=== PATIENT | female | born 1940 | race Caucasian/White ===

== ENCOUNTER 2019-04-10 13:31 | Inpatient (IN) | payer MEDICARE, OTHER ==
[~2019-04-10] VITALS: Ht 172.7 cm; Wt 128.4 kg
[~2019-04-10 13:31] MED LIST: ALEVE220 MG PO; ASPIRIN EC81 MG PO; ATENOLOL50 MG PO; COUMADIN5 MG PO; HYDROCODON-ACE1 EA11 PO; IRON18 MG PO; MAGNESIUM OXID250 MG PO; MIRALAX17 GM PO; OXYCODONE HCL5 MG PO; PACERONE200 MG PO; PRAVACHOL20 MG PO; VITAMIN C100 MG PO; VITAMIN D-32000 UNI1 PO; XARELTO10 MG PO
--- NOTE | 2019-04-12 09:07 | CONS ---
[facility] [address], [place] [address] Signed DATE OF CONSULTATION: 04/11/2019 CHIEF COMPLAINT: Left groin wound. HISTORY OF PRESENT ILLNESS: Kassie is a 78-year-old female, whom I have known from the past for her colonoscopy. 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 However, she does use a cane and a walker after her cervical and lumbar surgeries. She had been in atrial fibrillation and underwent a cardiac ablation through the left groin access. Unfortunately, she went back 2 days later with rather significant hematoma in her left thigh with ongoing bleeding and a pseudoaneurysm in that left profunda artery. She had that repaired by her vascular surgeon, Dr. Mullen. The subcutaneous tissues were closed, but the skin and dermis were left open. She now has a wound VAC in the left groin. She has a 10 to 12 cm long vertical incision over that left groin for her repair. She is also quite deconditioned going along with her obesity. She is now in our swing bed here at [facility]. I have been asked to evaluate her left groin and help manage the wound VAC. In the meantime, she is doing quite well. PAST MEDICAL HISTORY: Paroxysmal atrial fibrillation, hypertension, hyperlipidemia, mood disorder, degenerative disk disease, migraines, obesity, TIA, hiatal hernia, cardiomegaly, possible pulmonary hypertension, cervical spinal stenosis, and carpal tunnel syndrome. PAST SURGICAL HISTORY: Includes a left total knee replacement, cardiac ablation on 03/31/2019, L3 through L5 fusion, cataract surgery, cholecystectomy, colonoscopy, and neck surgery. SOCIAL HISTORY: She does not smoke, but has a drink once in a while. 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 She still lives independently in her house and drives. However, she does use a cane and a walker to ambulate following her spinal surgeries. She is a full code. Her primary care provider is Dr. Parvez Vail. Her brother is Leo Tay at [phone]. Her operations and maintenance supervisor is Lori Recinos DO. Her vascular surgeon is Dr. Breana Mullen and her stock holder is Dr. Elvin Jamil. Her orthopedic surgeon is Dr. Michael Will. FAMILY HISTORY: Mom had osteoarthritis. Paternal grandmother had diabetes. She is not aware of her father's history. Electronically Signed By: LAINE DOMINGUEZ MD 04/12/19 0907 PATIENT NAME: KASSIE CUMMINS CONSULTATION DATE OF : 44 REPORT #: [id number] PHYSICIAN: LAINE DOMINGUEZ MD PCP: PARVEZ VAIL MD REPORT IS CONFIDENTIAL AND NOT TO BE RELEASED WITHOUT AUTHORIZATION [address] [address] Signed REVIEW OF SYSTEMS: She had 10 systems reviewed and really nothing new since I have seen her several years ago other than the heart issues. ALLERGIES: Simvastatin and Lyrica. MEDICATIONS: 1. Amiodarone. 2. Pravastatin. 3. Coumadin. 4. Atenolol. 5. Vitamin D. 6. Naproxen. 7. Magnesium oxide. 8. Vitamin B12. 9. Senokot S. 10. Lovenox. 11. MiraLAX. PHYSICAL EXAMINATION: VITAL SIGNS: Her blood pressure is 112/21, heart rate 66, respiratory rate 16, temperature is 98.2. She is 96% on room air. She is 5 feet 8 inches at 128 kg. GENERAL: Kassie is a 78-year-old female who appears overall healthy and at her stated age. She does have morbid obesity. She is alert, awake, and interactive. LUNGS: Clear to auscultation. HEART: Regular rate and rhythm without murmur. ABDOMEN: Obese, but soft. Left groin shows her wound VAC over the vertical incision. EXTREMITIES: She has significant ecchymoses throughout her thigh and down toward her ankle. It is already starting to lighten up in color. LABORATORY DATA: Her white blood cell count is 8.8, hemoglobin 10.0, neutrophils 78, BUN 12, creatinine 0.6. INR 1.5. Liver function tests are negative. Albumin is 2.3. Her recent stress test was negative. Her recent echocardiogram showed her left ventricular ejection fraction 66%. ASSESSMENT/PLAN: Kassie is a 78-year-old female status post cardiac ablation through the left groin approach. She had bleeding and a pseudoaneurysm in that left profundus requiring repair by her vascular surgeon. The skin has been left open. She has a small wound VAC over that. She is deconditioned and is now on our swing bed. We will follow along from a distance and at some point she may be able to close that wound secondarily once there is some granulation tissue and things settle down. I have reviewed this with Kassie and her Electronically Signed By: LAINE DOMINGUEZ MD 04/12/19 0907 PATIENT NAME: KASSIE CUMMINS [facility] CONSULTATION DATE OF : 44 REPORT #: [id number] PHYSICIAN: LAINE DOMINGUEZ MD PCP: PARVEZ VAIL MD REPORT IS CONFIDENTIAL AND NOT TO BE RELEASED WITHOUT AUTHORIZATION [facility] [address] [place] [address] Signed nurse. They have expressed understanding. She has expressed understanding and agrees with above plan. Laine Dominguez MD ALB/MODL /[id number] cc: MD Parvez Faulkner MD Dr. Patrick Aquilina Lindsay Frye, DO Dr. Breana Mullen Copies: LAINE DOMINGUEZ MD, MALCOLM MD ~ Electronically Signed By: LAINE DOMINGUEZ MD 04/12/19 0907 PATIENT NAME: KASSIE CUMMINS CONSULTATION DATE OF : 44 REPORT #: [id number] PHYSICIAN: LAINE DOMINGUEZ MD PCP: PARVEZ VAIL MD REPORT IS CONFIDENTIAL AND NOT TO BE RELEASED WITHOUT AUTHORIZATION
[2019-04-29] MEDS ORDERED: POLYETHYLENE GL17 GM PO (08:49)
[2019-04-29] MEDS ORDERED: DOK PLUS TABLE1 EACH PO (08:50)
[2019-04-29] MEDS ORDERED: VITAMIN B-121000 MCG PO (08:51)
[2019-04-29] MEDS ORDERED: NYSTATIN1 EAC2 TOP (08:52)
== END 2019-04-29 10:45 | disposition home health service (06) | DRG 556 ==
LOC: MS 13:31
PROVIDERS: ADMIT Internal Medicine
DX: M79.605 Pain in left leg (principal); I97.638 Postprocedural hematoma of a circulatory system organ or structure following other circulatory system procedure; Z68.41 Body mass index [BMI] 40.0-44.9, adult; M79.89 Other specified soft tissue disorders; I48.0 Paroxysmal atrial fibrillation; I10 Essential (primary) hypertension; E78.5 Hyperlipidemia, unspecified; F39 Unspecified mood [affective] disorder; G43.809 Other migraine, not intractable, without status migrainosus; E66.01 Morbid (severe) obesity due to excess calories; M48.02 Spinal stenosis, cervical region; Z48.01 Encounter for change or removal of surgical wound dressing; Z88.8 Allergy status to other drugs, medicaments and biological substances; Z86.73 Personal history of transient ischemic attack (TIA), and cerebral infarction without residual deficits; Z79.01 Long term (current) use of anticoagulants; Z79.1 Long term (current) use of non-steroidal anti-inflammatories (NSAID); Z79.899 Other long term (current) drug therapy
CPT/HCPCS: 36415; 81001; 82607; 82728; 82746; 83540; 84466; 85025; 85045; 85610; 87077; 87088; 87186; 97110; 97112; 97116; 97162; 97165; 97530; 97535; A9270; J1650

== ENCOUNTER 2019-07-17 03:59 | Emergency (ER) | payer MEDICARE, OTHER ==
[~2019-07-17] VITALS: Ht 172.7 cm; Wt 128.4 kg
--- OUTSIDE RECORDS SUMMARY | ~2019-07-17 | XMS | Encounter Summary ---
Demographics + + + | Address | [address] | | | [place] [address] | + + + | Home Phone | | + + + | Preferred Language | Unknown | + + + | Marital Status | | + + + | Baptism Affiliation | Unknown | + + + | Race | Unknown | + + + | Ethnic Group | Unknown | + + + Author + + + | Author | Located Within [facility] | | | and [place] | + + + | Organization | Located Within [facility] | | | and [place] | + + + | Address | Unknown | + + + | Phone | Unavailable | + + + Support + + + + + | Name | Relationship | Address | Phone | + + + + + | Veronica Anderson | ECON | [place] | | | | | [phone] | | + + + + + | Beatrice Paulson | ECON | [address] | | | | | [place] | | | | | [address] | | + + + + + Care Team Providers + +------+ + | Care Street Light Cleaner Name | Role | Phone | + +------+ + | Venkata Pettit MD | PCP | | + +------+ + Reason for Visit +--------+ + | Reason | Comments | +--------+ + | Other | Having pain | +--------+ + Encounter Details +--------+ + + + + | Date | Type | Department | Care Team | Description | +--------+ + + + + | 01/16/ | Telephone | [facility] | Justen Ribera | Other (Having pain) | | 2011 | | NEUROSURGERY [address] | [facility] [address] | | | | | [address] | [place] | | | | | [place] | [address] | | | | | [address] | [phone] | | | | | [phone] | | | +--------+ + + + + Social History + +-------+ +--------+------+ | Tobacco Use | Types | Packs/Day | Years | Date | | | | | Used | | + +-------+ +--------+------+ | Never Assessed | | | | | + +-------+ +--------+------+ + + + | Sex Assigned at | Date Recorded | | | | + + + | Not on file | | + + + + + + + | Job Start Date | Occupation | Industry | + + + + | Not on file | Not on file | Not on file | + + + + + + + + | Travel History | Travel Start | Travel End | + + + + + + | No recent travel history available. | + + documented as of this encounter Plan of Treatment +--------+---------+ + + + | Date | Type | Specialty | Care Team | Description | +--------+---------+ + + + | 10/06/ | Office | Cardiology | Elvin Jamil | | | 2019 | Visit | | [address] | | | | | | [facility] | | | | | | [place] | | | | | | [address] | | | | | | | | +--------+---------+ + + + documented as of this encounter Visit Diagnoses Not on filedocumented in this encounter"
--- OUTSIDE RECORDS SUMMARY | ~2019-07-17 | XMS | Clinical Summary ---
Demographics + + + | Address | [address] | | | [place] [address] | + + + | Home Phone | | + + + | Preferred Language | Unknown | + + + | Marital Status | | + + + | Jewish Affiliation | Unknown | + + + | Race | Unknown | + + + | Ethnic Group | Unknown | + + + Author + + + | Author | [facility] | | | and [place] | + + + | Organization | [facility] | | | and [place] | + + + | Address | Unknown | + + + | Phone | Unavailable | + + + Support + + + + + | Name | Relationship | Address | Phone | + + + + + | Veronica Anderson | ECON | [place] | | | | | [address] | | + + + + + | Beatrice Paulson | ECON | [address] | | | | | [place] | | | | | [address] | | + + + + + Care Team Providers + +------+ + | Care Armored Vehicle Officer Name | Role | Phone | + +------+ + | Parvez Vail MD | PCP | | + +------+ + Allergies + + + + + + | Active Allergy | Reactions | Severity | Noted | Comments | | | | | Date | | + + + + + + | Pregabalin | Other (See Comments) | Medium | 12/02/19 | INTOLERANCE- | | | | | 13 | CONSTIPATION, AND | | | | | | DIDN'T LIKE HOW IT | | | | | | MADE HER FEEL. | + + + + + + Medications + + + +---------+------+------+-------+ | Medication | Sig | Dispensed | Refills | Star | End | Statu | | | | | | t | Date | s | | | | | | Date | | | + + + +---------+------+------+-------+ | Magnesium 250 MG | Take 250 mg by mouth | | 0 | 10/12 | | Activ | | TABS | Daily. | | | 05/31 | | e | | | | | | 12 | | | + + + +---------+------+------+-------+ | Cholecalciferol | Take 4,000 Units by | | 0 | | | Activ | | (VITAMIN D3 PO) | mouth Daily. | | | | | e | + + + +---------+------+------+-------+ | atenolol | Take 50 mg by mouth | | 0 | 02/12 | | Activ | | (TENORMIN) 50 mg | Daily. | | | 10/31 | | e | | tablet | | | | 14 | | | + + + +---------+------+------+-------+ | pravastatin | Take 20 mg by mouth | | 0 | | | Activ | | (PRAVACHOL) 20 mg | nightly. | | | | | e | | tablet | | | | | | | + + + +---------+------+------+-------+ | cyanocobalamin | Take 500 mcg by | | 0 | | | Activ | | (VITAMIN B-12) 500 | mouth Daily. | | | | | e | | mcg tablet | | | | | | | + + + +---------+------+------+-------+ | warfarin | Take 1 tablet by | | 0 | 03/14 | | Activ | | (COUMADIN) 5 mg | mouth Daily. - | | | 10/31 | | e | | tablet | adjust as directed | | | 20 | | | | | by coumadin clinic - | | | | | | | | continue usual | | | | | | | | dosing upon | | | | | | | | discharge | | | | | | + + + +---------+------+------+-------+ | amiodarone | Take 1 tablet by | 90 | 3 | 12/12 | 05 | Disco | | (PACERONE) 200 mg | mouth Daily. | tablet | | 04/02 | 0/20 | ntinu | | tablet | | | | 19 | 20 | ed | + + + +---------+------+------+-------+ | naloxone (NARCAN) | 1 spray by Nasal | 2 each | 1 | 03/2 | 05/2 | Disco | | 4 mg/nasal spray | route as needed for | | | 0/20 | 0/20 | ntinu | | | Decreased | | | 20 | 20 | ed | | | Responsiveness (May | | | | | (Ther | | | repeat with second | | | | | apy | | | device into other | | | | | compl | | | nostril after 2 | | | | | eted) | | | minutes). | | | | | | + + + +---------+------+------+-------+ Active Problems + + + | Problem | Noted Date | + + + | Hematoma of left thigh | 04/03/2019 | + + + | Acute pain | 04/03/2019 | + + + | Symptomatic anemia | 04/03/2019 | + + + | Atrial fibrillation, chronic | 04/03/2019 | + + + | Elevated troponin | 04/03/2019 | + + + | Bleeding | 04/03/2019 | + + + + + | Overview: Added automatically from request for surgery | | [id number] | + + + + + | Pseudoaneurysm | 04/03/2019 | + + + + + | Overview: Added automatically from request for surgery | | [id number] | + + + + + | Decreased hemoglobin | 04/03/2019 | + + + + + | Overview: Added automatically from request for surgery | | [id number] | + + + + + | Chronic atrial fibrillation | 04/03/2019 | + + + + + | Overview: Added automatically from request for surgery | | [id number] | + + + + + | Essential hypertension | 04/03/2019 | + + + + + | Overview: Added automatically from request for surgery | | [id number] | + + + + + | Pseudoaneurysm following procedure | 04/03/2019 | + + + | Acute blood loss anemia | 04/03/2019 | + + + | Other persistent atrial fibrillation | 12/19/2018 | + + + + + | Overview: Added automatically from request for surgery | | [id number] | + + + + + | Persistent atrial fibrillation | 11/09/2018 | + + + | Pes anserine bursitis-left | 06/25/2017 | + + + | Chronic neck pain | 06/25/2017 | + + + | Foraminal stenosis of cervical region | 01/18/2016 | + + + | Chronic bilateral low back pain without sciatica | 07/20/2015 | + + + | DDD (degenerative disc disease), lumbar | 07/20/2015 | + + + | Gait abnormality | 07/20/2015 | + + + | Facet arthritis of lumbar region | 05/02/2015 | + + + | S/P lumbar fusion | 02/29/2012 | + + + | Lumbar spinal stenosis | 02/29/2012 | + + + | Spondylolisthesis of lumbar region | 02/29/2012 | + + + | Foraminal stenosis of lumbosacral region | 02/29/2012 | + + + | Hip pain, bilateral | 02/29/2012 | + + + | Left shoulder pain | 02/29/2012 | + + + | Statin-induced myositis | 02/29/2012 | + + + | S/P cervical spinal fusion | 02/29/2012 | + + + | SACROILIITIS | | + + + | Spinal stenosis, cervical region | | + + + | TROCHANTERIC BURSITIS | | + + + | DDD (degenerative disc disease), cervical | | + + + | OBESITY | | + + + | Hypertension | | + + + | HYPERCHOLESTEROLEMIA | | + + + | Myofascial pain syndrome, cervical | | + + + | PARESTHESIA | | + + + | CARPAL TUNNEL SYNDROME | | + + + Encounters +--------+ + + + + | Date | Type | Specialty | Care Team | Description | +--------+ + + + + | 07/14/ | Telephone | Vascular Surgery | Pranav Villar DNP | Appointment (07/20/19) | | 2020 | | | | | +--------+ + + + + | 07/12/ | Orders Only | Cardiology | Elvin Jamil | | | 2020 | | | MD Reji | | +--------+ + + + + | 06/30/ | Office | Cardiology | Elvin Jamil | Paroxysmal atrial | | 2019 | Visit | | MD Reji | fibrillation (HCC) | | | | | | (Primary Dx); Sleep | | | | | | apnea, unspecified | | | | | | type | +--------+ + + + + | 06/29/ | Telephone | Cardiology | Elvin Jamil | Screening For | | 2019 | | | MD Reji | Communicable Disease | +--------+ + + + + | 06/15/ | Office | Vascular Surgery | Pranav Villar DNP | Pseudoaneurysm | | 2019 | Visit | | | following procedure | | | | | | (HCC) (Primary Dx); | | | | | | Groin hematoma, | | | | | | subsequent encounter | +--------+ + + + + | 05/25/ | Office | Vascular Surgery | Pranav Villar DNP | Pseudoaneurysm | | 2019 | Visit | | | following procedure | | | | | | (HCC) (Primary Dx); | | | | | | Groin hematoma, | | | | | | subsequent | | | | | | encounter; PAD | | | | | | (peripheral artery | | | | | | disease) ([facility]) | +--------+ + + + + | 05/21/ | Telephone | Vascular Surgery | Pranav Villar DNP | Other | | 2019 | | | | | +--------+ + + + + | 04/30/ | Telephone | Vascular Surgery | Priscilla Fuentes, | Follow-up | | 2019 | | | RN | | +--------+ + + + + | 04/30/ | Orders Only | Vascular Surgery | Pranav Villar DNP | | | 2019 | | | | | +--------+ + + + + | 04/28/ | Office | Cardiology | Elvin Jamil | Paroxysmal atrial | | 2019 | Visit | | MD Reji | fibrillation (HCC) | | | | | | (Primary Dx); Sleep | | | | | | apnea, unspecified | | | | | | type | +--------+ + + + + | 04/26/ | Office | Vascular Surgery | Pranav Villar DNP | Pseudoaneurysm | | 2019 | Visit | | | following procedure | | | | | | (HCC) (Primary Dx); | | | | | | Groin hematoma, | | | | | | subsequent encounter | +--------+ + + + + | 04/26/ | Hospital | Radiology | | PAD (peripheral | | 2019 | Encounter | | | artery disease) | | | | | | (HCC) | +--------+ + + + + | 04/19/ | Hospital | Radiology | | No Show | | 2019 | Encounter | | | | +--------+ + + + + from Last 3 Months Immunizations + + + + | Name | Administration Dates | Next Due | + + + + | INFLUENZA 67 Y OR >, | 10/10/2018, 11/01/2014 | | | TRIVALENT HIGH-DOSE | | | + + + + | INFLUENZA, [id number], | 02/25/2009 | | | UNSPECIFIED | | | + + + + | PNEUMOCOCCAL | 04/06/2014 | | | CONJUGATE 13-VALENT | | | | (PCV13) | | | + + + + | PNEUMOCOCCAL | 04/18/2015, 01/12/2008, 06/11/1995 | | | POLYSACCHARIDE | | | | 23-VALENT (PPSV23) | | | + + + + | TDAP, (ADOL/ADULT) | 12/15/2014 | | + + + + | ZOSTER, 1 DOSE | 01/31/2018, 10/29/2017, 06/21/2006 | | | (ZOSTAVAX) | | | + + + + Family History + + +------+ + | Medical History | Relation | Name | Comments | + + +------+ + | Diabetes | Maternal | | | | | Grandmoth | | | | | er | | | + + +------+ + | Arthritis | Mother | | | + + +------+ + | No known problems | Mother | | | + + +------+ + + +---------+ + + | Relation | Name | Status | Comments | + +---------+ + + | Father | UNKNOWN | | | + +---------+ + + | Maternal Grandmother | | | | + +---------+ + + | Mother | | | | + +---------+ + + | Mother | | | car accident | | | | (Age | | | | | 49) | | + +---------+ + + | Mother | | | | + +---------+ + + Social History + +-------+ +--------+------+ | Tobacco Use | Types | Packs/Day | Years | Date | | | | | Used | | + +-------+ +--------+------+ | Never Smoker | | | | | + +-------+ +--------+------+ + +---+---+---+ | Smokeless Tobacco: | | | | | Never Used | | | | + +---+---+---+ + + +---------+ + | Alcohol Use | Drinks/Week | oz/Week | Comments | + + +---------+ + | Yes | | | Alcoholic | | | | | Drinks/day: GLASS OF | | | | | WINE WITH FRIENDS | + + +---------+ + + + + | Sex Assigned at [...] recent travel history available. | + + Last Filed Vital Signs + + + + + | Vital Sign | Reading | Time Taken | Comments | + + + + + | Blood Pressure | 134/77 | 07/01/2019 12:55 PM | | | | | PDT | | + + + + + | Pulse | 71 | 07/01/2019 12:55 PM | | | | | PDT | | + + + + + | Temperature | 36.4 C (97.6 F) | 06/16/2019 2:17 PM | | | | | PDT | | + + + + + | Respiratory Rate | 18 | 04/10/2019 8:01 AM | | | | | PST | | + + + + + | Oxygen Saturation | 98% | 07/01/2019 12:55 PM | | | | | PDT | | + + + + + | Inhaled Oxygen | - | - | | | Concentration | | | | + + + + + | Weight | 123.5 kg (272 lb 4.8 | 07/01/2019 12:55 PM | | | | oz) | PDT | | + + + + + | Height | 172.7 cm (5' 8") | 07/01/2019 12:55 PM | | | | | PDT | | + + + + + | Body Mass Index | 41.4 | 07/01/2019 12:55 PM | | | | | PDT | | + + + + + Plan of Treatment +--------+---------+ + + + | Date | Type | Specialty | Care Team | Description | +--------+---------+ + + + | 10/06/ | Office | Cardiology | Elvin Jamil | | | 2019 | Visit | | MD [facility] [address] | | | | | | [facility] | | | | | | [place] | | | | | | [address] | | | | | | | | +--------+---------+ + + + + + + + + | Health Maintenance | Due Date | Last Done | Comments | + + + + + | Breast Cancer | | 04/10/2011 | | | Screening | 4 | | | + + + + + | Adult Annual | | | | | Wellness Visit | 5 | | | + + + + + | Vaccine: Zoster (2 | | 01/31/2018, 10/29/2017, | | | of 3) | 9 | 06/21/2006 | | + + + + + | Vaccine: | | 12/15/2014 | | | Dtap/Tdap/Td (2 - | 5 | | | | Td) | | | | + + + + + | Vaccine: | Completed | 04/18/2015, 04/06/2014, | | | Pneumococcal 65+ | | 01/12/2008, Additional history | | | | | exists | | + + + + + | Vaccine: Influenza | Completed | 10/10/2018, 11/01/2014, | | | | | 02/25/2009 | | + + + + + Procedures + +--------+ + + + | Procedure Name | Priori | Date/Time | Associated Diagnosis | Comments | | | ty | | | | + +--------+ + + + | ECG 12 LEAD | Routin | 07/01/2019 | Paroxysmal atrial | Results for this | | | e | 12:52 PM | fibrillation (HCC) | procedure are in the | | | | PDT | | results section. | + +--------+ + + + | ECG 12 LEAD | Routin | 04/29/2019 | Paroxysmal atrial | Results for this | | | e | 1:09 PM | fibrillation (HCC) | procedure are in the | | | | PDT | | results section. | + +--------+ + + + | VAS LOWER EXTREMITY | Routin | 04/27/2019 | PAD (peripheral | Results for this | | ARTERIAL LEFT W CHRIS | e | 10:18 AM | artery disease) | procedure are in the | | MULTI LEVEL | | PDT | (HCC) | results section. | + +--------+ + + + from Last 3 Months Results ECG 12 lead (07/01/2019 12:52 PM PDT)Only the most recent of 2 results within the time ileana od is included. + + + + + + | Component | Value | Ref Range | Performed | Pathologist | | | | | At | Signature | + + + + + + | VENTRICULAR | 71 | BPM | [facility] | | | RATE EKG | | | | | + + + + + + | ATRIAL RATE | 71 | BPM | [facility] | | + + + + + + | P-R | 242 | ms | [facility] | | | INTERVAL | | | | | + + + + + + | QRS | 90 | ms | [facility] | | | DURATION | | | | | + + + + + + | Q-T | 422 | ms | [facility] | | | INTERVAL | | | | | + + + + + + | Q-T | 458 | ms | [facility] | | | INTERVAL | | | | | | (CORRECTED) | | | | | + + + + + + | P WAVE AXIS | 67 | degrees | [facility] | | + + + + + + | QRS AXIS | -2 | degrees | [facility] | | + + + + + + | T AXIS | 27 | degrees | [facility] | | + + + + + + | INTERPRETAT | Please refer to | | [facility] | | | ION TEXT | Providers office visit | | | | | | note for Providers | | | | | | Interpretation.Confirmed | | | | | | by ELVIN JAMIL MD | | | | | | ([id number]) on 07/01/2019 | | | | | | 4:37:55 PM | | | | + + + + + + + + | Specimen | + + | | + + + + + | Narrative | Performed At | + + + | | | + + + + +---------+ + + | Performing | Address | City/State/Zipcode | Phone Number | | Organization | | | | + +---------+ + + | [facility] | | | | + +---------+ + + VAS Lwr Ext Art Lt w CHRIS Multi Lvl (04/27/2019 10:18 AM PDT) + + | Specimen | + + | | + + + + + | Impressions | Performed At | + + + | 1. No hemodynamically significant stenosis of the left lower | [facility] | | extremity arterial tree. 2. Triphasic waveforms throughout. 3. | | | Three-vessel runoff. 4. Avascular anechoic hematoma versus seroma in | | | the proximal thigh adjacent to the wound VAC measuring 8.6 x 2.5 cm. | | | 1. Triphasic waveforms at all ankle sites. 2. ABIs and TBIs within | | | normal limits. Criteria 0.97 to 1.25 No significant PAD 0.75 | | | to 0.96 Mild 0.50 to 0.74 Moderate <0.50 Severe <0.30 Critical | | | (Noninvasive Vascular Diagnosis, [place], [employer], 2002, | | | [place]) Signed by: Na Blanco Shawn Sign Date/Time: | | | 04/27/2019 10:41 AM | | + + + + + + | Narrative | Performed At | + + + | VASCULAR LOWER EXTREMITY ARTERIAL LEFT W CHRIS MULTI LEVEL | [facility] | | CLINICAL INFORMATION: Status post left angio on 04/04 COMPARISON: | | | CT ANGIOGRAM LOWER EXTREMITY LEFT W CONTRAST (04/03/2019); VAS LOWER | | | EXTREMITY ARTERIES LEFT (04/03/2019); LOWER EXTREMITY ANY JOINT | | | (03/04/2009); PROCEDURE: Dorsalis pedis and posterior tibial | | | arteries used for CHRIS calculation. Ankle-brachial indices, segmental | | | pressures, doppler waveforms and pulse volume waveforms were obtained | | | bilaterally. FINDINGS: Vessel, peak systolic velocity, waveform | | | analysis: Left lower extremity: SWIMMING POOL ATTENDANT prox: 196, triphasic DFA | | | prox: 141, triphasic SFA prox: 152, triphasic SFA Mid: 99, triphasic | | | SFA dist: 96, triphasic Pop mid: 114, triphasic CARLOS prox: 106, | | | triphasic CARLOS dist: 97, triphasic LICENSED CLINICAL PSYCHOLOGIST prox: 101, triphasic LICENSED CLINICAL PSYCHOLOGIST | | | dist: 53, triphasic Peroneal prox: 23, triphasic Peroneal dist: 27, | | | triphasic Right brachial systolic blood pressure: 137 mmHg Left | | | brachial systolic blood pressure: 132 mmHg Right posterior tibial: | | | 171, CHRIS 1.25 Right dorsalis pedis: 154, CHRIS 1.12 Right great toe: | | | 94, TBI 0.69 Triphasic right ankle waveforms, with preserved digital | | | waveform. Left posterior tibial: 168, CHRIS 1.23 Left dorsalis | | | pedis: 156, CHRIS 1.14 Left great toe: 90, TBI 0.66 Preserved | | | triphasic ankle waveforms, with blunted digital waveform. | | + + + + + | Procedure Note | + + | Bhavin, Rad Results In - 04/27/2019 10:45 AM PDT | | VASCULAR LOWER EXTREMITY ARTERIAL LEFT W CHRIS MULTI LEVEL | | | | CLINICAL INFORMATION: | | Status post left angio on 04/04 | | | | COMPARISON: | | CT ANGIOGRAM LOWER EXTREMITY LEFT W CONTRAST (04/03/2019); VAS LOWER | | EXTREMITY ARTERIES LEFT (04/03/2019); LOWER EXTREMITY ANY JOINT | | (03/04/2009); | | | | PROCEDURE: | | Dorsalis pedis and posterior tibial arteries used for CHRIS calculation. | | Ankle-brachial indices, segmental pressures, doppler waveforms and | | pulse volume waveforms were obtained bilaterally. | | | | FINDINGS: | | Vessel, peak systolic velocity, waveform analysis: | | | | Left lower extremity: | | SWIMMING POOL ATTENDANT prox: 196, triphasic | | DFA prox: 141, triphasic | | SFA prox: 152, triphasic | | SFA Mid: 99, triphasic | | SFA dist: 96, triphasic | | Pop mid: 114, triphasic | | CARLOS prox: 106, triphasic | | CARLOS dist: 97, triphasic | | LICENSED CLINICAL PSYCHOLOGIST prox: 101, triphasic | | LICENSED CLINICAL PSYCHOLOGIST dist: 53, triphasic | | Peroneal prox: 23, triphasic | | Peroneal dist: 27, triphasic | | | | Right brachial systolic blood pressure: 137 mmHg | | Left brachial systolic blood pressure: 132 mmHg | | | | Right posterior tibial: 171, CHRIS 1.25 | | Right dorsalis pedis: 154, CHRIS 1.12 | | Right great toe: 94, TBI 0.69 | | Triphasic right ankle waveforms, with preserved digital waveform. | | | | Left posterior tibial: 168, CHRIS 1.23 | | Left dorsalis pedis: 156, CHRIS 1.14 | | Left great toe: 90, TBI 0.66 | | Preserved triphasic ankle waveforms, with blunted digital waveform. | | | | IMPRESSION: | | 1. No hemodynamically significant stenosis of the left lower extremity | | arterial tree. | | 2. Triphasic waveforms throughout. | | 3. Three-vessel runoff. | | 4. Avascular anechoic hematoma versus seroma in the proximal thigh | | adjacent to the wound VAC measuring 8.6 x 2.5 cm. | | 1. Triphasic waveforms at all ankle sites. | | 2. ABIs and TBIs within normal limits. | | | | | | Criteria | | 0.97 to 1.25 No significant PAD | | 0.75 to 0.96 Mild | | 0.50 to 0.74 Moderate | | <0.50 Severe | | <0.30 Critical | | (Noninvasive Vascular Diagnosis, [place], [employer], 2002, [place] | | | | | | | | Signed by: Na Blanco, Samir | | Sign Date/Time: 04/27/2019 10:41 AM | + + + +---------+ + + | Performing | Address | City/State/[place] [facility] | Phone Number | | Organization | | | | + +---------+ + + | [facility] | | | | + +---------+ + + from Last 3 Months Insurance + +--------+ +--------+ + +--------+ | Payer | Benefi | Subscriber | Effect | Phone | Address | Type | | | t Plan | ID | elizabeth | | | | | | / | | Dates | | | | | | Group | | | | | | + +--------+ +--------+ + +--------+ | MEDICARE | MEDICA | [id number] | 10/13/19 | [phone] | | Medica | | | RE | | 08-Pre | 5 | | re | | | PART A | | sent | | | | | | AND B | | | | | | + +--------+ +--------+ + +--------+ | MEDICARE | MEDICA | [id number] | | [phone] | | Medica | | | RE | | 012-Pr | 5 | | re | | | PART A | | esent | | | | | | AND B | | | | | | + +--------+ +--------+ + +--------+ | MODA | MODA | [id number] | | [phone] | [address] | Indemn | | | HEALTH | | 00[address] | [phone] | [phone] | ity | | | MDCR | | esent | | [place], | | | | [place] | | | | [place] [address] | | + +--------+ +--------+ + +--------+ | MODA | MODA | [id number] | 02/11/19 | [phone] | [address] | Indemn | | | HEALTH | | 19-Pre | 9 | [phone] | ity | | | MDCR | | sent | | [place], | | | | [place] | | | | [place] [address] | | + +--------+ +--------+ + +--------+ + +--------+ +--------+ + + | Guarantor Name | Accoun | Relation to | Date | Phone | Billing Address | | | t Type | Patient | of | | | | | | | | | | + +--------+ +--------+ + + | Kassie Bear | Person | Self [birth year] | [address] | | | al/Fam | | 1941 | [phone] | [place], [place] | | | [place] | | | [address] (Home) | [phone] | + +--------+ +--------+ + + | Kassie Bear | Person | Self [birth year] | [address] | | | al/Fam | | 1941 | [phone] | [place], [place] | | | [place] | | | 8 (Home) | [address] | + +--------+ +--------+ + + Advance Directives + + + + + | Type | Date Recorded | Patient | Explanation | | | | School Speech Therapist | | + + + + + | Power of | | | | | Loan Documentation Specialist | | | | + + + + + | Advance | 12/22/2018 | | | | Directive | 11:39 AM | | | + + + + + + + + + + | Code Status | Date | Date | Comments | | | Activated | Inactivated | | + + + + + | Full Code | 04/03/2019 | 04/10/2019 | | | | 10:30 PM | 2:31 PM | | + + + + +
--- OUTSIDE RECORDS SUMMARY | ~2019-07-17 | XMS | Encounter Summary ---
Demographics + + + | Address | [address] | | | [place] [address] | + + + | Home Phone | | + + + | Preferred Language | Unknown | + + + | Marital Status | | + + + | Uatsdin Affiliation | Unknown | + + + | Race | Unknown | + + + | Ethnic Group | Unknown | + + + Author + + + | Author | [facility] | | | and [place] | + + + | Organization | [facility] | | | and [place] | + + + | Address | Unknown | + + + | Phone | Unavailable | + + + Support + + + + + | Name | Relationship | Address | Phone | + + + + + | Veronica Anderson | ECON | [place] | | | | | [address] | | + + + + + | Beatrice Paulson | ECON | [address] | | | | | [place] | | | | | [address] | | + + + + + Care Team Providers + +------+ + | Care Plastic Panel Installer Name | Role | Phone | + +------+ + | Parvez Vail MD | PCP | | + +------+ + Reason for Visit + + + | Reason | Comments | + + + | Medication Refill | | + + + Encounter Details +--------+--------+ + + + | Date | Type | Department | Care Team | Description | +--------+--------+ + + + | 12/23/ | Refill | [facility] | Destini Espinoza | Medication Refill | | 2019 | | CARDIOLOGY FAUSTO Rubin Manager Contract | | | | | [address] | | | | | | [place], [place] | | | | | | [address] | | | | | | [phone] | | | +--------+--------+ + + + Social History + +-------+ [...] Elvin Jamil | | | 2020 | Visit | | [address] | | | | | | [address] | | | | | | [place] | | | | | | [address] | | | | | | | | +--------+---------+ + + + documented as of this encounter Visit Diagnoses Not on filedocumented in this encounter"
--- OUTSIDE RECORDS SUMMARY | ~2019-07-17 | XMS | Encounter Summary ---
Demographics + + + | Address | [address] | | | [place] [address] | + + + | Home Phone | | + + + | Preferred Language | Unknown | + + + | Marital Status | | + + + | Oriental Orthodox Affiliation | Unknown | + + + | Race | Unknown | + + + | Ethnic Group | Unknown | + + + Author + + + | Author | [facility] | | | and [place] | + + + | Organization | [facility] | | | and [place] | + + + | Address | Unknown | + + + | Phone | Unavailable | + + + Support + + + + + | Name | Relationship | Address | Phone | + + + + + | Veronica Anderson | ECON | [place] | | | | | [address] | | + + + + + | Beatrice Paulson | ECON | [address] | | | | | [place] | | | | | [address] | | + + + + + Care Team Providers + +------+ + | Care Quality Coordinator Name | Role | Phone | + +------+ + | Parvez Vail MD | PCP | | + +------+ + Reason for Visit + + + | Reason | Comments | + + + | New Patient | | + + + Evaluate & Treat (Routine) + + + + + + + | Status | Reason | Specialty | Diagnoses / | Referred By | Referred To | | | | | Procedures | Contact | Contact | + + + + + + + | Authorized | Specialty | Cardiology | Diagnoses | Recinos, | [place], | | | Services | | Other | DO Lori | Elvin | | | Required | | persistent | [address] | MD Reji | | | | | atrial | [address] | [address] | | | | | fibrillation | [address] | [address], [address] | | | | | ([facility]) | [place], [place] | [place], | | | | | | [address] | [place] [address] | | | | | | Phone: | Phone: | | | | | | [phone] | [phone] | | | | | | Fax: | Fax: | | | | | | [phone] | [phone] | + + + + + + + Encounter Details +--------+---------+ + + + | Date | Type | Department | Care Team | Description | +--------+---------+ + + + | 02/18/ | Office | [facility] EP | Elvin Jamil | Persistent atrial | | 2020 | Visit | CARDIOLOGY [place] | MD [address] | fibrillation (HCC) | | | | [address] | [place], [facility] | (Primary Dx); Sleep | | | | [place] | [address] | apnea, unspecified | | | | [address] | [id number] | type | | | | [phone] | | | +--------+---------+ + + + Social History + +-------+ [...] + + documented as of this encounter Last Filed Vital Signs + + + + + | Vital Sign | Reading | Time Taken | Comments | + + + + + | Blood Pressure | 132/74 | 02/18/2019 3:37 PM | | | | | PST | | + + + + + | Pulse | 67 | 02/18/2019 3:37 PM | | | | | PST | | + + + + + | Temperature | - | - | | + + + + + | Respiratory Rate | - | - | | + + + + + | Oxygen Saturation | 98% | 02/18/2019 3:37 PM | | | | | PST | | + + + + + | Inhaled Oxygen | - | - | | | Concentration | | | | + + + + + | Weight | 128.5 kg (283 lb 4.8 | 02/18/2019 3:37 PM | | | | oz) | PST | | + + + + + | Height | 172.7 cm (5' 8") | 02/18/2019 3:37 PM | | | | | PST | | + + + + + | Body Mass Index | 43.08 | 02/18/2019 3:37 PM | | | | | PST | | + + + + + documented in this encounter Patient Instructions Patient Instructions Elvin Jamil MD - 02/18/2019 3:30 PM PSTEliquis 5 mg tw o times a day Xarelto 20 mg ocne a day with dinner Pradaxa 150 mg two times a dayElectronically signed by Elvin Jamil MD at 09/2019 4:24 PM PST documented in this encounter Progress Notes Elvin Jamil MD - 02/18/2019 3:30 PM PSTFormatting of this note might be dif ferent from the original. Subjective: Referring MD: Lori Recinos DO Chief Complaint Patient presents with New Patient HPI: This is a 78 y.o. female who presents today for an initial evaluation of atrial fibril lation. Ms. Bear reports she noted shortness of breath in the summer 2018. She was then sent to cardiology and was noted to be in atrial fibrillation in August 2018. She was starte d on anticoagulation and reports that amiodarone was started around October 2018. Cardiov ersion was then performed in December 2018 with catholic of sinus rhythm. She noted impr ovement in her symptoms but then began to note recurrent symptoms of shortness of breath abo ut 2 to 3 days later. She then followed up with cardiology and atrial fibrillation was agai n noted. She has never had a sleep evaluation. She denies any current chest pain, shortnes s of breath, dizziness, lightheadedness, or recent syncope. She reports her INRs have been above 2 for the past several months. Past Medical History: Diagnosis Date Arthralgia Atrial fibrillation (HCC) Dx 08/29 - AC - amio - CVN 12/30 BACK PAIN, LUMBAR Carpal tunnel syndrome Chronic bilateral low back pain without sciatica 07/20/2015 Degenerative disc disease Facet arthritis of lumbar region 05/02/2015 Hx of spinal fusion Hypercholesterolemia Hyperlipidemia Hypertension Myofascial pain syndrome Neuromyopathy (HCC) Obesity Other chronic pain Paresthesia Pes anserine bursitis-left 06/25/2017 Sacroiliitis (HCC) Spinal stenosis Trochanteric bursitis Past Surgical History: Procedure Laterality Date CARDIOVERSION N/A 12/22/2018 Procedure: CV EP CARDIOVERSION; Surgeon: Lori Recinos DO; [place] [facility] [place] [facility] Cataract Surgery 10/29/2011(left eye, Right eye 01/07/12 CHOLECYSTECTOMY COLONOSCOPY ENDOMETRIAL BIOPSY EYE SURGERY lasered GALLBLADDER SURGERY 12/18/2001 LASER EYE SURGERY Bilateral 04/06/13 Secondary Cataracts Lasered LUMBAR FUSION 01/13/13 L1-L5 Lumbar Fusion LUMBAR FUSION Lumbar Spinal Stenosis 05/24/2009 NECK SURGERY 10/10/[address] 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 Shah, [place] TOTAL KNEE ARTHROPLASTY Left 06/28/[address] Will at [facility] TOTAL KNEE ARTHROPLASTY TRANSTHORACIC ECHOCARDIOGRAM 08/2018 EF 55-60%, mod LA/RA dil, mild-mod MR, mild TR, RVSP 33 Family History Problem Relation Age of Onset Arthritis Mother Diabetes Maternal Grandmother No known problems Mother Social History Socioeconomic History Marital status: Spouse name: Not on file Number of children: Not on file Years of education: Not on file Highest education level: Not on file Tobacco Use Smoking status: Never Smoker Smokeless tobacco: Never Used Substance and Sexual Activity Alcohol use: Yes Comment: Alcoholic Drinks/day: GLASS OF WINE WITH FRIENDS Drug use: No Comment: Drug use: No Review of Systems: Ten system review negative unless noted in HPI. Current Outpatient Medications Medication Sig Dispense Refill amiodarone (PACERONE) 200 mg tablet Take 1 tablet by mouth Daily. 90 tablet 3 atenolol (TENORMIN) 50 mg tablet Take 50 mg by mouth Daily. Cholecalciferol (VITAMIN D3 PO) Take 4,000 Units by mouth Daily. cyanocobalamin (VITAMIN B-12) 500 mcg tablet Take 500 mcg by mouth Daily. Magnesium 250 MG TABS Take 250 mg by mouth Daily. pravastatin (PRAVACHOL) 20 mg tablet Take 20 mg by mouth nightly. warfarin (COUMADIN) 5 mg tablet Take 5 mg by mouth Daily. No current facility-administered medications for this visit. Allergies Allergen Reactions Lyrica [Pregabalin] Other (See Comments) INTOLERANCE- CONSTIPATION, AND DIDN'T LIKE HOW IT MADE HER FEEL. Objective: Vitals: 02/18/19 1537 BP: 132/74 Pulse: 67 PainSc: 0 - No pain PainLoc: Chest Weight: 128.5 kg (283 lb 4.8 oz) Height: 1.727 m (5' 8") Body mass index is 43.08 kg/m. Exam: General: Patient is alert, pleasant, cooperative, and in no acute distress. Eyes: Sclerae anicteric. Ears: External ears normal. Nose: External nose normal. Oral exam: No oral lesions noted. Neck: Trachea midline. No thyromegaly. No elevation of jugular venous pressure. No rice tid bruits. Lungs: Clear to auscultation bilaterally. No wheezes, rales, or rhonchi. Heart: Regular rate and rhythm. Normal S1/S2. No murmurs, gallops, rubs. Abdomen: Bowel sounds present. Soft, nondistended. No masses or hepatosplenomegaly noted . No significant tenderness noted. Extremities: No clubbing or cyanosis noted. No lower extremity edema noted. Pulses: Intact bilateral radial and pedal pulses. Musculoskeletal: No obvious arthritic change noted of the knees. Skin: Warm and dry. Psychiatric: Patient is alert and oriented to person, place, and day. Mood and affect nor mal. Neurological: Patient is intact to light touch in the upper and lower extremities bilateral ly. Review of studies: ECG: Atrial fibrillation with ventricular response rate of 69 bpm, no significant change fr om December 2018 Impression/Plan: Kassie was seen today for new patient. Diagnoses and all orders for this visit: Persistent atrial fibrillation - ECG 12 lead - Case Request - CV/EP LAB: CV EP CARDIOVERSION Sleep apnea, unspecified type Other orders - Vital signs; Standing - Pulse oximetry, continuous; Standing - Cardiac telemetry; Standing - Diet NPO; strict NPO; Effective Now; Standing - ECG 12 lead; Standing - Void class a regional drivers to OR; Standing - Skin prep; Standing - sodium chloride 0.9% (NS) infusion - Basic Metabolic Panel; Standing - CBC with Differential; Standing - Protime INR; Standing 1) Atrial fibrillation - Ms. Bear noted shortness of breath with activity in August 2018. She was ultimately seen by cardiology and atrial fibrillation was noted. She was started o n anticoagulation initially with Eliquis but found that the medication was too expensive and was switched to warfarin. Amiodarone was then started in October 2018 and cardioversion performed in December 2018 with catholic of sinus rhythm. She did note an improvement in her symptoms with catholic of sinus rhythm but unfortunately symptoms returned about 2 t o 3 days after the cardioversion. Persistent atrial fibrillation has been noted since. We discussed treatment options for her symptomatic, persistent atrial fibrillation. We discuss ed performing subsequent cardioversion now that she has been further loaded on amiodarone. We began to discuss pulmonary vein isolation as she would likely require a more intervention al approach to maintain sinus rhythm long-term. I reviewed the risks and benefits of cardio version and she agrees to proceed in the near future. She was also given a list of the nove l oral anticoagulants so that she may inquire with her insurance provider as to the lowest c ost option. She will not make any changes in her anticoagulation regimen for now. She cont inues on amiodarone 200 mg daily in addition to atenolol 50 mg daily. She continues on warf alessio to maintain an INR between 2 and 3. Her echocardiogram performed in August 2018 demonstr ated normal left ventricular function but moderate biatrial enlargement was noted. 2) Sleep apnea - She has multiple risk factors for obstructive sleep apnea. I recommended she obtain a sleep evaluation close to her home. She is aware of the association of obstruc tive sleep apnea with atrial dysrhythmias. I recommended she start CPAP if indicated. This encounter was dictated with voice recognition software and may contain inadvertent rec ognition errors. documented in this encounter Plan of Treatment +--------+---------+ + + + | Date | Type | Specialty | Care Team | Description | +--------+---------+ + + + | 10/06/ | Office | Cardiology | Elvin Jamil | | 2019 | Visit | | MD [address] | | | | | | [facility] | | | | | | [place] | | | | | | [address] | | | | | | | | +--------+---------+ + + + documented as of this encounter Procedures + +--------+ + + + | Procedure Name | Priori | Date/Time | Associated Diagnosis | Comments | | | ty | | | | + +--------+ + + + | ECG 12 LEAD | Routin | 02/18/2019 | Persistent atrial | Results for this | | | e | 3:48 PM | fibrillation (HCC) | procedure are in the | | | | PST | | results section. | + +--------+ + + + documented in this encounter Results ECG 12 lead (02/18/2019 3:48 PM PST) + + + + + + | Component | Value | Ref Range | Performed | Pathologist | | | | | At | Signature | + + + + + + | VENTRICULAR | 69 | BPM | [facility] | | | RATE EKG | | | | | + + + + + + | ATRIAL RATE | 56 | BPM | [facility] | | + + + + + + | QRS | 100 | ms | [facility] | | | DURATION | | | | | + + + + + + | Q-T | 424 | ms | [facility] | | | INTERVAL | | | | | + + + + + + | Q-T | 454 | ms | [facility] | | | INTERVAL | | | | | | (CORRECTED) | | | | | + + + + + + | QRS AXIS | 36 | degrees | [facility] | | + + + + + + | T AXIS | 36 | degrees | [facility] | | + + + + + + | INTERPRETAT | Please refer to | | [facility] | | | ION TEXT | Providers office visit | | | | | | note for Providers | | | | | | Interpretation.Confirmed | | | | | | by [facility] [place] Read Only, | | | | | | [facility] ([id number]), | | | | | | editor managing newspaper Noe Lozano | | | | | | ([id number]) on 02/18/2019 | | | | | | 4:40:39 PM | | | | + + [...] | | | + +---------+ + + documented in this encounter Visit Diagnoses + + | Diagnosis | + + | Persistent atrial fibrillation (HCC) - Primary Atrial fibrillation | + + | Sleep apnea, unspecified type | + + documented in this encounter
--- OUTSIDE RECORDS SUMMARY | ~2019-07-17 | XMS | Encounter Summary ---
Demographics + + + | Address | [address] | | | [place] [address] | + + + | Home Phone | | + + + | Preferred Language | Unknown | + + + | Marital Status | | + + + | Moravian Affiliation | Unknown | + + + | Race | Unknown | + + + | Ethnic Group | Unknown | + + + Author + + + | Author | [facility] | | | and [place] | + + + | Organization | [facility] | | | and [place] | + + + | Address | Unknown | + + + | Phone | Unavailable | + + + Support + + + + + | Name | Relationship | Address | Phone | + + + + + | Veronica Anderson | ECON | [place] | | | | | [address] | | + + + + + | Beatrice Paulson | ECON | [address] | | | | | [place] | | | | | [address] | | + + + + + Care Team Providers + +------+ + | Care Sludge Control Attendant Name | Role | Phone | + +------+ + | Parvez Vail MD | PCP | | + +------+ + Reason for Visit Diagnostic/Screening (Routine) +--------+--------+ + + + + | Status | Reason | Specialty | Diagnoses / | Referred By | Referred To | | | | | Procedures | Contact | Contact | +--------+--------+ + + + + | Closed | | Radiology | Diagnoses | [place], | Cesar | | | | | Chest | Elvin | Cardiology | | | | | discomfort | MD Reji | Joy Nuc | | | | | Procedures | [address] | [address] | | | | | NM Nuclear | [address] | [address] | | | | | Stress Test | [address]iel [address] | [place], [place] | | | | | (Vasodilator | [facility], | [address] | | | | | ) | [place] [address] | Phone: | | | | | | Phone: | [phone] | | | | | | [phone] | Fax: | | | | | | Fax: | [phone] | | | | | | [phone] | | +--------+--------+ + + + + Encounter Details +--------+ + + + + | Date | Type | Department | Care Team | Description | +--------+ + + + + | 03/18/ | Hospital | [facility] | Elvin Jamil | | | 2020 | Encounter | CARDIOLOGY [place] | MD [address] | | | | | NUC MED [address] | [address] | | | | | [address] | [place], [place] | | | | | [place], [place] | [address] | | | | | [address] | | | | | | [phone] | | | +--------+ + + + [...] + + documented as of this encounter Medications at Time of Discharge + + + +---------+ + + | Medication | Sig | Dispensed | Refills | Start | End Date | | | | | | Date | | + + + +---------+ + + | atenolol | Take 50 mg by mouth | | 0 | 03/11/19 | | | (TENORMIN) 50 mg | Daily. | | | 14 | | | tablet | | | | | | + + + +---------+ + + | Cholecalciferol | Take 4,000 Units by | | 0 | | | | (VITAMIN D3 PO) | mouth Daily. | | | | | + + + +---------+ + + | cyanocobalamin | Take 500 mcg by | | 0 | | | | (VITAMIN B-12) 500 | mouth Daily. | | | | | | mcg tablet | | | | | | + + + +---------+ + + | Magnesium 250 MG | Take 250 mg by mouth | | 0 | 10/26/19 | | | TABS | Daily. | | | 12 | | + + + +---------+ + + | pravastatin | Take 20 mg by mouth | | 0 | | | | (PRAVACHOL) 20 mg | nightly. | | | | | | tablet | | | | | | + + + +---------+ + + | warfarin | Take 1 tablet by | | 0 | 04/01/19 | | | (COUMADIN) 5 mg | mouth Daily. - | | | 20 | | | tablet | adjust as directed | | | | | | | by coumadin clinic - | | | | | | | continue usual | | | | | | | dosing upon | | | | | | | discharge | | | | | + + + +---------+ + + | amiodarone | Take 1 tablet by | 90 | 3 | 12/24/19 | | | (PACERONE) 200 mg | mouth Daily. | tablet | | 19 | 0 | | tablet | | | | | | + + + +---------+ + + | warfarin | Take 5 mg by mouth | | 0 | | | | (COUMADIN) 5 mg | Daily. | | | | 0 | | tablet | | | | | | + + + +---------+ + + documented as of this encounter Plan of Treatment +--------+---------+ + + + | Date | Type | Specialty | Care Team | Description | +--------+---------+ + + + | 10/06/ | Office | Cardiology | Elvin Jamil | | | 2019 | Visit | | [address] | | | | | | [facility] | | | | | | [place] | | | | | | [address] | | | | | | | | +--------+---------+ + + + documented as of this encounter Procedures + +--------+ + + + | Procedure Name | Priori | Date/Time | Associated Diagnosis | Comments | | | ty | | | | + +--------+ + + + | NM NUCLEAR STRESS | Routin | 03/19/2019 | Chest discomfort | Results for this | | TEST (PHARMACOLOGIC | e | 10:27 AM | | procedure are in the | | - VASODILATOR) | | PST | | results section. | + +--------+ + + + documented in this encounter Visit Diagnoses Not on filedocumented in this encounter Administered Medications + +--------+ + +------+------+ | Medication Order | MAR | Action | Dose | Rate | Site | | | Action | Date | | | | + +--------+ + +------+------+ | technetium TC-[id number] sestamibi | Given | 03/18/19 | 36 | | | | (CARDIOLITE) injection 36 | | 20 1:52 | millicur | | | | millicurie 36 millicurie, | | PM PST | ies | | | | Intravenous, ONCE PRN, Other, | | | | | | | Starting 03/18/19 at 1352, For | | | | | | | 1 dose, Nuclear Medicine | | | | | | + +--------+ + +------+------+ +---+---+ | | | +---+---+ documented in this encounter"
--- OUTSIDE RECORDS SUMMARY | ~2019-07-17 | XMS | Encounter Summary ---
Demographics + + + | Address | [address] | | | [place] [address] | + + + | Home Phone | | + + + | Preferred Language | Unknown | + + + | Marital Status | | + + + | Lutheran Affiliation | Unknown | + + + | Race | Unknown | + + + | Ethnic Group | Unknown | + + + Author + + + | Author | [facility] | | | and [place] | + + + | Organization | [facility] | | | and [place] | + + + | Address | Unknown | + + + | Phone | Unavailable | + + + Support + + + + + | Name | Relationship | Address | Phone | + + + + + | Veronica Anderson | ECON | [place] | | | | | [address] | | + + + + + | Beatrice Paulson | ECON | [address] | | | | | [place] | | | | | [address] | | + + + + + Care Team Providers + +------+ + | Care Content Checker Name | Role | Phone | + +------+ + | Venkata Pettit MD | PCP | | + +------+ + Reason for Referral Diagnostic/Screening (Routine) +--------+--------+ + + + + | Status | Reason | Specialty | Diagnoses / | Referred By | Referred To | | | | | Procedures | Contact | Contact | +--------+--------+ + + + + | Closed | | MRI | Diagnoses | Luis, | [address] | | | | | | Wilton Alarcon DO | RICK | | | | | Osteoarthrit | [address] [place] [address] | | | | | is of spine | [address] | [address] | | | | | with | [address] | AVE | | | | | radiculopath | [address] | [place] | | | | | y, lumbar | Phone: | [phone] | | | | | region S/P | [phone] | Phone: | | | | | lumbar | Fax: | [phone] | | | | | fusion | [phone] | Fax: | | | | | Procedures | | [phone] | | | | | MRI Lumbar | | | | | | | Spine wo | | | | | | | Contrast | | | +--------+--------+ + + + + Diagnostic/Screening (Routine) +--------+--------+ + + + + | Status | Reason | Specialty | Diagnoses / | Referred By | Referred To | | | | | Procedures | Contact | Contact | +--------+--------+ + + + + | Closed | | Diagnostic | Diagnoses | Luis, | [address] [facility] | | | | Radiology | | Wilton Alarcon DO | RICK | | | | | Osteoarthrit | [address] [place] [address] | | | | | is of spine | [address] | [address] | | | | | with | [place], [place] | AVE | | | | | radiculopath | [address] | [place], [place] | | | | | y, lumbar | Phone: | [phone] | | | | | region S/P | [phone] | Phone: | | | | | lumbar | Fax: | [phone] | | | | | fusion | [phone] | Fax: | | | | | Procedures | | [phone] | | | | | CT Lumbar | | | | | | | Spine wo | | | | | | | Contrast | | | +--------+--------+ + + + + Evaluate & Treat (Routine) +--------+ + + + + + | Status | Reason | Specialty | Diagnoses / | Referred By | Referred To | | | | | Procedures | Contact | Contact | +--------+ + + + + + | Closed | Specialty | Physical | Diagnoses | Luis, Yary RODRIGUEZ | | | Services | Therapy | | Wilton Alarcon DO | RICK | | | Required | | Osteoarthrit | [address] [place] [address] | | | | | is of spine | [address] | [address] | | | | | with | [address] | AVE | | | | | radiculopath | [address] | [place] | | | | | y, lumbar | Phone: | [phone] | | | | | region S/P | [phone] | Phone: | | | | | lumbar | Fax: | [phone] | | | | | fusion | [phone] | Fax: | | | | | | | [phone] | +--------+ + + + + + Reason for Visit + + + | Reason | Comments | + + + | Follow-up | Back pain | + + + Encounter Details +--------+---------+ + + + | Date | Type | Department | Care Team | Description | +--------+---------+ + + + | 01/20/ | Office | [facility] | Wilton Smith, | Osteoarthritis of | | 2015 | Visit | NEUROSURGERY [address] | DO [address] | spine with | | | | [address] | [address] [place], [place] | radiculopathy, | | | | [place], [place] | [address] | lumbar region | | | | [address] | | (Primary Dx); S/P | | | | [phone] | | lumbar fusion | +--------+---------+ + + + Social History [...] +---------+ + | Yes | | | wine a few times a | | | | | week | + + +---------+ + + + [...] + + + | Blood Pressure | 137/65 | 01/20/2015 3:48 PM | | | | | PST | | + + + + + | Pulse | 58 | 01/20/2015 3:48 PM | | | | | PST | | + + + + + | Temperature | - | - | | + + + + + | Respiratory Rate | 16 | 01/20/2015 3:48 PM | | | | | PST | | + + + + + | Oxygen Saturation | - | - | | + + + + + | Inhaled Oxygen | - | - | | | Concentration | | | | + + + + + | Weight | 120.7 kg (266 lb) | 01/20/2015 3:48 PM | | | | | PST | | + + + + + | Height | 172.7 cm (5' 8") | 01/20/2015 3:48 PM | | | | | PST | | + + + + + | Body Mass Index | 40.45 | 01/20/2015 3:48 PM | | | | | PST | | + + + + + documented in this encounter Patient Instructions Patient Instructions Wilton Smith DO - 01/20/2015 4:13 PM PSTPlease restart physical t herapy for your back. Please undergo MRI and CT scan of the lumbar spine. Please follow-up with me after the imaging.Electronically signed by Wilton Smith DO at 1 03/23/2014 4:13 PM PST documented in this encounter Progress Notes Wilton Smith DO - 01/20/2015 4:14 PM PSTFormatting of this note might be different fro m the original. Wilton Smith DO [address] [facility], [address] [place] [address] FAX: NEUROSURGERY FOLLOW-UP CHIEF COMPLAINT: Chief Complaint Patient presents with Follow-up Back pain HISTORY OF PRESENT ILLNESS: The patient is a 74 y.o. female that had an L1-5 fusion by me for back pain, leg pain, and claudication around 2 years ago . She returns and overall is d oing fairly well. The patient complains of continued back pain and difficulty walking. She thinks the walking may be related to her bursitis. She is concerned about both issues. The patient is not still taking narcotics for pain management. The patient has been walking as directed and has tried to remain active. Overall, the patient is pleased with her improveme nt, but would like these issues addressed. PAST MEDICAL HISTORY: Past Medical History Diagnosis Date Sacroiliitis (HCC) BACK PAIN, LUMBAR Spinal stenosis Trochanteric bursitis Degenerative disc disease Obesity Hypertension Hypercholesterolemia Hx of spinal fusion Myofascial pain syndrome Paresthesia Carpal tunnel syndrome PAST SURGICAL HISTORY: Past Surgical History Procedure Laterality Date Gallbladder surgery 12/18/2001 Lumbar spinal stenosis 05/24/2009 Neck surgery 10/10/2009 Cataract surgery 10/29/2011(left eye, Right eye 01/07/12 CURRENT MEDICATIONS: Current Outpatient Prescriptions Medication Sig Dispense Refill atenolol (TENORMIN) 50 mg tablet BABY ASPIRIN PO Take 81 mg by mouth Daily. Cholecalciferol (VITAMIN D3 PO) Take 4,000 Units by mouth Daily. Magnesium 250 MG TABS Take 250 mg by mouth Daily. NAPROXEN PO Take 220 mg by mouth Daily. No current facility-administered medications for this visit. ALLERGIES: Allergies Allergen Reactions Pregabalin SOCIAL HISTORY: The patient reports that she has never smoked. She has never used smokeless tobacco. She r eports that she drinks alcohol. She reports that she does not use illicit drugs. FAMILY HISTORY: Family History Problem Relation Age of Onset Diabetes Maternal Grandmother Arthritis Mother INTERIM PHYSICAL EXAMINATION: Blood pressure 137/65, pulse 58, resp. rate 16, height 1.727 m (5' 8"), weight 120.657 kg ( 266 lb). Body mass index is 40.45 kg/(m^2). GENERAL: Kassie Bear is in no acute distress with unlabored respirations. SPINE: The patient s incisions are healing well without drainage, significant erythema, o r discharge EXTREMITIES: No lower extremity edema. NEUROLOGICAL EXAMINATION: MENTAL STATUS: The patient is awake, alert, and oriented. She follows simple and complex commands MOTOR EXAM: Motor strength is 4+/5. This is improved from the preoperative exam. SENSORY EXAM: The sensory examination improved from the preoperative exam. REFLEXES: Reflexes are unchanged from her preoperative history and physical. RADIOGRAPHIC REVIEW: The patient s postoperative x-rays show stable instrumentation and alignment and were rev iewed with the patient today. There have been interval changes since the immediate postoper ative films - improved arthrodesis. ASSESSMENT: S/P L1-5 fusion: Encounter Diagnoses Name Primary? Osteoarthritis of spine with radiculopathy, lumbar region Yes S/P lumbar fusion Past Medical History Diagnosis Date Sacroiliitis (HCC) BACK PAIN, LUMBAR Spinal stenosis Trochanteric bursitis Degenerative disc disease Obesity Hypertension Hypercholesterolemia Hx of spinal fusion Myofascial pain syndrome Paresthesia Carpal tunnel syndrome PLAN: Overall, the patient is doing fairly well. I was pleased to see at least some further impr ovement and expect more improvement with time. This was discussed with the patient today. I have increased the patient s activities further, and I would like the patient to continu e to advance with activities as tolerated and as directed. She will restart physical therapy for her back - her recent therapy had been for left knee arthroplasty recovery. I will order MRI and CT scan of the lumbar spine to assess nerve and fusion. She will follow-up with me after the imaging to review the findings and discuss further opt ions. ELECTRONICALLY SIGNED BY: Wilton Smith DO, 01/20/2015 16:17 documented in this encounter Plan of Treatment +--------+---------+ + + + | Date | Type | Specialty | Care Team | Description | +--------+---------+ + + + | 10/06/ | Office | Cardiology | Elvin Jamil | | | 2020 | Visit | | MD [address] | | | | | | Lizzie Garcia, [facility] | | | | | | [place] | | | | | | [address] | | | | | | | | +--------+---------+ + + + + +---------+--------+ + + | Name | Type | Priori | Associated Diagnoses | Order Schedule | | | | ty | | | + +---------+--------+ + + | CT Lumbar Spine wo | Imaging | Routin | Osteoarthritis Of | Expected: 01/20/2015 | | Contrast | | e | Spine With | (Approximate), | | | | | Radiculopathy, | Expires: 01/21/2016 | | | | | Lumbar Region S/P | | | | | | lumbar fusion | | + +---------+--------+ + + | MRI Lumbar Spine wo | Imaging | Routin | Osteoarthritis Of | Expected: 01/20/2015 | | Contrast | | e | Spine With | (Approximate), | | | | | Radiculopathy, | Expires: 01/21/2016 | | | | | Lumbar Region S/P | | | | | | lumbar fusion | | + +---------+--------+ + + + + +--------+ + + | Name | Type | Priori | Associated Diagnoses | Order Schedule | | | | ty | | | + + +--------+ + + | Ambulatory referral | Outpatient | Routin | Osteoarthritis Of | 1 Occurrences | | to Physical Therapy | Referral | e | Spine With | starting 01/20/2015 | | | | | Radiculopathy, | until 01/20/2016 | | | | | Lumbar Region S/P | | | | | | lumbar fusion | | + + +--------+ + + documented as of this encounter Visit Diagnoses + + | Diagnosis | + + | Osteoarthritis of spine with radiculopathy, lumbar region - Primary | + + | S/P lumbar fusion Arthrodesis status | + + documented in this encounter
--- OUTSIDE RECORDS SUMMARY | ~2019-07-17 | XMS | Encounter Summary ---
Demographics + + + | Address | [address] | | | [place] [address] | + + + | Home Phone | | + + + | Preferred Language | Unknown | + + + | Marital Status | Single | + + + | Zoroastrian Affiliation | Unknown | + + + | Race | White | + + + | Ethnic Group | Not or | + + + Author + + + | Author | [facility] | + + + | Organization | [facility] | + + + | Address | Unknown | + + + | Phone | Unavailable | + + + Support + + +---------+ + | Name | Relationship | Address | Phone | + + +---------+ + | Beatrice Paulson | ECON | Unknown | | + + +---------+ + Care Team Providers + +------+ + | Care Wire Dropper Name | Role | Phone | + +------+ + | Venkata Pettit MD | PCP | | + +------+ + Reason for Visit Diagnostic Testing (Routine) +--------+--------+ + + + + | Status | Reason | Specialty | Diagnoses / | Referred By | Referred To | | | | | Procedures | Contact | Contact | +--------+--------+ + + + + | Closed | | Clinical | Diagnoses | [place], | [facility] | | | | Neurophysiolo | Myalgia | Hyacinth Alarcon, | [address] [address] | | | | gy | Procedures | ,[facility] [address] | | | | | AUTONOMIC | [address] | Mailcode: | | | | | REFLEX | [place], | [address] | | | | | TESTING,ADUL | [place] | [facility] | | | | | T - | [address] | and Healing, | | | | | NEUROLOGY | Phone: | [address], | | | | | | [phone] | 8th Floor | | | | | | Fax: | [place], [place] | | | | | | [phone] | [address] | | | | | | | Phone: | | | | | | | [phone] | | | | | | | Fax: | | | | | | | [phone] | +--------+--------+ + + + + Encounter Details +--------+ + + + + | Date | Type | Department | Care Team | Description | +--------+ + + + + | 11/07/ | Hospital | Neurophysiology | Marian Robert, | | | 2012 | Encounter | [facility] at [facility] [address] | ,PhD [place], | | | | | [address] | [place] [address] | | | | | [facility] | [address] | | | | | [place], 10th Floor | [place], [place] | | | | | [place], [place] | [address] [address] | | | | | [address] | Zoraida [place], | | | | | [phone] | [place] [address] | | | | | | [phone] | | +--------+ + + + + [...] Comments | + + +---------+ + | Not Asked | | | | + + +---------+ + + + [...] + + + +---------+ + + | aspirin EC 81 mg | Take 81 mg by mouth | | 0 | | | | Oral tablet,delayed | once daily. | | | | | | release (DR/EC) | | | | | | + + + +---------+ + + | CALCIUM | Take 2,000 Units by | | 0 | | | | CARBONATE/VITAMIN D3 | mouth once daily. | | | | | | (VITAMIN D-3 ORAL) | | | | | | + + + +---------+ + + | carvedilol 12.5 mg | Take 12.5 mg by | | 0 | | | | Oral tablet | mouth two times | | | | | | | daily. Administer | | | | | | | with food. | | | | | + + + +---------+ + + | gabapentin 300 mg | Take 1 capsule by | 90 | 6 | 10/09/19 | | | Oral | mouth three times | capsule | | 13 | | | capsuleIndications: | daily. Indications: | | | | | | neuropathic pain | Neuropathic Pain | | | | | + + + +---------+ + + | Magnesium 250 mg | Take by mouth. | | 0 | | | | Oral tablet | | | | | | + + + +---------+ + + | naproxen sodium | Take 220 mg by mouth | | 0 | | | | 220 mg Oral tablet | two times daily. | | | | | + + + +---------+ + + documented as of this encounter Plan of Treatment Not on filedocumented as of this encounter Procedures + +--------+ + + + | Procedure Name | Priori | Date/Time | Associated Diagnosis | Comments | | | ty | | | | + +--------+ + + + | ORDERS OTHER | | 11/07/2012 | | Results for this | | | | 12:00 AM | | procedure are in the | | | | PDT | | results section. | + +--------+ + + + | EMG/NERVE CONDUCTION | | 11/07/2012 | | Results for this | | STUDIES,ADULT - | | 12:00 AM | | procedure are in the | | NEUROLOGY | | PDT | | results section. | + +--------+ + + + documented in this encounter Results ORDERS OTHER (11/07/2012 12:00 AM PDT) + + + | Narrative | Performed At | + + + | | | | | | + + + + + | Procedure Note | + + | Other, Faculty - 01/05/2013 10:11 AM PST | + + EMG/NERVE CONDUCTION STUDIES,ADULT - NEUROLOGY (11/07/2012 12:00 AM PDT) + + + | Narrative | Performed At | + + + | | | | | | + + + + + | Procedure Note | + + | Graham Villarreal - 01/05/2013 10:09 AM PST | + + documented in this encounter Visit Diagnoses + + | Diagnosis | + + | Myalgia - Primary Mylagia and myositis, unspecified | + + documented in this encounter"
--- OUTSIDE RECORDS SUMMARY | ~2019-07-17 | XMS | Encounter Summary ---
Demographics + + + | Address | [address] | | | [place] [address] | + + + | Home Phone | | + + + | Preferred Language | Unknown | + + + | Marital Status | | + + + | Scientologist Affiliation | Unknown | + + + | Race | Unknown | + + + | Ethnic Group | Unknown | + + + Author + + + | Author | [facility] | | | and [place] | + + + | Organization | [facility] | | | and [place] | + + + | Address | Unknown | + + + | Phone | Unavailable | + + + Support + + + + + | Name | Relationship | Address | Phone | + + + + + | Veronica Anderson | ECON | [place] | | | | | [address] | | + + + + + | Beatrice Paulson | ECON | [address] | | | | | [place] | | | | | [address] | | + + + + + Care Team Providers + +------+ + | Care Data Warehousing Specialist Name | Role | Phone | + +------+ + | Parvez Vail MD | PCP | | + +------+ + Reason for Visit Auth/Cert +--------+--------+ + + + + | Status | Reason | Specialty | Diagnoses / | Referred By | Referred To | | | | | Procedures | Contact | Contact | +--------+--------+ + + + + | | | | Diagnoses | | | | | | | Acute blood | | | | | | | loss anemia | | | | | | | Bleeding | | | | | | | Pseudoaneury | | | | | | | sm ([facility]) | | | | | | | Essential | | | | | | | hypertension | | | | | | | Chronic | | | | | | | atrial | | | | | | | fibrillation | | | | | | | (HCC) | | | | | | | Decreased | | | | | | | hemoglobin | | | | | | | Pseudoaneury | | | | | | | sm following | | | | | | | procedure | | | | | | | (HCC) | | | | | | | Hematoma of | | | | | | | left thigh, | | | | | | | initial | | | | | | | encounter | | | | | | | | | | | | | | | | | +--------+--------+ + + + + Encounter Details +--------+ + + + + | Date | Type | Department | Care Team | Description | +--------+ + + + + | 04/07/ | Anesthesia | [facility] | Mj, | | | 2019 | Event | CENTER CV INTRA OP | DO Ebenezer [address] | | | | | [address] | [address] | | | | | [place], [place] | [place] [address] | | | | | [address] | [phone] | | | | | [phone] | | | +--------+ + + + + Anesthesia Record + + + + + | Procedure Name | Responsible | Anesthesia Start | Anesthesia Stop Time | | | Anesthesiologist | Time | | + + + + + | CV EP CARDIOVERSION | Ebenezer Barker, | 04/07/19 1044 | 04/07/19 1051 | | (N/A ) | DO | | | + + + + + +----+---+ + + | Da | T | Event | Comment | | te | i | | | | | m | | | | | e | | | +----+---+ + + | 02 | 1 | First | | | /2 | 0 | Inc/Proc St | | | 5/ | 4 | | | | 20 | 2 | | | | 20 | | | | +----+---+ + + | | 1 | | | | | 0 | | | | | 4 | | | | | 3 | | | +----+---+ + + | | 1 | Anesthesia | | | | 0 | Ready | | | | 4 | | | | | 3 | | | +----+---+ + + | | 1 | An Start | Reassessment prior to anesthesia induction/procedure. | | | 0 | | | | | 4 | | | | | 4 | | | +----+---+ + + | | 1 | Quick Note | Cardioversion x 1 @ 200 joules | | | 0 | | | | | 4 | | | | | 6 | | | +----+---+ + + | | 1 | An Stop | Patient handed off to recovery nurse. | | | 5 | | | | | 1 | | | +----+---+ + + +------+ | Meds | +------+ + +--------+ | Name | Total | + +--------+ | lidocaine 2% | 100 mg | + +--------+ | propofol | 80 mg | + +--------+ | ondansetron | 8 mg | + +--------+ | NS (Infusion) | 100 mL | + +--------+ + + | No agents on file. | + + + + | No blood administrations on file. | + + +--------+ + + + | Type | Details | Placement | Removal | +--------+ + + + | Wound | 04/04/18; 0800; N; Incision (ELSA | 04/04/18 08 by | | | | drain site); Left; upper, medial; | Dasia Martinez, | | | | thigh | RN | | +--------+ + + + | Wound | 04/04/19; 1039; Incision; groin | 04/04/19 1039 by | | | | | Yamilka Elizondo | | | | | FRANCESCO Carter | | +--------+ + + + | Drain/ | 04/04/19; 0959; #1; Left; groin; | 04/04/19 0959 by | 04/07/19 2030 by | | Device | gravity; 10mm ELSA with 100 ml | Yamilka Elizondo | Dasia Martinez, | | Site | suction evacuator; other (see | Schoengarth, RN | RN | | | comments) (per orders by DO | | | | | ELSA Mullen removed); 04/07/19; | | | | | 2030 | | | +--------+ + + + | Periph | 04/04/19; 1000; Right; Anterior | 04/04/19 1000 by | 04/08/19 1225 by | | eral | (palmar), Proximal; Forearm; | Josse Landeros | Barbara Dewey RN | | IV | [id number]-[id number] catheter system; | Tigre Hinton RN | | | | 20 gauge; 04/08/19; 1225 | | | +--------+ + + + | Drain/ | 04/04/19; 1038; #1; Left; groin; | 04/04/19 1038 by | 04/08/19 1500 by | | Device | other (see comments) (wound vac); | Yamilka Elizondo | Camila Del Real RN | | Site | (had been removed prior to my | FRANCESCO Carter | | | | arrival.); removed in past; | | | | | 04/08/19; 1500 | | | +--------+ + + + | Periph | 04/04/19; 2300; Right; Forearm; | 04/04/19 2300 by | 04/10/19 1100 by | | eral | [id number] catheter system; | Josse Landeros | Val Webb, | | IV | 22 gauge; no longer indicated; | Tigre Hinton RN | RN | | | short term use; 04/10/19; 1100 | | | +--------+ + + + | Urethr | 04/05/19; 1800; indicated for | 04/05/19 1800 by | 04/09/19 1107 by | | al | acute urinary | Josse Landeros | Franky Ruiz RN | | Cathet | retention/obstruction; Second | Tigre Hinton RN | | | er | person present, Perineum cleaned; | | | | | All elements; urethral catheter | | | | | removed, tubing intact; 04/09/19; | | | | | 1107 | | | +--------+ + + + documented in this encounter Social History + +-------+ +--------+------+ | Tobacco [...] | | | | | [facility] | | | | | [place] | | | | | | [address] | | | | | | | | +--------+---------+ + + + documented as of this encounter Visit Diagnoses Not on filedocumented in this encounter Administered Medications + +--------+ +--------+------+------+ | Medication Order | MAR | Action | Dose | Rate | Site | | | Action | Date | | | | + +--------+ +--------+------+------+ | lidocaine (PF) 2% injection | Given | 04/07/19 | 100 mg | | | | Intravenous, PRN, Starting Tue | | 20 10:44 | | | | | 04/07/19 at 1044, Anesthesia | | AM PST | | | | | Intra-op | | | | | | + +--------+ +--------+------+------+ +---+---+ | | | +---+---+ + +-------+ +------+---+---+ | ondansetron (ZOFRAN) injection | Given | 04/07/19 | 8 mg | | | | Intravenous, PRN, Starting Tue | | 20 10:46 | | | | | 04/07/19 at 1046, Anesthesia | | AM PST | | | | | Intra-op | | | | | | + +-------+ +------+---+---+ +---+---+ | | | +---+---+ + +-------+ +-------+---+---+ | propofol (DIPRIVAN) injection | Given | 04/07/19 | 80 mg | | | | Intravenous, PRN, Starting Tue | | 20 10:44 | | | | | 04/07/19 at 1044, Anesthesia | | AM PST | | | | | Intra-op | | | | | | + +-------+ +-------+---+---+ +---+---+ | | | +---+---+ + +---------+ +---+---+---+ | sodium chloride 0.9% (NS) | New Bag | 04/07/19 | | | | | infusion Intravenous, CONTINUOUS | | 20 10:33 | | | | | PRN, Starting 04/07/19 at | | AM PST | | | | | 1033, Anesthesia Intra-op | | | | | | + +---------+ +---+---+---+ +---+---+ | | | +---+---+ documented in this encounter"
--- OUTSIDE RECORDS SUMMARY | ~2019-07-17 | XMS | Encounter Summary ---
Demographics + + + | Address | [address] | | | [place] [address] | + + + | Home Phone | | + + + | Preferred Language | Unknown | + + + | Marital Status | | + + + | Mandaeism Affiliation | Unknown | + + + | Race | Unknown | + + + | Ethnic Group | Unknown | + + + Author + + + | Author | [facility] | | | and [place] | + + + | Organization | [facility] | | | and [place] | + + + | Address | Unknown | + + + | Phone | Unavailable | + + + Support + + + + + | Name | Relationship | Address | Phone | + + + + + | Veronica Anderson | ECON | [place] | | | | | [phone] | | + + + + + | Beatrice Paulson | ECON | [address] | | | | | [place] | | | | | [address] | | + + + + + Care Team Providers + +------+ + | Care Mining Helper Name | Role | Phone | + +------+ + | Parvez Vail MD | PCP | | + +------+ + Reason for Visit + + + | Reason | Comments | + + + | Neck Pain | Left sided neck/shoulder pain | + + + | Numbness | tingling left shoulder | + + + Encounter Details +--------+---------+ + + + | Date | Type | Department | Care Team | Description | +--------+---------+ + + + | 04/30/ | Office | [facility] | Olayinka Rothman | Cervical | | 2019 | Visit | PHYSIATRY [address] | MD [place]la [address] | radiculopathy | | | | [address] | [address] [place] | (Primary Dx); | | | | [place] | [id number] | Chronic neck pain; | | | | [address] | | S/P cervical spinal | | | | [phone] | | fusion; Myofascial | | | | | | pain syndrome, | | | | | | cervical; Chronic | | | | | | bilateral low back | | | | | | pain without | | | | | | sciatica; S/P lumbar | | | | | | fusion | +--------+---------+ + + + Social [...] + + + | Blood Pressure | 116/63 | 04/30/2018 10:39 AM | | | | | PDT | | + + + + + | Pulse | 80 | 04/30/2018 10:39 AM | | | | | PDT | [...] + + + + | Weight | 126.1 kg (278 lb) | 04/30/2018 10:39 AM | | | | | PDT | | + + + + + | Height | 172.7 cm (5' 8") | 04/30/2018 10:39 AM | | | | | PDT | | + + + + + | Body Mass Index | 42.27 | 04/30/2018 10:39 AM | | | | | PDT | | + + + + + documented in this encounter Progress Notes Olayinka Rothman MD - 04/30/2018 10:30 AM PDT CHIEF COMPLAINT: Chief Complaint Patient presents with Neck Pain Left sided neck/shoulder pain Numbness tingling left shoulder HISTORY OF PRESENT ILLNESS: The patient is a 77 y.o. female being seen today in follow up for complaints chronic left sided neck pain radiating into the left shoulder and upper arm. The patient was referred to physical therapy at the time of her last appointment and she is still participating in that once a week. She reports physical therapy has significantly imp roved her symptoms but she has reached a plateau and cannot seem to get additional improveme nt. It was suggested by her PT that she follow-up with me to discuss getting another CILESI as this has helped significantly in the past. The patient has prior history of cervical spine fusion for myelopathy. The patient also rep orts sensitivity to touch throughout her body. The patient has been doing her home exercise program since the last time she was here, reporting that she was taught some stretches that she has been doing everyday. Her symptoms worsen with leaning with her chin jutted forward and her neck extended. She al so states sitting up such as when driving causes pain in her neck. Her symptoms improve when she tucks her chin in towards her body and pulls her head back. S he also reports significant improvement in her symptoms with the prior cervical injections ( C7-T1 IL ADE left of midline). The patient does not describe numbness in the arm or hands but does have some numbness in t he shoulder region on the left. She does not report weakness. She has tried PT and NSAIDS. Prior cervical spinal fusion performed by Dr. Justen Banerjee do on 10/10/2009. The patient had the prior C7-T1 ILESI left of midline on two occasions as m entioned above. The patient continues to do home stretches and well as see her physical chemist apist periodically but not for quite some time. The patient reports a separate complaint of pain in the lower back. She has had issues wit h the back for years and has had a prior lumbar fusion but this seems to be a new pain that began suddenly approximately 10 days ago with a twisting or reaching. The pain is primarily just on one side and more lateral in the flank region. She has been applying ice to the are a which does seem to help. Patient's medications, allergies, past medical, surgical, social and family histories were reviewed and updated as appropriate. CURRENT MEDICATIONS: Current Outpatient Prescriptions Medication Sig Dispense Refill atenolol (TENORMIN) 50 mg tablet Cholecalciferol (VITAMIN D3 PO) Take 4,000 Units by mouth Daily. cyanocobalamin (VITAMIN B-12) 500 mcg tablet Take 500 mcg by mouth Daily. Magnesium 250 MG TABS Take 250 mg by mouth Daily. NAPROXEN PO Take 220 mg by mouth Daily. Patient taking 2 tablets daily. pravastatin (PRAVACHOL) 20 mg tablet Take 20 mg by mouth nightly. SHINGRIX 50 MCG/0.5ML vaccine injection Inject 1 Application as directed once. No current facility-administered medications for this visit. ALLERGIES: Allergies Allergen Reactions Pregabalin REVIEW OF SYSTEMS: The patient reported no recent illnesses, no falls, no balance or coordination difficulty. She also denies stomach pain, bowel and bladder dysfunction, headaches, dizziness or any ot her major changes in her health recently. PHYSICAL EXAMINATION: Blood pressure 116/63, pulse 80, height 1.727 m (5' 8"), weight 126.1 kg (278 lb). Body mas s index is 42.27 kg/m. GENERAL: The patient is well developed and well nourished. She does not appear uncomfortab le when seated. HEENT: HEAD/FACE: EYES: Normocephalic and atraumatic. There are no areas of recent trauma. Normal sclerae without icterus. SKIN Limited skin exam shows no significant rashes or lesions. There are scars in the cerv ical region. CHEST: The patient is in no acute respiratory distress with unlabored respirations. ABDOMEN: The patient is overweight. NEUROLOGIC: The patient is awake, alert, and oriented to time, place, person. She follows simple and complex commands. Her speech is fluent. She comprehends speech well. She has no apparent deficits with short or mcfp memory. She has appropriate fund of knowledge Cranial nerves 2-12 appear grossly intact. Sensory exam does not show diminished sensation to light touch in the upper and lower extre mities. REFLEX: RIGHT LEFT BICEPS 2+ 2+ BRACHIORADIALIS 2+ 2+ TRICEPS 2+ 2+ PATELLAR 2+ 2+ ACHILLES 2+ 2+ CUMMINS'S Negative Negative PLANTAR Downgoing Downgoing MUSCULOSKELETAL There is no major palpable deformity of the spine. Range of motion testing of the cervical spine was reduced with rotation to the left. She hogan d increased pain with lateral bending to the right. When she leans to the right she has pain on the left as well. Spurling sign was negative. Shoulder examination shows well preserved range of motion with external rotation, internal rotation and abduction. Impingement testing was negative. There was no tenderness over th e bicipital groove or over the AC joint. Speed's test was negative. Empty can test was nega tive. Strength testing, including strength testing of the infraspinatus, supraspinatus and subsca pularis, in bilateral upper extremities showed 5/5 strength with no focal weakness. Increase d muscle tone in the bilateral trapezius and leviator scapula. RADIOGRAPHIC REVIEW: The patient's imaging was reviewed in detail with the patient today during the visit. The MRI of the cervical spine from 12/14/2015 shows the prior cervical fusion at C5-C6. There is also DDD at other levels resulting in various degrees of central canal and foraminal stenos is range up to moderately severe, primarily on the left, including at the prior operative le aaron, C5-C6 and at the adjacent levels. ASSESSMENT: Encounter Diagnoses Name Primary? Cervical radiculopathy Yes Chronic neck pain S/P cervical spinal fusion Myofascial pain syndrome, cervical Chronic bilateral low back pain without sciatica S/P lumbar fusion PLAN: 1) Today we discussed the patient's differential diagnosis with the likely primary issue be ing cervical radiculitis on the left due to impingement of the exiting nerve roots. I advis ed her that because she has had good relief from prior injections I would recommend a repeat C7-T1 ILESI left of midline. The patient was in agreement with repeat the injection as the next step. This will be performed by me in the near future. 2) I encouraged the patient to continue working with J [facility] Gauthier PT especially if she fee ls like she continues to get good relief with his treatments. The patient reports that she m ay take a break from PT to get the injection and then once feeling better get back into PT. 3) In regards to the pain in the lower back I advised her that it does appear at this time that the pain is likely related to a muscle strain as it started acutely and is more latera l rather than right over the spine. I informed her that because its only been 10 days we can just wait to see if it resolves on its own or continues to be a big issue for her. I infor med her that if the disc above her fusion had been injured or if there was a hardware issue it would be more likely to cause pain at the midline, and that is not where she is localizin g the pain. 4) Medications were discussed with the patient today. She reports that she is currently belem ing Naproxen two tablets daily which I advised her can be taken short term if she feels like it is helping. I informed her that she should not take this along with ibuprofen, if she fe els like the ibuprofen is more helpful I am ok with her taking up to 800 mg of ibuprofen thr ee times a day. I advised her to watch for potential side effects including stomach upset or dark/bloody stools. I, Dr. Olayinka Rothman, personally performed the services described in this documentatio n, as scribed by SHAHBAZ Snider in my presence, and it is both accurate and complete. ELECTRONICALLY EDITED AND SIGNED BY: Olayinka Rothman MD documented in this encounter Plan of Treatment +--------+---------+ + + + | Date | Type | Specialty | Care Team | Description | +--------+---------+ + + + | 10/06/ | Office | Cardiology | Elvin Jamil | | | 2019 | Visit | | [address] | | | | | | [facility] | | | | | | [place] | | | | | | [id number] | | | | | | | | +--------+---------+ + + + documented as of this encounter Results FL ADE Cervical Thoracic Interlaminar (05/07/2018 5:20 PM PDT) + + | Specimen | + + | | + + + + + | Narrative | Performed At | + + + | | [facility] | | 05/07/2018CERVICAL INTERLAMINAR EPIDURAL STEROID INJECTION CLINICAL | | | HISTORY: ICD-10 CODE M54.12 CERVICAL RADICULOPATHY Kassie Cummins | | | presents to the fluoroscopy suite for a fluoroscopically-guided C7-T1 | | | interlaminar epidural steroid injection, left of midline, as part of | | | conservative management for chronic pain with cervical radiculopathy | | | and degenerative disc disease. After informed consent was obtained, | | | the patient lay in the prone position on the fluoroscopy table. The | | | area was identified under fluoroscopic guidance. The area was prepped | | | and draped in sterile fashion. A 25-gauge, 1.5-inch needle was | | | inserted into this region and approximately 3 mL of buffered 1% | | | lidocaine was infused. Then a 22-gauge epidural needle was advanced | | | into the epidural space at the C7-T1 level. Confirmation into the | | | epidural space was obtained with loss of resistance, as well as | | | infusion of approximately 1 mL of Omnipaque contrast which showed | | | epidural flow. Then, a combination of 3 mL of normal saline and 1 mL | | | of 10 mg/mL dexamethasone was infused. The patient tolerated the | | | procedure well without complications. Pre- and post-procedure blood | | | pressures were stable. The patient was given verbal as well as written | | | followup instructions. Prior to the start of the procedure, the | | | following were performed and verified, including correct patient | | | identity, correct site/side marked and visible, agreement on the | | | procedure to be done, correct patient positioning and an accurate | | | procedure consent form. Any safety precautions based on clinical | | | history and/or medication use have been addressed. I personally | | | performed the procedure above. Estimated blood loss: | | | MinimalComplications: NoneFindings: As expectedAnesthesia: Local | | | 1% Lidocaine | | |I personally performed the procedure above. | | | | | |Estimated blood loss: Minimal | | |Complications: None | | |Findings: As expected | | |Anesthesia: Local 1% Lidocaine | | | | | | | | + + + + +---------+ + + | Performing | Address | City/State/Zipcode | Phone Number | | Organization | | | | + +---------+ + + | [facility] | | | | + +---------+ + + documented in this encounter Visit Diagnoses + + | Diagnosis | + + | Cervical radiculopathy - Primary Brachial neuritis or radiculitis nos | + + | Chronic neck pain Cervicalgia | + + | S/P cervical spinal fusion Arthrodesis status | + + | Myofascial pain syndrome, cervical Mylagia and myositis, unspecified | + + | Chronic bilateral low back pain without sciatica | + + | S/P lumbar fusion Arthrodesis status | + + documented in this encounter
--- OUTSIDE RECORDS SUMMARY | ~2019-07-17 | XMS | Encounter Summary ---
Demographics + + + | Address | [address] | | | [place] [address] | + + + | Home Phone | | + + + | Preferred Language | Unknown | + + + | Marital Status | | + + + | Alevism Affiliation | Unknown | + + + [...] [place] | | | | | [phone] | | + + + + + | Beatrice Paulson | ECON | [address] | | | | | [place] | | | | | [address] | | + + + + + Care Team Providers + +------+ + | Care Clinical Pharmacy Specialist Name | Role | Phone | + +------+ + | Parvez Vail MD | PCP | | + +------+ + Reason for Visit + + + | Reason | Comments | + + + | Follow-up | | + + + Encounter Details +--------+---------+ + + + | Date | Type | Department | Care Team | Description | +--------+---------+ + + + | 04/28/ | Office | [facility] EP | Tyrel Orellana | Paroxysmal atrial | | 2020 | Visit | [facility]ARDIOLOGY [place] | [address] | fibrillation (HCC) | | | | [address] | [facility] | ([facility]x); Sleep | | | | [facility] [place] | [place] | apnea, unspecified | | | | [address] | [address] | type | | | | [phone] | | | +--------+---------+ + + + [...] + + + | Blood Pressure | 138/70 | 04/29/2019 1:04 PM | | | | | PDT | | + + + + + | Pulse | 69 | 04/29/2019 1:04 PM | | | | | PDT | | + + + + + | Temperature | - | - | | + + + + + | Respiratory Rate | - | - | | + + + + + | Oxygen Saturation | 99% | 04/29/2019 1:04 PM | | | | | PDT | | + + + + + | Inhaled Oxygen | - | - | | | Concentration | | | | + + + + + | Weight | 131.5 kg (290 lb) | 04/29/2019 1:04 PM | | | | | PDT | | + + + + + | Height | 172.7 cm (5' 8") | 04/29/2019 1:04 PM | | | | | PDT | | + + + + + | Body Mass Index | 44.09 | 04/29/2019 1:04 PM | | | | | PDT | | + + + + + documented in this encounter Progress Notes Tyrel Orellana MD - 04/29/2019 1:00 PM PDTFormatting of this note might be dif ferent from the original. Subjective: Referring MD: No ref. provider found Chief Complaint Patient presents with Follow-up HPI: This is a 78 y.o. female who presents today for follow-up of atrial fibrillation. Sin ce her last visit Ms. Bear underwent pulmonary vein isolation via cryoablation with right -sided flutter ablation. Several days following the procedure she noted swelling of her lef t leg and a hematoma was noted in the left upper leg. Given her large body habitus it was d ifficult to determine the amount of bleeding and she underwent exploration of the site by va scular surgery with drainage of the hematoma and placement of a wound VAC. She was then dis charged to a rehab facility. She reports she was discharged from rehab in [place] earlier to day and is planning to return home. The wound VAC was removed and she is continuing with wo und care with home nursing. She denies any current chest pain, shortness of breath, dizzine ss, lightheadedness, palpitations, or recent syncope. She continues on anticoagulation with warfarin. Past Medical History: Diagnosis Date Arthralgia Atrial fibrillation (HCC) Dx 08/29 - AC - amio - CVN 12/30 and 03/02 - s/p cryo PVI/CTI RFA 04/02 BACK PAIN, LUMBAR Carpal tunnel syndrome Chronic bilateral low back pain without sciatica 07/20/2015 Degenerative disc disease Facet arthritis of lumbar region 05/02/2015 Hx of spinal fusion Hypercholesterolemia Hypertension Myofascial pain syndrome Neuromyopathy (HCC) Obesity Other chronic pain Paresthesia Pes anserine bursitis-left 06/25/2017 Sacroiliitis (HCC) Spinal stenosis Trochanteric bursitis Past Surgical History: Procedure Laterality Date ABLATION OF DYSRHYTHMIC FOCUS N/A 03/31/2019 Procedure: CV EP ABLATION AF; Surgeon: Tyrel Orellana MD; Location: [facility] [place] EP LA B ARTERY SURGERY Left 04/04/2019 Procedure: ENDARTERECTOMY FEMORAL Will need arteriogram in IR initially under moderate se dation and if not amenable to stenting then will need left groin cut down.; Surgeon: Elizabeth Mullen DO; Location: [facility] [place] MAIN OR CARDIOVERSION N/A 12/22/2018 Procedure: CV EP CARDIOVERSION; Surgeon: Lori Recinos DO; Location: [facility] [place] CV LAB CARDIOVERSION N/A 02/20/2019 Procedure: CV EP CARDIOVERSION; Surgeon: Tyrel Orellana MD; Location: [facility] [place] CV LAB CARDIOVERSION N/A 04/07/2019 Procedure: CV EP CARDIOVERSION; Surgeon: Tyrel Orellana MD; Location: [facility] [place] CV LAB Cataract Surgery 10/29/2011(left eye, Right [...] jawline) removed Left 08/25/14 Performed by Rufina Bach, SUPERVISOR WHIPPED TOPPING for Dr. Shah, [place] TOTAL KNEE ARTHROPLASTY Left 06/28/[address] Will at [facility] TOTAL KNEE ARTHROPLASTY TRANSTHORACIC ECHOCARDIOGRAM 08/2018 EF [...] TABS Take 250 mg by mouth Daily. oxyCODONE (ROXICODONE) 5 mg tablet Take 1-2 tablets by mouth every 6 hours as needed fo r Pain. 30 tablet 0 pravastatin (PRAVACHOL) 20 mg tablet Take 20 mg by mouth nightly. warfarin (COUMADIN) 5 mg tablet Take 1 tablet by mouth Daily. - adjust as directed by [facility] - continue usual dosing upon discharge No current facility-administered medications for this visit. Allergies Allergen Reactions Lyrica [Pregabalin] Other (See Comments) INTOLERANCE- CONSTIPATION, AND DIDN'T LIKE HOW IT MADE HER FEEL. Objective: Vitals: 04/29/19 1304 BP: 138/70 Pulse: 69 Weight: 131.5 kg (290 lb) Height: 1.727 m (5' 8") Body mass index is 44.09 kg/m. Exam: General: Patient is alert, pleasant, [...] extremities bilateral ly. Review of studies: ECG: Normal sinus rhythm at 68 bpm, first-degree AV block, no significant change from 2019 Impression/Plan: Kassie was seen today for follow-up. Diagnoses and all orders for this visit: Paroxysmal atrial fibrillation (HCC) - ECG 12 lead Sleep apnea, unspecified type 1) Atrial fibrillation - Ms. Arzateoted shortness of breath with activity in August 2018. She was ultimately seen by cardiology and atrial fibrillation was noted. She was starte d on anticoagulation initially with Eliquis but found that the medication was too expensive and was switched to warfarin. Amiodarone was then started in October 2018 and cardiovers ion performed in December 2018 with buddhist of sinus rhythm. She did note an improveme nt in her symptoms with buddhist of sinus rhythm but unfortunately symptoms returned abou t 2 to 3 days after the cardioversion. Persistent atrial fibrillation has been noted since . She elected to undergo cardioversion after further amiodarone loading and sinus rhythm wa s restored recently. Unfortunately atrial fibrillation recurred and she continued with symp toms. She elected to proceed with pulmonary vein isolation which was performed via cryoabla tion in March 2019. Right-sided flutter ablation was done at the time of the procedure. She was then admitted subsequently for a left groin hematoma which required evacuation and drainage. She continues in sinus rhythm on examination today. She will continue on amiodar one 200 mg daily in addition to atenolol 50 mg daily. She continues on anticoagulation with warfarin to maintain an INR between 2 and 3. If she is able to maintain sinus rhythm with no recurrent dysrhythmias after another 2 months we will consider stopping amiodarone with c lose follow-up. Her echocardiogram performed in August 2018 demonstrated normal left ventricul ar function but moderate biatrial enlargement was noted. 2) Sleep apnea - Shehas multiple risk factors for obstructive sleep apnea. I again mirian mmterrenceshe obtain a sleep evaluation close to her home. She is aware of the association of obstructive sleep apnea with atrial dysrhythmias. I recommended she start CPAP if indic ated. This encounter was dictated with voice recognition software and may contain inadvertent rec ognition errors. documented in this encounter Plan of Treatment +--------+---------+ + + + | Date | Type | Specialty | Care Team | Description | +--------+---------+ + + + | 10/06/ Office | Cardiology | Tyrel Orellana | | | 2019 | Visit | | [address] | | | | | | [facility] | | | | | | [place] | | | | | | [address] | | | | | | | [...] in this encounter Results ECG 12 lead (04/29/2019 1:09 PM PDT) + + + + + + | Component | Value | Ref Range | Performed | Pathologist | | | | | At | Signature | + + + + + + | VENTRICULAR | 68 | BPM | [facility] | | | RATE EKG | | | | | + + + + + + | ATRIAL RATE | 68 | BPM | [facility] | | + + + + + + | P-R | 222 | ms | [facility] | | | INTERVAL | | | | | + + + + + + | QRS | 100 | ms | [facility] | | | DURATION | | | | | + + + + + + | Q-T | 446 | ms | [facility] | | | INTERVAL | | | | | + + + + + + | Q-T | 474 | ms | [facility] | | | INTERVAL | | | | | | (CORRECTED) | | | | | + + + + + + | P WAVE AXIS | 61 | degrees | [facility] | | + + + + + + | QRS AXIS | 22 | degrees | [facility] | | + + + + + + | T AXIS | 43 | degrees | [facility] | | + + + + + + | INTERPRETAT | Please refer to | | [facility] | | | ION TEXT | Providers office visit | | | | | | note for Providers | | | | | | Interpretation.Confirmed | | | | | | by TYREL ORELLANA MD | | | | | | ([id number]) on 04/29/2019 | | | | | | 4:44:54 PM | | | | + + [...] + | Diagnosis | + + | Paroxysmal atrial fibrillation (HCC) - Primary Atrial fibrillation | + + | Sleep apnea, unspecified type | + + documented in this encounter
--- OUTSIDE RECORDS SUMMARY | ~2019-07-17 | XMS | Encounter Summary ---
Demographics + + + | Address | [address] | | | [place] [address] | + + + | Home Phone | | + + + | Preferred Language | Unknown | + + + | Marital Status | | + + + | Anabaptist Affiliation | Unknown | + + + | Race | Unknown | + + + | Ethnic Group | Unknown | + + + Author + + + | Author | [facility] | | | and [place] | + + + | Organization | [facility] | | | and [place] | + + + | Address | Unknown | + + + | Phone | Unavailable | + + + Support + + + + + | Name | Relationship | Address | Phone | + + + + + | Veronica Anderson | ECON | [place] | | | | | [address] | | + + + + + | Beatrice Paulson | ECON | [address] | | | | | [place] | | | | | [address] | | + + + + + Care Team Providers + +------+ + | Care Water Softener Service Supervisor Name | Role | Phone | + [...] | Stress Test | Nathaniel Garcia | [place], [place] | | | | | (Vasodilator | [facility], | [address] | | | | | ) | [place] [address] | Phone: | | | | | | Phone: | [phone] | | | | | | [phone] | Fax: | | | | | | Fax: | [phone] | | | | | | [phone] | | +--------+--------+ + + + + Encounter Details +--------+ + + + + | Date | Type | Department | Care Team | Description | +--------+ + + + + | 03/18/ | Hospital | [facility] | Elvin Jamil | | | 2020 | Encounter | CARDIOLOGY RAMONA | MD [address] | | | | | NUC MED [address] | RejiethalNathaniel Steiner | | | | | [address] | F [place], [place] | | | | | [place], [place] | [address] | | | | | [address] | | | | | | [phone] | | | +--------+ + + + [...] [address] | | | | | | [facility] | | | | | | [place] | | | | | | [address] | | | | | | | [...]
--- OUTSIDE RECORDS SUMMARY | ~2019-07-17 | XMS | Encounter Summary ---
Demographics + + + | Address | [address] | | | [place] [address] | + + + | Home Phone | | + + + | Preferred Language | Unknown | + + + | Marital Status | | + + + | Zoroastrianism Affiliation | Unknown | + + + [...] [place] | | | | | [address] | | + + + + + | Beatrice Paulson | ECON | [address] | | | | | [place] | | | | | [address] | | + + + + + Care Team Providers + +------+ + | Care Admissions Rn Name | Role | Phone | + +------+ + | Venkata Pettit MD | PCP | | + +------+ + Encounter Details +--------+ + + + + | Date | Type | Department | Care Team | Description | +--------+ + + + + | 04/03/ | Hospital | [facility] | Jb J Carlos | | | 2012 - | Encounter | MED CTR XRAY [address] | MD [address] | | | | | Leonila Heller | [facility] [address] | | | 04/05/ | | [place] [address] | [place] [address] | | | 2012 | | [phone] | [phone] | | | | | | | | +--------+ + [...] +---------+ + + | atenolol | Take 25 mg by mouth | | 0 | 10/26/19 | | | (TENORMIN) 25 mg | Daily. | | | 12 | 3 | | tablet | | | | | | + + + +---------+ + + | diclofenac | Take 75 mg by mouth | | 0 | 10/26/19 | | | (VOLTAREN) 75 mg EC | Daily. | | | 12 | 3 | | tablet | | | | | | + + + +---------+ + + | escitalopram | Take 10 mg by mouth | | 0 | | | | (LEXAPRO) 10 mg | Daily. | | | | 3 | | tablet | | | | | | + + + +---------+ + + | Rosuvastatin | Take 5 mg by mouth | | 0 | 06/28/19 | | | Calcium (CRESTOR PO) | Daily. | | | 12 | 3 | + + + +---------+ + + documented as of this encounter Plan of Treatment +--------+---------+ + + + | Date | Type | Specialty | Care Team | Description | +--------+---------+ + + + | 10/06/ | Office | Cardiology | Elvin Jamil | | | 2019 | Visit | | MD [address] | | | | | | Lizzie Garcia [facility] | | | | | | [place] | | | | | | [address] | | | | | | | | +--------+---------+ + + + documented as of this encounter Procedures + +--------+ + + + | Procedure Name | Priori | Date/Time | Associated Diagnosis | Comments | | | ty | | | | + +--------+ + + + | CT ANGIOGRAM NECK W | Routin | 04/03/2012 | | Results for this | | CONTRAST | e | 4:54 PM | | procedure are in the | | | | PST | | results section. | + +--------+ + + + documented in this encounter Results CT Angiogram Neck w Contrast (04/03/2012 4:54 PM PST) + + | Specimen | + + | | + + + + + | Narrative | Performed At | + + + | [facility] | [place] | | Department [address] [facility] [place] | [facility] | | [ rep ct [address]] [ rep [facility] | | st zip] Signed | - IMAGING | | | | | Patient Name: KASSIE BEAR Physician: | | | CHAP.20 : 1940 Age: 71 Sex: F Unit #: [id number] | | | Exam Date: 04/03/12 Location: [facility] | | | Report #: [id number] Page: | | | %(RAD)RES..mtdd.print.filter("pg") of %(RAD) | | | RES..mtdd.print.filter("tpg") | | | | | | Accession Number: [id number] | | | CTA OF THE NECK 04/03/2012 CLINICAL HISTORY: TIA. | | | COMPARISON: Carotid Doppler dated 03/12/12. PROTOCOL: | | | CTA of the neck was obtained after 90 mL Isovue 370 with | | | reconstruction views. FINDINGS: The aortic arch is | | | patent with mild atherosclerosis. The right common carotid | | | artery is patent. The external carotid artery is patent. Mild | | | atherosclerosis is visualized at the origin of the right internal | | | carotid artery. Based on NASCET criteria, there is about 4% | | | stenosis. The remainder of the internal carotid artery is patent. | | | Visualized middle cerebral artery and anterior cerebral artery | | | branches are patent. There is moderate atherosclerosis at | | | the origin of the left common carotid artery. The left external | | | carotid artery is patent. There is moderate atherosclerosis at the | | | origin of the left internal carotid artery with about 45% stenosis | | | by NASCET criteria. The rest of the internal carotid artery is patent. | | | The branches of the middle cerebral arteries and anterior cerebral | | | arteries are patent. The right vertebral artery is patent. | | | The right posterior inferior cerebellar artery is seen. There is | | | moderate atherosclerosis of the proximal left vertebral artery. The | | | left posterior inferior cerebellar artery is not well seen likely | | | due to small size. Basilar artery is patent. Bilateral anterior | | | inferior cerebellar arteries are only faintly observed. Bilateral | | | superior cerebellar arteries and posterior cerebral arteries are | | | patent. Limited evaluation of the brain demonstrates no | | | acute findings. The patient has had bilateral cataract surgeries. | | | There is mild mucosal thickening of the bilateral maxillary sinuses. | | | The mastoids are clear. Calvarium and skull base structures are | | | normal. Nasopharynx and oropharynx are unremarkable. | | | Hardware is present in the oral cavity that limits evaluation. The | | | epiglottis, larynx, hypopharnx, trachea, and esophagus are | | | unremarkable. Parotid glands , submandibular glands, and thyroid are | | | normal. No enlarged lymph nodes are visualized involving | | | the submental region or in the bilateral neck. Bilateral | | | lung apices are unremarkable. There is hardware for | | | anterior fusion from C5 through C6. C2/3: No central canal | | | or neural foraminal canal stenosis. C3/4: A 2 mm posterior | | | disk osteophyte complex is visualized with no significant central | | | canal stenosis. Mild left neural foraminal canal stenosis is present | | | due to uncovertebral hypertrophy. C4/5: A 2 mm posterior | | | disk osteophyte complex is present with no significant central canal | | | stenosis. Mild bilateral neural foraminal canal stenoses are present | | | due to uncovertebral hypertrophy. C5/6: A 2 mm posterior | | | disk osteophyte complex is present with no significant central canal | | | stenosis. Mild left neural foraminal canal stenosis is present due | | | to uncovertebral hypertrophy. C6/7: A 2 mm posterior disk | | | osteophyte complex is present with no significant central canal | | | stenosis. Mild right and moderate left neural foraminal canal | | | stenoses are present due to uncovertebral hypertrophy. | | | C7/T1: No central canal or neural foraminal canal stenosis. | | | IMPRESSION: 1. THERE IS GROSS PATENCY INVOLVING THE | | | BILATERAL CAROTID AND VERTEBROBASILAR SYSTEMS. ABOUT 4% STENOSIS IS | | | SEEN IN THE PROXIMAL RIGHT INTERNAL CAROTID ARTERY. THERE IS ABOUT 45% | | | STENOSIS OF THE LEFT PROXIMAL INTERNAL CAROTID ARTERY. | | | Dictated Date/Time: 04/03/2012 16:54 Transcribed Date/Time: | | | 04/03/2012 17:46 Electronic Field Service Engineer: | | | <<Signature on File>> | | | Domingo | | | MD Josr04/03/12 5618 <Electronically signed by Domingo Ovalles MD> | | | Domingo Ovalles MD 04/03/12 6409 Electronic Field Service Engineer: Sujatha | | | [id number]/21/13 0666 J Carlos Muhammad MD | | | | | + + + + + + + + | Performing | Address | City/State/Zipcode | Phone Number | | Organization | | | | + + + + + | [facility] | [address] | [place] | [phone] | | [facility] | | [address] | | | - IMAGING | | | | + + + + + documented in this encounter Visit Diagnoses Not on filedocumented in this encounter
--- OUTSIDE RECORDS SUMMARY | ~2019-07-17 | XMS | Encounter Summary ---
Demographics + + + | Address | [address] | | | [place] [address] | + + + | Home Phone | | + + + | Preferred Language | Unknown | + + + | Marital Status | | + + + | Advent Affiliation | Unknown | + + + | Race | Unknown | + + + | Ethnic Group | Unknown | + + + Author + + + | Author | [facility] | | | and [place] | + + + | Organization | [facility] | | | and [place] | + + + | Address | Unknown | + + + | Phone | Unavailable | + + + Support + + + + + | Name | Relationship | Address | Phone | + + + + + | Veronica Anderson | ECON | [place] | | | | | [address] | | + + + + + | Beatrice Paulson | ECON | [address] | | | | | [place] | | | | | [address] | | + + + + + Care Team Providers + +------+ + | Care Orthopedic Radiologic Technologist Name | Role | Phone | + +------+ + | Parvez Vail MD | PCP | | + +------+ + Reason for Visit +--------+ + | Reason | Comments | +--------+ + | Pre-Op | | +--------+ + Encounter Details +--------+ + + + + | Date | Type | Department | Care Team | Description | +--------+ + + + + | 03/30/ | Telephone | [facility] | Elvin Jamil | Pre-Op | | 2019 | | CENTER CV INTRA OP | MD [address] | | | | | [address] | [facility] | | | | | [place], [place] | [place], [place] | | | | | [address] | [address] | | | | | [phone] | | | +--------+ + + + [...] [place] | | | | | | [address] | | | | | | | | +--------+---------+ + + + documented as of this encounter Visit Diagnoses Not on filedocumented in this encounter"
--- OUTSIDE RECORDS SUMMARY | ~2019-07-17 | XMS | Encounter Summary ---
Demographics + + + | Address | [address] | | | [place] [address] | + + + | Home Phone | | + + + | Preferred Language | Unknown | + + + | Marital Status | | + + + | Rastafarian Affiliation | Unknown | + + + | Race | Unknown | + + + | Ethnic Group | Unknown | + + + Author + + + | Author | [facility] | | | and [place] | + + + | Organization | [facility] | | | and [place] | + + + | Address | Unknown | + + + | Phone | Unavailable | + + + Support + + + + + | Name | Relationship | Address | Phone | + + + + + | Veronica Anderson | ECON | [place] | | | | | [address] | | + + + + + | Beatrice Paulson | ECON | [address] | | | | | [place] | | | | | [address] | | + + + + + Care Team Providers + +------+ + | Care Dance Historian Name | Role | Phone | + +------+ + | Parvez Vail MD | PCP | | + +------+ + Reason for Visit + + + | Reason | Comments | + + + | Screening For | | | Communicable Disease | | + + + Encounter Details +--------+ + + + + | Date | Type | Department | Care Team | Description | +--------+ + + + + | 06/29/ | Telephone | [facility] | Elvin Jamil | Screening For | | 2020 | | CARDIOLOGY RANCHO CUCAMONGA | MD [address] | Communicable Disease | | | | [address] | [facility] | | | | | [place], [place] | [place], [place] | | | | | [address] | [address] | | | | | [phone] | | | +--------+ + + + [...] Alfaro | | | | | | [place] | | | | | | [address] | | | | | | | | +--------+---------+ + + + documented as of this encounter Visit Diagnoses Not on filedocumented in this encounter"
--- OUTSIDE RECORDS SUMMARY | ~2019-07-17 | XMS | Encounter Summary ---
Demographics + + + | Address | [address] | | | [place] [address] | + + + | Home Phone | | + + + | Preferred Language | Unknown | + + + | Marital Status | | + + + | Yazdanism Affiliation | Unknown | + + + | Race | Unknown | + + + | Ethnic Group | Unknown | + + + Author + + + | Author | [facility] | | | and [place] | + + + | Organization | [facility] | | | and [place] | + + + | Address | Unknown | + + + | Phone | Unavailable | + + + Support + + + + + | Name | Relationship | Address | Phone | + + + + + | Veronica Anderson | ECON | [place] | | | | | [address] | | + + + + + | Beatrice Paulson | ECON | [address] | | | | | [place] | | | | | [address] | | + + + + + Care Team Providers + +------+ + | Care Director Of Curriculum Name | Role | Phone | + +------+ + | Parvez Vail MD | PCP | | + +------+ + Reason for Visit +--------+ + | Reason | Comments | +--------+ + | Other | | +--------+ + Encounter Details +--------+ + + + + | Date | Type | Department | Care Team | Description | +--------+ + + + + | 05/21/ | Telephone | [facility] | Parnav Villar DNP | Other | | 2020 | | VASCULAR SURGERY | [address] | | | | | [address] | [place], [place] | | | | | [place], [place] | [address] | | | | | [address] | | | | | | [phone] | | | +--------+ + + + [...] | | | | | Lizzie [address] [place] | | | | | | [place] | | | | | | [address] | | | | | | | | +--------+---------+ + + + documented as of this encounter Visit Diagnoses Not on filedocumented in this encounter"
--- OUTSIDE RECORDS SUMMARY | ~2019-07-17 | XMS | Encounter Summary ---
Demographics + + + | Address | [address] | | | [place] [address] | + + + | Home Phone | | + + + | Preferred Language | Unknown | + + + | Marital Status | | + + + | Quaker Affiliation | Unknown | + + + | Race | Unknown | + + + | Ethnic Group | Unknown | + + + Author + + + | Author | [facility] | | | and [place] | + + + | Organization | [facility] | | | and [place] | + + + | Address | Unknown | + + + | Phone | Unavailable | + + + Support + + + + + | Name | Relationship | Address | Phone | + + + + + | Veronica Anderson | ECON | [place] | | | | | [address] | | + + + + + | Beatrice Paulson | ECON | [address] | | | | | [place] | | | | | [address] | | + + + + + Care Team Providers + +------+ + | Care Inspector Barrel Name | Role | Phone | + +------+ + | Parvez Vail MD | PCP | | + +------+ + Encounter Details +--------+ + + + + | Date | Type | Department | Care Team | Description | +--------+ + + + + | 03/11/ | Telephone | [facility] | Lisa Nash, | | | 2019 | | [facility] | RN | | | | | [address] | | | | | | [place] | | | | | | [address] | | | | | | [phone] | | | +--------+ + + + [...] [address] | | | | | | [facility] | | | | | | [place] | | | | | | [address] | | | | | | | | +--------+---------+ + + + documented as of this encounter Visit Diagnoses Not on filedocumented in this encounter"
--- OUTSIDE RECORDS SUMMARY | ~2019-07-17 | XMS | Encounter Summary ---
Demographics + + + | Address | [address] | | | [place] [address] | + + + | Home Phone | | + + + | Preferred Language | Unknown | + + + | Marital Status | | + + + | Rastafarian Affiliation | Unknown | + + + | Race | Unknown | + + + | Ethnic Group | Unknown | + + + Author + + + | Author | [facility] | | | and [place] | + + + | Organization | [facility] | | | and [place] | + + + | Address | Unknown | + + + | Phone | Unavailable | + + + Support + + + + + | Name | Relationship | Address | Phone | + + + + + | Veronica Anderson | ECON | [place] | | | | | [address] | | + + + + + | Beatrice Paulson | ECON | [address] | | | | | [place] | | | | | [address] | | + + + + + Care Team Providers + +------+ + | Care Isotope Hydrologist Name | Role | Phone | + [...] Closed | | Radiology | Diagnoses | Ribera, | [facility] | | | | | Status post | Justen F, | Imaging [address] | | | | | lumbar | MD [address] | | | | | spinal | [address] | [address] [place] | | | | | fusion | [place], | [place], [place] | | | | | Bilateral | [place] [address] | [address] | | | | | leg weakness | Phone: | Phone: | | | | | Procedures | [phone] | [phone] | | | | | MRI Lumbar | [phone] Fax: | Fax: | | | | | Spine w wo | | [phone] | | | | | Contrast | [phone] | | +--------+--------+ + + + + Encounter Details +--------+ + + + + | Date | Type | Department | Care Team | Description | +--------+ + + + + | 01/21/ | Orders Only | [facility] [place] | Justen Ribera | Status post lumbar | | 2011 | | NEUROSURGERY [address] | F, MD [address] | spinal fusion; | | | | [address] | St [place], [place] | Bilateral leg | | | | [place], [place] | [address] | weakness | | | | [address] | [phone] | | | | | [phone] | | | +--------+ + + + [...] | | | | | | [facility] | | | | | | [place] | | | | | | [address] | | | | | | | | +--------+---------+ + + + documented as of this encounter Results MRI Lumbar Spine w wo Contrast (01/31/2012 2:33 PM PST) + + | Specimen | + + | | + + + + + | Narrative | Performed At | + + + | [facility] | [place] | | Department [address] [place] | [facility] | | [ rep ct [address]] [ rep ct [facility] | | st zip] Signed | - IMAGING | | | | | Patient Name: KASSIE BEAR Physician: | | | JOSI.01 : 1940 Age: 71 Sex: F Unit #: [id number] | | | Exam Date: 01/31/12 Location: [facility] | | | Report #: [id number] Page: | | | %(RAD)RES..mtdd.print.filter("pg") of %(RAD) | | | RES..mtdd.print.filter("tpg") | | | | | | Accession Number: [id number] | | | LUMBAR SPINE MRI WITH AND WITHOUT CONTRAST 01/31/2012 | | | CLINICAL HISTORY: BACK PAIN AND LEG WEAKNESS. COMPARISON: | | | Radiographs dated 07/27/2011. Lumbar spine MRI 11/17/2008. | | | TECHNIQUE: Multiplanar and multisequence MR imaging of the lumbar | | | spine are obtained following 10 mL of Gadovist contrast. | | | FINDINGS: Since the prior MRI, there has been interspinous process | | | plating/fusion of L3/4 posterior spinous processes. This has been | | | demonstrated on subsequent radiographs. Alignment of L3/4 is stable. | | | Since the prior MRI there has been progression of anterolisthesis of | | | L4 in relation to L5. This appears relatively stable compared to the | | | most recent comparison radiograph. There is a very small component | | | of retrolisthesis of L2 in relation to L3 by about 2-3 mm. There are | | | no compression deformities. No significant endplate degenerative | | | changes. Diffuse disc desiccation. Disc narrowing at all levels, | | | more moderate at L3/4 and L4/5. More preserved at L5/S1. 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 The | | | largest is on the left and measures about 15 mm, no change. Conus is | | | terminating at the level of L2/3. This is also unchanged. | | | The following was evaluated in the axial plane: L2/3: | | | Circumferential disc bulge. Facet arthrosis and ligament flavum | | | redundancy. Moderate central spinal canal narrowing. Mild | | | encroachment of subarticular recesses. Moderate bilateral neural | | | foraminal narrowing creates a small right-sided perineural cyst in the | | | neural foramen. These findings are mildly progressed compared to | | | the prior MRI. L3/4: Post-operative changes in the | | | posterior spinous process. Facet hypertrophy. Small foraminal | | | components of disc protrusion. Overall mild to moderate central spinal | | | canal narrowing which has been reduced possibly on the basis of | | | discectomy and other posterior decompressive changes. Stable | | | component of moderate right and mild to moderate left neural foraminal | | | narrowing. L4/5: Uncovering of the disc. Severe facet | | | arthrosis. Ligamentum flavum redundancy. Superimposed diffuse disc | | | bulging. This results in significant narrowing in the subarticular | | | recesses. Moderate overall narrowing in the central spinal canal. At | | | least moderate bilateral neural foraminal narrowing. All of the | | | abnormalities are progressed compared to the prior MRI. | | | L5/S1: Bilateral moderate facet arthrosis. No significant disc bulge | | | or protrusion. Central spinal canal is patent. Mild bilateral | | | neural foraminal narrowing. Following contrast | | | administration no significant abnormal osseous or soft tissue | | | enhancement. Specifically no enhancement in the surgical levels of | | | L3 and L4. There is faint enhancement with one possibly two caudal | | | nerve roots. It is difficult to definitively identify which nerve | | | roots on the axial sequence. IMPRESSION: 1. | | | POSTOPERATIVE CHANGES AT L3/4 WITH POSTERIOR SPINOUS PROCESS PLATING. | | | COMPARED TO THE PRIOR MRI THERE APPEARS TO HAVE BEEN INTERVAL | | | DISCECTOMY AND A COMPONENT OF DECOMPRESSION AT THIS L3/4 LEVEL WHICH | | | HAS RESULTED IN IMPROVED SPACING IN THE CENTRAL SPINAL CANAL. STABLE | | | NEURAL FORAMINAL NARROWING AT THAT LEVEL. 2. 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 3. PROGRESSIVE | | | NOW MODERATE CENTRAL SPINAL CANAL NARROWING AT L2/3, MULTIFACTORIAL. | | | 4. VERY NONSPECIFIC MINIMAL ENHANCEMENT OF 1 POSSIBLY 2 | | | CAUDAL NERVE ROOTS. Dictated Date/Time: 01/31/2012 14:33 | | | Transcribed Date/Time: 01/31/2012 15:16 Study Specialist: | | | <<Signature on File>> | | | Mando | | | Perla Yang MD01/31/12 7000 <Electronically signed by Mando Duncan | | | Celia [place]> Mando Yang MD 01/31/12 3474 | | | Study Specialist: [id number] [id number]/20/12 1516 | | | Justen Ribera MD | | + + + + + + + + | Performing | Address | City/State/Zipcode | Phone Number | | Organization | | | | + + + + + | [facility] | [address] | [place] | [phone] | | [facility] | | [address] | | | - IMAGING | | | | + + + + + documented in this encounter Visit Diagnoses + + | Diagnosis | + + | Status post lumbar spinal fusion Arthrodesis status | + + | Bilateral leg weakness Other musculoskeletal symptoms referable to limbs | + + documented in this encounter
--- OUTSIDE RECORDS SUMMARY | ~2019-07-17 | XMS | Encounter Summary ---
Demographics + + + | Address | [address] | | | [place] [address] | + + + | Home Phone | | + + + | Preferred Language | Unknown | + + + | Marital Status | | + + + | Confucianist Affiliation | Unknown | + + + | Race | Unknown | + + + | Ethnic Group | Unknown | + + + Author + + + | Author | [facility] | | | and [place] | + + + | Organization | [facility] | | | and [place] | + + + | Address | Unknown | + + + | Phone | Unavailable | + + + Support + + + + + | Name | Relationship | Address | Phone | + + + + + | Veronica Anderson | ECON | [place] | | | | | [address] | | + + + + + | Beatrice Paulson | ECON | [address] | | | | | [place] | | | | | [address] | | + + + + + Care Team Providers + +------+ + | Care Beaming Machine Operator Name | Role | Phone | + [...] | | | | | | sm ([facility]LY [facility]) | | | | | | | [...] | +--------+ + + + + | 03/31/ | Hospital | [facility] | Elvin Jamil | Persistent atrial | | 2019 - | Encounter | [facility] | [address] | fibrillation (HCC) | | | | [address] | [facility] | | | 04/01/ | | [place], [place] | [place], [place] | | | 2019 | | [address] | [address] | | | | | [phone] | | | +--------+ + + + [...] + + + | Blood Pressure | 114/52 | 04/01/2019 8:27 AM | | | | | PST | | + + + + + | Pulse | 81 | 04/01/2019 8:27 AM | | | | | PST | | + + + + + | Temperature | 36.7 C (98.1 F) | 04/01/2019 7:44 AM | | | | | PST | | + + + + + | Respiratory Rate | 18 | 04/01/2019 7:44 AM | | | | | PST | | + + + + + | Oxygen Saturation | 96% | 04/01/2019 7:44 AM | | | | | PST | | + + + + + | Inhaled Oxygen | - | - | | | Concentration | | | | + + + + + | Weight | 126.6 kg (279 lb) | 03/31/2019 4:19 PM | | | | | PST | | + + + + + | Height | 172.7 cm (5' 8") | 03/31/2019 6:58 AM | | | | | PST | | + + + + + | Body Mass Index | 42.42 | 03/31/2019 6:58 AM | | | | | PST | | + + + + + documented in this encounter Discharge Instructions Instructions Breana Charles ARNP - 03/26/2019 Groin bandages may come off in shower at home the day after you get home from your procedure - OK to shower with dressings in [facility] the day you get home. Avoid scrubbing groin sites x3 days post procedure to prevent possible bleeding from the puncture sites. Continue all regular medications without change - including your usual Coumadin dosing a s directed by Coumadin clinic - keep your regularly scheduled INR checks. Your INR was 2.9 t his visit (03/31/2019). No driving for 3 days after your procedure. No lifting more than 10 pounds x1 week post procedure. No strenuous activity x 1 week - OK to walk and if you have stairs at home, it is OK to climb them after you get home. Be mindful of any arrhythmia recurrence. It is normal to have occasional extra heart keily ts, but you should not have a very rapid heart rate or sustained irregular heart rhythm anym ore. If you do, please let us know - it is not unusual to have some atrial fibrillation foll owing your procedure - the tissue needs time (up to 3 months) to heal - recurrent atrial fib rillation post procedurally does not meat your procedure was not a success. Routine follow up in electrophysiology clinic 3-4 weeks post-procedure - sooner if recur rent atrial fibrillation is noted. Please try to complete your sleep study within the next three months - start CPAP if ind icated. Please call our office if any issues arise prior to scheduled follow up! 1. AF ablation is a big deal: The first thing to say about AF ablation is that it is a big procedure. I tell patients to expect AF ablation to be hard on them. How could it be easy to undergo hours of general anes thesia, insertion of big tubes in the leg veins, 50-75 alex in the atrium and hours of bed rest? Although a minority sail through the recovery without complaints, most patients tell m e they were surprised at how hard it was on them. I recommend taking a few weeks off after t he procedure. Specifically, I say read books, watch movies, write a blog, take short walks . but don t go back to full-gas exercise for a couple of weeks. NO LIFTING ANYTHING HEAVIER THAN 10 POUNDS FOR ONE WEEK. 2. Chest pain is common: A majority of patients have chest pain for a few days after the procedure. The severity of the pain varies a lot. Most often, it hurts to take a deep breath or cough. Some patients sa y their chest feels tight. These symptoms are likely due to irritation of the lining of the heart, called the pericardium. It s hard to predict who will get post-procedural chest jair n. Sometimes you do extensive ablation and there is no pain, while other times you have an e asy ablation and there is severe pain. It resolves over days. 3. Pain at the insertion site in the groin: It s common to have soreness at the insertion site in the groins. We access the heart by inserting multiple sheaths (essentially big IVs) in the leg veins at the groin. To prevent c lots from forming in the heart, we perform AF ablation without interrupting anticoagulation. This means firm pressure will be required when the sheaths are removed. And that causes genaro lobo degrees of soreness in the groin region over the following days. Bruising is common. An d bruising will follow gravity, so it s common for auuft-wvs-sodz quezada to move down the l eg. Sheath placement or removal may also irritate the nerve bundle that runs adjacent to the leg (femoral) vein. Although most patients have discomfort at the insertion site, persistent pain (for more efra n a few days) or swelling are causes for concern. One of the most common complications of AF ablation is injury to the vein or artery in this region. In these cases, a caregiver will l savitaely want to take a look at the site. Occasionally, we might order an ultrasound. 4. General anesthesia effects: Most electrophysiologists use general anesthesia for AF ablation. Some patients chew up (me tabolize) the gas and drugs easily; others do not. Many patients feel nausea and groggy for hours. Some patients experience these symptoms for days. It s also common to have a sore t hroat or cough from the (endotracheal) tube. There is a great deal of variation in how peopl e tolerate anesthesia. 5. Arrhythmia: Do not expect to have a flawless rhythm after AF ablation. Remember that this was a big pro cedure. The many alex it takes to isolate pulmonary veins can irritate the heart, which in turn may cause arrhythmia. Other possible disruptions to the rhythm include prolonged bed re st, effects of anesthesia, and pain. Premature beats in the hours to days after the procedure are common. Atrial fibrillation ca n occur. Although having AF after an ablation is a risk factor for a future recurrence, it d oesn t mean the procedure did not work. The alex irritate the heart, and as they heal (ex pand), over days to weeks, the irregular rhythm can resolve. This is why we have what s ca lled a waiting period (6-8 weeks) after the procedure before we declare success or not. AF that occurs in the post-procedure period is rarely dangerous because all patients are kept on anticoagulation and most patients remain on rate-slowing meds. Persistent high heart rate s (which sometimes indicates left atrial flutter) can be more difficult to control, sometime s requiring cardioversion. 6. Resting heart rate changes: The resting heart rate can increase in the weeks or months after ablation. The increase is usually 10-20 beats per minute more than pre-procedure levels. This phenomenon usually resol ves. We do not fully understand the way in which AF ablation works. It s not as simple as just building an electrical fence around pulmonary veins. One effect of ablation in the region o f pulmonary veins is changing neural input to the heart. Bundles of nerves, called ganglia, reside close to the origin of the veins. Ablation at these sites can alter neural control of the heart. Some experts believe this is a positive effect in that it may predict ablation s uccess. 8. Exercise Tolerance: The ability to sustain exercise can be decreased for weeks to months after the procedure. I t will likely come back. The reasons AF ablation transiently decreases exercise tolerance ar e numerous: it is a big procedure, the alex can cause stunning of the atria, there is decon ditioning that occurs before and after the procedure, and many patients remain on AF drugs f or a month or two after the procedure. The main message here is be patient. Give yourself we eks to months to recover. 9. Fluid overload/Edema: It is not uncommon to develop volume excess. This can manifest as swelling of the hands, fe et, or face. It may also cause transient shortness of breath, cough or high blood pressure. Reasons: ablation catheters deliver saline (salt water) with each burn; anesthesia often req uires saline infusions to maintain blood pressure, and the heart can be stunned after ablati on. Swelling and volume excess is not heart failure per se, but it usually responds to a few days or weeks of taking a diuretic medication. 10. Digestive problems: I have seen, in a handful of cases, patients have trouble moving food through their GI trac t after ablation. Symptoms include reflux, feeling bloated, and intolerance of big meals, wh ile signs may include distention of the abdomen. Ablation in the left atrium may transiently damage nerves that control motility of the GI tract. The good news is that these effects re solve with time. I usually treat this problem by recommending small meals, and an acid block er. 11. Fever: It is NEVER normal to have a fever > 101 degrees after this procedure. If you do develop a fever, please call our office ADAM. If it is after hours, please call our answering services and you will be connected directly with Dr. Jamil. documented in this encounter Medications at Time of Discharge [...] + + documented as of this encounter Progress Notes Rivka Brand RN - 04/01/2019 11:27 AM PSTPatient discharged in stable condition with all personal belongings. No IV access. All discharge instructions given to and understood by patient. Breana Bustilol ARNP - 04/01/2019 7:01 AM PST Cardiac Electrophysiology Progress Note 04/01/2019, 7:02 AM Subjective: Patient seen in follow-up s/p yesterday's Procedure:1) arterialmonitoring 2) intracardiac echocardiography 3) comprehensive electrophysiology study 4) induction/attempt at induction of arrhyt hmia 5) coronary sinus catheterlization 6) 3D catheter mapping 7) transseptal puncture via intact septum 8) pulmonary vein isolation via cryoablatio n 9) direct current synchronized cardioversio n 10) radiofrequency ablation of SVT (CTI for atrial flutter) Performed by:Doctor Jamil Indication:atrial fibrillation Patient awake and alert. No events noted overnight. No report of chest pain, shortness of breath, or palpitations. She maintains SR 60's-70's at rest post ablation. Post procedural recovery period uncomplicated. She struggled with some exacerbation in her chronic back pain with procedural positioning and post procedure bed rest activity limitations - states dayna viation with being able to sit upright and prefers use of Tylenol PRN. She's been OOB and am bulatory to baseline with use of arm crutches without incident. No medication changes. DC i nstructions and follow up plan reviewed, questions asked and answered with expressed underst anding/satisfaction. Patient is stable and ready for discharge home later this morning with EP clinic follow up 05/04/19. Medications (Current): Current Facility-Administered Medications Medication Dose Route Frequency Provider Last Rate Last Dose amiodarone (PACERONE) tablet 200 mg 200 mg Oral Daily Elvin Jamil MD atenolol (TENORMIN) tablet 50 mg 50 mg Oral Daily Elvin Jamil MD lidocaine 1% injection PRN Elvin Jamil MD 20 mL at 03/31/19 0801 ondansetron (ZOFRAN) injection 4 mg 4 mg Intravenous Q6H PRN SYLVIA Berry oxyCODONE-acetaminophen (PERCOCET) 5-325 mg per tablet 1-2 tablet 1-2 tablet Oral Q6H PRN SYLVIA Berry 1 tablet at 04/01/19 0140 pravastatin (PRAVACHOL) tablet 20 mg 20 mg Oral Nightly Elvin Jamil MD 20 mg at 03/31/19 2103 sodium chloride 0.9% (NS) infusion Intravenous Continuous Rigoberto Mojica 10 mL/hr at 03/31/19 0705 Objective: Vital signs: Temp (24hrs), Av.5 C (97.7 F), Min:36.2 C (97.2 F), Max:36.9 C (98.5 F) Vitals: 03/31/19 1630 03/31/19 1900 03/31/19 2338 04/01/19 0400 BP: 140/66 101/49 106/55 115/56 Pulse: 65 65 72 71 Resp: Temp: 36.3 C (97.4 F) 36.6 C (97.8 F) 36.9 C (98.5 F) TempSrc: Oral Oral Oral SpO2: 98% 95% 94% 95% Weight: Height: Weight(s): Wt Readings from Last 4 Encounters: 03/31/19 126.6 kg (279 lb) 03/06/19 127.6 kg (281 lb 4.8 oz) 02/20/19 128.5 kg (283 lb 4.7 oz) 02/18/19 128.5 kg (283 lb 4.8 oz) Current Height: Ht Readings from Last 1 Encounters: 03/31/19 1.727 m (5' 8") BMI: Body mass index is 42.42 kg/m. Intake/Output last 3 shifts: Intake/Output Summary (Last 24 hours) at 04/01/2019 0702 Last data filed at 04/01/2019 0600 Gross per 24 hour Intake 2436 ml Output 945 ml Net 1491 ml Labs: Lab Results Component Value Date NA 140 03/31/2019 K 4.0 03/31/2019 CL 105 03/31/2019 CO2 26 03/31/2019 BUN 14 03/31/2019 HGB 15.0 03/31/2019 WBC 8.30 03/31/2019 RBC 4.91 03/31/2019 PLT 288 03/31/2019 INR 2.9 03/31/2019 Physical Exam: General: well-developed, in no acute distress, seated up in bed having finished breakfast Neck: no JVD Lungs: diminished but clear, no wheezes, rales, rhonchi Heart: regular rate and rhythm, Sinus rates 60's-70's at rest Extremities: no clubbing, overt cyanosis, or pitting edema Neuro: awake and alert, pleasantly conversational, appropriate responsiveness and tone Groin access sites: Dressings CDI, sites mildly tender to palpation. No oozing, bruising, h ematoma. Telemetry: Sinus rhythm 70's Assessment/Plan: Forwarded from Dr Jamil's H&P & updated to reflect current status 1) Atrial fibrillation - Ms. Arzateoted shortness of breath with activity in August 2018. She was ultimately seen by cardiology and atrial fibrillation was noted. She was starte d on anticoagulation initially with Eliquis but found that the medication was too expensive and was switched to warfarin. Amiodarone was then started in October 2018 and cardiovers ion performed in December 2018 with mormon of sinus rhythm. She did note an improveme nt in her symptoms with mormon of sinus rhythm but unfortunately symptoms returned abou t 2 to 3 days after the cardioversion. Persistent atrial fibrillation has been noted since .She elected to undergo cardioversion after further amiodarone loading and sinus rhythm was restored recently. Unfortunately atrial fibrillation recurred and she continued with s ymptoms. Dr Jamil discussed rate versus rhythm control. She elected to continue with a rhythm control strategy and pulmonary vein isolation was reviewed to include the risks and benefits of the procedure - she opted to proceed. She completed a CT scan of the chest to assess her pulmonary vein anatomy prior to the procedure. She continues on amiodarone 200 mg daily in addition to atenolol 50 mg daily. She continues on warfarin to maintain an IN R between 2 and 3. Unfortunately, the novel oral anticoagulants are expensive under her [facility] plan. Her echocardiogram performed in August 2018 demonstrated normal left ve ntricular function but moderate biatrial enlargement was noted. 2) Chest discomfort - Shehas noted occasional twinges below her left breast on and off fo r the past several months. I have recommended a pharmacologic stress test to exclude any p erfusion abnormalities prior to general anesthesia with her ablation. 3) Sleep apnea - Shehas multiple risk factors for obstructive sleep apnea. Daisy toledo obtain a sleep evaluation close to her home. She is aware of the associatio n of obstructive sleep apnea with atrial dysrhythmias. I recommended she start CPAP if ind icated. She has begun the process of completing her sleep study by submitting her new patien t intake forms; she is awaiting scheduling of her overnight eval and states she believes the soonest opening will be late April. She is agreeable to continuing to pursue completion of sleep eval, preferably before her three month post ablation frank so that if indicated, she m ay begin CPAP adam. Electronically signed by: SYLVIA Cervantes 04/01/2019 8:48 AM Associated attestation - Elvin Jamil MD - 04/01/2019 4:04 PM PSTI have inte rviewed and examined this patient on 04/01/19 and agree with the findings and plan of the [facility] practice provider/house staff with further assessment and decision-making as noted he reafter. 78-year-old female with a history of atrial fibrillation on amiodarone/anticoagulation, hyp ertension, hypercholesterolemia who was admitted for pulmonary vein isolation. 1) atrial fibrillation -patient with a history of atrial fibrillation with symptoms despite antiarrhythmic medication -given persistent atrial fibrillation she elected to proceed with pulmonary vein isolation which was performed via cryoablation this admission with right-lis ed flutter ablation -sinus rhythm persists post procedure -wound care and restrictions were reviewed -continue amiodarone 200 mg daily along with atenolol 50 mg daily -she continues on anticoagulation with warfarin -EP follow-up in 3 to 4 weeks 2) hypertension 3) hypercholesterolemia 4) disposition -discharge to home -EP follow-up in 3 to 4 weeksTianna Alexis RN - 03/14 6:23 AM PSTBilateral groin sites soft, dry, no hematoma. Pt voided x3 this shift, no need for straight cath. PRN percocet given for pain x1 with pain relief. Otherwise hourly r ounding uneventful. End of shift chart check complete. Tianna Alexis RN ivka Brand RN - 03/31/2019 6:37 PM PSTPatient stable throughout shift, bilateral groin site soft, dry , no hematoma. Having difficulty voiding, one time order for straight cath given. End of shift chart check reviewedElectronically signed by Rivka Brand RN at 020 6:39 PM Jace Kumar RN - 03/31/2019 10:11 AM PSTL, arterial groin site CDI. No adverse events, hematoma, or oozing present. Distal pulses palpable, cap refill WDL, col or appropriate for ethnicity. Closure device: Manual Hemostasis: 1045 Jace Kumar RN - 03/31/2019 10:11 AM PSTL, venous groin site CDI. No adverse events, hematoma, or oo zing present. Distal pulses palpable, cap refill WDL, color appropriate for ethnicity. Closure device: Manual Hemostasis: 1045 ace Marc RN - 03/31/2019 10:10 AM PSTR venous groin site CDI. No adverse events, hematoma, or ooz ing present. Distal pulses palpable, cap refill WDL, color appropriate for ethnicity. Closure device: Manual Hemostasis: 1045 documented in thi s encounter Plan of Treatment +--------+---------+ + + + | Date | Type | Specialty | Care Team | Description | +--------+---------+ + + + | 10/06/ | Office | Cardiology | Elvin Jamil | | 2019 | Visit | | [address] | | | | | | [facility] | | | | | | [place] | | | | | | [id number] | | | | | | | | +--------+---------+ + + + documented as of this encounter Procedures + +--------+ + + + | Procedure Name | Priori | Date/Time | Associated Diagnosis | Comments | | | ty | | | | + +--------+ + + + | ECG 12 LEAD | ADAM | 03/31/2019 | | Results for this | | | | 12:43 PM | | procedure are in the | | | | PST | | results section. | + +--------+ + + + | ACTIVATED CLOTTING | Routin | 03/31/2019 | | Results for this | | TIME | e | 9:26 AM | | procedure are in the | | | | PST | | results section. | + +--------+ + + + | ACTIVATED CLOTTING | Routin | 03/31/2019 | | Results for this | | TIME | e | 9:02 AM | | procedure are in the | | | | PST | | results section. | + +--------+ + + + | ACTIVATED CLOTTING | Routin | 03/31/2019 | | Results for this | | TIME | e | 8:39 AM | | procedure are in the | | | | PST | | results section. | + +--------+ + + + | PROTIME INR | STAT | 03/31/2019 | | Results for this | | | | 7:11 AM | | procedure are in the | | | | PST | | results section. | + +--------+ + + + | CBC WITH | STAT | 03/31/2019 | | Results for this | | DIFFERENTIAL | | 7:11 AM | | procedure are in the | | | | PST | | results section. | + +--------+ + + + | BASIC METABOLIC | STAT | 03/31/2019 | | Results for this | | PANEL | | 7:11 AM | | procedure are in the | | | | PST | | results section. | + +--------+ + + + | CV EP PROCEDURE | Routin | 03/31/2019 | Persistent atrial | Results for this | | | e | 7:06 AM | fibrillation (HCC) | procedure are in the | | | | PST | | results section. | + +--------+ + + + | ECG 12 LEAD | STAT | 03/31/2019 | | Results for this | | | | 6:51 AM | | procedure are in the | | | | PST | | results section. | + +--------+ + + + documented in this encounter Results ECG 12 lead (03/31/2019 12:43 PM PST) + + + + + + | Component | Value | Ref Range | Performed | Pathologist | | | | | At | Signature | + + + + + + | VENTRICULAR | 67 | BPM | [facility] | | | RATE EKG | | | | | + + + + + + | ATRIAL RATE | 67 | BPM | [facility] | | + + + + + + | P-R | 218 | ms | [facility] | | | INTERVAL | | | | | + + + + + + | QRS | 106 | ms | [facility] | | | DURATION | | | | | + + + + + + | Q-T | 468 | ms | [facility] | | | INTERVAL | | | | | + + + + + + | Q-T | 494 | ms | [facility] | | | INTERVAL | | | | | | (CORRECTED) | | | | | + + + + + + | P WAVE AXIS | 60 | degrees | [facility] | | + + + + + + | QRS AXIS | 22 | degrees | [facility] | | + + + + + + | T AXIS | 42 | degrees | [facility] | | + + + + + + | INTERPRETAT | Sinus rhythm with 1st | | [facility] | | | ION TEXT | degree A-V blockPossible | | | | | | Left atrial | | | | | | enlargementProlonged | | | | | | QTAbnormal ECGConfirmed | | | | | | by lFaco Milian MD | | | | | | ([id number]) on 03/31/2019 | | | | | | 6:04:45 PM | | | | + + [...] | | | + +---------+ + + Activated clotting time (03/31/2019 9:26 AM PST) + + + + + + | Component | Value | Ref Range | Performed | Pathologist | | | | | At | Signature | + + + + + + | Activated | 340 (H)Comment: Testing | 74 - 137 | [facility] | | | Clotting | performed at [facility];888 | seconds | LABORATORY | | | Time, POC | [address];[place] | | | | | | [address] | | | | + + + + + + + + | Specimen | + + | | + + + + + + + | Performing | Address | City/State/Zipcode | Phone Number | | Organization | | | | + + + + + | [facility] | [address] | [place] [address] | [phone] | + + + + + Activated clotting time (03/31/2019 9:02 AM PST) + + + + + + | Component | Value | Ref Range | Performed | Pathologist | | | | | At | Signature | + + + + + + | Activated | 357 (H)Comment: Testing | 74 - 137 | [facility] | | | Clotting | performed at [facility];888 | seconds | LABORATORY | | | Time, POC | [address];[place] | | | | | | [address] | | | | + + + + + + + + | Specimen | + + | | + + + + + + + | Performing | Address | City/State/Zipcode | Phone Number | | Organization | | | | + + + + + | [facility] | [address] | [place] [address] | [phone] | + + + + + Activated clotting time (03/31/2019 8:39 AM PST) + + + + + + | Component | Value | Ref Range | Performed | Pathologist | | | | | At | Signature | + + + + + + | Activated | 351 (H)Comment: Testing | 74 - 137 | [facility] | | | Clotting | performed at [facility];888 | seconds | LABORATORY | | | Time, POC | [address];[place] | | | | | | [address] | | | | + + + + + + + + | Specimen | + + | | + + + + + + + | Performing | Address | City/State/Zipcode | Phone Number | | Organization | | | | + + + + + | [facility] | [address] | [place] [address] | [phone] | + + + + + Protime INR (03/31/2019 7:11 AM PST) + + + + + + | Component | Value | Ref Range | Performed | Pathologist | | | | | At | Signature | + + + + + + | INR | 2.9Comment: REFERENCE | | [facility] | | | | RANGE:0.9 - 1.2 | | LABORATORY | | | | NON-ANTICOAGULATED2.0 | | | | | | - 3.0 ALL OTHER | | | | | | THERAPEUTIC | | | | | | INDICATIONS2.5 - 3.5 | | | | | | MECHANICAL HEART VALVES, | | | | | | RECURRENT OR SYSTEMIC | | | | | | EMBOLISMTesting | | | | | | performed at [facility];[address] | | | | | | [address];[place] | | | | | | [address] | | | | + + + + + + + + | Specimen | + + | Blood | + + + + + + + | Performing | Address | City/State/Zipcode | Phone Number | | Organization | | | | + + + + + | [facility] | [address] | [place] [address] | [phone] | + + + + + CBC with Differential (03/31/2019 7:11 AM PST) + + + + + + | Component | Value | Ref Range | Performed | Pathologist | | | | | At | Signature | + + + + + + | WBC | 8.30 | 3.80 - 11.00 | [facility] | | | | | K/uL | LABORATORY | | + + + + + + | RBC | 4.91 | 3.70 - 5.10 | [facility] | | | | | M/uL | LABORATORY | | + + + + + + | Hemoglobin | 15.0 | 11.3 - 15.5 | [facility] | | | | | g/dL | LABORATORY | | + + + + + + | Hematocrit | 45.5 | 34.0 - 46.0 % | [facility] | | | | | | LABORATORY | | + + + + + + | MCV | 92.7 | 80.0 - 100.0 fl | [facility] | | | | | | LABORATORY | | + + + + + + | MCH | 30.5 | 27.0 - 34.0 pg | [facility] | | | | | | LABORATORY | | + + + + + + | MCHC | 33.0 | 32.0 - 35.5 | [facility] | | | | | g/dL | LABORATORY | | + + + + + + | RDW-SD | 45.9 | 37 - 53 fl | [facility] | | | | | | LABORATORY | | + + + + + + | Platelet | 288 | 150 - 400 K/uL | [facility] | | | Count | | | LABORATORY | | + + + + + + | MPV | 10.7Comment: NO NORMAL | fl | [facility] | | | | RANGE ESTABLISHED | | LABORATORY | | + + + + + + | Diff Type | AUTOMATED | | [facility] | | | | | | LABORATORY | | + + + + + + | % nRBC | 0.0 | 0 /100WBC | [facility] | | | | | | LABORATORY | | + + + + + + | % | 65.30 | % | [facility] | | | Neutrophils | | | LABORATORY | | + + + + + + | IMMATURE | 0.20 | % | [facility] | | | GRANULOCYTE | | | LABORATORY | | + + + + + + | % | 22.20 | % | [facility] | | | Lymphocytes | | | LABORATORY | | + + + + + + | Monocyte % | 9.50 | % | [facility] | | | | | | LABORATORY | | + + + + + + | Eosinophils | 2.30 | % | [facility] | | | % | | | LABORATORY | | + + + + + + | Basophils % | 0.50 | % | [facility] | | | | | | LABORATORY | | + + + + + + | Neutrophils | 5.42 | 1.90 - 7.40 | [facility] | | | , Absolute | | K/uL | LABORATORY | | + + + + + + | IMMATURE | 0.02Comment: NOTE NEW | 0.00 - 0.07 | [facility] | | | GRANS AB | REFERENCE RANGE | K/uL | LABORATORY | | + + + + + + | Absolute | 1.84 | 1.00 - 3.90 | [facility] | | | Lymphocytes | | K/uL | LABORATORY | | + + + + + + | Absolute | 0.79 | 0.00 - 0.80 | [facility] | | | Monocytes | | K/uL | LABORATORY | | + + + + + + | Eosinophils | 0.19 | 0.00 - 0.50 | [facility] | | | , Absolute | | K/uL | LABORATORY | | + + + + + + | Basophils, | 0.04Comment: Testing | 0.00 - 0.10 | [facility] | | | Absolute | performed at [facility];[address] | K/uL | LABORATORY | | | | [address];[place], [place] | | | | | | [address] | | | | + + + + + + + + | Specimen | + + | Blood | + + + + + + + | Performing | Address | City/State/Zipcode | Phone Number | | Organization | | | | + + + + + | [facility] | [address] | [place] [address] | [phone] | + + + + + Basic Metabolic Panel (03/31/2019 7:11 AM PST) + + + + + + | Component | Value | Ref Range | Performed | Pathologist | | | | | At | Signature | + + + + + + | Na | 140 | 135 - 145 | [facility] | | | | | mmol/L | LABORATORY | | + + + + + + | K | 4.0 | 3.5 - 4.9 | [facility] | | | | | mmol/L | LABORATORY | | + + + + + + | Cl | 105 | 99 - 109 mmol/L | [facility] | | | | | | LABORATORY | | + + + + + + | CO2 | 26 | 23 - 32 mmol/L | [facility] | | | | | | LABORATORY | | + + + + + + | Anion Gap | 13 | 5 - 20 mmol/L | [facility] | | | | | | LABORATORY | | + + + + + + | Glucose | 117 (H) | 65 - 99 mg/dL | [facility] | | | | | | LABORATORY | | + + + + + + | BUN | 14 | 8 - 25 mg/dL | [facility] | | | | | | LABORATORY | | + + + + + + | Creatinine | 0.72 | 0.50 - 1.00 | [facility] | | | | | mg/dL | LABORATORY | | + + + + + + | BUN/Creatin | 19 | | [facility] | | | ine Ratio | | | LABORATORY | | + + + + + + | Calcium | 9.3 | 8.5 - 10.5 | [facility] | | | | | mg/dL | LABORATORY | | + + + + + + | Estimated | >60Comment: GFR <60: | >60 | [facility] | | | GFR | CHRONIC KIDNEY DISEASE, | mL/min/1.73m2 | LABORATORY | | | | IF FOUND OVER A 3 MONTH | | | | | | PERIOD.GFR <15: KIDNEY | | | | | | FAILURE.FOR | | | | | | AMERICANS, MULTIPLY THE | | | | | | CALCULATED GFR BY | | | | | | 1.210.This eGFR is | | | | | | calculated using the | | | | | | [facility] traceable | | | | | | equation.Testing | | | | | | performed at [facility];[address] | | | | | | [facility];[place], [place] | | | | | | [address] | | | | + + + + + + + + | Specimen | + + | Blood | + + + + + + + | Performing | Address | City/State/Zipcode | Phone Number | | Organization | | | | + + + + + | [facility] | [address] | [place] [address] | [phone] | + + + + + CV EP PROCEDURE (03/31/2019 7:06 AM PST) + + | Specimen | + + | | + + + + + | Narrative | Performed At | + + + | See dictated | | | OP Report for details. | | + + + + + | Procedure Note | + + | Elvin Jamil MD - 03/31/2019 10:40 AM PST See dictated OP Report for | | details. | + + ECG 12 lead (03/31/2019 6:51 AM PST) + + + + + + | Component | Value | Ref Range | Performed | Pathologist | | | | | At | Signature | + + + + + + | VENTRICULAR | 73 | BPM | [facility] | | | RATE EKG | | | | | + + + + + + | ATRIAL RATE | 322 | BPM | [facility] | | + + + + + + | QRS | 100 | ms | [facility] | | | DURATION | | | | | + + + + + + | Q-T | 412 | ms | [facility] | | | INTERVAL | | | | | + + + + + + | Q-T | 453 | ms | [facility] | | | INTERVAL | | | | | | (CORRECTED) | | | | | + + + + + + | QRS AXIS | 18 | degrees | [facility] | | + + + + + + | T AXIS | 14 | degrees | [facility] | | + + + + + + | INTERPRETAT | Atrial flutter with | | [facility] | | | ION TEXT | variable A-V | | | | | | blockAbnormal ECG | | | | | | Confirmed by Maicol | | | | | | Flaco GILBERT ([id number]) on | | | | | | 03/31/2019 9:52:38 AM | | | | + + + [...] | + + | Persistent atrial fibrillation Atrial fibrillation | + + documented in this encounter Admitting Diagnoses + + | Diagnosis | + + | Persistent atrial fibrillation (HCC) Atrial fibrillation | + + documented in this encounter Administered Medications + +--------+ + +------+------+ | Medication Order | MAR | Action | Dose | Rate | Site | | | Action | Date | | | | + +--------+ + +------+------+ | acetaminophen (TYLENOL) tablet | Given | 04/01/19 | 1,000 mg | | | | 1,000 mg 1,000 mg, Oral, EVERY 8 | | 20 8:30 | | | | | HOURS PRN, Pain, Mild Pain, | | AM PST | | | | | Headaches, Discomfort, Starting | | | | | | | 04/01/19 at 0707 | | | | | | + +--------+ + +------+------+ +---+---+ | | | +---+---+ + +-------+ +--------+---+---+ | amiodarone (PACERONE) tablet | Given | 04/01/19 | 200 mg | | | | 200 mg 200 mg, Oral, DAILY, | | 20 8:30 | | | | | First dose on Sat03/31/19 at 1100 | | AM PST | | | | + +-------+ +--------+---+---+ +---+---+ | | | +---+---+ + +-------+ +-------+---+---+ | atenolol (TENORMIN) tablet 50 | Given | 04/01/19 | 50 mg | | | | mg 50 mg, Oral, DAILY, First | | 20 8:27 | | | | | dose on Sat04/01/19 at 0900 | | AM PST | | | | + +-------+ +-------+---+---+ +---+---+ | | | +---+---+ + +-------+ +--------+---+---+ | fentaNYL (PF) injection 25-50 | Given | 03/31/19 | 25 mcg | | | | mcg 25-50 mcg, Intravenous, | | 20 11:08 | | | | | EVERY 5 MIN PRN, Pain, Initial | | AM PST | | | | | postop medication for URGENT PAIN | | | | | | | OR ESCALATING PAIN, Starting Tue | | | | | | | 03/31/19 at 1025, For 4 doses, | | | | | | | First dose must be lowest dose. | | | | | | | Use Pasero Sedation Scale. | | | | | | | [Opioid tolerant = One week or | | | | | | | longer, cxybwf-ndz-vhtjy use of | | | | | | | at least the following DAILY | | | | | | | dose: 60mg oral morphine, 60mg | | | | | | | oral hydrocodone, 30mg oral | | | | | | | oxycodone, 8mg oral | | | | | | | hydromorphone, fentanyl patch | | | | | | | 25mcg/hr, or equivalent dose of | | | | | | | another opioid], Recovery/Phase I | | | | | | + +-------+ +--------+---+---+ +---+---+ | | | +---+---+ + +-------+ +--------+---+---+ | HYDROmorphone (DILAUDID) | Given | 03/31/19 | 0.2 mg | | | | injection 0.2-0.6 mg 0.2-0.6 mg, | | 20 11:17 | | | | | Intravenous, EVERY 5 MIN PRN, | | AM PST | | | | | Pain, Starting 03/31/19 at | | | | | | | 1025, First dose must be lowest | | | | | | | dose, can increase subsequent | | | | | | | doses by 0.2mg within dosing | | | | | | | range. If patient meets opioid | | | | | | | tolerant definition, can start | | | | | | | with 0.4mg dose. [Maximum total | | | | | | | PACU dose 2 mg] Use Pasero | | | | | | | Sedation Scale. [Opioid tolerant | | | | | | | = One week or longer, | | | | | | | rygkjh-urm-sterz use of at least | | | | | | | the following DAILY dose: 60mg | | | | | | | oral morphine, 60mg oral | | | | | | | hydrocodone, 30mg oral oxycodone, | | | | | | | 8mg oral hydromorphone, fentanyl | | | | | | | patch 25mcg/hr, or equivalent | | | | | | | dose of another opioid], | | | | | | | Recovery/Phase I | | | | | | + +-------+ +--------+---+---+ +---+---+ | | | +---+---+ + +-------+ +--------+---+---+ | lidocaine 1% injection PRN, | Given | 03/31/19 | 20 mLs | | | | Starting 03/31/19 at 0801 | | 20 8:01 | | | | | | | AM PST | | | | + +-------+ +--------+---+---+ +---+---+ | | | +---+---+ + +-------+ +------+---+---+ | ondansetron (ZOFRAN) injection | Given | 03/31/19 | 4 mg | | | | 4 mg 4 mg, Intravenous, EVERY 4 | | 20 11:00 | | | | | HOURS PRN, Nausea, Vomiting, | | AM PST | | | | | Starting 03/31/19 at 1025, | | | | | | | Recovery/Phase I | | | | | | + +-------+ +------+---+---+ + +---+ | | | + +---+ | ondansetron (ZOFRAN) injection | | | 4 mg 4 mg, Intravenous, EVERY 6 | | | HOURS PRN, Nausea, Vomiting, | | | Starting Sat03/31/19 at 1346 | | + +---+ | | | + +---+ + +-------+ + +---+---+ | oxyCODONE-acetaminophen | Given | 04/01/19 | 1 tablet | | | | (PERCOCET) 5-325 mg per tablet | | 20 1:40 | | | | | 1-2 tablet 1-2 tablet, Oral, | | AM PST | | | | | EVERY 6 HOURS PRN, Pain, Moderate | | | | | | | Pain, Starting Tu03/31/19 at | | | | | | | 1310 | | | | | | + +-------+ + +---+---+ +-------+ + +---+---+ | Given | 03/31/19 | 1 tablet | | | | | 20 2:50 | | | | | | PM PST | | | | +-------+ + +---+---+ | Given | 03/31/19 | 1 tablet | | | | | 20 1:30 | | | | | | PM PST | | | | +-------+ + +---+---+ +---+---+ | | | +---+---+ + +-------+ +-------+---+---+ | pravastatin (PRAVACHOL) tablet | Given | 03/31/19 | 20 mg | | | | 20 mg 20 mg, Oral, NIGHTLY, | | 20 9:03 | | | | | First dose on Sat03/31/19 at 2100 | | PM PST | | | | + +-------+ +-------+---+---+ +---+---+ | | | +---+---+ + +---------+ +---+---+---+ | sodium chloride 0.9% (NS) | New Bag | 03/31/19 | | | | | infusion at 10 mL/hr, | | 20 8:19 | | | | | Intravenous, CONTINUOUS, Starting | | AM PST | | | | | 03/31/19 at 0715, Pre-op | | | | | | + +---------+ +---+---+---+ +---------+ +---+ +---+ | New Bag | 03/31/19 | | 10 mL/hr | | | | 20 7:05 | | | | | | AM PST | | | | +---------+ +---+ +---+ +---+---+ | | | +---+---+ documented in this encounter
--- OUTSIDE RECORDS SUMMARY | ~2019-07-17 | XMS | Encounter Summary ---
Demographics + + + | Address | [address] | | | [place] [address] | + + + | Home Phone | | + + + | Preferred Language | Unknown | + + + | Marital Status | | + + + | Anabaptist Affiliation | Unknown | + + + | Race | Unknown | + + + | Ethnic Group | Unknown | + + + Author + + + | Author | [facility] | | | and [place] | + + + | Organization | [facility] | | | and [place] | + + + | Address | Unknown | + + + | Phone | Unavailable | + + + Support + + + + + | Name | Relationship | Address | Phone | + + + + + | Veronica Anderson | ECON | [place] | | | | | [address] | | + + + + + | Beatrice Paulson | ECON | [address] | | | | | [place] | | | | | [address] | | + + + + + Care Team Providers + +------+ + | Care Spare Hand Name | Role | Phone | + +------+ + | Venkata Pettit MD | PCP | | + +------+ + Reason for Visit + + + | Reason | Comments | + + + | Follow-up | 3 month PO | + + + Encounter Details +--------+---------+ + + + | Date | Type | Department | Care Team | Description | +--------+---------+ + + + | 04/15/ | Office | [facility] | Felipe Hernandez, | S/P lumbar fusion | | 2013 | Visit | NEUROSURGERY [address] | PA-C [address] | (Primary Dx) | | | | [address] | [place], [place] | | | | | [place], [place] | [address] | | | | | [address] | | | | | | [phone] | | | +--------+---------+ + + + [...] + + + | Blood Pressure | 133/59 | 04/15/2013 11:20 AM | | | | | PST | | + + + + + | Pulse | 64 | 04/15/2013 11:20 AM | | | | | PST | | + + + + + | Temperature | - | - | | + + + + + | Respiratory Rate | 16 | 04/15/2013 11:20 AM | | | | | PST | | + + + + + | Oxygen Saturation | - | - | | + + + + + | Inhaled Oxygen | - | - | | | Concentration | | | | + + + + + | Weight | 113.4 kg (250 lb) | 04/15/2013 11:20 AM | | | | | PST | | + + + + + | Height | 172.7 cm (5' 8") | 04/15/2013 11:20 AM | | | | | PST | | + + + + + | Body Mass Index | 38.01 | 04/15/2013 11:20 AM | | | | | PST | | + + + + + documented in this encounter Patient Instructions Patient Instructions Felipe Hernandez PA-C - 04/15/2013 12:12 PM PSTYou can stop wearing your brace. Continue with PT. See you in 3 months. X-rays are great! documented in this encounter Progress Notes Felipe Hernandez PA-C - 04/15/2013 11:36 AM PST Felipe Hernandez PA-C [address] [facility], [address] [place] [address] FAX: NEUROSURGERY SURGICAL FOLLOW-UP CHIEF COMPLAINT: Chief Complaint Patient presents with Follow-up 3 month PO HISTORY OF PRESENT ILLNESS: The patient is a 72 y.o. female that had an XLIF L2-3 and L4-5 , TLIF L4-5, and posterolateral fusion L1-[address] Smith for back pain and leg weakness ar ound 3 months ago. She returns and overall is doing well. Her back pain from before surger y and surgical pain is resolved. The patient complains of continued leg weakness which is i mproving and feels PT has been excellent. The patient has been walking as much as possible. She is not taking pain medications at this point. The patient has had no issues with her surgical site. CURRENT MEDICATIONS: Current Outpatient Prescriptions Medication Sig Dispense Refill atenolol (TENORMIN) 50 mg tablet Cholecalciferol (VITAMIN D3 PO) Take 4,000 Units by mouth Daily. Flaxseed, Linseed, (FLAXSEED OIL PO) Take by mouth Daily. GABAPENTIN PO Take by mouth. 900mg qam and 900mg qpm Magnesium 250 MG TABS Take 250 mg by mouth Daily. ALLERGIES: Allergies Allergen Reactions Pregabalin SOCIAL HISTORY: The patient reports that she has never smoked. She has never used smokeless tobacco. She r eports that she drinks alcohol. She reports that she does not use illicit drugs. INTERIM PHYSICAL EXAMINATION: Blood pressure 133/59, pulse 64, resp. rate 16, height 1.727 m (5' 8"), weight 113.399 kg ( 250 lb). Body mass index is 38.02 kg/(m^2). GENERAL: Kassie Bear is in no acute distress with unlabored respirations. SPINE: The patient s incisions are healing well without drainage, significant erythema, o r discharge EXTREMITIES: No lower extremity edema. NEUROLOGICAL EXAMINATION: MENTAL STATUS: The patient is awake, alert, and oriented. She follows simple and complex commands MOTOR EXAM: Motor strength is 4/5. This is unchanged from the preoperative exam. SENSORY EXAM: The sensory examination improved from the preoperative exam. Back pain is im proved. RADIOGRAPHIC REVIEW: The patient s postoperative x-rays show stable instrumentation and alignment and were rev iewed with the patient today. There have been no interval changes since the immediate posto perative films. Complete fusion has not yet occurred, but this is normal and would not be e xpected at this time. ASSESSMENT: S/P L1-5 fusion: Encounter Diagnosis Name Primary? S/P lumbar fusion Yes Past Medical History Diagnosis Date Sacroiliitis (HCC) BACK PAIN, LUMBAR Spinal stenosis Trochanteric bursitis Degenerative disc disease Obesity Hypertension Hypercholesterolemia Hx of spinal fusion Myofascial pain syndrome Paresthesia Carpal tunnel syndrome PLAN: Overall, the patient is doing fairly well. Her strength is improving with PT and she is co ntinuing on that regime. She no longer is required to wear a brace. Continue with the bone stimulator. I would like the patient to advance slowly with this process and discussed this at length d shelia today's visit. I would also like the patient to continue with postoperative rehabilit ation and to advance with therapy as tolerated. I am hoping to see improvement over the coming weeks to months and plan to continue to foll ow this patient. I spent 30 minutes in visit with Kassie Bear today with the majority of time spent coun selling the patient on her recovery and coordinating her future care. The patient will foll ow-up with me in around 12 weeks for re-evaluation with x-rays. ELECTRONICALLY SIGNED BY: Felipe Hernandez PA-C, 04/15/2013 11:36 documented in thi s encounter Plan of Treatment +--------+---------+ + + + | Date | Type | Specialty | Care Team | Description | +--------+---------+ + + + | 10/06/ | Office | Cardiology | Elvin Jamil | | | 2019 | Visit | | MD [address] | | | | | | [facility] | | | | | | [place] | | | | | | [address] | | | | | | | | +--------+---------+ + + + documented as of this encounter Results XR Lumbar Spine 2 or 3 Vw (07/17/2013 9:57 AM PDT) + + | Specimen | + + | | + + + + + | Narrative | Performed At | + + + | TWO VIEWS LUMBAR SPINE 07/17/2013 9:57 AM CLINICAL HISTORY: s/p | MISCELANIOUS | | lumbar fusion COMPARISON: LUMBAR RADIOGRAPHS APRIL 15, 2013 AND | LAB | | MULTIPLE PREVIOUS RADIOGRAPHS FINDINGS: Five non rib-bearing, | | | lumbar type vertebrae are visible. Posterior mari and pedicle screw | | | fusion hardware extending from L1 through L5 and interspinous fusion | | | hardware at L3-4 remain in similar, satisfactory position and | | | alignment. Absence of a left-sided pedicle screw at L3 is again | | | noted. Interbody fusion prostheses are present at the operated | | | levels as well, excepting the L1-2 level, and demonstrate similar | | | position. Mild subsidence of the inferior L3 vertebral endplate | | | persists. Lumbar vertebral height is otherwise maintained, without | | | suspicion for fracture. There is similar mild anterolisthesis at | | | L4-5. The sacroiliac joints, imaged sacrum, bony pelvis and lower | | | ribs are unremarkable. Surgical clips again project at the level of | | | the gallbladder fossa. IMPRESSION - 1. STABLE, SATISFACTORY | | | CHANGES OF OPERATIVE FUSION EXTENDING FROM L1 THROUGH L5. | | | Dictated and Signed by: Andreas Starr MD Electronically signed: | | | 07/17/2013 11:54 AM | | + + + + + | Procedure Note | + + | Bhavin, Rad Results In - 07/17/2013 11:57 AM PDT TWO VIEWS LUMBAR SPINE 07/17/2013 9:57 AM | | | | CLINICAL HISTORY: s/p lumbar fusion | | | | COMPARISON: LUMBAR RADIOGRAPHS APRIL 15, 2013 AND MULTIPLE PREVIOUS RADIOGRAPHS | | | | FINDINGS: Five non rib-bearing, lumbar type vertebrae are visible. Posterior mari | | and pedicle screw fusion hardware extending from L1 through L5 and interspinous | | fusion hardware at L3-4 remain in similar, satisfactory position and alignment. | | Absence of a left-sided pedicle screw at L3 is again noted. Interbody fusion | | prostheses are present at the operated levels as well, excepting the L1-2 level, | | and demonstrate similar position. Mild subsidence of the inferior L3 vertebral | | endplate persists. Lumbar vertebral height is otherwise maintained, without | | suspicion for fracture. There is similar mild anterolisthesis at L4-5. The | | sacroiliac joints, imaged sacrum, bony pelvis and lower ribs are unremarkable. | | Surgical clips again project at the level of the gallbladder fossa. | | | | IMPRESSION - | | | | 1. STABLE, SATISFACTORY CHANGES OF OPERATIVE FUSION EXTENDING FROM L1 THROUGH | | L5. | | | | Dictated and Signed by: Andreas Starr MD | | Electronically signed: 07/17/2013 11:54 AM | + + + +---------+ + + | Performing | Address | City/State/Zipcode | Phone Number | | Organization | | | | + +---------+ + + | [facility] | | | [phone] | + +---------+ + + | [facility] LAB | | | [phone] | + +---------+ + + documented in this encounter Visit Diagnoses + + | Diagnosis | + + | S/P lumbar fusion - Primary Arthrodesis status | + + documented in this encounter
--- OUTSIDE RECORDS SUMMARY | ~2019-07-17 | XMS | Encounter Summary ---
Demographics + + + | Address | [address] | | | [place] [address] | + + + | Home Phone | | + + + | Preferred Language | Unknown | + + + | Marital Status | | + + + | Anglican Affiliation | Unknown | + + + | Race | Unknown | + + + | Ethnic Group | Unknown | + + + Author + + + | Author | [facility] | | | and [place] | + + + | Organization | [facility] | | | and [place] | + + + | Address | Unknown | + + + | Phone | Unavailable | + + + Support + + + + + | Name | Relationship | Address | Phone | + + + + + | Veronica Anderson | ECON | [place] | | | | | [address] | | + + + + + | Beatrice Paulson | ECON | [address] | | | | | [place] | | | | | [address] | | + + + + + Care Team Providers + +------+ + | Care Crusher Foreman Name | Role | Phone | + +------+ + | Venkata Pettit MD | PCP | | + +------+ + Encounter Details +--------+ + + + + | Date | Type | Department | Care Team | Description | +--------+ + + + + | 04/03/ | Hospital | [facility] | Jb J Carlos | | | 2012 - | Encounter | MED CTR XRAY [address] | MD [address] | | | | | Leonila Heller | [facility] [address] | | | 04/[birth year]/ | | [place] [address] | [place] [address] | | | 2012 | | [phone] | [phone] | | | | | | | [...] | | | | | [facility] | | | | | | [place] | | | | | | [address] | | | | | | | [...] Performed At | + + + | [facility] | [place] | | Department [address] [facility] [place] | [facility] | | [ rep [address]] [ rep [facility] | | st zip] Signed | - IMAGING | | | | | Patient Name: KASSIE BEAR Physician: | | | CHAP.20 : 1940 Age: 71 Sex: F Unit #: [id number] | | | Exam Date: 04/03/12 Location: [facility] | | | Report #: [id number] Page: | | | %(RAD)RES..mtdd.print.filter("pg") of %(RAD) | | | RES..mtdd.print.filter("tpg") | | | | | | Accession Number: [id number] | | | CTA OF THE NECK [...] Transcribed Date/Time: | | | 04/03/2012 17:46 Harpooner: | | | <<Signature on File>> | | | Domingo | | | MD Josr04/03/12 0792 <Electronically signed by Domingo Ovalles MD> | | | Domingo Ovalles MD 04/03/12 5020 Harpooner: Sujatha | | | [id number]/21/[id number] 0976 J Carlos Muhammad MD | | | | | + + + + + + + + | Performing | Address | City/State/Zipcode | Phone Number | | Organization | | | | + + + + + | [facility] | [address] | [place] | [phone] | | [facility] | | [address] | | | - IMAGING | | | | + + + + + documented in this encounter Visit Diagnoses Not on filedocumented in this encounter
--- OUTSIDE RECORDS SUMMARY | ~2019-07-17 | XMS | Encounter Summary ---
Demographics + + + | Address | [address] | | | [place] [address] | + + + | Home Phone | | + + + | Preferred Language | Unknown | + + + | Marital Status | | + + + | Religion Affiliation | Unknown | + + + | Race | Unknown | + + + | Ethnic Group | Unknown | + + + Author + + + | Author | [facility] | | | and [place] | + + + | Organization | [facility] | | | and [place] | + + + | Address | Unknown | + + + | Phone | Unavailable | + + + Support + + + + + | Name | Relationship | Address | Phone | + + + + + | Veronica Anderson | ECON | [place] | | | | | [address] | | + + + + + | Beatrice Paulson | ECON | [address] | | | | | [place] | | | | | [address] | | + + + + + Care Team Providers + +------+ + | Care Qualitative Executive Researcher Name | Role | Phone | + +------+ + | Venkata Pettit MD | PCP | | + +------+ + Encounter Details +--------+ + + + + | Date | Type | Department | Care Team | Description | +--------+ + + + + | 04/15/ | Hospital | [facility] | Wilton Smith, | Status post lumbar | | 2013 | Encounter | MED CTR XRAY [address] | DO [address] | spinal fusion | | | | [place] | [address] [place], [place] | | | | | [place] [address] | [id number] | | | | | [phone] | | | +--------+ + + + [...] + + + +---------+ + + | Flaxseed, Linseed, | Take by mouth | | 0 | | | | (FLAXSEED OIL PO) | Daily. | | | | 5 | + + + +---------+ + + | GABAPENTIN PO | Take by mouth. | | 0 | | | | | 900mg qam and 900mg | | | | 5 | | | qpm | | | | | + + + +---------+ + + documented as of this encounter Plan of Treatment +--------+---------+ + + + | Date | Type | Specialty | Care Team | Description | +--------+---------+ + + + | 10/06/ | Office | Cardiology | Elvni Jamil | | | 2019 | Visit | | MD [address]ji [address] | | | | | | [address] [facility] | | | | | | [place] | | | | | | [id number] | | | | | | | | +--------+---------+ + + + documented as of this encounter Procedures + +--------+ + + + | Procedure Name | Priori | Date/Time | Associated Diagnosis | Comments | | | ty | | | | + +--------+ + + + | XR LUMBAR SPINE 2 OR | Routin | 04/15/2013 | Status post lumbar | Results for this | | 3 VW | e | 12:52 PM | spinal fusion | procedure are in the | | | | PST | | results section. | + +--------+ + + + documented in this encounter Results XR Lumbar Spine 2 or 3 Vw (04/15/2013 12:52 PM PST) + + | Specimen | + + | | + + + + + | Narrative | Performed At | + + + | [facility] | [place] | | Department [address] [facility], [place] | [facility] | | [ rep [address]] [ rep [facility] | | st zip] Signed | - IMAGING | | | | | Patient Name: KASSIE BEAR Physician: | | | SYL. : 1940 Age: 72 Sex: F Unit #: [id number] | | | Exam Date: 04/15/13 Location: [facility] | | | Report #: [id number] Page: | | | %(RAD)RES..mtdd.print.filter("pg") of %(RAD) | | | RES..mtdd.print.filter("tpg") | | | | | | Accession Number: [id number] | | | LUMBAR SPINE LIMITED CLINICAL HISTORY: STATUS POST | | | FUSION. COMPARISON: Exams dating to January 14, 2013. | | | FINDINGS: Frontal and lateral views of the lumbar spine. | | | Fusion hardware is present from L1 through L5. | | | Transpedicular screws and vertical rods are intact. Spinal alignment | | | is stable. Interbody graft markers are present at L2-3, L3-4, and | | | L4-5. Their positioning and orientation is unchanged. Posterior | | | spinous process plate is present at L3-4, unchanged. Soft tissues | | | are unremarkable. No interval compression deformities. | | | IMPRESSION: 1. FUSION OF L1 THROUGH L5 WITHOUT EVIDENCE FOR | | | INTERVAL COMPLICATION. Dictated Date/Time: 04/15/2013 | | | 12:52 Transcribed Date/Time: 04/15/2013 13:01 | | | Engineering Patternmaker: <<Signature on File>> | | | | | | Mando Yang MD04/15/13 6105 <Electronically signed by Mando Duncan | | | Celia GILBERT> Mando Yang MD 04/15/13 7714 | | | Engineering Patternmaker: [email or web address] [id number]/05/14 1673 | | | Wilton Smith DO | | + + + + + + + + | Performing | Address | City/State/Zipcode | Phone Number | | Organization | | | | + + + + + | [facility] | [address] | [place] | [phone] | | [facility] | | [address] | | | - IMAGING | | | | + + + + + documented in this encounter Visit Diagnoses + + | Diagnosis | + + | Status post lumbar spinal fusion Arthrodesis status | + + documented in this encounter
--- OUTSIDE RECORDS SUMMARY | ~2019-07-17 | XMS | Encounter Summary ---
Demographics + + + | Address | [address] | | | [place] [address] | + + + | Home Phone | | + + + | Preferred Language | Unknown | + + + | Marital Status | | + + + | Faith Affiliation | Unknown | + + + | Race | Unknown | + + + | Ethnic Group | Unknown | + + + Author + + + | Author | [facility] | | | and [place] | + + + | Organization | [facility] | | | and [place] | + + + | Address | Unknown | + + + | Phone | Unavailable | + + + Support + + + + + | Name | Relationship | Address | Phone | + + + + + | Veronica Anderson | ECON | [place] | | | | | [address] | | + + + + + | Beatrice Paulson | ECON | [address] | | | | | [place] | | | | | [address] | | + + + + + Care Team Providers + +------+ + | Care Well Logging Captain Name | Role | Phone | + +------+ + | Venkata Pettit MD | PCP | | + +------+ + Reason for Visit Service/Procedure (Routine) +--------+--------+ + + + + | Status | Reason | Specialty | Diagnoses / | Referred By | Referred To | | | | | Procedures | Contact | Contact | +--------+--------+ + + + + | Closed | | Radiology | Diagnoses | | [facility] | | | | | Cervical | Stephan, | [address] | | | | | radiculopath | Olayinka Duncan MD | [place], | | | | | y | [address] | [place] | | | | | Procedures | [address] | [address] | | | | | OR NJX | [place], [place] | Phone: | | | | | DX/THER SBST | [address] | [phone] | | | | | | Phone: | Fax: | | | | | EPIDURAL/SUB | [phone] | [phone] | | | | | CHRISTIANO | Fax: | | | | | | CERV/THORACI | [phone] | | | | | | C OR | | | | | | | TRIAMCINOLON | | | | | | | E ACET INJ | | | | | | | NOS, 10 MG | | | | | | | OR NJX | | | | | | | DX/THER SBST | | | | | | | INTRLMNR | | | | | | | CRV/THRC | | | | | | | W/IMG GDN | | | | | | | appt 02/26- | | | | | | | C7-T1 ILESI | | | | | | | left of | | | | | | | midline | | | +--------+--------+ + + + + Encounter Details +--------+ + + + + | Date | Type | Department | Care Team | Description | +--------+ + + + + | 03/08/ | Hospital | [facility] | Olayinka Rothman | Cervical | | 2017 | Encounter | MED CTR XRAY [address] | T, [address] | radiculopathy | | | | [place] | [place], [place] | | | | | [place] [address] | [id number] | | | | | [phone] | | | | | | | Customer Sales RepresentativePaulino | | | | | | margarito pimentel | | +--------+ + + + + [...] this encounter Last Filed Vital Signs + +---------+ + + | Vital Sign | Reading | Time Taken | Comments | + +---------+ + + | Blood Pressure | 184/81 | 03/08/2016 1:35 PM | | | | | PST | | + +---------+ + + | Pulse | 66 | 03/08/2016 1:35 PM | | | | | PST | | + +---------+ + + | Temperature | - | - | | + +---------+ + + | Respiratory Rate | - | - | | + +---------+ + + | Oxygen Saturation | - | - | | + +---------+ + + | Inhaled Oxygen | - | - | | | Concentration | | | | + +---------+ + + | Weight | - | - | | + +---------+ + + | Height | - | - | | + +---------+ + + | Body Mass Index | - | - | | + +---------+ + + documented in this encounter Medications at Time [...] + + + +---------+ + + | BABY ASPIRIN PO | Take 81 mg by mouth | | 0 | | | | | Daily. | | | | 9 | + + + +---------+ + + | NAPROXEN PO | Take 220 mg by mouth | | 0 | | | | | Daily. Patient | | | | 9 | | | taking 2 tablets | | | | | | | daily. | | | | | + + + +---------+ + + documented as of this encounter Plan of Treatment +--------+---------+ + + + | Date | Type | Specialty | Care Team | Description | +--------+---------+ + + + | 10/06/ Office | Cardiology | Elvin Jamil | | | 2019 | Visit | | MD [address] | | | | | | [facility] | | | | | | [place] | | | | | | [address] | | | | | | | | +--------+---------+ + + + documented as of this encounter Procedures + +--------+ + + + | Procedure Name | Priori | Date/Time | Associated Diagnosis | Comments | | | ty | | | | + +--------+ + + + | FL EPIDURAL STEROID | Routin | 03/08/2016 | Cervical | Results for this | | INJ CERVICAL | e | 1:05 PM | radiculopathy | procedure are in the | | THORACIC | | PST | | results section. | | INTERLAMINAR | | | | | + +--------+ + + + documented in this encounter Results FL ADE Cervical Thoracic Interlaminar (03/08/2016 1:05 PM PST) + + | Specimen | + + | | + + + + + | Narrative | Performed At | + + + | 03/08/2016 CERVICAL INTERLAMINAR EPIDURAL STEROID INJECTION | [facility] | | CLINICAL HISTORY: ICD-10 CODE M54.12 CERVICAL RADICULOPATHY Kassie | [facility] | | Eva Bear presents to the fluoroscopy suite for [facility] | | fluoroscopically-guided C7-T1 interlaminar epidural steroid injection, | - IMAGING | | left of midline, as part of conservative management for chronic | | | pain with cervical radiculopathy and degenerative disk disease. | | | After informed consent was obtained, the patient lay in the prone | | | position on the fluoroscopy table. The area was identified under | | | fluoroscopic guidance. The area was prepped and draped in sterile | | | fashion. A 25-gauge, 1.5-inch needle was inserted into this region | | | and approximately 3 mL of buffered 1% lidocaine was infused. Then a | | | 22-gauge epidural needle was advanced into the epidural space at the | | | C7-T1 level. Confirmation into the epidural space was obtained | | | with loss of resistance, as well as infusion of approximately 1 mL | | | of Isovue contrast which showed epidural flow. Then, a combination | | | of 2.5 mL of normal saline and 1.5 mL of 6 mg/mL Celestone was | | | infused. The patient tolerated the procedure well without | | | complications. Pre- and post-procedure blood pressures were stable. | | | The patient was given verbal as well as written followup | | | instructions. Prior to the start of the procedure, the following | | | were performed and verified, including correct patient identity, | | | correct site/side marked and visible, agreement on the procedure to | | | be done, correct patient positioning and an accurate procedure | | | consent form. Any safety precautions based on clinical history | | | and/or medication use have been addressed. I personally performed | | | the procedure above. Estimated blood loss: Minimal | | | Complications: None Findings: As expected Anesthesia: Local 1% | | | Lidocaine | | + + + + + + + + | Performing | Address | City/State[facility] | Phone Number | | Organization | | | | + + + + + | [facility] | [address] | [place] | [phone] | | [facility] | | [address] | | | - IMAGING | | | | + + + + + documented in this encounter Visit Diagnoses + + | Diagnosis | + + | Cervical radiculopathy Brachial neuritis or radiculitis nos | + + documented in this encounter Administered Medications + +--------+ +------+------+------+ | Medication Order | MAR | Action | Dose | Rate | Site | | | Action | Date | | | | + +--------+ +------+------+------+ | betamethasone (CELESTONE | Given | 03/08/19 | 9 mg | | | | SOLUSPAN) injection 9 mg 9 mg, | | 17 1:15 | | | | | Other, ONCE, Dilcia 03/08/16 at 1315, | | PM PST | | | | | For 1 dose, Shakarla well. Not for | | | | | | | IV use., | | | | | | + +--------+ +------+------+------+ +---+---+ | | | +---+---+ + +-------+ +-------+---+---+ | iohexol (OMNIPAQUE 300) 300 | Given | 03/08/19 | 4 mLs | | | | mg/mL injection 4 mL 4 mL, | | 17 1:13 | | | | | Other, ONCE, [facility] 03/08/16 at 1330, | | PM PST | | | | | For 1 dose | | | | | | + +-------+ +-------+---+---+ +---+---+ | | | +---+---+ + +-------+ +-------+---+---+ | lidocaine 1% injection 4 mL 4 | Given | 03/08/19 | 4 mLs | | | | mL, Other, ONCE, [facility] 03/08/16 at | | 17 1:11 | | | | | 1315, For 1 dose | | PM PST | | | | + +-------+ +-------+---+---+ +---+---+ | | | +---+---+ + +-------+ +-------+---+---+ | sodium bicarbonate (NEUT) 4% | Given | 03/08/19 | 2 mLs | | | | injection 2 mL 2 mL, | | 17 1:11 | | | | | Infiltration, ONCE, [facility] 03/08/16 | | PM PST | | | | | at 1315, For 1 dose | | | | | | + +-------+ +-------+---+---+ +---+---+ | | | +---+---+ documented in this encounter"
--- OUTSIDE RECORDS SUMMARY | ~2019-07-17 | XMS | Encounter Summary ---
Demographics + + + | Address | [address] | | | [place] [address] | + + + | Home Phone | | + + + | Preferred Language | Unknown | + + + | Marital Status | | + + + | Pentecostalism Affiliation | Unknown | + + + | Race | Unknown | + + + | Ethnic Group | Unknown | + + + Author + + + | Author | [facility] | | | and [place] | + + + | Organization | [facility] | | | and [place] | + + + | Address | Unknown | + + + | Phone | Unavailable | + + + Support + + + + + | Name | Relationship | Address | Phone | + + + + + | Veronica Anderson | ECON | [place] | | | | | [address] | | + + + + + | Beatrice Paulson | ECON | [address] | | | | | [place] | | | | | [address] | | + + + + + Care Team Providers + +------+ + | Care Sack Keeper Name | Role | Phone | + +------+ + | Venkata Pettit MD | PCP | | + +------+ + Encounter Details +--------+ + + + + | Date | Type | Department | Care Team | Description | +--------+ + + + + | 01/06/ | Orders Only | [facility] | Felipe Hernandez, | Status post lumbar | | 2012 | | NEUROSURGERY [address] | PA-C [address] | spinal fusion | | | | [address] | [facility] [place] | (Primary Dx) | | | | [place] | [address] | | | | | [address] | | | | | | [phone] | | | +--------+ + + + [...] | | | | | Lizzie Garcia [facility] | | | | | | [place] | | | | | | [address] | | | | | | | | +--------+---------+ + + + documented as of this encounter Visit Diagnoses + + | Diagnosis | + + | Status post lumbar spinal fusion - Primary Arthrodesis status | + + documented in this encounter"
--- OUTSIDE RECORDS SUMMARY | ~2019-07-17 | XMS | Encounter Summary ---
Demographics + + + | Address | [address] | | | [place] [address] | + + + | Home Phone | | + + + | Preferred Language | Unknown | + + + | Marital Status | | + + + | Faith Affiliation | Unknown | + + + | Race | Unknown | + + + | Ethnic Group | Unknown | + + + Author + + + | Author | [facility] | | | and [place] | + + + | Organization | [facility] | | | and [place] | + + + | Address | Unknown | + + + | Phone | Unavailable | + + + Support + + + + + | Name | Relationship | Address | Phone | + + + + + | Veronica Anderson | ECON | [place] | | | | | [address] | | + + + + + | Beatrice Paulson | ECON | [address] | | | | | [place] | | | | | [address] | | + + + + + Care Team Providers + +------+ + | Care Equine Manager Name | Role | Phone | + [...] | | | | Diagnoses | | Loulou, | | | | | 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 | | [place] [address] | | | | | | | Phone: | | | | | | | [phone] | | | | | | | Fax: | | | | | | | [phone] | +--------+--------+ + + + + Encounter Details +--------+ + + + + | Date | Type | Department | Care Team | Description | +--------+ + + + + | 02/20/ | Anesthesia | [facility] | Wilton Hastings | | | 2020 | Event | CENTER CV INTRA OP | [address] | | | | | [address] | [address] | | | | | [place], [place] | [place] [address] | | | | | [address] | [phone] | | | | | [phone] | | | +--------+ + + + + Anesthesia Record + + + + + | Procedure Name | Responsible | Anesthesia Start | Anesthesia Stop Time | | | Anesthesiologist | Time | | + + + + + | CV EP CARDIOVERSION | Wilton Grimes | 02/20/19832 | 02/20/19838 | | (N/A ) | [facility] | | | + + + + + +----+---+ + + | Da | T | Event | Comment | | te | i | | | | | m | | | | | e | | | +----+---+ + + | 01 | 0 | | | | /1 | 8 | | | | 0/ | 3 | | | | 20 | 3 | | | | 20 | | | | +----+---+ + + | | 0 | An Start | Reassessment prior to anesthesia induction/procedure. | | | 8 | | | | | 3 | | | | | 3 | | | +----+---+ + + | | 0 | First | | | | 8 | Inc/Proc St | | | | 3 | | | | | 4 | | | +----+---+ + + | | 0 | An | | | | 8 | Induction | | | | 3 | | | | | 5 | | | +----+---+ + + | | 0 | Anesthesia | | | | 8 | Ready | | | | 3 | | | | | 7 | | | +----+---+ + + | | 0 | an stop | | | | 8 | data | | | | 3 | | | | | 9 | | | +----+---+ + + | | 0 | An Stop | Patient handed off to recovery nurse. | | | 3 | | | | | 9 | | | +----+---+ + + +------+ | Meds | +------+ + +--------+ | Name | Total | + +--------+ | lidocaine 2% | 60 mg | + +--------+ | propofol | 50 mg | + +--------+ | sodium chloride 0.9% (NS) | 100 mL | | infusion | | + +--------+ + + | Name | + + | Secondary O2 Flow Rate | + + + + | No blood administrations on file. | + + +-------+ + +---------+ | Type | Details | Placement | Removal | +-------+ + +---------+ | Wound | 04/04/18; 0800; N; Incision (ELSA | 04/04/18 0800 by | | | | drain site); Left; upper, medial; | Dasia Martinez, | | | | thigh | RN | | +-------+ + +---------+ documented in this encounter Social History + [...] [address] | | | | | | [facility] | | | | | | [place] | | | | | | [address] | | | | | | | | +--------+---------+ + + + documented as of this encounter Visit Diagnoses Not on filedocumented in this encounter Administered Medications + +--------+ +-------+------+------+ | Medication Order | MAR | Action | Dose | Rate | Site | | | Action | Date | | | | + +--------+ +-------+------+------+ | lidocaine (PF) 2% injection | Given | 02/20/19 | 60 mg | | | | Intravenous, PRN, Starting Fri | | 20 8:35 | | | | | 02/20/19 at 0835, Anesthesia | | AM PST | | | | | Intra-op | | | | | | + +--------+ +-------+------+------+ +---+---+ | | | +---+---+ + +-------+ +-------+---+---+ | propofol (DIPRIVAN) injection | Given | 02/20/19 | 50 mg | | | | Intravenous, PRN, Starting Fri | | 20 8:35 | | | | | 02/20/19 at 0835, Anesthesia | | AM PST | | | | | Intra-op | | | | | | + +-------+ +-------+---+---+ +---+---+ | | | +---+---+ + +---------+ +---+---+---+ | sodium chloride 0.9% (NS) | New Bag | 02/20/19 | | | | | infusion at 10 mL/hr, | | 20 8:33 | | | | | Intravenous, CONTINUOUS, Starting | | AM PST | | | | | 02/20/19 at 0800, Pre-op | | | | | | + +---------+ +---+---+---+ +---+---+ | | | +---+---+ documented in this encounter"
--- OUTSIDE RECORDS SUMMARY | ~2019-07-17 | XMS | Encounter Summary ---
Demographics + + + | Address | [address] | | | [place] [address] | + + + | Home Phone | | + + + | Preferred Language | Unknown | + + + | Marital Status | | + + + | Jain Affiliation | Unknown | + + + | Race | Unknown | + + + | Ethnic Group | Unknown | + + + Author + + + | Author | [facility] | | | and [place] | + + + | Organization | [facility] | | | and [place] | + + + | Address | Unknown | + + + | Phone | Unavailable | + + + Support + + + + + | Name | Relationship | Address | Phone | + + + + + | Veronica Anderson | ECON | [place] | | | | | [address] | | + + + + + | Beatrice Paulson | ECON | [address] | | | | | [place] | | | | | [address] | | + + + + + Care Team Providers + +------+ + | Care Sand Analyst Name | Role | Phone | + +------+ + | Venkata Pettit MD | PCP | | + +------+ + Encounter Details +--------+ + + + + | Date | Type | Department | Care Team | Description | +--------+ + + + + | 12/20/ | Orders Only | [facility] | Wilton Smith, | Back pain, | | 2015 | | NEUROSURGERY [address] | DO [address] | unspecified back | | | | [address] | [address] [place], [place] | pain laterality, | | | | [place], [place] | [address] | unspecified location | | | | [address] | | (Primary Dx); | | | | [phone] | | Status post lumbar | | | | | | spinal fusion | +--------+ + + + + Social [...] | 10/06/ | Office | Cardiology | Loulou, Elvin | | | 2020 | Visit | | MD [address] | | | | | [facility] | | | | | | [place] | | | | | | [address] | | | | | | | | +--------+---------+ + + + documented as of this encounter Results XR Lumbar Spine 4 + Vw (01/20/2015 2:48 PM PST) + + | Specimen | + + | | + + + + + | Narrative | Performed At | + + + | EXAM: XR LUMBAR SPINE 4 + VW dated 01/20/2015 2:19 PM | [facility] | | HISTORY:back pain; history of lumbar fusion COMPARISON: Lumbar | [facility] | | spine radiographs dating to February 13, 2013. FINDINGS:4 views of | [facility] | | the lumbar spine. Posterior and interbody fusion changes from L1 | - IMAGING | | through L5. The hardware remains intact. No change in position of | | | the interbody graft markers from L2-L3 through L4-L5. No change in | | | spinal alignment. No abnormal translation with flexion or | | | extension. Spinous process plate is present at L3-L4. Stable | | | spondylosis at L5-S1. IMPRESSION - Stable fusion related | | | changes Dictated and Signed by: Mando Yang MD | | | Electronically signed: 01/20/2015 4:19 PM | | + + + + + | Procedure Note | + + | Bhavin, Rad Results In - 01/20/2015 4:22 PM PST EXAM: XR LUMBAR SPINE 4 + VW dated | | 01/20/2015 2:19 PMHISTORY:back pain; history of lumbar fusionCOMPARISON: Lumbar spine | | radiographs dating to February 13, 2013.FINDINGS:4 views of the lumbar spine. Posterior | | and interbody fusion changesfrom L1 through L5. The hardware remains intact. No change | | in position of theinterbody graft markers from L2-L3 through L4-L5. No change in | | spinalalignment. No abnormal translation with flexion or extension. Spinous | | processplate is present at L3-L4. Stable spondylosis at L5-S1.IMPRESSION -Stable fusion | | related changesDictated and Signed by: Mando Yang MD Electronically signed: | | 01/20/2015 4:19 PM | |alignment. No abnormal translation with flexion or extension. Spinous process | |plate is present at L3-L4. Stable spondylosis at L5-S1. | | | |IMPRESSION - | | | |Stable fusion related changes | | | |Dictated and Signed by: Mando Yang MD | | Electronically signed: 01/20/2015 4:19 PM | + + + + + + + | Performing | Address | City/State/Zipcode | Phone Number | | Organization | | | | + + + + + | [facility] | [address] | [place] | [phone] | | [facility] | | [address] | | | - IMAGING | | | | + + + + + documented in this encounter Visit Diagnoses + + | Diagnosis | + + | Back pain, unspecified back pain laterality, unspecified location - Primary | + + | Status post lumbar spinal fusion Arthrodesis status | + + documented in this encounter"
--- OUTSIDE RECORDS SUMMARY | ~2019-07-17 | XMS | Encounter Summary ---
Demographics + + + | Address | [address] | | | [place] [address] | + + + | Home Phone | | + + + | Preferred Language | Unknown | + + + | Marital Status | | + + + | Christian Affiliation | Unknown | + + + | Race | Unknown | + + + | Ethnic Group | Unknown | + + + Author + + + | Author | [facility] | | | and [place] | + + + | Organization | [facility] | | | and [place] | + + + | Address | Unknown | + + + | Phone | Unavailable | + + + Support + + + + + | Name | Relationship | Address | Phone | + + + + + | Veronica Anderson | ECON | [place] | | | | | [phone] | | + + + + + | Beatrice Paulson | ECON | [address] | | | | | [place] | | | | | [phone] | | + + + + + Care Team Providers + +------+ + | Care Housing Relocation Name | Role | Phone | + +------+ + | Parvez Vail MD | PCP | | + +------+ + Reason for Visit + + + | Reason | Comments | + + + | Leg Pain | L leg pain. | + + + Auth/Cert +--------+--------+ + + + + | [...] | | | | | | sm ([facility]) | | | | | | | Essential | | | | | | | hypertension | | | | | | | Chronic | | | | | | | atrial | | | | | | | fibrillation | | | | | | | ([facility]) | | | | | | | Decreased | | | | | | | hemoglobin | | | | | | | Pseudoaneury | | | | | | | sm following | | | | | | | procedure | | | | | | | ([facility]) | | | | | | | Hematoma of | | | | | | | left thigh, | | | | | | | initial | | | | | | | encounter | | | | | | | | | | | | | | | | | +--------+--------+ + + + + Encounter Details +--------+---------+ + + + | Date | Type | Department | Care Team | Description | +--------+---------+ + + + | 04/07/ | Surgery | [facility] | Elvin Jamil | CV EP CARDIOVERSION | | 2019 | | CENTER CV INTRA OP | MD [address] | | | | | [address] | [facility] | | | | | [place], [place] | [place], [place] | | | | | [address] | [address] | | | | | [phone] | | | +--------+---------+ + + + [...] + + + | Blood Pressure | 116/56 | 04/10/2019 8:01 AM | | | | | PST | | + + + + + | Pulse | 68 | 04/10/2019 8:01 AM | | | | | PST | | + + + + + | Temperature | 36.7 C (98.1 F) | 04/10/2019 8:01 AM | | | | | PST | | + + + + + | Respiratory Rate | 18 | 04/10/2019 8:01 AM | | | | | PST | | + + + + + | Oxygen Saturation | 95% | 04/10/2019 8:01 AM | | | | | PST | | + + + + + | Inhaled Oxygen | - | - | | | Concentration | | | | + + + + + | Weight | 127.9 kg (281 lb | 04/10/2019 4:26 AM | | | | 15.5 oz) | PST | | + + + + + | Height | 172.7 cm (5' 8") | 04/03/2019 10:25 PM | | | | | PST | | + + + + + | Body Mass Index | 42.87 | 04/03/2019 10:25 PM | | | | | PST | | + + + + + documented in this encounter Discharge Summaries Richard Buchanan MD - 04/10/2019 8:50 AM PST [facility] Service: Hospitalist Discharge Summary Date of Admission: 04/03/2019 Date of Discharge: 04/10/2019 Discharge Provider: Richard Buchanan MD Discharge Diagnoses: Principal Problem: Hematoma of left thigh Active Problems: Hypertension Acute pain Symptomatic anemia Atrial fibrillation, chronic Elevated troponin Bleeding Pseudoaneurysm Decreased hemoglobin Chronic atrial fibrillation Essential hypertension Pseudoaneurysm following procedure Acute blood loss anemia Resolved Problems: * No resolved hospital problems. * BRIEF HISTORY OF PRESENTATION: Most of information copied from Dr. montiel on his discharge summary as dictated the discha rge summary on April 09. Kassie Bear is a 78 y.o. female who who underwent ablation done by Dr. Busby on she. She was discharged home but returned to the ED on Apr 02 complaining of l eft thigh hematoma. She developed hemorrhagic anemia hemoglobin dropping down to 8, vascula r surgery was consulted. sSe was taken to the OR, and was found to have pseudoaneurysm invol ving the left profunda femoris artery which was repaired. She has a small open wound on the left thigh which has wound VAC in place. She received 2 plasma and 2 packed RBCs. She has an appointment with on May 03 Postop hemoglobin has been reasonably stable. Unfortunately she developed A. fib with RVR postoperatively which required synchronized cardioversion. She is currently in sinus rhythm . We have restarted her Coumadin and Lovenox. INR continues to remain subtherapeutic. Onc e the INR is 2 the Lovenox can be discontinued. She received 2 units of packed RBCs. Patie nt is deconditioned and will need to go to rehab facility. I confirmed the dose of amiodaro ne with EP and they would like to continue 200 mg daily. I already DW Dr. Harman DISCHARGE EXAM Vital Signs: BP 116/56 | Pulse 68 | Temp 36.7 C (98.1 F) (Oral) | Resp 18 | Ht 1.727 m (5' 8") | Wt 127.9 kg (281 lb 15.5 oz) | SpO2 95% | BMI 42.87 kg/m Physical Exam General appearance: appears stated age and cooperative she is talking to me appropriately. Eyes: conjunctivae/corneas clear. PERRL, EOM's intact. Fundi benign. Neck: no JVD Lungs: clear to auscultation bilaterally Abdomen: soft, non-tender; bowel sounds normal; no masses, no organomegaly Extremities: L thigh echhymosis. Wound vac in place. Neuro exam Awake and alert and talking to me appropriately. DATA Recent Labs Lab 04/10/19 0519 04/09/198 04/08/19 0421 WBC 7.97 7.40 9.76 HGB 9.5* 7.3* 7.3* HCT 30.9* 23.7* 22.9* PLT 301 316 275 MONOPCT 7.80 8.40 9.40 Recent Labs Lab 04/10/19 0504/09/198 04/08/19 042 NA 137 135 137 K 4.3 4.4 4.3 CL 102 102 103 CO2 32 32 30 BUN 12 14 16 CALCIUM 8.2* 8.6 8.7 ALKPHOS 89 91 84 ALT 41 20 17 AST 43 27 25 Phosphorus: Lab Results Component Value Date PHOS 3.6 04/10/2019 No results for input(s): LABALBU in the last 168 hours. Recent Labs Lab 04/07/19 0702 04/06/19 0413 04/05/19 0218 MG 2.3 1.9 1.7 Recent Labs Lab 04/10/19 0519 04/09/19 0418 04/08/19 0421 04/07/19 0534 INR 1.4 1.2 1.1 1.1 PTT -- 33* 49* 48* Radiology No results found. Disposition: fdc Condition: Fair Code Status: Full Code Discharge Procedure Orders Ambulatory Referral to [facility] Vascular Surgery Referral Priority: Routine Referral Type: Evaluate & Treat Referral Reason: Specialty Services Required Referred to Provider: BRIDGETTE LOPEZ Requested Specialty: Vascular Surgery Number of Visits Requested: 1 Follow up: Elvin Jamil MD [address] [place] [address] On 05/04/2019 Parvez Vail MD [address] [facility] [id number] In 1 week [facility] [address] [facility] [id number] Breana Mullen, DO [address] [place] [address] [place] [id number] In 2 weeks Discharge Medications New Medications Details enoxaparin 120 mg/0.8 mL injection Inject 0.8 mLs under the skin every 12 hours for 5 days. aka: LOVENOX oxyCODONE 5 mg tablet Take 1-2 tablets by mouth every 6 hours as needed for Pain. aka: ROXICODONE polyethylene glycol packet Take 1 diluted packet by mouth Daily for 7 days. aka: MIRALAX Unchanged Medications Details amiodarone 200 mg tablet Take 1 tablet by mouth Daily. aka: PACERONE atenolol 50 mg tablet Take 50 mg by mouth Daily. aka: TENORMIN cyanocobalamin 500 mcg tablet Take 500 mcg by mouth Daily. aka: VITAMIN B-12 magnesium (as oxide) 250 MG tablet Take 250 mg by mouth Daily. pravastatin 20 mg tablet Take 20 mg by mouth nightly. aka: PRAVACHOL VITAMIN D3 PO Take 4,000 Units by mouth Daily. warfarin 5 mg tablet Take 1 tablet by mouth Daily. - adjust as directed by coumadin clinic - continue usual dos ing upon discharge aka: COUMADIN Discharge took 35 minutes, to include final examination, discussion of admission, and prepa ration of prescriptions, instructions for on-going care, follow-up and documentation of disc harge summary. Richard Buchanan MD 04/10/2019 8:50 AM Dain Colbert MD - 04/09/2019 3:16 PM PST [facility] Service: Hospitalist Discharge Summary Date of Admission: 04/03/2019 Date of Discharge: 04/09/2019 Discharge Provider: Dain Loya MD Discharge Diagnoses: Principal Problem: Hematoma of left thigh Active Problems: Hypertension Acute pain Symptomatic anemia Atrial fibrillation, chronic Elevated troponin Bleeding Pseudoaneurysm Decreased hemoglobin Chronic atrial fibrillation Essential hypertension Pseudoaneurysm following procedure Acute blood loss anemia Resolved Problems: * No resolved hospital problems. * BRIEF HISTORY OF PRESENTATION: Kassie Bear is a 78 y.o. female who who underwent ablation done by Dr. Busby on she. She was discharged home but returned to the ED on Apr 02 complaining o f left thigh hematoma. She developed hemorrhagic anemia hemoglobin dropping down to 8, vasc ular surgery was consulted. sSe was taken to the OR, and was found to have pseudoaneurysm in volving the left profunda femoris artery which was repaired. She has a small open wound on the left thigh which has wound VAC in place. She received 2 plasma and 2 packed RBCs. She has an appointment with on May 03 Postop hemoglobin has been reasonably stable. Unfortunately she developed A. fib with RVR postoperatively which required synchronized cardioversion. She is currently in sinus rhythm . We have restarted her Coumadin and Lovenox. INR continues to remain subtherapeutic. Onc e the INR is 2 the Lovenox can be discontinued. Patient is deconditioned and will need to g o to rehab facility. DISCHARGE EXAM Vital Signs: BP 114/55 | Pulse 72 | Temp 36.9 C (98.5 F) (Oral) | Resp 16 | Ht 1.727 m (5' 8") | Wt 129.5 kg (285 lb 7.9 oz) | SpO2 100% | BMI 43.41 kg/m Physical Exam General appearance: appears stated age and cooperative Eyes: conjunctivae/corneas clear. PERRL, EOM's intact. Fundi benign. Neck: no JVD Lungs: clear to auscultation bilaterally Abdomen: soft, non-tender; bowel sounds normal; no masses, no organomegaly Extremities: L thigh echhymosis. Wound vac in place DATA Recent Labs Lab 04/09/1941704/08/1942004/07/19 0601 WBC 7.40 9.76 12.07* HGB 7.3* 7.3* 7.7* HCT 23.7* 22.9* 24.5* PLT 316 275 264 MONOPCT 8.40 9.40 8.90 Recent Labs Lab 04/09/198 04/08/19 0421 04/07/19 0702 NA 135 137 136 K 4.4 4.3 4.0 CL 102 103 104 CO2 32 30 29 BUN 14 16 12 CALCIUM 8.6 8.7 8.1* ALKPHOS 91 84 87 ALT 20 17 22 AST 27 25 29 Phosphorus: Lab Results Component Value Date PHOS 4.0 04/09/2019 No results for input(s): LABALBU in the last 168 hours. Recent Labs Lab 04/07/19 0702 04/06/19 0413 04/05/19 0218 MG 2.3 1.9 1.7 No results for input(s): AMYLASE in the last 168 hours. No results for input(s): PHART, PO2ART, NRP8RBE, G1HMBIVF, BEART in the last 168 hours. Recent Labs Lab 04/09/19 0418 04/08/19 0421 04/07/19 0534 INR 1.2 1.1 1.1 PTT 33* 49* 48* No results for input(s): TSH in the last 168 hours. Invalid input(s): T3FREE, FREET4 No results for input(s): TROPONINT in the last 168 hours. Invalid input(s): CKTOTAL, TROPONINI, CKMBINDEX Radiology No results found. Disposition: fdc Condition: Fair Code Status: Full Code No discharge procedures on file. Follow up: Elvin Jamil MD [address] [place] [address] On 05/04/2019 Parvez Vail MD [address] [facility] [id number] In 1 week [facility] [address] [facility] [id number] Discharge Medications New Medications Details enoxaparin 120 mg/0.8 mL injection Inject 0.8 mLs under the skin every 12 hours for 5 days. aka: LOVENOX oxyCODONE 5 mg tablet Take 1-2 tablets by mouth every 6 hours as needed for Pain. aka: ROXICODONE polyethylene glycol packet Take 1 diluted packet by mouth Daily for 7 days. aka: MIRALAX Start: April 10, 2019 Unchanged Medications Details amiodarone 200 mg tablet Take 1 tablet by mouth Daily. aka: PACERONE atenolol 50 mg tablet Take 50 mg by mouth Daily. aka: TENORMIN cyanocobalamin 500 mcg tablet Take 500 mcg by mouth Daily. aka: VITAMIN B-12 magnesium (as oxide) 250 MG tablet Take 250 mg by mouth Daily. pravastatin 20 mg tablet Take 20 mg by mouth nightly. aka: PRAVACHOL VITAMIN D3 PO Take 4,000 Units by mouth Daily. warfarin 5 mg tablet Take 1 tablet by mouth Daily. - adjust as directed by coumadin clinic - continue usual dos ing upon discharge aka: COUMADIN Discharge took 35 minutes, to include final examination, discussion of admission, and prepa ration of prescriptions, instructions for on-going care, follow-up and documentation of disc harge summary. Dain Loya MD 04/09/2019 3:16 PM documented in t his encounter Medications at Time of Discharge + [...] + + + +---------+ + + | enoxaparin | Inject 0.8 mLs under | 8 mL | 0 | 04/09/19 | | | (LOVENOX) 120 mg/0.8 | the skin every 12 | | | 20 | 0 | | mL injection | hours for 5 days. | | | | | + + + +---------+ + + | oxyCODONE | Take 1-2 tablets by | 30 | 0 | 04/09/19 | | | (ROXICODONE) 5 mg | mouth every 6 hours | tablet | | 20 | 0 | | tablet | as needed for Pain. | | | | | + + + +---------+ + + | polyethylene | Take 1 diluted | 7 | 1 | 04/10/19 | | | glycol (MIRALAX) | packet by mouth | packet | | 20 | 0 | | packet | Daily for 7 days. | | | | | + + + +---------+ + + documented as of this encounter Progress Notes Val Webb RN - 04/10/2019 12:32 PM PSTReport called to Karen MAYA, given in SBAR format. All questions addressed. All belongings accounted for. IVs D/C'd. Patient D/C via w heelchair van. Val Webb RN Thai Zambrano MD - 04/10/2019 7:23 AM PSTFormatting of this note might be different from the o riginal. Cardiac Electrophysiology Progress Note 04/10/2019, 7:24 AM Subjective: Patient seen in follow-up for atrial dysrhythmias Patient awake and alert. No events noted overnight. No report of chest pain, shortness of breath, or palpitations. S/p 2 units pRBCs last evening. Medications (Current): Current Facility-Administered Medications Medication Dose Route Frequency Provider Last Rate Last Dose albuterol 2.5 mg/3 mL nebulizer solution 2.5 mg 2.5 mg Nebulization Once PRN Breana Mullen, amiodarone (PACERONE) tablet 200 mg 200 mg Oral Daily Elvin Jamil MD atenolol (TENORMIN) tablet 50 mg 50 mg Oral Daily Breana Mullen DO 50 mg at 0831 bisacodyl (DULCOLAX) suppository 10 mg 10 mg Rectal Daily PRN Breana Mullen DO 10 mg at 04/06/19 0049 cholecalciferol (VITAMIN D-3) tablet 4,000 Units 4,000 Units Oral Daily Brenaa lakhani DO 4,000 Units at 04/09/19 0831 cyanocobalamin (VITAMIN B-12) tablet 500 mcg 500 mcg Oral Daily Breana Mullen DO 500 mcg at 04/09/19 0832 dextrose 50% injection 12.5-25 g 12.5-25 g Intravenous Q15 Min PRN Breana Mullen DO docusate-senna (SENOKOT-S) 50-8.6 mg per tablet 2 tablet 2 tablet Oral BID Breana Mullen DO Stopped at 04/07/19 2154 enoxaparin (LOVENOX) 120 mg/0.8 mL injection 120 mg 1 mg/kg Subcutaneous 2 times per d cara Loya MD 120 mg at 04/09/19 194 HYDROcodone-acetaminophen (NORCO) 5-325 mg per tablet 1 tablet 1 tablet Oral Q6H PRN Elisa Mullen DO 1 tablet at 04/09/19 1940 HYDROmorphone (DILAUDID) injection 0.5-1 mg 0.5-1 mg Intravenous Q2H PRN Breana schaeffer DO 1 mg at 04/08/19 1058 lidocaine (XYLOCAINE) 4% topical solution 10 mL 10 mL Topical Once per day on Sat Breana Mullen DO 10 mL at 04/06/19 1156 ondansetron (ZOFRAN) injection 4 mg 4 mg Intravenous Once PRN Breana Mullen, ondansetron (ZOFRAN) injection 4 mg 4 mg Intravenous Q6H PRN Breana Mullen DO 4 mg at 04/04/19 0759 oxyCODONE (ROXICODONE) tablet 5-10 mg 5-10 mg Oral Q4H PRN Dain Loya MD polyethylene glycol (MIRALAX) powder 17 g 17 g Oral Daily Breana Mullen DO 17 g at 04/06/19 0948 pravastatin (PRAVACHOL) tablet 20 mg 20 mg Oral Nightly Breana Mullen DO 20 mg at 04/09/19 1941 warfarin per pharmacy Other Pharmacy Consult Dain Loya MD Objective: Vital signs: Temp (24hrs), Av.6 C (97.9 F), Min:36.1 C (96.9 F), Max:36.9 C (98.5 F) Vitals: 04/09/19 2315 04/09/19 2335 04/10/19 0145 04/10/19 0426 BP: 113/53 114/53 111/56 116/58 Pulse: 65 64 66 66 Resp: 16 16 16 16 Temp: 36.7 C (98.1 F) 36.7 C (98.1 F) 36.7 C (98.1 F) 36.8 C (98.2 F) TempSrc: Oral Oral Oral Oral SpO2: 97% 97% 97% Weight: 127.9 kg (281 lb 15.5 oz) Height: Weight(s): Wt Readings from Last 4 Encounters: 04/10/19 127.9 kg (281 lb 15.5 oz) 03/31/19 126.6 kg (279 lb) 03/06/19 127.6 kg (281 lb 4.8 oz) 02/20/19 128.5 kg (283 lb 4.7 oz) Current Height: Ht Readings from Last 1 Encounters: 04/03/19 1.727 m (5' 8") BMI: Body mass index is 42.87 kg/m. Intake/Output last 3 shifts: Intake/Output Summary (Last 24 hours) at 04/10/2019 0724 Last data filed at 04/10/2019 0718 Gross per 24 hour Intake 718 ml Output 1725 ml Net -1007 ml Labs: Lab Results Component Value Date NA 135 04/09/2019 K 4.4 04/09/2019 CL 102 04/09/2019 CO2 32 04/09/2019 BUN 14 04/09/2019 HGB 9.5 (L) 04/10/2019 WBC 7.97 04/10/2019 RBC 3.20 (L) 04/10/2019 PLT 301 04/10/2019 INR 1.4 04/10/2019 PTT 33 (H) 04/09/2019 Physical Exam: General: well-developed, in no acute distress Neck: no JVD, bruits Lungs: clear to auscultation, no wheezes, rales, rhonchi Heart: regular rate and rhythm, normal S1/S2, no murmurs, gallops, rubs Abdomen: Bowel sounds present, soft, nontender/nondistended, no guarding/rebound Extremities: no clubbing, cyanosis, or edema Neuro: awake and alert Telemetry: Normal sinus rhythm 60-70s Assessment/Plan: 78 year-old female with a history of atrial fibrillation on amio/AC s/p cryo PVI/CTI RFA , HTN, hypercholesterolemia, obesity who was admitted with left LE discomfort. 1) left groin hematoma - bleeding post recent PVI on AC - s/p evacuation of hematoma as per vascular surgery - ELSA drain removed - VAC in place 2) anemia - s/p 2 units pRBCs 04/09/19 - Hgb 9.5 this AM 3) atrial fibrillation - recurrent in AM 04/06/19 - s/p cryo PVI/CTI RFA 04/02 - s/p cardiove rsion 04/07/19 - continued in sinus rhythm - will decrease amiodarone to 200 mg daily - gilbert nue atenolol 50 mg daily - on Lovenox until INR therapeutic on warfarin - telemetry 4) HTN 5) hypercholesterolemia 6) obesity 7) disposition - pending improvement in medical issues - EP follow-up in 2-3 weeks - possib le transfer to rehab today as per chart Will see again 04/13/19 if still inpatient. rr, Tatiana Conway RN - 04/10/2019 5:32 AM PSTVSS throughout shift. 2 units of PRBC transfused without any issues. Medicated for pain X1. Pt rested well throughout shift. Hourly rounding uneventf ul. Chart check complete. Tatiana El RN ain Loya MD - 3:26 PM PSTPatient's discharge was delayed because [facility] did not have an opening today patient will be discharged to [facility] if she is medically stable. Received a call from Dr. Peters who advised to pack RBC transfusion to get a hemoglobin c lose to 9. roctorShekhar [facility] - 04/09/2019 2:45 PM PSTFormatting of this note might be different from the or iginal. Pharmacy Warfarin Monitoring: Kassie Bear is a 78 y.o. female who is currently on warfarin for a diagnosis of Atria l Fibrillation. Resuming anticoagulation post evacuation of left thigh hematoma likely secondary to left fe moral/profunda artery. INDICATION: Atrial fibrillation INR GOAL: 2-3 HOME REGIMEN: Warfarin 5 mg daily except 2.5 mg Tue/Thr/Sat OTHER ANTICOAGULATION: enoxaparin 1 mg/kg SQ BID DRUG INTERACTIONS: VK 10 mg SQ on 04/03/2019, amiodarone started on 04/06/2019 may enhance th e anticoagulant effect of Vitamin K Antagonists, (severity: major, inset: delayed.) PATIENT DIET: General, 50-100% intake documented (improved) Recent Labs Lab 04/09/19 0418 04/08/19 0421 04/07/19 0601 04/07/19 0534 HGB 7.3* 7.3* 7.7* -- PLT 316 275 264 -- INR 1.2 1.1 -- 1.1 DATE 04/09 04/08 04/07 04/06 04/05 04/04 04/03 INR 1.2 1.1 1.1 1.0 N/A 1.7 2.9 Warfarin Dose 7.5 mg planned 7.5 mg 5 mg 5 mg 5 mg HOLD HOLD - vitamin K 10 mg Assessment: The INR is Below the target range of 2-3, patient remains on lovenox bridge while INR is be low goal. The patient successfully underwent DCCV on 04/07. The patient is on amiodarone which is known to increase the sensitivity to warfarin. Amiodarone drug interaction is significant but can be delayed, today is day 4 of concomitan t therapy. Today is day 6 since administration of IV vitamin K, it is possible that the sergey ent is having some residual warfarin resistance attributable to vitamin K given large dose ( but this effect should be finishing). Given INR still low at 1.2 following four doses of warfarin, I will give another one time i ncreased dose tonight with low threshold to reduce dose tomorrow if INR trends up. Plan: Warfarin 7.5 mg po today INR in am Pharmacy will continue to follow and modify therapy as indicated. Val Holliday PharmD, BCPS 04/09/19 2:43 PM Iam Bustillo, [facility] - 04/09/2019 7:48 AM PSTFormatting of this note might be different from the orig inal. Cardiac Electrophysiology Progress Note 04/09/2019, 9:47 AM Subjective: 78 year-old female with a history of atrial fibrillation on amio/AC s/p cryo PVI/CTI RFA , HTN, hypercholesterolemia, obesity who was admitted with left LE discomfort. Patient seen in follow-up for Lt thigh hematoma s/p evacuation, recurrent a fib post ablati on s/p DCCV with denominational of SR. Patient awake and alert seated up in bed this morning. No events noted or reported overni ght. No report of chest pain, shortness of breath, or palpitations. Maintains sinus rhythm s/p cardioversion 04/07/19. ELSA drain out > 24 hours, VAC remains in place. Patient reportin g decreasing tension to tissues of LLE, improved ROM and decreased pain with ambulation atte mpts. She was able to tolerate about 3 hours OOB to chair yesterday and is looking forward t o working with PT/OT again today. Eager to regain strength and mobility - reports being hope ful for placement in rehab facility fairly soon prior to returning home - feeling motivated to continue reconditioning efforts. Medications (Current): Current Facility-Administered Medications Medication Dose Route Frequency Provider Last Rate Last Dose albuterol 2.5 mg/3 mL nebulizer solution 2.5 mg 2.5 mg Nebulization Once PRN Breana Mullen DO amiodarone (PACERONE) tablet 400 mg 400 mg Oral BID SYLVIA Berry 400 mg at 04/09/19 0831 atenolol (TENORMIN) tablet 50 mg 50 mg Oral Daily Breana Mullen DO 50 mg at 0831 bisacodyl (DULCOLAX) suppository 10 mg 10 mg Rectal Daily PRN Breana Mullen DO 10 mg at 04/06/19 0049 cholecalciferol (VITAMIN D-3) tablet 4,000 Units 4,000 Units Oral Daily Breana lakhani DO 4,000 Units at 04/09/19 0831 cyanocobalamin (VITAMIN B-12) tablet 500 mcg 500 mcg Oral Daily Breana Mullen DO 500 mcg at 04/09/19 0832 dextrose 50% injection 12.5-25 g 12.5-25 g Intravenous Q15 Min PRN Breana Mullen DO docusate-senna (SENOKOT-S) 50-8.6 mg per tablet 2 tablet 2 tablet Oral BID Breana Mullen DO Stopped at 04/07/19 2154 enoxaparin (LOVENOX) 120 mg/0.8 mL injection 120 mg 1 mg/kg Subcutaneous 2 times per d cara Loya MD 120 mg at 04/09/19 0830 HYDROcodone-acetaminophen (NORCO) 5-325 mg per tablet 1 tablet 1 tablet Oral Q6H PRN Elisa Mullen DO 1 tablet at 04/08/19 2223 HYDROmorphone (DILAUDID) injection 0.5-1 mg 0.5-1 mg Intravenous Q2H PRN Breana schaeffer DO 1 mg at 04/08/19 1058 lidocaine (XYLOCAINE) 4% topical solution 10 mL 10 mL Topical Once per day on Sat Breana Mullen DO 10 mL at 04/06/19 1156 ondansetron (ZOFRAN) injection 4 mg 4 mg Intravenous Once PRN Breana Mullen, DO ondansetron (ZOFRAN) injection 4 mg 4 mg Intravenous Q6H PRN Breana Mullen, DO 4 mg at 04/04/19 0759 oxyCODONE (ROXICODONE) tablet 5-10 mg 5-10 mg Oral Q4H PRN Dain Loya MD polyethylene glycol (MIRALAX) powder 17 g 17 g Oral Daily Breana Mullen, DO 17 g at 04/06/19 0948 pravastatin (PRAVACHOL) tablet 20 mg 20 mg Oral Nightly Breana Mullen, DO 20 mg at 04/08/192022 warfarin per pharmacy Other Pharmacy Consult Dain Loya MD Objective: Vital signs: Temp (24hrs), Av.7 C (98 F), Min:36.4 C (97.6 F), Max:36.9 C (98.5 F) Vitals: 04/08/19 1944 04/08/19 2332 04/09/19 0356 04/09/19 0821 BP: 91/45 90/43 94/44 104/47 Pulse: 62 65 66 73 Resp: 16 16 16 22 Temp: 36.9 C (98.5 F) 36.6 C (97.8 F) 36.7 C (98.1 F) 36.8 C (98.3 F) TempSrc: Oral Oral Oral Oral SpO2: 97% 98% 98% 98% Weight: 129.5 kg (285 lb 7.9 oz) Height: Weight(s): Wt Readings from Last 4 Encounters: 04/09/19 129.5 kg (285 lb 7.9 oz) 03/31/19 126.6 kg (279 lb) 03/06/19 127.6 kg (281 lb 4.8 oz) 02/20/19 128.5 kg (283 lb 4.7 oz) Current Height: Ht Readings from Last 1 Encounters: 04/03/19 1.727 m (5' 8") BMI: Body mass index is 43.41 kg/m. Intake/Output last 3 shifts: Intake/Output Summary (Last 24 hours) at 04/09/2019 0947 Last data filed at 04/09/2019 0822 Gross per 24 hour Intake 917.5 ml Output 1250 ml Net -332.5 ml Labs: Lab Results Component Value Date NA 135 04/09/2019 K 4.4 04/09/2019 CL 102 04/09/2019 CO2 32 04/09/2019 BUN 14 04/09/2019 HGB 7.3 (L) 04/09/2019 WBC 7.40 04/09/2019 RBC 2.38 (L) 04/09/2019 PLT 316 04/09/2019 INR 1.2 04/09/2019 PTT 33 (H) 04/09/2019 Physical Exam: General: overweight, well-developed, in no acute distress Neck: no JVD Lungs: clear/diminished to auscultation, no wheezes, rales, rhonchi Heart: regular rate and rhythm - sinus 60's Abdomen: Bowel sounds present, soft, nontender/nondistended, no guarding/rebound Extremities: no clubbing, cyanosis. LLE + for 1+ distal edema - fading bruising groin to mi d stuart - supple tissues, no tension - distal pulses intact and comparable R to L : indwelling kramer cath draining clear yellow urine to gravity Neuro: awake and alert, appropriate tone Skin: Pallor, scattered bruising BUE, faded purple/green/yellow bruising LLE s/p hematoma e vacuation - CDI wound vac dressing Telemetry: Sinus rhythm 60's Assessment/Plan: Forwarded from Dr Jamil's attestation & updated to reflect current status 1) left groin hematoma - bleeding post recent PVI (04/02/19) on AC - s/p evacuation of philip gregorio as per vascular surgery - ELSA drain removed - VAC remains in place 2) anemia - trend Hgb post surgery with recent bleeding/hematoma 3) atrial fibrillation - recurrent in AM 04/06/19 - s/p cryo PVI/CTI RFA 04/02 - s/p cardiove rsion 04/07/19 - continues in sinus rhythm - continue amiodarone 400 mg BID for now - will de crease amiodarone to 200 mg daily on discharge - continue atenolol 50 mg daily - okay to kaity nge IV heparin to Lovenox until INR therapeutic on warfarin (1.2 today with goal 2.0-3.0) - telemetry 4) HTN 5) hypercholesterolemia 6) obesity 7) disposition - pending improvement in medical issues - EP FUV scheduled 05/04/19 Electronically signed by: SYLVIA Cervantes 04/09/2019 9:47 AM Associated attestation - Elvin Jamil MD - 04/09/2019 3:36 PM PSTI have inte rviewed and examined this patient on 04/09/19 and agree with the findings and plan of the [facility] practice provider/house staff with further assessment and decision-making as noted he reafter. 78 year-old female with a history of atrial fibrillation on amio/AC s/p cryo PVI/CTI RFA , HTN, hypercholesterolemia, obesity who was admitted with left LE discomfort. 1) left groin hematoma - bleeding post recent PVI on AC - s/p evacuation of hematoma as per vascular surgery - ELSA drain removed - VAC in place 2) anemia - Hgb 7.3 - would consider transfusion prior to discharge to rehab to get Hgb >9 3) atrial fibrillation - recurrent in AM 04/06/19 - s/p cryo PVI/CTI RFA 04/02 - s/p cardiove rsion 04/07/19 - continued in sinus rhythm - continue amiodarone 400 mg BID for now - will de crease amiodarone to 200 mg daily on discharge - continue atenolol 50 mg daily - on Lovenox until INR therapeutic on warfarin - telemetry 4) HTN 5) hypercholesterolemia 6) obesity 7) disposition - pending improvement in medical issuesOrr, Tatiana Conway RN - 04/09/2019 5:31 A M PSTVSS throughout shift. Pt rested well throughout shift. Wound vac remains on, pt medic ated for LLE pain X1. Hourly rounding uneventful. Chart check complete. Tatiana El RN Dain Colbert MD - 2:17 PM PST [facility] Service: Hospitalist Progress Note Hospital Day: LOS: 5 days SUBJECTIVE Patient Summary: Events Overnight: Patient reports left thigh pain. Remains in normal sinus rhythm. Denies any chest pain or shortness of breath Scheduled Medications amiodarone 400 mg Oral BID atenolol 50 mg Oral Daily cholecalciferol 4,000 Units Oral Daily cyanocobalamin 500 mcg Oral Daily docusate-senna 2 tablet Oral BID lidocaine 10 mL Topical Once per day on Sat polyethylene glycol 17 g Oral Daily pravastatin 20 mg Oral Nightly warfarin 7.5 mg Oral Once - Warfarin warfarin per pharmacy Other Pharmacy Consult Continuous Infusions heparin infusion 16 Units/kg/hr (04/07/192033) OBJECTIVE Vital Signs: BP 91/44 | Pulse 64 | Temp 36.4 C (97.6 F) (Oral) | Resp 16 | Ht 1.727 m (5' 8") | Wt 130.3 kg (287 lb 4.2 oz) | SpO2 91% | BMI 43.68 kg/m Physical Exam General appearance: Alert OX3 Neck: No JVD Lungs:CTAB Heart: S1 S2 audible NO MGR. Abdomen: SNT ND Extremities L thigh wound vac in place Large echymosis seen Neuro Grossly Intact DATA Recent Labs Lab 04/08/19 04204/07/19 0601 04/06/19 0413 WBC 9.76 12.07* 9.61 HGB 7.3* 7.7* 7.7* HCT 22.9* 24.5* 24.1* PLT 275 264 231 MONOPCT 9.40 8.90 9.50 Recent Labs Lab 04/08/19 0421 04/07/19 0702 04/06/19 0413 NA 137 136 139 K 4.3 4.0 4.0 CL 103 104 105 CO2 30 29 28 BUN 16 12 14 CALCIUM 8.7 8.1* 8.6 ALKPHOS 84 87 91 ALT 17 22 15 AST 25 29 37 Phosphorus: Lab Results Component Value Date PHOS 3.5 04/08/2019 No results for input(s): LABALBU in the last 168 hours. Recent Labs Lab 04/07/19 0702 04/06/19 0413 04/05/19 0218 MG 2.3 1.9 1.7 No results for input(s): AMYLASE in the last 168 hours. No results for input(s): PHART, PO2ART, HTR6WIN, P9TFYJWN, BEART in the last 168 hours. Recent Labs Lab 04/08/19 0421 04/07/19 0534 04/06/19 2103 04/06/19 0413 INR 1.1 1.1 -- -- 1.0 PTT 49* 48* 48* < > 49* < > = values in this interval not displayed. No results for input(s): TSH in the last 168 hours. Invalid input(s): T3FREE, FREET4 No results for input(s): TROPONINT in the last 168 hours. Invalid input(s): CKTOTAL, TROPONINI, CKMBINDEX Radiology Vas Lower Extremity Arteries Left Result Date: 04/03/2019 ULTRASOUND VENOUS DUPLEX, LEFT GROIN CLINICAL INFORMATION: Heart catheterization 3 days ago . COMPARISON: LOWER EXTREMITY ANY JOINT (03/04/2009); PROCEDURE: Four megahertz curvilinear s onographic grayscale, color flow, spectral Doppler evaluation of the left groin. FINDINGS: T here is a trilobed hemorrhage in the left groin measuring 5.2 x 3.1 by 4.4 cm at the cathete rization site, bulbous 10.1 by 4.6 x 6.2 cm hemorrhage just distal to this, and a 3rd curvil inear hemorrhage anterior and distal to the above hemorrhages measuring 11.0 x 6.2 x 2.9 cm. At the catheterization site, there is a tubular pseudoaneurysm extending through the 1st 2 lobes of the above hemorrhage, with a neck measuring 7 mm at the groin spanning 8.1 cm in le ngth by 1 cm diameter, with bulbous slow flow is seen at the distal tip measuring 2.3 x 2.7 cm. 1. Trilobed extensive hemorrhage in the left groin containing a tubular pseudoaneurysm with a mouth measuring 7 mm at the catheterization site, 1 cm in diameter by 8.1 cm in length, w ith a bulbous tip measuring 2.3 x 2.7 cm distally. 2. Above findings were discussed with Dr. Jamil over the phone. The patient will be sent to the emergency department. Signed by: Na Blanco, Samir Sign Date/Time: 04/03/2019 9:[address] Angiogram Lower Extremity Left W Con Result Date: 04/03/2019 CT ANGIOGRAM ABDOMEN PELVIS AND BILATERAL LOWER EXTREMITY RUNOFF CLINICAL INFORMATION: Dr. Mullen for vascular surgery requesting CT angiogram of the left groin specifically. COMPARIS ON: VAS LOWER EXTREMITY ARTERIES LEFT (04/03/2019); LOWER EXTREMITY ANY JOINT (03/04/2009); [place] OCEDURE: Thin section axial images through the abdomen, pelvis and lower extremities after t he administration of 100ml omnipaque 350 intravenous contrast. 3D and multiplanar reconstruc tions were performed. At least one of the following CT dose optimization techniques were use d: Automated exposure control; Adjustment of mA and/or kV according to patient size; Use of iterative reconstruction technique. FINDINGS: VASCULAR FINDINGS: (For each vessel, the prese nce or absence of atherosclerosis, and the presence or absence of single or multiple stenose s greater than 50%.) Abdominal Aorta: Atherosclerosis without stenosis greater than 50%. Rig ht Common Iliac Artery: Atherosclerosis without stenosis greater than 50%. Right External Il iac Artery: Atherosclerosis without stenosis greater than 50%. Right Common Femoral Artery: Atherosclerosis without stenosis greater than 50%. Right Superficial Femoral Artery: Atheros clerosis without stenosis greater than 50%. Right Popliteal Artery: Atherosclerosis without stenosis greater than 50%. Right Calf: There is enhancement of the anterior tibial, posterio r tibial and peroneal arteries. Left Common Iliac Artery: Atherosclerosis without stenosis g reater than 50%. Left External Iliac Artery: Atherosclerosis without stenosis greater than 5 0%. Left Common Femoral Artery: Atherosclerosis without stenosis greater than 50%. Left Supe rficial Femoral Artery: Atherosclerosis without stenosis greater than 50%. Left femoris prof undus artery: There is active extravasation arising from the proximal femoris profundus lor ry (series 6, image 90) Left Popliteal Artery: Atherosclerosis without stenosis greater than 50%. Left Calf: There is enhancement of the anterior tibial, posterior tibial and peroneal arteries. EXTREMITIES Right Lower Extremity Findings: There are no significant non-vascular findings. Left Lower Extremity Findings: There is a large intramuscular hematoma involving t he left anterior thigh centered in the rectus femoris muscle. There is extensive left thigh soft tissue swelling and fat stranding. ABDOMEN Kidneys: Visualized portion of the kidneys is normal. ABDOMEN AND PELVIS Bowel: Visualized portion of small bowel and colon is normal. Veins: No evidence of venous injury or deep venous thrombosis. Lymph Nodes: No lymphadenopat hy. Peritoneum and Retroperitoneum: No free intraperitoneal gas or fluid. PELVIS Genitourina ry: Visualized bladder is normal appearing. Multiple calcifications are noted in the pelvis . Bones: No lytic or blastic osseous lesions. No acute fracture. Postoperative changes of l eft total knee arthroplasty and L3 through L5 instrumented posterior fusion decompression ar e noted. Active extravasation in the proximal left thigh with appears to originate from the left fem el profunda artery. However, associated venous injury not be excluded. There is a large associated anterior left thigh hematoma with diffuse soft tissue swelling throughout the ent duglas left lower extremity. Signed by: Na Hargrove Hemant Sign Date/Time: 04/03/2019 2:26 P M PROBLEM LIST Principal Problem: Hematoma of left thigh Active Problems: Hypertension Acute pain Symptomatic anemia Atrial fibrillation, chronic Elevated troponin Bleeding Pseudoaneurysm Decreased hemoglobin Chronic atrial fibrillation Essential hypertension Pseudoaneurysm following procedure Acute blood loss anemia Resolved Problems: * No resolved hospital problems. * ASSESSMENT & PLAN Left thigh hematoma most likely secondary to leakage left femoral/profunda artery following recent ablation procedure. She patient underwent angiogram followed Suture ligation of dis tristan profunda femoral arteriotomy and evacuation of the hematoma. Posthemorrhagic anemia we will give 1 dose of IV iron in the morning coral adequate iron B12 folate levels. No need for transfusion monitor Paroxysmal A. fib continue heparin drip.Restart warfarin. EP consulted. They have started her on amiodarone. She underwent synchronized cardioversion today and is back in sinus rhy thm. Patient continues to remain in sinus rhythm. Will discuss with Dr. Juarez regarding t ransitioning to Lovenox and Coumadin. Hypertension resume home medicines Dyslipidemia continue Morbid obesity encouraged weight loss SNF in 1 to 2 days Code Status: Full Code Dain Loya MD 04/08/2019 2:17 PM Iris Leon, [facility] - 04/08/2019 1:07 PM PSTFormatting of this note might be different from the origin al. Pharmacy Warfarin Monitoring: Kassie Bear is a 78 y.o. female who is currently on warfarin for a diagnosis of Atria l Fibrillation. Resuming anticoagulation post evacuation of left thigh hematoma likely secondary to left fe moral/profunda artery. INDICATION: Atrial fibrillation INR GOAL: 2-3 HOME REGIMEN: Warfarin 5 mg daily except 2.5 mg Tue/Thr/Sat OTHER ANTICOAGULATION: Heparin infusion DRUG INTERACTIONS: VK 10 mg SQ on 04/03/2019, amiodarone started on 04/06/2019 may enhance th e anticoagulant effect of Vitamin K Antagonists, severity: major, inset: delayed. PATIENT DIET: General, 20-80% intake documented Recent Labs Lab 04/08/19 0421 04/07/19 0601 04/07/19 0534 04/06/19 0413 HGB 7.3* 7.7* -- 7.7* PLT 275 264 -- 231 INR 1.1 -- 1.1 1.0 DATE 04/08 04/07 04/06 04/05 04/04 04/03 INR 1.1 1.1 1.0 N/A 1.7 2.9 Warfarin Dose 7.5 mg ONCE 5 mg 5 mg 5 mg HOLD HOLD - vitamin K 10 mg Assessment: The INR is Below the target range of 2-3, patient remains on heparin infusion while INR is below goal. The patient successfully underwent DCCV on 04/07. The patient has had low PO intake and is on amiodarone, both factors that can increase the sensitivity to warfarin. Amiodarone drug interaction is significant but can be delayed, today is day 3 of concomitan t therapy. Today is day 5 since administration of IV vitamin K, it is possible that the sergey ent is having some residual warfarin resistance attributable to vitamin K. Given INR still 1.1 following three doses of warfarin, I will give a one time increased dos e tonight. Plan: Warfarin 7.5 mg po today INR in am Pharmacy will continue to follow and modify therapy as indicated. Kizzy Thayer, PharmD, BCCCP 04/08/19 1:02 PM Wen Barragan RN - 04/08/2019 11:55 AM PST [facility] Service: Wound Care NPWT Note Hospital Day: 5 SUBJECTIVE Patient Summary: Wound care presents for NPWT dressing change. OBJECTIVE 04/08/19 1146 Visit Information Visit Type Wound re-assessment Pain/Comfort Presence Of Pain complains of pain/discomfort Response to Pain Intervention pain reduction Wound 04/04/19 1039 Incision groin Placement Date/Time: 04/04/19 1039 Primary Wound Type: Incision Location: groin Wound WDL ex Base reddened;granulating;moist;pink Wound Base Comment painful for patient, full thickness Periwound Area pink;swelling;ecchymotic;intact Edges open Wound Length (cm) 21 cm Wound Width (cm) 3 cm Wound Depth (cm) 0.8 cm Wound Surface Area (cm^2) 63 cm^2 Wound Volume (cm^3) 50.4 cm^3 Drainage Characteristics/Odor serosanguineous Drainage Amount scant Wound Cleaning cleansed with;sterile normal saline Periwound Care barrier film applied Negative Pressure changed Therapy Setting (Negative Pressure Wound Therapy) continuous therapy Pressure Setting (Negative Pressure Wound Therapy) 125 mmHg Dressing (Negative Pressure Wound Therapy) foam, black Sponges Inserted (Negative Pressure Wound Therapy) 3 Sponges Removed (Negative Pressure Wound Therapy) 2 Wound Bed% Granulation 76-100% Wound Image Wound 04/04/18 0800 Incision Left upper;medial thigh Placement Date/Time: 04/04/18 08 Present on Hospital Admission: No Primary Wound Type: (c) Incision Side: Left Orientation: upper;medial Location: thigh Wound WDL ex Dressing Appearance moist drainage Base moist;pink;clean;tenderness Wound Base Comment ELSA removal site Drainage Characteristics/Odor serosanguineous Drainage Amount moderate Wound Cleaning cleansed with;sterile normal saline Dressing dressing initiated;silver impregnated dressing;hydrofiber;foam Visit Summary WOCN Frequency 3 times/wk WOCN Visit Summary NPWT dressing change Next Wound/Ostomy Visit Date 04/10/19 PROBLEM LIST Patient Active Problem List Diagnosis SACROILIITIS Spinal stenosis, cervical region TROCHANTERIC BURSITIS DDD (degenerative disc disease), cervical OBESITY Hypertension HYPERCHOLESTEROLEMIA Myofascial pain syndrome, cervical PARESTHESIA CARPAL TUNNEL SYNDROME S/P lumbar fusion Lumbar spinal stenosis Spondylolisthesis of lumbar region Foraminal stenosis of lumbosacral region Hip pain, bilateral Left shoulder pain Statin-induced myositis S/P cervical spinal fusion Facet arthritis of lumbar region Chronic bilateral low back pain without sciatica DDD (degenerative disc disease), lumbar Gait abnormality Foraminal stenosis of cervical region Pes anserine bursitis-left Chronic neck pain Persistent atrial fibrillation Other persistent atrial fibrillation Hematoma of left thigh Acute pain Symptomatic anemia Atrial fibrillation, chronic Elevated troponin Bleeding Pseudoaneurysm Decreased hemoglobin Chronic atrial fibrillation Essential hypertension Pseudoaneurysm following procedure Acute blood loss anemia ASSESSMENT & PLAN Negative Pressure Wound Therapy Initiated/Continued as Follows: NPWT Status: Continued NPWT Cycle: continuous therapy NPWT Foam/Contact Removed: 2 NPWT Foam/Contact Placed and Number of Each: 3 black NPWT Next Dressing Due: Monday 04/10 NPWT Dressing Size Needed: Small black NPWT Canister Changed: no Today s Therapy Notes: Seal obtained at 125 mmHg. Left Thigh Wound: ELSA drain removal site has serosanginous drainage. Ag aquacel placed and c overed with bordered foam. After Hours Troubleshooting: Vacuum Assisted Closure Policy 699.31.00 has full NPWT dressing procedure details if needed . If NPWT dressing fails and wound care is not available, evaluate the reason on the VAC scre en. For occluded line: Try replacing the canister or track pad. For leaking dressing: Use additional KCI adhesive film or Tegaderm to reinforce leaking are a as needed. If NPWT suction is interrupted for longer than 2 hours, the entire dressing, including the foam, must be removed and replaced with a wet to dry dressing that is to be changed three ti mes a day. Thank you for allowing me to participate in the care of this patient. I will continue to follow with you. Please call if there are any additional questions. Wen Cosby RN 04/08/2019 11:56 AM Breana Kumar DO - 04/08/2019 10:27 AM PST [facility] Progress Note Primary Care Physician: Parvez Vail TODAY S DATE: 04/08/2019 PATIENT NAME: Kassie Bear : 1940 Subjective No complaints, stood with PT yesterday, in NSR after ablation yesterday, has appetite this AM which is a first in a while Objective Vital Signs: Temp: 36.6 C (97.8 F) BP: 98/49 Pulse: 65 Resp: 20 SpO2: 95 % Intake/Output Summary (Last 24 hours) at 04/08/2019 1027 Last data filed at 04/08/2019 0603 Gross per 24 hour Intake 1259 ml Output 680 ml Net 579 ml Weight: 130.3 kg (287 lb 4.2 oz) Exam: Gen: NAD, resting in bed Ext: LLE with ecchymosis remaining, improving and lightening with color as well as moving p osterior, Wound vac with plan for change today Labs: Recent Labs 04/08/19 0421 04/07/19 0702 04/07/19 0601 04/07/19 0534 04/06/19 2103 04/06/19 0413 WBC 9.76 -- 12.07* -- -- -- 9.61 HGB 7.3* -- 7.7* -- -- -- 7.7* HCT 22.9* -- 24.5* -- -- -- 24.1* PLT 275 -- 264 -- -- -- 231 NA 137 136 -- -- -- -- 139 K 4.3 4.0 -- -- -- -- 4.0 CL 103 104 -- -- -- -- 105 CO2 30 29 -- -- -- -- 28 BUN 16 12 -- -- -- -- 14 GLU 112* 124* -- -- -- -- 138* CALCIUM 8.7 8.1* -- -- -- -- 8.6 INR 1.1 -- -- 1.1 -- -- 1.0 PTT 49* -- -- 48* 48* < > 49* < > = values in this interval not displayed. Assessment and plan: Principal Problem: Hematoma of left thigh Active Problems: Hypertension Acute pain Symptomatic anemia Atrial fibrillation, chronic Elevated troponin Bleeding Pseudoaneurysm Decreased hemoglobin Chronic atrial fibrillation Essential hypertension Pseudoaneurysm following procedure Acute blood loss anemia 78 yo female with left thigh hematoma and extravasation on chronic anticoagulation -Continue wound vac changes until closed, mobilze as able, plan to follow up in [facility] in 2 weeks or sooner if needed. Vascular will be available, please don't hesita te to call with any questions or concerns. Saad Mullen DO Electronically signed by: Breana Mullen DO, 04/08/2019 10:27 AM Breana Bustillo ARNP - 04/08/2019 7:07 AM PSTFormatting of this note might be different from the origin al. Cardiac Electrophysiology Progress Note 04/08/2019, 10:41 AM Subjective: 78 year-old female with a history of atrial fibrillation on amio/AC s/p cryo PVI/CTI RFA , HTN, hypercholesterolemia, obesity who was admitted with left LE discomfort. Patient seen in follow-up for atypical atrial flutter/atrial fibrillation s/p synchronized DCCV 04/07 - Patient awake and alert, bright and pleasantly conversational. No events noted overnight. No report of chest pain, shortness of breath, or palpitations. She's maintained sinus rhyth m post cardioversion. ELSA drain to LLE removed yesterday by vascular. Wound vac remains in pl carine w/ appropriate seal. Bruising to LLE continues to fade. No worsening edema, exacerbated pain, increased edema or acute sensory deficits. Patient eager to pursue PT/OT participation and eventual disposition to rehab facility to regain strength/ prevent further deconditioni ng before returning home - ambulated with crutches at baseline prior to ablation. Oral amiod arone dosing to be managed as below. Plan to keep currently scheduled EP clinic FUV 05/[address] ablation. Medications (Current): Current Facility-Administered Medications Medication Dose Route Frequency Provider Last Rate Last Dose albuterol 2.5 mg/3 mL nebulizer solution 2.5 mg 2.5 mg Nebulization Once PRN Breana Mullen DO amiodarone (PACERONE) tablet 400 mg 400 mg Oral BID SYLVIA Berry 400 mg at 04/08/19 0807 atenolol (TENORMIN) tablet 50 mg 50 mg Oral Daily Breana Mullen DO 50 mg at 0807 bisacodyl (DULCOLAX) suppository 10 mg 10 mg Rectal Daily PRN Breana Mullen DO 10 mg at 04/06/19 0049 cholecalciferol (VITAMIN D-3) tablet 4,000 Units 4,000 Units Oral Daily Breana lakhani DO 4,000 Units at 04/08/19 0807 cyanocobalamin (VITAMIN B-12) tablet 500 mcg 500 mcg Oral Daily Breana Mullen DO 500 mcg at 04/08/19 0807 dextrose 50% injection 12.5-25 g 12.5-25 g Intravenous Q15 Min PRN Breana Mullen, DO docusate-senna (SENOKOT-S) 50-8.6 mg per tablet 2 tablet 2 tablet Oral BID Breana Mullen, DO Stopped at 04/07/192153 heparin in dextrose 100 units/mL infusion 12 Units/kg/hr ([place] [place]) Intravenous Continuou s Breana Mullen, DO 10.2 mL/hr at 04/07/192033 16 Units/kg/hr at 04/07/192033 HYDROcodone-acetaminophen (NORCO) 5-325 mg per tablet 1 tablet 1 tablet Oral Q6H PRN Elisa Mullen DO 1 tablet at 04/08/19 0551 HYDROmorphone (DILAUDID) injection 0.5-1 mg 0.5-1 mg Intravenous Q2H PRN Breana schaeffer, DO 1 mg at 04/07/19 2222 lidocaine (XYLOCAINE) 4% topical solution 10 mL 10 mL Topical Once per day on Sat Breana Mullen, DO 10 mL at 04/06/19 1156 ondansetron (ZOFRAN) injection 4 mg 4 mg Intravenous Once PRN Breana Mullen, DO ondansetron (ZOFRAN) injection 4 mg 4 mg Intravenous Q6H PRN Breana Mullen DO 4 mg at 04/04/19 0759 oxyCODONE (ROXICODONE) tablet 5-10 mg 5-10 mg Oral Q4H PRN Dain Loya MD polyethylene glycol (MIRALAX) powder 17 g 17 g Oral Daily Breana Mullen, DO 17 g at 04/06/19 0948 pravastatin (PRAVACHOL) tablet 20 mg 20 mg Oral Nightly Breana Mullen, DO 20 mg at 04/07/19 203 warfarin (COUMADIN) tablet 5 mg 5 mg Oral Daily - Warfarin Hany Nugent [facility] 5 mg a t 04/07/19 1732 warfarin per pharmacy Other Pharmacy Consult Dain Loya MD Objective: Vital signs: Temp (24hrs), Av.6 C (97.9 F), Min:36.5 C (97.7 F), Max:36.8 C (98.2 F) Vitals: 04/07/19 1925 04/07/19 2330 04/08/19 0351 04/08/19 0807 BP: 100/49 99/46 97/47 98/49 Pulse: 69 68 64 65 Resp: Temp: 36.5 C (97.7 F) 36.7 C (98 F) 36.6 C (97.8 F) TempSrc: Oral Oral Oral SpO2: 98% 97% 95% Weight: 130.3 kg (287 lb 4.2 oz) Height: Weight(s): Wt Readings from Last 4 Encounters: 04/08/19 130.3 kg (287 lb 4.2 oz) 03/31/19 126.6 kg (279 lb) 03/06/19 127.6 kg (281 lb 4.8 oz) 02/20/19 128.5 kg (283 lb 4.7 oz) Current Height: Ht Readings from Last 1 Encounters: 04/03/19 1.727 m (5' 8") BMI: Body mass index is 43.68 kg/m. Intake/Output last 3 shifts: Intake/Output Summary (Last 24 hours) at 04/08/2019 1041 Last data filed at 04/08/2019 0900 Gross per 24 hour Intake 1436 ml Output 680 ml Net 756 ml Labs: Lab Results Component Value Date NA 137 04/08/2019 K 4.3 04/08/2019 CL 103 04/08/2019 CO2 30 04/08/2019 BUN 16 04/08/2019 HGB 7.3 (L) 04/08/2019 WBC 9.76 04/08/2019 RBC 2.34 (L) 04/08/2019 PLT 275 04/08/2019 INR 1.1 04/08/2019 PTT 49 (H) 04/08/2019 Physical Exam: General: well-developed, overweight, in no acute distress Neck: no JVD Lungs: diminished but clear to auscultation, no wheezes, rales, rhonchi Heart: regular rate and rhythm Abdomen: Bowel sounds present, soft, nontender/nondistended, no guarding/rebound Extremities: no clubbing, cyanosis. 2+ edema, LLE with diffuse fading discoloration r/t rec ent hematoma s/p evacuation Neuro: awake and alert, appropriate tone and coordination Telemetry: Sinus rhythm 60's Assessment/Plan: Forwarded from Dr Jamil's attestation & updated to reflect current status 1) left groin hematoma - bleeding post recent PVI on AC - s/p evacuation of hematoma as per vascular surgery - ELSA drain removed yesterday due to scant output - VAC remains in place 2) anemia - trend Hgb post surgery with recent bleeding/hematoma - mild drop in trends toda y: 7.7/22.9 from yesterday's 7.7/24.5 3) atrial fibrillation - recurrent in AM 04/06/19 - s/p cryo PVI/CTI RFA 04/02 - initially on IV amiodarone with bolus for possible chemical cardioversion - atypical atrial flutter/coar se atrial fibrillation persisted prompting synchronized cardioversion 04/07 with successful and thus far maintained denominational of sinus rhythm - converted to oral amiodarone currently at 400 mg PO BID - DECREASE Amiodarone to 200 mg once daily at time of eventual discharge t o rehab -continue atenolol 50 mg daily - telemetry - on AC with heparin pending therapeutic INR on warfarin 4) HTN 5) hypercholesterolemia 6) obesity 7) disposition - pending improvement in medical issues - rehab facility placement Electronically signed by: SYLVIA Cervantes 04/08/2019 10:41 AM Associated attestation - Elvin Jamil MD - 04/08/2019 5:49 PM PSTI have inte rviewed and examined this patient on 04/08/19 and agree with the findings and plan of the [facility] practice provider/house staff with further assessment and decision-making as noted he reafter. 78 year-old female with a history of atrial fibrillation on amio/AC s/p cryo PVI/CTI RFA , HTN, hypercholesterolemia, obesity who was admitted with left LE discomfort. 1) left groin hematoma - bleeding post recent PVI on AC - s/p evacuation of hematoma as per vascular surgery - ELSA drain removed 2) anemia - trend Hgb post surgery with recent bleeding/hematoma 3) atrial fibrillation - recurrent in AM 04/06/19 - s/p cryo PVI/CTI RFA 04/02 - s/p cardiove rsion 04/07/19 - continued in sinus rhythm - continue amiodarone 400 mg BID for now - will de crease amiodarone to 200 mg daily on discharge - continue atenolol 50 mg daily - okay to kiaty nge IV heparin to Lovenox until INR therapeutic on warfarin - telemetry 4) HTN 5) hypercholesterolemia 6) obesity 7) disposition - pending improvement in medical issuesBreana Mullen I, DO - 04/07/2019 8:00 PM PST [facility] Progress Note Primary Care Physician: Parvez Vail TODAY S DATE: 04/07/2019 PATIENT NAME: Kassie Bear : 1940 Subjective Pain is controlled, patient is doing well, has not gotten up with physical therapy in the l ast couple days. Objective Vital Signs: Temp: 36.5 C (97.7 F) BP: 100/49 Pulse: 69 Resp: 20 SpO2: 98 % Intake/Output Summary (Last 24 hours) at 04/07/20191999 Last data filed at 04/07/2019 1753 Gross per 24 hour Intake 1483 ml Output 1200 ml Net 283 ml Weight: 129 kg (284 lb 6.3 oz) Exam: * Gen: NAD, resting in bed Ext: LLE with ecchymosis remaining, L ELSA with scan output, mostly serous overnight, Wound v ac with adequate seal, edema remains 2+ Labs: Recent Labs 04/07/19 0702 04/07/19 0601 04/07/19 0534 04/06/19 2103 04/06/19 1515 04/06/19 0413 04/05/19 1155 04/05/19 0218 WBC -- 12.07* -- -- -- -- 9.61 -- 11.92* < > 12.93* HGB -- 7.7* -- -- -- -- 7.7* -- 8.2* < > 7.9* HCT -- 24.5* -- -- -- -- 24.1* -- 25.3* < > 24.3* PLT -- 264 -- -- -- -- 231 -- 222 < > 221 NA 136 -- -- -- -- -- 139 -- -- -- 137 K 4.0 -- -- -- -- -- 4.0 -- -- -- 4.0 CL 104 -- -- -- -- -- 105 -- -- -- 104 CO2 29 -- -- -- -- -- 28 -- -- -- 26 BUN 12 -- -- -- -- -- 14 -- -- -- 17 GLU 124* -- -- -- -- -- 138* -- -- -- 126* CALCIUM 8.1* -- -- -- -- -- 8.6 -- -- -- 8.6 INR -- -- 1.1 -- -- -- 1.0 -- -- -- -- PTT -- -- 48* 48* 48* < > 49* < > -- < > 45* < > = values in this interval not displayed. Assessment and plan: Principal Problem: Hematoma of left thigh Active Problems: Hypertension Acute pain Symptomatic anemia Atrial fibrillation, chronic Elevated troponin Bleeding Pseudoaneurysm Decreased hemoglobin Chronic atrial fibrillation Essential hypertension Pseudoaneurysm following procedure Acute blood loss anemia Electronically signed by: Breana Mullen DO, 04/07/2019 8:00 PM Aubree Hancock, Ph armD - 04/07/2019 3:35 PM PST Warfarin Dosing and Monitoring Per Pharmacy Kassie Bear is a 78 y.o. female who is currently on warfarin for a diagnosis of Atria l Fibrillation. Resuming anticoagulation post evacuation of left thigh hematoma likely secondary to left fe moral/profunda artery. INDICATION: Atrial fibrillation INR GOAL: 2-3 HOME REGIMEN: Warfarin 5 mg daily except 2.5 mg Tue/Thr/Sat OTHER ANTICOAGULATION: Heparin infusion DRUG INTERACTIONS: VK 10 mg SQ on 04/03/2019, amiodarone started on 04/06/2019 may enhance th e anticoagulant effect of Vitamin K Antagonists, severity: major, inset: delayed. PATIENT DIET: General, 50-100% intake documented Recent Labs Lab 04/07/19 0601 04/07/19 0534 04/06/19 0413 04/05/19 1155 04/04/19 0618 HGB 7.7* -- 7.7* 8.2* < > 8.7* HCT 24.5* -- 24.1* 25.3* < > 25.9* PLT 264 -- 231 222 < > 177 INR -- 1.1 1.0 -- -- 1.7 < > = values in this interval not displayed. DATE 04/07 04/06 04/05 04/04 04/03 INR 1.1 1.0 N/A 1.7 2.9 Warfarin Dose 5 mg Planned 5 mg 5 mg HOLD HOLD - vitamin K 10 mg SQ Assessment: The INR is below the target range of 2-3, to be expected after vitamin K administration and held doses Patient has been stable on home regimen SECTION CHIEF Heparin infusion: therapeutic aPTT in the past 24 hours Amiodarone may enhance the anticoagulant effect of Vitamin K Antagonists, also may increase the serum concentration of Vitamin K Antagonists. Severity: Major. Onset: Delayed An empiric warfarin dose reduction is not needed, given sub-therapeutic INR, held doses, VK administration, and the delayed onset of interaction Plan: Will plan for warfarin 5 mg today INR in am Pharmacy will continue to follow and modify therapy as indicated. Thank You, Aubree Rueda PharmD, [facility] 04/07/2019 3:22 PM Dain Elaine MD - 04/07/2019 12:35 PM PSTFormatting of this note might be different from th e original. [facility] Service: Hospitalist Progress Note Hospital Day: LOS: 4 days SUBJECTIVE Patient Summary: Events Overnight: Patient reports left thigh pain. Denies any chest pain shortness of breath nausea vomiting. Overnight went into A. fib. Feels constipated. Scheduled Medications amiodarone 400 mg Oral BID atenolol 50 mg Oral Daily cholecalciferol 4,000 Units Oral Daily cyanocobalamin 500 mcg Oral Daily docusate-senna 2 tablet Oral BID lidocaine 10 mL Topical Once per day on Sat polyethylene glycol 17 g Oral Daily pravastatin 20 mg Oral Nightly warfarin 5 mg Oral Daily - Warfarin warfarin per pharmacy Other Pharmacy Consult Continuous Infusions heparin infusion 16 Units/kg/hr (04/07/19 07) OBJECTIVE Vital Signs: BP 95/45 | Pulse 68 | Temp 36.8 C (98.2 F) (Oral) | Resp 20 | Ht 1.727 m (5' 8") | Wt 129 kg (284 lb 6.3 oz) | SpO2 96% | BMI 43.24 kg/m Physical Exam General appearance: Alert OX3 Neck: No JVD Lungs:CTAB Heart: S1 S2 audible NO MGR. Abdomen: SNT ND Extremities L thigh wound vac in place Neuro Grossly Intact DATA Recent Labs Lab 04/07/19 0601 04/06/19 0413 04/05/19 1155 04/05/198 WBC 12.07* 9.61 11.92* < > 12.93* HGB 7.7* 7.7* 8.2* < > 7.9* HCT 24.5* 24.1* 25.3* < > 24.3* PLT 264 231 222 < > 221 MONOPCT 8.90 9.50 -- -- 9.40 < > = values in this interval not displayed. Recent Labs Lab 04/07/19 0704/06/1941204/05/19217 NA 136 139 137 K 4.0 4.0 4.0 CL 104 105 104 CO2 29 28 26 BUN 12 14 17 CALCIUM 8.1* 8.6 8.6 ALKPHOS 87 91 82 ALT 22 15 12 AST 29 37 38 Phosphorus: Lab Results Component Value Date PHOS 2.7 04/07/2019 No results for input(s): LABALBU in the last 168 hours. Recent Labs Lab 04/07/19 0704/06/19 04104/05/19217 MG 2.3 1.9 1.7 No results for input(s): AMYLASE in the last 168 hours. No results for input(s): PHART, PO2ART, RHI3ZZQ, H7GXTOHM, BEART in the last 168 hours. Recent Labs Lab 04/07/19 0534 04/06/192102 03/24/20 1515 04/06/19 0413 04/04/19 0618 INR 1.1 -- -- -- 1.0 -- 1.7 PTT 48* 48* 48* < > 49* < > -- < > = values in this interval not displayed. No results for input(s): TSH in the last 168 hours. Invalid input(s): T3FREE, FREET4 No results for input(s): TROPONINT in the last 168 hours. Invalid input(s): CKTOTAL, TROPONINI, CKMBINDEX Radiology Vas Lower Extremity Arteries Left Result Date: 04/03/2019 ULTRASOUND VENOUS DUPLEX, LEFT GROIN CLINICAL INFORMATION: Heart catheterization 3 days ago . COMPARISON: LOWER EXTREMITY ANY JOINT (03/04/2009); PROCEDURE: Four megahertz curvilinear s onographic grayscale, color flow, spectral Doppler evaluation of the left groin. FINDINGS: T here is a trilobed hemorrhage in the left groin measuring 5.2 x 3.1 by 4.4 cm at the cathete rization site, bulbous 10.1 by 4.6 x 6.2 cm hemorrhage just distal to this, and a 3rd curvil inear hemorrhage anterior and distal to the above hemorrhages measuring 11.0 x 6.2 x 2.9 cm. At the catheterization site, there is a tubular pseudoaneurysm extending through the 1st 2 lobes of the above hemorrhage, with a neck measuring 7 mm at the groin spanning 8.1 cm in le ngth by 1 cm diameter, with bulbous slow flow is seen at the distal tip measuring 2.3 x 2.7 cm. 1. Trilobed extensive hemorrhage in the left groin containing a tubular pseudoaneurysm with a mouth measuring 7 mm at the catheterization site, 1 cm in diameter by 8.1 cm in length, w ith a bulbous tip measuring 2.3 x 2.7 cm distally. 2. Above findings were discussed with Dr. Jamil over the phone. The patient will be sent to the emergency department. Signed by: Na Blanco, Samir Sign Date/Time: 04/03/2019 9:[address] Angiogram Lower Extremity Left W Con Result Date: 04/03/2019 CT ANGIOGRAM ABDOMEN PELVIS AND BILATERAL LOWER EXTREMITY RUNOFF CLINICAL INFORMATION: Dr. Mullen for vascular surgery requesting CT angiogram of the left groin specifically. COMPARIS ON: VAS LOWER EXTREMITY ARTERIES LEFT (04/03/2019); LOWER EXTREMITY ANY JOINT (03/04/2009); [place] OCEDURE: Thin section axial images through the abdomen, pelvis and lower extremities after t he administration of 100ml omnipaque 350 intravenous contrast. 3D and multiplanar reconstruc tions were performed. At least one of the following CT dose optimization techniques were use d: Automated exposure control; Adjustment of mA and/or kV according to patient size; Use of iterative reconstruction technique. FINDINGS: VASCULAR FINDINGS: (For each vessel, the prese nce or absence of atherosclerosis, and the presence or absence of single or multiple stenose s greater than 50%.) Abdominal Aorta: Atherosclerosis without stenosis greater than 50%. Rig ht Common Iliac Artery: Atherosclerosis without stenosis greater than 50%. Right External Il iac Artery: Atherosclerosis without stenosis greater than 50%. Right Common Femoral Artery: Atherosclerosis without stenosis greater than 50%. Right Superficial Femoral Artery: Atheros clerosis without stenosis greater than 50%. Right Popliteal Artery: Atherosclerosis without stenosis greater than 50%. Right Calf: There is enhancement of the anterior tibial, posterio r tibial and peroneal arteries. Left Common Iliac Artery: Atherosclerosis without stenosis g reater than 50%. Left External Iliac Artery: Atherosclerosis without stenosis greater than 5 0%. Left Common Femoral Artery: Atherosclerosis without stenosis greater than 50%. Left Supe rficial Femoral Artery: Atherosclerosis without stenosis greater than 50%. Left femoris prof undus artery: There is active extravasation arising from the proximal femoris profundus lor ry (series 6, image 90) Left Popliteal Artery: Atherosclerosis without stenosis greater than 50%. Left Calf: There is enhancement of the anterior tibial, posterior tibial and peroneal arteries. EXTREMITIES Right Lower Extremity Findings: There are no significant non-vascular findings. Left Lower Extremity Findings: There is a large intramuscular hematoma involving t he left anterior thigh centered in the rectus femoris muscle. There is extensive left thigh soft tissue swelling and fat stranding. ABDOMEN Kidneys: Visualized portion of the kidneys is normal. ABDOMEN AND PELVIS Bowel: Visualized portion of small bowel and colon is normal. Veins: No evidence of venous injury or deep venous thrombosis. Lymph Nodes: No lymphadenopat hy. Peritoneum and Retroperitoneum: No free intraperitoneal gas or fluid. PELVIS Genitourina ry: Visualized bladder is normal appearing. Multiple calcifications are noted in the pelvis . Bones: No lytic or blastic osseous lesions. No acute fracture. Postoperative changes of l eft total knee arthroplasty and L3 through L5 instrumented posterior fusion decompression ar e noted. Active extravasation in the proximal left thigh with appears to originate from the left fem el profunda artery. However, associated venous injury not be excluded. There is a large associated anterior left thigh hematoma with diffuse soft tissue swelling throughout the ent duglas left lower extremity. Signed by: Na Hargrove Matthew Sign Date/Time: 04/03/2019 2:26 P M PROBLEM LIST Principal Problem: Hematoma of left thigh Active Problems: Hypertension Acute pain Symptomatic anemia Atrial fibrillation, chronic Elevated troponin Bleeding Pseudoaneurysm Decreased hemoglobin Chronic atrial fibrillation Essential hypertension Pseudoaneurysm following procedure Acute blood loss anemia Resolved Problems: * No resolved hospital problems. * ASSESSMENT & PLAN Left thigh hematoma most likely secondary to leakage left femoral/profunda artery following recent ablation procedure. She patient underwent angiogram followed Suture ligation of dis tristan profunda femoral arteriotomy and evacuation of the hematoma. Posthemorrhagic anemia we will give 1 dose of IV iron in the morning coral adequate iron B12 folate levels Paroxysmal A. fib continue heparin drip.Restart warfarin. EP consulted. They have started her on amiodarone. She underwent synchronized cardioversion today and is back in sinus rhy thm. Hypertension resume home medicines Dyslipidemia continue Morbid obesity encouraged weight loss SNF in 1 to 2 days Code Status: Full Code Dain Loya MD 04/07/2019 12:35 PM Yeison Hinton , Josse Landeros RN - 04/06/2019 6:16 PM PSTPatient remains in atrial flutter, rate contro lled, continue amiodarone gtt per protocol. NPO after midnight for possible cardioversion. 1 0ml output from ELSA drain. Minimal output from wound vac. Patient had 2 BM after medication i ntervention. Chart check complete. Josse Hinton RN Odilia Mckeon RN - 04/06/2019 2:10 PM PSTFormatting of this note might be different from the ban taylor [facility] Service: Wound Care NPWT Note Hospital Day: 3 SUBJECTIVE Patient Summary: Wound care in with Dr. Mullen for scheduled NPWT dressing. OBJECTIVE 04/06/19 1400 Visit Information Visit Type Initial wound assessment Wound 04/04/19 1039 Incision groin Placement Date/Time: 04/04/19 1039 Primary Wound Type: Incision Location: groin Base granulating Periwound Area intact Wound Length (cm) 20 cm Wound Width (cm) 2 cm Wound Depth (cm) 1 cm Wound Surface Area (cm^2) 40 cm^2 Wound Volume (cm^3) 40 cm^3 Drainage Characteristics/Odor serosanguineous Drainage Amount small Wound Cleaning cleansed with;sterile normal saline Dressing (NPWT) Periwound Care barrier film applied Negative Pressure changed Therapy Setting (Negative Pressure Wound Therapy) continuous therapy Pressure Setting (Negative Pressure Wound Therapy) 125 mmHg Dressing (Negative Pressure Wound Therapy) foam, black Sponges Inserted (Negative Pressure Wound Therapy) 2 Sponges Removed (Negative Pressure Wound Therapy) 1 Wound Bed% Granulation 76-100% Wound Image Visit Summary Discipline Providing Treatment WOCN Next Wound/Ostomy Visit Date 04/08/19 PROBLEM LIST Patient Active Problem List Diagnosis SACROILIITIS Spinal stenosis, cervical region TROCHANTERIC BURSITIS DDD (degenerative disc disease), cervical OBESITY Hypertension HYPERCHOLESTEROLEMIA Myofascial pain syndrome, cervical PARESTHESIA CARPAL TUNNEL SYNDROME S/P lumbar fusion Lumbar spinal stenosis Spondylolisthesis of lumbar region Foraminal stenosis of lumbosacral region Hip pain, bilateral Left shoulder pain Statin-induced myositis S/P cervical spinal fusion Facet arthritis of lumbar region Chronic bilateral low back pain without sciatica DDD (degenerative disc disease), lumbar Gait abnormality Foraminal stenosis of cervical region Pes anserine bursitis-left Chronic neck pain Persistent atrial fibrillation Other persistent atrial fibrillation Hematoma of left thigh Acute pain Symptomatic anemia Atrial fibrillation, chronic Elevated troponin Bleeding Pseudoaneurysm Decreased hemoglobin Chronic atrial fibrillation Essential hypertension Pseudoaneurysm following procedure Acute blood loss anemia ASSESSMENT & PLAN Negative Pressure Wound Therapy Initiated/Continued as Follows: NPWT Status: Continued NPWT Cycle: continuous therapy NPWT Foam/Contact Removed: 1 NPWT Foam/Contact Placed and Number of Each: 2 black NPWT Next Dressing Due: Saturday NPWT Dressing Size Needed: small or medium black NPWT Canister Changed: no Today s Therapy Notes: Seal obtained at 125 mmHg. Patient premedicated with Lidocaine instill,she tolerated dress ing change well. After Hours Troubleshooting: Vacuum Assisted Closure Policy [phone] has full NPWT dressing procedure details if needed . If NPWT dressing fails and wound care is not available, evaluate the reason on the VAC scre en. For occluded line: Try replacing the canister or track pad. For leaking dressing: Use additional KCI adhesive film or Tegaderm to reinforce leaking are a as needed. If NPWT suction is interrupted for longer than 2 hours, the entire dressing, including the foam, must be removed and replaced with a wet to dry dressing that is to be changed three ti mes a day. Thank you for allowing me to participate in the care of this patient. Odilia Rasmussen RN, CWON 04/06/2019 2:10 PM Charly Tay, PT, DPT - 04/06/2019 2:00 PM PSTFormatting of this note might be different from the juan loera. 04/06/19 1400 PT Visit Summary PT Visit Type Missed Visit (patient unavailable) Next Visit Information 04/06, Vascular surgery PT Visit Summary Wound care tx. in process. Will attempt to return later as able per censu s demands Danilo Colbert MD - 04/06/2019 1:40 PM PST . [facility] Service: Hospitalist Progress Note Hospital Day: LOS: 3 days SUBJECTIVE Patient Summary: Events Overnight: Patient reports left thigh pain. Denies any chest pain shortness of breath nausea vomiting. Overnight went into A. fib. Feels constipated. Scheduled Medications atenolol 50 mg Oral Daily cholecalciferol 4,000 Units Oral Daily cyanocobalamin 500 mcg Oral Daily docusate-senna 2 tablet Oral BID mineral gmo-ejtbawuy-ntxpd (HOG) enema Rectal Once lidocaine 10 mL Topical Once per day on Sat polyethylene glycol 17 g Oral Daily pravastatin 20 mg Oral Nightly warfarin 5 mg Oral Daily - Warfarin warfarin per pharmacy Other Pharmacy Consult Continuous Infusions amiodarone 1 mg/min (04/06/19 1023) amiodarone heparin infusion 16 Units/kg/hr (04/06/19 1131) OBJECTIVE Vital Signs: BP 96/50 | Pulse 82 | Temp 36.8 C (98.2 F) (Oral) | Resp 18 | Ht 1.727 m (5' 8") | Wt 129 kg (284 lb 6.3 oz) | SpO2 98% | BMI 43.24 kg/m Physical Exam General appearance: Alert OX3 Neck: No JVD Lungs:CTAB Heart: S1 S2 audible NO MGR. Abdomen: SNT ND Extremities L thigh wound vac in place Neuro Grossly Intact DATA Recent Labs Lab 04/06/1941204/05/19 1155 04/05/19 0828 04/05/1921704/03/19 1902 WBC 9.61 11.92* 11.60* 12.93* < > 12.16* HGB 7.7* 8.2* 7.6* 7.9* < > 8.3* HCT 24.1* 25.3* 23.8* 24.3* < > 25.4* PLT 231 222 211 221 < > 232 MONOPCT 9.50 -- -- 9.40 -- 10.40 < > = values in this interval not displayed. Recent Labs Lab 04/06/1941204/05/1921704/04/19 1152 NA 139 137 138 K 4.0 4.0 4.4 CL 105 104 105 CO2 28 26 26 BUN 14 17 19 CALCIUM 8.6 8.6 8.3* ALKPHOS 91 82 86 ALT 15 12 12 AST 37 38 25 Phosphorus: Lab Results Component Value Date PHOS 2.7 04/06/2019 No results for input(s): LABALBU in the last 168 hours. Recent Labs Lab 04/06/19 04104/05/1921704/04/19 1152 MG 1.9 1.7 1.9 No results for input(s): AMYLASE in the last 168 hours. No results for input(s): PHART, PO2ART, IHN5PQF, S0QUCRBS, BEART in the last 168 hours. Recent Labs Lab 04/06/19 1025 04/06/19 0413 04/05/19 2201 04/04/19 0618 04/03/19 1025 INR -- 1.0 -- -- 1.7 2.9 PTT 40* 49* 41* < > -- -- < > = values in this interval not displayed. No results for input(s): TSH in the last 168 hours. Invalid input(s): T3FREE, FREET4 No results for input(s): TROPONINT in the last 168 hours. Invalid input(s): CKTOTAL, TROPONINI, CKMBINDEX Radiology Vas Lower Extremity Arteries Left Result Date: 04/03/2019 ULTRASOUND VENOUS DUPLEX, LEFT GROIN CLINICAL INFORMATION: Heart catheterization 3 days ago . COMPARISON: LOWER EXTREMITY ANY JOINT (03/04/2009); PROCEDURE: Four megahertz curvilinear s onographic grayscale, color flow, spectral Doppler evaluation of the left groin. FINDINGS: T here is a trilobed hemorrhage in the left groin measuring 5.2 x 3.1 by 4.4 cm at the cathete rization site, bulbous 10.1 by 4.6 x 6.2 cm hemorrhage just distal to this, and a 3rd curvil inear hemorrhage anterior and distal to the above hemorrhages measuring 11.0 x 6.2 x 2.9 cm. At the catheterization site, there is a tubular pseudoaneurysm extending through the 1st 2 lobes of the above hemorrhage, with a neck measuring 7 mm at the groin spanning 8.1 cm in le ngth by 1 cm diameter, with bulbous slow flow is seen at the distal tip measuring 2.3 x 2.7 cm. 1. Trilobed extensive hemorrhage in the left groin containing a tubular pseudoaneurysm with a mouth measuring 7 mm at the catheterization site, 1 cm in diameter by 8.1 cm in length, w ith a bulbous tip measuring 2.3 x 2.7 cm distally. 2. Above findings were discussed with Dr. Jamil over the phone. The patient will be sent to the emergency department. Signed by: Na Blanco Shawn Sign Date/Time: 04/03/2019 9:[address] Angiogram Lower Extremity Left W Con Result Date: 04/03/2019 CT ANGIOGRAM ABDOMEN PELVIS AND BILATERAL LOWER EXTREMITY RUNOFF CLINICAL INFORMATION: Dr. Mullen for vascular surgery requesting CT angiogram of the left groin specifically. COMPARIS ON: VAS LOWER EXTREMITY ARTERIES LEFT (04/03/2019); LOWER EXTREMITY ANY JOINT (03/04/2009); [place] OCEDURE: Thin section axial images through the abdomen, pelvis and lower extremities after t he administration of 100ml omnipaque 350 intravenous contrast. 3D and multiplanar reconstruc tions were performed. At least one of the following CT dose optimization techniques were use d: Automated exposure control; Adjustment of mA and/or kV according to patient size; Use of iterative reconstruction technique. FINDINGS: VASCULAR FINDINGS: (For each vessel, the prese nce or absence of atherosclerosis, and the presence or absence of single or multiple stenose s greater than 50%.) Abdominal Aorta: Atherosclerosis without stenosis greater than 50%. Rig ht Common Iliac Artery: Atherosclerosis without stenosis greater than 50%. Right External Il iac Artery: Atherosclerosis without stenosis greater than 50%. Right Common Femoral Artery: Atherosclerosis without stenosis greater than 50%. Right Superficial Femoral Artery: Atheros clerosis without stenosis greater than 50%. Right Popliteal Artery: Atherosclerosis without stenosis greater than 50%. Right Calf: There is enhancement of the anterior tibial, posterio r tibial and peroneal arteries. Left Common Iliac Artery: Atherosclerosis without stenosis g reater than 50%. Left External Iliac Artery: Atherosclerosis without stenosis greater than 5 0%. Left Common Femoral Artery: Atherosclerosis without stenosis greater than 50%. Left Supe rficial Femoral Artery: Atherosclerosis without stenosis greater than 50%. Left femoris prof undus artery: There is active extravasation arising from the proximal femoris profundus lor ry (series 6, image 90) Left Popliteal Artery: Atherosclerosis without stenosis greater than 50%. Left Calf: There is enhancement of the anterior tibial, posterior tibial and peroneal arteries. EXTREMITIES Right Lower Extremity Findings: There are no significant non-vascular findings. Left Lower Extremity Findings: There is a large intramuscular hematoma involving t he left anterior thigh centered in the rectus femoris muscle. There is extensive left thigh soft tissue swelling and fat stranding. ABDOMEN Kidneys: Visualized portion of the kidneys is normal. ABDOMEN AND PELVIS Bowel: Visualized portion of small bowel and colon is normal. Veins: No evidence of venous injury or deep venous thrombosis. Lymph Nodes: No lymphadenopat hy. Peritoneum and Retroperitoneum: No free intraperitoneal gas or fluid. PELVIS Genitourina ry: Visualized bladder is normal appearing. Multiple calcifications are noted in the pelvis . Bones: No lytic or blastic osseous lesions. No acute fracture. Postoperative changes of l eft total knee arthroplasty and L3 through L5 instrumented posterior fusion decompression ar e noted. Active extravasation in the proximal left thigh with appears to originate from the left fem el profunda artery. However, associated venous injury not be excluded. There is a large associated anterior left thigh hematoma with diffuse soft tissue swelling throughout the ent duglas left lower extremity. Signed by: Na Hargrove Matthew Sign Date/Time: 04/03/2019 2:26 P M PROBLEM LIST Principal Problem: Hematoma of left thigh Active Problems: Hypertension Acute pain Symptomatic anemia Atrial fibrillation, chronic Elevated troponin Bleeding Pseudoaneurysm Decreased hemoglobin Chronic atrial fibrillation Essential hypertension Pseudoaneurysm following procedure Acute blood loss anemia Resolved Problems: * No resolved hospital problems. * ASSESSMENT & PLAN Left thigh hematoma most likely secondary to leakage left femoral/profunda artery following recent ablation procedure. She patient underwent angiogram followed Suture ligation of dis tristan profunda femoral arteriotomy and evacuation of the hematoma. Posthemorrhagic anemia we will give 1 dose of IV iron in the morning coral adequate iron B12 folate levels Paroxysmal A. fib continue heparin drip.Restart warfarin. EP consulted. They have started her on amiodarone Hypertension resume home medicines Dyslipidemia continue Morbid obesity encouraged weight loss SNF in 1 to 2 days Code Status: Full Code Dain Loya MD 04/06/2019 1:40 PM [facility] [[email or web address]Iris Thayer, [facility] - 04/06/2019 11:41 AM PSTFormatting of this note might be different from the origin al. Pharmacy Warfarin Monitoring: Kassie Eva Bear female 78 y.o. Pharmacy consulted to dose warfarin per: Dr. Loya. Resuming anticoagulation post evacua tion of left thigh hematoma likely secondary to left femoral/profunda artery. INDICATION: Atrial Fibrillation GOAL INR: 2-3 HOME REGIMEN: 2.5 mg on //Sat, 5 mg all other days OTHER ANTICOAGULATION: heparin infusion (bridge while awaiting therapeutic INR) DRUG INTERACTIONS: vitamin K 10 mg SQ given 04/03 (may cause warfarin resistance for 5-7 day s following dose); amiodarone started 04/06 (strong inhibitor of warfarin metabolism; anticip ate 50% reduction in weekly warfarin dose after 7-14 days concomitant therapy) PATIENT DIET: General diet, no meals recorded at this time Recent Labs Lab 04/06/19 0413 04/05/19 1155 04/05/19 0828 04/04/19 0618 04/03/19 1025 HGB 7.7* 8.2* 7.6* < > 8.7* < > 9.0* PLT 231 222 211 < > 177 < > 213 INR 1.0 -- -- -- 1.7 -- 2.9 < > = values in this interval not displayed. DATE 04/06 04/05 04/04 04/03 INR 1.0 N/A 1.7 2.9 Warfarin Dose 5 mg planned 5 mg HOLD HOLD - vitamin K 10 mg SQ Assessment: The INR is Below the target range of 2-3, to be expected after vitamin K and held doses Patient was previously stable on home regimen. Significant drug interaction with amiodarone , however, dose adjustments not anticipated until 7 days of concomitant therapy. Continue home regimen at this time. Plan: Warfarin 5 mg po today per home regimen. INR in am Pharmacy will continue to follow and modify therapy as indication. Kizzy Thayer, PharmD, [facility] 04/06/19 11:41 AM Breana Kumar I, - 04/06/2019 11:37 AM PST . [facility] Progress Note Primary Care Physician: Parvez Vail TODAY S DATE: 04/06/2019 PATIENT NAME: Kassie Bear : 1940 Subjective Feels crappy, is constipated and in a lot of pain, asking for something to help her go toda y. Objective Vital Signs: Temp: 36.7 C (98.1 F) BP: 99/53 Pulse: 92 Resp: 18 SpO2: 98 % Intake/Output Summary (Last 24 hours) at 04/06/2019 1137 Last data filed at 04/06/2019 0545 Gross per 24 hour Intake 251 ml Output 2755 ml Net -2504 ml Weight: 129 kg (284 lb 6.3 oz) Exam: Gen: NAD Ext: Left groin wound vac removed, appropriately healing tissue underneath, no signs of inf ection, wound vac replaced per wound care, left foot warm, capillary refill 2 seconds, edema of 2+ but decreasing Labs: Recent Labs 04/06/19 1025 04/06/19 0413 04/05/19 2201 04/05/19 1155 04/05/19 0828 04/05/19 0218 04/04/19 1152 04/04/19 0618 04/03/19 1945 WBC -- 9.61 -- -- 11.92* 11.60* 12.93* < > 16.08* 11.23* < > 11.91* HGB -- 7.7* -- -- 8.2* 7.6* 7.9* < > 8.9* 8.7* < > 8.2* HCT -- 24.1* -- -- 25.3* 23.8* 24.3* < > 26.9* 25.9* < > 25.2* PLT -- 231 -- -- 222 211 221 < > 204 177 < > 239 NA -- 139 -- -- -- -- 137 -- 138 -- -- -- K -- 4.0 -- -- -- -- 4.0 -- 4.4 -- -- -- CL -- 105 -- -- -- -- 104 -- 105 -- -- -- CO2 -- 28 -- -- -- -- 26 -- 26 -- -- -- BUN -- 14 -- -- -- -- 17 -- 19 -- -- -- GLU -- 138* -- -- -- -- 126* -- 142* -- -- -- CALCIUM -- 8.6 -- -- -- -- 8.6 -- 8.3* -- -- -- INR -- 1.0 -- -- -- -- -- -- -- 1.7 -- -- PTT 40* 49* 41* < > -- 66* 45* < > -- -- -- -- TROPONIN -- -- -- -- -- -- -- -- -- -- -- 1.186* < > = values in this interval not displayed. Assessment and plan: Principal Problem: Hematoma of left thigh Active Problems: Hypertension Acute pain Symptomatic anemia Atrial fibrillation, chronic Elevated troponin Bleeding Pseudoaneurysm Decreased hemoglobin Chronic atrial fibrillation Essential hypertension Pseudoaneurysm following procedure Acute blood loss anemia Left groin hematoma on chronic anticoagulation s/p ablation for Atrial fibrillation -PT to mobilize today, may need SNF at discharge -L Elsa with too much out to discontinue today, anticipate tomorrow, leaking serous fluid ab und the periphery as left leg swelling is decreasing overall -Titrate heparin for Tx level and continue Warfarin administration given switch back to atr ial fibrillation and possible cardioversion tomorrow -Wound vac changed at bedside, continue with q2-3 days until closed -Constipated-bowel regimen Electronically signed by: Breana Mullen DO, 04/06/2019 11:37 AM Sukhi Philip RN - 04/05/2019 6:50 PM PSTFowinnie catheter inserted for recurrent urinary ret ention, 1000ml of mike urine collected. Bm x1. ELSA drain site reinforced for serosanguineous drainage leaking from insertion site. 70ml output from ELSA drain. 10ml output from wound vac . Medicated to pain x1. Coumadin restarted. Chart check complete. Josse Hinton RN Breana Kumar DO - 04/05/2019 4:18 PM PSTFormatting of this note might be different from t dustin original. [facility] Progress Note Primary Care Physician: Parvez Vail TODAY S DATE: 04/05/2019 PATIENT NAME: Kassie Bear : 1940 Subjective Sitting in chair, Objective Vital Signs: Temp: 36.7 C (98 F) BP: 103/54 Pulse: 81 Resp: 18 SpO2: 95 % Intake/Output Summary (Last 24 hours) at 04/05/2019 1618 Last data filed at 04/05/2019 1616 Gross per 24 hour Intake 1468.57 ml Output 1525 ml Net -56.43 ml Weight: 129 kg (284 lb 6.3 oz) Exam: Gen: NAD Ext: L ELSA with more serous SS output than yesterday, wound vac with good seal, no erythema, distal left foot with 2+ edema, DP signal is triphasic, right DP is 2+ palpable, ecchymosis continues to evolve, less pain in anterior thigh, right groin soft, no hematoma Labs: Recent Labs 04/05/19 1552 04/05/19 1155 04/05/19 0828 04/05/19 0218 04/04/19 1152 04/04/19 0618 04/03/19 1945 04/03/19 1025 WBC -- 11.92* 11.60* 12.93* < > 16.08* 11.23* < > 11.91* < > 12.36* HGB -- 8.2* 7.6* 7.9* < > 8.9* 8.7* < > 8.2* < > 9.0* HCT -- 25.3* 23.8* 24.3* < > 26.9* 25.9* < > 25.2* < > 27.1* PLT -- 222 211 221 < > 204 177 < > 239 < > 213 NA -- -- -- 137 -- 138 -- -- -- -- 136 K -- -- -- 4.0 -- 4.4 -- -- -- -- 4.0 CL -- -- -- 104 -- 105 -- -- -- -- 103 CO2 -- -- -- 26 -- 26 -- -- -- -- 27 BUN -- -- -- 17 -- 19 -- -- -- -- 20 GLU -- -- -- 126* -- 142* -- -- -- -- 140* CALCIUM -- -- -- 8.6 -- 8.3* -- -- -- -- 8.9 INR -- -- -- -- -- -- 1.7 -- -- -- 2.9 PTT 55* -- 66* 45* < > -- -- -- -- -- -- TROPONIN -- -- -- -- -- -- -- -- 1.186* -- -- < > = values in this interval not displayed. Assessment and plan: Principal Problem: Hematoma of left thigh Active Problems: Hypertension Acute pain Symptomatic anemia Atrial fibrillation, chronic Elevated troponin Bleeding Pseudoaneurysm Decreased hemoglobin Chronic atrial fibrillation Essential hypertension Pseudoaneurysm following procedure Acute blood loss anemia Left groin hematoma and chronic anticoagulation s/p ablation for Atrial fibrillation -L groin output in ELSA slowed, on Tx Heparin, start Warfarin today given she received Vitami n K, will take some time to get back to Tx level -PT today, mobilize -Wound vac change Saturday with wound care Electronically signed by: Breana Mullen DO, 04/05/2019 4:18 PM oHany ballard R PH - 04/05/2019 2:27 PM PST Pharmacy Warfarin Monitoring: Kassie Velasquez Bear female 78 y.o. Pharmacy consulted to dose warfarin per: Dr. Loya. Resuming anticoagulation post evacua tion of left thigh hematoma likely secondary to left femoral/profunda artery. INDICATION: Atrial Fibrillation OTHER ANTICOAGULATION: heparin DRUG INTERACTIONS: pravastatin PATIENT DIET: General diet, no meals recorded at this time Recent Labs Lab 04/05/19 1155 04/05/19 0828 04/05/19 0218 04/04/19 0618 04/03/19 1025 03/31/19 0711 HGB 8.2* 7.6* 7.9* < > 8.7* < > 9.0* 15.0 PLT 222 211 221 < > 177 < > 213 288 INR -- -- -- -- 1.7 -- 2.9 2.9 < > = values in this interval not displayed. DATE 04/05 04/04 04/03 INR none 1.7 2.9 Warfarin Dose Vitamin K 10 mg SQ @ 2000 Assessment: The INR is Below the target range of 2-3 Patient was therapeutic prior to admission on home dose of 5 mg on Sat/Sat/Sat/Sat and 2.5 mg on //Sat. Home dose confirmed via RN interview with patient Plan: Warfarin 5 mg po today INR in am Pharmacy will continue to follow and modify therapy as indication. HANY NUGENT RPH 2:17 PM 04/05/2019 Dain Colbert MD - 04/05/2019 12:54 PM PST [facility] Service: Hospitalist Progress Note Hospital Day: LOS: 2 days SUBJECTIVE Patient Summary: Events Overnight: Patient reports left thigh pain. Tolerated the angiogram. Denies a ny chest pain shortness of breath nausea vomiting Scheduled Medications amiodarone 200 mg Oral Daily atenolol 50 mg Oral Daily cholecalciferol 4,000 Units Oral Daily cyanocobalamin 500 mcg Oral Daily docusate-senna 2 tablet Oral BID polyethylene glycol 17 g Oral Daily pravastatin 20 mg Oral Nightly warfarin per pharmacy Other Pharmacy Consult Continuous Infusions heparin infusion 12 Units/kg/hr (04/05/19 1022) OBJECTIVE Vital Signs: BP 103/54 | Pulse 81 | Temp 36.7 C (98 F) (Oral) | Resp 18 | Ht 1.727 m (5' 8") | Wt 129 kg (284 lb 6.3 oz) | SpO2 95% | BMI 43.24 kg/m Physical Exam General appearance: Alert OX3 Neck: No JVD Lungs:CTAB Heart: S1 S2 audible NO MGR. Abdomen: SNT ND Extremities L thigh wound vac in place Neuro Grossly Intact DATA Recent Labs Lab 04/05/19 0828 04/05/19 0218 04/04/19 2353 04/03/19 1902 04/03/19 1025 WBC 11.60* 12.93* 13.56* < > 12.16* 12.36* HGB 7.6* 7.9* 8.2* < > 8.3* 9.0* HCT 23.8* 24.3* 24.6* < > 25.4* 27.1* PLT 211 221 200 < > 232 213 MONOPCT -- 9.40 -- -- 10.40 9.90 < > = values in this interval not displayed. Recent Labs Lab 04/05/19 0218 04/04/19 1152 04/03/19 1025 NA 137 138 136 K 4.0 4.4 4.0 CL 104 105 103 CO2 26 26 27 BUN 17 19 20 CALCIUM 8.6 8.3* 8.9 ALKPHOS 82 86 -- ALT 12 12 -- AST 38 25 -- Phosphorus: Lab Results Component Value Date PHOS 3.1 04/05/2019 No results for input(s): LABALBU in the last 168 hours. Recent Labs Lab 04/05/19 0218 04/04/19 1152 MG 1.7 1.9 No results for input(s): AMYLASE in the last 168 hours. No results for input(s): PHART, PO2ART, KLR8QTG, N4ROUEOX, BEART in the last 168 hours. Recent Labs Lab 04/05/19 0828 04/05/19 0218 04/04/19 1842 04/04/19 0618 04/03/19 1025 03/31/19 0711 INR -- -- -- -- 1.7 2.9 2.9 PTT 66* 45* 33* < > -- -- -- < > = values in this interval not displayed. No results for input(s): TSH in the last 168 hours. Invalid input(s): T3FREE, FREET4 No results for input(s): TROPONINT in the last 168 hours. Invalid input(s): CKTOTAL, TROPONINI, CKMBINDEX Radiology Vas Lower Extremity Arteries Left Result Date: 04/03/2019 ULTRASOUND VENOUS DUPLEX, LEFT GROIN CLINICAL INFORMATION: Heart catheterization 3 days ago . COMPARISON: LOWER EXTREMITY ANY JOINT (03/04/2009); PROCEDURE: Four megahertz curvilinear s onographic grayscale, color flow, spectral Doppler evaluation of the left groin. FINDINGS: T here is a trilobed hemorrhage in the left groin measuring 5.2 x 3.1 by 4.4 cm at the cathete rization site, bulbous 10.1 by 4.6 x 6.2 cm hemorrhage just distal to this, and a 3rd curvil inear hemorrhage anterior and distal to the above hemorrhages measuring 11.0 x 6.2 x 2.9 cm. At the catheterization site, there is a tubular pseudoaneurysm extending through the 1st 2 lobes of the above hemorrhage, with a neck measuring 7 mm at the groin spanning 8.1 cm in le ngth by 1 cm diameter, with bulbous slow flow is seen at the distal tip measuring 2.3 x 2.7 cm. 1. Trilobed extensive hemorrhage in the left groin containing a tubular pseudoaneurysm with a mouth measuring 7 mm at the catheterization site, 1 cm in diameter by 8.1 cm in length, w ith a bulbous tip measuring 2.3 x 2.7 cm distally. 2. Above findings were discussed with Dr. Jamil over the phone. The patient will be sent to the emergency department. Signed by: Na Blanco Shawn Sign Date/Time: 04/03/2019 9:[address] Angiogram Lower Extremity Left W Con Result Date: 04/03/2019 CT ANGIOGRAM ABDOMEN PELVIS AND BILATERAL LOWER EXTREMITY RUNOFF CLINICAL INFORMATION: Dr. Mullen for vascular surgery requesting CT angiogram of the left groin specifically. COMPARIS ON: VAS LOWER EXTREMITY ARTERIES LEFT (04/03/2019); LOWER EXTREMITY ANY JOINT (03/04/2009); [place] OCEDURE: Thin section axial images through the abdomen, pelvis and lower extremities after t he administration of 100ml omnipaque 350 intravenous contrast. 3D and multiplanar reconstruc tions were performed. At least one of the following CT dose optimization techniques were use d: Automated exposure control; Adjustment of mA and/or kV according to patient size; Use of iterative reconstruction technique. FINDINGS: VASCULAR FINDINGS: (For each vessel, the prese nce or absence of atherosclerosis, and the presence or absence of single or multiple stenose s greater than 50%.) Abdominal Aorta: Atherosclerosis without stenosis greater than 50%. Rig ht Common Iliac Artery: Atherosclerosis without stenosis greater than 50%. Right External Il iac Artery: Atherosclerosis without stenosis greater than 50%. Right Common Femoral Artery: Atherosclerosis without stenosis greater than 50%. Right Superficial Femoral Artery: Atheros clerosis without stenosis greater than 50%. Right Popliteal Artery: Atherosclerosis without stenosis greater than 50%. Right Calf: There is enhancement of the anterior tibial, posterio r tibial and peroneal arteries. Left Common Iliac Artery: Atherosclerosis without stenosis g reater than 50%. Left External Iliac Artery: Atherosclerosis without stenosis greater than 5 0%. Left Common Femoral Artery: Atherosclerosis without stenosis greater than 50%. Left Supe rficial Femoral Artery: Atherosclerosis without stenosis greater than 50%. Left femoris prof undus artery: There is active extravasation arising from the proximal femoris profundus lor ry (series 6, image 90) Left Popliteal Artery: Atherosclerosis without stenosis greater than 50%. Left Calf: There is enhancement of the anterior tibial, posterior tibial and peroneal arteries. EXTREMITIES Right Lower Extremity Findings: There are no significant non-vascular findings. Left Lower Extremity Findings: There is a large intramuscular hematoma involving t he left anterior thigh centered in the rectus femoris muscle. There is extensive left thigh soft tissue swelling and fat stranding. ABDOMEN Kidneys: Visualized portion of the kidneys is normal. ABDOMEN AND PELVIS Bowel: Visualized portion of small bowel and colon is normal. Veins: No evidence of venous injury or deep venous thrombosis. Lymph Nodes: No lymphadenopat hy. Peritoneum and Retroperitoneum: No free intraperitoneal gas or fluid. PELVIS Genitourina ry: Visualized bladder is normal appearing. Multiple calcifications are noted in the pelvis . Bones: No lytic or blastic osseous lesions. No acute fracture. Postoperative changes of l eft total knee arthroplasty and L3 through L5 instrumented posterior fusion decompression ar e noted. Active extravasation in the proximal left thigh with appears to originate from the left fem el profunda artery. However, associated venous injury not be excluded. There is a large associated anterior left thigh hematoma with diffuse soft tissue swelling throughout the ent duglas left lower extremity. Signed by: Na Hargrove Matthew Sign Date/Time: 04/03/2019 2:26 P M PROBLEM LIST Principal Problem: Hematoma of left thigh Active Problems: Hypertension Acute pain Symptomatic anemia Atrial fibrillation, chronic Elevated troponin Bleeding Pseudoaneurysm Decreased hemoglobin Chronic atrial fibrillation Essential hypertension Pseudoaneurysm following procedure Acute blood loss anemia Resolved Problems: * No resolved hospital problems. * ASSESSMENT & PLAN Left thigh hematoma most likely secondary to leakage left femoral/profunda artery following recent ablation procedure. She patient underwent angiogram followed Suture ligation of dis tristan profunda femoral arteriotomy and evacuation of the hematoma. Posthemorrhagic anemia we will give 1 dose of IV iron in the morning check coral adequate iron B12 folate levels A. fib continue heparin drip.Restart warfarin Hypertension resume home medicines Dyslipidemia continue Morbid obesity encouraged weight loss Code Status: Full Code Dain Loya MD 04/05/2019 12:54 PM Sammie Petit RN - 04/05/2019 1:52 AM PSTPatient was found sitting on the edge of the bed by this RN . Was confused, disoriented to time and situation stating " when are they going to pick me u p for my surgery?". Reorientation provided. Patient also accidentally pulled one of the IVs where the heparin was running through. Was provided with education to call if needing anythi ng or to get out of bed for assistance. Bed alarm was set for safety. Patient had difficulty voiding, bladder scan done, x1 straight cath was done with 925mls of mike urine out. Right groin site remains soft, CDI. No oozing or hematoma noted. Heparin running at 14u/kg/hr, per Dr. Mullen, it is okay at this rate and not to up titrate it. Rosemary Carrero RN Simin Philip RN - 04/04/2019 7:15 PM PSTMedicated for pain x1. 400ml output in ELSA drain dur ing shift, notified vascular surgery for output >100ml/hour in ELSA drain. Minimal output i n wound vac. Heparin therapeutic x1. Pt due to void. BLE pulses palpable. Josse Hinton RN Dain Viera i, MD - 04/04/2019 3:28 PM PSTFormatting of this note might be different from the or iginal. [facility] Service: Hospitalist Progress Note Hospital Day: LOS: 1 day SUBJECTIVE Patient Summary: Events Overnight: Patient reports left thigh pain. Tolerated the angiogram. Denies a ny chest pain shortness of breath nausea vomiting Scheduled Medications amiodarone 200 mg Oral Daily atenolol 50 mg Oral Daily cholecalciferol 4,000 Units Oral Daily cyanocobalamin 500 mcg Oral Daily docusate-senna 2 tablet Oral BID metoclopramide 10 mg Intravenous Once polyethylene glycol 17 g Oral Daily pravastatin 20 mg Oral Nightly Continuous Infusions heparin infusion 12 Units/kg/hr (04/04/19 1344) OBJECTIVE Vital Signs: BP 144/73 | Pulse 92 | Temp 36.5 C (97.7 F) (Oral) | Resp 16 | Ht 1.727 m (5' 8") | Wt 128.7 kg (283 lb 11.7 oz) | SpO2 99% | BMI 43.14 kg/m Physical Exam General appearance: Alert OX3 Neck: No JVD Lungs:CTAB Heart: S1 S2 audible NO MGR. Abdomen: SNT ND Extremities L thigh wound vac in place Neuro Grossly Intact DATA Recent Labs Lab 04/04/19 1152 04/04/19 0618 04/03/19 2245 04/03/19 1902 04/03/19 1025 03/31/19 0711 WBC 16.08* 11.23* 18.58* < > 12.16* 12.36* 8.30 HGB 8.9* 8.7* 8.3* < > 8.3* 9.0* 15.0 HCT 26.9* 25.9* 24.6* < > 25.4* 27.1* 45.5 PLT 204 177 206 < > 232 213 288 MONOPCT -- -- -- -- 10.40 9.90 9.50 < > = values in this interval not displayed. Recent Labs Lab 04/04/19 1152 04/03/19 1025 03/31/19 0711 NA 138 136 140 K 4.4 4.0 4.0 CL 105 103 105 CO2 26 27 26 BUN 19 20 14 CALCIUM 8.3* 8.9 9.3 ALKPHOS 86 -- -- ALT 12 -- -- AST 25 -- -- Phosphorus: No results found for: PHOS No results for input(s): LABALBU in the last 168 hours. Recent Labs Lab 04/04/19 1152 MG 1.9 No results for input(s): AMYLASE in the last 168 hours. No results for input(s): PHART, PO2ART, [id number], [id number], BEART in the last 168 hours. Recent Labs Lab 04/04/19 1236 04/04/19 0618 04/03/19 1025 03/31/19 0711 INR -- 1.7 2.9 2.9 PTT 54* -- -- -- No results for input(s): TSH in the last 168 hours. Invalid input(s): T3FREE, FREET4 No results for input(s): TROPONINT in the last 168 hours. Invalid input(s): CKTOTAL, TROPONINI, CKMBINDEX Radiology Vas Lower Extremity Arteries Left Result Date: 04/03/2019 ULTRASOUND VENOUS DUPLEX, LEFT GROIN CLINICAL INFORMATION: Heart catheterization 3 days ago . COMPARISON: LOWER EXTREMITY ANY JOINT (03/04/2009); PROCEDURE: Four megahertz curvilinear s onographic grayscale, color flow, spectral Doppler evaluation of the left groin. FINDINGS: T here is a trilobed hemorrhage in the left groin measuring 5.2 x 3.1 by 4.4 cm at the cathete rization site, bulbous 10.1 by 4.6 x 6.2 cm hemorrhage just distal to this, and a 3rd curvil inear hemorrhage anterior and distal to the above hemorrhages measuring 11.0 x 6.2 x 2.9 cm. At the catheterization site, there is a tubular pseudoaneurysm extending through the 1st 2 lobes of the above hemorrhage, with a neck measuring 7 mm at the groin spanning 8.1 cm in le ngth by 1 cm diameter, with bulbous slow flow is seen at the distal tip measuring 2.3 x 2.7 cm. 1. Trilobed extensive hemorrhage in the left groin containing a tubular pseudoaneurysm with a mouth measuring 7 mm at the catheterization site, 1 cm in diameter by 8.1 cm in length, w ith a bulbous tip measuring 2.3 x 2.7 cm distally. 2. Above findings were discussed with Dr. Jamil over the phone. The patient will be sent to the emergency department. Signed by: Na Blanco Shawn Sign Date/Time: 04/03/2019 9:[address] Angiogram Lower Extremity Left W Con Result Date: 04/03/2019 CT ANGIOGRAM ABDOMEN PELVIS AND BILATERAL LOWER EXTREMITY RUNOFF CLINICAL INFORMATION: Dr. Mullen for vascular surgery requesting CT angiogram of the left groin specifically. COMPARIS ON: VAS LOWER EXTREMITY ARTERIES LEFT (04/03/2019); LOWER EXTREMITY ANY JOINT (03/04/2009); [place] OCEDURE: Thin section axial images through the abdomen, pelvis and lower extremities after t he administration of 100ml omnipaque 350 intravenous contrast. 3D and multiplanar reconstruc tions were performed. At least one of the following CT dose optimization techniques were use d: Automated exposure control; Adjustment of mA and/or kV according to patient size; Use of iterative reconstruction technique. FINDINGS: VASCULAR FINDINGS: (For each vessel, the prese nce or absence of atherosclerosis, and the presence or absence of single or multiple stenose s greater than 50%.) Abdominal Aorta: Atherosclerosis without stenosis greater than 50%. Rig ht Common Iliac Artery: Atherosclerosis without stenosis greater than 50%. Right External Il iac Artery: Atherosclerosis without stenosis greater than 50%. Right Common Femoral Artery: Atherosclerosis without stenosis greater than 50%. Right Superficial Femoral Artery: Atheros clerosis without stenosis greater than 50%. Right Popliteal Artery: Atherosclerosis without stenosis greater than 50%. Right Calf: There is enhancement of the anterior tibial, posterio r tibial and peroneal arteries. Left Common Iliac Artery: Atherosclerosis without stenosis g reater than 50%. Left External Iliac Artery: Atherosclerosis without stenosis greater than 5 0%. Left Common Femoral Artery: Atherosclerosis without stenosis greater than 50%. Left Supe rficial Femoral Artery: Atherosclerosis without stenosis greater than 50%. Left femoris prof undus artery: There is active extravasation arising from the proximal femoris profundus lor ry (series 6, image 90) Left Popliteal Artery: Atherosclerosis without stenosis greater than 50%. Left Calf: There is enhancement of the anterior tibial, posterior tibial and peroneal arteries. EXTREMITIES Right Lower Extremity Findings: There are no significant non-vascular findings. Left Lower Extremity Findings: There is a large intramuscular hematoma involving t he left anterior thigh centered in the rectus femoris muscle. There is extensive left thigh soft tissue swelling and fat stranding. ABDOMEN Kidneys: Visualized portion of the kidneys is normal. ABDOMEN AND PELVIS Bowel: Visualized portion of small bowel and colon is normal. Veins: No evidence of venous injury or deep venous thrombosis. Lymph Nodes: No lymphadenopat hy. Peritoneum and Retroperitoneum: No free intraperitoneal gas or fluid. PELVIS Genitourina ry: Visualized bladder is normal appearing. Multiple calcifications are noted in the pelvis . Bones: No lytic or blastic osseous lesions. No acute fracture. Postoperative changes of l eft total knee arthroplasty and L3 through L5 instrumented posterior fusion decompression ar e noted. Active extravasation in the proximal left thigh with appears to originate from the left fem el profunda artery. However, associated venous injury not be excluded. There is a large associated anterior left thigh hematoma with diffuse soft tissue swelling throughout the ent duglas left lower extremity. Signed by: Na Hargrove Matthew Sign Date/Time: 04/03/2019 2:26 P M PROBLEM LIST Principal Problem: Hematoma of left thigh Active Problems: Hypertension Acute pain Symptomatic anemia Atrial fibrillation, chronic Elevated troponin Bleeding Pseudoaneurysm Decreased hemoglobin Chronic atrial fibrillation Essential hypertension Pseudoaneurysm following procedure Acute blood loss anemia Resolved Problems: * No resolved hospital problems. * ASSESSMENT & PLAN Left thigh hematoma most likely secondary to leakage left femoral/profunda artery following recent ablation procedure. She patient underwent angiogram followed Suture ligation of dis tristan profunda femoral arteriotomy and evacuation of the hematoma. Posthemorrhagic anemia we will give 1 dose of IV iron in the morning check iron B12 folate levels A. fib continue heparin drip Hypertension resume home medicines Dyslipidemia continue Code Status: Full Code Dain Loya MD 04/04/2019 3:29 PM Mary Grace Jessica RN - 04/04/2019 1:10 PM PSTPharmacy spoke with ordering MD, Dr. Mullen, in reference t o Heparin order. Clarified written dose of 7.7 ml/hr instead of using the hospital standard heparin dosing. MD aware that pt's wt is 128.7 kg but is using 63.9kg wt for dose MD wants . PTT drawn before heparin started, PT/INR already drawn this morning. Heparin started at 7 .7 ml/hr per MD order. Breana Kumar DO - 04/04/2019 12:10 PM PST80 ml of omnipaque 2419 mGy radiation 12.9 min fluoro time Rosemary Petit RN - 04/04/2019 2:12 AM PSTPatient admitted to floor at 2225 transported via gurney. 1 un it of FFP was started in ED at the time of transport, no complications noted. Large bruising on left thigh noted, denies numbness or tinging on affected extremity, c/o pain with moveme nt or activity. Another unit of FFP was given, VS remained stable. Patient stated her LBM wa s Thursday 03/30, stool softener given. 2 units of PRBC ordered, 1 unit currently running. No n ew complaints at this time. Will continue to monitor. Rosemary Carrero RN roctor, Val Duncan [facility] - 04/03/2019 8:25 PM PSTClinical Pharmacy Note: Vitamin K ordered by ED provider as 10 mg SQ once for patient on warfarin with INR 2.[address] showing: Active extravasation in the proximal left thigh with appears to originate from t he left femoris profunda artery. However, associated venous injury not be excluded. There is a large associated anterior left thigh hematoma with diffuse soft tissue swelling through out the entire left lower extremity. SubQ route has fallen out of favor due to erratic and unpredictable absorption. I recommend ed changing route to IVPB which is recommended for patient with major bleeding. This was acc epted by admitting MD Dr. Bhakta. IVPB order entered however received call from RN that SQ vitamin K already given but was no t able to be scanned at time of administration. IVPB order was then discontinued. Thank you, Val Holliday, PharmD, BCPS documented in t his encounter Plan of Treatment +--------+---------+ + + + | Date | Type | Specialty | Care Team | Description | +--------+---------+ + + + | 10/06/ | Office | Cardiology | Loulou, Elvin | | | 2019 | Visit | | MD [address] | | | | | | [email or web address] | | | | | | [place] | | | | | | [address] | | | | | | | | +--------+---------+ + + + + + +--------+ + + | Name | Type | Priori | Associated Diagnoses | Date/Time | | | | ty | | | + + +--------+ + + | IR Angiogram Lower | Imaging | JANIE | | 04/04/2019 10:42 AM | | Extremity Left | | | | PST | + + +--------+ + + | Red Blood Cells | Blood - | Routin | | 04/09/2019 11:24 PM | | (PRBC) - Transfuse | Nursing | e | | PST | | | Transfusion | | | | + + +--------+ + + + +---------+--------+ + + | Name | Type | Priori | Associated Diagnoses | Order Schedule | | | | ty | | | + +---------+--------+ + + | IR Angiogram Lower | Imaging | JANIE | | One time imaging One | | Extremity Left | | | | time imaging for 1 | | | | | | Occurrences starting | | | | | | 04/04/2019 until | | | | | | 04/04/2019 | + +---------+--------+ + + + + +--------+ + + | Name | Type | Priori | Associated Diagnoses | Order Schedule | | | | ty | | | + + +--------+ + + | Ambulatory Referral | Outpatient | Routin | Hematoma of left | Ordered: 04/09/2019 | | to [facility] | Referral | e | thigh, subsequent | | | Surgery | | | encounter | | + + +--------+ + + documented as of this encounter Procedures + +--------+ + + + | Procedure Name | Priori | Date/Time | Associated Diagnosis | Comments | | | ty | | | | + +--------+ + + + | ARRHYTHMIA MONITOR - | | 04/11/2019 | | Results for this | | EXTERNAL SCAN | | 12:00 AM | | procedure are in the | | | | PST | | results section. | + +--------+ + + + | PROTIME INR | Routin | 04/10/2019 | | Results for this | | | e | 5:19 AM | | procedure are in the | | | | PST | | results section. | + +--------+ + + + | CBC WITH | Routin | 04/10/2019 | | Results for this | | DIFFERENTIAL | e | 5:19 AM | | procedure are in the | | | | PST | | results section. | + +--------+ + + + | PHOSPHORUS | Routin | 04/10/2019 | | Results for this | | | e | 5:19 AM | | procedure are in the | | | | PST | | results section. | + +--------+ + + + | COMPREHENSIVE | Routin | 04/10/2019 | | Results for this | | METABOLIC PANEL | e | 5:19 AM | | procedure are in the | | | | PST | | results section. | + +--------+ + + + | TRANSFUSE 2 UNITS | Routin | 04/09/2019 | | | | RED BLOOD CELLS | e | 10:56 PM | | | | | | PST | | | + +--------+ + + + | PRODUCT: RBC | JANIE | 04/09/2019 | | Results for this | | | | 5:02 PM | | procedure are in the | | | | PST | | results section. | + +--------+ + + + | TYPE AND SCREEN | JANIE | 04/09/2019 | | Results for this | | | | 3:55 PM | | procedure are in the | | | | PST | | results section. | + +--------+ + + + | PTT | STAT | 04/09/2019 | | Results for this | | | | 4:18 AM | | procedure are in the | | | | PST | | results section. | + +--------+ + + + | PROTIME INR | Routin | 04/09/2019 | | Results for this | | | e | 4:18 AM | | procedure are in the | | | | PST | | results section. | + +--------+ + + + | CBC WITH | Routin | 04/09/2019 | | Results for this | | DIFFERENTIAL | e | 4:18 AM | | procedure are in the | | | | PST | | results section. | + +--------+ + + + | PHOSPHORUS | Routin | 04/09/2019 | | Results for this | | | e | 4:18 AM | | procedure are in the | | | | PST | | results section. | + +--------+ + + + | COMPREHENSIVE | Routin | 04/09/2019 | | Results for this | | METABOLIC PANEL | e | 4:18 AM | | procedure are in the | | | | PST | | results section. | + +--------+ + + + | PTT | STAT | 04/08/2019 | | Results for this | | | | 4:21 AM | | procedure are in the | | | | PST | | results section. | + +--------+ + + + | PROTIME INR | Routin | 04/08/2019 | | Results for this | | | e | 4:21 AM | | procedure are in the | | | | PST | | results section. | + +--------+ + + + | CBC WITH | Routin | 04/08/2019 | | Results for this | | DIFFERENTIAL | e | 4:21 AM | | procedure are in the | | | | PST | | results section. | + +--------+ + + + | PHOSPHORUS | Routin | 04/08/2019 | | Results for this | | | e | 4:21 AM | | procedure are in the | | | | PST | | results section. | + +--------+ + + + | COMPREHENSIVE | Routin | 04/08/2019 | | Results for this | | METABOLIC PANEL | e | 4:21 AM | | procedure are in the | | | | PST | | results section. | + +--------+ + + + | ECG 12 LEAD | JANIE | 04/07/2019 | | Results for this | | | | 11:17 AM | | procedure are in the | | | | PST | | results section. | + +--------+ + + + | CV EP PROCEDURE | Routin | 04/07/2019 | Chronic atrial | Results for this | | | e | 10:59 AM | fibrillation (HCC) | procedure are in the | | | | PST | | results section. | + +--------+ + + + | PHOSPHORUS | Routin | 04/07/2019 | | Results for this | | | e | 7:02 AM | | procedure are in the | | | | PST | | results section. | + +--------+ + + + | MAGNESIUM | Routin | 04/07/2019 | | Results for this | | | e | 7:02 AM | | procedure are in the | | | | PST | | results section. | + +--------+ + + + | COMPREHENSIVE | Routin | 04/07/2019 | | Results for this | | METABOLIC PANEL | e | 7:02 AM | | procedure are in the | | | | PST | | results section. | + +--------+ + + + | CBC WITH | Routin | 04/07/2019 | | Results for this | | DIFFERENTIAL | e | 6:01 AM | | procedure are in the | | | | PST | | results section. | + +--------+ + + + | PTT | Routin | 04/07/2019 | | Results for this | | | e | 5:34 AM | | procedure are in the | | | | PST | | results section. | + +--------+ + + + | PROTIME INR | Routin | 04/07/2019 | | Results for this | | | e | 5:34 AM | | procedure are in the | | | | PST | | results section. | + +--------+ + + + | PTT | Routin | 04/06/2019 | | Results for this | | | e | 9:03 PM | | procedure are in the | | | | PST | | results section. | + +--------+ + + + | PTT | STAT | 04/06/2019 | | Results for this | | | | 3:15 PM | | procedure are in the | | | | PST | | results section. | + +--------+ + + + | PTT | STAT | 04/06/2019 | | Results for this | | | | 10:25 AM | | procedure are in the | | | | PST | | results section. | + +--------+ + + + | ECG 12 LEAD | Routin | 04/06/2019 | | Results for this | | | e | 9:44 AM | | procedure are in the | | | | PST | | results section. | + +--------+ + + + | PTT | Routin | 04/06/2019 | | Results for this | | | e | 4:13 AM | | procedure are in the | | | | PST | | results section. | + +--------+ + + + | PROTIME INR | Routin | 04/06/2019 | | Results for this | | | e | 4:13 AM | | procedure are in the | | | | PST | | results section. | + +--------+ + + + | CBC WITH | Routin | 04/06/2019 | | Results for this | | DIFFERENTIAL | e | 4:13 AM | | procedure are in the | | | | PST | | results section. | + +--------+ + + + | PHOSPHORUS | Routin | 04/06/2019 | | Results for this | | | e | 4:13 AM | | procedure are in the | | | | PST | | results section. | + +--------+ + + + | MAGNESIUM | Routin | 04/06/2019 | | Results for this | | | e | 4:13 AM | | procedure are in the | | | | PST | | results section. | + +--------+ + + + | COMPREHENSIVE | Routin | 04/06/2019 | | Results for this | | METABOLIC PANEL | e | 4:13 AM | | procedure are in the | | | | PST | | results section. | + +--------+ + + + | PTT | Routin | 04/05/2019 | | Results for this | | | e | 10:01 PM | | procedure are in the | | | | PST | | results section. | + +--------+ + + + | PTT | Routin | 04/05/2019 | | Results for this | | | e | 3:52 PM | | procedure are in the | | | | PST | | results section. | + +--------+ + + + | CBC NO DIFFERENTIAL | Routin | 04/05/2019 | | Results for this | | | e | 11:55 AM | | procedure are in the | | | | PST | | results section. | + +--------+ + + + | PTT | Timed | 04/05/2019 | | Results for this | | | | 8:28 AM | | procedure are in the | | | | PST | | results section. | + +--------+ + + + | CBC NO DIFFERENTIAL | Routin | 04/05/2019 | | Results for this | | | e | 8:28 AM | | procedure are in the | | | | PST | | results section. | + +--------+ + + + | IRON AND IRON | Routin | 04/05/2019 | | Results for this | | BINDING CAPACITY | e | 2:18 AM | | procedure are in the | | | | PST | | results section. | + +--------+ + + + | VITAMIN B-12 | Routin | 04/05/2019 | | Results for this | | | e | 2:18 AM | | procedure are in the | | | | PST | | results section. | + +--------+ + + + | PTT | Timed | 04/05/2019 | | Results for this | | | | 2:18 AM | | procedure are in the | | | | PST | | results section. | + +--------+ + + + | RETIC COUNT | Routin | 04/05/2019 | | Results for this | | | e | 2:18 AM | | procedure are in the | | | | PST | | results section. | + +--------+ + + + | CBC WITH | Routin | 04/05/2019 | | Results for this | | DIFFERENTIAL | e | 2:18 AM | | procedure are in the | | | | PST | | results section. | + +--------+ + + + | PHOSPHORUS | Routin | 04/05/2019 | | Results for this | | | e | 2:18 AM | | procedure are in the | | | | PST | | results section. | + +--------+ + + + | MAGNESIUM | Routin | 04/05/2019 | | Results for this | | | e | 2:18 AM | | procedure are in the | | | | PST | | results section. | + +--------+ + + + | FOLATE | Routin | 04/05/2019 | | Results for this | | | e | 2:18 AM | | procedure are in the | | | | PST | | results section. | + +--------+ + + + | FERRITIN | Routin | 04/05/2019 | | Results for this | | | e | 2:18 AM | | procedure are in the | | | | PST | | results section. | + +--------+ + + + | COMPREHENSIVE | Routin | 04/05/2019 | | Results for this | | METABOLIC PANEL | e | 2:18 AM | | procedure are in the | | | | PST | | results section. | + +--------+ + + + | CBC NO DIFFERENTIAL | Routin | 04/04/2019 | | Results for this | | | e | 11:53 PM | | procedure are in the | | | | PST | | results section. | + +--------+ + + + | PTT | Routin | 04/04/2019 | | Results for this | | | e | 6:42 PM | | procedure are in the | | | | PST | | results section. | + +--------+ + + + | CBC NO DIFFERENTIAL | Routin | 04/04/2019 | | Results for this | | | e | 6:39 PM | | procedure are in the | | | | PST | | results section. | + +--------+ + + + | CBC NO DIFFERENTIAL | Routin | 04/04/2019 | | Results for this | | | e | 4:36 PM | | procedure are in the | | | | PST | | results section. | + +--------+ + + + | PTT | STAT | 04/04/2019 | | Results for this | | | | 12:36 PM | | procedure are in the | | | | PST | | results section. | + +--------+ + + + | CBC NO DIFFERENTIAL | Routin | 04/04/2019 | | Results for this | | | e | 11:52 AM | | procedure are in the | | | | PST | | results section. | + +--------+ + + + | MAGNESIUM | Routin | 04/04/2019 | | Results for this | | | e | 11:52 AM | | procedure are in the | | | | PST | | results section. | + +--------+ + + + | COMPREHENSIVE | Routin | 04/04/2019 | | Results for this | | METABOLIC PANEL | e | 11:52 AM | | procedure are in the | | | | PST | | results section. | + +--------+ + + + | PRODUCT: RBC | STAT | 04/04/2019 | | Results for this | | | | 9:05 AM | | procedure are in the | | | | PST | | results section. | + +--------+ + + + | TRANSFUSE 2 UNITS | Routin | 04/04/2019 | | | | RED BLOOD CELLS | e | 6:25 AM | | | | | | PST | | | + +--------+ + + + | PROTIME INR | Routin | 04/04/2019 | | Results for this | | | e | 6:18 AM | | procedure are in the | | | | PST | | results section. | + +--------+ + + + | CBC NO DIFFERENTIAL | Routin | 04/04/2019 | | Results for this | | | e | 6:18 AM | | procedure are in the | | | | PST | | results section. | + +--------+ + + + | TRANSFUSE 2 UNITS | Routin | 04/04/2019 | | | | RED BLOOD CELLS | e | 4:02 AM | | | | | | PST | | | + +--------+ + + + | TRANSFUSE FROZEN | Routin | 04/04/2019 | | | | PLASMA | e | 1:34 AM | | | | | | PST | | | + +--------+ + + + | TRANSFUSE FROZEN | Routin | 04/04/2019 | | | | PLASMA | e | 1:29 AM | | | | | | PST | | | + +--------+ + + + | CBC NO DIFFERENTIAL | Routin | 04/03/2019 | | Results for this | | | e | 10:45 PM | | procedure are in the | | | | PST | | results section. | + +--------+ + + + | IRON, TOTAL | Add-On | 04/03/2019 | | Results for this | | | | 10:45 PM | | procedure are in the | | | | PST | | results section. | + +--------+ + + + | TROPONIN I | Routin | 04/03/2019 | | Results for this | | | e | 7:45 PM | | procedure are in the | | | | PST | | results section. | + +--------+ + + + | CBC NO DIFFERENTIAL | Routin | 04/03/2019 | | Results for this | | | e | 7:45 PM | | procedure are in the | | | | PST | | results section. | + +--------+ + + + | ECG 12 LEAD | STAT | 04/03/2019 | | Results for this | | | | 7:38 PM | | procedure are in the | | | | PST | | results section. | + +--------+ + + + | PRODUCT: RBC | JANIE | 04/03/2019 | | Results for this | | | | 7:34 PM | | procedure are in the | | | | PST | | results section. | + +--------+ + + + | PRODUCT: PLASMA, | STAT | 04/03/2019 | | Results for this | | FROZEN <24 | | 7:13 PM | | procedure are in the | | | | PST | | results section. | + +--------+ + + + | CBC WITH | STAT | 04/03/2019 | | Results for this | | DIFFERENTIAL | | 7:02 PM | | procedure are in the | | | | PST | | results section. | + +--------+ + + + | TYPE AND SCREEN | STAT | 04/03/2019 | | Results for this | | | | 7:01 PM | | procedure are in the | | | | PST | | results section. | + +--------+ + + + | POC GLUCOSE (NON | Routin | 04/03/2019 | | Results for this | | ORD) | e | 6:57 PM | | procedure are in the | | | | PST | | results section. | + +--------+ + + + | CT ANGIOGRAM LOWER | JANIE | 04/03/2019 | | Results for this | | EXTREMITY LEFT W | | 1:14 PM | | procedure are in the | | CONTRAST | | PST | | results section. | + +--------+ + + + | HC VITAMIN B-12 | Add-On | 04/03/2019 | | Results for this | | | | 10:25 AM | | procedure are in the | | | | PST | | results section. | + +--------+ + + + | PROTIME INR | Routin | 04/03/2019 | | Results for this | | | e | 10:25 AM | | procedure are in the | | | | PST | | results section. | + +--------+ + + + | CBC WITH | STAT | 04/03/2019 | | Results for this | | DIFFERENTIAL | | 10:25 AM | | procedure are in the | | | | PST | | results section. | + +--------+ + + + | FERRITIN | Add-On | 04/03/2019 | | Results for this | | | | 10:25 AM | | procedure are in the | | | | PST | | results section. | + +--------+ + + + | BASIC METABOLIC | STAT | 04/03/2019 | | Results for this | | PANEL | | 10:25 AM | | procedure are in the | | | | PST | | results section. | + +--------+ + + + documented in this encounter Results ARRHYTHMIA MONITOR - EXTERNAL SCAN (04/11/2019 12:00 AM PST) + + + | Narrative | Performed At | + + + | Ordered by an | | | unspecified provider. | | + + + Protime INR (04/10/2019 5:19 AM PST) + + + + + + | Component | Value | Ref Range | Performed | Pathologist | | | | | At | Signature | + + + + + + | INR | 1.4Comment: REFERENCE | | [facility] | | | | RANGE:0.9 - 1.2 [...] | | | | | performed at [facility] [place] | | | | | | [address];[place], [place] | | | | | | [address] | | | | + + + + + + + + | Specimen | + + | Blood | + + + + + + + | Performing | Address | City/State/Zipcode | Phone Number | | Organization | | | | + + + + + | [facility] | [address] | [place] [address] | [phone] | + + + + + Phosphorus (04/10/2019 5:19 AM PST) + + + + + + | Component | Value | Ref Range | Performed | Pathologist | | | | | At | Signature | + + + + + + | Phosphorus | 3.6Comment: Testing | 2.3 - 4.8 mg/dL | [facility] | | | | performed at [facility], [address] | | LABORATORY | | | | [place], | | | | | | [place] [address] | | | | + + + + + + + + | Specimen | + + | Blood | + + + + + + + | Performing | Address | City/State/Zipcode | Phone Number | | Organization | | | | + + + + + | [facility] | [address] | [place] [address] | [phone] | + + + + + Comprehensive Metabolic Panel (04/10/2019 5:19 AM PST) + + + + + + | Component | Value | Ref Range | Performed | Pathologist | | | | | At | Signature | + + + + + + | Na | 137 | 135 - 145 | [facility] | | | | | mmol/L | LABORATORY | | + + + + + + | K | 4.3 | 3.5 - 4.9 | [facility] | | | | | mmol/L | LABORATORY | | + + + + + + | Cl | 102 | 99 - 109 mmol/L | [facility] | | | | | | LABORATORY | | + + + + + + | CO2 | 32 | 23 - 32 mmol/L | [facility] | | | | | | LABORATORY | | + + + + + + | Anion Gap | 7 | 5 - 20 mmol/L | [facility] | | | | | | LABORATORY | | + + + + + + | Glucose | 101 (H) | 65 - 99 mg/dL | [facility] | | | | | | LABORATORY | | + + + + + + | BUN | 12 | 8 - 25 mg/dL | [facility] | | | | | | LABORATORY | | + + + + + + | Creatinine | 0.6 | 0.50 - 1.00 | [facility] | | | | | mg/dL | LABORATORY | | + + + + + + | BUN/Creatin | 20 | | [facility] | | | ine Ratio | | | LABORATORY | | + + + + + + | Calcium | 8.2 (L) | 8.5 - 10.5 | [facility] | | | | | mg/dL | LABORATORY | | + + + + + + | Protein, | 5.7 (L) | 6.3 - 8.2 g/dL | [facility] | | | Total | | | LABORATORY | | + + + + + + | Albumin | 2.3 (L) | 3.3 - 4.8 g/dL | [facility] | | | | | | LABORATORY | | + + + + + + | Globulin | 3.4 | 1.3 - 4.9 g/dL | [facility] | | | | | | LABORATORY | | + + + + + + | A/G Ratio | 0.7 (L) | 1.0 - 2.4 | [facility] | | | | | | LABORATORY | | + + + + + + | BILIRUBIN, | 1.1 | 0.1 - 1.5 mg/dL | [facility] | | | TOTAL | | | LABORATORY | | + + + + + + | ALK PHOS | 89 | 35 - 115 U/L | [facility] | | | | | | LABORATORY | | + + + + + + | AST | 43 | 10 - 45 U/L | [facility] | | | | | | LABORATORY | | + + + + + + | ALT | 41 | 10 - 65 U/L | [facility] | | | | | | [facility] | | + + + + + + | Estimated | >60Comment: GFR <60: | >60 | [facility] | | | GFR | CHRONIC KIDNEY [...] | | | | | | MDRD IDGA traceable | | | | | | equation.Testing | | | | | | performed at [facility], [address] | | | | | | [facility], | | | | | | [place] [address] | | | | + + + + + + + + | Specimen | + + | Blood | + + + + + + + | Performing | Address | City/State/Zipcode | Phone Number | | Organization | | | | + + + + + | [facility] | [address] | [place] [address] | [phone] | + + + + + CBC with Differential (04/10/2019 5:19 AM PST) + + + + + + | Component | Value | Ref Range | Performed | Pathologist | | | | | At | Signature | + + + + + + | WBC | 7.97 | 3.80 - 11.00 | [facility] | | | | | K/uL | LABORATORY | | + + + + + + | RBC | 3.20 (L) | 3.70 - 5.10 | [facility] | | | | | M/uL | LABORATORY | | + + + + + + | Hemoglobin | 9.5 (L) | 11.3 - 15.5 | [facility] | | | | | g/dL | LABORATORY | | + + + + + + | Hematocrit | 30.9 (L) | 34.0 - 46.0 % | [facility] | | | | | | LABORATORY | | + + + + + + | MCV | 96.6 | 80.0 - 100.0 fl | [facility] | | | | | | LABORATORY | | + + + + + + | MCH | 29.7 | 27.0 - 34.0 pg | [facility] | | | | | | LABORATORY | | + + + + + + | MCHC | 30.7 (L) | 32.0 - 35.5 | [facility] | | | | | g/dL | LABORATORY | | + + + + + + | RDW-SD | 57.5 (H) | 37 - 53 fl | [facility] | | | | | | LABORATORY | | + + + + + + | Platelet | 301 | 150 - 400 K/uL | [facility] | | | Count | | | LABORATORY | | + + + + + + | MPV | 10.5Comment: NO NORMAL | fl | [facility] | | | | RANGE ESTABLISHED | | LABORATORY | | + + + + + + | Diff Type | AUTOMATED | | [facility] | | | | | | LABORATORY | | + + + + + + | % nRBC | 0.6 (H) | 0 /100WBC | [facility] | | | | | | LABORATORY | | + + + + + + | % | 76.20 | % | [facility] | | | Neutrophils | | | LABORATORY | | + + + + + + | IMMATURE | 3.30 | % | [facility] | | | GRANULOCYTE | | | LABORATORY | | + + + + + + | % | 10.00 | % | [facility] | | | Lymphocytes | | | LABORATORY | | + + + + + + | Monocyte % | 7.80 | % | [facility] | | | | | | LABORATORY | | + + + + + + | Eosinophils | 2.40 | % | [facility] | | | % | | | LABORATORY | | + + + + + + | Basophils % | 0.30 | % | [facility] | | | | | | LABORATORY | | + + + + + + | Neutrophils | 6.08 | 1.90 - 7.40 | [facility] | | | , Absolute | | K/uL | LABORATORY | | + + + + + + | IMMATURE | 0.26 (H)Comment: NOTE | 0.00 - 0.07 | [facility] | | | GRANS AB | NEW REFERENCE RANGE | K/uL | LABORATORY | | + + + + + + | Absolute | 0.80 (L) | 1.00 - 3.90 | [facility] | | | Lymphocytes | | K/uL | LABORATORY | | + + + + + + | Absolute | 0.62 | 0.00 - 0.80 | [facility] | | | Monocytes | | K/uL | LABORATORY | | + + + + + + | Eosinophils | 0.19 | 0.00 - 0.50 | [facility] | | | , Absolute | | K/uL | LABORATORY | | + + + + + + | Basophils, | 0.02Comment: Testing | 0.00 - 0.10 | [facility] | | | Absolute | performed at [facility], [address] | [address] | LABORATORY | | | | [address], | | | | | | [place] [address] | | | | + + + + + + + + | Specimen | + + | Blood | + + + + + + + | Performing | Address | City/State/Zipcode | Phone Number | | Organization | | | | + + + + + | [facility] | [address] | [place] [address] | [phone] | + + + + + Red Blood Cells (PRBC) - Crossmatch (04/09/2019 5:02 PM PST) + + + + + + | Component | Value | Ref Range | Performed | Pathologist | | | | | At | Signature | + + + + + + | Product | RED CELL GROUP | | [facility] | | | Code | | | LABORATORY | | + + + + + + | Units | 2 | | [facility] | | | ordered | | | LABORATORY | | + + + + + + | BLOOD BANK | ORDER RECEIVED IN BLOOD | | [facility] | | | COMMENT | BANK. | | LABORATORY | | + + + + + + | BLOOD BANK | Testing performed at | | [facility] | | | COMMENT | [facility];[address] | | LABORATORY | | | | [address];[place] [address] | | | | + + + + + + + + | Specimen | + + | | + + + + + + + | Performing | Address | City/State/Zipcode | Phone Number | | Organization | | | | + + + + + | [facility] | [address] | [place] [address] | [phone] | + + + + + Type and Screen (04/09/2019 3:55 PM PST) + + + + + + | Component | Value | Ref Range | Performed | Pathologist | | | | | At | Signature | + + + + + + | ABO Rh | O POSITIVE | | [facility] | | | | | | LABORATORY | | + + + + + + | Antibody | NEGATIVE | | [facility] | | | Screen | | | LABORATORY | | + + + + + + | BB BAND | [id number] | | [facility] | | | | | | LABORATORY | | + + + + + + | BB BAND | Testing performed at | | [facility] | | | | [facility];[address] | | LABORATORY | | | | [address];[place] [address] | | | | + + + + + + | UNIT # | [id number] | | [facility] | | | | | | LABORATORY | | + + + + + + | Product | LEUKODEPLETED PC | | [facility] | | | Code | | | LABORATORY | | + + + + + + | Unit | 00 | | [facility] | | | Division | | | LABORATORY | | + + + + + + | Unit Status | ISSUED,FINAL | | [facility] | | | | | | LABORATORY | | + + + + + + | Transfusion | OK TO TRANSFUSE | | [facility] | | | Status | | | LABORATORY | | + + + + + + | CROSSMATCH | COMPATIBLE | | [facility] | | | RESULT | | | LABORATORY | | + + + + + + | UNIT # | [id number] | | [facility] | | | | | | LABORATORY | | + + + + + + | Product | LEUKODEPLETED PC,B | | [facility] | | | Code | | | LABORATORY | | + + + + + + | Unit | 00 | | [facility] | | | Division | | | LABORATORY | | + + + + + + | Unit Status | ISSUED,FINAL | | [facility] | | | | | | LABORATORY | | + + + + + + | Transfusion | OK TO TRANSFUSE | | [facility] | | | Status | | | LABORATORY | | + + + + + + | CROSSMATCH | COMPATIBLE | | [facility] | | | RESULT | | | LABORATORY | | + + + + + + + + | Specimen | + + | Blood | + + + + + + + | Performing | Address | City/State/Zipcode | Phone Number | | Organization | | | | + + + + + | [facility] | [address] | [place] [address] | [phone] | + + + + + Protime INR (04/09/2019 4:18 AM PST) + + + + + + | Component | Value | Ref Range | Performed | Pathologist | | | | | At | Signature | + + + + + + | INR | 1.2Comment: REFERENCE | | [facility] | | | | RANGE:0.9 - 1.2 [...] | | | | | performed at [facility];[address] | | | | | | [address];[place] | | | | | | [address] | | | | + + + + + + + + | Specimen | + + | Blood | + + + + + + + | Performing | Address | City/State/Zipcode | Phone Number | | Organization | | | | + + + + + | [facility] | [address] | [place] [address] | [phone] | + + + + + Phosphorus (04/09/2019 4:18 AM PST) + + + + + + | Component | Value | Ref Range | Performed | Pathologist | | | | | At | Signature | + + + + + + | Phosphorus | 4.0Comment: Testing | 2.3 - 4.8 mg/dL | [facility] | | | | performed at [facility];[address] | | LABORATORY | | | | [address];[place], [place] | | | | | | [address] | | | | + + + + + + + + | Specimen | + + | Blood | + + + + + + + | Performing | Address | City/State/Zipcode | Phone Number | | Organization | | | | + + + + + | [facility] | [address] | [place] [address] | [phone] | + + + + + Comprehensive Metabolic Panel (04/09/2019 4:18 AM PST) + + + + + + | Component | Value | Ref Range | Performed | Pathologist | | | | | At | Signature | + + + + + + | Na | 135 | 135 - 145 | [facility] | | | | | mmol/L | LABORATORY | | + + + + + + | K | 4.4 | 3.5 - 4.9 | [facility] | | | | | mmol/L | LABORATORY | | + + + + + + | Cl | 102 | 99 - 109 mmol/L | [facility] | | | | | | LABORATORY | | + + + + + + | CO2 | 32 | 23 - 32 mmol/L | [facility] | | | | | | LABORATORY | | + + + + + + | Anion Gap | 5 | 5 - 20 mmol/L | [facility] | | | | | | LABORATORY | | + + + + + + | Glucose | 111 (H) | 65 - 99 mg/dL | [facility] | | | | | | LABORATORY | | + + + + + + | BUN | 14 | 8 - 25 mg/dL | [facility] | | | | | | LABORATORY | | + + + + + + | Creatinine | 0.55 | 0.50 - 1.00 | [facility] | | | | | mg/dL | LABORATORY | | + + + + + + | BUN/Creatin | 25 | | [facility] | | | ine Ratio | | | LABORATORY | | + + + + + + | Calcium | 8.6 | 8.5 - 10.5 | [facility] | | | | | mg/dL | LABORATORY | | + + + + + + | Protein, | 5.1 (L) | 6.3 - 8.2 g/dL | [facility] | | | Total | | | LABORATORY | | + + + + + + | Albumin | 3.2 (L) | 3.3 - 4.8 g/dL | [facility] | | | | | | LABORATORY | | + + + + + + | Globulin | 1.9 | 1.3 - 4.9 g/dL | [facility] | | | | | | LABORATORY | | + + + + + + | A/G Ratio | 1.7 | 1.0 - 2.4 | [facility] | | | | | | LABORATORY | | + + + + + + | BILIRUBIN, | 1.1 | 0.1 - 1.5 mg/dL | [facility] | | | TOTAL | | | LABORATORY | | + + + + + + | ALK PHOS | 91 | 35 - 115 U/L | [facility] | | | | | | LABORATORY | | + + + + + + | AST | 27 | 10 - 45 U/L | [facility] | | | | | | LABORATORY | | + + + + + + | ALT | 20 | 10 - 65 U/L | [facility] | | | | | | LABORATORY | | + + + + + + | Estimated | >60Comment: GFR <60: | >60 | [facility] | | | GFR | CHRONIC KIDNEY [...] | | | | | | MDRD IDMS traceable | | | | | | equation.Testing | | | | | | performed at [facility];[address] | | [address] [facility];[place], [place] | | | | | | [address] | | | | + + + + + + + + | Specimen | + + | Blood | + + + + + + + | Performing | Address | City/State/Zipcode | Phone Number | | Organization | | | | + + + + + | [facility] | [address] [facility] | [place] [address] | [phone] | + + + + + CBC with Differential (04/09/2019 4:18 AM PST) + + + + + + | Component | Value | Ref Range | Performed | Pathologist | | | | | At | Signature | + + + + + + | WBC | 7.40 | 3.80 - 11.00 | [facility] | | | | | K/uL | LABORATORY | | + + + + + + | RBC | 2.38 (L) | 3.70 - 5.10 | [facility] | | | | | M/uL | LABORATORY | | + + + + + + | Hemoglobin | 7.3 (L) | 11.3 - 15.5 | [facility] | | | | | g/dL | LABORATORY | | + + + + + + | Hematocrit | 23.7 (L) | 34.0 - 46.0 % | [facility] | | | | | | LABORATORY | | + + + + + + | MCV | 99.6 | 80.0 - 100.0 fl | [facility] | | | | | | LABORATORY | | + + + + + + | MCH | 30.7 | 27.0 - 34.0 pg | [facility] | | | | | | LABORATORY | | + + + + + + | MCHC | 30.8 (L) | 32.0 - 35.5 | [facility] | | | | | g/dL | LABORATORY | | + + + + + + | RDW-SD | 55.1 (H) | 37 - 53 fl | [facility] | | | | | | LABORATORY | | + + + + + + | Platelet | 316 | 150 - 400 K/uL | [facility] | | | Count | | | LABORATORY | | + + + + + + | MPV | 10.0Comment: NO NORMAL | fl | [facility] | | | | RANGE ESTABLISHED | | LABORATORY | | + + + + + + | Diff Type | AUTOMATED | | [facility] | | | | | | LABORATORY | | + + + + + + | % nRBC | 0.4 (H) | 0 /100WBC | [facility] | | | | | | LABORATORY | | + + + + + + | % | 69.50 | % | [facility] | | | Neutrophils | | | LABORATORY | | + + + + + + | IMMATURE | 4.20 | % | [facility] | | | GRANULOCYTE | | | LABORATORY | | + + + + + + | % | 13.80 | % | [facility] | | | Lymphocytes | | | LABORATORY | | + + + + + + | Monocyte % | 8.40 | % | [facility] | | | | | | LABORATORY | | + + + + + + | Eosinophils | 3.80 | % | [facility] | | | % | | | LABORATORY | | + + + + + + | Basophils % | 0.30 | % | [facility] | | | | | | LABORATORY | | + + + + + + | Neutrophils | 5.15 | 1.90 - 7.40 | [facility] | | | , Absolute | | K/uL | LABORATORY | | + + + + + + | IMMATURE | 0.31 (H)Comment: NOTE | 0.00 - 0.07 | [facility] | | | GRANS AB | NEW REFERENCE RANGE | K/uL | LABORATORY | | + + + + + + | Absolute | 1.02 | 1.00 - 3.90 | [facility] | | | Lymphocytes | | K/uL | LABORATORY | | + + + + + + | Absolute | 0.62 | 0.00 - 0.80 | [facility] | | | Monocytes | | K/uL | LABORATORY | | + + + + + + | Eosinophils | 0.28 | 0.00 - 0.50 | [facility] | | | , Absolute | | K/uL | LABORATORY | | + + + + + + | Basophils, | 0.02Comment: Testing | 0.00 - 0.10 | [facility] | | | Absolute | performed at [facility];[address] | [address] | LABORATORY | | | | [address];[place] | | | | | | [address] | | | | + + + + + + + + | Specimen | + + | Blood | + + + + + + + | Performing | Address | City/State/Zipcode | Phone Number | | Organization | | | | + + + + + | [facility] | [address] | [place] [address] | [phone] | + + + + + PTT (04/09/2019 4:18 AM PST) + + + + + + | Component | Value | Ref Range | Performed | Pathologist | | | | | At | Signature | + + + + + + | PTT | 33 (H)Comment: Testing | 23 - 32 seconds | [facility] | | | | performed at [facility];[address] | | LABORATORY | | | | [address];[place] | | | | | | [address] | | | | + + + + + + + + | Specimen | + + | Blood | + + + + + + + | Performing | Address | City/State/Zipcode | Phone Number | | Organization | | | | + + + + + | [facility] | [address] | [place] [address] | [phone] | + + + + + Protime INR (04/08/2019 4:21 AM PST) + + + + + + | Component | Value | Ref Range | Performed | Pathologist | | | | | At | Signature | + + + + + + | INR | 1.1Comment: REFERENCE | | [facility] | | | | RANGE:0.9 - 1.2 [...] | | | | | performed at [facility];[employer] | | | | | | [address] [facility];[place], [place] | | | | | | [address] | | | | + + + + + + + + | Specimen | + + | Blood | + + + + + + + | Performing | Address | City/State/Zipcode | Phone Number | | Organization | | | | + + + + + | [facility] | [address] | [place] [address] | [phone] | + + + + + Phosphorus (04/08/2019 4:21 AM PST) + + + + + + | Component | Value | Ref Range | Performed | Pathologist | | | | | At | Signature | + + + + + + | Phosphorus | 3.5Comment: Testing | 2.3 - 4.8 mg/dL | [facility] | | | | performed at [facility];[address] | | LABORATORY | | | | [address];[place], [place] | | | | | | [address] | | | | + + + + + + + + | Specimen | + + | Blood | + + + + + + + | Performing | Address | City/State/Zipcode | Phone Number | | Organization | | | | + + + + + | [facility] | [address] [facility] | [place] [address] | [phone] | + + + + + Comprehensive Metabolic Panel (04/08/2019 4:21 AM PST) + + + + + + | Component | Value | Ref Range | Performed | Pathologist | | | | | At | Signature | + + + + + + | Na | 137 | 135 - 145 | [facility] | | | | | mmol/L | LABORATORY | | + + + + + + | K | 4.3 | 3.5 - 4.9 | [facility] | | | | | mmol/L | LABORATORY | | + + + + + + | Cl | 103 | 99 - 109 mmol/L | [facility] | | | | | | LABORATORY | | + + + + + + | CO2 | 30 | 23 - 32 mmol/L | [facility] | | | | | | LABORATORY | | + + + + + + | Anion Gap | 8 | 5 - 20 mmol/L | [facility] | | | | | | LABORATORY | | + + + + + + | Glucose | 112 (H) | 65 - 99 mg/dL | [facility] | | | | | | LABORATORY | | + + + + + + | BUN | 16 | 8 - 25 mg/dL | [facility] | | | | | | LABORATORY | | + + + + + + | Creatinine | 0.60 | 0.50 - 1.00 | [facility] | | | | | mg/dL | LABORATORY | | + + + + + + | BUN/Creatin | 27 | | [facility] | | | ine Ratio | | | LABORATORY | | + + + + + + | Calcium | 8.7 | 8.5 - 10.5 | [facility] | | | | | mg/dL | LABORATORY | | + + + + + + | Protein, | 5.0 (L) | 6.3 - 8.2 g/dL | [facility] | | | Total | | | LABORATORY | | + + + + + + | Albumin | 3.3 | 3.3 - 4.8 g/dL | [facility] | | | | | | LABORATORY | | + + + + + + | Globulin | 1.7 | 1.3 - 4.9 g/dL | [facility] | | | | | | LABORATORY | | + + + + + + | A/G Ratio | 1.9 | 1.0 - 2.4 | [facility] | | | | | | LABORATORY | | + + + + + + | BILIRUBIN, | 1.3 | 0.1 - 1.5 mg/dL | [facility] | | | TOTAL | | | LABORATORY | | + + + + + + | ALK PHOS | 84 | 35 - 115 U/L | [facility] | | | | | | LABORATORY | | + + + + + + | AST | 25 | 10 - 45 U/L | [facility] | | | | | | LABORATORY | | + + + + + + | ALT | 17 | 10 - 65 U/L | [facility] | | | | | LAB[facility]AT[facility] | | + + + + + + | Estimated | >60Comment: GFR <60: | >60 | [facility] | | | GFR | CHRONIC KIDNEY [...] | | | | | | MDRD IDGA traceable | | | | | | equation.Testing | | | | | | performed at [facility];[employer] | | | | | | [facility];[place], [place] | | | | | | [address] | | | | + + + + + + + + | Specimen | + + | Blood | + + + + + + + | Performing | Address | City/State/Zipcode | Phone Number | | Organization | | | | + + + + + | [facility] | [address] | [place] [address] | [phone] | + + + + + CBC with Differential (04/08/2019 4:21 AM PST) + + + + + + | Component | Value | Ref Range | Performed | Pathologist | | | | | At | Signature | + + + + + + | WBC | 9.76 | 3.80 - 11.00 | [facility] | | | | | K/uL | LABORATORY | | + + + + + + | RBC | 2.34 (L) | 3.70 - 5.10 | [facility] | | | | | M/uL | LABORATORY | | + + + + + + | Hemoglobin | 7.3 (L) | 11.3 - 15.5 | [facility] | | | | | g/dL | LABORATORY | | + + + + + + | Hematocrit | 22.9 (L) | 34.0 - 46.0 % | [facility] | | | | | | LABORATORY | | + + + + + + | MCV | 97.9 | 80.0 - 100.0 fl | [facility] | | | | | | LABORATORY | | + + + + + + | MCH | 31.2 | 27.0 - 34.0 pg | [facility] | | | | | | LABORATORY | | + + + + + + | MCHC | 31.9 (L) | 32.0 - 35.5 | [facility] | | | | | g/dL | LABORATORY | | + + + + + + | RDW-SD | 53.1 (H) | 37 - 53 fl | [facility] | | | | | | LABORATORY | | + + + + + + | Platelet | 275 | 150 - 400 K/uL | [facility] | | | Count | | | LABORATORY | | + + + + + + | MPV | 10.4Comment: NO NORMAL | fl | [facility] | | | | RANGE ESTABLISHED | | LABORATORY | | + + + + + + | Diff Type | AUTOMATED | | [facility] | | | | | | LABORATORY | | + + + + + + | % nRBC | 0.5 (H) | 0 /100WBC | [facility] | | | | | | LABORATORY | | + + + + + + | % | 69.90 | % | [facility] | | | Neutrophils | | | LABORATORY | | + + + + + + | IMMATURE | 2.60 | % | [facility] | | | GRANULOCYTE | | | LABORATORY | | + + + + + + | % | 13.60 | % | [facility] | | | Lymphocytes | | | LABORATORY | | + + + + + + | Monocyte % | 9.40 | % | [facility] | | | | | | LABORATORY | | + + + + + + | Eosinophils | 4.30 | % | [facility] | | | % | | | LABORATORY | | + + + + + + | Basophils % | 0.20 | % | [facility] | | | | | | LABORATORY | | + + + + + + | Neutrophils | 6.82 | 1.90 - 7.40 | [facility] | | | , Absolute | | K/uL | LABORATORY | | + + + + + + | IMMATURE | 0.25 (H)Comment: NOTE | 0.00 - 0.07 | [facility] | | | GRANS AB | NEW REFERENCE RANGE | K/uL | LABORATORY | | + + + + + + | Absolute | 1.33 | 1.00 - 3.90 | [facility] | | | Lymphocytes | | K/uL | LABORATORY | | + + + + + + | Absolute | 0.92 (H) | 0.00 - 0.80 | [facility] | | | Monocytes | | K/uL | LABORATORY | | + + + + + + | Eosinophils | 0.42 | 0.00 - 0.50 | [facility] | | | , Absolute | | K/uL | LABORATORY | | + + + + + + | Basophils, | 0.02Comment: Testing | 0.00 - 0.10 | [facility] | | | Absolute | performed at [facility];[address] | [address] | LABORATORY | | | | [address];[place] | | | | | | [address] | | | | + + + + + + + + | Specimen | + + | Blood | + + + + + + + | Performing | Address | City/State/Zipcode | Phone Number | | Organization | | | | + + + + + | [facility] | [address] | [place] [address] | [phone] | + + + + + PTT (04/08/2019 4:21 AM PST) + + + + + + | Component | Value | Ref Range | Performed | Pathologist | | | | | At | Signature | + + + + + + | PTT | 49 (H)Comment: Testing | 23 - 32 seconds | [facility] | | | | performed at [facility];[address] | | LABORATORY | | | | [address];[place] | | | | | | [address] | | | | + + + + + + + + | Specimen | + + | Blood | + + + + + + + | Performing | Address | City/State/Zipcode | Phone Number | | Organization | | | | + + + + + | [facility] | [address] | [place] [address] | [phone] | + + + + + ECG 12 lead (04/07/2019 11:17 AM PST) + + + + + + | Component | Value | Ref Range | Performed | Pathologist | | | | | At | Signature | + + + + + + | VENTRICULAR | 65 | BPM | [facility] | | | RATE EKG | | | | | + + + + + + | ATRIAL RATE | 65 | BPM | [facility] | | + + + + + + | P-R | 204 | ms | [facility] | | | INTERVAL | | | | | + + + + + + | QRS | 100 | ms | [facility] | | | DURATION | | | | | + + + + + + | Q-T | 450 | ms | [facility] | | | INTERVAL | | | | | + + + + + + | Q-T | 468 | ms | [facility] | | | INTERVAL | | | | | | (CORRECTED) | | | | | + + + + + + | P WAVE AXIS | 8 | degrees | [facility] | | + + + + + + | QRS AXIS | 21 | degrees | [facility] | | + + + + + + | T AXIS | 30 | degrees | [facility] | | + + + + + + | INTERPRETAT | Normal sinus | | [facility] | | | ION TEXT | rhythmNormal ECGWhen | | | | | | compared with ECG of | | | | | | 06-APR-2019 09:44,Sinus | | | | | | rhythm has replaced | | | | | | Atrial flutterVent. rate | | | | | | has decreased BY 39 | | | | | | BPMNonspecific T wave | | | | | | abnormality, improved in | | | | | | Inferior | | | | | | leadsNonspecific T wave | | | | | | abnormality no longer | | | | | | evident in Lateral | | | | | | leadsThis ECG contains | | | | | | Unconfirmed | | | | | | Interpretation | | | | | | Statements. See ED | | | | | | Record for Physician | | | | | | Interpretation. | | | | | | Confirmed by MUSE READ | | | | | | ONLY, -COMPUTER ([id number]), | | | | | | sound editor Dion Bueno | | | | | | Karlos ([id number]) on 04/08/2019 | | | | | | 1:24:26 AM | | | | + + [...] | | | + +---------+ + + CV EP PROCEDURE (04/07/2019 10:59 AM PST) + + | Specimen | + + | | + + + + + | Narrative | Performed At | + + + | See dictated | | | OP Report for details. | | + + + Phosphorus (04/07/2019 7:02 AM PST) + + + + + + | Component | Value | Ref Range | Performed | Pathologist | | | | | At | Signature | + + + + + + | Phosphorus | 2.7Comment: Testing | 2.3 - 4.8 mg/dL | [facility] | | | | performed at [facility], [address] | LABORATORY | | | | [address], | | | | | | [place] [address] | | | | + + + + + + + + | Specimen | + + | Blood | + + + + + + + | Performing | Address | City/State/Zipcode | Phone Number | | Organization | | | | + + + + + | [facility] | [address] | [place] [address] | [phone] | + + + + + Comprehensive Metabolic Panel (04/07/2019 7:02 AM PST) + + + + + + | Component | Value | Ref Range | Performed | Pathologist | | | | | At | Signature | + + + + + + | Na | 136 | 135 - 145 | [facility] | | | | | mmol/L | LABORATORY | | + + + + + + | K | 4.0 | 3.5 - 4.9 | [facility] | | | | | mmol/L | LABORATORY | | + + + + + + | Cl | 104 | 99 - 109 mmol/L | [facility] | | | | | | LABORATORY | | + + + + + + | CO2 | 29 | 23 - 32 mmol/L | [facility] | | | | | | LABORATORY | | + + + + + + | Anion Gap | 7 | 5 - 20 mmol/L | [facility] | | | | | | LABORATORY | | + + + + + + | Glucose | 124 (H) | 65 - 99 mg/dL | [facility] | | | | | | LABORATORY | | + + + + + + | BUN | 12 | 8 - 25 mg/dL | [facility] | | | | | | LABORATORY | | + + + + + + | Creatinine | 0.6 | 0.50 - 1.00 | [facility] | | | | | mg/dL | LABORATORY | | + + + + + + | BUN/Creatin | 20 | | [facility] | | | ine Ratio | | | LABORATORY | | + + + + + + | Calcium | 8.1 (L) | 8.5 - 10.5 | [facility] | | | | | mg/dL | LABORATORY | | + + + + + + | Protein, | 5.9 (L) | 6.3 - 8.2 g/dL | [facility] | | | Total | | | LABORATORY | | + + + + + + | Albumin | 2.3 (L) | 3.3 - 4.8 g/dL | [facility] | | | | | | LABORATORY | | + + + + + + | Globulin | 3.6 | 1.3 - 4.9 g/dL | [facility] | | | | | | LABORATORY | | + + + + + + | A/G Ratio | 0.6 (L) | 1.0 - 2.4 | [facility] | | | | | | LABORATORY | | + + + + + + | BILIRUBIN, | 1.2 | 0.1 - 1.5 mg/dL | [facility] | | | TOTAL | | | LABORATORY | | + + + + + + | ALK PHOS | 87 | 35 - 115 U/L | [facility] | | | | | | LABORATORY | | + + + + + + | AST | 29 | 10 - 45 U/L | [facility] | | | | | | LABORATORY | | + + + + + + | ALT | 22 | 10 - 65 U/L | [facility] | | | | | | LABORATORY | | + + + + + + | Estimated | >60Comment: GFR <60: | >60 | [facility] | | | GFR | CHRONIC KIDNEY [...] | | | | | | MDRD [facility] traceable | | | | | | equation.Testing | | | | | | performed at [facility], [address] | | | | | [facility], | | | | | | [place] [address] | | | | + + + + + + + + | Specimen | + + | Blood | + + + + + + + | Performing | Address | City/State/Zipcode | Phone Number | | Organization | | | | + + + + + | [facility] | [address] | [place] [address] | [phone] | + + + + + Magnesium (04/07/2019 7:02 AM PST) + + + + + + | Component | Value | Ref Range | Performed | Pathologist | | | | | At | Signature | + + + + + + | Magnesium | 2.3Comment: Testing | 1.7 - 2.4 mg/dL | [facility] | | | | performed at [facility], [address] | | LABORATORY | | | | [address], | | | | | | [place] [address] | | | | + + + + + + + + | Specimen | + + | Blood | + + + + + + + | Performing | Address | City/State/Zipcode | Phone Number | | Organization | | | | + + + + + | [facility] | [address] | [place] [address] | [phone] | + + + + + CBC with Differential (04/07/2019 6:01 AM PST) + + + + + + | Component | Value | Ref Range | Performed | Pathologist | | | | | At | Signature | + + + + + + | WBC | 12.07 (H) | 3.80 - 11.00 | [facility] | | | | | K/uL | LABORATORY | | + + + + + + | RBC | 2.50 (L) | 3.70 - 5.10 | [facility] | | | | | M/uL | LABORATORY | | + + + + + + | Hemoglobin | 7.7 (L) | 11.3 - 15.5 | [facility] | | | | | g/dL | LABORATORY | | + + + + + + | Hematocrit | 24.5 (L) | 34.0 - 46.0 % | [facility] | | | | | | LABORATORY | | + + + + + + | MCV | 98.0 | 80.0 - 100.0 fl | [facility] | | | | | | LABORATORY | | + + + + + + | MCH | 30.8 | 27.0 - 34.0 pg | [facility] | | | | | | LABORATORY | | + + + + + + | MCHC | 31.4 (L) | 32.0 - 35.5 | [facility] | | | | | g/dL | LABORATORY | | + + + + + + | RDW-SD | 51.5 | 37 - 53 fl | [facility] | | | | | | LABORATORY | | + + + + + + | Platelet | 264 | 150 - 400 K/uL | [facility] | | | Count | | | LABORATORY | | + + + + + + | MPV | 10.8Comment: NO NORMAL | fl | [facility] | | | | RANGE ESTABLISHED | | LABORATORY | | + + + + + + | Diff Type | AUTOMATED | | [facility] | | | | | | LABORATORY | | + + + + + + | % nRBC | 0.3 (H) | 0 /100WBC | [facility] | | | | | | LABORATORY | | + + + + + + | % | 78.80 | % | [facility] | | | Neutrophils | | | LABORATORY | | + + + + + + | IMMATURE | 1.40 | % | [facility] | | | GRANULOCYTE | | | LABORATORY | | + + + + + + | % | 8.70 | % | [facility] | | | Lymphocytes | | | LABORATORY | | + + + + + + | Monocyte % | 8.90 | % | [facility] | | | | | | LABORATORY | | + + + + + + | Eosinophils | 2.00 | % | [facility] | | | % | | | LABORATORY | | + + + + + + | Basophils % | 0.20 | % | [facility] | | | | | | LABORATORY | | + + + + + + | Neutrophils | 9.51 (H) | 1.90 - 7.40 | [facility] | | | , Absolute | | K/uL | LABORATORY | | + + + + + + | IMMATURE | 0.17 (H)Comment: NOTE | 0.00 - 0.07 | [facility] | | | GRANS AB | NEW REFERENCE RANGE | K/uL | LABORATORY | | + + + + + + | Absolute | 1.05 | 1.00 - 3.90 | [facility] | | | Lymphocytes | | K/uL | LABORATORY | | + + + + + + | Absolute | 1.08 (H) | 0.00 - 0.80 | [facility] | | | Monocytes | | K/uL | LABORATORY | | + + + + + + | Eosinophils | 0.24 | 0.00 - 0.50 | [facility] | | | , Absolute | | K/uL | LABORATORY | | + + + + + + | Basophils, | 0.02Comment: Testing | 0.00 - 0.10 | [facility] | | | Absolute | performed at [facility], [address] | K/uL | LABORATORY | | | | [address], | | | | | | [place] [address] | | | | + + + + + + + + | Specimen | + + | Blood | + + + + + + + | Performing | Address | City/State/Zipcode | Phone Number | | Organization | | | | + + + + + | [facility] | [address] | [place] [address] | [phone] | + + + + + PTT (04/07/2019 5:34 AM PST) + + + + + + | Component | Value | Ref Range | Performed | Pathologist | | | | | At | Signature | + + + + + + | PTT | 48 (H)Comment: Testing | 23 - 32 seconds | [facility] | | | | performed at [facility];[address] | | LABORATORY | | | | [address];[place] | | | | | | [address] | | | | + + + + + + + + | Specimen | + + | Blood | + + + + + + + | Performing | Address | City/State/Zipcode | Phone Number | | Organization | | | | + + + + + | [facility] | [address] | [place] [address] | [phone] | + + + + + Protime INR (04/07/2019 5:34 AM PST) + + + + + + | Component | Value | Ref Range | Performed | Pathologist | | | | | At | Signature | + + + + + + | INR | 1.1Comment: REFERENCE | | [facility] | | | | RANGE:0.9 - 1.2 [...] | | | | | performed at [facility];[employer] | | | | | | [address];[place], [place] | | | | | | [address] | | | | + + + + + + + + | Specimen | + + | Blood | + + + + + + + | Performing | Address | City/State/Zipcode | Phone Number | | Organization | | | | + + + + + | [facility] | [address] | [place] [address] | [phone] | + + + + + PTT (04/06/2019 9:03 PM PST) + + + + + + | Component | Value | Ref Range | Performed | Pathologist | | | | | At | Signature | + + + + + + | PTT | 48 (H)Comment: Testing | 23 - 32 seconds | [facility] | | | | performed at [facility];[address] | | LABORATORY | | | | [address];[place] | | | | | | [address] | | | | + + + + + + + + | Specimen | + + | Blood | + + + + + + + | Performing | Address | City/State/Zipcode | Phone Number | | Organization | | | | + + + + + | [facility] | [address] | [place] [address] | [phone] | + + + + + PTT (04/06/2019 3:15 PM PST) + + + + + + | Component | Value | Ref Range | Performed | Pathologist | | | | | At | Signature | + + + + + + | PTT | 48 (H)Comment: Testing | 23 - 32 seconds | [facility] | | | | performed at [facility];[address] | | LABORATORY | | | | [address];[place] | | | | | | [address] | | | | + + + + + + + + | Specimen | + + | Blood | + + + + + + + | Performing | Address | City/State/Zipcode | Phone Number | | Organization | | | | + + + + + | [facility] | [address] | [place] [address] | [phone] | + + + + + PTT (04/06/2019 10:25 AM PST) + + + + + + | Component | Value | Ref Range | Performed | Pathologist | | | | | At | Signature | + + + + + + | PTT | 40 (H)Comment: Testing | 23 - 32 seconds | [facility] | | | | performed at [facility];[address] | | LABORATORY | | | | [address];[place] | | | | | | [address] | | | | + + + + + + + + | Specimen | + + | Blood | + + + + + + + | Performing | Address | City/State/Zipcode | Phone Number | | Organization | | | | + + + + + | [facility] | [address] | [place] [address] | [phone] | + + + + + ECG 12 lead (04/06/2019 9:44 AM PST) + + + + + + | Component | Value | Ref Range | Performed | Pathologist | | | | | At | Signature | + + + + + + | VENTRICULAR | 104 | BPM | [facility] | | | RATE EKG | | | | | + + + + + + | ATRIAL RATE | 329 | BPM | [facility] | | + + + + + + | QRS | 100 | ms | [facility] | | | DURATION | | | | | + + + + + + | Q-T | 362 | ms | [facility] | | | INTERVAL | | | | | + + + + + + | Q-T | 476 | ms | [facility] | | | INTERVAL | | | | | | (CORRECTED) | | | | | + + + + + + | QRS AXIS | 28 | degrees | [facility] | | + + + + + + | T AXIS | 73 | degrees | [facility] | | + + + + + + | INTERPRETAT | Atrial flutter with | | [facility] | | | ION TEXT | variable A-V block with | | | | | | premature ventricular or | | | | | | aberrantly conducted | | | | | | complexesNonspecific T | | | | | | wave abnormalityAbnormal | | | | | | ECGWhen compared with | | | | | | ECG of 03-APR-2019 | | | | | | 19:38,Atrial flutter has | | | | | | replaced Sinus | | | | | | rhythmNonspecific T wave | | | | | | abnormality, worse in | | | | | | Inferior leadsThis ECG | | | | | | contains Unconfirmed | | | | | | Interpretation | | | | | | Statements. See ED | | | | | | Record for Physician | | | | | | Interpretation. | | | | | | Confirmed by MUSE READ | | | | | | ONLY, -COMPUTER ([id number]), | | | | | | sound editor Destini Moy | | | | | | (18) on 04/06/2019 | | | | | | 12:56:17 PM | | | | + + [...] | | | + +---------+ + + PTT (04/06/2019 4:13 AM PST) + + + + + + | Component | Value | Ref Range | Performed | Pathologist | | | | | At | Signature | + + + + + + | PTT | 49 (H)Comment: Testing | 23 - 32 seconds | [facility] | | | | performed at [facility];[address] | | LABORATORY | | | | [address];[place] | | | | | | [address] | | | | + + + + + + + + | Specimen | + + | | + + + + + + + | Performing | Address | City/State/Zipcode | Phone Number | | Organization | | | | + + + + + | [facility] | [address] | [place] [address] | [phone] | + + + + + Protime INR (04/06/2019 4:13 AM PST) + + + + + + | Component | Value | Ref Range | Performed | Pathologist | | | | | At | Signature | + + + + + + | INR | 1.0Comment: REFERENCE | | [facility] | | | | RANGE:0.9 - 1.2 [...] | | | | | performed at [facility];[address] | | | [address];[place] | | | | | | [address] | | | | + + + + + + + + | Specimen | + + | Blood | + + + + + + + | Performing | Address | City/State/Zipcode | Phone Number | | Organization | | | | + + + + + | [facility] | [address] | [place] [address] | [phone] | + + + + + Phosphorus (04/06/2019 4:13 AM PST) + + + + + + | Component | Value | Ref Range | Performed | Pathologist | | | | | At | Signature | + + + + + + | Phosphorus | 2.7Comment: Testing | 2.3 - 4.8 mg/dL | [facility] | | | | performed at [facility];[address] | | LABORATORY | | | | [address];[place] | | | | | | [address] | | | | + + + + + + + + | Specimen | + + | Blood | + + + + + + + | Performing | Address | City/State/Zipcode | Phone Number | | Organization | | | | + + + + + | [facility] | [address] | [place] [address] | [phone] | + + + + + Comprehensive Metabolic Panel (04/06/2019 4:13 AM PST) + + + + + + | Component | Value | Ref Range | Performed | Pathologist | | | | | At | Signature | + + + + + + | Na | 139 | 135 - 145 | [facility] | [...] + + + + | CO2 | 28 | 23 - 32 mmol/L | [facility] | | | | | | LABORATORY | | + + + + + + | Anion Gap | 10 | 5 - 20 mmol/L | [facility] | | | | | | LABORATORY | | + + + + + + | Glucose | 138 (H) | 65 - 99 mg/dL | [facility] | | | | | | LABORATORY | | + + + + + + | BUN | 14 | 8 - 25 mg/dL | [facility] | | | | | | LABORATORY | | + + + + + + | Creatinine | 0.58 | 0.50 - 1.00 | [facility] | | | | | mg/dL | LABORATORY | | + + + + + + | BUN/Creatin | 24 | | [facility] | | | ine Ratio | | | LABORATORY | | + + + + + + | Calcium | 8.6 | 8.5 - 10.5 | [facility] | | | | | mg/dL | LABORATORY | | + + + + + + | Protein, | 5.4 (L) | 6.3 - 8.2 g/dL | [facility] | | | Total | | | LABORATORY | | + + + + + + | Albumin | 3.3 | 3.3 - 4.8 g/dL | [facility] | | | | | | LABORATORY | | + + + + + + | Globulin | 2.1 | 1.3 - 4.9 g/dL | [facility] | | | | | | LABORATORY | | + + + + + + | A/G Ratio | 1.6 | 1.0 - 2.4 | [facility] | | | | | | LABORATORY | | + + + + + + | BILIRUBIN, | 1.5 | 0.1 - 1.5 mg/dL | [facility] | | | TOTAL | | | LABORATORY | | + + + + + + | ALK PHOS | 91 | 35 - 115 U/L | [facility] | | | | | | LABORATORY | | + + + + + + | AST | 37 | 10 - 45 U/L | [facility] | | | | | | LABORATORY | | + + + + + + | ALT | 15 | 10 - 65 U/L | [facility] | | | | | | LABORATORY | | + + + + + + | Estimated | >60Comment: GFR <60: | >60 | [facility] | | | GFR | CHRONIC KIDNEY [...] | | | | | | MDRD IDMS traceable | | | | | | equation.Testing | | | | | | performed at [facility];[address] | | | | | | [facility];[place], [place] | | | | | | [address] | | | | + + + + + + + + | Specimen | + + | Blood | + + + + + + + | Performing | Address | City/State/Zipcode | Phone Number | | Organization | | | | + + + + + | [facility] | [address] | [place] [address] | [phone] | + + + + + CBC with Differential (04/06/2019 4:13 AM PST) + + + + + + | Component | Value | Ref Range | Performed | Pathologist | | | | | At | Signature | + + + + + + | WBC | 9.61 | 3.80 - 11.00 | [facility] | | | | | K/uL | LABORATORY | | + + + + + + | RBC | 2.55 (L) | 3.70 - 5.10 | [facility] | | | | | M/uL | LABORATORY | | + + + + + + | Hemoglobin | 7.7 (L) | 11.3 - 15.5 | [facility] | | | | | g/dL | LABORATORY | | + + + + + + | Hematocrit | 24.1 (L) | 34.0 - 46.0 % | [facility] | | | | | | LABORATORY | | + + + + + + | MCV | 94.5 | 80.0 - 100.0 fl | [facility] | | | | | | LABORATORY | | + + + + + + | MCH | 30.2 | 27.0 - 34.0 pg | [facility] | | | | | | LABORATORY | | + + + + + + | MCHC | 32.0 | 32.0 - 35.5 | [facility] | | | | | g/dL | LABORATORY | | + + + + + + | RDW-SD | 49.9 | 37 - 53 fl | [facility] | | | | | | LABORATORY | | + + + + + + | Platelet | 231 | 150 - 400 K/uL | [facility] | | | Count | | | LABORATORY | | + + + + + + | MPV | 10.6Comment: NO NORMAL | fl | [facility] | | | | RANGE ESTABLISHED | | LABORATORY | | + + + + + + | Diff Type | AUTOMATED | | [facility] | | | | | | LABORATORY | | + + + + + + | % nRBC | 0.5 (H) | 0 /100WBC | [facility] | | | | | | LABORATORY | | + + + + + + | % | 79.50 | % | [facility] | | | Neutrophils | | | LABORATORY | | + + + + + + | IMMATURE | 2.40 | % | [facility] | | | GRANULOCYTE | | | LABORATORY | | + + + + + + | % | 6.70 | % | [facility] | | | Lymphocytes | | | LABORATORY | | + + + + + + | Monocyte % | 9.50 | % | [facility] | | | | | | LABORATORY | | + + + + + + | Eosinophils | 1.80 | % | [facility] | | | % | | | LABORATORY | | + + + + + + | Basophils % | 0.10 | % | [facility] | | | | | | LABORATORY | | + + + + + + | Neutrophils | 7.65 (H) | 1.90 - 7.40 | [facility] | | | , Absolute | | K/uL | LABORATORY | | + + + + + + | IMMATURE | 0.23 (H)Comment: NOTE | 0.00 - 0.07 | [facility] | | | GRANS AB | NEW REFERENCE RANGE | K/uL | LABORATORY | | + + + + + + | Absolute | 0.64 (L) | 1.00 - 3.90 | [facility] | | | Lymphocytes | | K/uL | LABORATORY | | + + + + + + | Absolute | 0.91 (H) | 0.00 - 0.80 | [facility] | | | Monocytes | | K/uL | LABORATORY | | + + + + + + | Eosinophils | 0.17 | 0.00 - 0.50 | [facility] | | | , Absolute | | K/uL | LABORATORY | | + + + + + + | Basophils, | 0.01Comment: Testing | 0.00 - 0.10 | [facility] | | | Absolute | performed at [facility];[address] | K/u[address] | LABORATORY | | | | [facility];[place], [place] | | | | | | [address] | | | | + + + + + + + + | Specimen | + + | Blood | + + + + + + + | Performing | Address | City/State/Zipcode | Phone Number | | Organization | | | | + + + + + | [facility] | [address] | [place] [address] | [phone] | + + + + + Magnesium (04/06/2019 4:13 AM PST) + + + + + + | Component | Value | Ref Range | Performed | Pathologist | | | | | At | Signature | + + + + + + | Magnesium | 1.9Comment: Testing | 1.7 - 2.4 mg/dL | [facility] | | | | performed at [facility];[address] | | LABORATORY | | | | [address];[place] | | | | | | [address] | | | | + + + + + + + + | Specimen | + + | Blood | + + + + + + + | Performing | Address | City/State/Zipcode | Phone Number | | Organization | | | | + + + + + | [facility] | [address] | [place] [address] | [phone] | + + + + + PTT (04/05/2019 10:01 PM PST) + + + + + + | Component | Value | Ref Range | Performed | Pathologist | | | | | At | Signature | + + + + + + | PTT | 41 (H)Comment: Testing | 23 - 32 seconds | [facility] | | | | performed at [facility];[address] | | LABORATORY | | | | [address];[place] | | | | | | [address] | | | | + + + + + + + + | Specimen | + + | Blood | + + + + + + + | Performing | Address | City/State/Zipcode | Phone Number | | Organization | | | | + + + + + | [facility] | [address] | [place] [address] | [phone] | + + + + + PTT (04/05/2019 3:52 PM PST) + + + + + + | Component | Value | Ref Range | Performed | Pathologist | | | | | At | Signature | + + + + + + | PTT | 55 (H)Comment: Testing | 23 - 32 seconds | [facility] | | | | performed at [facility];[address] | | LABORATORY | | | | [address];[place] | | | | | | [address] | | | | + + + + + + + + | Specimen | + + | Blood | + + + + + + + | Performing | Address | City/State/Zipcode | Phone Number | | Organization | | | | + + + + + | [facility] | [address] | [place] [address] | [phone] | + + + + + CBC no Differential (04/05/2019 11:55 AM PST) + + + + + + | Component | Value | Ref Range | Performed | Pathologist | | | | | At | Signature | + + + + + + | WBC | 11.92 (H) | 3.80 - 11.00 | [facility] | | | | | K/uL | LABORATORY | | + + + + + + | RBC | 2.67 (L) | 3.70 - 5.10 | [facility] | | | | | M/uL | LABORATORY | | + + + + + + | Hemoglobin | 8.2 (L) | 11.3 - 15.5 | [facility] | | | | | g/dL | LABORATORY | | + + + + + + | Hematocrit | 25.3 (L) | 34.0 - 46.0 % | [facility] | | | | | | LABORATORY | | + + + + + + | MCV | 94.8 | 80.0 - 100.0 fl | [facility] | | | | | | LABORATORY | | + + + + + + | MCH | 30.7 | 27.0 - 34.0 pg | [facility] | | | | | | LABORATORY | | + + + + + + | MCHC | 32.4 | 32.0 - 35.5 | [facility] | | | | | g/dL | LABORATORY | | + + + + + + | RDW-SD | 50.3 | 37 - 53 fl | [facility] | | | | | | LABORATORY | | + + + + + + | Platelet | 222 | 150 - 400 K/uL | [facility] | | | Count | | | LABORATORY | | + + + + + + | MPV | 11.6Comment: NO NORMAL | fl | [facility] | | | | RANGE ESTABLISHEDTesting | | LABORATORY | | | | performed at [facility], [address] | | | [address] | [address], | | | | | | [place] [address] | | | | + + + + + + + + | Specimen | + + | Blood | + + + + + + + | Performing | Address | City/State/Zipcode | Phone Number | | Organization | | | | + + + + + | [facility] | [address] | [place] [address] | [phone] | + + + + + PTT (04/05/2019 8:28 AM PST) + + + + + + | Component | Value | Ref Range | Performed | Pathologist | | | | | At | Signature | + + + + + + | PTT | 66 (H)Comment: Testing | 23 - 32 seconds | [facility] | | | | performed at [facility];[address] | | LABORATORY | | | | [address];[place] | | | | | | [address] | | | | + + + + + + + + | Specimen | + + | Blood | + + + + + + + | Performing | Address | City/State/Zipcode | Phone Number | | Organization | | | | + + + + + | [facility] | [address] | [place] [address] | [phone] | + + + + + CBC no Differential (04/05/2019 8:28 AM PST) + + + + + + | Component | Value | Ref Range | Performed | Pathologist | | | | | At | Signature | + + + + + + | WBC | 11.60 (H) | 3.80 - 11.00 | [facility] | | | | | K/uL | LABORATORY | | + + + + + + | RBC | 2.48 (L) | 3.70 - 5.10 | [facility] | | | | | M/uL | LABORATORY | | + + + + + + | Hemoglobin | 7.6 (L) | 11.3 - 15.5 | [facility] | | | | | g/dL | LABORATORY | | + + + + + + | Hematocrit | 23.8 (L) | 34.0 - 46.0 % | [facility] | | | | | | LABORATORY | | + + + + + + | MCV | 96.0 | 80.0 - 100.0 fl | [facility] | | | | | | LABORATORY | | + + + + + + | MCH | 30.6 | 27.0 - 34.0 pg | [facility] | | | | | | LABORATORY | | + + + + + + | MCHC | 31.9 (L) | 32.0 - 35.5 | [facility] | | | | | g/dL | LABORATORY | | + + + + + + | RDW-SD | 51.9 | 37 - 53 fl | [facility] | | | | | | LABORATORY | | + + + + + + | Platelet | 211 | 150 - 400 K/uL | [facility] | | | Count | | | LABORATORY | | + + + + + + | MPV | 11.4Comment: NO NORMAL | fl | [facility] | | | | RANGE ESTABLISHED | | LABORATORY | | + + + + + + | Diff Type | AUTOMATEDComment: | | [facility] | | | | Testing performed at | | LABORATORY | | | | [facility], [address] | | | | | | [place] | | | | | | [address] | | | | + + + + + + + + | Specimen | + + | Blood | + + + + + + + | Performing | Address | City/State/Zipcode | Phone Number | | Organization | | | | + + + + + | [facility] | [address] | [place] [address] | [phone] | + + + + + Phosphorus (04/05/2019 2:18 AM PST) + + + + + + | Component | Value | Ref Range | Performed | Pathologist | | | | | At | Signature | + + + + + + | Phosphorus | 3.1Comment: Testing | 2.3 - 4.8 mg/dL | [facility] | | | | performed at [facility];[address] | | LABORATORY | | | | [address];[place], [place] | | | | | | [address] | | | | + + + + + + + + | Specimen | + + | Blood | + + + + + + + | Performing | Address | City/State/Zipcode | Phone Number | | Organization | | | | + + + + + | [facility] | [address] | [place] [address] | [phone] | + + + + + Comprehensive Metabolic Panel (04/05/2019 2:18 AM PST) + + + + + + | Component | Value | Ref Range | Performed | Pathologist | | | | | At | Signature | + + + + + + | Na | 137 | 135 - 145 | [facility] | | | | | mmol/L | LABORATORY | | + + + + + + | K | 4.0 | 3.5 - 4.9 | [facility] | | | | | mmol/L | LABORATORY | | + + + + + + | Cl | 104 | 99 - 109 mmol/L | [facility] | | | | | | LABORATORY | | + + + + + + | CO2 | 26 | 23 - 32 mmol/L | [facility] | | | | | | LABORATORY | | + + + + + + | Anion Gap | 11 | 5 - 20 mmol/L | [facility] | | | | | | LABORATORY | | + + + + + + | Glucose | 126 (H) | 65 - 99 mg/dL | [facility] | | | | | | LABORATORY | | + + + + + + | BUN | 17 | 8 - 25 mg/dL | [facility] | | | | | | LABORATORY | | + + + + + + | Creatinine | 0.58 | 0.50 - 1.00 | [facility] | | | | | mg/dL | LABORATORY | | + + + + + + | BUN/Creatin | 29 | | [facility] | | | ine Ratio | | | LABORATORY | | + + + + + + | Calcium | 8.6 | 8.5 - 10.5 | [facility] | | | | | mg/dL | LABORATORY | | + + + + + + | Protein, | 5.3 (L) | 6.3 - 8.2 g/dL | [facility] | | | Total | | | LABORATORY | | + + + + + + | Albumin | 3.4 | 3.3 - 4.8 g/dL | [facility] | | | | | | LABORATORY | | + + + + + + | Globulin | 1.9 | 1.3 - 4.9 g/dL | [facility] | | | | | | LABORATORY | | + + + + + + | A/G Ratio | 1.8 | 1.0 - 2.4 | [facility] | | | | | | LABORATORY | | + + + + + + | BILIRUBIN, | 1.4 | 0.1 - 1.5 mg/dL | [facility] | | | TOTAL | | | LABORATORY | | + + + + + + | ALK PHOS | 82 | 35 - 115 U/L | [facility] | | | | | | LABORATORY | | + + + + + + | AST | 38 | 10 - 45 U/L | [facility] | | | | | | LABORATORY | | + + + + + + | ALT | 12 | 10 - 65 U/L | [facility] | | | | | | LABORATORY | | + + + + + + | Estimated | >60Comment: GFR <60: | >60 | [facility] | | | GFR | CHRONIC KIDNEY [...] | | | | | | MDRD [facility] traceable | | | | | | equation.Testing | | | | | | performed at [facility];[address] | | | | | | [facility];[place], [place] | | | | | | [address] | | | | + + + + + + + + | Specimen | + + | Blood | + + + + + + + | Performing | Address | City/State/Zipcode | Phone Number | | Organization | | | | + + + + + | [facility] | [address] [facility] [facility] | [place] [address] | [phone] | + + + + + CBC with Differential (04/05/2019 2:18 AM PST) + + + + + + | Component | Value | Ref Range | Performed | Pathologist | | | | | At | Signature | + + + + + + | WBC | 12.93 (H) | 3.80 - 11.00 | [facility] | | | | | K/uL | LABORATORY | | + + + + + + | RBC | 2.58 (L) | 3.70 - 5.10 | [facility] | | | | | M/uL | LABORATORY | | + + + + + + | Hemoglobin | 7.9 (L) | 11.3 - 15.5 | [facility] | | | | | g/dL | LABORATORY | | + + + + + + | Hematocrit | 24.3 (L) | 34.0 - 46.0 % | [facility] | | | | | | LABORATORY | | + + + + + + | MCV | 94.2 | 80.0 - 100.0 fl | [facility] | | | | | | LABORATORY | | + + + + + + | MCH | 30.6 | 27.0 - 34.0 pg | [facility] | | | | | | LABORATORY | | + + + + + + | MCHC | 32.5 | 32.0 - 35.5 | [facility] | | | | | g/dL | LABORATORY | | + + + + + + | RDW-SD | 52.2 | 37 - 53 fl | [facility] | | | | | | LABORATORY | | + + + + + + | Platelet | 221 | 150 - 400 K/uL | [facility] | | | Count | | | LABORATORY | | + + + + + + | MPV | 10.8Comment: NO NORMAL | fl | [facility] | | | | RANGE ESTABLISHED | | LABORATORY | | + + + + + + | Diff Type | AUTOMATED | | [facility] | | | | | | LABORATORY | | + + + + + + | % nRBC | 0.4 (H) | 0 /100WBC | [facility] | | | | | | LABORATORY | | + + + + + + | % | 81.10 | % | [facility] | | | Neutrophils | | | LABORATORY | | + + + + + + | IMMATURE | 0.90 | % | [facility] | | | GRANULOCYTE | | | LABORATORY | | + + + + + + | % | 7.80 | % | [facility] | | | Lymphocytes | | | LABORATORY | | + + + + + + | Monocyte % | 9.40 | % | [facility] | | | | | | LABORATORY | | + + + + + + | Eosinophils | 0.60 | % | [facility] | | | % | | | LABORATORY | | + + + + + + | Basophils % | 0.20 | % | [facility] | | | | | | LABORATORY | | + + + + + + | Neutrophils | 10.48 (H) | 1.90 - 7.40 | [facility] | | | , Absolute | | K/uL | LABORATORY | | + + + + + + | IMMATURE | 0.12 (H)Comment: NOTE | 0.00 - 0.07 | [facility] | | | GRANS AB | NEW REFERENCE RANGE | K/uL | LABORATORY | | + + + + + + | Absolute | 1.01 | 1.00 - 3.90 | [facility] | | | Lymphocytes | | K/uL | LABORATORY | | + + + + + + | Absolute | 1.21 (H) | 0.00 - 0.80 | [facility] | | | Monocytes | | K/uL | LABORATORY | | + + + + + + | Eosinophils | 0.08 | 0.00 - 0.50 | [facility] | | | , Absolute | | K/uL | LABORATORY | | + + + + + + | Basophils, | 0.03Comment: Testing | 0.00 - 0.10 | [facility] | | | Absolute | performed at [facility] [place] | K/uL | LABORATORY | | | | [address] [facility];[place], [place] | | | | | | [address] | | | | + + + + + + + + | Specimen | + + | Blood | + + + + + + + | Performing | Address | City/State/Zipcode | Phone Number | | Organization | | | | + + + + + | [facility] | [address] | [place] [address] | [phone] | + + + + + PTT (04/05/2019 2:18 AM PST) + + + + + + | Component | Value | Ref Range | Performed | Pathologist | | | | | At | Signature | + + + + + + | PTT | 45 (H)Comment: Testing | 23 - 32 seconds | [facility] | | | | performed at [facility] [place];[address] | | LABORATORY | | | | [address];[place] | | | | | | [address] | | | | + + + + + + + + | Specimen | + + | Blood | + + + + + + + | Performing | Address | City/State/Zipcode | Phone Number | | Organization | | | | + + + + + | [facility] | [address] | [place] [address] | [phone] | + + + + + Vitamin B-12 (04/05/2019 2:18 AM PST) + + + + + + | Component | Value | Ref Range | Performed | Pathologist | | | | | At | Signature | + + + + + + | VITAMIN | 747Comment: Testing | 254 - 1,320 | [facility] | | | B-12 | performed at [facility], [address] | pg/mL | LABORATORY | | | | [address], | | | | | | [place] [address] | | | | + + + + + + + + | Specimen | + + | Blood | + + + + + + + | Performing | Address | City/State/Zipcode | Phone Number | | Organization | | | | + + + + + | [facility] LABORATORY | [address] | [place] [address] | [phone] | + + + + + Retic Count (04/05/2019 2:18 AM PST) + + + + + + | Component | Value | Ref Range | Performed | Pathologist | | | | | At | Signature | + + + + + + | % | 3.3 (H)Comment: Testing | 0.4 - 2.7 % | [facility] | | | Reticulocyt | performed at [facility];[address] | | LABORATORY | | | e Count | [address];[place] | | | | | | [address] | | | | + + + + + + + + | Specimen | + + | Blood | + + + + + + + | Performing | Address | City/State/Zipcode | Phone Number | | Organization | | | | + + + + + | [facility] | [address] | [place] [address] | [phone] | + + + + + Iron and Iron Binding Capacity (04/05/2019 2:18 AM PST) + + + + + + | Component | Value | Ref Range | Performed | Pathologist | | | | | At | Signature | + + + + + + | Iron | 30 | 30 - 180 ug/dL | [facility] | | | | | | LABORATORY | | + + + + + + | Iron | 259 (L) | 260 - 490 ug/dL | [facility] | | | Binding | | | LABORATORY | | | Capacity | | | | | + + + + + + | Iron | 12 (L)Comment: Testing | 15 - 50 % | [facility] | | | Saturation | performed at [facility], [address] | | LABORATORY | | | | [address], | | | | | | [place] [address] | | | | + + + + + + + + | Specimen | + + | Blood | + + + + + + + | Performing | Address | City/State/Zipcode | Phone Number | | Organization | | | | + + + + + | [facility] | [address] | [place] [address] | [phone] | + + + + + Folate (04/05/2019 2:18 AM PST) + + + + + + | Component | Value | Ref Range | Performed | Pathologist | | | | | At | Signature | + + + + + + | FOLATE | 16.6Comment: Testing | >5.4 ng/mL | [facility] | | | | performed at [facility], [address] | | LABORATORY | | | | [address], | | | | | | [place] [address] | | | | + + + + + + + + | Specimen | + + | Blood | + + + + + + + | Performing | Address | City/State/Zipcode | Phone Number | | Organization | | | | + + + + + | [facility] | [address] | [place] [address] | [phone] | + + + + + Ferritin (04/05/2019 2:18 AM PST) + + + + + + | Component | Value | Ref Range | Performed | Pathologist | | | | | At | Signature | + + + + + + | Ferritin | 193 (H)Comment: Testing | 6 - 170 ng/mL | [facility] | | | | performed at [facility], [address] | | LABORATORY | | | | [address], | | | | | | [place] [address] | | | | + + + + + + + + | Specimen | + + | Blood | + + + + + + + | Performing | Address | City/State/Zipcode | Phone Number | | Organization | | | | + + + + + | [facility] | [address] | [place] [address] | [phone] | + + + + + Magnesium (04/05/2019 2:18 AM PST) + + + + + + | Component | Value | Ref Range | Performed | Pathologist | | | | | At | Signature | + + + + + + | Magnesium | 1.7Comment: Testing | 1.7 - 2.4 mg/dL | [facility] | | | | performed at [facility];[address] | | LABORATORY | | | | [address];[place] | | | | | | [address] | | | | + + + + + + + + | Specimen | + + | Blood | + + + + + + + | Performing | Address | City/State/Zipcode | Phone Number | | Organization | | | | + + + + + | [facility] | [address] | [place] [address] | [phone] | + + + + + CBC no Differential (04/04/2019 11:53 PM PST) + + + + + + | Component | Value | Ref Range | Performed | Pathologist | | | | | At | Signature | + + + + + + | WBC | 13.56 (H) | 3.80 - 11.00 | [facility] | | | | | K/uL | LABORATORY | | + + + + + + | RBC | 2.63 (L) | 3.70 - 5.10 | [facility] | | | | | M/uL | LABORATORY | | + + + + + + | Hemoglobin | 8.2 (L) | 11.3 - 15.5 | [facility] | | | | | g/dL | LABORATORY | | + + + + + + | Hematocrit | 24.6 (L) | 34.0 - 46.0 % | [facility] | | | | | | LABORATORY | | + + + + + + | MCV | 93.5 | 80.0 - 100.0 fl | [facility] | | | | | | LABORATORY | | + + + + + + | MCH | 31.2 | 27.0 - 34.0 pg | [facility] | | | | | | LABORATORY | | + + + + + + | MCHC | 33.3 | 32.0 - 35.5 | [facility] | | | | | g/dL | LABORATORY | | + + + + + + | RDW-SD | 51.2 | 37 - 53 fl | [facility] | | | | | | LABORATORY | | + + + + + + | Platelet | 200 | 150 - 400 K/uL | [facility] | | | Count | | | LABORATORY | | + + + + + + | MPV | 10.8Comment: NO NORMAL | fl | [facility] | | | | RANGE ESTABLISHEDTesting | | LABORATORY | | | | performed at [facility];[address] | | | | | [address];[place] | | | | | | [address] | | | | + + + + + + + + | Specimen | + + | Blood | + + + + + + + | Performing | Address | City/State/Zipcode | Phone Number | | Organization | | | | + + + + + | [facility] | [address] | [place] [address] | [phone] | + + + + + PTT (04/04/2019 6:42 PM PST) + + + + + + | Component | Value | Ref Range | Performed | Pathologist | | | | | At | Signature | + + + + + + | PTT | 33 (H)Comment: Testing | 23 - 32 seconds | [facility] | | | | performed at [facility];[address] | | LABORATORY | | | | [address];[place] | | | | | | [address] | | | | + + + + + + + + | Specimen | + + | Blood | + + + + + + + | Performing | Address | City/State/Zipcode | Phone Number | | Organization | | | | + + + + + | [facility] | [address] | [place] [address] | [phone] | + + + + + CBC no Differential (04/04/2019 6:39 PM PST) + + + + + + | Component | Value | Ref Range | Performed | Pathologist | | | | | At | Signature | + + + + + + | WBC | 16.11 (H) | 3.80 - 11.00 | [facility] | | | | | K/uL | LABORATORY | | + + + + + + | RBC | 2.54 (L) | 3.70 - 5.10 | [facility] | | | | | M/uL | LABORATORY | | + + + + + + | Hemoglobin | 7.8 (L) | 11.3 - 15.5 | [facility] | | | | | g/dL | LABORATORY | | + + + + + + | Hematocrit | 23.9 (L) | 34.0 - 46.0 % | [facility] | | | | | | LABORATORY | | + + + + + + | MCV | 94.1 | 80.0 - 100.0 fl | [facility] | | | | | | LABORATORY | | + + + + + + | MCH | 30.7 | 27.0 - 34.0 pg | [facility] | | | | | | LABORATORY | | + + + + + + | MCHC | 32.6 | 32.0 - 35.5 | [facility] | | | | | g/dL | LABORATORY | | + + + + + + | RDW-SD | 51.8 | 37 - 53 fl | [facility] | | | | | | LABORATORY | | + + + + + + | Platelet | 214 | 150 - 400 K/uL | [facility] | | | Count | | | LABORATORY | | + + + + + + | MPV | 10.7Comment: NO NORMAL | fl | [facility] | | | | RANGE ESTABLISHEDTesting | | LABORATORY | | | | performed at [facility];[address] | | | | | | [address];[place] | | | | | | [address] | | | | + + + + + + + + | Specimen | + + | Blood | + + + + + + + | Performing | Address | City/State/Zipcode | Phone Number | | Organization | | | | + + + + + | [facility] | [address] | [place] [address] | [phone] | + + + + + CBC no Differential (04/04/2019 4:36 PM PST) + + + + + + | Component | Value | Ref Range | Performed | Pathologist | | | | | At | Signature | + + + + + + | WBC | 14.82 (H) | 3.80 - 11.00 | [facility] | | | | | K/uL | LABORATORY | | + + + + + + | RBC | 2.73 (L) | 3.70 - 5.10 | [facility] | | | | | M/uL | LABORATORY | | + + + + + + | Hemoglobin | 8.4 (L) | 11.3 - 15.5 | [facility] | | | | | g/dL | LABORATORY | | + + + + + + | Hematocrit | 25.4 (L) | 34.0 - 46.0 % | [facility] | | | | | | LABORATORY | | + + + + + + | MCV | 93.0 | 80.0 - 100.0 fl | [facility] | | | | | | LABORATORY | | + + + + + + | MCH | 30.8 | 27.0 - 34.0 pg | [facility] | | | | | | LABORATORY | | + + + + + + | MCHC | 33.1 | 32.0 - 35.5 | [facility] | | | | | g/dL | LABORATORY | | + + + + + + | RDW-SD | 51.0 | 37 - 53 fl | [facility] | | | | | | LABORATORY | | + + + + + + | Platelet | 203 | 150 - 400 K/uL | [facility] | | | Count | | | LABORATORY | | + + + + + + | MPV | 10.9Comment: NO NORMAL | fl | [facility] | | | | RANGE ESTABLISHEDTesting | | LABORATORY | | | | performed at [facility];[address] | | | | | | [address];[place], [place] | | | | | | [address] | | | | + + + + + + + + | Specimen | + + | Blood | + + + + + + + | Performing | Address | City/State/Zipcode | Phone Number | | Organization | | | | + + + + + | [facility] | [address] | [place] [address] | [phone] | + + + + + PTT (04/04/2019 12:36 PM PST) + + + + + + | Component | Value | Ref Range | Performed | Pathologist | | | | | At | Signature | + + + + + + | PTT | 54 (H)Comment: Testing | 23 - 32 seconds | [facility] | | | | performed at [facility];[address] | | LABORATORY | | | | [address];[place] | | | | | | [address] | | | | + + + + + + + + | Specimen | + + | Blood | + + + + + + + | Performing | Address | City/State/Zipcode | Phone Number | | Organization | | | | + + + + + | [facility] | [address] | [place] [address] | [phone] | + + + + + Magnesium (04/04/2019 11:52 AM PST) + + + + + + | Component | Value | Ref Range | Performed | Pathologist | | | | | At | Signature | + + + + + + | Magnesium | 1.9Comment: Testing | 1.7 - 2.4 mg/dL | [facility] | | | | performed at [facility];[employer] | | LABORATORY | | | | [facility], [place] | | | | | | [address] | | | | + + + + + + + + | Specimen | + + | | + + + + + + + | Performing | Address | City/State/Zipcode | Phone Number | | Organization | | | | + + + + + | [facility] | [address] | [place] [address] | [phone] | + + + + + Comprehensive Metabolic Panel (04/04/2019 11:52 AM PST) + + + + + + | Component | Value | Ref Range | Performed | Pathologist | | | | | At | Signature | + + + + + + | Na | 138 | 135 - 145 | [facility] | | | | | mmol/L | LABORATORY | | + + + + + + | K | 4.4 | 3.5 - 4.9 | [facility] | [...] + + + | Anion Gap | 11 | 5 - 20 mmol/L | [facility] | | | | | | LABORATORY | | + + + + + + | Glucose | 142 (H) | 65 - 99 mg/dL | [facility] | | | | | | LABORATORY | | + + + + + + | BUN | 19 | 8 - 25 mg/dL | [facility] | | | | | | LABORATORY | | + + + + + + | Creatinine | 0.63 | 0.50 - 1.00 | [facility] | | | | | mg/dL | LABORATORY | | + + + + + + | BUN/Creatin | 30 | | [facility] | | | ine Ratio | | | LABORATORY | | + + + + + + | Calcium | 8.3 (L) | 8.5 - 10.5 | [facility] | | | | | mg/dL | LABORATORY | | + + + + + + | Protein, | 5.6 (L) | 6.3 - 8.2 g/dL | [facility] | | | Total | | | LABORATORY | | + + + + + + | Albumin | 3.6 | 3.3 - 4.8 g/dL | [facility] | | | | | | LABORATORY | | + + + + + + | Globulin | 2.0 | 1.3 - 4.9 g/dL | [facility] | | | | | | LABORATORY | | + + + + + + | A/G Ratio | 1.8 | 1.0 - 2.4 | [facility] | | | | | | LABORATORY | | + + + + + + | BILIRUBIN, | 1.0 | 0.1 - 1.5 mg/dL | [facility] | | | TOTAL | | | LABORATORY | | + + + + + + | ALK PHOS | 86 | 35 - 115 U/L | [facility] | | | | | | LABORATORY | | + + + + + + | AST | 25 | 10 - 45 U/L | [facility] | | | | | | LABORATORY | | + + + + + + | ALT | 12 | 10 - 65 U/L | [facility] | | | | | | LABORATORY | | + + + + + + | Estimated | >60Comment: GFR <60: | >60 | [facility] | | | GFR | CHRONIC KIDNEY [...] | | | | | | MDRD [facility] traceable | | | | | | equation.Testing | | | | | | performed at [facility];[address] | | | | | | [facility];[place], [place] | | | | | | [address] | | | | + + + + + + + + | Specimen | + + | | + + + + + + + | Performing | Address | City/State/Zipcode | Phone Number | | Organization | | | | + + + + + | [facility] | [address] [facility] | [place] [address] | [phone] | + + + + + CBC no Differential (04/04/2019 11:52 AM PST) + + + + + + | Component | Value | Ref Range | Performed | Pathologist | | | | | At | Signature | + + + + + + | WBC | 16.08 (H) | 3.80 - 11.00 | [facility] | | | | | K/uL | LABORATORY | | + + + + + + | RBC | 2.89 (L) | 3.70 - 5.10 | [facility] | | | | | M/uL | LABORATORY | | + + + + + + | Hemoglobin | 8.9 (L) | 11.3 - 15.5 | [facility] | | | | | g/dL | LABORATORY | | + + + + + + | Hematocrit | 26.9 (L) | 34.0 - 46.0 % | [facility] | | | | | | LABORATORY | | + + + + + + | MCV | 93.1 | 80.0 - 100.0 fl | [facility] | | | | | | LABORATORY | | + + + + + + | MCH | 30.8 | 27.0 - 34.0 pg | [facility] | | | | | | LABORATORY | | + + + + + + | MCHC | 33.1 | 32.0 - 35.5 | [facility] | | | | | g/dL | LABORATORY | | + + + + + + | RDW-SD | 51.7 | 37 - 53 fl | [facility] | | | | | | LABORATORY | | + + + + + + | Platelet | 204 | 150 - 400 K/uL | [facility] | | | Count | | | LABORATORY | | + + + + + + | MPV | 11.1Comment: NO NORMAL | fl | [facility] | | | | RANGE ESTABLISHEDTesting | | LABORATORY | | | | performed at [facility];[address] | | | | | | [address];[place] | | | | | | [address] | | | | + + + + + + + + | Specimen | + + | Blood | + + + + + + + | Performing | Address | City/State/Zipcode | Phone Number | | Organization | | | | + + + + + | [facility] | [address] | [place] [address] | [phone] | + + + + + Red Blood Cells (PRBC) - Crossmatch (04/04/2019 9:05 AM PST) + + + + + + | Component | Value | Ref Range | Performed | Pathologist | | | | | At | Signature | + + + + + + | Product | RED CELL GROUP | | [facility] | | | Code | | | LABORATORY | | + + + + + + | Units | 2 | | [facility] | | | ordered | | | LABORATORY | | + + + + + + | BLOOD BANK | ORDER RECEIVED IN BLOOD | | [facility] | | | COMMENT | BANK. | | LABORATORY | | + + + + + + | BLOOD BANK | Testing performed at | | [facility] | | | COMMENT | [facility];[address] [facility] | | LABORATORY | | | | [address]vd;[place] [address] | | | | + + + + + + + + | Specimen | + + | | + + + + + + + | Performing | Address | City/State/Zipcode | Phone Number | | Organization | | | | + + + + + | [facility] | [address] | [place] [address] | [phone] | + + + + + CBC no Differential (04/04/2019 6:18 AM PST) + + + + + + | Component | Value | Ref Range | Performed | Pathologist | | | | | At | Signature | + + + + + + | WBC | 11.23 (H) | 3.80 - 11.00 | [facility] | | | | | K/uL | LABORATORY | | + + + + + + | RBC | 2.82 (L) | 3.70 - 5.10 | [facility] | | | | | M/uL | LABORATORY | | + + + + + + | Hemoglobin | 8.7 (L) | 11.3 - 15.5 | [facility] | | | | | g/dL | LABORATORY | | + + + + + + | Hematocrit | 25.9 (L) | 34.0 - 46.0 % | [facility] | | | | | | LABORATORY | | + + + + + + | MCV | 91.8 | 80.0 - 100.0 fl | [facility] | | | | | | LABORATORY | | + + + + + + | MCH | 30.9 | 27.0 - 34.0 pg | [facility] | | | | | | LABORATORY | | + + + + + + | MCHC | 33.6 | 32.0 - 35.5 | [facility] | | | | | g/dL | LABORATORY | | + + + + + + | RDW-SD | 48.7 | 37 - 53 fl | [facility] | | | | | | LABORATORY | | + + + + + + | Platelet | 177 | 150 - 400 K/uL | [facility] | | | Count | | | LABORATORY | | + + + + + + | MPV | 11.0Comment: NO NORMAL | fl | [facility] | | | | RANGE ESTABLISHEDTesting | | LABORATORY | | | | performed at [facility];[address] | | | | | | [address];[place] | | | | | | [address] | | | | + + + + + + + + | Specimen | + + | Blood | + + + + + + + | Performing | Address | City/State/Zipcode | Phone Number | | Organization | | | | + + + + + | [facility] | [address] | [place] [address] | [phone] | + + + + + Protime INR (04/04/2019 6:18 AM PST) + + + + + + | Component | Value | Ref Range | Performed | Pathologist | | | | | At | Signature | + + + + + + | INR | 1.7Comment: REFERENCE | | [facility] | | | | RANGE:0.9 - 1.2 [...] | | | | | performed at [facility];[employer] | | | | | | [address];[place], [place] | | | | | | [address] | | | | + + + + + + + + | Specimen | + + | Blood | + + + + + + + | Performing | Address | City/State/Zipcode | Phone Number | | Organization | | | | + + + + + | [facility] | [address] | [place] [address] | [phone] | + + + + + Iron, Total (04/03/2019 10:45 PM PST) + + + + + + | Component | Value | Ref Range | Performed | Pathologist | | | | | At | Signature | + + + + + + | Iron | 47Comment: Testing | 30 - 180 ug/dL | [facility] | | | | performed at [facility], [address] | | LABORATORY | | | | [address], | | | | | | [place] [address] | | | | + + + + + + + + | Specimen | + + | Blood | + + + + + + + | Performing | Address | City/State/Zipcode | Phone Number | | Organization | | | | + + + + + | [facility] | [address] | [place] [address] | [phone] | + + + + + CBC no Differential (04/03/2019 10:45 PM PST) + + + + + + | Component | Value | Ref Range | Performed | Pathologist | | | | | At | Signature | + + + + + + | WBC | 18.58 (H) | 3.80 - 11.00 | [facility] | | | | | K/uL | LABORATORY | | + + + + + + | RBC | 2.64 (L) | 3.70 - 5.10 | [facility] | | | | | M/uL | LABORATORY | | + + + + + + | Hemoglobin | 8.3 (L) | 11.3 - 15.5 | [facility] | | | | | g/dL | LABORATORY | | + + + + + + | Hematocrit | 24.6 (L) | 34.0 - 46.0 % | [facility] | | | | | | LABORATORY | | + + + + + + | MCV | 93.2 | 80.0 - 100.0 fl | [facility] | | | | | | LABORATORY | | + + + + + + | MCH | 31.4 | 27.0 - 34.0 pg | [facility] | | | | | | LABORATORY | | + + + + + + | MCHC | 33.7 | 32.0 - 35.5 | [facility] | | | | | g/dL | LABORATORY | | + + + + + + | RDW-SD | 46.5 | 37 - 53 fl | [facility] | | | | | | LABORATORY | | + + + + + + | Platelet | 206 | 150 - 400 K/uL | [facility] | | | Count | | | LABORATORY | | + + + + + + | MPV | 11.2Comment: NO NORMAL | fl | [facility] | | | | RANGE ESTABLISHEDTesting | | LABORATORY | | | | performed at [facility];[address] | [address];[place] | | | | | | [address] | | | | + + + + + + + + | Specimen | + + | Blood | + + + + + + + | Performing | Address | City/State/Zipcode | Phone Number | | Organization | | | | + + + + + | [facility] | [address] | [place] [address] | [phone] | + + + + + Troponin I (04/03/2019 7:45 PM PST) + + + + + + | Component | Value | Ref Range | Performed | Pathologist | | | | | At | Signature | + + + + + + | Troponin I | 1.186 ()Comment: | 0.00 - 0.04 | [facility] | | | | 0.04 ng/mL or less | ng/mL | LABORATORY | | | | Negative, repeat | | | | | | testing in four to six | | | | | | hour ifclinically | | | | | | indicted0.05 to 0.77 | | | | | | ng/mL | | | | | | Suspicious for | | | | | | myocardial injury. | | | | | | Serial measurementsmay | | | | | | be necessary to confirm | | | | | | or exclude the diagnosis | | | | | | of acute | | | | | | coronarysyndrome. Repeat | | | | | | testing in four to six | | | | | | hours if indicated.0.78 | | | | | | or greater ng/mL | | | | | | Consistent with | | | | | | myocardial injury. | | | | | | Clinical andlaboratory | | | | | | correlation recommended. | | | | | | CALLED NURSING UNITREAD | | | | | | BACK RESULTS | | | | | | VERIFIEDCALLED TO RN IN | | | | | | ED AT 2026 BY LGJTesting | | | | | | performed at [facility];[address] | | | | | | [address];[place] | | | | | | [address] | | | | + + + + + + + + | Specimen | + + | | + + + + + + + | Performing | Address | City/State/Zipcode | Phone Number | | Organization | | | | + + + + + | [facility] | [address] | [place] [address] | [phone] | + + + + + CBC no Differential (04/03/2019 7:45 PM PST) + + + + + + | Component | Value | Ref Range | Performed | Pathologist | | | | | At | Signature | + + + + + + | WBC | 11.91 (H) | 3.80 - 11.00 | [facility] | | | | | K/uL | LABORATORY | | + + + + + + | RBC | 2.68 (L) | 3.70 - 5.10 | [facility] | | | | | M/uL | LABORATORY | | + + + + + + | Hemoglobin | 8.2 (L) | 11.3 - 15.5 | [facility] | | | | | g/dL | LABORATORY | | + + + + + + | Hematocrit | 25.2 (L) | 34.0 - 46.0 % | [facility] | | | | | | LABORATORY | | + + + + + + | MCV | 94.0 | 80.0 - 100.0 fl | [facility] | | | | | | LABORATORY | | + + + + + + | MCH | 30.6 | 27.0 - 34.0 pg | [facility] | | | | | | LABORATORY | | + + + + + + | MCHC | 32.5 | 32.0 - 35.5 | [facility] | | | | | g/dL | LABORATORY | | + + + + + + | RDW-SD | 46.7 | 37 - 53 fl | [facility] | | | | | | LABORATORY | | + + + + + + | Platelet | 239 | 150 - 400 K/uL | [facility] | | | Count | | | LABORATORY | | + + + + + + | MPV | 11.2Comment: NO NORMAL | fl | [facility] | | | | RANGE ESTABLISHEDTesting | | LABORATORY | | | | performed at [facility];[address] | | | | | | [address];[place] | | | | | | [address] | | | | + + + + + + + + | Specimen | + + | Blood | + + + + + + + | Performing | Address | City/State/Zipcode | Phone Number | | Organization | | | | + + + + + | [facility] | [address] | [place] [address] | [phone] | + + + + + ECG 12 lead (04/03/2019 7:38 PM PST) + + + + + + | Component | Value | Ref Range | Performed | Pathologist | | | | | At | Signature | + + + + + + | VENTRICULAR | 75 | BPM | [facility] | | | RATE EKG | | | | | + + + + + + | ATRIAL RATE | 75 | BPM | [facility] | | + + + + + + | P-R | 214 | ms | [facility] | | | INTERVAL | | | | | + + + + + + | QRS | 102 | ms | [facility] | | | DURATION | | | | | + + + + + + | Q-T | 424 | ms | [facility] | | | INTERVAL | | | | | + + + + + + | Q-T | 473 | ms | [facility] | | | INTERVAL | | | | | | (CORRECTED) | | | | | + + + + + + | P WAVE AXIS | 1 | degrees | [facility] | | + + + + + + | QRS AXIS | 8 | degrees | [facility] | | + + + + + + | T AXIS | 27 | degrees | [facility] | | + + + + + + | INTERPRETAT | Sinus rhythm with 1st | | [facility] | | | ION TEXT | degree A-V | | | | | | blockOtherwise normal | | | | | | ECGWhen compared with | | | | | | ECG of 31-MAR-2019 | | | | | | 12:43,No significant | | | | | | change was foundThis ECG | | | | | | contains Unconfirmed | | | | | | Interpretation | | | | | | Statements. See ED | | | | | | Record for Physician | | | | | | Interpretation. | | | | | | Confirmed by [facility] READ | | | | | | ONLY, -COMPUTER ([id number]), | | | | | | sound editor Jocelynn Fry | | | | | | ([id number]) on 04/06/2019 | | | | | | 4:58:11 AM | | | | + + [...] | | | + +---------+ + + Red Blood Cells (PRBC) - Crossmatch (04/03/2019 7:34 PM PST) + + + + + + | Component | Value | Ref Range | Performed | Pathologist | | | | | At | Signature | + + + + + + | Product | RED CELL GROUP | | [facility] | | | Code | | | LABORATORY | | + + + + + + | Units | 2 | | [facility] | | | ordered | | | LABORATORY | | + + + + + + | BLOOD BANK | ORDER RECEIVED IN BLOOD | | | | | COMMENT | BANK. | | | | + + + + + + | BLOOD BANK | Testing performed at | | | | | COMMENT | [facility] [place] [address] | | | | | | Blvd;[place] [address] | | | | + + + + + + + + | Specimen | + + | | + + + + + + + | Performing | Address | City/State/Zipcode | Phone Number | | Organization | | | | + + + + + | [facility] | [address] | [place] [address] | [phone] | + + + + + PRODUCT: Plasma (04/03/2019 7:13 PM PST) + + + + + + | Component | Value | Ref Range | Performed | Pathologist | | | | | At | Signature | + + + + + + | BLOOD BANK | ORDER RECEIVED IN BLOOD | | [facility] | | | COMMENT | BANK. | | LABORATORY | | + + + + + + | UNIT # | [id number] | | [facility] | | | | | | LABORATORY | | + + + + + + | Product | PLASMA,THAWED 5 DAY | | [facility] | | | Code | | | LABORATORY | | + + + + + + | Unit | 00 | | [facility] | | | Division | | | LABORATORY | | + + + + + + | Unit Status | ISSUED,FINAL | | [facility] | | | | | | LABORATORY | | + + + + + + | Transfusion | OK TO TRANSFUSE | | [facility] | | | Status | | | LABORATORY | | + + + + + + | UNIT # | [id number] | | [facility] | | | | | | LABORATORY | | + + + + + + | Product | PLASMA,THAWED 5 DAY | | [facility] | | | Code | | | LABORATORY | | + + + + + + | Unit | 00 | | [facility] | | | Division | | | LABORATORY | | + + + + + + | Unit Status | ISSUED,FINAL | | [facility] | | | | | | LABORATORY | | + + + + + + | Transfusion | OK TO TRANSFUSETesting | | [facility] | | | Status | performed at [facility];[address] | LABORATORY | | | | [address];[place], [place] | | | | | | [id number] | | | | + + + + + + + + | Specimen | + + | | + + + + + + + | Performing | Address | City/State/Zipcode | Phone Number | | Organization | | | | + + + + + | [facility] | [address] | [place] [address] | [phone] | + + + + + CBC with Differential (04/03/2019 7:02 PM PST) + + + + + + | Component | Value | Ref Range | Performed | Pathologist | | | | | At | Signature | + + + + + + | WBC | 12.16 (H) | 3.80 - 11.00 | [facility] | | | | | K/uL | LABORATORY | | + + + + + + | RBC | 2.69 (L) | 3.70 - 5.10 | [facility] | | | | | M/uL | LABORATORY | | + + + + + + | Hemoglobin | 8.3 (L) | 11.3 - 15.5 | [facility] | | | | | g/dL | LABORATORY | | + + + + + + | Hematocrit | 25.4 (L) | 34.0 - 46.0 % | [facility] | | | | | | LABORATORY | | + + + + + + | MCV | 94.4 | 80.0 - 100.0 fl | [facility] | | | | | | LABORATORY | | + + + + + + | MCH | 30.9 | 27.0 - 34.0 pg | [facility] | | | | | | LABORATORY | | + + + + + + | MCHC | 32.7 | 32.0 - 35.5 | [facility] | | | | | g/dL | LABORATORY | | + + + + + + | RDW-SD | 46.8 | 37 - 53 fl | [facility] | | | | | | LABORATORY | | + + + + + + | Platelet | 232 | 150 - 400 K/uL | [facility] | | | Count | | | LABORATORY | | + + + + + + | MPV | 11.0Comment: NO NORMAL | fl | [facility] | [...] + + + + | % | 80.50 | % | [facility] | | | Neutrophils | | | LABORATORY | | + + + + + + | IMMATURE | 0.60 | % | [facility] | | | GRANULOCYTE | | | LABORATORY | | + + + + + + | % | 8.20 | % | [facility] | | | Lymphocytes | | | LABORATORY | | + + + + + + | Monocyte % | 10.40 | % | [facility] | | | | | | LABORATORY | | + + + + + + | Eosinophils | 0.10 | % | [facility] | | | % | | | LABORATORY | | + + + + + + | Basophils % | 0.20 | % | [facility] | | | | | | LABORATORY | | + + + + + + | Neutrophils | 9.78 (H) | 1.90 - 7.40 | [facility] | | | , Absolute | | K/uL | LABORATORY | | + + + + + + | IMMATURE | 0.07Comment: NOTE NEW | 0.00 - 0.07 | [facility] | | | GRANS AB | REFERENCE RANGE | K/uL | LABORATORY | | + + + + + + | Absolute | 1.00 | 1.00 - 3.90 | [facility] | | | Lymphocytes | | K/uL | LABORATORY | | + + + + + + | Absolute | 1.27 (H) | 0.00 - 0.80 | [facility] | | | Monocytes | | K/uL | LABORATORY | | + + + + + + | Eosinophils | 0.01 | 0.00 - 0.50 | [facility] | | | , Absolute | | K/uL | LABORATORY | | + + + + + + | Basophils, | 0.03Comment: Testing | 0.00 - 0.10 | [facility] | | | Absolute | performed at [facility] | K[address] | LABORATORY | | | | [address];[place], [place] | | | | | | [address] | | | | + + + + + + + + | Specimen | + + | Blood | + + + + + + + | Performing | Address | City/State/Zipcode | Phone Number | | Organization | | | | + + + + + | [facility] | [address] | [place] [address] | [phone] | + + + + + Type and Screen (04/03/2019 7:01 PM PST) + + + + + + | Component | Value | Ref Range | Performed | Pathologist | | | | | At | Signature | + + + + + + | ABO Rh | O POSITIVE | | [facility] | | | | | | LABORATORY | | + + + + + + | Antibody | NEGATIVE | | [facility] | | | Screen | | | LABORATORY | | + + + + + + | BB BAND | [id number] | | [facility] | | | | | | LABORATORY | | + + + + + + | UNIT # | [id number] | | [facility] | | | | | | LABORATORY | | + + + + + + | Product | LEUKODEPLETED PC | | [facility] | | | Code | | | LABORATORY | | + + + + + + | Unit | 00 | | [facility] | | | Division | | | LABORATORY | | + + + + + + | Unit Status | ISSUED,FINAL | | [facility] | | | | | | LABORATORY | | + + + + + + | Transfusion | OK TO TRANSFUSE | | [facility] | | | Status | | | LABORATORY | | + + + + + + | CROSSMATCH | COMPATIBLE | | [facility] | | | RESULT | | | LABORATORY | | + + + + + + | UNIT # | [id number] | | [facility] | | | | | | LABORATORY | | + + + + + + | Product | LEUKODEPLETED PC | | [facility] | | | Code | | | LABORATORY | | + + + + + + | Unit | 00 | | [facility] | | | Division | | | LABORATORY | | + + + + + + | Unit Status | ISSUED,FINAL | | [facility] | | | | | | LABORATORY | | + + + + + + | Transfusion | OK TO TRANSFUSE | | [facility] | | | Status | | | LABORATORY | | + + + + + + | CROSSMATCH | COMPATIBLE | | [facility] | | | RESULT | | | LABORATORY | | + + + + + + | UNIT # | [id number] | | [facility] | | | | | | LABORATORY | | + + + + + + | Product | LEUKODEPLETED PC | | [facility] | | | Code | | | LABORATORY | | + + + + + + | Unit | 00 | | [facility] | | | Division | | | LABORATORY | | + + + + + + | Unit Status | REL FROM ALLOC | | [facility] | | | | | | LABORATORY | | + + + + + + | Transfusion | OK TO TRANSFUSE | | [facility] | | | Status | | | LABORATORY | | + + + + + + | CROSSMATCH | COMPATIBLETesting | | [facility] | | | RESULT | performed at [facility];[address] | | LABORATORY | | | | [address];[place] | | | | | | [address] | | | | + + + + + + | UNIT # | [id number] | | [facility] | | | | | | LABORATORY | | + + + + + + | Product | LEUKODEPLETED PC | | [facility] | | | Code | | | LABORATORY | | + + + + + + | Unit | 00 | | [facility] | | | Division | | | LABORATORY | | + + + + + + | Unit Status | REL FROM ALLOC | | [facility] | | | | | | LABORATORY | | + + + + + + | Transfusion | OK TO TRANSFUSE | | [facility] | | | Status | | | LABORATORY | | + + + + + + | CROSSMATCH | COMPATIBLE | | [facility] | | | RESULT | | | LABORATORY | | + + + + + + + + | Specimen | + + | Blood | + + + + + + + | Performing | Address | City/State/Zipcode | Phone Number | | Organization | | | | + + + + + | [facility] | [address] | [place] [address] | [phone] | + + + + + POC Glucose (04/03/2019 6:57 PM PST) + + + + + + | Component | Value | Ref Range | Performed | Pathologist | | | | | At | Signature | + + + + + + | Glucose, | 147 (H)Comment: Testing | 65 - 99 mg/dL | [facility] | | | POC | performed at [facility];[address] | | LABORATORY | | | | [address];[place], [place] | | | | | | [address] | | | | + + + + + + + + | Specimen | + + | | + + + + + + + | Performing | Address | City/State/Zipcode | Phone Number | | Organization | | | | + + + + + | [facility] | [address] | [place] [address] | [phone] | + + + + + CT Angiogram Lower Extremity Left w Con (04/03/2019 1:14 PM PST) + + | Specimen | + + | | + + + + + | Impressions | Performed At | + + + | Active extravasation in the proximal left thigh with appears to | [facility] | | originate from the left femoris profunda artery. However, associated | | | venous injury not be excluded. There is a large associated | | | anterior left thigh hematoma with diffuse soft tissue swelling | | | throughout the entire left lower extremity. Signed by: | | | Na Hargrove, Hemant Sign Date/Time: 04/03/2019 2:26 PM | | + + + + + + | Narrative | Performed At | + + + | CT ANGIOGRAM ABDOMEN PELVIS AND BILATERAL LOWER EXTREMITY RUNOFF | [facility] | | CLINICAL INFORMATION: Dr. Mullen for vascular surgery requesting | | | CT angiogram of the left groin specifically. COMPARISON: VAS | | | LOWER EXTREMITY ARTERIES LEFT (04/03/2019); LOWER EXTREMITY ANY JOINT | | | (03/04/2009); PROCEDURE: Thin section axial images through the | | | abdomen, pelvis and lower extremities after the administration of | | | 100ml omnipaque 350 intravenous contrast. 3D and multiplanar | | | reconstructions were performed. At least one of the following CT | | | dose optimization techniques were used: Automated exposure control; | | | Adjustment of mA and/or kV according to patient size; Use of | | | iterative reconstruction technique. FINDINGS: VASCULAR FINDINGS: | | | (For each vessel, the presence or absence of atherosclerosis, and the | | | presence or absence of single or multiple stenoses greater than | | | 50%.) Abdominal Aorta: Atherosclerosis without stenosis greater | | | than 50%. Right Common Iliac Artery: Atherosclerosis without | | | stenosis greater than 50%. Right External Iliac Artery: | | | Atherosclerosis without stenosis greater than 50%. Right Common | | | Femoral Artery: Atherosclerosis without stenosis greater than 50%. | | | Right Superficial Femoral Artery: Atherosclerosis without stenosis | | | greater than 50%. Right Popliteal Artery: Atherosclerosis without | | | stenosis greater than 50%. Right Calf: There is enhancement of | | | the anterior tibial, posterior tibial and peroneal arteries. Left | | | Common Iliac Artery: Atherosclerosis without stenosis greater than | | | 50%. Left External Iliac Artery: Atherosclerosis without stenosis | | | greater than 50%. Left Common Femoral Artery: Atherosclerosis | | | without stenosis greater than 50%. Left Superficial Femoral | | | Artery: Atherosclerosis without stenosis greater than 50%. Left | | | femoris profundus artery: There is active extravasation arising from | | | the proximal femoris profundus artery (series 6, image 90) Left | | | Popliteal Artery: Atherosclerosis without stenosis greater than 50%. | | | Left Calf: There is enhancement of the anterior tibial, posterior | | | tibial and peroneal arteries. EXTREMITIES Right Lower Extremity | | | Findings: There are no significant non-vascular findings. Left | | | Lower Extremity Findings: There is a large intramuscular hematoma | | | involving the left anterior thigh centered in the rectus femoris | | | muscle. There is extensive left thigh soft tissue swelling and fat | | | stranding. ABDOMEN Kidneys: Visualized portion of the kidneys | | | is normal. ABDOMEN AND PELVIS Bowel: Visualized portion of small | | | bowel and colon is normal. Veins: No evidence of venous injury or | | | deep venous thrombosis. Lymph Nodes: No lymphadenopathy. Peritoneum | | | and Retroperitoneum: No free intraperitoneal gas or fluid. PELVIS | | | Genitourinary: Visualized bladder is normal appearing. Multiple | | | calcifications are noted in the pelvis. Bones: No lytic or | | | blastic osseous lesions. No acute fracture. Postoperative changes | | | of left total knee arthroplasty and L3 through L5 instrumented | | | posterior fusion decompression are noted. | | + + + + + | Procedure Note | + + | Bhavin, Rad Results In 04/03/2019 2:29 PM PST | | CT ANGIOGRAM ABDOMEN PELVIS AND BILATERAL LOWER EXTREMITY RUNOFF | | | | CLINICAL INFORMATION: | | Dr. Mullen for vascular surgery requesting CT angiogram of the left | | groin specifically. | | | | COMPARISON: | | VAS LOWER EXTREMITY ARTERIES LEFT (04/03/2019); LOWER EXTREMITY ANY | | JOINT (03/04/2009); | | | | PROCEDURE: | | Thin section axial images through the abdomen, pelvis and lower | | extremities after the administration of 100ml omnipaque 350 intravenous | | contrast. 3D and multiplanar reconstructions were performed. | | | | At least one of the following CT dose optimization techniques were | | used: Automated exposure control; Adjustment of mA and/or kV according | | to patient size; Use of iterative reconstruction technique. | | | | FINDINGS: | | VASCULAR FINDINGS: (For each vessel, the presence or absence of | | atherosclerosis, and the presence or absence of single or multiple | | stenoses greater than 50%.) | | | | Abdominal Aorta: Atherosclerosis without stenosis greater than 50%. | | | | Right Common Iliac Artery: Atherosclerosis without stenosis greater | | than 50%. | | | | Right External Iliac Artery: Atherosclerosis without stenosis greater | | than 50%. | | | | Right Common Femoral Artery: Atherosclerosis without stenosis greater | | than 50%. | | | | Right Superficial Femoral Artery: Atherosclerosis without stenosis | | greater than 50%. | | | | Right Popliteal Artery: Atherosclerosis without stenosis greater than | | 50%. | | | | Right Calf: There is enhancement of the anterior tibial, posterior | | tibial and peroneal arteries. | | | | Left Common Iliac Artery: Atherosclerosis without stenosis greater than | | 50%. | | | | Left External Iliac Artery: Atherosclerosis without stenosis greater | | than 50%. | | | | Left Common Femoral Artery: Atherosclerosis without stenosis greater | | than 50%. | | | | Left Superficial Femoral Artery: Atherosclerosis without stenosis | | greater than 50%. | | | | Left femoris profundus artery: There is active extravasation arising | | from the proximal femoris profundus artery (series 6, image 90) | | | | Left Popliteal Artery: Atherosclerosis without stenosis greater than | | 50%. | | | | Left Calf: There is enhancement of the anterior tibial, posterior | | tibial and peroneal arteries. | | | | EXTREMITIES | | Right Lower Extremity Findings: There are no significant non-vascular | | findings. | | | | Left Lower Extremity Findings: There is a large intramuscular hematoma | | involving the left anterior thigh centered in the rectus femoris | | muscle. There is extensive left thigh soft tissue swelling and fat | | stranding. | | | | ABDOMEN | | | | Kidneys: Visualized portion of the kidneys is normal. | | | | ABDOMEN AND PELVIS | | Bowel: Visualized portion of small bowel and colon is normal. | | Veins: No evidence of venous injury or deep venous thrombosis. | | Lymph Nodes: No lymphadenopathy. | | Peritoneum and Retroperitoneum: No free intraperitoneal gas or fluid. | | | | PELVIS | | Genitourinary: Visualized bladder is normal appearing. Multiple | | calcifications are noted in the pelvis. | | | | | | Bones: No lytic or blastic osseous lesions. No acute fracture. | | Postoperative changes of left total knee arthroplasty and L3 through L5 | | instrumented posterior fusion decompression are noted. | | | | IMPRESSION: | | Active extravasation in the proximal left thigh with appears to | | originate from the left femoris profunda artery. However, associated | | venous injury not be excluded. There is a large associated anterior | | left thigh hematoma with diffuse soft tissue swelling throughout the | | entire left lower extremity. | | | | | | | | Signed by: Na Hargrove Matthew | | Sign Date/Time: 04/03/2019 2:26 PM | + + + +---------+ + + | Performing | Address | City/State/Zipcode | Phone Number | | Organization | | | | + +---------+ + + | [facility] | | | | + +---------+ + + Vitamin B-12 and Folate (04/03/2019 10:25 AM PST) + + + + + + | Component | Value | Ref Range | Performed | Pathologist | | | | | At | Signature | + + + + + + | VITAMIN | 1,144 | 254 - 1,320 | [facility] | | | B-12 | | pg/mL | LABORATORY | | + + + + + + | FOLATE | 18.3Comment: Testing | >5.4 ng/mL | [facility] | | | | performed at [facility], [address] | | LABORATORY | | | | [address], | | | | | | [place] [address] | | | | + + + + + + + + | Specimen | + + | Blood | + + + + + + + | Performing | Address | City/State/Zipcode | Phone Number | | Organization | | | | + + + + + | [facility] | [address] | [place] [address] | [phone] | + + + + + Ferritin (04/03/2019 10:25 AM PST) + + + + + + | Component | Value | Ref Range | Performed | Pathologist | | | | | At | Signature | + + + + + + | Ferritin | 144Comment: Testing | 6 - 170 ng/mL | [facility] | | | | performed at [facility], [address] | | LABORATORY | | | | [address], | | | | | | [place] [address] | | | | + + + + + + + + | Specimen | + + | Blood | + + + + + + + | Performing | Address | City/State/Zipcode | Phone Number | | Organization | | | | + + + + + | [facility] | [address] | [place] [address] | [phone] | + + + + + Protime INR (04/03/2019 10:25 AM PST) + + + + + + | Component | Value | Ref Range | Performed | Pathologist | | | | | At | Signature | + + + + + + | INR | 2.9Comment: REFERENCE | | [facility] | | | | RANGE:0.9 - 1.2 [...] | | | | | performed at [facility];[address] | | | | | | [address] [facility];[place] | | | | | | [address] | | | | + + + + + + + + | Specimen | + + | | + + + + + + + | Performing | Address | City/State/Zipcode | Phone Number | | Organization | | | | + + + + + | [facility] | [address] [facility] [facility] | [place] [address] | [phone] | + + + + + Basic Metabolic Panel (04/03/2019 10:25 AM PST) + + + + + + | Component | Value | Ref Range | Performed | Pathologist | | | | | At | Signature | + + + + + + | Na | 136 | 135 - 145 | [facility] | | | | | mmol/L | LABORATORY | | + + + + + + | K | 4.0 | 3.5 - 4.9 | [facility] | | | | | mmol/L | LABORATORY | | + + + + + + | Cl | 103 | 99 - 109 mmol/L | [facility] | | | | | | LABORATORY | | + + + + + + | CO2 | 27 | 23 - 32 mmol/L | [facility] | | | | | | LABORATORY | | + + + + + + | Anion Gap | 10 | 5 - 20 mmol/L | [facility] | | | | | | LABORATORY | | + + + + + + | Glucose | 140 (H) | 65 - 99 mg/dL | [facility] | | | | | | LABORATORY | | + + + + + + | BUN | 20 | 8 - 25 mg/dL | [facility] | | | | | | LABORATORY | | + + + + + + | Creatinine | 0.80 | 0.50 - 1.00 | [facility] | | | | | mg/dL | LABORATORY | | + + + + + + | BUN/Creatin | 25 | | [facility] | | | ine Ratio | | | LABORATORY | | + + + + + + | Calcium | 8.9 | 8.5 - 10.5 | [facility] | | | | | mg/dL | LABORATORY | | + + + + + + | Estimated | >60Comment: GFR <60: | >60 | [facility] | | | GFR | CHRONIC KIDNEY [...] | | | | | | MDRD IDMS traceable | | | | | | equation.Testing | | | | | | performed at [facility];[address] | | | | | | [address];[place], [place] | | | | | | [address] | | | | + + + + + + + + | Specimen | + + | Blood | + + + + + + + | Performing | Address | City/State/Zipcode | Phone Number | | Organization | | | | + + + + + | [facility] | [address] | [place] [address] | [phone] | + + + + + CBC with Differential (04/03/2019 10:25 AM PST) + + + + + + | Component | Value | Ref Range | Performed | Pathologist | | | | | At | Signature | + + + + + + | WBC | 12.36 (H) | 3.80 - 11.00 | [facility] | | | | | K/uL | LABORATORY | | + + + + + + | RBC | 2.91 (L) | 3.70 - 5.10 | [facility] | | | | | M/uL | LABORATORY | | + + + + + + | Hemoglobin | 9.0 (L) | 11.3 - 15.5 | [facility] | | | | | g/dL | LABORATORY | | + + + + + + | Hematocrit | 27.1 (L) | 34.0 - 46.0 % | [facility] | | | | | | LABORATORY | | + + + + + + | MCV | 93.1 | 80.0 - 100.0 fl | [facility] | | | | | | LABORATORY | | + + + + + + | MCH | 30.9 | 27.0 - 34.0 pg | [facility] | | | | | | LABORATORY | | + + + + + + | MCHC | 33.2 | 32.0 - 35.5 | [facility] | | | | | g/dL | LABORATORY | | + + + + + + | RDW-SD | 46.2 | 37 - 53 fl | [facility] | | | | | | LABORATORY | | + + + + + + | Platelet | 213 | 150 - 400 K/uL | [facility] | | | Count | | | LABORATORY | | + + + + + + | MPV | 10.9Comment: NO NORMAL | fl | [facility] | [...] + + + + | % | 81.90 | % | [facility] | | | Neutrophils | | | LABORATORY | | + + + + + + | IMMATURE | 0.80 | % | [facility] | | | GRANULOCYTE | | | LABORATORY | | + + + + + + | % | 7.10 | % | [facility] | | | Lymphocytes | | | LABORATORY | | + + + + + + | Monocyte % | 9.90 | % | [facility] | | | | | | LABORATORY | | + + + + + + | Eosinophils | 0.10 | % | [facility] | | | % | | | LABORATORY | | + + + + + + | Basophils % | 0.20 | % | [facility] | | | | | | LABORATORY | | + + + + + + | Neutrophils | 10.12 (H) | 1.90 - 7.40 | [facility] | | | , Absolute | | K/uL | LABORATORY | | + + + + + + | IMMATURE | 0.10 (H)Comment: NOTE | 0.00 - 0.07 | [facility] | | | GRANS AB | NEW REFERENCE RANGE | K/uL | LABORATORY | | + + + + + + | Absolute | 0.88 (L) | 1.00 - 3.90 | [facility] | | | Lymphocytes | | K/uL | LABORATORY | | + + + + + + | Absolute | 1.22 (H) | 0.00 - 0.80 | [facility] | | | Monocytes | | K/uL | LABORATORY | | + + + + + + | Eosinophils | 0.01 | 0.00 - 0.50 | [facility] | | | , Absolute | | K/uL | LABORATORY | | + + + + + + | Basophils, | 0.03Comment: Testing | 0.00 - 0.10 | [facility] | | | Absolute | performed at [facility];[address] | [address] | LABORATORY | | | | [address];[place] | | | | | | [address] | | | | + + + + + + + + | Specimen | + + | Blood | + + + + + + + | Performing | Address | City/State/Zipcode | Phone Number | | Organization | | | | + + + + + | [facility] | [address] | [place] [address] | [phone] | + + + + + documented in this encounter Visit Diagnoses + + | Diagnosis | + + | Persistent atrial fibrillation (HCC) Atrial fibrillation | + + documented in this encounter Admitting Diagnoses + + | Diagnosis | + + | Bleeding Hemorrhage, unspecified | + + | Pseudoaneurysm (HCC) Aneurysm of unspecified site | + + | Decreased hemoglobin Anemia, unspecified | + + | Chronic atrial fibrillation (HCC) Atrial fibrillation | + + | Essential hypertension Unspecified essential hypertension | + + documented in this encounter Administered Medications + +--------+---------+------+------+------+ | Medication Order | MAR | Action | Dose | Rate | Site | | | Action | Date | | | | + +--------+---------+------+------+------+ + +---+ | albuterol 2.5 mg/3 mL nebulizer | | | solution 2.5 mg 2.5 mg, | | | Nebulization, ONCE PRN, Wheezing, | | | Starting 04/04/19 at 1031, | | | For 1 dose, Notify anesthesia if | | | patient is wheezing and does not | | | have a history of asthma or COPD | | | or current smoking., | | + +---+ | | | + +---+ + +-------+ +--------+---+---+ | amiodarone (PACERONE) tablet | Given | 04/10/19 | 200 mg | | | | 200 mg 200 mg, Oral, DAILY, | | 20 8:01 | | | | | First dose (after last | | AM PST | | | | | modification) on Sat04/10/19 at | | | | | | | 0900 | | | | | | + +-------+ +--------+---+---+ +---+---+ | | | +---+---+ + +-------+ +-------+---+---+ | atenolol (TENORMIN) tablet 50 | Given | 04/10/19 | 50 mg | | | | mg 50 mg, Oral, DAILY, First | | 20 8:01 | | | | | dose on Sat04/04/19 at 0900 | | AM PST | | | | + +-------+ +-------+---+---+ +-------+ +-------+---+---+ | Given | 04/09/19 | 50 mg | | | | | 20 8:31 | | | | | | AM PST | | | | +-------+ +-------+---+---+ | Given | 04/08/19 | 50 mg | | | | | 20 8:07 | | | | | | AM PST | | | | +-------+ +-------+---+---+ +---+---+ | | | +---+---+ + +-------+ +-------+---+---+ | bisacodyl (DULCOLAX) | Given | 04/06/19 | 10 mg | | | | suppository 10 mg 10 mg, Rectal, | | 20 12:49 | | | | | DAILY PRN, Constipation, | | AM PST | | | | | Starting 04/03/19 at 1101 | | | | | | + +-------+ +-------+---+---+ +---+---+ | | | +---+---+ + +-------+ +--------+---+---+ | cholecalciferol (VITAMIN D-3) | Given | 04/10/19 | 4,000 | | | | tablet 4,000 Units 4,000 Units, | | 20 8:01 | Units | | | | Oral, DAILY, First dose on Sat | | AM PST | | | | | 04/04/19 at 0900 | | | | | | + +-------+ +--------+---+---+ +-------+ +--------+---+---+ | Given | 04/09/19 | 4,000 | | | | | 20 8:31 | Units | | | | | AM PST | | | | +-------+ +--------+---+---+ | Given | 04/08/19 | 4,000 | | | | | 20 8:07 | Units | | | | | AM PST | | | | +-------+ +--------+---+---+ +---+---+ | | | +---+---+ + +-------+ +---------+---+---+ | cyanocobalamin (VITAMIN B-12) | Given | 04/10/19 | 500 mcg | | | | tablet 500 mcg 500 mcg, Oral, | | 20 8:01 | | | | | DAILY, First dose on 04/04/19 | | AM PST | | | | | at 0900 | | | | | | + +-------+ +---------+---+---+ +-------+ +---------+---+---+ | Given | 04/09/19 | 500 mcg | | | | | 20 8:32 | | | | | | AM PST | | | | +-------+ +---------+---+---+ | Given | 04/08/19 | 500 mcg | | | | | 20 8:07 | | | | | | AM PST | | | | +-------+ +---------+---+---+ + +---+ | | | + +---+ | dextrose 50% injection 12.5-25 | | | g 12.5-25 g, Intravenous, EVERY | | | 15 MIN PRN, Low Blood Sugar, For | | | hypoglycemia. Give 12.5g (25ml) | | | IV if blood glucose 50-69 | | | mg/dL. Give 25g (50ml) IV if | | | blood glucose < 50, Starting Sat | | | 04/04/19 at 1031, Give over 2 min. | | | Repeat in 15 min if blood | | | glucose remains < 70 mg/dL. | | | Repeat blood glucose in 30 min | | | once blood glucose > 70., | | + +---+ | | | + +---+ + +-------+ +---------+---+---+ | docusate-senna (SENOKOT-S) | Given | 04/06/19 | 2 | | | | 50-8.6 mg per tablet 2 tablet 2 | | 20 9:24 | tablets | | | | tablet, Oral, 2 TIMES DAILY, | | PM PST | | | | | First dose on Sat04/03/19 at 1115 | | | | | | + +-------+ +---------+---+---+ +-------+ +---------+---+---+ | Given | 04/06/19 | 2 | | | | | 20 9:48 | tablets | | | | | AM PST | | | | +-------+ +---------+---+---+ | Given | 04/05/19 | 2 | | | | | 20 8:46 | tablets | | | | | PM PST | | | | +-------+ +---------+---+---+ +---+---+ | | | +---+---+ + +-------+ +--------+---+ + | enoxaparin (LOVENOX) 120 mg/0.8 | Given | 04/10/19 | 120 mg | | Abdomen- | | mL injection 120 mg 120 mg | | 20 8:04 | | | LLQ | | (rounded from 130.3 mg = 1 mg/kg | | AM PST | | | | | | | | | | | | 130.3 kg), Subcutaneous, EVERY | | | | | | | 12 HOURS (2 times per day), First | | | | | | | dose on Sat04/08/19 at 1600 | | | | | | + +-------+ +--------+---+ + +-------+ +--------+---+ + | Given | 04/09/19 | 120 mg | | Abdomen- | | | 20 7:41 | | | RUQ | | | PM PST | | | | +-------+ +--------+---+ + | Given | 04/09/19 | 120 mg | | Abdomen- | | | 20 8:30 | | | LLQ | | | AM PST | | | | +-------+ +--------+---+ + +---+---+ | | | +---+---+ + +-------+ + +---+---+ | HYDROcodone-acetaminophen | Given | 04/09/19 | 1 tablet | | | | (NORCO) 5-325 mg per tablet 1 | | 20 7:40 | | | | | tablet 1 tablet, Oral, EVERY 6 | | PM PST | | | | | HOURS PRN, Pain, Starting Mon | | | | | | | 04/06/19 at 1132 | | | | | | + +-------+ + +---+---+ +-------+ + +---+---+ | Given | 04/08/19 | 1 tablet | | | | | 20 10:23 | | | | | | PM PST | | | | +-------+ + +---+---+ | Given | 04/08/19 | 1 tablet | | | | | 20 3:21 | | | | | | PM PST | | | | +-------+ + +---+---+ +---+---+ | | | +---+---+ + +-------+ +------+---+---+ | HYDROmorphone (DILAUDID) | Given | 04/08/19 | 1 mg | | | | injection 0.5-1 mg 0.5-1 mg, | | 20 10:58 | | | | | Intravenous, EVERY 2 HOURS PRN, | | AM PST | | | | | Other, breakthrough pain, | | | | | | | Starting 04/03/19 at 2230 | | | | | | + +-------+ +------+---+---+ +-------+ +------+---+---+ | Given | 04/07/19 | 1 mg | | | | | 20 10:22 | | | | | | PM PST | | | | +-------+ +------+---+---+ | Given | 04/06/19 | 1 mg | | | | | 20 5:30 | | | | | | AM PST | | | | +-------+ +------+---+---+ +---+---+ | | | +---+---+ + +-------+ +--------+---+ + | lidocaine (XYLOCAINE) 4% | Given | 04/06/19 | 10 mLs | | Other | | topical solution 10 mL 10 mL, | | 20 11:56 | | | (Comment | | Topical, THREE TIMES WEEKLY (Once | | AM PST | | | ) | | per day on Sat), First | | | | | | | dose on Sat04/06/19 at 1600, With | | | | | | | NPWT dressing change, | | | | | | + +-------+ +--------+---+ + +---+---+ | | | +---+---+ + +-------+ +------+---+---+ | ondansetron (ZOFRAN) injection | Given | 04/04/19 | 4 mg | | | | 4 mg 4 mg, Intravenous, EVERY 6 | | 20 7:59 | | | | | HOURS PRN, Nausea, Vomiting, | | AM PST | | | | | Starting 04/03/19 at 2230, | | | | | | | First line agent, | | | | | | + +-------+ +------+---+---+ + +---+ | | | + +---+ | ondansetron (ZOFRAN) injection | | | 4 mg 4 mg, Intravenous, ONCE | | | PRN, Nausea, Vomiting, Starting | | | 04/04/19 at 1102, For 1 dose | | + +---+ | | | + +---+ | oxyCODONE (ROXICODONE) tablet | | | 5-10 mg 5-10 mg, Oral, EVERY 4 | | | HOURS PRN, Pain, Starting Mon | | | 04/06/19 at 1137 | | + +---+ | | | + +---+ + +-------+ +------+---+---+ | polyethylene glycol (MIRALAX) | Given | 04/06/19 | 17 g | | | | powder 17 g 17 g, Oral, DAILY, | | 20 9:48 | | | | | First dose on 04/04/19 at | | AM PST | | | | | 0900, Mix with 8 oz. water., | | | | | | + +-------+ +------+---+---+ +-------+ +------+---+---+ | Given | 04/05/19 | 17 g | | | | | 20 9:11 | | | | | | AM PST | | | | +-------+ +------+---+---+ +---+---+ | | | +---+---+ + +-------+ +-------+---+---+ | pravastatin (PRAVACHOL) tablet | Given | 04/09/19 | 20 mg | | | | 20 mg 20 mg, Oral, NIGHTLY, | | 20 7:41 | | | | | First dose on Sat04/03/19 at 2300 | | PM PST | | | | + +-------+ +-------+---+---+ +-------+ +-------+---+---+ | Given | 04/08/19 | 20 mg | | | | | 20 8:23 | | | | | | PM PST | | | | +-------+ +-------+---+---+ | Given | 04/07/19 | 20 mg | | | | | 20 8:35 | | | | | | PM PST | | | | +-------+ +-------+---+---+ + +---+ | | | + +---+ | warfarin per pharmacy PHARMACY | | | CONSULT, Starting 04/05/19 at | | | 1050, What is the goal INR range | | | for this patient? 2-3 | | + +---+ | | | + +---+ documented in this encounter
--- OUTSIDE RECORDS SUMMARY | ~2019-07-17 | XMS | Encounter Summary ---
Demographics + + + | Address | [address] | | | [place] [address] | + + + | Home Phone | | + + + | Preferred Language | Unknown | + + + | Marital Status | Single | + + + | Presybeterian Affiliation | Unknown | + + + | Race | White | + + + | Ethnic Group | Not or | + + + Author + + + | Author | [facility] | + + + | Organization | [facility] | + + + | Address | Unknown | + + + | Phone | Unavailable | + + + Support + + +---------+ + | Name | Relationship | Address | Phone | + + +---------+ + | Beatrice Paulson | ECON | Unknown | | + + +---------+ + Care Team Providers + +------+ + | Care Reading Specialist Name | Role | Phone | [...] Closed | | Clinical | Diagnoses | [place], | C[facility] Em[facility] | | | | Neurophysiolo | Myalgia | Hyacinth Alarcon, | [facility] [address] | | | | gy | Procedures | ,[facility] [address] | | | | | EMG/NERVE | [address] | Mailcode: | | | | | CONDUCTION | [place], | [address] | | | | | STUDIES,[place] | [place] | for Health | | | | | T - | [phone] | and Healing, | | | | | NEUROLOGY | Phone: | Building [address], | | | | | | [phone] | [address]th Floor | | | | | | Fax: | [place], [place] | | | | | | [phone] | [address] | | | | | | | Phone: | | | | | | | [phone] | | | | | | | Fax: | | | | | | | [phone] | +--------+--------+ + + + + Encounter Details +--------+ + + + + | Date | Type | Department | Care Team | Description | +--------+ + + + + | 10/08/ | Hospital | Neurophysiology | Teressa Triplett MD | | | 2012 | Encounter | EMG at [facility] [address] | [address] | | | | | [place] Mailcode: | [place] [address] | | | | | [facility] | [phone] | | | | | Health and Healing, | | | | | | | Kiera Bolivar | | | | | Floor [place], [place] | [address] | | | | | [address] | [place] [address] [place], | | | | | [phone] | [place] [address] | | | | | | [address]ora[address] Vanessa | | | | | | [place], [place] | | | | | | [address] | | | | | | [phone] | | +--------+ + + + + [...] + + | EMG/NERVE CONDUCTION | | 10/08/2012 | | Results for this | | STUDIES,ADULT - | | 12:00 AM | | procedure are in the | | NEUROLOGY | | PDT | | results section. | + +--------+ + + + documented in this encounter Results EMG/NERVE CONDUCTION STUDIES,ADULT - NEUROLOGY (10/08/2012 12:00 AM PDT) + + + | Narrative | Performed At | + + + | | | | | | + + + + + | Procedure Note | + + | Graham Villarreal - 10/10/2012 12:51 PM PDT | + + documented in this encounter Visit Diagnoses + + | Diagnosis | + + | Myalgia - Primary Mylagia and myositis, unspecified | + + documented in this encounter"
--- OUTSIDE RECORDS SUMMARY | ~2019-07-17 | XMS | Encounter Summary ---
Demographics + + + | Address | [address] | | | [place] [address] | + + + | Home Phone | | + + + | Preferred Language | Unknown | + + + | Marital Status | Single | + + + | Latter Day Affiliation | Unknown | + + + | Race | White | + + + | Ethnic Group | Not or | + + + Author + + + | Author | [facility] | + + + | Organization | [facility] | + + + | Address | Unknown | + + + | Phone | Unavailable | + + + Support + + +---------+ + | Name | Relationship | Address | Phone | + + +---------+ + | Beatrice Paulson | ECON | Unknown | | + + +---------+ + Care Team Providers + +------+ + | Care Information Security Consultant Name | Role | Phone | + +------+ + | Venkata Pettit MD | PCP | | + +------+ + Reason for Visit +--------+ + | Reason | Comments | +--------+ + | Other | upload outside consult. | +--------+ + Encounter Details +--------+ + + + + | Date | Type | Department | Care Team | Description | +--------+ + + + + | 11/10/ | Abstract | Neurology | Hyacinth Noel | Other (upload | | 2012 | | [facility] | MD Dorian,[facility] [address] | outside consult. ) | | | | at [place] for | [address] [place], | | | | | Health & Healing | [place] [address] | | | | | [address] | [phone] | | | | | Mailcode: CH8C | | | | | | [facility] | | | | | | and Healing, | | | | | | [facility] | | | | | | [facility], [place] | | | | | | [address] | | | | | | [phone] | | | +--------+ + + + [...] Not on filedocumented as of this encounter Visit Diagnoses Not on filedocumented in this encounter"
--- OUTSIDE RECORDS SUMMARY | ~2019-07-17 | XMS | Encounter Summary ---
Demographics + + + | Address | [address] | | | [place] [address] | + + + | Home Phone | | + + + | Preferred Language | Unknown | + + + | Marital Status | | + + + | Caodaism Affiliation | Unknown | + + + | Race | Unknown | + + + | Ethnic Group | Unknown | + + + Author + + + | Author | [facility] | | | and [place] | + + + | Organization | [facility] | | | and [place] | + + + | Address | Unknown | + + + | Phone | Unavailable | + + + Support + + + + + | Name | Relationship | Address | Phone | + + + + + | Veronica Anderson | ECON | [place] | | | | | [address] | | + + + + + | Beatrice Paulson | ECON | [address] | | | | | [place] | | | | | [address] | | + + + + + Care Team Providers + +------+ + | Care Mri Ct Tech Name | Role | Phone | + [...] | [address] | [facility] [place] | (Primary Dx) | | | | [place] | [address] | | | | | [address] | | | | | | [phone] | | | +--------+ + + + [...] | | | | | [facility] | | | | | | [place] | | | | | | [address] | | | | | | | | +--------+---------+ + + + documented as of this encounter Visit Diagnoses + + | Diagnosis | + + | Status post lumbar spinal fusion - Primary Arthrodesis status | + + documented in this encounter"
--- OUTSIDE RECORDS SUMMARY | ~2019-07-17 | XMS | Clinical Summary ---
Demographics + + + | Address | [address] | | | [place] [address] | + + + | Home Phone | | + + + | Preferred Language | Unknown | + + + | Marital Status | | + + + | Jehovah'S Witness Affiliation | Unknown | + + + | Race | Unknown | + + + | Ethnic Group | Unknown | + + + Author + + + | Author | [facility] | | | and [place] | + + + | Organization | [facility] | | | and [place] | + + + | Address | Unknown | + + + | Phone | Unavailable | + + + Support + + + + + | Name | Relationship | Address | Phone | + + + + + | Veronica Anderson | ECON | [place] | | | | | [address] | | + + + + + | Beatrice Paulson | ECON | [address] | | | | | [place] | | | | | [address] | | + + + + + Care Team Providers + +------+ + | Care Sld Inclusion Teacher Name | Role | Phone | + [...] automatically from request for surgery | | [id number] | + + + + + | Pseudoaneurysm | 04/03/2019 | + + + + + | Overview: Added automatically from request for surgery | | [id number] | + + + + + | Decreased hemoglobin | 04/03/2019 | + + + + + | Overview: Added automatically from request for surgery | | [id number] | + + + + + | Chronic atrial fibrillation | 04/03/2019 | + + + + + | Overview: Added automatically from request for surgery | | [id number] | + + + + + | Essential hypertension | 04/03/2019 | + + + + + | Overview: Added automatically from request for surgery | | [id number] | + + + + + | Pseudoaneurysm following procedure | 04/03/2019 | + + + | Acute blood loss anemia | 04/03/2019 | + + + | Other persistent atrial fibrillation | 12/19/2018 | + + + + + | Overview: Added automatically from request for surgery | | [id number] | + + + + + | [...] | | | | | | disease) ([facility] | +--------+ + + + + | [...] | + + + + | INFLUENZA, [id number], | 02/25/2009 | | | UNSPECIFIED | [...] | | | | | [facility] | | | | | | [place] | | | | | | [address] | | | | | | | [...] MD | | | | | | ([id number]) on 07/01/2019 | | | | | [...] | | | analysis: Left lower extremity: CARPENTER REFRIGERATOR prox: 196, triphasic DFA | | | prox: 141, triphasic SFA prox: 152, triphasic SFA Mid: 99, triphasic | | | SFA dist: 96, triphasic Pop mid: 114, triphasic CARLOS prox: 106, | | | triphasic CARLOS dist: 97, triphasic TUNE UP MECHANIC prox: 101, triphasic TUNE UP MECHANIC | | | dist: 53, triphasic Peroneal [...] | | Left lower extremity: | | CARPENTER REFRIGERATOR prox: 196, triphasic | | DFA prox: 141, triphasic | | SFA prox: 152, triphasic | | SFA Mid: 99, triphasic | | SFA dist: 96, triphasic | | Pop mid: 114, triphasic | | CARLOS prox: 106, triphasic | | CARLOS dist: 97, triphasic | | TUNE UP MECHANIC prox: 101, triphasic | | TUNE UP MECHANIC dist: 53, triphasic | | Peroneal prox: [...] + + | Performing | Address | City[facility] Phone Number | | Organization | [...] + +--------+ | MEDICARE | MEDICA | [id number] | 10/13/19 | [phone] | | Medica | | | RE | | 08-Pre | 5 | | re | | | PART A | | sent | | | | | | AND B | | | | | | + +--------+ +--------+ + +--------+ | MEDICARE | MEDICA | [id number] | | [phone] | | Medica | | | RE | | 012-Pr | 5 | | re | | | PART A | | esent | | | | | | AND B | | | | | | + +--------+ +--------+ + +--------+ | MODA | MODA | [id number] | | [phone] | [address] | Indemn | | | HEALTH | | 008-Pr | 9 | [phone] | ity | | | MDCR | | esent | | [place], | | | | [place] | | | | [place] [address] | | + +--------+ +--------+ + +--------+ | MODA | MODA | [id number] | 02/11/19 | [phone] | [address] | Indemn | | | HEALTH | | 19-Pre | 9 | [phone] | ity | | | MDCR | | sent | | [place], | | | | [place] | | | | [place] [address] | | + +--------+ +--------+ + +--------+ [...] | | al/Fam | | 1941 | [phone] | [place], [place] | | | theresa | | | [address] (Home) | [address] | + +--------+ +--------+ + + | Kassie Bear | Person | Self [birth year] | [address] | | | al/Fam | | 1941 | [phone] | [place], [place] | | | [place] | | | 8 (Home) | [address] | + +--------+ +--------+ + + Advance Directives + + + + + | Type | Date Recorded | Patient | Explanation | | | | Air Cargo Agent | | + + + + + | Power of | | | | | Engine Pilot | | | | + + + [...]
--- OUTSIDE RECORDS SUMMARY | ~2019-07-17 | XMS | Encounter Summary ---
Demographics + + + | Address | [address] | | | [place] [address] | + + + | Home Phone | | + + + | Preferred Language | Unknown | + + + | Marital Status | | + + + | Restorationism Affiliation | Unknown | + + + | Race | Unknown | + + + | Ethnic Group | Unknown | + + + Author + + + | Author | [facility] | | | and [place] | + + + | Organization | [facility] | | | and [place] | + + + | Address | Unknown | + + + | Phone | Unavailable | + + + Support + + + + + | Name | Relationship | Address | Phone | + + + + + | Veronica Anedrson | ECON | [place] | | | | | [address] | | + + + + + | Beatrice Paulson | ECON | [address] | | | | | [place] | | | | | [address] | | + + + + + Care Team Providers + +------+ + | Care Threat Monitoring Analyst Name | Role | Phone | [...] | | | | Diagnoses | | Recinos, | | | | | Other | | DO Lori | | | | | persistent | | [address] | | | | | atrial | | [address] | | | | | fibrillation | | [place], [place] | | | | | (HCC) | | [address] Phone: | | | | | Procedures | | [phone] | | | | | CT CATH PLMT | | Fax: | | | | | L HRT & | | [phone] | | | | | ARTS W/NJX & | | | | | | | ANGIO IMG | | | | | | | S&I | | | +--------+--------+ + + + + Encounter Details +--------+---------+ + + + | Date | Type | Department | Care Team | Description | +--------+---------+ + + + | 12/22/ | Surgery | [facility] | Lori Recinos DO | CV EP CARDIOVERSION | | 2019 | | CENTER CV INTRA OP | [address] | | | | | [address] | [place], [place] | | | | | [place], [place] | [address] | | | | | [address] | | | | | | [phone] | | | +--------+---------+ + + + [...] + + + | Blood Pressure | 130/80 | 12/22/2018 2:45 PM | | | | | PST | | + + + + + | Pulse | 61 | 12/22/2018 2:45 PM | | | | | PST | | + + + + + | Temperature | 36.2 C (97.2 F) | 12/22/2018 1:52 PM | | | | | PST | | + + + + + | Respiratory Rate | 18 | 12/22/2018 2:45 PM | | | | | PST | | + + + + + | Oxygen Saturation | 98% | 12/22/2018 2:45 PM | | | | | PST | | + + + + + | Inhaled Oxygen | - | - | | | Concentration | | | | + + + + + | Weight | 127 kg (279 lb 15.8 | 12/22/2018 11:54 AM | | | | oz) | PST | | + + + + + | Height | 172.7 cm (5' 8") | 12/22/2018 11:54 AM | | | | | PST | | + + + + + | Body Mass Index | 42.57 | 12/22/2018 11:54 AM | | | | | PST | | + + + + + documented in this encounter Discharge Instructions Instructions Gaby Junior RN - 12/22/2018 Discharge Instructions for Cardioversion Your healthcare provider performed a procedure called cardioversion. Your healthcare provid er used a controlled electric shock or a medicine to briefly stop all electrical activity in your heart. This helped restore your heart s normal rhythm. Here are some instructions to follow while you recover. Home care Because cardioversion typically requires sedation, you won't be able to drive home. You will need a ride. Wait at least 24 hours before driving a car or operating heavy machinery a fter receiving sedating medicines. Don t be alarmed if the skin on your chest is irritated or feels like it is sunburned. Your healthcare provider may prescribe a soothing lotion to relieve this discomfort.These minor symptoms will go away in a few days. Ask your healthcare provider about medicines to keep your heart rhythm steady. If you were prescribed medicine, take it as instructed by your healthcare provider. Don t skip doses or take double doses. Cardioversion requires blood thinners for at least 4 we eks to prevent a delayed risk of stroke when treating atrial fibrillation or atrial flutter. Be sure you discuss which medicine you are taking to prevent stroke. Ask when you need to h ave your medicine levels checked, and whether you may be able to stop taking it in the futur e or whether it is recommended that you take it for life. Some of these blood-thinning medic masha will have the dose adjusted, and interact with other medicines or foods. Your healthcar e team will give you full instructions on what to watch out for. Report bleeding or symptoms of stroke immediately to your healthcare team and seek emergency medical attention. Learn to take your own pulse. Keep a record of your results. Ask your healthcare provide r when you should seek emergency medical attention. He or she will tell you which pulse rate reading is dangerous. Keep in mind this procedure may need to be repeated if the abnormal heart rhythm returns . After the procedure, your healthcare provider will tell you if the treatment worked or if you will need further treatments or medication. Follow-up care Make a follow-up appointment, or as directed. Call 911 Call 911right away if you have: Chest pain Shortness of breath Loss of vision, speech, or strength or coordination in any body part When to call your healthcare provider Call your healthcare provider right away if you: Feel faint,dizzy, or lightheaded Have chest pain with increased activity Have irregular heartbeat or fast pulse Have bleeding issues from blood-thinning medicines Date Last Reviewed: 04/11/201619994983-7951 [employer]. [address] [place] [address], [place] [address]. All righ ts reserved. This information is not intended as a substitute for professional medical care. Always follow your healthcare professional's instructions. After Your Procedure You ve just received medication called anesthesia to keep you comfortable and pain-free. You may experience some pain or nausea. This is common. Going Home Have an adult family member or friend drive you home. For the first 24 hours after your roma nicole: ? Do not drive or use heavy equipment. ? Do not make important decisions or sign legal documents. ? Avoid alcohol. ? Have someone stay with you, if needed. He or she can watch for problems and help keep you safe. Be sure to keep all follow-up appointments with your doctor. And rest after your procedure for as long as your doctor tells you to. Coping with Pain If you have pain after surgery, pain medication will help you feel better. Take your medica tion as directed, before pain becomes severe. Consider other ways to control pain, such as with heat, ice, and relaxation. To get the best relief possible, remember these points: ? Pain medications can upset your stomach. Taking them with a little food may help. ? Most pain relievers taken by mouth need at least 20 to 30 minutes to take effect. ? Taking medication on a schedule can help you remember to take it. Try to time your medica tion so that you can take it before beginning an activity, such as dressing, walking, or sit ting down for dinner. ? Don t drink alcohol while taking pain medication. ? Don t drive or operate machinery while taking pain medications as they can slow your re flexes. If your health care provider tells you to take acetaminophen or ibuprofen to help relieve y our pain, ask him or her how much you are supposed to take each day. Constipation ? Constipation is a common side effect of pain medications and anesthetics. Contact your do ctor before taking any medications like laxatives or stool softeners to help relieve constip ation, unless they have been prescribed for you. ? Drinking lots of non-alcoholic fluids and eating foods like fruits and vegetables that ar e high in fiber can also help. Managing Nausea Some people have an upset stomach after surgery. This is often due to anesthesia, pain, jair n medications, or the stress of surgery. If you were on a special diet before surgery, ask your doctor if you should follow it during recovery. These tips may help: ? Don t push yourself to eat. Your body will tell you when to eat and how much. ? Start off with clear liquids and soup. They are easier to digest. Slowly move to solid f oods. Don t eat fatty, rich, or spicy foods at first. ? Don t force yourself to have three large meals a day. Instead, eat smaller amounts more often. Blood Clot Prevention Deep vein thrombosis (DVT) is a clot that forms in your deep veins usually in the leg o r thigh. A pulmonary embolism (PE) occurs when a clot in the bloodstream travels through th e heart and into the lungs. If the clot becomes stuck in a blood vessel in the lungs, blood flow can be blocked which causes life-threatening heart and lung problems. The following are prevention tips: ? Elevate your legs whenever they feel swollen or heavy ? Maintain a healthy weight ? Quit smoking ? Avoid sitting, standing, or lying down for long periods without moving your legs and feet . o When traveling by car, make frequent stops to get out and move around. o On long airplane, train, or bus rides, get up and move around when possible. o If you can t get up, wiggle your toes and tighten your calves to keep your blood moving . If you have any of these symptoms of DVT or PE, call your doctor: ? Swelling, pain, or both, often in one limb ? Redness or warmth, often in one limb ? Sudden, continuous pain deep in your muscle ? Worsening ache when you are active or when you stand still for a long time ? Rapid, pounding, or unusual heartbeat ? Sweating more than usual. ? Chest pain, trouble breathing, coughing up blood, skin turning blue, or fainting Call 911. documented in this encounter Medications at Time [...] amiodarone | Take 1 tablet by | 30 | 5 | 11/07/19 | | | (PACERONE) 200 mg | mouth 2 times daily. | tablet | | 19 | 9 | | tablet | | | | | | + + + +---------+ + + | warfarin | Take 5 mg by mouth | | 0 | | | | (COUMADIN) 5 mg | Daily. | | | | 0 | | tablet | | | | | | + + + +---------+ + + documented as of this encounter Progress Notes Gaby Junior RN - 12/22/2018 3:23 PM PSTPatient awake, alert, drinks po fluids without d ifficulty. Ambulated in alvarado with RN standby. Apical and radial pulse regular afterwards. Anaya garcia instructions given to patient and friends at bedside. Stated understanding after graciela rodríguez answered. Out to car via wheelchair in no apparent distress. documented in this encounter Plan of Treatment +--------+---------+ + + + | Date | Type | Specialty | Care Team | Description | +--------+---------+ + + + | 10/06/ | Office | Cardiology | Elvin Jamil | | | 2019 | Visit | | MD [address] | | | | | | [facility] | | | | | | [place], [place] | | | | | | [address] | | | | | | | | +--------+---------+ + + + documented as of this encounter Procedures + +--------+ + + + | Procedure Name | Priori | Date/Time | Associated Diagnosis | Comments | | | ty | | | | + +--------+ + + + | ECG 12 LEAD | STAT | 12/22/2018 | | Results for this | | | | 1:46 PM | | procedure are in the | | | | PST | | results section. | + +--------+ + + + | CV EP CARDIOVERSION | Routin | 12/22/2018 | Other persistent | Results for this | | | e | 1:33 PM | atrial fibrillation | procedure are in the | | | | PST | ([facility]) | results section. | + +--------+ + + + | PROTIME INR | STAT | 12/22/2018 | | Results for this | | | | 12:31 PM | | procedure are in the | | | | PST | | results section. | + +--------+ + + + | CBC WITH | STAT | 12/22/2018 | | Results for this | | DIFFERENTIAL | | 12:31 PM | | procedure are in the | | | | PST | | results section. | + +--------+ + + + | COMPREHENSIVE | STAT | 12/22/2018 | | Results for this | | METABOLIC PANEL | | 12:31 PM | | procedure are in the | | | | PST | | results section. | + +--------+ + + + | ECG 12 LEAD | STAT | 12/22/2018 | | Results for this | | | | 12:26 PM | | procedure are in the | | | | PST | | results section. | + +--------+ + + + documented in this encounter Results ECG 12 lead (12/22/2018 1:46 PM PST) + + + + + + | Component | Value | Ref Range | Performed | Pathologist | | | | | At | Signature | + + + + + + | VENTRICULAR | 61 | BPM | [facility] | | | RATE EKG | | | | | + + + + + + | ATRIAL RATE | 61 | BPM | [facility] | | + + + + + + | P-R | 238 | ms | [facility] | | | INTERVAL | | | | | + + + + + + | QRS | 92 | ms | [facility] | | | DURATION | | | | | + + + + + + | Q-T | 464 | ms | [facility] | | | INTERVAL | | | | | + + + + + + | Q-T | 467 | ms | [facility] | | | INTERVAL | | | | | | (CORRECTED) | | | | | + + + + + + | P WAVE AXIS | 18 | degrees | [facility] | | + + + + + + | QRS AXIS | 10 | degrees | [facility] | | + + + + + + | T AXIS | 37 | degrees | [facility] | | + + + + + + | INTERPRETAT | Sinus rhythm with 1st | | [facility] | | | ION TEXT | degree A-V | | | | | | blockOtherwise normal | | | | | | ECGWhen compared with | | | | | | ECG of 22-DEC-2018 | | | | | | 12:26,Sinus rhythm has | | | | | | replaced Atrial | | | | | | fibrillationConfirmed by | | | | | | ROMA LOUISE MD ([id number]) | | | | | | on 12/22/2018 10:04:28 | | | | | | PM | | | | + + [...] + +---------+ + + CV EP PROCEDURE (12/22/2018 1:33 PM PST) + + | Specimen | + + | | + + + + -+ | Narrative | Performed At | + + -+ | Electrical | | | Cardioversion Procedure Note Procedure Date- 12/22/18Procedures | | | Performed- Electrical cardioversion with anesthesiaIndication- | | | Symptomatic persistent atrial fibrillationPreop Diagnosis- persistent | | | atrial fibrillationPostop Diagnosis- conversion to normal sinus | | | rhythm Procedure Description:The patient was brought to the procedure | | | room in a fasting state. After informed consent was obtained, a time | | | out was performed. Pads were placed in the AP position. After adequate | | | sedation was given by anesthesia in the room, a synchronized | | | defibrillation at 200J was given. There was a brief pause after which | | | he was in normal sinus rhythm. He tolerated the procedure well without | | | any immediate complications. Sedation- propofol per | | | anesthesia Recommendations: Post cardioversion EKG has been ordered. | | | Continue anticoagulation with Coumadin. Continue amiodarone 200 mg | | | by mouth daily. Continue atenolol. Follow-up with cardiology as | | | scheduled | | |Sedation- propofol per anesthesia | | | | | |Recommendations: Post cardioversion EKG has been ordered. Continue | | |anticoagulation with Coumadin. Continue amiodarone 200 mg by mouth daily. | | | Continue atenolol. Follow-up with cardiology as scheduled | | + + -+ Protime INR (12/22/2018 12:31 PM PST) + + + + + + | Component | Value | Ref Range | Performed | Pathologist | | | | | At | Signature | + + + + + + | INR | 2.2Comment: REFERENCE | | [facility] | | | | RANGE:0.9 - 1.2 [...] | | | | | performed at [facility];[address] | | | | | | [address];[place] | | | | | | [address] | | | | + + + + + + + + | Specimen | + + | Blood | + + + + + + + | Performing | Address | City/State/Zipcode | Phone Number | | Organization | | | | + + + + + | [facility] | [address] | [place] [address] | [phone] | + + + + + Comprehensive Metabolic Panel (12/22/2018 12:31 PM PST) + + + + + + | Component | Value | Ref Range | Performed | Pathologist | | | | | At | Signature | + + + + + + | Na | 143 | 135 - 145 | [facility] | | | | | mmol/L | LABORATORY | | + + + + + + | K | 4.0 | 3.5 - 4.9 | [facility] | | | | | mmol/L | LABORATORY | | + + + + + + | Cl | 110 (H) | 99 - 109 mmol/L | [facility] [...] + + + + | Glucose | 118 (H) | 65 - 99 mg/dL | [facility] | | | | | | LABORATORY | | + + + + + + | BUN | 14 | 8 - 25 mg/dL | [facility] | | | | | | LABORATORY | | + + + + + + | Creatinine | 0.65 | 0.50 - 1.00 | [facility] | | | | | mg/dL | LABORATORY | | + + + + + + | BUN/Creatin | 22 | | [facility] | | | ine Ratio | | | LABORATORY | | + + + + + + | Calcium | 9.1 | 8.5 - 10.5 | [facility] | | | | | mg/dL | LABORATORY | | + + + + + + | Protein, | 6.4 | 6.3 - 8.2 g/dL | [facility] | | | Total | | | LABORATORY | | + + + + + + | Albumin | 4.2 | 3.3 - 4.8 g/dL | [facility] | | | | | | LABORATORY | | + + + + + + | Globulin | 2.2 | 1.3 - 4.9 g/dL | [facility] | | | | | | LABORATORY | | + + + + + + | A/G Ratio | 1.9 | 1.0 - 2.4 | [facility] | | | | | | LABORATORY | | + + + + + + | BILIRUBIN, | 0.6 | 0.1 - 1.5 mg/dL | [facility] | | | TOTAL | | | LABORATORY | | + + + + + + | ALK PHOS | 104 | 35 - 115 U/L | [facility] | | | | | | LABORATORY | | + + + + + + | AST | 18 | 10 - 45 U/L | [facility] | | | | | | LABORATORY | | + + + + + + | ALT | 14 | 10 - 65 U/L | [facility] [...] | | | | | performed at [facility];[address] | | | | | | [address];[place] | | | | | | [address] | | | | + + + + + + + + | Specimen | + + | Blood | + + + + + + + | Performing | Address | City/State/Zipcode | Phone Number | | Organization | | | | + + + + + | [facility] | [address] | [place] [address] | [phone] | + + + + + CBC with Differential (12/22/2018 12:31 PM PST) + + + + + + | Component | Value | Ref Range | Performed | Pathologist | | | | | At | Signature | + + + + + + | WBC | 5.91 | 3.80 - 11.00 | [facility] | | | | | K/uL | LABORATORY | | + + + + + + | RBC | 4.75 | 3.70 - 5.10 | [facility] | | | | | M/uL | LABORATORY | | + + + + + + | Hemoglobin | 14.4 | 11.3 - 15.5 | [facility] | | | | | g/dL | LABORATORY | | + + + + + + | Hematocrit | 43.2 | 34.0 - 46.0 % | [facility] | | | | | | LABORATORY | | + + + + + + | MCV | 91.0 | 80.0 - 100.0 fl | [facility] | | | | | | LABORATORY | | + + + + + + | MCH | 30.4 | 27.0 - 34.0 pg | [facility] | | | | | | LABORATORY | | + + + + + + | MCHC | 33.4 | 32.0 - 35.5 | [facility] | | | | | g/dL | LABORATORY | | + + + + + + | RDW-SD | 44.2 | 37 - 53 fl | [facility] | | | | | | LABORATORY | | + + + + + + | Platelet | 222 | 150 - 400 K/uL | [facility] | | | Count | | | LABORATORY | | + + + + + + | MPV | 8.6 | fl | [facility] | | | | | | LABORATORY | | + + + + + + | Diff Type | AUTOMATED | | [facility] | | | | | | LABORATORY | | + + + + + + | % | 71.66 | % | [facility] | | | Neutrophils | | | LABORATORY | | + + + + + + | % | 15.65 | % | [facility] | | | Lymphocytes | | | LABORATORY | | + + + + + + | Monocyte % | 9.23 | % | [facility] | | | | | | LABORATORY | | + + + + + + | Eosinophils | 2.73 | % | [facility] | | | % | | | LABORATORY | | + + + + + + | Basophils % | 0.73 | % | [facility] | | | | | | LABORATORY | | + + + + + + | Neutrophils | 4.23 | 1.90 - 7.40 | [facility] | | | , Absolute | | K/uL | LABORATORY | | + + + + + + | Absolute | 0.92 (L) | 1.00 - 3.90 | [facility] | | | Lymphocytes | | K/uL | LABORATORY | | + + + + + + | Absolute | 0.55 | 0.00 - 0.80 | [facility] | | | Monocytes | | K/uL | LABORATORY | | + + + + + + | Eosinophils | 0.16 | 0.00 - 0.50 | [facility] | | | , Absolute | | K/uL | LABORATORY | | + + + + + + | Basophils, | 0.04Comment: Testing | 0.00 - 0.10 | [facility] | | | Absolute | performed at [facility];[address] | K/uL | LABORATORY | | | | [address];[place], [place] | | | | | | [address] | | | | + + + + + + + + | Specimen | + + | Blood | + + + + + + + | Performing | Address | City/State/Zipcode | Phone Number | | Organization | | | | + + + + + | [facility] | [address] | [place] [address] | [phone] | + + + + + ECG 12 lead (12/22/2018 12:26 PM PST) + + + + + + | Component | Value | Ref Range | Performed | Pathologist | | | | | At | Signature | + + + + + + | VENTRICULAR | 68 | BPM | [facility] | | | RATE EKG | | | | | + + + + + + | ATRIAL RATE | 78 | BPM | [facility] | | + + + + + + | QRS | 98 | ms | [facility] | | | DURATION | | | | | + + + + + + | Q-T | 430 | ms | [facility] | | | INTERVAL | | | | | + + + + + + | Q-T | 457 | ms | [facility] | | [...] + + + | INTERPRETAT | Atrial | | [facility] | | | ION TEXT | fibrillationAbnormal | | | | | | ECGWhen compared with | | | | | | ECG of 28-AUG-2018 | | | | | | 10:01,Previous ECG has | | | | | | undetermined rhythm, | | | | | | needs reviewConfirmed by | | | | | | ROMA LOUISE MD ([id number]) | | | | | | on 12/22/2018 10:03:07 | | | | | | PM | | | | + + [...] + | Diagnosis | + + | Other persistent atrial fibrillation (HCC) | + + documented in this encounter Admitting Diagnoses + + | Diagnosis | + + | Other persistent atrial fibrillation (HCC) | + + documented in this encounter
--- OUTSIDE RECORDS SUMMARY | ~2019-07-17 | XMS | Encounter Summary ---
Demographics + + + | Address | [address] | | | [place] [address] | + + + | Home Phone | | + + + | Preferred Language | Unknown | + + + | Marital Status | | + + + | Hindu Affiliation | Unknown | + + + | Race | Unknown | + + + | Ethnic Group | Unknown | + + + Author + + + | Author | [facility] | | | and [place] | + + + | Organization | [facility] | | | and [place] | + + + | Address | Unknown | + + + | Phone | Unavailable | + + + Support + + + + + | Name | Relationship | Address | Phone | + + + + + | Veronica Anderson | ECON | [place] | | | | | [address] | | + + + + + | Beatrice Paulson | ECON | [address] | | | | | [place] | | | | | [address] | | + + + + + Care Team Providers + +------+ + | Care General Utility Worker Name | Role | Phone | + [...] Closed | | Radiology | Diagnoses | Will, | [facility] | | | | | Other | Michael S, | [address] | | | | | spondylosis | MD [address] | [place], | | | | | with | [address] | [place] | | | | | radiculopath | [place], | [address] | | | | | y, | [place] | Phone: | | | | | cervicothora | [address] | [phone] | | | | | cic region | Phone: | Fax: | | | | | Procedures | [phone] | [phone] | | | | | MRI Cervical | Fax: | | | | | | Spine wo | [phone] | | | | | | Contrast | | | +--------+--------+ + + + + Reason for Visit Diagnostic/Screening (Routine) +--------+--------+ + + + + | Status | Reason | Specialty | Diagnoses / | Referred By | Referred To | | | | | Procedures | Contact | Contact | +--------+--------+ + + + + | Closed | | Radiology | Diagnoses | Will, | [facility] | | | | | Other | Michael S, | [address] | | | | | spondylosis | MD [address] | [place] [address], | | | | | with | [address] | [place] | | | | | radiculopath | [place], | [address] | | | | | y, | [place] | Phone: | | | | | cervicothora | [address] | [phone] | | | | | cic region | Phone: | Fax: | | | | | Procedures | [phone] | [phone] | | | | | MRI Cervical | Fax: | | | | | | Spine wo | [phone] | | | | | | Contrast | | | +--------+--------+ + + + + Encounter Details +--------+ + + + + | Date | Type | Department | Care Team | Description | +--------+ + + + + | 12/13/ | Hospital | [facility] | Michael Will, | Other spondylosis | | 2016 | Encounter | [facility] [address] | with radiculopathy, | | | | [address], | [address] [place], [place] | cervicothoracic | | | | [place] [address] | [address] | region | | | | [phone] | [phone] | | | | | | | [...] [address] | | | | | | [facility] | | | | | | [place] | | | | | | [address] | | | | | | | | +--------+---------+ + + + documented as of this encounter Procedures + +--------+ + + + | Procedure Name | Priori | Date/Time | Associated Diagnosis | Comments | | | ty | | | | + +--------+ + + + | MRI CERVICAL SPINE | Routin | 12/14/2015 | Other spondylosis | Results for this | | WO CONTRAST | e | 1:49 PM | with radiculopathy, | procedure are in the | | | | PDT | cervicothoracic | results section. | | | | | region | | + +--------+ + + + documented in this encounter Results MRI Cervical Spine wo Contrast (12/14/2015 1:49 PM PDT) + + | Specimen | + + | | + + + + + | Narrative | Performed At | + + + | UNENHANCED MRI CERVICAL SPINE 12/14/2015 1:29 PM CLINICAL | [facility] | | HISTORY: Other spondylosis with radiculopathy, cervicothoracic region | | | , patient reports left arm tingling COMPARISON: Cervical MRI | | | November 2012, cervical radiographs July 2011 TECHNIQUE: The | | | following 3T MR sequences of the cervical spine were obtained: 1. | | | Sagittal and coronal T1. 2. Axial and sagittal T2. 3. Axial | | | GRE. 4. Sagittal STIR. FINDINGS: There is straightening and | | | mild reversal of the cervical lordosis. Solid appearing changes of | | | ACDF are again present at C5-6. Marrow signal is normal. Cervical | | | vertebral height is maintained, without evidence of fracture. | | | Imaged contents of the posterior fossa and foramen magnum are | | | unremarkable. The cervical and imaged upper thoracic spinal cord | | | demonstrates normal intrinsic signal intensity and caliber. There | | | is mucous membrane thickening posteriorly in the imaged left | | | maxillary sinus. The imaged paraspinal and upper thoracic | | | structures are unremarkable. The craniocervical junction and C1-2 | | | level are unremarkable on provided sagittal and coronal images | | | through the region. Annular tear and posterior disc protrusion | | | persist at C2-3, combining with dorsal ligamentous and facet | | | hypertrophy to at least mildly narrow the central canal and neural | | | foramina to a similar degree on provided sagittal images through the | | | region. Posterior disc bulge and left foraminal disc osteophyte | | | complex persist at C3-4, combining with dorsal ligamentous and facet | | | hypertrophy to mild to moderately narrow the central canal and | | | moderate to severely narrow the left neural foramen to a similar | | | degree. Moderate disc space narrowing, annular tear and a | | | generalized disc osteophyte complex persist at C4-5, combining with | | | dorsal ligamentous and facet hypertrophy to at least moderately | | | narrow the central canal to a greater degree, flattening the contours | | | of the spinal cord. Moderate to severe right and moderate left | | | foraminal stenosis is more pronounced as well. Vertebral | | | osteophytes again mild to moderately narrow the left neural foramen at | | | the operated C5-6 level, and combine with dorsal ligamentous | | | hypertrophy to fairly mildly narrow the central canal as well. | | | Moderate disc space narrowing, mild Modic endplate hyperintensity and | | | a generalized disc osteophyte complex persist at C6-7, combining with | | | dorsal ligamentous and facet hypertrophy to moderately narrow the | | | central canal and left neural foramen and more mildly narrow the | | | right neural foramen to a similar degree. 2 mm anterolisthesis | | | and left greater than right foraminal disc osteophyte complexes | | | persist at C7-T1, moderately narrowing the left neural foramen and | | | mildly narrowing the right neural foramen to a similar degree. | | | Dorsal ligamentous hypertrophy combines with a minimal posterior | | | disc bulge to again mildly narrow the central canal. | | | Uncovertebral hypertrophy again mild to moderately narrows the neural | | | foramina at T1-2, as visualized on provided sagittal images. No | | | significant disc pathology or stenosis is visible elsewhere in the | | | imaged upper thoracic spine on provided sagittal images through the | | | region. IMPRESSION - 1. SIMILAR DEGENERATIVE DISC DISEASE, MILD | | | TO MODERATE CENTRAL CANAL STENOSIS AND MODERATE TO SEVERE LEFT | | | FORAMINAL STENOSIS AT C3-4 COMPARED WITH MRI OF NOVEMBER 2012. 2. 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 3. SIMILAR MILD CENTRAL CANAL STENOSIS AND MILD TO | | | MODERATE LEFT FORAMINAL STENOSIS AT THE OPERATIVELY FUSED C5-6 LEVEL. | | | 4. SIMILAR DEGENERATIVE DISC DISEASE AND MODERATE CENTRAL CANAL | | | AND LEFT FORAMINAL STENOSIS AT C6-7. 5. SIMILAR MILD | | | ANTEROLISTHESIS AND MODERATE LEFT FORAMINAL STENOSIS AT C7-T1. 6. | | | MILD REVERSAL OF THE CERVICAL LORDOSIS. Dictated and Signed by: | | | Andreas Starr MD Electronically signed: 12/14/2015 4:02 PM | | + + + + + | Procedure Note | + + | Bhavin, Rad Results In - 12/14/2015 4:05 PM PDT UNENHANCED MRI CERVICAL SPINE 12/14/2015 | | 1:29 PMCLINICAL HISTORY: Other spondylosis with radiculopathy, cervicothoracic region | | ,patient reports left arm tinglingCOMPARISON: Cervical MRI November 2012, cervical | | radiographs July 2011TECHNIQUE: The following 3T MR sequences of the cervical spine | | were obtained:1. Sagittal and coronal T1.2. Axial and sagittal T2.3. Axial GRE.4. | | Sagittal STIR.FINDINGS: There is straightening and mild reversal of the cervical | | lordosis. Solid appearing changes of ACDF are again present at C5-6. Marrow signal | | isnormal. Cervical vertebral height is maintained, without evidence of fracture. Imaged | | contents of the posterior fossa and foramen magnum are unremarkable. Thecervical and | | imaged upper thoracic spinal cord demonstrates normal intrinsicsignal intensity and | | caliber. There is mucous membrane thickening posteriorlyin the imaged left maxillary | | sinus. The imaged paraspinal and upper thoracicstructures are unremarkable.The | | craniocervical junction and C1-2 level are unremarkable on provided sagittaland coronal | | images through the region.Annular tear and posterior disc protrusion persist at C2-3, | | combining withdorsal ligamentous and facet hypertrophy to at least mildly narrow the | | centralcanal and neural foramina to a similar degree on provided sagittal imagesthrough | | the region.Posterior disc bulge and left foraminal disc osteophyte complex persist at | | C3-4,combining with dorsal ligamentous and facet hypertrophy to mild to moderatelynarrow | | the central canal and moderate to severely narrow the left neural foramento a similar | | degree.Moderate disc space narrowing, annular tear and a generalized disc | | osteophytecomplex persist at C4-5, combining with dorsal ligamentous and facet | | hypertrophyto at least moderately narrow the central canal to a greater degree, | | flatteningthe contours of the spinal cord. Moderate to severe right and moderate | | leftforaminal stenosis is more pronounced as well.Vertebral osteophytes again mild to | | moderately narrow the left neural foramen atthe operated C5-6 level, and combine with | | dorsal ligamentous hypertrophy tofairly mildly narrow the central canal as well.Moderate | | disc space narrowing, mild Modic endplate hyperintensity and ageneralized disc | | osteophyte complex persist at C6-7, combining with dorsalligamentous and facet | | hypertrophy to moderately narrow the central canal andleft neural foramen and more | | mildly narrow the right neural foramen to a similardegree.2 mm anterolisthesis and left | | greater than right foraminal disc osteophytecomplexes persist at C7-T1, moderately | | narrowing the left neural foramen andmildly narrowing the right neural foramen to a | | similar degree. Dorsalligamentous hypertrophy combines with a minimal posterior disc | | bulge to againmildly narrow the central canal.Uncovertebral hypertrophy again mild to | | moderately narrows the neural foraminaat T1-2, as visualized on provided sagittal | | images. No significant discpathology or stenosis is visible elsewhere in the imaged | | upper thoracic spine onprovided sagittal images through the region.IMPRESSION -1. | | SIMILAR DEGENERATIVE DISC DISEASE, MILD TO MODERATE CENTRAL CANAL STENOSISAND MODERATE | | TO SEVERE LEFT FORAMINAL STENOSIS AT C3-4 COMPARED WITH MRI OFNOVEMBER 2012.2. | | DEGENERATIVE DISC DISEASE AT C4-5 WITH PROGRESSIVE, AT LEAST MODERATECENTRAL CANAL | | STENOSIS AND MODERATE TO SEVERE FORAMINAL STENOSIS.3. SIMILAR MILD CENTRAL CANAL | | STENOSIS AND MILD TO MODERATE LEFT FORAMINALSTENOSIS AT THE OPERATIVELY FUSED C5-6 | | LEVEL.4. SIMILAR DEGENERATIVE DISC DISEASE AND MODERATE CENTRAL CANAL AND LEFTFORAMINAL | | STENOSIS AT C6-7.5. SIMILAR MILD ANTEROLISTHESIS AND MODERATE LEFT FORAMINAL STENOSIS | | AT C7-T1.6. MILD REVERSAL OF THE CERVICAL LORDOSIS.Dictated and Signed by: Andreas Starr | | Electronically signed: 12/14/2015 4:02 PM | |generalized disc osteophyte complex persist at C6-7, combining with dorsal | |ligamentous and facet hypertrophy to moderately narrow the central canal and | |left neural foramen and more mildly narrow the right neural foramen to a similar | |degree. | | | |2 mm anterolisthesis and left greater than right foraminal disc osteophyte | |complexes persist at C7-T1, moderately narrowing the left neural foramen and | |mildly narrowing the right neural foramen to a similar degree. Dorsal | |ligamentous hypertrophy combines with a minimal posterior disc bulge to again | |mildly narrow the central canal. | | | |Uncovertebral hypertrophy again mild to moderately narrows the neural foramina | |at T1-2, as visualized on provided sagittal images. No significant disc | |pathology or stenosis is visible elsewhere in the imaged upper thoracic spine on | |provided sagittal images through the region. | | | |IMPRESSION - | |1. SIMILAR DEGENERATIVE DISC DISEASE, MILD TO MODERATE CENTRAL CANAL STENOSIS | |AND MODERATE TO SEVERE LEFT FORAMINAL STENOSIS AT C3-4 COMPARED WITH MRI OF | |NOVEMBER 2012. | | | |2. 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 | | | |3. SIMILAR MILD CENTRAL CANAL STENOSIS AND MILD TO MODERATE LEFT FORAMINAL | |STENOSIS AT THE OPERATIVELY FUSED C5-6 LEVEL. | | | |4. SIMILAR DEGENERATIVE DISC DISEASE AND MODERATE CENTRAL CANAL AND LEFT | |FORAMINAL STENOSIS AT C6-7. | | | |5. 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 | | | |6. MILD REVERSAL OF THE CERVICAL LORDOSIS. | | | |Dictated and Signed by: Andreas Starr MD | | Electronically signed: 12/14/2015 4:02 PM | + + + +---------+ + + | Performing | Address | City/State/Zipcode | Phone Number | | Organization | | | | + +---------+ + + | [facility] | | | | + +---------+ + + documented in this encounter Visit Diagnoses + + | Diagnosis | + + | Other spondylosis with radiculopathy, cervicothoracic region | + + documented in this encounter"
--- OUTSIDE RECORDS SUMMARY | ~2019-07-17 | XMS | Encounter Summary ---
Demographics + + + | Address | [address] | | | [place] [address] | + + + | Home Phone | | + + + | Preferred Language | Unknown | + + + | Marital Status | | + + + | Worship Affiliation | Unknown | + + + | Race | Unknown | + + + | Ethnic Group | Unknown | + + + Author + + + | Author | [facility] | | | and [place] | + + + | Organization | [facility] | | | and [place] | + + + | Address | Unknown | + + + | Phone | Unavailable | + + + Support + + + + + | Name | Relationship | Address | Phone | + + + + + | Veronica Anderson | ECON | [place] | | | | | [address] | | + + + + + | Beatrice Paulson | ECON | [address] | | | | | [place] | | | | | [address] | | + + + + + Care Team Providers + +------+ + | Care Mineral Mixer Name | Role | Phone | + +------+ + | Venkata Pettit MD | PCP | | + +------+ + Reason for Referral Evaluate & Treat (Routine) +--------+ + + + + + | Status | Reason | Specialty | Diagnoses / | Referred By | Referred To | | | | | Procedures | Contact | Contact | +--------+ + + + + + | Closed | Specialty | Physical | Diagnoses | Ribera, | | | | Services | Therapy | S/P lumbar | Justen F, | | | | Required | | fusion | MD [address] | | | | | | Lumbar | [address] | | | | | | spinal | [place], | | | | | | stenosis | [place] [address] | | | | | | Spondylolist | Phone: | | | | | | hesis of | [phone] | | | | | | lumbar | [phone] Fax: | | | | | | region | | | | | | | [place] | [phone] | | | | | | stenosis of | | | | | | | lumbosacral | | | | | | | region Hip | | | | | | | pain, | | | | | | | bilateral | | | | | | | Left | | | | | | | shoulder | | | | | | | pain | | | | | | | Statin-induc | | | | | | | ed myositis | | | | | | | S/P | | | | | | | cervical | | | | | | | spinal | | | | | | | fusion | | | | | | | Sacroiliitis | | | | | | | (HCC) | | | +--------+ + + + + + Evaluate & Treat (Routine) +--------+ + + + + + | Status | Reason | Specialty | Diagnoses / | Referred By | Referred To | | | | | Procedures | Contact | Contact | +--------+ + + + + + | Closed | Specialty | Physical | Diagnoses | Mounika, | Stephan, | | | Services | Medicine and | S/P lumbar | Justen F, | Olayinka Duncan MD | | | Required | Rehabilitatio | fusion | MD [address] | [address] | | | | n | Lumbar | [address] | [address] [place] | | | | | spinal | [place], | [place] | | | | | stenosis | [place] [address] | [address] Phone: | | | | | Spondylolist | Phone: | [phone] | | | | | hesis of | [phone] | Fax: | | | | | lumbar | [phone] Fax: | [phone] | | | | | region | | | | | | | [place] | [phone] | | | | | | stenosis of | | | | | | | lumbosacral | | | | | | | region Hip | | | | | | | pain, | | | | | | | bilateral | | | | | | | Left | | | | | | | shoulder | | | | | | | pain | | | | | | | Statin-induc | | | | | | | ed myositis | | | | | | | S/P | | | | | | | cervical | | | | | | | spinal | | | | | | | fusion | | | | | | | Sacroiliitis | | | | | | | ([facility]) | | | +--------+ + + + + + Reason for Visit + + + | Reason | Comments | + + + | Other | Discuss MRI results of the Lumbar spine | + + + | Back Pain | | + + + Encounter Details +--------+---------+ + + + | Date | Type | Department | Care Team | Description | +--------+---------+ + + + | 02/28/ | Office | [facility] | Justen Ribera | S/P lumbar fusion | | 2012 | Visit | NEUROSURGERY [address] | FMD [address] | (Primary Dx); Lumbar | | | | [address] | [place] | spinal stenosis; | | | | [place] | [address] | Spondylolisthesis of | | | | [address] | [phone] | lumbar region; | | | | [phone] | | [place] stenosis | | | | | | of lumbosacral | | | | | | region; Hip pain, | | | | | | bilateral; Left | | | | | | shoulder pain; | | | | | | Statin-induced | | | | | | myositis; S/P | | | | | | cervical spinal | | | | | | fusion; Sacroiliitis | | | | | | (HCC) | +--------+---------+ + + + Social History [...] + + + | Blood Pressure | 127/65 | 02/29/2012 12:00 PM | | | | | PST | | + + + + + | Pulse | 72 | 02/29/2012 12:00 PM | | | | | PST | | + + + + + | Temperature | - | - | | + + + + + | Respiratory Rate | 20 | 02/29/2012 12:00 PM | | | | | PST | | + + + + + | Oxygen Saturation | - | - | | + + + + + | Inhaled Oxygen | - | - | | | Concentration | | | | + + + + + | Weight | 123.1 kg (271 lb 6.4 | 02/29/2012 12:00 PM | | | | oz) | PST | | + + + + + | Height | 174.5 cm (5' 8.7") | 02/29/2012 12:00 PM | | | | | PST | | + + + + + | Body Mass Index | 40.43 | 02/29/2012 12:00 PM | | | | | PST | | + + + + + documented in this encounter Patient Instructions Patient Instructions Justen Ribera MD - 02/29/2012 12:49 PM PSTPlease stay off the statins for a couple of months.Electronically signed by Justen Ribera MD at 3 12:49 PM PST documented in this encounter Progress Notes Justen Ribera MD - 02/29/2012 12:50 PM PSTFormatting of this note might be differen t from the original. Justen Ribera MD [address] [facility], [address] [place], [place] [address] FAX: NEUROSURGERY FOLLOW-UP CHIEF COMPLAINT: Chief Complaint Patient presents with Other Discuss MRI results of the Lumbar spine Back Pain HISTORY OF PRESENT ILLNESS: The patient is a 71 y.o. female that had a L3-4 interlaminar d ecompression with posterior interspinous plating and fusion by me for stenosis around 2-1/2 years ago. She returns and overall is doing fairly well. The patient complains of increas ing weakness in both legs. She describes difficulty with going up steps and a sensation of heaviness in the legs. This is not associated with increased numbness or pain. She does hogan ve some intermittent low back pains particularly noticeable when working out at the gym doin g leg lifts. But overall she is not describe significant back pain. She has an episode of getting down and not being able to get up in early January. This is what prompted her to c ontact our office. She is still working out at the gym 5 times a week using a personal raiza ner and also doing water aerobics. She finds her symptoms are worse in the right leg but al so present on the left. She also describes some left shoulder pains. Her primary care doct or has stopped her Crestor, she does have a history of statin intolerance and myositis. PAST MEDICAL HISTORY: Past Medical History Diagnosis Date Sacroiliitis BACK PAIN, LUMBAR Spinal stenosis Trochanteric bursitis Degenerative disc disease Obesity Hypertension Hypercholesterolemia Hx of spinal fusion Myofascial pain syndrome Paresthesia Carpal tunnel syndrome PAST SURGICAL HISTORY: No past surgical history on file. CURRENT MEDICATIONS: Current Outpatient Prescriptions Medication Sig Dispense Refill escitalopram (LEXAPRO) 10 mg tablet Take 10 mg by mouth Daily. atenolol (TENORMIN) 25 mg tablet Take 25 mg by mouth Daily. Magnesium 250 MG TABS Take 250 mg by mouth Daily. diclofenac (VOLTAREN) 75 mg EC tablet Take 75 mg by mouth Daily. Rosuvastatin Calcium (CRESTOR PO) Take 5 mg by mouth Daily. ALLERGIES: No Known Allergies SOCIAL HISTORY: The patient reports that she has never smoked. She has never used smokeless tobacco. She r eports that she drinks alcohol. She reports that she does not use illicit drugs. FAMILY HISTORY: No family history on file. INTERIM PHYSICAL EXAMINATION: Blood pressure 127/65, pulse 72, resp. rate 20, height 1.745 m (5' 8.7"), weight 123.106 kg (271 lb 6.4 oz). Body mass index is 40.43 kg/(m^2). GENERAL: Kassie Bear is in no acute distress with unlabored respirations. HEENT: HEAD/FACE: Normocephalic and atraumatic. There are no areas of recent trauma. CHEST: Clear to ausculation without crackles or wheeze. HEART: Regular rate and rhythm without murmurs. SPINE: The patient s incisions are healed well. EXTREMITIES: No lower extremity edema. NEUROLOGICAL EXAMINATION: MENTAL STATUS: The patient is awake, alert, and oriented. She follows simple and complex commands MOTOR EXAM: Motor strength is good with the exception of her hip flexors and this is slight ly worse on the right. This is 4+ out of 5 strength. This is diminished from the previous exam. SENSORY EXAM: The sensory examination unchanged from the preoperative exam. She continues to have paresthetic sensations in her feet and some numbness. REFLEXES: Reflexes are unchanged from her preoperative history and physical. RADIOGRAPHIC REVIEW: The patient s postoperative x-rays show stable instrumentation and alignment and were rev iewed with the patient today during the visit. There has been increased arthrodesis since t he patient s last x-ray which was also reviewed for comparison. There is no evidence of a ny instability at any of the joints of the lumbar spine. MRI of the lumbar spine performed with without contrast demonstrates progression of the lum bar spondylolisthesis at the L4-5 level. There is also mild progression of spinal stenosis at the L2-3 level. At the L3-4 level there does not appear to be any significant nerve fora vic compromise. ASSESSMENT: S/P L3-4 interlaminar decompression and posterior spinous plating and fusion: Encounter Diagnoses Name Primary? S/P lumbar fusion Yes Lumbar spinal stenosis Spondylolisthesis of lumbar region [place] stenosis of lumbosacral region Hip pain, bilateral Left shoulder pain Statin-induced myositis S/P cervical spinal fusion Sacroiliitis Past Medical History Diagnosis Date Sacroiliitis BACK PAIN, LUMBAR Spinal stenosis Trochanteric bursitis Degenerative disc disease Obesity Hypertension Hypercholesterolemia Hx of spinal fusion Myofascial pain syndrome Paresthesia Carpal tunnel syndrome PLAN: Overall, the patient is doing fairly well. Unfortunately it's likely she's had a reaction to the statin and this is causing her proximal leg weakness. It is certainly conceivable it s progression of her back disease is also causing some radicular irritation although this do es not appear to classically radicular. I recommend that she give it 2 months without the s tatin and if things are failing to improve then at that time we can reevaluate whether furth er surgical intervention will be necessary. I do recommend that she return to physical therapy. I'm not sure that I would recommend co ntinuing to use a personal injury litigation paralegal. I spent 30 minutes in visit with Kassie Bear today with the majority of time spent coun selling the patient on her recovery and coordinating her future care. I asked Mrs. Bear to contact us if she has no improvement in 2 months. Additionally we will go ahead and refer her to Dr. Rothman for her bilateral hip issues as well as her le ft shoulder pains. ELECTRONICALLY SIGNED BY: Justen Ribera MD, 02/29/2012 12:51 documented in this encounter Plan of Treatment +--------+---------+ + + + | Date | Type | Specialty | Care Team | Description | +--------+---------+ + + + | 10/06/ | Office | Cardiology | Elvin Jamil | | | 2020 | Visit | | MD [address] | | | | | [facility] | | | | | [place] | | | | | | [address] | | | | | | | | +--------+---------+ + + + + + +--------+ + + | Name | Type | Priori | Associated Diagnoses | Order Schedule | | | | ty | | | + + +--------+ + + | Ambulatory referral | Outpatient | Routin | S/P lumbar fusion | 1 Occurrences | | to Physical Medicine | Referral | e | Lumbar spinal | starting 02/29/2012 | | Rehab | | | stenosis | until 02/28/2013 | | | | | Spondylolisthesis of | | | | | | lumbar region | | | | | | Foram[place] stenosis | | | | | | of lumbosacral | | | | | | region Hip pain, | | | | | | bilateral Left | | | | | | shoulder pain | | | | | | Statin-induced | | | | | | myositis S/P | | | | | | cervical spinal | | | | | | fusion Sacroiliitis | | | | | | (HCC) | | + + +--------+ + + | Ambulatory referral | Outpatient | Routin | S/P lumbar fusion | 1 Occurrences | | to Physical Therapy | Referral | e | Lumbar spinal | starting 02/29/2012 | | | | | stenosis | until 02/28/2013 | | | | | Spondylolisthesis of | | | | | | lumbar region | | | | | | Foram[place] stenosis | | | | | | of lumbosacral | | | | | | region Hip pain, | | | | | | bilateral Left | | | | | | shoulder pain | | | | | | Statin-induced | | | | | | myositis S/P | | | | | | cervical spinal | | | | | | fusion Sacroiliitis | | | | | | ([facility]) | | + + +--------+ + + documented as of this encounter Visit Diagnoses + + | Diagnosis | + + | S/P lumbar fusion - Primary Arthrodesis status | + + | Lumbar spinal stenosis Spinal stenosis, lumbar region, without neurogenic | | claudication | + + | Spondylolisthesis of lumbar region Acquired spondylolisthesis | + + | Foram[place] stenosis of lumbosacral region Spinal stenosis, lumbar region, without | | neurogenic claudication | + + | Hip pain, bilateral Pain in joint, pelvic region and thigh | + + | Left shoulder pain Pain in joint, shoulder region | + + | Statin-induced myositis Mylagia and myositis, unspecified | + + | S/P cervical spinal fusion Arthrodesis status | + + | Sacroiliitis (HCC) Sacroiliitis, not elsewhere classified | + + documented in this encounter
--- OUTSIDE RECORDS SUMMARY | ~2019-07-17 | XMS | Encounter Summary ---
Demographics + + + | Address | [address] | | | [place] [address] | + + + | Home Phone | | + + + | Preferred Language | Unknown | + + + | Marital Status | | + + + | Mosque Affiliation | Unknown | + + + | Race | Unknown | + + + | Ethnic Group | Unknown | + + + Author + + + | Author | [facility] | | | and [place] | + + + | Organization | [facility] | | | and [place] | + + + | Address | Unknown | + + + | Phone | Unavailable | + + + Support + + + + + | Name | Relationship | Address | Phone | + + + + + | Veronica Anderson | ECON | [place] | | | | | [address] | | + + + + + | Beatrice Paulson | ECON | [address] | | | | | [place] | | | | | [address] | | + + + + + Care Team Providers + +------+ + | Care Multi Care Technician Name | Role | Phone | + +------+ + PCP | Unavailable | + +------+ + Encounter Details +--------+ + + + + | Date | Type | Department | Care Team | Description | +--------+ + + + + | 05/24/ | Hospital | [facility] | Justen Ribera | | | 2009 - | Encounter | MED CTR GENERIC IP | F, [address] | | | | | CONV DEPT [address] [place], [place] | | | 05/25/ | | [address] [place], | [address] | | | 2009 | | [place] [address] | [phone] | | | | | [phone] | | | +--------+ + + + [...] [place] | | | | | | [address] | | | | | | | | +--------+---------+ + + + documented as of this encounter Visit Diagnoses Not on filedocumented in this encounter"
--- OUTSIDE RECORDS SUMMARY | ~2019-07-17 | XMS | Encounter Summary ---
Demographics + + + | Address | [address] | | | [place] [address] | + + + | Home Phone | | + + + | Preferred Language | Unknown | + + + | Marital Status | | + + + | Mormon Affiliation | Unknown | + + + | Race | Unknown | + + + | Ethnic Group | Unknown | + + + Author + + + | Author | [facility] | | | and [place] | + + + | Organization | [facility] | | | and [place] | + + + | Address | Unknown | + + + | Phone | Unavailable | + + + Support + + + + + | Name | Relationship | Address | Phone | + + + + + | Veronica Anderson | ECON | [place] | | | | | [address] | | + + + + + | Beatrice Paulson | ECON | [address] | | | | | [place] | | | | | [address] | | + + + + + Care Team Providers + +------+ + | Care Physician Aide Name | Role | Phone | + [...] Other | Michael S, | [address] | | | | | spondylosis | MD [address] | [place], | | | | | with | [address] | [place] | | | | | radiculopath | [place], | [address] | | | | | y, | [place] | Phone: | | | | | cervicothora | [address] | [phone] | | | | | cic region | Phone: | Fax: | | | | | Procedures | [phone] | [phone] | | | | | MRI Cervical | Fax: | | | | | | Spine wo | [phone] | | | | | | Contrast [...] Other | Michael S, | [address] | | | | | spondylosis | MD [address] | [place], | | | | | with | [address] | [place] | | | | | radiculopath | [place], | [address] | | | | | y, | [place] | Phone: | | | | | cervicothora | [address] | [phone] | | | | | cic region | Phone: | Fax: | | | | | Procedures | [phone] | [phone] | | | | | MRI Cervical | Fax: | | | | | | Spine wo | [phone] | | | | | | Contrast | | | +--------+--------+ + + + + Encounter Details +--------+ + + + + | Date | Type | Department | Care Team | Description | +--------+ + + + + | 12/13/ | Hospital | [facility] | Michael Will, | Other spondylosis | | 2016 | Encounter | MED CTR MRI [address] | [address] | with radiculopathy, | | | | [address], | [address] [place], [place] | cervicothoracic | | | | [place] [address] | [address] | region | | | | [phone] | [phone] | | | | | | | [...] [address] | | | | | | [facility] | | | | | | [place] | | | | | | [address] | | | | | | | [...]
--- OUTSIDE RECORDS SUMMARY | ~2019-07-17 | XMS | Encounter Summary ---
Demographics + + + | Address | [address] | | | [place] [address] | + + + | Home Phone | | + + + | Preferred Language | Unknown | + + + | Marital Status | Single | + + + | Mormon Affiliation | Unknown | + + + | Race | White | + + + | Ethnic Group | Not or | + + + Author + + + | Author | [facility] | + + + | Organization | [facility] | + + + | Address | Unknown | + + + | Phone | Unavailable | + + + Support + + +---------+ + | Name | Relationship | Address | Phone | + + +---------+ + | Beatrice Paulson | ECON | Unknown | | + + +---------+ + Care Team Providers + +------+ + | Care Pasteurizer Helper Name | Role | Phone | [...] consult. ) | | | | at [facility] | [address] [place], | | | | | Health & Healing | [place] [address] | | | | | [address] | [phone] | | | | | Mailcode: [id number] | | | | | | [facility] | | | | | | and Healing, | | | | | | [facility] | | | | | | [facility], [place] | | | | | | [address] | | | | | | [phone] | | | +--------+ + + + [...]
--- OUTSIDE RECORDS SUMMARY | ~2019-07-17 | XMS | Encounter Summary ---
Demographics + + + | Address | [address] | | | [place] [address] | + + + | Home Phone | | + + + | Preferred Language | Unknown | + + + | Marital Status | | + + + | Denominational Affiliation | Unknown | + + + | Race | Unknown | + + + | Ethnic Group | Unknown | + + + Author + + + | Author | [facility] | | | and [place] | + + + | Organization | [facility] | | | and [place] | + + + | Address | Unknown | + + + | Phone | Unavailable | + + + Support + + + + + | Name | Relationship | Address | Phone | + + + + + | Veronica Anderson | ECON | [place] | | | | | [address] | | + + + + + | Beatrice Paulson | ECON | [address] | | | | | [place] | | | | | [address] | | + + + + + Care Team Providers + +------+ + | Care Draw Press Operator Name | Role | Phone | + +------+ + | Parvez Vail MD | PCP | | + +------+ + Encounter Details +--------+ + + + + | Date | Type | Department | Care Team | Description | +--------+ + + + + | 04/02/ | Telephone | [facility] EP | Nery Rivero | | | 2019 | | CARDIOLOGY FAUSTO Franklin RN | | | | | [address] | | | | | | [place] | | | | | | [address] | | | | | | [phone] | | | +--------+ + + + [...] [address] | | | | | | [facility] | | | | | | [place] | | | | | | [address] | | | | | | | | +--------+---------+ + + + documented as of this encounter Visit Diagnoses Not on filedocumented in this encounter"
--- OUTSIDE RECORDS SUMMARY | ~2019-07-17 | XMS | Encounter Summary ---
Demographics + + + | Address | [address] | | | [place] [address] | + + + | Home Phone | | + + + | Preferred Language | Unknown | + + + | Marital Status | Single | + + + | Pentecostal Affiliation | Unknown | + + + | Race | White | + + + | Ethnic Group | Not or | + + + Author + + + | Author | [facility] | + + + | Organization | [facility] | + + + | Address | Unknown | + + + | Phone | Unavailable | + + + Support + + +---------+ + | Name | Relationship | Address | Phone | + + +---------+ + | Beatrice Paulson | ECON | Unknown | | + + +---------+ + Care Team Providers + +------+ + | Care Director Of Development Name | Role | Phone | + +------+ + | Venkata Pettit MD | PCP | | + +------+ + Encounter Details +--------+ + + + + | Date | Type | Department | Care Team | Description | +--------+ + + + + | 11/10/ | Telephone | Neurology | Hyacinth Noel | | | 2012 | | [facility] | MD [place] [address] | | | | | [facility] | [address], | | | | | and Healing [address] | [place] [address] | | | | | [address] Mailcode: | [phone] | | | | | [address] | | | | | | Health and Healing, | | | | | | [facility] , [address] | | | | | | [place], [place] | | | | | | [address] | | | | | | [phone] | | | +--------+ + + + [...]
--- OUTSIDE RECORDS SUMMARY | ~2019-07-17 | XMS | Encounter Summary ---
Demographics + + + | Address | [address] | | | [place] [address] | + + + | Home Phone | | + + + | Preferred Language | Unknown | + + + | Marital Status | | + + + | Catholic Affiliation | Unknown | + + + | Race | Unknown | + + + | Ethnic Group | Unknown | + + + Author + + + | Author | [facility] | | | and [place] | + + + | Organization | [facility] | | | and [place] | + + + | Address | Unknown | + + + | Phone | Unavailable | + + + Support + + + + + | Name | Relationship | Address | Phone | + + + + + | Veronica Anderson | ECON | [place] | | | | | [address] | | + + + + + | Beatrice Paulson | ECON | [address] | | | | | [place] | | | | | [address] | | + + + + + Care Team Providers + +------+ + | Care Clerical Adjudicator Name | Role | Phone | + +------+ + | Parvez Vail MD | PCP | | + +------+ + Encounter Details +--------+ + + + + | Date | Type | Department | Care Team | Description | +--------+ + + + + | 05/07/ | Hospital | [facility] | Olayinka Rothman | Cervical | | 2019 | Encounter | MED CTR XRAY [address] | [address] | radiculopathy | | | | [place] | [address] [place] | | | | | [place] [address] | [address] | | | | | [phone] | | | | | | | [employer] Worker, [facility] | | | | | | [place] | | +--------+ + + + + [...] +---------+ + + | Blood Pressure | 135/94 | 05/07/2018 5:20 PM | | | | | PDT | | + +---------+ + + | Pulse | 101 | 05/07/2018 5:20 PM | | | | | PDT | | + +---------+ + + | [...] + + + +---------+ + + | SHINGRIX 50 | Inject 1 Application | | 0 | 02/01/20 | | | MCG/0.5ML vaccine | as directed once. | | | 18 | 9 | | injection | | | | | | + [...] [address] | | | | | | [address] | | | | | | [place] | | | | | | [address] | | | | | | | | +--------+---------+ + + + documented as of this encounter Procedures + +--------+ + + + | Procedure Name | Priori | Date/Time | Associated Diagnosis | Comments | | | ty | | | | + +--------+ + + + | FL EPIDURAL STEROID | Routin | 05/07/2018 | Cervical | Results for this | | INJ CERVICAL | e | 5:20 PM | radiculopathy | procedure are in the | | THORACIC | | PDT | | results section. | | INTERLAMINAR [...] HISTORY: ICD-10 CODE M54.12 CERVICAL RADICULOPATHY Kassie Bear | | | presents to the fluoroscopy [...] | | | + +--------+ +-------+------+------+ | dexamethasone (PF) 10 mg/mL | Given | 05/08/19 | 10 mg | | | | injection 10 mg 10 mg, Other, | | 19 5:30 | | | | | ONCE, [facility] 05/07/18 at 1715, For 1 | | PM PDT | | | | | dose, When ordered IV push: | | | | | | | Dilute to 10-20 mL with NS and | | | | | | | give slowly over 1-2 minutes., | | | | | | + +--------+ +-------+------+------+ +---+---+ | | | +---+---+ + +-------+ +-------+---+---+ | iohexol (OMNIPAQUE 300) 300 | Given | 05/08/19 | 4 mLs | | | | mg/mL injection 4 mL 4 mL, | | 19 5:25 | | | | | Other, ONCE, [facility] 05/07/18 at 1715, | | PM PDT | | | | | For 1 dose | | | | | | + +-------+ +-------+---+---+ +---+---+ | | | +---+---+ + +-------+ +-------+---+ + | lidocaine buffered 0.9% | Given | 05/08/19 | 3 mLs | | Other | | injection 3 mL 3 mL, | | 19 5:20 | | | (Comment | | Intradermal, ONCE, 05/07/18 at | | PM PDT | | | ) | | 1715, For 1 dose | | | | | | + +-------+ +-------+---+ + +---+---+ | | | +---+---+ documented in this encounter"
--- OUTSIDE RECORDS SUMMARY | ~2019-07-17 | XMS | Encounter Summary ---
Demographics + + + | Address | [address] | | | [place] [address] | + + + | Home Phone | | + + + | Preferred Language | Unknown | + + + | Marital Status | | + + + | Caodaism Affiliation | Unknown | + + + | Race | Unknown | + + + | Ethnic Group | Unknown | + + + Author + + + | Author | [facility] | | | and [place] | + + + | Organization | [facility] | | | and [place] | + + + | Address | Unknown | + + + | Phone | Unavailable | + + + Support + + + + + | Name | Relationship | Address | Phone | + + + + + | Veronica Anderson | ECON | [place] | | | | | [address] | | + + + + + | Beatrice Paulson | ECON | [address] | | | | | [place] | | | | | [address] | | + + + + + Care Team Providers + +------+ + | Care Research Assoc Name | Role | Phone | + [...] + + | 04/30/ | Office | [facility] | Olayinka Rothman | Cervical | | 2019 | Visit | PH[address]SIATRY [address] | MD Perla [address] | radiculopathy | | | | [address] | [place] | (Primary Dx); | | | | [place] | [address] | Chronic neck pain; | | | | [address] | | S/P cervical spinal | | | | [phone] | | fusion; Myofascial | | | [...] stretches and well as see her physical security manager apist periodically but not for quite some [...] has no apparent deficits with short or penitentiary memory. She has appropriate fund of knowledge [...] [address] | | | | | | [facility] | | | | | | [place] | | | | | | [address] | | | | | | | [...]
--- OUTSIDE RECORDS SUMMARY | ~2019-07-17 | XMS | Encounter Summary ---
Demographics + + + | Address | [address] | | | [place] [address] | + + + | Home Phone | | + + + | Preferred Language | Unknown | + + + | Marital Status | | + + + | Advent Affiliation | Unknown | + + + | Race | Unknown | + + + | Ethnic Group | Unknown | + + + Author + + + | Author | [facility] | | | and [place] | + + + | Organization | [facility] | | | and [place] | + + + | Address | Unknown | + + + | Phone | Unavailable | + + + Support + + + + + | Name | Relationship | Address | Phone | + + + + + | Veronica Anderson | ECON | [place] | | | | | [address] | | + + + + + | Beatrice Paulson | ECON | [address] | | | | | [place] | | | | | [address] | | + + + + + Care Team Providers + +------+ + | Care Production Grip Name | Role | Phone | + [...] | | | | . | | [place] [address] | | | | | | | Phone: | | | | | | | [phone] | | | | | | | Fax: | | | | | | | [phone] | +--------+--------+ + + + + Encounter Details +--------+---------+ + + + | Date | Type | Department | Care Team | Description | +--------+---------+ + + + | 02/20/ | Surgery | [facility] | Elvin Jamil | CV EP CARDIOVERSION | | 2019 | | CENTER CV INTRA OP | MD [address] | | | | | [address] | [facility] | | | | | [place], [place] | [place], [place] | | | | | [address] | [address] | | | | | [phone] | | | +--------+---------+ + + + [...] + + + | Blood Pressure | 116/57 | 02/20/2019 9:08 AM | | | | | PST | | + + + + + | Pulse | 55 | 02/20/2019 9:29 AM | | | | | PST | | + + + + + | Temperature | 36.6 C (97.9 F) | 02/20/2019 9:29 AM | | | | | PST | | + + + + + | Respiratory Rate | 16 | 02/20/2019 7:50 AM | | | | | PST | | + + + + + | Oxygen Saturation | 99% | 02/20/2019 9:08 AM | | | | | PST | | + + + + + | Inhaled Oxygen | - | - | | | Concentration | | | | + + + + + | Weight | 128.5 kg (283 lb 4.7 | 02/20/2019 7:50 AM | | | | oz) | PST | | + + + + + | Height | 172.7 cm (5' 8") | 02/20/2019 7:50 AM | | | | | PST | | + + + + + | Body Mass Index | 43.07 | 02/20/2019 7:50 AM | | | | | PST | | + + + + + documented in this encounter Discharge Instructions Instructions Jacy Neves RN - 02/20/2019After Your Surgery You ve just had surgery. During surgery, you received medication called anesthesia to jarred p you comfortable and pain-free. After surgery, you may experience some pain or nausea. This [...] skin turning blue, or fainting Call 911. POST PROCEDURE INSTRUCTIONS FOR CARDIOVERSION Activity/Safety: Because of the effects of sedation or anesthesia, we advise you to refrain from the followi ng activities for at least 12 to 16 hours: -Do NOT drive a car or operate machinery. Your reflexes and coordination are altered. Have standby assistance on stairways. -Do not return to work. -Do not consume alcohol. -Do not operate appliances at home (stove, iron, lawnmower). -Postpone signing any important papers or making any important decisions. -A responsible person must stay with the patient for 12 hours post procedure. Comfort: -If you had a cardioversion, your chest or back may get red and/or develop a burning sens ation similar to a sunburn. Apply aloe vera lotion or topical spray (like solarcaine) to co ol and protect the area. Take Tylenol (acetaminophen) as directed for pain. Call your doctor, or go to nearest Emergency Department for any of the following symptoms: -Unrelieved pain, unusual abdominal or chest pain, or difficulty swallowing -Vomiting blood -Irregular heart beat. If you have any questions, you may call you doctor, or speak with the Diagnostic Imaging nu rse at . documented in this encounter Medications at Time [...] documented as of this encounter Progress Notes Edelmira Mckeon RN - 02/20/2019 9:31 AM PSTDischarge instructions went over with prudence mcpherson and friend all questions answered no prescriptions given at this time. Electronically sign ed by Edelmira Mckeon RN at 02/20/2019 9:32 AM PSTdocumented in this encounter Plan of Treatment +--------+---------+ + + + | Date | Type | Specialty | Care Team | Description | +--------+---------+ + + + | 10/06/ | Office | Cardiology | Elvin Jamil | | 2019 | Visit | | MD [address] | | | | | | [facility] | | | | | | [place] | | | | | | [id number] | | | | | | | | +--------+---------+ + + + documented as of this encounter Procedures + +--------+ + + + | Procedure Name | Priori | Date/Time | Associated Diagnosis | Comments | | | ty | | | | + +--------+ + + + | CV EP PROCEDURE | Routin | 02/20/2019 | Persistent atrial | Results for this | | | e | 8:59 AM | fibrillation (HCC) | procedure are in the | | | | PST | | results section. | + +--------+ + + + | ECG 12 LEAD | JANIE | 02/20/2019 | | Results for this | | | | 8:41 AM | | procedure are in the | | | | PST | | results section. | + +--------+ + + + | PROTIME INR | STAT | 02/20/2019 | | Results for this | | | | 7:47 AM | | procedure are in the | | | | PST | | results section. | + +--------+ + + + | CBC WITH | STAT | 02/20/2019 | | Results for this | | DIFFERENTIAL | | 7:47 AM | | procedure are in the | | | | PST | | results section. | + +--------+ + + + | BASIC METABOLIC | STAT | 02/20/2019 | | Results for this | | PANEL | | 7:47 AM | | procedure are in the | | | | PST | | results section. | + +--------+ + + + | ECG 12 LEAD | JANIE | 02/20/2019 | | Results for this | | | | 7:45 AM | | procedure are in the | | | | PST | | results section. | + +--------+ + + + documented in this encounter Results CV EP PROCEDURE (02/20/2019 8:59 AM PST) + + | Specimen | + + | | + + + + + | Narrative | Performed At | + + + | See dictated | | | OP Report for details. | | + + + ECG 12 lead (02/20/2019 8:41 AM PST) + + + + + [...] + + + + | P-R | 250 | ms | [facility] | | [...] + + + + | Q-T | 483 | ms | [facility] | | | INTERVAL | | | | | | (CORRECTED) | | | | | + + + + + + | P WAVE AXIS | 43 | degrees | [facility] | | + + + + + + | QRS AXIS | 28 | degrees | [facility] | | + + + + + + | T AXIS | 16 | degrees | [facility] | | + + + + + + | INTERPRETAT | Sinus rhythm with 1st | | [facility] | | | ION TEXT | degree A-V blockPossible | | | | | | Left atrial | | | | | | enlargementBorderline | | | | | | ECGWhen compared with | | | | | | ECG of 20-FEB-2019 | | | | | | 07:45,Sinus rhythm has | | | | | | replaced Atrial | | | | | | flutterNonspecific T | | | | | | wave abnormality now | | | | | | evident in Inferior | | | | | | leadsConfirmed by Hashmariana | | | | | | Shad GILBERT ([id number]) on | | | | | | 02/23/2019 6:58:07 PM | | | | + + [...] | | | + +---------+ + + Protime INR (02/20/2019 7:47 AM PST) + + + + + + | Component | Value | Ref Range | Performed | Pathologist | | | | | At | Signature | + + + + + + | INR | 2.4Comment: REFERENCE | | [facility] | | | [...] | | | | | performed at [facility];[address] | | | | | | [address];[place] | | | | | | [address] | | | | + + + + + + + + | Specimen | + + | Blood | + + + + + + + | Performing | Address | City/State/Zipcode | Phone Number | | Organization | | | | + + + + + | [facility] | [address] | [place] [address] | [phone] | + + + + + CBC with Differential (02/20/2019 7:47 AM PST) + + + + + + | Component | Value | Ref Range | Performed | Pathologist | | | | | At | Signature | + + + + + + | WBC | 6.72 | 3.80 - 11.00 | [facility] | | | | | K/uL | LABORATORY | | + + + + + + | RBC | 5.17 (H) | 3.70 - 5.10 | [facility] | | | | | M/uL | LABORATORY | | + + + + + + | Hemoglobin | 16.0 (H) | 11.3 - 15.5 | [facility] | | | | | g/dL | LABORATORY | | + + + + + + | Hematocrit | 47.6 (H) | 34.0 - 46.0 % | [facility] | | | | | | LABORATORY | | + + + + + + | MCV | 92.0 | 80.0 - 100.0 fl | [facility] [...] + + + + | RDW-SD | 47.7 | 37 - 53 fl | [facility] | | | | | | LABORATORY | | + + + + + + | Platelet | 246 | 150 - 400 K/uL | [facility] | | | Count | | | LABORATORY | | + + + + + + | MPV | 9.2 | fl | [facility] | | | | | | LABORATORY | | + + + + + + | Diff Type | AUTOMATED | | [facility] | | | | | | LABORATORY | | + + + + + + | % | 64.87 | % | [facility] | | | Neutrophils | | | LABORATORY | | + + + + + + | % | 22.45 | % | [facility] | | | Lymphocytes | | | LABORATORY | | + + + + + + | Monocyte % | 8.55 | % | [facility] | | | | | | LABORATORY | | + + + + + + | Eosinophils | 3.30 | % | [facility] | | | % | | | LABORATORY | | + + + + + + | Basophils % | 0.83 | % | [facility] | | | | | | LABORATORY | | + + + + + + | Neutrophils | 4.36 | 1.90 - 7.40 | [facility] | | | , Absolute | | K/uL | LABORATORY | | + + + + + + | Absolute | 1.51 | 1.00 - 3.90 | [facility] | | | Lymphocytes | | K/uL | LABORATORY | | + + + + + + | Absolute | 0.57 | 0.00 - 0.80 | [facility] | | | Monocytes | | K/uL | LABORATORY | | + + + + + + | Eosinophils | 0.22 | 0.00 - 0.50 | [facility] | | | , Absolute | | K/uL | LABORATORY | | + + + + + + | Basophils, | 0.06Comment: Testing | 0.00 - 0.10 | [facility] | | | Absolute | performed at [facility];[address] | K/uL | LABORATORY | | | | [address];[place], [place] | | | | | | [address] | | | | + + + + + + + + | Specimen | + + | Blood | + + + + + + + | Performing | Address | City/State/Zipcode | Phone Number | | Organization | | | | + + + + + | [facility] | [address] | [place] [address] | [phone] | + + + + + Basic Metabolic Panel (02/20/2019 7:47 AM PST) + + + + + + | Component | Value | Ref Range | Performed | Pathologist | | | | | At | Signature | + + + + + + | Na | 141 | 135 - 145 | [facility] | [...] + + + + | Glucose | 107 (H) | 65 - 99 mg/dL | [facility] | | | | | | LABORATORY | | + + + + + + | BUN | 15 | 8 - 25 mg/dL | [facility] [...] + + + + | Calcium | 9.5 | 8.5 - 10.5 | [facility] | [...] | | | | | performed at [facility];[address] | | | | | | [address];[place], [place] | | | | | | [address] | | | | + + + + + + + + | Specimen | + + | Blood | + + + + + + + | Performing | Address | City/State/Zipcode | Phone Number | | Organization | | | | + + + + + | [facility] | [address] | [place] [address] | [phone] | + + + + + ECG 12 lead (02/20/2019 7:45 AM PST) + + + + + + | Component | Value | Ref Range | Performed | Pathologist | | | | | At | Signature | + + + + + + | VENTRICULAR | 77 | BPM | [facility] | | | RATE EKG | | | | | + + + + + + | ATRIAL RATE | 326 | BPM | [facility] | | + + + + + + | QRS | 102 | ms | [facility] | | | DURATION | | | | | + + + + + + | Q-T | 428 | ms | [facility] | | | INTERVAL | | | | | + + + + + + | Q-T | 484 | ms | [facility] | | | INTERVAL | | | | | | (CORRECTED) | | | | | + + + + + + | QRS AXIS | 16 | degrees | [facility] | | + + + + + + | T AXIS | 55 | degrees | [facility] | | + + + + + + | INTERPRETAT | Atrial flutter with | | [facility] | | | ION TEXT | variable A-V | | | | | | blockNonspecific ST | | | | | | abnormalityAbnormal | | | | | | ECGWhen compared with | | | | | | ECG of 18-FEB-2019 | | | | | | 15:48,Previous ECG has | | | | | | undetermined rhythm, | | | | | | needs reviewConfirmed by | | | | | | Shad Ramos MD | | | | | | ([id number]) on 02/23/2019 | | | | | | 6:57:57 PM | | | | + + [...] documented in this encounter Administered Medications + +---------+ +------+------+------+ | Medication Order | MAR | Action | Dose | Rate | Site | | | Action | Date | | | | + +---------+ +------+------+------+ | sodium chloride 0.9% (NS) | New Bag | 02/20/19 | | | | | infusion at 10 mL/hr, | | 20 8:33 | | | | | Intravenous, CONTINUOUS, Starting | | AM PST | | | | | 02/20/19 at 0800, Pre-op | | | | | | + +---------+ +------+------+------+ +---+---+ | | | +---+---+ documented in this encounter
--- OUTSIDE RECORDS SUMMARY | ~2019-07-17 | XMS | Encounter Summary ---
Demographics + + + | Address | [address] | | | [place] [address] | + + + | Home Phone | | + + + | Preferred Language | Unknown | + + + | Marital Status | | + + + | Yarsani Affiliation | Unknown | + + + [...] [place] | | | | | [address] | | + + + + + | Beatrice Paulson | ECON | [address] | | | | | [place] | | | | | [address] | | + + + + + Care Team Providers + +------+ + | Care Secondary School Special Ed Teacher Name | Role | Phone | + +------+ + | Venkata Pettit MD | PCP | | + +------+ + Reason for Visit + + + | Reason | Comments | + + + | Appointment | | + + + Encounter Details +--------+ + + + + | Date | Type | Department | Care Team | Description | +--------+ + + + + | 03/05/ | Telephone | [facility] | Olayinka Rothman | Appointment | | 2012 | | PHYSIATRY [address] | [address] | | | | | [address] | [address] [place], [place] | | | | | [place], [place] | [address] | | | | | [address] | | | | | | [phone] | | | +--------+ + + + [...] [place] | | | | | | [address] | | | | | | | | +--------+---------+ + + + documented as of this encounter Visit Diagnoses Not on filedocumented in this encounter"
--- OUTSIDE RECORDS SUMMARY | ~2019-07-17 | XMS | Encounter Summary ---
Demographics + + + | Address | [address] | | | [place] [address] | + + + | Home Phone | | + + + | Preferred Language | Unknown | + + + | Marital Status | | + + + | Yazdanism Affiliation | Unknown | + + + | Race | Unknown | + + + | Ethnic Group | Unknown | + + + Author + + + | Author | [facility] | | | and [place] | + + + | Organization | [facility] | | | and [place] | + + + | Address | Unknown | + + + | Phone | Unavailable | + + + Support + + + + + | Name | Relationship | Address | Phone | + + + + + | Veronica Anderson | ECON | [place] | | | | | [address] | | + + + + + | Beatrice Paulson | ECON | [address] | | | | | [place] | | | | | [address] | | + + + + + Care Team Providers + +------+ + | Care Sports Betting Manager Name | Role | Phone | + +------+ + | Venkata Pettit MD | PCP | | + +------+ + Encounter Details +--------+ + + + + | Date | Type | Department | Care Team | Description | +--------+ + + + + | 12/01/ | Abstract | [facility] | Wilton Smith, | | | 2012 | | NEUROSURGERY [address] | DO [address] | | | | | [address] | [address] [place], [place] | | | | | [place], [place] | [address] | | | | | [address] | | | | | | [phone] | | | +--------+ + + + [...] [address] | | | | | | [facility] | | | | | | [place] | | | | | | [address] | | | | | | | | +--------+---------+ + + + documented as of this encounter Visit Diagnoses Not on filedocumented in this encounter"
--- OUTSIDE RECORDS SUMMARY | ~2019-07-17 | XMS | Encounter Summary ---
Demographics + + + | Address | [address] | | | [place] [address] | + + + | Home Phone | | + + + | Preferred Language | Unknown | + + + | Marital Status | | + + + | Nondenominational Affiliation | Unknown | + + + | Race | Unknown | + + + | Ethnic Group | Unknown | + + + Author + + + | Author | [facility] | | | and [place] | + + + | Organization | [facility] | | | and [place] | + + + | Address | Unknown | + + + | Phone | Unavailable | + + + Support + + + + + | Name | Relationship | Address | Phone | + + + + + | Veronica Anderson | ECON | [place] | | | | | [address] | | + + + + + | Beatrice Paulson | ECON | [address] | | | | | [place] | | | | | [address] | | + + + + + Care Team Providers + +------+ + | Care Division Chief Name | Role | Phone | + [...] Closed | | Radiology | Diagnoses | Luis, | [facility] | | | | | Muscle | Wilton Alarcon DO | [address] | | | | | spasticity | [address] | [place], | | | | | Lumbago | [address] | [place] | | | | | Lumbar | [place] | [address] | | | | | spondylosis | [address] | Phone: | | | | | Lumbar | Phone: | [phone] | | | | | canal | [phone] | Fax: | | | | | stenosis | Fax: | [phone] | | | | | Weakness of | [phone] | | | | | | both legs | | | | | | | Spondylolist | | | | | | | hesis of | | | | | | | lumbar | | | | | | | region | | | | | | | Procedures | | | | | | | MRI Thoracic | | | | | | | Spine wo | | | | | | | Contrast | | | +--------+--------+ + + + + Reason for Visit + + + | Reason | Comments | + + + | New Patient | Back Pain | + + + | Extremity Weakness | Bilateral | + + + Evaluate & Treat (Routine) +--------+--------+ + + + + | Status | Reason | Specialty | Diagnoses / | Referred By | Referred To | | | | | Procedures | Contact | Contact | +--------+--------+ + + + + | Closed | | Neurosurgery | Diagnoses | Wilver, | Luis, | | | | | Cervical | Venkata | Wilton Alarcon DO | | | | | stenosis of | MD Mike | [address] | | | | | spine | [address] | | | | | Lumbar | [place] | [place] | | | | | stenosis | [address] | [address] Phone: | | | | | Procedures | Javed, | [phone] | | | | | [place] OFFICE | [place] | Fax: | | | | | CONSULTATION | [address] | [phone] | | | | | NEW/ESTAB | Phone: | | | | | | PATIENT 62 | [phone] | | | | | | MIN | Fax: | | | | | | | [phone] | | +--------+--------+ + + + + Encounter Details +--------+---------+ + + + | Date | Type | Department | Care Team | Description | +--------+---------+ + + + | 12/01/ | Office | [facility] | Wilton Smith, | Muscle spasticity | | 2012 | Visit | NEUROSURGERY [address] | DO [address] | (Primary Dx); | | | | [address] | [address] [place], [place] | Lumbago; Lumbar | | | | [place], [place] | [phone] | spondylosis; Lumbar | | | | [address] | | canal stenosis; | | | | [phone] | | Weakness of both | | | | | | legs; | | | | | | Spondylolisthesis of | | | | | | lumbar region | +--------+---------+ + + + Social History [...] + + + | Blood Pressure | 122/64 | 12/01/2012 2:03 PM | | | | | PDT | | + + + + + | Pulse | 72 | 12/01/2012 2:03 PM | | | | | PDT | | + + + + + | Temperature | - | - | | + + + + + | Respiratory Rate | 18 | 12/01/2012 2:03 PM | | | | | PDT | | + + + + + | Oxygen Saturation | - | - | | + + + + + | Inhaled Oxygen | - | - | | | Concentration | | | | + + + + + | Weight | 120.7 kg (266 lb) | 12/01/2012 2:03 PM | | | | | PDT | | + + + + + | Height | 172.7 cm (5' 8") | 12/01/2012 2:03 PM | | | | | PDT | | + + + + + | Body Mass Index | 40.45 | 12/01/2012 2:03 PM | | | | | PDT | | + + + + + documented in this encounter Patient Instructions Patient Instructions Wilton Smith DO - 12/01/2012 3:07 PM PDTPlease undergo the thorac ic MRI. Please follow-up with your primary care physician for preoperative clearance. Please present for surgery when scheduled. documented in this encounter Progress Notes Wilton Smith DO - 12/01/2012 3:08 PM PDTFormatting of this note might be different fro m the original. Wilton Smith DO [address] [facility], [address] [place], [place] [id number] FAX: NEUROSURGERY HISTORY AND PHYSICAL EXAMINATION CHIEF COMPLAINT: Chief Complaint Patient presents with New Patient Back Pain Extremity Weakness Bilateral HISTORY OF PRESENT ILLNESS: The patient is a 72 y.o. female with the complaint of back efra t began 4 years ago. The symptoms began insidiously. Since that time the patient feel her pain has been worsening. She rates the pain as 8 on scale of 1-10. She describes the pain as a aching feeling. The patient also describes leg symptoms that occur on both sides. The leg symptoms account for greater than or equal to 50% of her symptoms. The leg symptoms are weakness and the sy mptoms are diffuse in both legs. The patient also describes difficulty to coordinate her wa lking. This has been over the last ten months. The patient does not report any change in anurag wel or bladder function recently. She had been doing physical therapy, but the therapist eirn robbins like she is not making any more progress. She noticed that this started after bending ov er to pick something up. She is noticing that it is progressively harder to walk up stairs. She did have an L3-[address] Ribera last year. It helped the symptoms for a while, but they returned a few months after. Her symptoms improve with rest. Her symptoms worsen with activity, physical therapy.. Her has tried pain medications, physical therapy, lumbar laminectomy. PAST MEDICAL HISTORY: Past Medical History Diagnosis Date Sacroiliitis BACK PAIN, LUMBAR Spinal stenosis Trochanteric bursitis Degenerative disc disease Obesity Hypertension Hypercholesterolemia Hx of spinal fusion Myofascial pain syndrome Paresthesia Carpal tunnel syndrome PAST SURGICAL HISTORY: Past Surgical History Procedure Date Gallbladder surgery 12/18/2001 Lumbar spinal stenosis 05/24/2009 Neck surgery 10/10/2009 Cataract surgery 10/29/2011(left eye, Right eye 01/07/12 CURRENT MEDICATIONS: Current Outpatient Prescriptions on File Prior to Visit Medication Status Sig Dispense Refill Magnesium 250 MG TABS Active Take 250 mg by mouth Daily. ALLERGIES: Allergies Allergen Reactions Pregabalin SOCIAL HISTORY: The patient reports that she has never smoked. She has never used smokeless tobacco. She r eports that she drinks alcohol. She reports that she does not use illicit drugs. FAMILY HISTORY: Family History Problem Relation Age of Onset Diabetes Maternal Grandmother REVIEW OF SYSTEMS GENERALLY: No fever, no night sweats, no anemia, no fatigue, no recent profound weight rivas ges. EYES: Positive for eye problems, no use of corrective lenses, no eye injury, no double visi on, no blindness. EARS, NOSE, AND THROAT: No changes in taste or smell, no hearing difficulty, no ringing in the ears, no ear drainage, no dizziness, no voice changes, no difficulty swallowing, no sign ificant snoring, no sleep apnea, no sinus problems, no major dental work. NEUROLOGICALLY: Please see the review of systems discussed above in the history of present illness. In addition, the patient has numbness/pain of legs, weakness, change in walk, pain in back. PSYCHIATRIC: No depression, no sleep disorders, no anxiety, no bipolar disorder, no psychot ic episodes. CARDIOVASCULAR: No heart attacks, no heart murmur, no heart fluttering, no chest pain, no a nkle swelling. LUNG DISEASE: No shortness of breath, no cough, no tuberculosis, no bloody cough, no asthma , no emphysema/COPD. GASTROINTESTINAL: No bowel disease, no nausea or vomiting, no rectal bleeding, no constipat ion, no stool incontinence, no liver disease, positive for gallbladder disease, no abdominal pain, no ulcers. KIDNEY DISEASE: No urinary frequency, no painful or difficult urination, no incontinence. ENDOCRINE: No diabetes, no thyroid disease, no osteopenia or osteoporosis, no breast draina ge. SKIN: No breast lumps, no skin changes, no rashes, no itches. HEMATOLOGIC/LYMPHATIC: No enlarged lymph nodes, no easy or unusual bleeding, no personal hi story of cancer. RHEUMATOLOGIC: No joint arthritis, no rheumatoid arthritis. PHYSICAL EXAMINATION: Blood pressure 122/64, pulse 72, resp. rate 18, height 1.727 m (5' 8"), weight 120.657 kg ( 266 lb). Body mass index is 40.45 kg/(m^2). GENERAL: Kassie Cummins is in no acute distress with unlabored respirations. The patient does not appear uncomfortable throughout the exam today. HEENT: HEAD/FACE: EYES: EARS: NASOPHARNYX: OROPHARNYX: Normocephalic and atraumatic. There are no areas of recent trauma. Normal sclerae without icterus. No drainage or tenderness. Clear without drainage. Clear without erythema. NECK (ANTERIOR): Supple and without palpable masses. CHEST: Clear to ausculation without crackles or wheeze. HEART: Regular rate and rhythm without murmurs. ABDOMEN: Soft, non-tender, non-distended, and without palpable masses. The patient is obe se. SPINE: There is no tenderness in the midline of the cervical or thoracic spine. There is n o major palpable deformity of the spine. The lumbar spine shows there is tenderness in the midline of the L5 levels. To palpation, there is signficant bilateral myofascial tenderness. EXTREMITIES: No cyanosis, clubbing, or edema. Distal pulses are palpable. NEUROLOGICAL EXAM: MENTAL STATUS: The patient is awake, alert, and oriented. She follows simple and complex commands. She speech is fluent, her comprehends speech well, and her repeats well. She has no apparent deficits with short or watcher automat long goods memory. CRANIAL NERVES: II: Acuity is intact. Caballero are full to confrontation. III, IV, : The pupils are reactive. Extraocular movements are intact. No ptosis is note d. V: Facial sensation is intact and symmetric. VII: Facial movements are symmetric. VIII: Hearing is intact bilaterally. IX, X: The uvula and palate move appropriately. XI: Shrug is equal bilaterally. XII: Tongue protrusion is midline. MOTOR EXAM: (5 IS NORMAL) * Indicates pain limited MUSCLE/ MOVEMENT: RIGHT LEFT Deltoids 5 5 Biceps 5 5 Triceps 5 5 Wrist Flexion 5 5 Wrist Extension 5 5 Median Intrinsics 5 5 Ulnar Intrinsics 5 5 Customer Management Specialist Strength 5 5 Hip Flexion 4 4 Hip Extension 4 4 Knee Flexion 4* 4* Knee Extension 4* 4* Dorsiflexion 4 4 Extensor Hallicus Longus 4 4 Plantarflexion 4 4 SENSORY EXAM: Sensory exam shows diminished sensation bilateral feel circumferentially and pain to touch bilateral calves circumferentially. REFLEXES: (2 OR 2+ IS NORMAL) REFLEX: RIGHT LEFT BICEPS 2+ 2+ BRACHIORADIALIS 2+ 2+ TRICEPS 2+ 2+ PATELLAR 3+ 3+ ACHILLES 3+ 3+ CUMMINS'S ABSENT ABSENT PLANTAR DOWNGOING DOWNGOING GAIT: Gait is unsteady and wide-based. She can ambulate flat and on toes, but with great difficul ty. She can not ambulate on her heels. PERIPHERAL NERVE/MISC: Tinel is negative at the wrists and elbows bilaterally. Phalen is negative. Straight leg raise is positive bilaterally. Elvin's test of the hips is positive bilaterally. RADIOGRAPHIC REVIEW: The patient's imaging was reviewed in detail with the patient today during the visit. The MRI from 11/17/12 of the lumbar spine shows diffuse spondylosis with spondylolisthesis of L4- 5. There is facet hypertrophy and effusion from L1-L5. There is canal stenosis, most signifi cant at L2-3 and L4-5. There is spondylolisthesis L4-5 and postoperative changes L3-4. There is dynamic instability at L4-5 with flexion/extension. ASSESSMENT: NEUROSURGICAL DIAGNOSES: Encounter Diagnoses Name Primary? Muscle spasticity Yes Lumbago Lumbar spondylosis Lumbar canal stenosis Weakness of both legs Spondylolisthesis of lumbar region GENERAL DIAGNOSES: Past Medical History Diagnosis Date Sacroiliitis BACK PAIN, LUMBAR Spinal stenosis Trochanteric bursitis Degenerative disc disease Obesity Hypertension Hypercholesterolemia Hx of spinal fusion Myofascial pain syndrome Paresthesia Carpal tunnel syndrome PLAN: It was a pleasure meeting and evaluating this patient today, and I greatly appreciate the r solo. The patient has low back pain with significant lumbar spondylosis and spondylolist hesis this is likely contributing to her lumbago. I am more concerned about her lower extrem ity weakness and spasticity that has been present for about 10 months. I had a lengthy discussion with the patient about her options for care including surgical a nd non-surgical options. At this time I would like to further workup the patients weakness and spasticity. It seems like an upper motor neuron phenomenon; we recently imaged the cervi césar spine, so I would like to image the thoracic spine today. If that is normal, then I woul d feel comfortable proceeding with a lumbar fusion from L1-L5. The patient would like to pro ceed with this plan She will undergo the thoracic MRI today and then plan for TLIF L1-L5. She will follow-up [facility] Dr. Pettit for preoperative clearance and optimization prior to presenting for surgery. I spent 1.5 hours in visit with Kassie Cummins today with the majority of time spent couns elling the patient on her diagnosis, options for her care, and coordinating her care. ELECTRONICALLY SIGNED BY: Wilton Smith DO, 12/01/2012 15:26 tevensJoana S - 12/01/2012 2:00 PM PDTREV IEW OF SYSTEMS GENERALLY: No fever, no night sweats, no anemia, no fatigue, no recent profound weight ch anges. EYES: Positive for eye problems, no use of corrective lenses, no eye injury, no double vis ion, no blindness. EARS, NOSE, AND THROAT: No changes in taste or smell, no hearing difficulty, no ringing in the ears, no ear drainage, no dizziness, no voice changes, no difficulty swallowing, no sig nificant snoring, no sleep apnea, no sinus problems, no major dental work. NEUROLOGICALLY: Please see the review of systems discussed above in the history of present illness. In addition, the patient has numbness/pain of legs, weakness, change in walk, jair n in back. PSYCHIATRIC: No depression, no sleep disorders, no anxiety, no bipolar disorder, no psycho tic episodes. CARDIOVASCULAR: No heart attacks, no heart murmur, no heart fluttering, no chest pain, no ankle swelling. LUNG DISEASE: No shortness of breath, no cough, no tuberculosis, no bloody cough, no asth ma, no emphysema/COPD. GASTROINTESTINAL: No bowel disease, no nausea or vomiting, no rectal bleeding, no constipa tion, no stool incontinence, no liver disease, positive for gallbladder disease, no abdomina l pain, no ulcers. KIDNEY DISEASE: No urinary frequency, no painful or difficult urination, no incontinence. ENDOCRINE: No diabetes, no thyroid disease, no osteopenia or osteoporosis, no breast drain age. SKIN: No breast lumps, no skin changes, no rashes, no itches. HEMATOLOGIC/LYMPHATIC: No enlarged lymph nodes, no easy or unusual bleeding, no personal h istory of cancer. RHEUMATOLOGIC: No joint arthritis, no rheumatoid arthritis. documented in this enc ounter Plan of Treatment +--------+---------+ + + + | Date | Type | Specialty | Care Team | Description | +--------+---------+ + + + | 10/06/ | Office | Cardiology | Elvin Jamil | | | 2019 | Visit | | MD [address] | | | | | | [facility] | | | | | | [place], [place] | | | | | | [address] | | | | | | | | +--------+---------+ + + + documented as of this encounter Results MRI Thoracic Spine wo Contrast (12/01/2012 4:52 PM PDT) + + | Specimen | + + | | + + + + + | Narrative | Performed At | + + + | [facility] | [place] | | Department [address] [place] [address] | [facility] | | [ rep [address]] [ rep [facility] | | st zip] Signed | - IMAGING | | | | | Patient Name: HEMANT CUMMINSYCSaeed Alarcon Physician: | | | : 1940 Age: 72 Sex: F Unit #: [id number] | | | Exam Date: 12/01/12 Location: [facility] | | | Report #: [id number] Page: | | | %(RAD)RES..mtdd.print.filter("pg") of %(RAD) | | | RES..mtdd.print.filter("tpg") | | | | | | Accession Number: [id number] | | | MRI THORACIC SPINE CLINICAL HISTORY: LOWER EXTREMITY | | | WEAKNESS AND SPASTICITY. TECHNIQUE: Multiplanar, | | | multisequence imaging of the thoracic region is performed. Patient | | | did receive contrast earlier this date for cervical spine study. | | | FINDINGS: The thoracic cord shows normal signal and | | | appearance throughout. Alignment of the thoracic spine is normally | | | maintained. There is a large, typical hemangioma in T11, with a | | | smaller hemangioma in T6. No destructive marrow signal changes are | | | present. Vertebral body heights are normally maintained. | | | There is a mild [3 mm] broad-based disk bulge at T6-7, without | | | associated central canal or foraminal encroachment. At T9-10, a | | | large [5 mm] broad-based disk bulge is present centrally. Some high | | | signal is present in the annulus indicating an accompanying annular | | | tear. The central canal is capacious, and this disk does not | | | produce a significant central canal stenosis or contouring of the | | | cord. Foramina are patent. No other areas of disk herniation are | | | evident. There are no areas of foraminal narrowing. | | | In the extraspinous soft tissues, incidental note is made of | | | hypertrophy of the acromioclavicular joints bilaterally. No other | | | adjacent abnormalities. IMPRESSION: 1. | | | DEGENERATIVE DISK CHANGES AT T6-7 AND T8-9 DESCRIBED ABOVE. NO | | | AREAS OF CORD COMPRESSION OR NEURAL ENCROACHMENT ARE SUGGESTED. | | | Dictated Date/Time: 12/01/2012 16:52 Transcribed | | | Date/Time: 12/01/2012 19:29 Retention Manager: | | | <<Signature on File>> | | | | | | Michael Lopez MD12/02/12 0727 <Electronically signed by | | | Michael Lopez MD> Michael Lopez MD 12/01/12 | | | 2112 Retention Manager: [employer] [id number] | | | Wilton Smith DO | | + + + + + + + + | Performing | Address | City/State/Zipcode | Phone Number | | Organization | | | | + + + + + | [facility] | [address] | [place] | [phone] | | [facility] | | [address] | | | - IMAGING | | | | + + + + + documented in this encounter Visit Diagnoses + + | Diagnosis | + + | Muscle spasticity - Primary Spasm of muscle | + + | Lumbago | + + | Lumbar spondylosis Lumbosacral spondylosis without myelopathy | + + | Lumbar canal stenosis Spinal stenosis, lumbar region, without neurogenic claudication | + + | Weakness of both legs Other musculoskeletal symptoms referable to limbs | + + | Spondylolisthesis of lumbar region Acquired spondylolisthesis | + + documented in this encounter
--- OUTSIDE RECORDS SUMMARY | ~2019-07-17 | XMS | Encounter Summary ---
Demographics + + + | Address | [address] | | | [place] [address] | + + + | Home Phone [...] [place] | | | | | [address] | | + + + + + | Beatrice Paulson | ECON | [address] | | | | | [place] | | | | | [address] | | + + + + + Care Team Providers + +------+ + | Care Emergency Communications Dispatcher Name | Role | Phone | + +------+ + PCP | Unavailable | + +------+ + Encounter Details +--------+ + + + + | Date | Type | Department | Care Team | Description | +--------+ + + + + | 11/23/ | Hospital | [facility] | Justen Ribera | | | 2009 | Encounter | MED CTR XRAY [address], [address] | | | | | [address] [place] | [address] [place], [place] | | | | | [place] [address] | [address] | | | | | [phone] | [phone] | | | | | | | [...] [place] | | | | | | [address] | | | | | | | | +--------+---------+ + + + documented as of this encounter Visit Diagnoses Not on filedocumented in this encounter"
--- OUTSIDE RECORDS SUMMARY | ~2019-07-17 | XMS | Encounter Summary ---
Demographics + + + | Address | [address] | | | [place] [address] | + + + | Home Phone | | + + + | Preferred Language | Unknown | + + + | Marital Status | | + + + | Rastafari Affiliation | Unknown | + + + | Race | Unknown | + + + | Ethnic Group | Unknown | + + + Author + + + | Author | [facility] | | | and [place] | + + + | Organization | [facility] | | | and [place] | + + + | Address | Unknown | + + + | Phone | Unavailable | + + + Support + + + + + | Name | Relationship | Address | Phone | + + + + + | Veronica Anderson | ECON | [place] | | | | | [address] | | + + + + + | Beatrice Paulson | ECON | [address] | | | | | [place] | | | | | [address] | | + + + + + Care Team Providers + +------+ + | Care Joiner Apprentice Name | Role | Phone | + +------+ + | Venkata Pettit MD | PCP | | + +------+ + Reason for Visit + + + | Reason | Comments | + + + | Hip Pain | Bilateral hip pain | + + + | Shoulder Pain | Left shoulder pain | + + + Evaluate & Treat [...] | Required | Rehabilitatio | fusion | [address] | | | | n | Lumbar | [address] | [place] | | | | | spinal | [place], | [place] | | | | | stenosis | [place] [address] | [address] Phone: | | | | | Spondylolist | Phone: | [phone] | | | | | hesis of | [phone] | Fax: | | | | | lumbar | [phone] Fax: | [phone] | | | | | region | | | | | | | [place] | [phone] | | | | | | stenosis [...] | +--------+ + + + + + Encounter Details +--------+---------+ + + + | Date | Type | Department | Care Team | Description | +--------+---------+ + + + | 04/22/ | Office | [facility] | Olayinka Rothman | Trochanteric | | 2012 | Visit | PHYSIATRY [address] | bursitis (Primary | | | | [address] | [place], [place] | Dx); Sacroiliitis | | | | [place] | [address] | (HCC); S/P lumbar | | | | [address] | | fusion; S/P cervical | | | | [phone] | | spinal fusion; | | | | | | Myofascial pain | | | | | | syndrome; | | | | | | Statin-induced | | | | | | myositis; Left | | | | | | shoulder pain | +--------+---------+ + + + Social History [...] + + + | Blood Pressure | 147/70 | 04/22/2012 10:45 AM | | | | | PDT | | + + + + + | Pulse | 73 | 04/22/2012 10:45 AM | | | | | PDT [...] + + + + | Weight | 122.9 kg (271 lb) | 04/22/2012 10:45 AM | | | | | PDT | | + + + + + | Height | 172.7 cm (5' 8") | 04/22/2012 10:45 AM | | | | | PDT | | + + + + + | Body Mass Index | 41.21 | 04/22/2012 10:45 AM | | | | | PDT | | + + + + + documented in this encounter Patient Instructions Patient Instructions Fanny Sahni - 04/22/2012 11:27 [facility] before your scheduled procedure to allow for time to check in. You may eat and drink as usual on the day of the procedure. Do not take any blood thinning medications for at least 5-7 days prior to your procedure. All other medications should be taken as usual. Common blood thinning medications include: Aspirin (a baby aspirin is o.k.) Ibuprofen (Advil or Motrin) Naproxen (Aleve) Nabumetone (Relafen) Clopidogrel (Plavix) Dipyridamole/ASA (Aggrenox) Warfarin (Coumadin) Dabigatran (Pradaxa) There are many others. If you have questions about your medications please contact our off ice. Please also provide a power truck driver to take you home on the day of the procedure. documented in this encounter Progress Notes Olayinka Rothman MD - 04/22/2012 10:55 AM PDT Subjective: Patient ID: Kassie Bear is a 71 y.o. female. Chief Complaint Patient presents with Hip Pain Bilateral hip pain Shoulder Pain Left shoulder pain HPI The patient is being seen today in follow-up for complaints of low back pain and bilate ral hip pain. The patient has been seen for these complaints as well as other complaints in the past. She has had both a cervical and lumbar fusion. She has been previously diagnosed with sacroiliitis and trochanteric bursitis and has responded well to interventional proced ures in those areas. She feels that the pain is coming from the SI joints and trochanteric bursa region bilaterally. She has also had some recent shoulder pain. She describes this a s a raw feeling on her skin like a carpet burn. She describes her hip and back symptoms as aching. Her symptoms worsen with walking and wi th lying on her sides at night. Her symptoms improve with physical therapy and with the janel or injections. She was taking Diclofenac but this was recently discontinued by her cardiolo gist. She denies numbness. She does report generalized weakness. This improved after she st opped her Crestor. Treatments for these complaints have included physical therapy, two prior lumbar surgeries and prior injections. Prior injections have included Bilateral SI Joint injection which was performed by me on . She has also received trochanteric bursa injections in the past by me. Patient's medications, allergies, past medical, surgical, social and family histories were reviewed and updated as appropriate. Review of Systems No complaints other than those listed above in HPI. Objective: Physical Exam Nursing note and vitals reviewed. Constitutional: She is oriented to person, place, and time. She appears well-developed and well-nourished. HENT: Head: Normocephalic and atraumatic. Neck: No tracheal deviation present. Cardiovascular: Normal rate and regular rhythm. Pulmonary/Chest: Effort normal and breath sounds normal. No respiratory distress. Lymphadenopathy: She has no cervical adenopathy. Neurological: She is alert and oriented to person, place, and time. She has normal strength . No cranial nerve deficit or sensory deficit. She displays no Babinski's sign on the right side. She displays no Babinski's sign on the left side. Reflex Scores: Patellar reflexes are 2+ on the right side and 2+ on the left side. Achilles reflexes are 0 on the right side and 0 on the left side. Skin: Skin is warm, dry and intact. No abrasion, no bruising, no ecchymosis, no laceration and no rash noted. Psychiatric: She has a normal mood and affect. Her speech is normal and behavior is normal. Thought content normal. Cognition and memory are normal. Musculoskeletal: Straight leg raise and slump-sit are negative. Elvin's maneuver and im pingement testing were negative for any groin pain. There was significant tenderness to pa lpation over the greater trochanters and sacral sulci. The patient localized the majority o f the pain to those regions. Lumbar facet loading was negative. Strength testing showed 5/ 5 strength throughout the lower extremities. The patient was not able to heel walk due to b alance issues. She was able to toe walk. There was no redness, effusion or warmth in the k nees or ankles. She does have diffuse tenderness to palpation throughout the lower extremit ies. She walks with a Trendelenburg gait. Assessment: 1. Trochanteric bursitis - bilateral 2. Sacroiliitis -bilateral 3. S/P lumbar fusion 4. S/P cervical spinal fusion 5. Myofascial pain syndrome 6. Statin-induced myositis - now improved 7. Left shoulder pain Plan: 1. We discussed her medications in detail trying to find a new anti inflammatory she can ta ke to replace the diclofenac. I discussed with her that all of the NSAIDs will have some ri sks for the heart, kidneys and stomach. She was told by her device sales consultant that Naproxen is a good choice with regard to the heart issues. I recommended that Meloxicam or Celebrex may also be good options as they are easier on the stomach, but I am not sure what their relativ e risk to the heart is. She will discuss those meds with her PCP and device sales consultant. 2. The patient was very interested in trochanteric bursa injections and possibly sacroilia c joint injections again. I do not think it is in her best interest to have them all done a t once. I did agree to try the trochanteric bursa injections today and I will have her come back in a few weeks for the SI joint injections. Description of procedure: After reviewing the relative risks and benefits the patient consented to the procedure. The patient laid in a right lateral decubitus position. The most tender area was palpated then marked over the lateral hip. The area was then sterilized with Betadine swabs and alcohol and cooled with an ethyl chloride spray before inserting a 1-1/2 inch 27-gauge needle. Appr oximately 2 mL of 1% lidocaine was then infused. A 22 gauge spinal needle was then advanced down to the greater trochanter. Once bone was encountered the needle was slightly retracted before injecting a total volume of 5 mL including 1 mL of triamcinolone ( 40 milligrams per mL) and 2 mL each of 1% lidocaine and 0.5% bupivicaine. The needle was then removed and the area was cleaned and bandaged. The patient tolerated the procedure well. There were no comp lications. The patient was instructed to ice the area for 15-20 minutes several times over the next few days and to watch for any signs of infection. 3. The patient is also very interested in getting back in to physical therapy. I did give her a detailed PT prescription. documented in this encounter Plan of Treatment +--------+---------+ + + + | Date | Type | Specialty | Care Team | Description | +--------+---------+ + + + | 10/06/ | Office | Cardiology | Elvin Jamil | | | 2019 | Visit | | [address] | | | | | | [facility] | | | | | | [place], [place] | | | | | | [id number] | | | | | | | | +--------+---------+ + + + documented as of this encounter Visit Diagnoses + + | Diagnosis | + + | Trochanteric bursitis - Primary Enthesopathy of hip region | + + | Sacroiliitis (HCC) Sacroiliitis, not elsewhere classified | + + | S/P lumbar fusion Arthrodesis status | + + | S/P cervical spinal fusion Arthrodesis status | + + | Myofascial pain syndrome Mylagia and myositis, unspecified | + + | Statin-induced myositis Mylagia and myositis, unspecified | + + | Left shoulder pain Pain in joint, shoulder region | + + documented in this encounter
--- OUTSIDE RECORDS SUMMARY | ~2019-07-17 | XMS | Encounter Summary ---
Demographics + + + | Address | [address] | | | [place] [address] | + + + | Home Phone | | + + + | Preferred Language | Unknown | + + + | Marital Status | | + + + | Taoism Affiliation | Unknown | + + + [...] [place] | | | | | [address] | | + + + + + | Beatrice Paulson | ECON | [address] | | | | | [place] | | | | | [address] | | + + + + + Care Team Providers + +------+ + | Care Administrative Sales Assistant Name | Role | Phone | + [...] | | | | | | sm ([facility]) | | | | | | | [...] | +--------+ + + + + | 04/04/ | Anesthesia | [facility] | Idalia Leiva, | | | 2019 | Event | [facility] | MD [address] | | | | | [address]PER[address] | [place] [address] | | | | | [address] | [phone] | | | | | [place], [place] | | | | | | [address] | | | | | | [phone] | | | +--------+ + + + + Anesthesia Record + + + + + | Procedure Name | Responsible | Anesthesia Start | Anesthesia Stop Time | | | Anesthesiologist | Time | | + + + + + | ENDARTERECTOMY | Idalia Leiva MD | 04/04/19 0734 | 04/04/19 1146 | | FEMORAL Will need | | | | | arteriogram in IR | | | | | initially under | | | | | moderate sedation | | | | | and if not amenable | | | | | to stenting then | | | | | will need left groin | | | | | cut down. (Left ) | | | | + + + + + +----+---+ + + | Da | T | Event | Comment | | te | i | | | | | m | | | | | e | | | +----+---+ + + | 02 | 0 | An Checkout | Pre-use anesthesia machine/equipment checkout. | | /2 | 7 | | | | 2/ | 3 | | | | 20 | 0 | | | | 20 | | | | +----+---+ + + | | 0 | An Start | Reassessment prior to anesthesia induction/procedure. | | | 7 | | | | | 3 | | | | | 4 | | | +----+---+ + + | | 0 | Quick Note | 32F nasopharyngeal airway placed in left nares | | | 8 | | | | | 0 | | | | | 0 | | | +----+---+ + + | | 0 | An | | | | 8 | Induction | | | | 4 | | | | | 7 | | | +----+---+ + + | | 0 | An | | | | 8 | Intubation | | | | 4 | | | | | 9 | | | +----+---+ + + | | 0 | First | | | | 9 | Inc/Proc St | | | | 1 | | | | | 0 | | | +----+---+ + + | | 1 | Extubation/ | | | | 1 | Airway LDA | | | | 2 | Removal | | | | 5 | | | +----+---+ + + | | 1 | an stop | | | | 1 | data | | | | 3 | | | | | 6 | | | +----+---+ + + | | 1 | An Stop | Patient handed off to recovery nurse. | | | 4 | | | | | 6 | | | +----+---+ + + +------+ | Meds | +------+ + + + | Name | Total | + + + | midazolam 2 mg/mL | 2 mg | + + + | fentaNYL | 200 mcg | + + + | propofol | 90 mg | + + + | propofol infusion | 2,007.72 mg | + + + | ondansetron (ZOFRAN) injection 4 | 4 mg | | mg | | + + + | succinylcholine | 100 mg | + + + | scopolamine TD | 1 patch | + + + | heparin | 5,000 Units | + + + | NS bolus | 700 mL | + + + +---------+ | Name | +---------+ | Insp O2 | +---------+ | Exp N2O | +---------+ | Exp SEV | +---------+ + + | No blood administrations on [...] +--------+ + + + | Periph | 04/03/19; 2300; Left; Anterior | 04/03/19 2300 by | 04/05/19 0100 by | | eral | (palmar), Distal; Forearm; | Rosemary Carrero RN | Rosemary Carrero RN | | IV | [id number] catheter system; | | | | | 22 gauge; removed inadvertently; | | | | | 04/05/19; 0100 | | | +--------+ + + + | Airway | Placement Date: 04/04/19; | 04/04/19 08 by | 04/04/19 0858 by | | | Placement Time: 802; Removal | Idalia Leiva MD | Idalia Leiva MD | | | Date: 04/04/19; Removal Time: | | | | | 857 (removed via procedure | | | | | documentation) | | | +--------+ + + + | Arteri | 04/04/19; 0809; Dr. Mullen; 6 | 04/04/19 0809 by | 04/04/19 1125 by | | al | Fr.; Right; Femoral; Injectable; | Valerie Tripathi, | Valerie Tripathi, | | Sheath | Yes; 04/04/19; 1125; Per order; | RN | RN | | | No complications, Catheter | | | | | intact, Dressing applied | | | +--------+ + + + | Drain/ | 04/04/19; 59; #1; Left; groin; | 04/04/19 09 by | 04/07/19 2030 by | | Device | gravity; 10mm ELSA with 100 ml | Yamilka Elizondo | Dasia Martinez, | | Site | suction evacuator; other (see | FRANCESCO Carter | RN | | | comments) (per [...] Barbara Dewey RN | | IV | cdow-slk-qhajot catheter system; | Tigre Hinton RN | [...] + + + | Wound | 04/04/19; 1058; N; Incision; | 04/04/19 1058 by | 04/04/19 1148 by | | | Left; anterior; thigh; other (see | Valerie Tripathi, | Rivka Ibarra, | | | comments) (hematoma evacuation); | RN | RN | | | see new LDA to this area post | | | | | op; 04/04/19; 1148 | | | +--------+ + + + [...] [address] | | | | | | [facility] | | | | | | [place] | | | | | | [address] | | | | | | | | +--------+---------+ + + + documented as of this encounter Procedures + +--------+ + + + | Procedure Name | Priori | Date/Time | Associated Diagnosis | Comments | | | ty | | | | + +--------+ + + + | ANE AIRWAY NOTE | Routin | 04/04/2019 | | Results for this | | | e | 8:57 AM | | procedure are in the | | | | PST | | results section. | + +--------+ + + + documented in this encounter Results Airway (04/04/2019 8:57 AM PST) + + + | Narrative | Performed At | + + + | Idalia Leiva MD 04/04/2019 8:58 AM Anesthesia Airway | | | Placement 04/04/2019 8:49 AM Preprocedure check: patient | | | identified, oxygen, airway assessed, patient reassessment prior to | | | induction, airway equipment checked and suction Mask ventilation: | | | easy Successful technique: Mac Laryngoscope blade size: 3 | | | Airway grade: 2a (Partial view of glottis) Other equipment: stylette | | | Attempts: 1 Airway type: endotracheal Cuffed: cuffed Route, | | | reference point: center of mouth Tube depth: 22 cm Tube secured | | | with: adhesive tape Trauma: none Tube placement verification: | | | bilateral chest rise and carbon dioxide detection Performing | | | provider: Idalia Leiva MD Authorizing provider: Idalia | | | MD Cali Please see intraoperative grid for any | | | additional medication documentation. | | + + + documented in this encounter Visit Diagnoses Not on filedocumented in this encounter Administered Medications + +--------+ +--------+------+------+ | Medication Order | MAR | Action | Dose | Rate | Site | | | Action | Date | | | | + +--------+ +--------+------+------+ | fentaNYL (PF) injection | Given | 04/04/19 | 50 mcg | | | | Intravenous, PRN, Starting Sat | | 20 11:35 | | | | | 04/04/19 at 0907, Anesthesia | | AM PST | | | | | Intra-op | | | | | | + +--------+ +--------+------+------+ +-------+ +--------+---+---+ | Given | 04/04/19 | 50 mcg | | | | | 20 11:29 | | | | | | AM PST | | | | +-------+ +--------+---+---+ | Given | 04/04/19 | 50 mcg | | | | | 20 9:53 | | | | | | AM PST | | | | +-------+ +--------+---+---+ +---+---+ | | | +---+---+ + +-------+ +--------+---+---+ | heparin 1,000 units/mL | Given | 04/04/19 | 5,000 | | | | injection Intravenous, PRN, | | 20 10:03 | Units | | | | Starting 04/04/19 at 1003, | | AM PST | | | | | Anesthesia Intra-op | | | | | | + +-------+ +--------+---+---+ +---+---+ | | | +---+---+ + +-------+ +------+---+---+ | midazolam (VERSED) 1 mg/mL | Given | 04/04/19 | 1 mg | | | | injection Intravenous, PRN, | | 20 7:40 | | | | | Starting 04/04/19 at 0735, | | AM PST | | | | | Anesthesia Intra-op | | | | | | + +-------+ +------+---+---+ +-------+ +------+---+---+ | Given | 04/04/19 | 1 mg | | | | | 20 7:35 | | | | | | AM [...] | propofol (DIPRIVAN) injection | Given | 04/04/19 | 50 mg | | | | Intravenous, PRN, Starting Sat | | 20 8:47 | | | | | 04/04/19 at 0745, Anesthesia | | AM PST | | | | | Intra-op | | | | | | + +-------+ +-------+---+---+ +-------+ +-------+---+---+ | Given | 04/04/19 | 40 mg | | | | | 20 7:45 | | | | | | AM PST | | | | +-------+ +-------+---+---+ +---+---+ | | | +---+---+ + + + + +-------+---+ | propofol infusion (DIPRIVAN) 10 | Rate/Dos | 04/04/19 | 60 | 46.3 | | | mg/mL infusion Intravenous, | e Change | 20 9:06 | mcg/kg/m | mL/hr | | | CONTINUOUS PRN, Starting Sat | | AM PST | in | | | | 04/04/19 at 0750, Anesthesia | | | | | | | Intra-op | | | | | | + + + + +-------+---+ + + + +-------+---+ | Rate/Dose Change | 04/04/19 | 100 | 77.2 | | | | 20 7:55 | mcg/kg/m | mL/hr | | | | AM PST | in | | | + + + +-------+---+ | New Bag | 04/04/19 | 80 | 61.8 | | | | 20 7:50 | mcg/kg/m | mL/hr | | | | AM PST | in | | | + + + +-------+---+ +---+---+ | | | +---+---+ + +-------+ +---------+---+---+ | scopolamine (TRANSDERM-SCOP) 1 | Given | 04/04/19 | 1 patch | | | | mg/3 days Transdermal, PRN, | | 20 9:00 | | | | | Starting 04/04/19 at 0900, | | AM PST | | | | | Anesthesia Intra-op | | | | | | + +-------+ +---------+---+---+ +---+---+ | | | +---+---+ + +---------+ +---+---+---+ | sodium chloride 0.9% (NS) bolus | New Bag | 04/04/19 | | | | | Intravenous, Administer over 2 | | 20 7:40 | | | | | Hours, CONTINUOUS PRN, Starting | | AM PST | | | | | 04/04/19 at 0740, Anesthesia | | | | | | | Intra-op | | | | | | + +---------+ +---+---+---+ +---+---+ | | | +---+---+ + +-------+ +--------+---+---+ | succinylcholine (ANECTINE) | Given | 04/04/19 | 100 mg | | | | injection Intravenous, PRN, | | 20 8:47 | | | | | Starting 04/04/19 at 0847, | | AM PST | | | | | Anesthesia Intra-op | | | | | | + +-------+ +--------+---+---+ +---+---+ | | | +---+---+ documented in this encounter"
--- OUTSIDE RECORDS SUMMARY | ~2019-07-17 | XMS | Encounter Summary ---
Demographics + + + | Address | [address] | | | [place] [address] | + + + | Home Phone | | + + + | Preferred Language | Unknown | + + + | Marital Status | | + + + | Muslim Affiliation | Unknown | + + + [...] [place] | | | | | [address] | | + + + + + | Beatrice Paulson | ECON | [address] | | | | | [place] | | | | | [address] | | + + + + + Care Team Providers + +------+ + | Care Scholarship Counselor Name | Role | Phone | + [...] | | | . | | [place] [address] | | | | | | | Phone: | | | | | | | [phone] | | | | | | | Fax: | | | | | | | [phone] | +--------+--------+ + + + + Encounter Details +--------+ + + + + | Date | Type | Department | Care Team | Description | +--------+ + + + + | 02/20/ | Hospital | [facility] | Loulou Elvin | Persistent atrial | | 2020 | Encounter | CENTER CV INTRA OP | [address] | fibrillation (HCC) | | | | [address] | [facility], [facility] | | | | | [facility] [place] | [place] | | | | | [address] | [address] | | | | | [phone] | | | +--------+ + + + [...] [address] | | | | | | [facility] | | | | | | [place] | | | | | | [id number] | | | | | | | [...] | | | | | leadsConfirmed by Rachel | | | | | | Shad [...] | | | | | performed at [facility];[address] | | | | | | [address];[place] | | | | | | [address] | | | | + + + + + + + + | Specimen | + + | Blood | + + + + + + + | Performing | Address | City/State/Zipcode | Phone Number | | Organization | | | | + + + + + | [facility] | [address] | [place] [address] | [phone] | + + + + + CBC [...] | | | Absolute | performed at [facility];[address] | [address] | LABORATORY | | | | [address];[place], [place] | | | | | | [address] | | | | + + + + + + + + | Specimen | + + | Blood | + + + + + + + | Performing | Address | City/State/Zipcode | Phone Number | | Organization | | | | + + + + + | [facility] | [address] | [place] [address] | [phone] | + + + + + Basic [...] | | | | | performed at [facility];[address] | | | | | | [facility], [place] | | | | | | [address] | | | | + + + + + + + + | Specimen | + + | Blood | + + + + + + + | Performing | Address | City/State/Zipcode | Phone Number | | Organization | | | | + + + + + | [facility] | [address] | [place] [address] | [phone] | + + + + + ECG [...]
--- OUTSIDE RECORDS SUMMARY | ~2019-07-17 | XMS | Encounter Summary ---
Demographics + + + | Address | [address] | | | [place] [address] | + + + | Home Phone | | + + + | Preferred Language | Unknown | + + + | Marital Status | | + + + | Baptism Affiliation | Unknown | + + + | Race | Unknown | + + + | Ethnic Group | Unknown | + + + Author + + + | Author | [facility] | | | and [place] | + + + | Organization | [facility] | | | and [place] | + + + | Address | Unknown | + + + | Phone | Unavailable | + + + Support + + + + + | Name | Relationship | Address | Phone | + + + + + | Veronica Anderson | ECON | [place] | | | | | [address] | | + + + + + | Beatrice Pauslon | ECON | [address] | | | | | [place] | | | | | [address] | | + + + + + Care Team Providers + +------+ + | Care Lime Sludge Kiln Operator Name | Role | Phone | [...] | | | | | sm ([facility]LY [facility]) | | | | | | [...] +--------+ + + + + | 03/31/ Anesthesia | [facility] | Carlos Salinas, | | | 2019 | Event | [facility] | [facility] [address] | | | | | LAB [address] | [place] [address] | | | | | [place], [place] | [phone] | | | | | [address] | | | | | | [phone] | | | +--------+ + + + + Anesthesia Record + + + + + | Procedure Name | Responsible | Anesthesia Start | Anesthesia Stop Time | | | Anesthesiologist | Time | | + + + + + | CV EP ABLATION AF | Carlos Salinas CRNA | 03/31/19 0744 | 03/31/19 1034 | | (N/A Heart) | | | | + + + + + +----+---+ + + | Da | T | Event | Comment | | te | i | | | | | m | | | | | e | | | +----+---+ + + | 02 | 0 | | | | /1 | 7 | | | | 8/ | 1 | | | | 20 | 5 | | | | 20 | | | | +----+---+ + + | | 0 | An Start | Reassessment prior to anesthesia induction/procedure. | | | 7 | | | | | 4 | | | | | 4 | | | +----+---+ + + | | 0 | An | | | | 7 | Induction | | | | 5 | | | | | 3 | | | +----+---+ + + | | 0 | An | | | | 7 | Intubation | | | | 5 | | | | | 5 | | | +----+---+ + + | | 0 | [place] | | | | 7 | 43-degrees | | | | 5 | | | | | 7 | | | +----+---+ + + | | 0 | Anesthesia | | | | 7 | Ready | | | | 5 | | | | | 9 | | | +----+---+ + + | | 0 | First | | | | 8 | Inc/Proc St | | | | 0 | | | | | 0 | | | +----+---+ + + | | 0 | an frank now | Fady, no christos, procedure started | | | 8 | | | | | 0 | | | | | 1 | | | +----+---+ + + | | 0 | Quick Note | ACT 357 | | | 9 | | | | | 0 | | | | | 7 | | | +----+---+ + + | | 0 | an frank now | Electrically converted | | | 9 | | | | | 2 | | | | | 1 | | | +----+---+ + + | | 1 | Extubation/ | | | | 0 | Airway LDA | | | | 1 | Removal | | | | 7 | | | +----+---+ + + | | 1 | Quick Note | Holding pressure on the groin sites, will head to PACU after | | | 0 | | hemostasis achieved | | | 1 | | | | | 9 | | | +----+---+ + + | | 1 | an frank now | | | | 0 | | | | | 2 | | | | | 8 | | | +----+---+ + + | | 1 | An Stop | Patient handed off to recovery nurse. | | | 3 | | | | | 4 | | | +----+---+ + + +------+ | Meds | +------+ + + + | Name | Total | + + + | fentaNYL | 50 mcg | + + + | lidocaine 2% | 100 mg | + + + | propofol | 140 mg | + + + | rocuronium | 5 mg | + + + | succinylcholine | 110 mg | + + + | dexamethasone | 8 mg | + + + | ondansetron | 4 mg | + + + | ePHEDrine | 25 mg | + + + | phenylephrine | 700 mcg | + + + | remifentanil | 608.97 mcg | + + + | propofol infusion | 534.67 mg | + + + | ranitidine | 50 mg | + + + | scopolamine TD | 1 patch | + + + | heparin | 16,000 Units | + + + | heparin | 3,520 Units | + + + | protamine | 50 mg | + + + | sodium chloride 0.9% (NS) | 800 mL | | infusion | | + + + + + | Name | + + | N2O Flow Rate (L/Min) | + + | O2 Flow Rate (L/Min) | + + | Insp O2 | + + | Exp N2O | + + | Exp SEV | + + | Air Flow Rate (L/Min) | + + + + | No [...] +--------+ + + + | Periph | 03/31/19; 0700; Left; Forearm; | 03/31/19 0700 by | 04/01/19 1127 by | | eral | [id number] catheter system; | Gaby Junior RN | Rivka Brand, | | IV | 18 gauge; Chemistry, Hematology, | | RN | | | Coagulation; distraction; | | | | | expected removal post discharge; | | | | | 04/01/19; 1127 | | | +--------+ + + + | Airway | Placement Date: 03/31/19; | 03/31/19 0755 by | 03/31/19 1017 by | | | Placement Time: 0755 (created via | Carlos Salinas CRNA | Carlos Salnias CRNA | | | procedure documentation); Mask | | | | | Ventilation: EZ; Airway Grade: | | | | | 2a; External Maneuvers: head | | | | | lift; Successful Technique: | | | | | Melvin; Laryngoscope Blade Size: | | | | | 2; Attempts: 1; Airway Type: | | | | | endotracheal; Size: 7; Airway | | | | | Tube Secured At: 21; Trauma: | | | | | none; Other Equipment: stylette; | | | | | Placement Check: exhaled CO2 | | | | | detection device, bilateral chest | | | | | rise, breath sounds equal | | | | | bilaterally; Removal Date: | | | | | 03/31/19; Removal Time: 1017 | | | +--------+ + + + | Arteri | 03/31/19; 0810; Dr. Jamil; 4 | 03/31/19 0810 by | 03/31/19 1007 by | | al | Fr.; Left; Femoral; No; | Jace Marc, | Jace Marc, | | Sheath | Injectable; Yes, x1 lumen; | RN | RN | | | 03/31/19; 1007; Per order; No | | | | | complications | | | +--------+ + + + | Venous | 03/31/19; 0810; Dr. Jamil; 6 | 03/31/19 0810 by | 03/31/19 1007 by | | | Fr.; Left; Femoral; No; | Jace Marc, | Jace Marc, | | Sheath | Injectable; Yes, x1 lumen; | RN | RN | | | 03/31/19; 1007; Per order; No | | | | | complications | | | +--------+ + + + | Venous | 03/31/19; 0810; Dr. Jamil; 9 | 03/31/19 0810 by | 03/31/19 1007 by | | | Fr.; Left; Femoral; No; | Jace Marc, | Jace Marc, | | Sheath | Injectable; Yes, x1 lumen; | RN | RN | | | 03/31/19; 1007; Per order; No | | | | | complications | | | +--------+ + + + | Venous | 03/31/19; 0811; Dr. Jamil; 7 | 03/31/19 0811 by | 03/31/19 1008 by | | | Fr.; Right; Femoral; No; | Jace Marc, | Jace Marc, | | Sheath | Injectable; Yes, x1 lumen; | RN | RN | | | 03/31/19; 1008; Per order; No | | | | | complications | | | +--------+ + + + | Venous | 03/31/19; 0812; Dr. Jamil; 8 | 03/31/19 0812 by | 03/31/19 1007 by | | | Fr.; Right; Femoral; No; | Jace Marc, | Jace Marc, | | Sheath | Injectable; Yes, x1 lumen; | RN | RN | | | 03/31/19; 1007; Per order; No | | | | | complications | | | +--------+ + + + [...] | | | | | [facility] | | | | | | [place] | | | | | | [address] | | | | | | | | +--------+---------+ + + + documented as of this encounter Procedures + +--------+ + + + | Procedure Name | Priori | Date/Time | Associated Diagnosis | Comments | | | ty | | | | + +--------+ + + + | ANE AIRWAY NOTE | Routin | 03/31/2019 | | Results for this | | | e | 8:07 AM | | procedure are in the | | | | PST | | results section. | + +--------+ + + + documented in this encounter Results Airway (03/31/2019 8:07 AM PST) + + + | Narrative | Performed At | + + + | Carlos Salinas CRNA 03/31/2019 8:07 AM Anesthesia Airway | | | Placement 03/31/2019 7:55 AM Preprocedure check: patient | | | identified, suction, airway equipment checked, patient reassessment | | | prior to induction, oxygen and airway assessed Mask ventilation: | | | easy External maneuver: head lift Successful technique: Melvin | | | Laryngoscope blade size: 2 Airway grade: 2a (Partial view of | | | glottis) Other equipment: stylette Attempts: 1 Airway type: | | | endotracheal Size: 7 Cuffed: cuffed Route, reference point: | | | teeth/lips Tube depth: 21 cm Tube secured with: adhesive tape | | | Trauma: none Tube placement verification: bilateral chest rise, equal | | | bilateral breath sounds and carbon dioxide detection Performing | | | provider: Carlos Salinas CRNA Authorizing provider: Carlos Salinas | | | [facility] Please see intraoperative grid for any additional | | | medication documentation. | | + + + documented in this encounter Visit Diagnoses Not on filedocumented in this encounter Administered Medications + +--------+ +------+------+------+ | Medication Order | MAR | Action | Dose | Rate | Site | | | Action | Date | | | | + +--------+ +------+------+------+ | dexamethasone (DECADRON) 4 | Given | 03/31/19 | 8 mg | | | | mg/mL injection Intravenous, | | 20 7:58 | | | | | PRN, Starting 03/31/19 at | | AM PST | | | | | 0758, Anesthesia Intra-op | | | | | | + +--------+ +------+------+------+ +---+---+ | | | +---+---+ + +-------+ +------+---+---+ | ePHEDrine in saline 5 mg/mL IV | Given | 03/31/19 | 5 mg | | | | syringe Intravenous, PRN, | | 20 8:29 | | | | | Starting 03/31/19 at 0817, | | AM PST | | | | | Anesthesia Intra-op | | | | | | + +-------+ +------+---+---+ +-------+ +-------+---+---+ | Given | 03/31/19 | 10 mg | | | | | 20 8:23 | | | | | | AM PST | | | | +-------+ +-------+---+---+ | Given | 03/31/19 | 5 mg | | | | | 20 8:19 | | | | | | AM PST | | | | +-------+ +-------+---+---+ +---+---+ | | | +---+---+ + +-------+ +--------+---+---+ | fentaNYL (PF) injection | Given | 03/31/19 | 50 mcg | | | | Intravenous, PRN, Starting Tue | | 20 7:53 | | | | | 03/31/19 at 0753, Anesthesia | | AM PST | | | | | Intra-op | | | | | | + +-------+ +--------+---+---+ +---+---+ | | | +---+---+ + +-------+ +---------+---+---+ | heparin 1,000 units/mL | Given | 03/31/19 | 16,000 | | | | injection Intravenous, PRN, | | 20 8:22 | Units | | | | Starting 03/31/19 at 0822, | | AM PST | | | | | Anesthesia Intra-op | | | | | | + +-------+ +---------+---+---+ +---+---+ | | | +---+---+ + +---------+ + +-------+---+ | heparin 1,000 units/mL | New Bag | 03/31/19 | 3,200 | 3.2 | | | injection Intravenous, | | 20 8:22 | Units/hr | mL/hr | | | CONTINUOUS PRN, Starting Tue | | AM PST | | | | | 03/31/19 at 0822, Anesthesia | | | | | | | Intra-op | | | | | | + +---------+ + +-------+---+ +---+---+ | | | +---+---+ + +-------+ +--------+---+---+ | lidocaine (PF) 2% injection | Given | 03/31/19 | 100 mg | | | | Intravenous, PRN, Starting Tue | | 20 7:53 | | | | | 03/31/19 at 0753, Anesthesia | | AM PST | | | | | Intra-op | | | | | | + +-------+ +--------+---+---+ +---+---+ | | | +---+---+ + +-------+ +------+---+---+ | ondansetron (ZOFRAN) injection | Given | 03/31/19 | 4 mg | | | | Intravenous, PRN, Starting Tue | | 20 9:43 | | | | | 03/31/19 at 0943, Anesthesia | | AM PST | | | | | Intra-op | | | | | | + +-------+ +------+---+---+ +---+---+ | | | +---+---+ + +-------+ +--------+---+---+ | phenylephrine (JAYDA-SYNEPHRINE, | Given | 03/31/19 | 50 mcg | | | | VAZCULEP) 10 mg per mL injection | | 20 9:10 | | | | | Intravenous, PRN, Starting Tue | | AM PST | | | | | 03/31/19 at 0802, Anesthesia | | | | | | | Intra-op | | | | | | + +-------+ +--------+---+---+ +-------+ +--------+---+---+ | Given | 03/31/19 | 50 mcg | | | | | 20 9:06 | | | | | | AM PST | | | | +-------+ +--------+---+---+ | Given | 03/31/19 | 50 mcg | | | | | 20 8:53 | | | | | | AM PST | | | | +-------+ +--------+---+---+ +---+---+ | | | +---+---+ + +-------+ +--------+---+---+ | propofol (DIPRIVAN) injection | Given | 03/31/19 | 140 mg | | | | Intravenous, PRN, Starting Tue | | 20 7:53 | | | | | 03/31/19 at 0753, Anesthesia | | AM PST | | | | | Intra-op | | | | | | + +-------+ +--------+---+---+ +---+---+ | | | +---+---+ + + + + +-------+---+ | propofol infusion (DIPRIVAN) 10 | Rate/Dos | 03/31/19 | 30 | 22.9 | | | mg/mL infusion Intravenous, | e Change | 20 8:19 | mcg/kg/m | mL/hr | | | CONTINUOUS PRN, Starting Tue | | AM PST | in | | | | 03/31/19 at 0758, Anesthesia | | | | | | | Intra-op | | | | | | + + + + +-------+---+ + + + +-------+---+ | Rate/Dose Change | 03/31/19 | 45 | 34.3 | | | | 20 8:03 | mcg/kg/m | mL/hr | | | | AM PST | in | | | + + + +-------+---+ | New Bag | 03/31/19 | 50 | 38.1 | | | | 20 7:58 | mcg/kg/m | mL/hr | | | | AM PST | in | | | + + + +-------+---+ +---+---+ | | | +---+---+ + +-------+ +-------+---+---+ | protamine injection | Given | 03/31/19 | 50 mg | | | | Intravenous, PRN, Starting Tue | | 20 10:07 | | | | | 03/31/19 at 1007, Anesthesia | | AM PST | | | | | Intra-op | | | | | | + +-------+ +-------+---+---+ +---+---+ | | | +---+---+ + +-------+ +-------+---+---+ | raNITIdine (ZANTAC) injection | Given | 03/31/19 | 50 mg | | | | Intravenous, PRN, Starting Tue | | 20 7:58 | | | | | 03/31/19 at 0758, Anesthesia | | AM PST | | | | | Intra-op | | | | | | + +-------+ +-------+---+---+ +---+---+ | | | +---+---+ + + + + +-------+---+ | remifentanil (ULTIVA) injection | Rate/Dos | 03/31/19 | 0.03 | 0.2 | | | Intravenous, CONTINUOUS PRN, | e Change | 20 9:46 | mcg/kg/m | mL/hr | | | Starting 03/31/19 at 0758, | | AM PST | in | | | | Anesthesia Intra-op | | | | | | + + + + +-------+---+ + + + +-------+---+ | Rate/Dose Change | 03/31/19 | 0.04 | 0.3 | | | | 20 9:06 | mcg/kg/m | mL/hr | | | | AM PST | in | | | + + + +-------+---+ | Rate/Dose Change | 03/31/19 | 0.045 | 0.3 | | | | 20 8:44 | mcg/kg/m | mL/hr | | | | AM PST | in | | | + + + +-------+---+ +---+---+ | | | +---+---+ + +-------+ +------+---+---+ | rocuronium (ZEMURON) injection | Given | 03/31/19 | 5 mg | | | | Intravenous, PRN, Starting Tue | | 20 7:53 | | | | | 03/31/19 at 0753, Anesthesia | | AM PST | | | | | Intra-op | | | | | | + +-------+ +------+---+---+ +---+---+ | | | +---+---+ + +-------+ +---------+---+---+ | scopolamine (TRANSDERM-SCOP) 1 | Given | 03/31/19 | 1 patch | | | | mg/3 days Transdermal, PRN, | | 20 7:47 | | | | | Starting 03/31/19 at 0747, | | AM PST | | | [...] +---+ +---+ +---+---+ | | | +---+---+ + +-------+ +--------+---+---+ | succinylcholine (ANECTINE) | Given | 03/31/19 | 110 mg | | | | injection Intravenous, PRN, | | 20 7:53 | | | | | Starting 03/31/19 at 0753, | | AM PST | | | | | Anesthesia Intra-op | | | | | | + +-------+ +--------+---+---+ +---+---+ | | | +---+---+ documented in this encounter"
--- OUTSIDE RECORDS SUMMARY | ~2019-07-17 | XMS | Encounter Summary ---
Demographics + + + | Address | [address] | | | [place] [address] | + + + | Home Phone [...] [place] | | | | | [address] | | + + + + + | Beatrice Paulson | ECON | [address] | | | | | [place] | | | | | [address] | | + + + + + Care Team Providers + +------+ + | Care Director Of Supply Chain Name | Role | Phone | + +------+ + | Venkata Pettit MD | PCP | | + +------+ + Encounter Details +--------+ + + + + | Date | Type | Department | Care Team | Description | +--------+ + + + + | 05/08/ | Hospital | [facility] | Stephan Olayinka | | | 2012 - | Encounter | MED CTR XRAY [address] | [address] | | | | | [place] | [place] | | | 05/10/ | | [place] [address] | [address] | | | 2012 | | [phone] | | | +--------+ + + + [...] [address] | | | | | | [address] | | | | | | [place] | | | | | | [address] | | | | | | | | +--------+---------+ + + + documented as of this encounter Procedures + +--------+ + + + | Procedure Name | Priori | Date/Time | Associated Diagnosis | Comments | | | ty | | | | + +--------+ + + + | FL SI JOINT | Routin | 05/08/2012 | | Results for this | | INJECTION | e | 5:49 PM | | procedure are in the | | | | PDT | | results section. | + +--------+ + + + documented in this encounter Results FL SI Joint Injection (05/08/2012 5:49 PM PDT) + + | Specimen | + + | | + + + + + | Narrative | Performed At | + + + | [facility] | [place] | | Department [address] [place] [address] | [facility] | | [ rep [address]] [ rep [facility] | | [facility]] Signed | - IMAGING | | | | | Patient Name: KASSIE BEAR Physician: | | | DOC : 1940 Age: 71 Sex: F Unit #: [id number] | | | Exam Date: 05/08/12 Location: [facility] | | | Report #: [id number] Page: | | | %(RAD)RES..mtdd.print.filter("pg") of %(RAD) | | | RES..mtdd.print.filter("tpg") | | | | | | Accession Number: [id number] | | | SACROILIAC JOINT INJECTION CLINICAL HISTORY: ICD-9 | | | CODE IS 720.2, SACROILIITIS. Ms. Kassie Bear presents to | | | the fluoroscopy suite for fluoroscopically-guided bilateral sacroiliac | | | joint steroid injections as part of conservative management of | | | chronic pain with sacroiliitis. After informed consent was | | | obtained, the patient laid in the prone position on the fluoroscopy | | | table. The sacroiliac joints were identified under fluoroscopic | | | guidance. The area was prepped and draped in sterile fashion. A | | | 25-gauge 1.5 inch needle was inserted into each region and a | | | approximately 3 mL of buffered 1% lidocaine was infused. Then, a | | | 22-gauge spinal needle was inserted into the inferior joint spaces | | | under fluoroscopic guidance. Confirmation into the sacroiliac joints | | | was obtained with infusion of approximately 1 mL of Isovue contrast | | | which showed flow into the joint spaces. Then, a combination of 2 | | | mL of 1% lidocaine and 2 mL of 40 mg/mL Kenalog was infused, divided | | | between the two sides. The patient tolerated the procedure well | | | without complications. Pre- and post-procedure blood pressure was | | | stable. The patient was given verbal as well as written followup | | | instructions. The patient reported some improvement in pain | | | symptoms post procedure. Prior to the start of the | | | procedure the following were performed or verified, including correct | | | patient identity, correct site/side marked and visible, agreement on | | | the procedure to be done, correct patient positioning and an | | | accurate procedure consent form. All safety precautions based on | | | clinical history and/or medication use have been identified. | | | I personally performed the procedure above. Dictated | | | Date/Time: 05/08/2012 17:49 Transcribed Date/Time: 05/08/2012 | | | 22:11 Shot Packer: <<Signature | | | on File>> | | | Olayinka Duncan | | | MD Stephan05/09/12 0025 <Electronically signed by Olayinka Duncan | | | Stephan [place]> Olayinka Rothman MD 05/08/12 1749 | | | Shot Packer: Sujatha [id number]/28/13 2211 | | | | | + + + + + + + + | Performing | Address | City/State/Zipcode | Phone Number | | Organization | | | | + + + + + | [facility] | [address] | [place] | [phone] | | [facility] | | [address] | | | - IMAGING | | | | + + + + + documented in this encounter Visit Diagnoses Not on filedocumented in this encounter
--- OUTSIDE RECORDS SUMMARY | ~2019-07-17 | XMS | Encounter Summary ---
Demographics + + + | Address | [address] | | | [place] [address] | + + + | Home Phone | | + + + | Preferred Language | Unknown | + + + | Marital Status | | + + + | Jewish Affiliation | Unknown | + + + | Race | Unknown | + + + | Ethnic Group | Unknown | + + + Author + + + | Author | [facility] | | | and [place] | + + + | Organization | [facility] | | | and [place] | + + + | Address | Unknown | + + + | Phone | Unavailable | + + + Support + + + + + | Name | Relationship | Address | Phone | + + + + + | Veronica Anderson | ECON | [place] | | | | | [address] | | + + + + + | Beatrice Paulson | ECON | [address] | | | | | [place] | | | | | [address] | | + + + + + Care Team Providers + +------+ + | Care Ink Printer Name | Role | Phone | + +------+ + | Parvez Vail MD | PCP | | + +------+ + Encounter Details +--------+ + + + + | Date | Type | Department | Care Team | Description | +--------+ + + + + | 04/30/ | Orders Only | [facility] | Pranav Villar DNP | | | 2019 | | VASCULAR SURGERY | [address] | | | | | [address] [place] | [place], [place] | | | | | [place], [place] | [address] | | | | | [address] | | | | | | [phone] | | | +--------+ + + + [...] [address] | | | | | | [facility] | | | | | | [place] | | | | | | [address] | | | | | | | | +--------+---------+ + + + documented as of this encounter Visit Diagnoses Not on filedocumented in this encounter"
--- OUTSIDE RECORDS SUMMARY | ~2019-07-17 | XMS | Encounter Summary ---
Demographics + + + | Address | [address] | | | [place] [address] | + + + | Home Phone | | + + + | Preferred Language | Unknown | + + + | Marital Status | | + + + | Church Affiliation | Unknown | + + + [...] [place] | | | | | [address] | | + + + + + | Beatrice Paulson | ECON | [address] | | | | | [place] | | | | | [address] | | + + + + + Care Team Providers + +------+ + | Care Document Advisor Name | Role | Phone | + +------+ + | Venkata Pettit MD | PCP | | + +------+ + Encounter Details +--------+ + + + + | Date | Type | Department | Care Team | Description | +--------+ + + + + | 12/20/ | Orders Only | [facility] | Wilton Smith, | Back pain, | | 2015 | | NEUROSURGERY [address] | DO [address] | unspecified back | | | | [address] | [address] [place], [place] | pain laterality, | | | | [place], [place] | [address] | unspecified location | | | | [address] | | (Primary Dx); | | | | [phone] | | Status post lumbar | | [...] [address] | | | | | | [facility] | | | | | | [place] | | | | | | [address] | | | | | | | [...] February 13, 2013. FINDINGS:4 views of | [facility] | | the lumbar spine. Posterior [...] ST. | [address] | [place] | [phone] | | [facility] | | [address] | | | - IMAGING | | | | + + + + + documented in this encounter Visit Diagnoses + + | Diagnosis | + + | Back pain, unspecified back pain laterality, unspecified location - Primary | + + | Status post lumbar spinal fusion Arthrodesis status | + + documented in this encounter"
--- OUTSIDE RECORDS SUMMARY | ~2019-07-17 | XMS | Encounter Summary ---
Demographics + + + | Address | [address] | | | [place] [address] | + + + | Home Phone | | + + + | Preferred Language | Unknown | + + + | Marital Status | | + + + | Uatsdin Affiliation | Unknown | + + + | Race | Unknown | + + + | Ethnic Group | Unknown | + + + Author + + + | Author | [facility] | | | and [place] | + + + | Organization | [facility] | | | and [place] | + + + | Address | Unknown | + + + | Phone | Unavailable | + + + Support + + + + + | Name | Relationship | Address | Phone | + + + + + | Veronica Anderson | ECON | [place] | | | | | [address] | | + + + + + | Beatrice Paulson | ECON | [address] | | | | | [place] | | | | | [address] | | + + + + + Care Team Providers + +------+ + | Care Self Pay Representative Name | Role | Phone | + +------+ + PCP | Unavailable | + +------+ + Encounter Details +--------+ + + + + | Date | Type | Department | Care Team | Description | +--------+ + + + + | 12/22/ | Hospital | [facility] | Justen Ribera | | | 2009 | Encounter | MED CTR XRAY [address] | [address] | | | | | [place] | [address] [place], [place] | | | | | [place] [address] | [address] | | | | | [phone] | | | | | | | [...] [place] | | | | | | [address] | | | | | | | | +--------+---------+ + + + documented as of this encounter Visit Diagnoses Not on filedocumented in this encounter"
--- OUTSIDE RECORDS SUMMARY | ~2019-07-17 | XMS | Encounter Summary ---
Demographics + + + | Address | [address] | | | [place] [address] | + + + | Home Phone | | + + + | Preferred Language | Unknown | + + + | Marital Status | | + + + | Anglican Affiliation | Unknown | + + + | Race | Unknown | + + + | Ethnic Group | Unknown | + + + Author + + + | Author | [facility] | | | and [place] | + + + | Organization | [facility] | | | and [place] | + + + | Address | Unknown | + + + | Phone | Unavailable | + + + Support + + + + + | Name | Relationship | Address | Phone | + + + + + | Veronica Anderson | ECON | [place] | | | | | [address] | | + + + + + | Beatrice Paulson | ECON | [address] | | | | | [place] | | | | | [address] | | + + + + + Care Team Providers + +------+ + | Care Customs Verifier Name | Role | Phone | + +------+ + PCP | Unavailable | + +------+ + Encounter Details +--------+ + + + + | Date | Type | Department | Care Team | Description | +--------+ + + + + | 12/15/ | Hospital | [facility] | Justen Ribera | | | 2008 | Encounter | MED CTR XRAY [address] | | | | | [address] [place] [address] [place], [place] | | | | | [place] [address] | [id number] | | | | | [phone] | [phone] | | | | | | | [...] [place] | | | | | | [address] | | | | | | | | +--------+---------+ + + + documented as of this encounter Visit Diagnoses Not on filedocumented in this encounter"
--- OUTSIDE RECORDS SUMMARY | ~2019-07-17 | XMS | Encounter Summary ---
Demographics + + + | Address | [address] | | | [place] [address] | + + + | Home Phone | | + + + | Preferred Language | Unknown | + + + | Marital Status | | + + + | Confucianism Affiliation | Unknown | + + + | Race | Unknown | + + + | Ethnic Group | Unknown | + + + Author + + + | Author | [facility] | | | and [place] | + + + | Organization | [facility] | | | and [place] | + + + | Address | Unknown | + + + | Phone | Unavailable | + + + Support + + + + + | Name | Relationship | Address | Phone | + + + + + | Veronica Anderson | ECON | [place] | | | | | [address] | | + + + + + | Beatrice Paulson | ECON | [address] | | | | | [place] | | | | | [address] | | + + + + + Care Team Providers + +------+ + | Care Bean Picker Name | Role | Phone | + +------+ + | Parvez Vail MD | PCP | | + +------+ + Encounter Details +--------+ + + + + | Date | Type | Department | Care Team | Description | +--------+ + + + + | 09/10/ | Orders Only | [facility] | Lori Recinos DO | | | 2018 | | CONVERSION [address] | [address] | | | | | [place] | [place], [place] | | | | | [place], [place] | [address] | | | | | [address] | | | | | | [phone] | | | +--------+ + + + [...] [address] | | | | | | [facility] | | | | | | [place] | | | | | | [address] | | | | | | | | +--------+---------+ + + + documented as of this encounter Procedures + +--------+ + + + | Procedure Name | Priori | Date/Time | Associated Diagnosis | Comments | | | ty | | | | + +--------+ + + + | ECHO INTERPRETATION | Routin | 09/10/2018 | | Results for this | | OF OUTSIDE FILMS | e | 5:14 PM | | procedure are in the | | | | PDT | | results section. | + +--------+ + + + documented in this encounter Results ECHO Interpretation of Outside Films (09/10/2018 5:14 PM PDT) + + | Specimen | + + | | + + + + + | Impressions | Performed At | + + + | 1. Overall left ventricular systolic function is normal with an EF | | | between 55 - 60%. 2. The right ventricle is normal in size and | | | function. 3. There is moderate bi-atrial enlargement. 4. | | | Puwq-rc-qjmapipv mitral regurgitation is present. | | + + + + + + | Narrative | Performed At | + + + | Patient Name: Kassie Bear Date of : 1940 | | | Performing Physician: Lester Akins | | | | | | INDICATIONS AFIB CONCLUSIONS 1. | | | Overall left ventricular systolic function is normal with an EF | | | between 55 - 60%. 2. The right ventricle is normal in size and | | | function. 3. There is moderate bi-atrial enlargement. 4. | | | Yhla-hv-dlybanvq mitral regurgitation is present. FINDINGS | | | -------- ECG rhythm: Atrial fibrillation. Study: A 2-dimensional | | | transthoracic echocardiogram with m-mode, spectral and color flow | | | Doppler was perfomed at [facility]. Study: This was a technically adequate | | | study. Left Ventricle: Overall left ventricular systolic function is | | | normal with an EF between 55 - 60%. Left Ventricle: The left | | | ventricle cavity size is normal. Left Ventricle: Left ventricular | | | wall thickness is normal. Left Ventricle: No regional wall motion | | | abnormalities. Left Ventricle: Atrial fibrillation prevents accurate | | | assessment of diastolic function. Right Ventricle: The right | | | ventricle is normal in size and function. Left Atrium: The left | | | atrium is moderately enlarged. Right Atrium: The right atrium is | | | moderately enlarged. Aortic Valve: There is no evidence of aortic | | | regurgitation. Aortic Valve: There is no evidence of aortic stenosis. | | | Aortic Valve: The aortic valve is trileaflet. Aortic Valve: Aortic | | | valve is mildly thickened and calcified. Mitral Valve: | | | Fyhp-ne-mluwrqqh mitral regurgitation is present. Mitral Valve: No | | | evidence of MVP. Mitral Valve: Moderate mitral annular calcification | | | present. Tricuspid Valve: The tricuspid valve appears structurally | | | normal. Tricuspid Valve: Mild tricuspid regurgitation is present. | | | Tricuspid Valve: There is no evidence of pulmonary hypertension. | | | Tricuspid Valve: The right ventricular systolic pressure (pulmonary | | | artery systolic pressure), as measured by Doppler, is 33.28mmHg. | | | Pulmonic Valve: The pulmonic valve was not well visualized. | | | Pericardium: There is no pericardial effusion. IVC/Hepatic Veins: The | | | inferior vena cava is normal in size and collapses > 50 % with sniff, | | | indicating normal central venous pressures. Aorta: The aortic root, | | | ascending aorta and aortic arch are normal. Mass: No mass visualized | | | Thrombus: No clot visualized Thrombus: No vegetation visualized. | | | Septum: No ASD observed. Septum: No VSD observed. MEASUREMENTS | | | Ao asc: 3.09 cm Ao sinus: 2.[address] junct: | | | 2.62 cm IVC: 1.71 cm EDV(Teich): 135.60 ml IVSd: 0.86 | | | cm LVIDd: 5.30 cm LVPWd: 0.94 cm LVOT Area: 3.29 cm2 LVOT | | | Diam: 2.05 cm %FS: 23.03 % EF(Teich): 45.82 % ESV(Teich): | | | 73.46 ml LVIDs: 4.08 cm SV(Teich): 62.13 ml RV Major: | | | 6.73 cm RV Minor: 3.04 cm LVEF MOD A2C: 58.82 % SV MOD A2C: | | | 65.18 ml LVEF MOD A4C: 57.82 % SV MOD A4C: 70.55 ml EF | | | Biplane: 57.34 % LVEDV MOD BP: 122.21 ml LVESV MOD BP: | | | 52.13 ml LVEDV MOD A2C: 110.81 ml LVLd A2C: 7.05 cm LVEDV MOD | | | A4C: 122.01 ml LVLd A4C: 7.84 cm LVESV MOD A2C: 45.63 ml | | | LVLs A2C: 5.50 cm LVESV MOD A4C: 51.46 ml LVLs A4C: 6.48 cm | | | LAESV(A-L): 111.47 ml LAESV Index (A-L): 48.04 ml/m2 LAAs | | | A2C: 31.64 cm2 LAESV A-L A2C: 140.25 ml LALs A2C: 6.06 cm | | | LAAs A4C: 24.01 cm2 LAESV A-L A4C: 84.57 ml LALs A4C: 5.78 | | | cm RAAs: 21.90 cm2 RAESV A-L: 62.77 ml RAESV MOD: 60.06 ml | | | RALs: 6.48 cm TAPSE: 2.51 cm LVOT maxP.06 mmHg LVOT | | | meanP.68 mmHg LVSI Dopp: 23.82 ml/m2 LVSV Dopp: 55.28 | | | ml LVOT Vmax: 0.87 m/s LVOT Vmean: 0.60 m/s LVOT VTI: | | | 16.75 cm MV E Doroteo: 1.37 m/s MV DecT: 209.33 ms RAP: 5 mmHg | | | RVSP: 33.27 mmHg TR maxP.27 mmHg TR Vmax: 2.65 m/s | | | RV s': 0.10 m/s Health Occupations Instructor: Authenticated by: Lester Harrington | | | [place] Report Date/Time: 09-10-2018 19:15:39 | | + + + + + | Procedure Note | + + | Bhavin, Rad Conversion - 10/02/2018 2:08 PM PDT Patient Name: Gautam Bear of | | : 1940 Performing Physician: Lester Harrington | | [place] INDICATIONS | | -AFIB CONCLUSIONS 1. Overall left ventricular systolic function is normal with | | an EF between 55 - 60%.2. The right ventricle is normal in size and function.3. There | | is moderate bi-atrial enlargement.4. Dzzs-ft-xfpbvblf mitral regurgitation is present. | | FINDINGS--------ECG rhythm: Atrial fibrillation.Study: A 2-dimensional transthoracic | | echocardiogram with m-mode, spectral and color flow Doppler was perfomed at [facility].Study: | | This was a technically adequate study.Left Ventricle: Overall left ventricular systolic | | function is normal with an EF between 55 - 60%.Left Ventricle: The left ventricle cavity | | size is normal.Left Ventricle: Left ventricular wall thickness is normal.Left | | Ventricle: No regional wall motion abnormalities.Left Ventricle: Atrial fibrillation | | prevents accurate assessment of diastolic function.Right Ventricle: The right ventricle | | is normal in size and function.Left Atrium: The left atrium is moderately enlarged.Right | | Atrium: The right atrium is moderately enlarged.Aortic Valve: There is no evidence of | | aortic regurgitation.Aortic Valve: There is no evidence of aortic stenosis.Aortic Valve: | | The aortic valve is trileaflet.Aortic Valve: Aortic valve is mildly thickened and | | calcified.Mitral Valve: Kiom-dl-lhvcaynb mitral regurgitation is present.Mitral Valve: | | No evidence of MVP.Mitral Valve: Moderate mitral annular calcification present.Tricuspid | | Valve: The tricuspid valve appears structurally normal.Tricuspid Valve: Mild tricuspid | | regurgitation is present.Tricuspid Valve: There is no evidence of pulmonary | | hypertension.Tricuspid Valve: The right ventricular systolic pressure (pulmonary artery | | systolic pressure), as measured by Doppler, is 33.28mmHg.Pulmonic Valve: The pulmonic | | valve was not well visualized.Pericardium: There is no pericardial effusion.IVC/Hepatic | | Veins: The inferior vena cava is normal in size and collapses > 50 % with sniff, | | indicating normal central venous pressures.Aorta: The aortic root, ascending aorta and | | aortic arch are normal.Mass: No mass visualizedThrombus: No clot visualizedThrombus: No | | vegetation visualized.Septum: No ASD observed.Septum: No VSD observed. | | MEASUREMENTS Ao asc: 3.09 cmAo sinus: 2.[address] junct: 2.62 cmIVC: | | 1.71 cmEDV(Teich): 135.60 mlIVSd: 0.86 cmLVIDd: 5.30 cmLVPWd: 0.94 cmLVOT | | Area: 3.29 [id number] Diam: 2.05 cm%FS: 23.03 %EF(Teich): 45.82 %ESV(Teich): | | 73.46 mlLVIDs: 4.08 cmSV(Teich): 62.13 mlRV Major: 6.73 cmRV Minor: 3.04 cmLVEF | | MOD A2C: 58.82 %SV MOD A2C: 65.18 mlLVEF MOD A4C: 57.82 %SV MOD A4C: 70.55 mlEF | | Biplane: 57.34 %LVEDV MOD BP: 122.21 mlLVESV MOD BP: 52.13 mlLVEDV MOD A2C: | | 110.81 mlLVLd A2C: 7.05 cmLVEDV MOD A4C: 122.01 mlLVLd A4C: 7.84 cmLVESV MOD A2C: | | 45.63 mlLVLs A2C: 5.50 cmLVESV MOD A4C: 51.46 mlLVLs A4C: 6.48 cmLAESV(A-L): | | 111.47 mlLAESV Index (A-L): 48.04 ml/m2LAAs A2C: 31.64 [id number] A-L A2C: 140.25 | | mlLALs A2C: 6.06 cmLAAs A4C: 24.01 [id number] A-L A4C: 84.57 mlLALs A4C: 5.78 | | cmRAAs: 21.90 [id number] A-L: 62.77 mlRAESV MOD: 60.06 mlRALs: 6.48 cmTAPSE: | | 2.51 cmLVOT maxP.06 mmHgLVOT meanP.68 mmHgLVSI Dopp: 23.82 ml/m2LVSV Dopp: | | 55.28 mlLVOT Vmax: 0.87 m/sLVOT Vmean: 0.60 m/sLVOT VTI: 16.75 cmMV E Doroteo: | | 1.37 m/sMV DecT: 209.33 msRAP: 5 mmHgRVSP: 33.27 mmHgTR maxP.27 mmHgTR | | Vmax: 2.65 m/sRV s': 0.10 m/s Health Occupations Instructor: ADMAuthenticated by: Lester Harrington | | [place]Report Date/Time: 09-10-2018 19:15:39 IMPRESSION: 1. Overall left ventricular | | systolic function is normal with an EF between 55 - 60%.2. The right ventricle is normal | | in size and function.3. There is moderate bi-atrial enlargement.4. Ndkr-of-ehbgyxvd | | mitral regurgitation is present. | |Mass: No mass visualized | |Thrombus: No clot visualized | |Thrombus: No vegetation visualized. | |Septum: No ASD observed. | |Septum: No VSD observed. | | | |MEASUREMENTS | | | |Ao asc: 3.09 cm | |Ao sinus: 2.99 cm | |Ao st junct: 2.62 cm | |IVC: 1.71 cm | |EDV(Teich): 135.60 ml | |IVSd: 0.86 cm | |LVIDd: 5.30 cm | |LVPWd: 0.94 cm | |LVOT Area: 3.29 cm2 | |LVOT Diam: 2.05 cm | |%FS: 23.03 % | |EF(Teich): 45.82 % | |ESV(Teich): 73.46 ml | |LVIDs: 4.08 cm | |SV(Teich): 62.13 ml | |RV Major: 6.73 cm | |RV Minor: 3.04 cm | |LVEF MOD A2C: 58.82 % | |SV MOD A2C: 65.18 ml | |LVEF MOD A4C: 57.82 % | |SV MOD A4C: 70.55 ml | |EF Biplane: 57.34 % | |LVEDV MOD BP: 122.21 ml | |LVESV MOD BP: 52.13 ml | |LVEDV MOD A2C: 110.81 ml | |LVLd A2C: 7.05 cm | |LVEDV MOD A4C: 122.01 ml | |LVLd A4C: 7.84 cm | |LVESV MOD A2C: 45.63 ml | |LVLs A2C: 5.50 cm | |LVESV MOD A4C: 51.46 ml | |LVLs A4C: 6.48 cm | |LAESV(A-L): 111.47 ml | |LAESV Index (A-L): 48.04 ml/m2 | |LAAs A2C: 31.64 cm2 | |LAESV A-L A2C: 140.25 ml | |LALs A2C: 6.06 cm | |LAAs A4C: 24.01 cm2 | |LAESV A-L A4C: 84.57 ml | |LALs A4C: 5.78 cm | |RAAs: 21.90 cm2 | |RAESV A-L: 62.77 ml | |RAESV MOD: 60.06 ml | |RALs: 6.48 cm | |TAPSE: 2.51 cm | |LVOT maxP.06 mmHg | |LVOT meanP.68 mmHg | |LVSI Dopp: 23.82 ml/m2 | |LVSV Dopp: 55.28 ml | |LVOT Vmax: 0.87 m/s | |LVOT Vmean: 0.60 m/s | |LVOT VTI: 16.75 cm | |MV E Doroteo: 1.37 m/s | |MV DecT: 209.33 ms | |RAP: 5 mmHg | |RVSP: 33.27 mmHg | |TR maxP.27 mmHg | |TR Vmax: 2.65 m/s | |RV s': 0.10 m/s | | | |Health Occupations Instructor: ADM | |Authenticated by: Lester Akins | |Report Date/Time: 09-10-2018 19:15:39 | | | |IMPRESSION: | |1. Overall left ventricular systolic function is normal with an EF between 55 - 60%. | |2. The right ventricle is normal in size and function. | |3. There is moderate bi-atrial enlargement. | |4. Qgqo-el-btnwqjuh mitral regurgitation is present. | + + documented in this encounter Visit Diagnoses Not on filedocumented in this encounter"
--- OUTSIDE RECORDS SUMMARY | ~2019-07-17 | XMS | Encounter Summary ---
Demographics + + + | Address | [address] | | | [place] [address] | + + + | Home Phone | | + + + | Preferred Language | Unknown | + + + | Marital Status | | + + + | Hinduism Affiliation | Unknown | + + + | Race | Unknown | + + + | Ethnic Group | Unknown | + + + Author + + + | Author | [facility] | | | and [place] | + + + | Organization | [facility] | | | and [place] | + + + | Address | Unknown | + + + | Phone | Unavailable | + + + Support + + + + + | Name | Relationship | Address | Phone | + + + + + | Veronica Anderson | ECON | [place] | | | | | [address] | | + + + + + | Beatrice Paulson | ECON | [address] | | | | | [place] | | | | | [address] | | + + + + + Care Team Providers + +------+ + | Care Case Hardener Name | Role | Phone | + +------+ + | Venkata Pettit MD | PCP | | + +------+ + Reason for Visit + + + | Reason | Comments | + + + | Follow-up | 6 Month PO | + + + Encounter Details +--------+---------+ + + + | Date | Type | Department | Care Team | Description | +--------+---------+ + + + | 07/17/ | Office | [facility] | Felipe Hernandez, | Spondylolisthesis of | | 2013 | Visit | NEUROSURGERY [address] | PA-C [address] | lumbar region | | | | [address] | [place], [place] | (Primary Dx); S/P | | | | [place], [place] | [address] | lumbar fusion | | | | [address] | | | | | | [phone] | | | +--------+---------+ + + + [...] + + + | Blood Pressure | 138/68 | 07/17/2013 10:50 AM | | | | | PDT | | + + + + + | Pulse | 62 | 07/17/2013 10:50 AM | | | | | PDT | | + + + + + | Temperature | - | - | | + + + + + | Respiratory Rate | 18 | 07/17/2013 10:50 AM | | | | | PDT | | + + + + + | Oxygen Saturation | - | - | | + + + + + | Inhaled Oxygen | - | - | | | Concentration | | | | + + + + + | Weight | 112.9 kg (249 lb) | 07/17/2013 10:50 AM | | | | | PDT | | + + + + + | Height | 172.7 cm (5' 8") | 07/17/2013 10:50 AM | | | | | PDT | | + + + + + | Body Mass Index | 37.86 | 07/17/2013 10:50 AM | | | | | PDT | | + + + + + documented in this encounter Patient Instructions Patient Instructions Felipe Hernandez PA-C - 07/17/2013 10:55 AM PDTLumbar x-rays show st able hardware fixation. documented in this encounter Progress Notes Felipe Hernandez PA-C - 07/17/2013 10:51 AM PDT Felipe Hernandez PA-C [address] [facility] [address] [place] [address] FAX: NEUROSURGERY SURGICAL FOLLOW-UP CHIEF COMPLAINT: Chief Complaint Patient presents with Follow-up 6 Month PO HISTORY OF PRESENT ILLNESS: The patient is a 72 y.o. female that had an XLIF L2-3 and L3-4 , with a TLIF at L4-5, and posterolateral fusion L1-[address] Smith for back pain and leg w eakness around 6 months ago. She returns and overall is doing well. Her back pain from bef ore surgery and surgical pain is resolved. Her leg strength is improving significantly, efra nks to PT. The patient has been walking as much as possible. She is not taking pain medica tions at this point. The patient has had [...] not use illicit drugs. INTERIM PHYSICAL EXAMINATION: Height 1.727 m (5' 8"). There is no weight on file to calculate BMI. GENERAL: Kassie Bear is in no acute distress with unlabored respirations. SPINE: The patient s incisions are healing well without drainage, significant erythema, o r discharge EXTREMITIES: No lower extremity edema. NEUROLOGICAL EXAMINATION: MENTAL STATUS: The patient is awake, alert, and oriented. She follows simple and complex commands MOTOR EXAM: Motor strength is 5/5. This is improved from the preoperative exam. [...] at this time. ASSESSMENT: S/P L1-5 fusion: No diagnosis found. Past Medical History Diagnosis Date Sacroiliitis (HCC) BACK PAIN, LUMBAR Spinal stenosis Trochanteric bursitis Degenerative disc disease Obesity Hypertension Hypercholesterolemia Hx of spinal fusion Myofascial pain syndrome Paresthesia Carpal tunnel syndrome PLAN: Overall, the patient is doing well. Her strength is improving with PT. I advised her to dann tian with PT, it has improved her strength significantly and will continue to facilitate her convalescing. Continue with the bone stimulator. I am hoping to see improvement over the coming weeks to months and plan to continue to foll ow this patient. I spent 25 minutes in visit with Kassie Bear today with the majority of time spent co unselling the patient on her recovery and coordinating her future care. The patient will fo llow-up prn. ELECTRONICALLY SIGNED BY: Felipe Hernandez PA-C, 07/17/2013 10:51 documented in thi s encounter Plan of [...] [place] | | | | | | [address] | | | | | | | | +--------+---------+ + + + documented as of this encounter Visit Diagnoses + + | Diagnosis | + + | Spondylolisthesis of lumbar region - Primary Acquired spondylolisthesis | + + | S/P lumbar fusion Arthrodesis status | + + documented in this encounter
--- OUTSIDE RECORDS SUMMARY | ~2019-07-17 | XMS | Encounter Summary ---
Demographics + + + | Address | [address] | | | [place] [address] | + + + | Home Phone | | + + + | Preferred Language | Unknown | + + + | Marital Status | | + + + | Gnosticist Affiliation | Unknown | + + + | Race | Unknown | + + + | Ethnic Group | Unknown | + + + Author + + + | Author | [facility] | | | and [place] | + + + | Organization | [facility] | | | and [place] | + + + | Address | Unknown | + + + | Phone | Unavailable | + + + Support + + + + + | Name | Relationship | Address | Phone | + + + + + | Veronica Anderson | ECON | [place] | | | | | [address] | | + + + + + | Beatrice Paulson | ECON | [address] | | | | | [place] | | | | | [address] | | + + + + + Care Team Providers + +------+ + | Care Laboratory Monitor Name | Role | Phone | + +------+ + | Indiana Vail MD | PCP | | + +------+ + Reason for Referral Evaluate & Treat (Routine) +--------+ + + + + + | Status | Reason | Specialty | Diagnoses / | Referred By | Referred To | | | | | Procedures | Contact | Contact | +--------+ + + + + + | Closed | Specialty | Anticoagulati | Diagnoses | Grisel | [facility] | | | Services | on | Persistent | DO Lori | HOSPITAL | | | Required | | atrial | [address] | [address] | | | | | fibrillation | [address] | [facility] [address] | | | | | ([facility]) | [address] | [facility] | | | | | | [address] | [address] | | | | | | [address] | [place] | | | | | | Phone: | [phone] | | | | | | [phone] | Phone: | | | | | | Fax: | [phone] | | | | | | [phone] | Fax: | | | | | | | [phone] | +--------+ + + + + + Reason for Visit + + + | Reason | Comments | + + + | Follow-up | 2 month / holter / echo | + + + Encounter Details +--------+---------+ + + + | Date | Type | Department | Care Team | Description | +--------+---------+ + + + | 11/06/ | Office | [facility] | Lori Recinos DO | Persistent atrial | | 2019 | Visit | CARDIOLOGY CHRISTOPHER | [address] | fibrillation (HCC) | | | | [address] | [place], [place] | (Primary Dx); | | | | [address] [place] [address] | [id number] | Persistent atrial | | | | [place] | | fibrillation; | | | | [address] | | Hypercholesterolemia | | | | [phone] | | ; Hypertension, | | | | | | unspecified type | +--------+---------+ + + + Social History [...] + + + | Blood Pressure | 120/70 | 11/06/2018 12:55 PM | | | | | PDT | | + + + + + | Pulse | 81 | 11/06/2018 12:55 PM | | | | | PDT | | + + + + + | Temperature | - | - | | + + + + + | Respiratory Rate | - | - | | + + + + + | Oxygen Saturation | 95% | 11/06/2018 12:55 PM | | | | | PDT | | + + + + + | Inhaled Oxygen | - | - | | | Concentration | | | | + + + + + | Weight | 126.1 kg (278 lb) | 11/06/2018 12:55 PM | | | | | PDT | | + + + + + | Height | 172.7 cm (5' 8") | 11/06/2018 12:55 PM | | | | | PDT | | + + + + + | Body Mass Index | 42.27 | 11/06/2018 12:55 PM | | | | | PDT | | + + + + + documented in this encounter Patient Instructions Patient Instructions Lori Recinos DO - 11/06/2018 12:40 PM PDT- I have sent a referral fo r you to establish with the INR clinic. - Please obtain blood work today to check your INR. - After you establish with the INR clinic, start taking amiodarone. Please let them know yo u are starting this medication. - Start amiodarone 200mg by mouth three times daily for one week, then down to twice daily for one week, then down to once daily. - Once your INR is therapeutic (2-3) for 3 consecutive weeks, we will plan for a cardiovers ion. documented in this encounter Progress Notes Lori Recinos DO - 11/06/2018 12:40 PM PDT [facility] Cardiology Cardiology Follow Up Note Reason for Consultation: dyspnea Requesting Physician: Indiana Vail History Obtained From: patient HISTORY OF PRESENT ILLNESS: Cardiac problem list Paroxysmal atrial fibrillation Hypertension Hyperlipidemia PVD Noncardiac problem list Osteoarthritis OA DDD The patient is a 77-year-old female who presents to the cardiology office for initial consu ltation regarding dyspnea on exertion. The patient reports that she first started noticing episodes of dyspnea since . She noticed that every time she lays down, she sujata me dyspneic. These symptoms would resolve if she sat up or got out of bed. Through the win ter, she would notice episodes periodically but they did gradually improve. Over the past ont, she has not noticed any episodes of orthopnea at all. 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 She tries to do something physical everyday. She walks for 40 to 45 minutes , Saturday and Saturday. She also goes to the [employer] for 30 to 45 minutes on off days. She d enies any change in her exercise tolerance recently. She denies any exertional chest pain o r shortness of breath. She denies any lower extremity swelling. On EKG today, she was note d to be in atrial fibrillation with her heart rate of 82 beats per minute. This is a new di agnosis of atrial fibrillation for this patient. She denies any episodes of palpitation. S he denies any lightheadedness, dizziness or syncope. Interim history I last saw the patient on 08/28/2018. At that time, she was found to be in new onset atria l fibrillation. She was started on Eliquis 5 mg by mouth twice daily. I obtained a complet e echocardiogram and a 24-hour Holter monitor. Her Holter monitor demonstrated atrial fibri llation with a 100 percent burden. Her average heart rate was 100 beats per minute, ranging from 71-153 beats per minute. There were no significant pauses noted. Her echocardiogram was done on 09/10/2018 and demonstrated a normal left ventricular ejection fraction. She h ad normal right ventricular size and function, moderate biatrial enlargement, and mild to mo derate mitral regurgitation. Since we last saw each other, she reports that she has had per sistent symptoms of dyspnea on exertion and generalized fatigue. We discussed restore beatrice l sinus rhythm to see if she gets alleviation of these symptoms. She denies any lower extr emity swelling, orthopnea, PND. She denies any recent chest pains. 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 She called t he office and I switched her over to Coumadin and referred her to the INR Clinic. She has b een on Coumadin 5 mg by mouth daily since that time. The Coumadin clinic never called to ar range her followup and she never called and enquired about it. We discussed the importance of establishing with the Coumadin clinic. Review of Systems Constitutional: Negative for fatigue. HENT: Negative for nosebleeds. Eyes: Negative for visual disturbance. Respiratory: Negative for cough and shortness of breath. Cardiovascular: see HPI Gastrointestinal: Negative for nausea, vomiting, abdominal pain and blood in stool. Genitourinary: Negative for hematuria or dysuria. Musculoskeletal: Negative for myalgias, positive for back pain and arthralgias. Skin: Negative for color change. Neurological: Negative for dizziness, syncope and numbness. Hematological: Does not bruise/bleed easily. Psychiatric/Behavioral: The patient is not nervous/anxious. PAST MEDICAL & SURGICAL HISTORY Past Medical History Diagnosis Date Arthralgia Hyperlipidemia Hypertension Neuromyopathy (HCC) Other chronic pain Past Surgical History Procedure Laterality Date CATARACT EXTRACTION Bilateral CHOLECYSTECTOMY COLONOSCOPY ENDOMETRIAL BIOPSY EYE SURGERY lasered LUMBAR FUSION NECK SURGERY REPLACEMENT TOTAL KNEE SPINE SURGERY squamous cell carcinoma removed MEDICATIONS Current Outpatient Medications on File Prior to Visit Medication Sig Dispense Refill atenolol (TENORMIN) 50 mg tablet Take 50 [...] by mouth Daily. No current facility-administered medications on file prior to visit. Allergies Not on File FAMILY HISTORY Family History Problem Relation Age of Onset No Known Problems Mother SOCIAL HISTORY Social History Social History Marital status: Spouse name: N/A Number of children: N/A Years of education: N/A Occupational History Not on file. Social History Main Topics Smoking status: Never Smoker Smokeless tobacco: Never Used Alcohol use Yes Comment: GLASS OF WINE WITH FRIENDS Drug use: No Sexual activity: Not on file Other Topics Concern Not on file Social History Narrative No narrative on file PHYSICAL EXAM Vitals: 11/06/18 1255 BP: 120/70 Pulse: 81 SpO2: 95% Weight: 126.1 kg (278 lb) Height: 1.727 m (5' 8") Physical Exam GENERAL: Well developed, well nourished, in no distress. Appears approximately stated age . HEENT: Normocephalic, atraumatic. EYES: PERRL, sclerae anicteric, no xanthelsasmas MOUTH: Oral mucosae moist, dentition adequate, no lesions noted NECK: No JVD, lymphadenopathy, thyromegaly, bruits. Carotid pulses are 2+ bilaterally LUNGS: Clear bilaterally, with no rales, rhonchi or wheezing noted, respirations unlabored HEART: Nondisplaced PMI, irreg irreg, S1, S2 normal. No murmurs, rubs or gallops noted. ABDOMEN: Soft, nontender, no organomegaly, masses or bruits. Bowel sounds are normal in a ll 4 quadrants. EXTREMITIES: No edema. Radial pulses 2+ bilaterally. DP and PT pulses are 2+ bilaterally. SKIN: Warm and dry, capillary refill is normal, no lesions. NEUROLOGIC: Awake, alert and oriented x 3. No focal motor deficits. PSYCHIATRIC: Appropriate, affect appears normal DATA Most recent blood work reviewed including sodium 138, potassium 4.7, chloride 104, carbon d ioxide 24, glucose 108, BUN 17, creatinine 0.61, AST 20, ALT 17, alkaline phosphatase 103, t otal bilirubin 0.5, total protein 7.1, white blood cell count 7.9, hemoglobin 15, hematocrit 45, platelet count 257, TSH 1.98, hemoglobin A1c 5.8, EK08/28/18 ordered and reviewed by myself atrial fibrillation 82BPM Last Echo: 09/10/18 CONCLUSIONS 1. Overall left ventricular systolic function is normal with an EF between 55 - 60%. 2. The right ventricle is normal in size and function. 3. There is moderate bi-atrial enlargement. 4. Umud-yd-[id number] mitral regurgitation is present. Last stress test: Last cath: Carotid US: CTA neck 03/2012 IMPRESSION: 1. THERE IS GROSS PATENCY INVOLVING THE BILATERAL CAROTID AND VERTEBROBASILAR SYSTEMS. ABOU T 4% STENOSIS IS SEEN IN THE PROXIMAL RIGHT INTERNAL CAROTID ARTERY. THERE IS ABOUT 45% STENOSIS OF THE LEFT PROXIMAL INTERNAL CAROTID ARTERY. AAA screening: Lower extremity US: OTHERS: 09/04/18 24 hour monitor Procedure: Continuous ambulatory ECG for the duration of 24 hours. During this recording, the underlying rhythm is Atrial fibrillation, the lowest heart rate was 71 BPM, the highest heart rate 153 BPM, averaging 100 BPM. During this recording interval, 0 PACs were recorded . Also, 0 PVCs were recorded. No AV conduction abnormalities observed. No ischemia detect ed. The heart rate trends did demonstrate a normal circadian pattern. In the patient's scarlett ry, no symptoms were reported. ASSESSMENT & PLAN 1. Paroxysmal atrial fibrillation 2. Hypertension 3. Hyperlipidemia 4. PVD 5. Osteoarthritis 6. OA 7. DDD - The patient is a 77yo female who presents to the cardiology office for followup. At last visit, she is found to be in atrial fibrillation. Her [id number] is 4. We discussed the need for anticoagulation including the risks and benefits. She had a recent echo which demonstra melanie moderate bi atrial enlargement and normal LV EF. Recent monitor demonstrated a 100% tay en of afib with an average HR of 100BPM. She reports persistent symptoms of MILLS since we las t saw eachother. We discussed trying to get her back into sinus rhythm to see if she gets sy mptom relief. Given how long she has been in afib and atrial enlargement, she will likely re quire antiarrhythmic to restore and maintain NSR. - Continue coumadin 5mg po daily, she is to establish with [facility] coumadin clinic next week. Once she is therapeutic on her INR for 3 weeks, will arrange cardioversion. - after she establishes with the coumadin clinic, start amiodarone 200mg po tid for one wee k then bid for one week then daily thereafter - Continue atenolol 50mg po daily - continue pravastatin 20mg po daily - follow up in 1 month post cardioversion Thank you for allowing me to participate in the care of this patient. Primary Care Physician: INDIANA Rceinos DO documented in this enco unter Plan of Treatment +--------+---------+ + + + | Date | Type | Specialty | Care Team | Description | +--------+---------+ + + + | 10/06/ | Office | Cardiology | Elvin Jamil | | | 2019 | Visit | | MD [address] | | | | | | [facility] | | | | | | [place] | | | | | | [id number] | | | | | | | | +--------+---------+ + + + + +------+--------+ + + | Name | Type | Priori | Associated Diagnoses | Order Schedule | | | | ty | | | + +------+--------+ + + | Protime INR | Lab | Routin | Persistent atrial | 1 Occurrences | | | | e | fibrillation (HCC) | starting 11/06/2018 | | | | | | until 11/07/2019 | + +------+--------+ + + | Protime INR | Lab | Routin | Persistent atrial | Expected: | | | | e | fibrillation (HCC) | 11/06/2018, Expires: | | | | | | 11/07/2019 | + +------+--------+ + + + + +--------+ + + | Name | Type | Priori | Associated Diagnoses | Order Schedule | | | | ty | | | + + +--------+ + + | Ambulatory Referral | Outpatient | Routin | Persistent atrial | Ordered: 11/06/2018 | | to [facility] | Referral | e | fibrillation (HCC) | | | Anticoagulation | | | | | | Monitoring | | | | | + + +--------+ + + documented as of this encounter Visit Diagnoses + + | Diagnosis | + + | Persistent atrial fibrillation - Primary Atrial fibrillation | + + | Hypercholesterolemia Pure hypercholesterolemia | + + | Hypertension, unspecified type | + + documented in this encounter
--- OUTSIDE RECORDS SUMMARY | ~2019-07-17 | XMS | Encounter Summary ---
Demographics + + + | Address | [address] | | | [place] [address] | + + + | Home Phone [...] Organization | [facility] [...] [place] | | | | | [address] | | + + + + + | Beatrice Paulson | ECON | [address] | | | | | [place] | | | | | [address] | | + + + + + Care Team Providers + +------+ + | Care Server Developer Name | Role | Phone | + +------+ + | Indiana Vail MD | PCP | | + +------+ + Reason for Referral Evaluate & Treat (Routine) + + + + + + + | Status | Reason | Specialty | Diagnoses / | Referred By | Referred To | | | | | Procedures | Contact | Contact | + + + + + + + | Authorized | Specialty | Cardiology | Diagnoses | Grisel, | Reyna, | | | Services | | Other | DO Lori | Elvin | | | Required | | persistent | [address] | MD Reji | | | | | atrial | [address] | [address] | | | | | fibrillation | [address] | [address] | | | | | ([facility]) | [place], [place] | [facility] | | | | | | [address] | [place] [address] | | | | | | Phone: | Phone: | | | | | | [phone] | [phone] | | | | | | Fax: | Fax: | | | | | | [phone] | [phone] | + + + + + + + Reason for Visit + + + | Reason | Comments | + + + | Follow-up | cardioversion | + + + Evaluate & Treat (Routine) +--------+--------+ + + + + | Status | Reason | Specialty | Diagnoses / | Referred By | Referred To | | | | | Procedures | Contact | Contact | +--------+--------+ + + + + | Closed | | | Diagnoses | Genna, | Grisel, | | | | | Dyspnea, | Indiana Garg, | DO Lori | | | | | unspecified | MD [address] | [address] | | | | | Procedures | [address] | [address] | | | | | CONSULT | [place], | [place], [place] | | | | | | [place] [address] | [address] Phone: | | | | | | Phone: | [phone] | | | | | | [phone] | Fax: | | | | | | Fax: | [phone] | | | | | | [phone] | | +--------+--------+ + + + + Encounter Details +--------+---------+ + + + | Date | Type | Department | Care Team | Description | +--------+---------+ + + + | 12/31/ | Office | [facility] | Lori Recinos DO | Other persistent | | 2019 | Visit | CARDIOLOGY TERA | [address] | atrial fibrillation | | | | [address] | [place], [place] | (HCC) (Primary Dx); | | | | [address] [place] | [address] | Persistent atrial | | | | [address] | | fibrillation ([facility]); | | | | [phone] | | Hypertension, | | | | | | [...] + + + | Blood Pressure | 130/64 | 12/31/2018 3:25 PM | | | | | PST | | + + + + + | Pulse | 68 | 12/31/2018 3:25 PM | | | | | PST | | + + + + + | Temperature | - | - | | + + + + + | Respiratory Rate | - | - | | + + + + + | Oxygen Saturation | 99% | 12/31/2018 3:25 PM | | | | | PST | | + + + + + | Inhaled Oxygen | - | - | | | Concentration | | | | + + + + + | Weight | 127.9 kg (282 lb) | 12/31/2018 3:25 PM | | | | | PST | | + + + + + | Height | 172.7 cm (5' 8") | 12/31/2018 3:25 PM | | | | | PST | | + + + + + | Body Mass Index | 42.88 | 12/31/2018 3:25 PM | | | | | PST | | + + + + + documented in this encounter Progress Notes Lori Recinos DO - 12/31/2018 3:20 PM PST [facility] Cardiology Cardiology Follow Up Note Reason for [...] they did gradually improve. Over the past m ont, she has not noticed any episodes [...] he denies any lightheadedness, dizziness or syncope. I saw the patient on 08/28/2018. At that time, she was found to be in new onset atrial fib rillation. She was started on Eliquis 5 mg by mouth twice daily. I obtained a complete ech ocardiogram and a 24-hour Holter monitor. Her Holter monitor demonstrated atrial fibrillati on with a 100 percent burden. Her average heart rate was 100 beats per minute, ranging from 71-153 beats per minute. There were no significant pauses noted. Her echocardiogram was done on 09/10/2018 and demonstrated a normal left ventricular ejection fraction. She had no rmal right ventricular size and function, moderate biatrial enlargement, and mild to moderat e mitral regurgitation. Since we last saw each other, she reports that she has had persiste nt symptoms of dyspnea on exertion and generalized fatigue. We discussed restore normal sin us rhythm to see if she gets alleviation of these symptoms. She denies any lower extremity swelling, orthopnea, PND. She denies any recent chest pains. 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 Interim History: I last saw the patient in the office on 11/06/2018. At that time, we started the amiodaron e taper and continued the patient on Coumadin for anticoagulation. After she was therapeuti c for 3 weeks, she underwent an electrical cardioversion on 12/22/2018. Her cardioversion w as initially successful at restoring normal sinus rhythm. The patient reports that she felt significant symptom improvement for 2-3 days after the procedure; however, after this she noticed again a progressive decline in her exercise capacity. She also noticed some shortne ss of breath that was worse at nighttime as well as diuresis. I believe that she went back into AFib about 3 days after her cardioversion. She continues anticoagulation without any b leeding issues. Review of Systems Constitutional: Negative for fatigue. [...] Prior to Visit Medication Sig Dispense Refill amiodarone (PACERONE) 200 [...] No narrative on file PHYSICAL EXAM Vitals: 12/31/18 1525 BP: 130/64 Pulse: 68 SpO2: 99% Weight: 127.9 kg (282 lb) Height: 1.727 m (5' 8") Physical [...] and reviewed by myself atrial fibrillation 82BPM 12/31/18 ordered and reviewed by myself atrial fibrillation 84 bpm Last Echo: 09/10/18 CONCLUSIONS 1. Overall left ventricular systolic function is normal with an EF between 55 - 60%. 2. The right ventricle is normal in size and function. 3. There is moderate bi-atrial enlargement. 4. Abwj-hr-itrvavoj mitral regurgitation is present. Last stress test: [...] to the cardiology office for followup. At initi al visit, she is found to be in atrial fibrillation. Her [id number] is 4. She had a recent e cho which demonstrated moderate bi atrial enlargement and normal LV EF. Recent monitor demon strated a 100% burden of afib with an average HR of 100BPM. She reports persistent symptoms of MILLS. She was started on anticoagulation with Eliquis which she was unable to afford and was subsequently switched to Coumadin. After 3 weeks of anticoagulation, she underwent elec trical cardioversion on 12/22/2018 which was successful at restoring normal sinus rhythm and the patient did report symptom improvement. Unfortunately, a few days after her cardiovers ion she flipped back into atrial fibrillation and is in A. fib today. We will plan to refer the patient to EP for consideration of redo cardioversion once more amiodarone therapy is o n board versus possible ablation. - Continue coumadin with follow up at the INR clinic. - Continue amiodarone 200 mg by mouth daily - Continue atenolol 50mg po daily - continue pravastatin 20mg po daily - will place ambulatory referral to EP - follow up in 3 months Thank you for allowing me to participate in the care of this patient. Primary Care Physician: INDIANA Recinos DO documented in this enco unter Plan of Treatment +--------+---------+ + + + | Date | Type | Specialty | Care Team | Description | +--------+---------+ + + + | 10/06/ | Office | Cardiology | Elvin Jamil | | | 2019 | Visit | | MD [address] | | | | | | [facility] | | | | | | [place] | | | | | | [address] | | | | | | | | +--------+---------+ + + + + + +--------+ + + | Name | Type | Priori | Associated Diagnoses | Order Schedule | | | | ty | | | + + +--------+ + + | Ambulatory referral | Outpatient | Routin | Other persistent | Ordered: 12/31/2018 | | to [facility] | Referral | e | atrial fibrillation | | | Electrophysiology | | | (HCC) | | | REYNA | | | | | + + +--------+ + + documented as of this encounter Procedures + +--------+ + + + | Procedure Name | Priori | Date/Time | Associated Diagnosis | Comments | | | ty | | | | + +--------+ + + + | ECG 12 LEAD | Routin | 12/31/2018 | Persistent atrial | Results for this | | | e | 3:29 PM | fibrillation (HCC) | procedure are in the | | | | PST | | results section. | + +--------+ + + + documented in this encounter Results ECG 12 lead (12/31/2018 3:29 PM PST) + + + + + + | Component | Value | Ref Range | Performed | Pathologist | | | | | At | Signature | + + + + + + | VENTRICULAR | 84 | BPM | [facility] | | | RATE EKG | | | | | + + + + + + | ATRIAL RATE | 73 | BPM | [facility] | | + + + + + + | QRS | 96 | ms | [facility] | | | DURATION | | | | | + + + + + + | Q-T | 406 | ms | [facility] | | | INTERVAL | | | | | + + + + + + | Q-T | 479 | ms | [facility] | | | INTERVAL | | | | | | (CORRECTED) | | | | | + + + + + + | QRS AXIS | 44 | degrees | [facility] | | + + + + + + | T AXIS | 18 | degrees | [facility] | | + + + + + + | INTERPRETAT | Please refer to | | CARLOS ELLIOTT | | | ION TEXT | Providers office visit | | | | | | note for Providers | | | | | | Interpretation.Confirmed | | | | | | by [facility] Read Only, | | | | | | [facility] Fernando ([id number]), | | | | | | editorial writer Noe Lozano | | | | | | ([id number]) on 12/31/2018 | | | | | | 4:25:07 PM | | | | + + [...] + | Other persistent atrial fibrillation (HCC) - Primary | + + | Persistent atrial fibrillation (HCC) Atrial fibrillation | + + | Hypertension, unspecified type | + + documented in this encounter
--- OUTSIDE RECORDS SUMMARY | ~2019-07-17 | XMS | Encounter Summary ---
Demographics + + + | Address | [address] | | | [place] [address] | + + + | Home Phone | | + + + | Preferred Language | Unknown | + + + | Marital Status | | + + + | Taoist Affiliation | Unknown | + + + [...] [place] | | | | | [address] | | + + + + + | Beatrice Paulson | ECON | [address] | | | | | [place] | | | | | [address] | | + + + + + Care Team Providers + +------+ + | Care Haul Driver Name | Role | Phone | + +------+ + | Parvez Vail MD | PCP | | + +------+ + Encounter Details +--------+ + + + + | Date | Type | Department | Care Team | Description | +--------+ + + + + | 03/11/ | Telephone | [facility] | Lisa Nash, | | | 2019 | | [facility] | RN | | | | | [address] | | | | | | [place] | | | | | | [address] | | | | | | [phone] | | | +--------+ + + + [...] [address] | | | | | | [facility] | | | | | | [place] | | | | | | [address] | | | | | | | | +--------+---------+ + + + documented as of this encounter Visit Diagnoses Not on filedocumented in this encounter"
--- OUTSIDE RECORDS SUMMARY | ~2019-07-17 | XMS | Encounter Summary ---
Demographics + + + | Address | [address] | | | [place] [address] | + + + | Home Phone | | + + + | Preferred Language | Unknown | + + + | Marital Status | | + + + | Methodist Affiliation | Unknown | + + + | Race | Unknown | + + + | Ethnic Group | Unknown | + + + Author + + + | Author | [facility] | | | and [place] | + + + | Organization | [facility] | | | and [place] | + + + | Address | Unknown | + + + | Phone | Unavailable | + + + Support + + + + + | Name | Relationship | Address | Phone | + + + + + | Veronica Anderson | ECON | [place] | | | | | [address] | | + + + + + | Beatrice Paulson | ECON | [address] | | | | | [place] | | | | | [address] | | + + + + + Care Team Providers + +------+ + | Care Overhead Distribution Engineer Name | Role | Phone | + [...] lumbar | MD [address] | | | | | spinal | [address] | [address] [place] | | | | | fusion | [place], | [place], [place] | | | | | Bilateral | [place] [address] | [address] | | | | | leg weakness | Phone: | Phone: | | | | | Procedures | [phone] | [phone] | | | | | MRI Lumbar | [phone] Fax: | Fax: | | | | | Spine w wo | | [phone] | | | | | Contrast | [phone] | | +--------+--------+ + + + + Encounter Details +--------+ + + + + | Date | Type | Department | Care Team | Description | +--------+ + + + + | 01/30/ | Hospital | [facility] | Justen Ribera | Status post lumbar | | 2011 - | Encounter | MED CTR XRAY [address] | F, [address] | spinal fusion; | | | | [address] [place] | [address] [place] | Bilateral leg | | 02/01/ | | [place] [address] | [id number] | weakness | | 2011 | | [phone] | | | | | | [...] + + + +---------+ + + | Alpha-Lipoic Acid | | | 0 | 10/26/19 | | | 300 MG TABS | | | | 12 | 3 | + + + +---------+ + + | atenolol | Take 25 mg by mouth | | 0 | 10/26/19 | | | (TENORMIN) 25 mg | Daily. | | | 12 | 3 | | tablet | | | | | | + + + +---------+ + + | atenolol | | | 0 | 10/26/19 | | | (TENORMIN) 25 mg | | | | 12 | 3 | | tablet | | | | | | + + + +---------+ + + | Calcium-Vitamin | twice daily | | 0 | 10/26/19 | | | D-Vitamin K (CALCIUM | | | | 12 | 3 | | + D + K) 750-500-40 | | | | | | | MG-UNT-MCG TABS | | | | | | + + + +---------+ + + | Cyanocobalamin | TABS-500 mcg. | | 0 | 10/26/19 | | | (B-12 PO) | | | | 12 | 3 | + + + +---------+ + + | diclofenac | Take 75 mg by mouth | | 0 | 10/26/19 | | | (VOLTAREN) 75 mg EC | Daily. | | | 12 | 3 | | tablet | | | | | | + + + +---------+ + + | | 75 TABS | | 0 | 10/26/19 | | | Diclofenac-Misoprost | | | | 12 | 3 | | ol (ARTHROTEC PO) | | | | | | + + + +---------+ + + | Magnesium 250 MG | | | 0 | 10/26/19 | | | TABS | | | | 12 | 3 | + + + +---------+ + + | [place]-3 Fatty | 1200 mg daily | | 0 | 10/26/19 | | | Acids (FISH OIL) 300 | | | | 12 | 3 | | MG CAPS | | | | | | + + + +---------+ + + | Rosuvastatin | Take 5 mg by mouth | | 0 | 06/28/19 | | | Calcium (CRESTOR PO) | Daily. | | | 12 | 3 | + + + +---------+ + + | Rosuvastatin | TABS | | 0 | 06/28/19 | | | Calcium (CRESTOR PO) | | | | 12 | 3 | + + + +---------+ + + documented as of this encounter Plan of Treatment +--------+---------+ + + + | Date | Type | Specialty | Care Team | Description | +--------+---------+ + + + | 08/26/ | Office | Cardiology | Elvin Jamil | | | 2019 | Visit | | MD [address] | | | | | | [facility] | | | | | | [place] | | | | | | [address] | | | | | | | | +--------+---------+ + + + documented as of this encounter Procedures + +--------+ + + + | Procedure Name | Priori | Date/Time | Associated Diagnosis | Comments | | | ty | | | | + +--------+ + + + | MRI LUMBAR SPINE W | Routin | 01/31/2012 | Status post lumbar | Results for this | | WO CONTRAST | e | 2:33 PM | spinal fusion | procedure are in the | | | | PST | Bilateral leg | results section. | | | | | weakness | | + +--------+ + + + documented in this encounter Results MRI Lumbar Spine w wo Contrast (01/31/2012 2:33 PM PST) + + | Specimen | + + | | + + + + + | Narrative | Performed At | + + + | [facility] | [place] | | Department [address] | [facility] | | [ rep [address]] [ rep [facility] | | [facility]] Signed | - IMAGING | | | | | Patient Name: KASSIE BEAR Physician: | | | JOSI. : 1940 Age: 71 Sex: F Unit #: [id number] | | | Exam Date: 01/31/12 Location: [facility] [place] | | | Report #: [id number] Page: | | | %(RAD)RES..mtdd.print.filter("pg") of %(RAD) | | | RES..mtdd.print.filter("tpg") | | | | | | Accession Number: [id number] | | | LUMBAR SPINE MRI WITH [...] | | | Transcribed Date/Time: 01/31/2012 15:16 Tobacco Baler: | | | <<Signature on File>> | | | Mando | | | Perla Yang MD01/31/12 1735 <Electronically signed by Mando Duncan | | Yary Yang MD> Mando Yang MD 01/31/12 [id number] | | | Tobacco Baler: Minuum [id number]/20/12 1516 | | | Justen Ribera MD | | + + + + + + + + | Performing | Address | City/State/Zipcode | Phone Number | | Organization | | | | + + + + + | [facility] | [address] | [place] | [phone] | | [facility] | | [address] | | | - IMAGING | | | | + + + + + documented in this encounter Visit Diagnoses + + | Diagnosis | + + | Status post lumbar spinal fusion Arthrodesis status | + + | Bilateral leg weakness Other musculoskeletal symptoms referable to limbs | + + documented in this encounter
--- OUTSIDE RECORDS SUMMARY | ~2019-07-17 | XMS | Encounter Summary ---
Demographics + + + | Address | [address] | | | [place] [address] | + + + | Home Phone | | + + + | Preferred Language | Unknown | + + + | Marital Status | Single | + + + | Methodist Affiliation | Unknown | + + + | Race | White | + + + | Ethnic Group | Not or | + + + Author + + + | Author | [facility] | + + + | Organization | [facility] | + + + | Address | Unknown | + + + | Phone | Unavailable | + + + Support + + +---------+ + | Name | Relationship | Address | Phone | + + +---------+ + | Beatrice Paulson | ECON | Unknown | | + + +---------+ + Care Team Providers + +------+ + | Care Sales Outfitter Name | Role | Phone | + +------+ + | Venkata Pettit MD | PCP | | + +------+ + Reason for Referral Diagnostic Testing (Routine) +--------+--------+ + + + + | Status | Reason | Specialty | Diagnoses / | Referred By | Referred To | | | | | Procedures | Contact | Contact | +--------+--------+ + + + + | Closed | | Clinical | Diagnoses | [place], | Cnl Emg | | | | Neurophysiolo | Myalgia | Hyacinth Alarcon, | [address] | | | | gy | Procedures | ,[facility] [address] | | | | | AUTONOMIC | [address] | Mailcode: | | | | | REFLEX | [place], | [address] | | | | | TESTING,[place] | [place] | for Health | | | | | T - | [phone] | and Healing, | | | | | NEUROLOGY | Phone: | Building [address], | | | | | | [phone] | 8th Floor | | | | | | Fax: | [place], [place] | | | | | | [phone] | [address] | | | | | | | Phone: | | | | | | | [phone] | | | | | | | Fax: | | | | | | | [phone] | +--------+--------+ + + + + Diagnostic Testing (Routine) +--------+--------+ + + + + | Status | Reason | Specialty | Diagnoses / | Referred By | Referred To | | | | | Procedures | Contact | Contact | +--------+--------+ + + + + | Closed | | Clinical | Diagnoses | [place], | Cnl Emg | | | | Neurophysiolo | Myalgia | Hyacinth A, | [address] | | | | gy | Procedures | MD,[facility] [address] | | | | | EMG/NERVE | [address] | Mailcode: | | | | | CONDUCTION | [place], | [address] | | | | | STUDIES,[place] | [place] | for Health | | | | | T - | [phone] | and Healing, | | | | | NEUROLOGY | Phone: | Building [address], | | | | | | [phone] | 8th Floor | | | | | | Fax: | [place], [place] | | | | | | [phone] | [address] | | | | | | | Phone: | | | | | | | [phone] | | | | | | | Fax: | | | | | | | [phone] | +--------+--------+ + + + + Reason for Visit + + + | Reason | Comments | + + + | New patient | | | consultation | | + + + Consultation (Routine) +--------+--------+ + + + + | Status | Reason | Specialty | Diagnoses / | Referred By | Referred To | | | | | Procedures | Contact | Contact | +--------+--------+ + + + + | Closed | | Neurology | Diagnoses | Sitz, | Tim | | | | | Myalgia and | Venkata | Neuromusc | | | | | myositis, | MD Mike | [facility] [address] | | | | | unspecified | [address] | [address] | | | | | | INTERNAL | Mailcode: | | | | | | MEDICINE | [facility] | | | | | | [facility] | for Health | | | | | | [place] | and Healing, | | | | | | [address] | [address], | | | | | | [place], | 8th Floor | | | | | | [place] [address] | [place], [place] | | | | | | Phone: | [phone] | | | | | | [phone] | Phone: | | | | | | Fax: | [phone] | | | | | | [phone] | Fax: | | | | | | | [phone] | +--------+--------+ + + + + Encounter Details +--------+---------+ + + + | Date | Type | Department | Care Team | Description | +--------+---------+ + + + | 10/07/ | Office | Neurology | Hyacinth Corona | Myalgia (Primary Dx) | | 2012 | Visit | Neuromuscular Clinic | MD Dorian,[facility] [address] | | | | | at [facility] for | [address] [place], | | | | | Health & Healing | [place] [address] | | | | | [address] | [phone] | | | | | Mailcode: CH8C | | | | | | [facility] | | | | | | and Healing, | | | | | | Building 1, | | | | | | Floor [place], [place] | | | | | | [address] | | | | | | [phone] | | | +--------+---------+ + + + [...] + + + | Blood Pressure | 140/44 | 10/07/2012 2:24 PM | | | | | PDT | | + + + + + | Pulse | 79 | 10/07/2012 2:24 PM | | | | | PDT [...] + + + + | Weight | 122.5 kg (270 lb) | 10/07/2012 2:24 PM | | | | | PDT | | + + + + + | Height | - | - | | + + + + + | Body Mass Index | - | - | | + + + + + documented in this encounter Patient Instructions Patient Instructions Hyacinth Corona MD,MPH - 10/07/2012 4:43 PM PDTYou were seen in n euromuscular clinic for your muscle tenderness and progressive weakness. We think an EMG ne rve conduction study is indicated for further workup. Depending on the results of that test , we will discuss need for further workup. documented in this encounter Progress Notes Jammie Pinedo MA - 01/20/2013 4:09 PM PSTMailed result to pt and [facility] signed by Jammie Pinedo MA at 01/20/2013 4:09 PM PSTTeressa Triplett MD - 10/15/2012 4: 09 PM PDTI reviewed the patient's history, examination findings and diagnostic test results with Dr. Corona. I personally repeated pertinent parts of the history and examination. I di scussed the diagnosis and management with Dr. Corona and agree with her documentation. Teressa Triplett MD Sr. Manager Marketing Department of Neurology yacinth Corona MD, MPH - 10/07/2012 2:54 PM PDT NEUROLOGY NEW CLINIC NOTE Author: HYACINTH CORONA MD,MPH Date/Time: 10/07/2012 2:54 PM Primary Care Provider: Referred by: Zenaida Pettit MD Reason for Consultation: Progressive myalgias and weakness x 1 year HPI: Kassie Bear is a 71 y.o. Right-handed female with past medical history significa nt for cervical and lumbar stenosis s/p C5-C6 ACDF and L3-L4 PSDF, OA, HTN, HLD, presenting to clinic today for chief compliant of progressive myalgias and weakness x 1 year. She is r eferred to [facility] Neuromuscular clinic by her PCP Dr. Pettit because of progressive myalgias and weakness. Since 2011, patient started noticing progressive bilateral leg weakness, right worse than left. In going up stairs, she feels her left leg is stronger; but when she is walking , she holds her cane in the left hand because she thinks the left is weaker. In January, p atient could not rise from the floor (after she had gotten down to plug in an appliance), an d her left leg collapsed. She called her spine surgeon (had surgery 2 years prior in cervic al and lumbar spine) and underwent an MRI lumbar spine at [facility] in [place] at 01/2012. Her surgeon told her that he did not feel the study merited emergent operative intervention, but he moved out of the area around that time so she has not followed with a spine surgeon recently. Patient has had a couple falls in the past 6 months - some mild balance issues, but she thi nks it is mostly weakness related. She uses her cane most of the time because of weakness. Her PCP referred her for PT, but she had progressive difficulty with walking despite physic al therapy. She also tries to exercise daily with water exercise and at the gym. The patient's current discomfort is mostly cramping/aching pains in her muscles and exquisi te muscle/bone tenderness, to any kind of pressure. Following her spinal surgeries in 2009, the patient experienced some shooting "stinging pains like jelly fish" in her legs or torso , but this type of discomfort has lessened recently. She also has bilateral trochanteric bu rsitis. Pain in lower back and hips worse with walking - so she wobbles when she walks. +t ingling/numbness on all toes bilaterally and distal mid-foot. Of note, patient has had 2 EMGs in [place]: 12/2009 (Dr. Rogers) and 07/2011 (Dr. Mihaela ley) - none in the past year after her new sx started. 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 In February 2012, Patient saw Neurologist Dr. Muhammad in [place], [place], after an episode of slurred speech and "speaking gibberish" lasting 15-20 minutes following an ocular migraine. Patient has been having ocular migraines for ~10 years, but the sudden new difficulty with speech was new - so she had an extensive workup: CT head and CTA, carotid duplex, ECHO. Re garding her ocular migraines, she experiences sudden blurry vision x 10-20 min in both eyes ~ 2 x per year. Never had headaches. +choking episode in 07/2011 on almonds, then a week later she choked on pizza. She was eval uated by a speech therapist who only noticed that she "swallows twice whereas most people sw allow once", but did not note any big abnormalities. She has been more careful about her ch davis slowly since that time, but does not feel she has ongoing dysphagia. No vision/hearin g/taste changes. No headaches, vertigo, lightheadedness, syncope. +2 episodes of fecal urg ency/incontinence in July of this year when she was quitting the Lexipro. Exposures/medications: Patient denies toxic exposures. Patient has a history of hyperchole sterolemia with LDL up to 200s, so she was started on statins in 02/2009. She tried multiple agents because they either didn't work or had troublesome side effects like joint pain. He r PCP stopped these in 02/2012 because he was concerned it could be contributing to the weakn ess; however she has not gotten better. Patient was started on Carvedilol by a paraoptometric around that time. She was also tried on Naproxen for hip bursitis pain (after coming off D iclofenac given her enlarged heart). Review of Systems: A complete review of systems was performed and is negative except for HPI. No fevers/chill s, sweats, recent illness. Had hot flashes and heat sensitivity, but these have resolved re cently. No N/V/C. No recent travel - last traveled to [place]. No insect or animal bites. No rashes or lesions, but some bruising after a fall. PMH: Osteoarthritis Cervical stenosis of spine Comment: s/p ACDF C5-C6 09/2009 Lumbar stenosis Trochanteric bursitis of both hips Home Meds: Current Medication List Name Sig ASPIRIN 81 MG TABLET,DELAYED RELEASE Take 81 mg by mouth once daily. VITAMIN D-3 ORAL Take 2,000 Units by mouth once daily. CARVEDILOL 12.5 MG TABLET Take 12.5 mg by mouth two times daily. Administer with food. MAGNESIUM 250 MG TABLET Take by mouth. NAPROXEN SODIUM 220 MG TABLET Take 220 mg by mouth two times daily. Allergies: Allergies No Known Allergies Social History: History Social History Marital Status: Single Spouse Name: N/A Number of Children: N/A Years of Education: N/A Occupational History Not on file. Social History Main Topics Smoking status: Never Smoker Smokeless tobacco: Never Used Alcohol Use: Not on file Drug Use: Not on file Sexually Active: Not on file Other Topics Concern Not on file Social History Narrative . ~ 5 years ago. Retired. 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 S ocial drinking, minimal. No illicits. Family History: No history of neurological disease that she knows of - does not know patern al family history - except dementia and DM in her maternal grandmother. Mother in MVA at 49 - her twin had some psychiatric problems and colon CA but lived into her 80s. Physical Exam: BP 140/44 | Pulse 79 | Wt 122.471 kg (270 lb) Admission Weight: Weight: 122.471 kg (270 lb) (10/07/12 1424) Constitutional: NAD, dressed and groomed appropriately, overweight Psychiatric: Mood/Affect: Mood is pleasant, affect is congruent to mood HEENT: Eyes: no conjunctival injection, anicteric sclera Mouth: mucous membranes moist, no oral lesions Cardiovascular: regular rate and rhythm Respiratory: breathing comfortably GI: Abdomen soft and non-tender Musculoskeletal: +joint and muscle tenderness to moderate touch, no lower extremity edema Skin: +erythema of feet bilaterally, +bruise on L arm from fall; no rashes Neurological: Mental Status: General: Awake, alert and oriented to person, place and time Concentration and attention span: Normal Fund of knowledge: Adequate recent and remote recall Language: Fluent and articulate without evidence of aphasia or dysarthria Cranial Nerves: II: PERRL, visual hunt full to confrontation and finger counting bilaterally III, IV, : Gaze conjugate, EOMI, no nystagmus V: Sensation intact and symmetric to light touch V1-V3 VII: Symmetric facial motor function bilaterally VIII: Intact to finger rub bilaterally IX, X: Palate elevates symmetrically, normal cough XI: Normal shrug bilaterally XII: Tongue protrudes midline Motor: Delt Bi Tri WE FF IO HF KE ADF EHL APF Left 5 5 5 5 5 5 4+ 5 4 4- 4++ Right 5 5 5 5 5 5 4+ 5 4+ 4 4++ Normal tone. No spasticity. Sensation: Light touch: Decreased in the feet bilaterally. Temp: Slightly decreased in the BLE distal to the mid-calves bilaterally. Vibration: Decreased in ankles/toes bilaterally. Pin prick: Decreased in distal feet bilaterally but hypersensitive in proximal feet Proprioception: Intact and symmetric in the bilateral upper and lower extremities. DTRs: Biceps Triceps Brachioradialis Knee Ankle Left 2+ 2+ 2+ 2+ 1+ Right 2+ 2+ 2+ 2+ 1+ Plantar response is equivocal on right and ?upgoing on left. Coordination: Rapid alternating movements are normal, no dysdiadochokinesia Finger to nose is normal, no dysmetria or dyssynergia Heel to stuart is normal, no dyssynergia Gait: Waddling, unsteady, wide-based, circumferential, gait and armswing. Unable to walk on heels, toes and tandem. Difficulty standing from chair Romberg: negative Labs: HbA1c 5.5 B12 462 Folate 16.5 Vit D 21 TSH 1.8 CK 74 WBC 6.2 with 24% eosinophils on 08/12/12 -> 9.4 on 08/20/12 -> 5.5 (normal) on 09/11/12 LDL 149 ESR 12 Lytes, LFTs normal Imaging: Reviewed Lspine imaging and CT head personally: MRI Lumbar spine 01/22 = postop changes at L3-L4 with interval decompression & fusion & dis cectomy with improved canal stenosis but persistent neuroforaminal stenosis at that level L3 -L4; progression of anterolisthesis of L4 on L5, which has resulted in more significant narr owing of the spinal canal and neuroforamen at that level; progressive new moderate central c anal stenosis at L2-L3 CT head 02/2012 = "some patchiness" in occipital lobe CTA Carotids 03/26 = L carotid with ~45% stenosis, unremarkable on R ECHO = enlarged L atrium, some aortic calcification; o/w ok Other studies: 10/08/12 EMG/NCS by Dr. Triplett: Conclusion This is an abnormal study. 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 Activ e denervation seen in distal lower limb muscles is likely secondary to peripheral neuropathy but we cannot exclude an active left S1 radiculopathy on this study. Also seen is a mild, l eft ulnar neuropathy at the elbow Summary NCS: There are reduced amplitudes in the R peroneal, R tibial, and L peroneal motor nerves. The sural responses were borderline low amplitude. There was focal slowing of the left ulna r motor response across the elbow.The right median sensory response had a borderline slowed conduction velocity which was secondary to a cool limb (29 C). EMG: There were MUAPs of increased duration and amplitude in the left TA, gastroc, peroneus , TFL and gluteus jake. There were polyphasic MUAPs in the gluteus jake. Fibs and incr eased insertional activity were noted in the left gastroc and peroneus. Diagnosis: Myalgias, weakness Assessment: Kassie Bear is a 71 y.o. Right-handed female with past medical history s ignificant for cervical and lumbar stenosis s/p C5-C6 ACDF and L3-L4 PSDF, OA, HTN, HLD, pre senting to clinic today for chief compliant of progressive myalgias and weakness x 1 year. Neurological exam is significant for diffuse lower extremity weakness (worst in bilateral EH L), distal bilateral lower extremity sensory loss to all modalities, reduced ankle reflexes, left upgoing toe and waddling gait. MRI from 01/22 demonstrates ongoing lumbar stenosis, w orst at L4-L5; but also significant persistent neuroforaminal stenosis at L3-L4 and moderate stenosis at L2-L3; interval worsening from prior imaging per radiology read. EMG/NCS demon strates evidence of both a length-dependent axonal polyneuropathy and evidence of multiple c hronic lumbar radiculopathies (L4-S1), and evidence active denervation at S1; no evidence of myopathy. The etiology of patient's progressive lower extremity weakness is likely multifactorial: th e polyneuropathy and lumbar stenosis are both likely contributors. The evidence of active d enervation at S1 that we see on EMG we think is most likely secondary to the patient's polyn europathy (given the distribution, lack of gluteal muscle involvement), not from active comp ressive spinal disease - however, we cannot be certain. There is evidence of chronic lumbar radiculopathies at L4-S1, undetermined age, so it is difficult to determine when it occurre d or how much it contributes to the patient's weakness. Given ongoing lumbar stenosis with interval worsening on imaging, patient should be followed by a spine surgeon to ensure she d oes not develop worsening symptomatic stenosis that may be amenable to surgery. Given the active neuropathy and spinal stenosis, patient may benefit from medications that target neuropathic pain for symptom control, such as Gabapentin, Lyrica, Amitriptyline, dulo xetine, etc. Plan: - Gabapentin 300mg TID for neuropathic pain, may up-titrate up to 1200mg TID if effective - patient should follow closely with a spine surgeon given her ongoing lumbar stenosis, int erval worsening, and risk for worsening compressive degenerative disease that may be amenabl e to surgical intervention Return to clinic as needed. This patient has been staffed with Dr. Triplett, attending physician, who agrees with the [facility] assessment and plan. HYACINTH CORONA MD,MPH Neurology Resident documented in this encounter Plan of Treatment Not on filedocumented as of this encounter Procedures + +--------+ + + + | Procedure Name | Priori | Date/Time | Associated Diagnosis | Comments | | | ty | | | | + +--------+ + + + | AUTONOMIC REFLEX | Routin | 11/07/2012 | Myalgia | Results for this | | TESTING,ADULT - | e | | | procedure are in the | | NEUROLOGY | | | | results section. | + +--------+ + + + | EMG/NERVE CONDUCTION | Routin | 10/08/2012 | Myalgia | Results for this | | STUDIES,ADULT - | e | 12:00 AM | | procedure are in the | | NEUROLOGY | | PDT | | results section. | + +--------+ + + + documented in this encounter Results AUTONOMIC REFLEX TESTING,ADULT - NEUROLOGY (11/07/2012) + + + | Narrative | Performed At | + + + | Clinic Date: 11/07/2012 AUTONOMIC FUNCTION TESTING | | | Medications: 1. Carvedilol. 2. Aspirin. | | | 3. Gabapentin. 4. Magnesium. 5. | | | Naproxen. 6. Calcium with vitamin D. | | | Results: 1. Valsalva maneuver: With Valsalva | | | maneuver, the greatest heart rate ratio is 1.18, which is reduced. | | | 2. Deep breathing: With deep breathing, the | | | average heart rate difference during expiration and inspiration is | | | 8.1, which is normal. 3. Tilt table: With | | | passive, head-up tilt, there is reduction in the systolic blood | | | pressure from 160 to 120 mmHg, and a drop in the diastolic blood | | | pressure from 75 to 50 mmHg, with no significant change in heart | | | rate. 4. QSART: With the local application of | | | acetylcholine, the sweat response in the forearm is 1.172 mcL, which | | | is normal, normal in the proximal leg at 1.060 mcL, normal in the | | | distal leg at 1.138 mcL, and normal in the foot at 0.138 mcL. | | | Impression: This is an abnormal study. The findings are | | | suggestive of autonomic neuropathy but also could be due to a | | | medication effect, predominantly from use of Carvedilol. Clinical | | | correlation is recommended. Teressa Triplett MD | | | Please see the procedure tab for the full scanned report. | | + + + IMMUNOFIXATION, SERUM (NEUROLOGY ONLY) (10/08/2012 11:10 AM PDT) + + + + + + | Component | Value | Ref Range | Performed | Pathologist | | | | | At | Signature | + + + + + + | IMMUNOFIXAT | No monoclonal protein | | [facility] | | | ION, SERUM | detected by | | [facility] | | | | immunofixation | | [place] | | | | electrophoresis. | | | | + + + + + + + + | Specimen | + + | Blood - Blood | + + + + + + + | Performing | Address | City/State/Zipcode | Phone Number | | Organization | | | | + + + + + | [facility] - | [address] | [place] [address] | | | [place] | | | | + + + + + ANTI NUCLEAR AB SCREEN, SERUM (10/08/2012 11:10 AM PDT) + + + + + + | Component | Value | Ref Range | Performed | Pathologist | | | | | At | Signature | + + + + + + | KAYLEN SCREEN | Negative | Negative | [facility] | | | ON HEP | | | [facility] - | | | 2,SERUM | | | [place] | | + + + + + + + + | Specimen | + + | Blood - Blood | + + + + + + + | Performing | Address | City/State/Zipcode | Phone Number | | Organization | | | | + + + + + | [facility] | [address] | [place] [address] | | | [place] | | | | + + + + + ANTI NEUTROPHIL CYTOPLASMIC AB SCN, SERUM (10/08/2012 11:10 AM PDT) + + + + + + | Component | Value | Ref Range | Performed | Pathologist | | | | | At | Signature | + + + + + + | ANCA | <1:20Comment: The ANCA | <1:20 | [facility] | | | -NEUTROPHIL | IFA is <1:20; therefore, | | [facility] | | | | no further testing | | [facility] | | | CYTOPLASMIC | willbe performed. ANCA | | | | | IGG, SERUM | IFA is < 1:20. No | | | | | | further reflex testing | | | | | | will | | | | | | beperformed.INTERPRETIVE | | | | | | INFORMATION: | | | | | | Anti-Neutrophil Cyto Ab, | | | | | | IgG Neutrophil | | | | | | Cytoplasmic Antibodies | | | | | | (C-ANCA = | | | | | | granularcytoplasmic | | | | | | staining, P-ANCA = | | | | | | perinuclear staining) | | | | | | arefound in the serum of | | | | | | over 90 percent of | | | | | | patients withcertain | | | | | | necrotizing systemic | | | | | | vasculitides, and | | | | | | usually inless than 5 | | | | | | percent of patients with | | | | | | collagen | | | | | | vasculardisease or | | | | | | arthritis.Performed by | | | | | | [facility],[address] | | | | | [address], [facility] [place] | | | | | | [address] | | | | | | [phone].[facility]. | | | | | | [place] green, | | | | | | , Lab. Director | | | | + + + + + + + + | Specimen | + + | Blood - Blood | + + + + + + + | Performing | Address | City/State/Zipcode | Phone Number | | Organization | | | | + + + + + | [facility] | [address] | [place], [place] | | | UN[facility] | | [phone] | | + + + + + C-REACT PRTN (FOR INFLAMMATION) (10/08/2012 11:10 AM PDT) + +---------+ + + + | Component | Value | Ref Range | Performed | Pathologist | | | | | At | Signature | + +---------+ + + + | C-REACTIVE | 0.9 (H) | <=0.4 mg/dL | [facility] | | | PROTEIN | | | [facility] | | | | | | [place] | | + +---------+ + + + + + | Specimen | + + | Blood - Blood | + + + + + + + | Performing | Address | City/State/Zipcode | Phone Number | | Organization | | | | + + + + + | [facility] | [address] | [place] [address] | | | [place] | | | | + + + + + EMG/NERVE CONDUCTION STUDIES,ADULT - NEUROLOGY (10/08/2012 12:00 AM PDT) + + + | Narrative | Performed At | + + + | | | | | | + + + + + | Procedure Note | + + | Graham Villarreal - 10/09/2012 9:44 AM PDT | + + documented in this encounter Visit Diagnoses + + | Diagnosis | + + | Myalgia - Primary Mylagia and myositis, unspecified | + + documented in this encounter
--- OUTSIDE RECORDS SUMMARY | ~2019-07-17 | XMS | Encounter Summary ---
Demographics + + + | Address | [address] | | | [place] [address] | + + + | Home Phone | | + + + | Preferred Language | Unknown | + + + | Marital Status | | + + + | Islam Affiliation | Unknown | + + + | Race | Unknown | + + + | Ethnic Group | Unknown | + + + Author + + + | Author | [facility] | | | and [place] | + + + | Organization | [facility] | | | and [place] | + + + | Address | Unknown | + + + | Phone | Unavailable | + + + Support + + + + + | Name | Relationship | Address | Phone | + + + + + | Veronica Anderson | ECON | [place] | | | | | [address] | | + + + + + | Beatrice Paulson | ECON | [address] | | | | | [place] | | | | | [address] | | + + + + + Care Team Providers + +------+ + | Care Director Of Development And Marketing Name | Role | Phone | + +------+ + | Parvez Vail MD | PCP | | + +------+ + Reason for Visit + + + | Reason | Comments | + + + | Follow-up | Plan of care | + + + Encounter Details +--------+ + + + + | Date | Type | Department | Care Team | Description | +--------+ + + + + | 04/02/ | Telephone | [facility] | Nery Rivero | Follow-up (Plan of | | 2019 | | CARDIOLOGY [place] Franklin RN | care) | | | | [address] | | | | | | [place] | | | | | | [address] | | | | | | [phone] | | | +--------+ + + + [...] [place] | | | | | | [address] | | | | | | | | +--------+---------+ + + + documented as of this encounter Visit Diagnoses Not on filedocumented in this encounter"
--- OUTSIDE RECORDS SUMMARY | ~2019-07-17 | XMS | Encounter Summary ---
Demographics + + + | Address | [address] | | | [place] [address] | + + + | Home Phone | | + + + | Preferred Language | Unknown | + + + | Marital Status | | + + + | Shinto Affiliation | Unknown | + + + | Race | Unknown | + + + | Ethnic Group | Unknown | + + + Author + + + | Author | [facility] | | | and [place] | + + + | Organization | [facility] | | | and [place] | + + + | Address | Unknown | + + + | Phone | Unavailable | + + + Support + + + + + | Name | Relationship | Address | Phone | + + + + + | Veronica Anderson | ECON | [place] | | | | | [address] | | + + + + + | Beatrice Paulson | ECON | [address] | | | | | [place] | | | | | [address] | | + + + + + Care Team Providers + +------+ + | Care Brain Wave Technician Name | Role | Phone | [...] | | | | | | sm ([facility]) | | | | | [...] + + | 04/04/ | Anesthesia | [facility] | Idalia Leiva, | | | 2019 | Event | [facility] | MD [address] | | | | | OPERATING RO[address] | [place] [address] | | | | | [address] | [phone] | | | | | [place], [place] | | | | | | [address] | | | | | | [phone] | | | +--------+ + + + [...] Rosemary Carrero RN | | IV | vamr-zyj-telrbu catheter system; | | | | | 22 gauge; removed inadvertently; | | | | | 04/05/19; 0100 | | | +--------+ + + + | Airway | Placement Date: 04/04/19; | 04/04/19 08 by | 04/04/19 0858 by | | | Placement Time: 802; Removal | Idalia Leiva MD | Idaila Leiva MD | | | Date: 04/04/19; [...] Barbara Dewey RN | | IV | xlqu-hpq-ijjbxc catheter system; | Tigre Hinton RN | [...] [address] | | | | | | [facility] | | | | | | [place] | | | | | | [address] | | | | | | | [...]
--- OUTSIDE RECORDS SUMMARY | ~2019-07-17 | XMS | Encounter Summary ---
Demographics + + + | Address | [address] | | | [place] [address] | + + + | Home Phone [...] [place] | | | | | [address] | | + + + + + | Beatrice Paulson | ECON | [address] | | | | | [place] | | | | | [address] | | + + + + + Care Team Providers + +------+ + | Care Director Of Safety And Security Name | Role | Phone | + +------+ + | Parvez Vail MD | PCP | | + +------+ + Encounter Details +--------+ + + + + | Date | Type | Department | Care Team | Description | +--------+ + + + + | 11/06/ | Abstract | [facility] | AlexisAnniaDestini | | | 2018 | | CARDIOLOGY CHRISTOPHER Rubin Director Of Golf | | | | | [address] | | | | | | [address] | | | | | | [place] | | | | | | [address] | | | | | | [phone] | | | +--------+ + + + [...] 1100 | | | | | | [facility] | | | | | | [place] | | | | | | [address] | | | | | | | | +--------+---------+ + + + documented as of this encounter Visit Diagnoses Not on filedocumented in this encounter"
--- OUTSIDE RECORDS SUMMARY | ~2019-07-17 | XMS | Encounter Summary ---
Demographics + + + | Address | [address] | | | [place] [address] | + + + | Home Phone | | + + + | Preferred Language | Unknown | + + + | Marital Status | | + + + | Latter Day Affiliation | Unknown | + + + | Race | Unknown | + + + | Ethnic Group | Unknown | + + + Author + + + | Author | [facility] | | | and [place] | + + + | Organization | [facility] | | | and [place] | + + + | Address | Unknown | + + + | Phone | Unavailable | + + + Support + + + + + | Name | Relationship | Address | Phone | + + + + + | Veronica Anderson | ECON | [place] | | | | | [address] | | + + + + + | Beatrice Paulson | ECON | [address] | | | | | [place] | | | | | [address] | | + + + + + Care Team Providers + +------+ + | Care Loss Prevention Agent Name | Role | Phone | + [...] | | | | . | | [place] [address] | | | | | | | Phone: | | | | | | | [phone] | | | | | | | Fax: | | | | | | | [phone] | +--------+--------+ + + + + Encounter Details +--------+---------+ + + + | Date | Type | Department | Care Team | Description | +--------+---------+ + + + | 02/20/ | Surgery | [facility] | Elvin Jamil | CV EP CARDIOVERSION | | 2019 | | CENTER CV INTRA OP | MD [address] | | | | | [address] | [facility] | | | | | [place], [place] | [place], [place] | | | | | [address] | [address] | | | | | [phone] | | | +--------+---------+ + + + [...] 1100 | | | | | | [facility] | | | | | | [place] | | | | | | [id number] | | | | | | | [...] | | | | | performed at [facility];888 | | | | | | [address];[place] | | | | | | [address] | | | | + + + + + + + + | Specimen | + + | Blood | + + + + + + + | Performing | Address | City/State/Zipcode | Phone Number | | Organization | | | | + + + + + | [facility] | [address] | [place] [address] | [phone] | + + + + + CBC [...] | | | Absolute | performed at [facility];[address] | K/uL | LABORATORY | | | | [address];[place], [place] | | | | | | [address] | | | | + + + + + + + + | Specimen | + + | Blood | + + + + + + + | Performing | Address | City/State/Zipcode | Phone Number | | Organization | | | | + + + + + | [facility] | [address] | [place] [address] | [phone] | + + + + + Basic [...] | | | | | performed at [facility];[address] | | | | | | [address];[place], [place] | | | | | | [address] | | | | + + + + + + + + | Specimen | + + | Blood | + + + + + + + | Performing | Address | City/State/Zipcode | Phone Number | | Organization | | | | + + + + + | [facility] | [address] | [place] [address] | [phone] | + + + + + ECG [...]
--- OUTSIDE RECORDS SUMMARY | ~2019-07-17 | XMS | Encounter Summary ---
Demographics + + + | Address | [address] | | | [place] [address] | + + + | Home Phone | | + + + | Preferred Language | Unknown | + + + | Marital Status | | + + + | Baptist Affiliation | Unknown | + + + | Race | Unknown | + + + | Ethnic Group | Unknown | + + + Author + + + | Author | [facility] | | | and [place] | + + + | Organization | [facility] | | | and [place] | + + + | Address | Unknown | + + + | Phone | Unavailable | + + + Support + + + + + | Name | Relationship | Address | Phone | + + + + + | Veronica Anderson | ECON | [place] | | | | | [address] | | + + + + + | Beatrice Paulson | ECON | [address] | | | | | [place] | | | | | [address] | | + + + + + Care Team Providers + +------+ + | Care Yard Coupler Name | Role | Phone | + +------+ + | Parvez Vail MD | PCP | | + +------+ + Reason for Visit +--------+ + | Reason | Comments | +--------+ + | Pre-Op | Called pt regarding pre op instructions | +--------+ + Encounter Details +--------+ + + + + | Date | Type | Department | Care Team | Description | +--------+ + + + + | 12/19/ | Telephone | [facility] | Lori Recinos DO | Pre-Op (Called pt | | 2019 | | CENTER INTRA OP | [address] | regarding pre op | | | | [address] | [place] | instructions) | | | | [facility] | [id number] | | | | | [address] | | | | | | [phone] | | | +--------+ + + + [...] [place] | | | | | | [address] | | | | | | | | +--------+---------+ + + + documented as of this encounter Visit Diagnoses Not on filedocumented in this encounter"
--- OUTSIDE RECORDS SUMMARY | ~2019-07-17 | XMS | Encounter Summary ---
Demographics + + + | Address | [address] | | | [place] [address] | + + + | Home Phone | | + + + | Preferred Language | Unknown | + + + | Marital Status | | + + + | Yazidi Affiliation | Unknown | + + + [...] [place] | | | | | [address] | | + + + + + | Beatrice Paulson | ECON | [address] | | | | | [place] | | | | | [address] | | + + + + + Care Team Providers + +------+ + | Care Mobile Home Lot Utility Worker Name | Role | Phone [...] | | | | | | sm ([facility]) | | | | | | [...] Description | +--------+---------+ + + + | 03/31/ | Surgery | [facility] | Elvin Jamil | BLAYNE EP ABLATION AF | | 2019 | | [facility] | MD Re[address] | | | | | LAB [address] | [facility] | | | | | [place], [place] | [place], [place] | | | | | [address] | [address] | | | | | [phone] | | | +--------+---------+ + + + [...] - OK to shower with dressings in [facility] ce the day you get home. Avoid [...] follow gravity, so it s common for cxbhm-ela-lpck quezada to move down the l eg. [...] In these cases, a caregiver will l ikely want to take a look at the [...] given to and understood by patient. Breana Bustillo ARNP - 04/01/2019 7:01 AM PST Cardiac [...] cardiovers ion performed in December 2018 with samaritan of sinus rhythm. She did note an improveme nt in her symptoms with samaritan of sinus rhythm but unfortunately symptoms returned [...] novel oral anticoagulants are expensive under her formerly [facility] plan. Her echocardiogram performed in August [...] with the findings and plan of the [facility] practice provider/house staff with further assessment and [...] [address] | | | | | | [facility] | | | | | | [place] | | | | | | [id number] | | | | | | | [...] | | | | | | by Flaco Milian MD | | | | | | (5101) on 03/31/2019 | | | | | [...] | | | Clotting | performed at [facility];888 | seconds | LABORATORY | | | Time, POC | [address];[place] | | | | | | [address] | | | | + + + + + + + + | Specimen | + + | | + + + + + + + | Performing | Address | City/State/Zipcode | Phone Number | | Organization | | | | + + + + + | [facility] | [address] | [place] [address] | [phone] | + + + + + Activated clotting time (03/31/2019 9:02 AM PST) + + + + + + | Component | Value | Ref Range | Performed | Pathologist | | | | | At | Signature | + + + + + + | Activated | 357 (H)Comment: Testing | 74 - 137 | ANTHONY | | | Clotting | performed at [facility];888 | seconds | LABORATORY | | | Time, POC | [address];[place] | | | | | | [address] | | | | + + + + + + + + | Specimen | + + | | + + + + + + + | Performing | Address | City/State/Zipcode | Phone Number | | Organization | | | | + + + + + | [facility] | [address] | [place] [address] | [phone] | + + + + + Activated [...] | | | Clotting | performed at [facility];888 | seconds | LABORATORY | | | Time, POC | [address];[place], [place] | | | | | | [address] | | | | + + + + + + + + | Specimen | + + | | + + + + + + + | Performing | Address | City/State/Zipcode | Phone Number | | Organization | | | | + + + + + | [facility] | [address] | [place] [address] | [phone] | + + + + + Protime INR (03/31/2019 7:11 AM PST) + + + + + + | Component | Value | Ref Range | Performed | Pathologist | | | | | At | Signature | + + + + + + | INR | 2.9Comment: REFERENCE | | [facility] | | | | RANGE:0.9 - [...] | | | | | performed at [facility];888 | | | | | | [address];[place] | | | | | | [address] | | | | + + + + + + + + | Specimen | + + | Blood | + + + + + + + | Performing | Address | City/State/Zipcode | Phone Number | | Organization | | | | + + + + + | [facility] | [address] | [place] [address] | [phone] | + + + + + CBC [...] | | | Absolute | performed at [facility];[address] | K/uL | LABORATORY | | | | [facility];[place], [place] | | | | | | [address] | | | | + + + + + + + + | Specimen | + + | Blood | + + + + + + + | Performing | Address | City/State/Zipcode | Phone Number | | Organization | | | | + + + + + | [facility] | [address] | [place] [address] | [phone] | + + + + + Basic [...] | >60Comment: GFR <60: | >60 | [facility] | | | GFR | CHRONIC [...] | | | | | | MDRD IDNH traceable | | | | | | equation.Testing | | | | | | performed at [facility] | | | | | | [facility];[place], [place] | | | | | | [address] | | | | + + + + + + + + | Specimen | + + | Blood | + + + + + + + | Performing | Address | City/State/Zipcode | Phone Number | | Organization | | | | + + + + + | [facility] | [address] | [place] [address] | [phone] | + + + + + CV [...] | | | | | | longer, lakwbt-dke-jbdjq use of | | | | | [...] | | | | | | | eifswk-lcc-tghve use of at least | | | [...] | | +---+---+ + +-------+ +--------+---+---+ | iohexol (OMNIPAQUE 300) 300 | Given | 03/31/19 | 20 mLs | | | | mg/mL injection ONCE PRN, | | 20 9:20 | | | | | Starting 03/31/19 at 0920, | | AM PST | | | [...] PRN, Nausea, Vomiting, | | | Starting 03/31/19 at 1346 | | + +---+ | [...] AM PST | | | | | Sat03/31/19 at 0715, Pre-op | | | | | | + +---------+ +---+---+---+ +---------+ +---+ +---+ | New Bag | 03/31/19 | | 10 mL/hr | | | | 20 7:05 | | | | | | AM PST | | | | +---------+ +---+ +---+ +---+---+ | | | +---+---+ documented in this encounter
--- OUTSIDE RECORDS SUMMARY | ~2019-07-17 | XMS | Encounter Summary ---
Demographics + + + | Address | [address] | | | [place] [address] | + + + | Home Phone | | + + + | Preferred Language | Unknown | + + + | Marital Status | | + + + | Sikh Affiliation | Unknown | + + + [...] [place] | | | | | [address] | | + + + + + | Beatrice Paulson | ECON | [address] | | | | | [place] | | | | | [address] | | + + + + + Care Team Providers + +------+ + | Care Apartment Rental Agent Name | Role | Phone | [...] | | | | fibrillation | | [place], [place] | | | | | (HCC) | | [address] Phone: | | | | | Procedures | | [phone] | | | | | OR CATH PLMT | | Fax: | | | | | L HRT & | | [phone] | | | | | ARTS W/NJX & | | | | | | | ANGIO IMG | | | | | | | S&I | | | +--------+--------+ + + + + Encounter Details +--------+---------+ + + + | Date | Type | Department | Care Team | Description | +--------+---------+ + + + | 12/22/ | Surgery | [facility] | Lori Recinos DO | CV EP CARDIOVERSION | | 2019 | | CENTER CV INTRA OP | [address] | | | | | [address] | [place], [place] | | | | | [place], [place] | [address] | | | | | [address] | | | | | | [phone] | | | +--------+---------+ + + + [...] issues from blood-thinning medicines Date Last Reviewed: 04/11/201619999396-4112 The [employer]. [address] [place] [address], [place] [address]. All righ ts reserved. This information is [...] [address] | | | | | | [facility] | | | | | | [place], [place] | | | | | | [address] | | | | | | | [...] the | | | | PST | ([facility]) | results section. | + +--------+ + [...] | INR | 2.2Comment: REFERENCE | | [facility] | | | | RANGE:0.9 - [...] | | | | | performed at [facility];888 | | | | | | [address];[place] | | | | | | [address] | | | | + + + + + + + + | Specimen | + + | Blood | + + + + + + + | Performing | Address | City/State/Zipcode | Phone Number | | Organization | | | | + + + + + | [facility] | [address] | [place] [address] | [phone] | + + + + + Comprehensive [...] | | | | | performed at [facility];888 | | | | | | [address];[place] | | | | | | [address] | | | | + + + + + + + + | Specimen | + + | Blood | + + + + + + + | Performing | Address | City/State/Zipcode | Phone Number | | Organization | | | | + + + + + | [facility] | [address] | [place] [address] | [phone] | + + + + + CBC [...] | | | Absolute | performed at [facility];[address] | K/uL | LABORATORY | | | | [address];[place], [place] | | | | | | [address] | | | | + + + + + + + + | Specimen | + + | Blood | + + + + + + + | Performing | Address | City/State/Zipcode | Phone Number | | Organization | | | | + + + + + | [facility] | [address] | [place] [address] | [phone] | + + + + + ECG [...]
--- OUTSIDE RECORDS SUMMARY | ~2019-07-17 | XMS | Encounter Summary ---
Demographics + + + | Address | [address] | | | [place] [address] | + + + | Home Phone | | + + + | Preferred Language | Unknown | + + + | Marital Status | | + + + | Uatsdin Affiliation | Unknown | + + + | Race | Unknown | + + + | Ethnic Group | Unknown | + + + Author + + + | Author | [facility] | | | and [place] | + + + | Organization | [facility] | | | and [place] | + + + | Address | Unknown | + + + | Phone | Unavailable | + + + Support + + + + + | Name | Relationship | Address | Phone | + + + + + | Veronica Anderson | ECON | [place] | | | | | [address] | | + + + + + | Beatrice Paulson | ECON | [address] | | | | | [place] | | | | | [address] | | + + + + + Care Team Providers + +------+ + | Care Varying Exceptionalities Teacher Name | Role | Phone | + +------+ + | Venkata Pettit MD | PCP | | + +------+ + Reason for Visit + + + | Reason | Comments | + + + | Follow-up(Procedure) | pain log follow up | + + + Encounter Details +--------+ + + + + | Date | Type | Department | Care Team | Description | +--------+ + + + + | 03/28/ | Telephone | [facility] | Michelle, | Follow-up(Procedure) | | 2017 | | PHYSIATRY [address] | [address] | (pain log follow | | | | [address] | [address] | up) | | | | [place], [place] | [place] [address] | | | | | [address] | [phone] | | | | | [phone] | | | +--------+ + + + [...] [place] | | | | | | [address] | | | | | | | | +--------+---------+ + + + documented as of this encounter Visit Diagnoses Not on filedocumented in this encounter"
--- OUTSIDE RECORDS SUMMARY | ~2019-07-17 | XMS | Encounter Summary ---
Demographics + + + | Address | [address] | | | [place] [address] | + + + | Home Phone | | + + + | Preferred Language | Unknown | + + + | Marital Status | | + + + | Baptist Affiliation | Unknown | + + + | Race | Unknown | + + + | Ethnic Group | Unknown | + + + Author + + + | Author | [facility] | | | and [place] | + + + | Organization | [facility] | | | and [place] | + + + | Address | Unknown | + + + | Phone | Unavailable | + + + Support + + + + + | Name | Relationship | Address | Phone | + + + + + | Veronica Anderson | ECON | [place] | | | | | [address] | | + + + + + | Beatrice Paulson | ECON | [address] | | | | | [place] | | | | | [address] | | + + + + + Care Team Providers + +------+ + | Care Paper Twister Tender Name | Role | Phone | + [...] | | | | . | | [place] [address] | | | | | | | Phone: | | | | | | | [phone] | | | | | | | Fax: | | | | | | | [phone] | +--------+--------+ + + + + Encounter Details +--------+ + + + + | Date | Type | Department | Care Team | Description | +--------+ + + + + | 02/20/ | Anesthesia | [facility] | Wilton Hastings | | | 2020 | Event | CENTER CV INTRA OP | [address] | | | | | [address] | [address] | | | | | [place], [place] | [place] [address] | | | | | [address] | [phone] | | | | | [phone] | | | +--------+ + + + [...] [address] | | | | | | [facility] | | | | | | [place] | | | | | | [address] | | | | | | | [...]
--- OUTSIDE RECORDS SUMMARY | ~2019-07-17 | XMS | Encounter Summary ---
Demographics + + + | Address | [address] | | | [place] [address] | + + + | Home Phone | | + + + | Preferred Language | Unknown | + + + | Marital Status | | + + + | Christianity Affiliation | Unknown | + + + [...] [place] | | | | | [address] | | + + + + + | Beatrice Paulson | ECON | [address] | | | | | [place] | | | | | [address] | | + + + + + Care Team Providers + +------+ + | Care Senior Grants Officer Name | Role | Phone | [...] | Specialty | Physical | Diagnoses | [place], | | | | Services | Therapy | Lumbar | Wilton Alarcon DO | | | | Required | | spondylosis | [address] | | | | | | Lumbar | [address] | | | | | | stenosis | [place] | | | | | | Lumbar | [address] | | | | | | radicular | Phone: | | | | | | pain | [phone] | | | | | | Lumbago | Fax: | | | | | | | [phone] | | +--------+ + + + + + Encounter Details +--------+ + + + + | Date | Type | Department | Care Team | Description | +--------+ + + + + | 02/16/ | Orders Only | [facility] | Wilton Smith, | Lumbar spondylosis | | 2013 | | NEUROSURGERY [address] | DO [address] | (Primary Dx); Lumbar | | | | [address] | [address] [place], [place] | stenosis; Lumbar | | | | [place], [place] | [address] | radicular pain; | | | | [address] | | Lumbago | | | | [phone] | | | +--------+ + + + [...] | | | | | [facility] | | | | | | [place] | | | | | | [address] | | | | | | | | +--------+---------+ + + + + + +--------+ + + | Name | Type | Priori | Associated Diagnoses | Order Schedule | | | | ty | | | + + +--------+ + + | Ambulatory referral | Outpatient | Routin | Lumbar spondylosis | 1 Occurrences | | to Physical Therapy | Referral | e | Lumbar stenosis | starting 02/16/2013 | | | | | Lumbar radicular | until 02/16/2014 | | | | | pain Lumbago | | + + +--------+ + + documented as of this encounter Visit Diagnoses + + | Diagnosis | + + | 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
--- OUTSIDE RECORDS SUMMARY | ~2019-07-17 | XMS | Encounter Summary ---
Demographics + + + | Address | [address] | | | [place] [address] | + + + | Home Phone | | + + + | Preferred Language | Unknown | + + + | Marital Status | | + + + | Christianity Affiliation | Unknown | + + + | Race | Unknown | + + + | Ethnic Group | Unknown | + + + Author + + + | Author | [facility] | | | and [place] | + + + | Organization | [facility] | | | and [place] | + + + | Address | Unknown | + + + | Phone | Unavailable | + + + Support + + + + + | Name | Relationship | Address | Phone | + + + + + | Veronica Anderson | ECON | [place] | | | | | [address] | | + + + + + | Beatrice Paulson | ECON | [address] | | | | | [place] | | | | | [address] | | + + + + + Care Team Providers + +------+ + | Care Ride Mechanic Name | Role | Phone | + [...] Closed | | Radiology | Diagnoses | Pranav Villar, | | | | | | PAD | DNP [address] | | | | | | (peripheral | [address] | | | | | | artery | [place] [address] | | | | | | disease) | [place], [place] | | | | | | (HCC) | [address] | | | | | | Procedures | Phone: | | | | | | VAS Lwr Ext | [phone] | | | | | | Art Lt w CHRIS | Fax: | | | | | | Multi Lvl | [phone] | | +--------+--------+ + + + + Reason for Visit + + + | Reason | Comments | + + + | Follow-up | | + + + Encounter Details +--------+ + + + + | Date | Type | Department | Care Team | Description | +--------+ + + + + | 04/12/ | Telephone | [facility] | Courtney Hines, | Follow-up | | 2019 | | VASCULAR SURGERY | Child Care Attendant | | | | | [address] | | | | | | [place] | | | | | | [address] | | | | | | [phone] | | | +--------+ + + + [...] [address] | | | | | | [facility] | | | | | | [place] | | | | | | [address] | | | | | | | | +--------+---------+ + + + documented as of this encounter Results VAS Lwr Ext Art Lt w CHRIS [...] Diagnosis, Madonna, [employer], 2002, | | | [place] Signed by: Na Blanco, Samir Sign Date/Time: | | | 04/27/2019 10:41 [...] | | | analysis: Left lower extremity: HEAD GAUGE UNIT OPERATOR prox: 196, triphasic DFA | | | prox: 141, triphasic SFA prox: 152, triphasic SFA Mid: 99, triphasic | | | SFA dist: 96, triphasic Pop mid: 114, triphasic CARLOS prox: 106, | | | triphasic CARLOS dist: 97, triphasic ECONOMICS CONSULTANT prox: 101, triphasic ECONOMICS CONSULTANT | | | dist: 53, triphasic Peroneal [...] | | Left lower extremity: | | HEAD GAUGE UNIT OPERATOR prox: 196, triphasic | | DFA prox: 141, triphasic | | SFA prox: 152, triphasic | | SFA Mid: 99, triphasic | | SFA dist: 96, triphasic | | Pop mid: 114, triphasic | | CARLOS prox: 106, triphasic | | CARLOS dist: 97, triphasic | | ECONOMICS CONSULTANT prox: 101, triphasic | | ECONOMICS CONSULTANT dist: 53, triphasic | | Peroneal prox: [...] | | | | Signed by: Na Blanco Shawn | | Sign Date/Time: 04/27/2019 10:41 AM | + + + +---------+ + + | Performing | Address | City/State/Zipcode | Phone Number | | Organization | | | | + +---------+ + + | [facility] | | | | + +---------+ + + documented in this encounter Visit Diagnoses + + | Diagnosis | + + | PAD (peripheral artery disease) (HCC) - Primary Unspecified disorders of arteries and | | arterioles | + + documented in this encounter"
--- OUTSIDE RECORDS SUMMARY | ~2019-07-17 | XMS | Encounter Summary ---
Demographics + + + | Address | [address] | | | [place] [address] | + + + | Home Phone | | + + + | Preferred Language | Unknown | + + + | Marital Status | | + + + | Nondenominational Affiliation | Unknown | + + + | Race | Unknown | + + + | Ethnic Group | Unknown | + + + Author + + + | Author | [facility] | | | and [place] | + + + | Organization | [facility] | | | and [place] | + + + | Address | Unknown | + + + | Phone | Unavailable | + + + Support + + + + + | Name | Relationship | Address | Phone | + + + + + | Veronica Anderson | ECON | [place] | | | | | [address] | | + + + + + | Beatrice Paulson | ECON | [address] | | | | | [place] | | | | | [address] | | + + + + + Care Team Providers + +------+ + | Care Manager Card Name | Role | Phone | + +------+ + | Venkata Pettit MD | PCP | | + +------+ + Reason for Visit + + + | Reason | Comments | + + + | Follow-up | Physical Therapy | + + + Encounter Details +--------+---------+ + + + | Date | Type | Department | Care Team | Description | +--------+---------+ + + + | 09/09/ | Office | [facility] | Alex Cutler, | Chronic neck pain | | 2018 | Visit | PH[address]SIATRY [address] | PA-C [address] | (Primary Dx); S/P | | | | [address] | [address] [place] | cervical spinal | | | | [place], [place] | [place] [address] | fusion | | | | [address] | [phone] | | | | | [phone] | | | +--------+---------+ + + + [...] + + + | Blood Pressure | 111/66 | 09/09/2017 10:00 AM | | | | | PDT | | + + + + + | Pulse | 85 | 09/09/2017 10:00 AM | | | | | PDT [...] + + + + | Weight | 126.5 kg (278 lb 14 | 09/09/2017 10:00 AM | | | | oz) | PDT | | + + + + + | Height | 172.7 cm (5' 8") | 09/09/2017 10:00 AM | | | | | PDT | | + + + + + | Body Mass Index | 42.4 | 09/09/2017 10:00 AM | | | | | PDT | | + + + + + documented in this encounter Patient Instructions Patient Instructions Alex Cutler PA-C - 09/09/2017 10:00 AM PDTContinue progress with PT Back Basics: A Healthy Spine A healthy spine supports the body while letting it move freely. It does this with the help of three natural curves. Strong, flexible muscles help, too. They support the spine by keepi ng its curves properly aligned. The disks that cushion the bones of your spine also play a r ole in back fitness. Three natural curves The spine is made of bones (vertebrae) and pads of soft tissue (disks). These parts are arr anged in three curves: cervical, thoracic, and lumbar. When properly aligned, these curves k eep your body balanced. They also support your body when you move. By distributing your weig ht throughout your spine, the curves make back injuries less likely. Strong, flexible muscles Strong, flexible back muscles help support the three curves of the spine. They do so by hol ding the vertebrae and disks in proper alignment. Strong, flexible abdominal, hip, and leg m uscles also reduce strain on the back. The lumbar curve The lumbar curve is the hardest-working part of the spine. It carries more weight and moves the most. Aligning this curve helps prevent damage to vertebrae, disks, and other parts of the spine. Cushioning disks Disks are the soft pads of tissue between the vertebrae. The disks absorb shock caused by m ovement. Each disk has a spongy center (nucleus) and a tougher outer ring (annulus). Movemen t within the nucleus allows the vertebrae to rock back and forth on the disks. This provides the flexibility needed to bend and move. Date Last Reviewed: 11/28/201419996055-1167 [employer] [address] [place] [id number]. All righ ts reserved. This information is not intended as a substitute for professional medical care. Always follow your healthcare professional's instructions. documented in this encounter Progress Notes Alex Cutler PA-C - 09/09/2017 10:00 AM PDTFormatting of this note might be different fro m the original. CHIEF COMPLAINT: Chief Complaint Patient presents with Follow-up Physical Therapy HISTORY OF PRESENT ILLNESS: The patient is a 76 y.o. female being seen today in follow up for complaints chronic neck pain. Patient was referred to physical therapy for last appoint ment. She reports physical therapy has significantly improved her symptoms and she currentl y rates her pain as a 1-2 out of 10. The patient has prior history of cervical [...] significant improvement in her symptoms with the cervical injection (C7-T1 I L ADE left of midline). The patient does not describe numbness. She does not report weakness. She has tried PT and NSAIDS. Prior cervical spinal fusion performed by Dr. Justen nichole on 10/10/2009. The patient had one prior C7-T1 ILESI left of midline as mentioned above. The patient continues to do home stretches and well as see her physical therapist periodical ly but not for quite some time. Patient's medications, allergies, past medical, surgical, social [...] tablet Take 20 mg by mouth nightly. No current facility-administered medications for this visit. ALLERGIES: Allergies Allergen Reactions Pregabalin REVIEW OF SYSTEMS: The patient reported no recent illnesses, no falls, no balance or coordination difficulty. She also denies stomach pain, bowel and bladder dysfunction, headaches, dizziness or any ot her major changes in her health recently. PHYSICAL EXAMINATION: Blood pressure 111/66, pulse 85, height 1.727 m (5' 8"), weight 126.5 kg (278 lb 14 oz). Markus dy mass index is 42.4 kg/m. GENERAL: The patient is well developed [...] has no apparent deficits with short or terminal operations supervisor memory. She has appropriate fund of knowledge Cranial nerves 2-12 appear grossly intact. Sensory exam does not show diminished sensation to light touch in the upper and lower extre mities. REFLEX: RIGHT LEFT BICEPS 2+ 2+ BRACHIORADIALIS 2+ 2+ MUSCULOSKELETAL There is no major palpable deformity of the spine. Range of motion testing of the cervical spine was reduced with rotation as well as lateral flexion. Spurling sign was negative. Shoulder examination shows [...] with the patient today during the visit. TheM RI of the cervical spine from 12/14/2015 shows the prior cervical fusion at C5-C6. There is also DDD at other levels resulting in various degrees of central canal and foraminal stenosi s range up to moderately severe, primarily on the left, including at the prior operative lev el, C5-C6. ASSESSMENT: Encounter Diagnoses Name Primary? Chronic neck pain Yes S/P cervical spinal fusion PLAN: 1) Today we discussed the patient's differential diagnosis with the likely primary issue be ing chronic neck pain. Patient's description of symptoms, physical exam, and imaging sugges t this diagnosis at this time. 2) I counseled patient on treatment options which included conservative self management usi ng OTC NSAIDs/Ice and heat packs, physical therapy, prescription medications, epidural stero id injection, as well as possible surgical intervention. 3) Imaging: As above 4) The patient has had significant conservative care including medications (NSAIDS and narc otics), PT (multiple sessions over the years) and respiratory care technician. Unfortunately Kassie Bear continues to have significant discomfort. It appears to me that the pain is primar theresa coming from chronic neck pain. I encouraged patient to continue physical therapy as she has noted significant improvement in symptoms. 5) Patient will follow up with me in an as-needed basis to discuss any imaging and/or progr ess with today's treatment plan. 6) If current treatment plan is insufficient for symptom relief we could try C7-T1 IL ADE l eft of midline as the next therapy option. I spent 20 minutes in visit with Kassie Bear today with the majority of time spent co unselling the patient on her diagnosis, options for her care, and coordinating her care. ELECTRONICALLY EDITED AND SIGNED BY: Alex Cutler PA-C, 09/09/2017 documented in this en counter Plan of Treatment +--------+---------+ + + + [...] [place] | | | | | | [address] | | | | | | | | +--------+---------+ + + + documented as of this encounter Visit Diagnoses + + | Diagnosis | + + | Chronic neck pain - Primary Cervicalgia | + + | S/P cervical spinal fusion Arthrodesis status | + + documented in this encounter
--- OUTSIDE RECORDS SUMMARY | ~2019-07-17 | XMS | Encounter Summary ---
Demographics + + + | Address | [address] | | | [place] [address] | + + + | Home Phone | | + + + | Preferred Language | Unknown | + + + | Marital Status | | + + + | Religion Affiliation | Unknown | + + + | Race | Unknown | + + + | Ethnic Group | Unknown | + + + Author + + + | Author | [facility] | | | and [place] | + + + | Organization | [facility] | | | and [place] | + + + | Address | Unknown | + + + | Phone | Unavailable | + + + Support + + + + + | Name | Relationship | Address | Phone | + + + + + | Veronica Anderson | ECON | [place] | | | | | [address] | | + + + + + | Beatrice Paulson | ECON | [address] | | | | | [place] | | | | | [address] | | + + + + + Care Team Providers + +------+ + | Care Document Control Coordinator Name | Role | Phone | + +------+ + | Parvez Vail MD | PCP | | + +------+ + Encounter Details +--------+ + + + + | Date | Type | Department | Care Team | Description | +--------+ + + + + | 04/02/ | Orders Only | [facility] | Breana Charles | Persistent atrial | | 2020 | | CARDIOLOGY [place] | [address] | fibrillation (HCC) | | | | [address] | [address] | (Primary Dx) | | | | [place], [place] | [address] [place], [place] | | | | | [address] | [address] | | | | | [phone] | | | +--------+ + + + [...] | | | | | | [address] | | | | | | [place] | | | | | | [address] | | | | | | | | +--------+---------+ + + + documented as of this encounter Visit Diagnoses + + | Diagnosis | + + | Persistent atrial fibrillation (HCC) - Primary Atrial fibrillation | + + documented in this encounter"
--- OUTSIDE RECORDS SUMMARY | ~2019-07-17 | XMS | Encounter Summary ---
Demographics + + + | Address | [address] | | | [place] [address] | + + + | Home Phone [...] [place] | | | | | [address] | | + + + + + | Beatrice Paulson | ECON | [address] | | | | | [place] | | | | | [address] | | + + + + + Care Team Providers + +------+ + | Care Pet Nutrition Specialist Name | Role | Phone | + +------+ + PCP | Unavailable | + +------+ + Encounter Details +--------+ + + + + | Date | Type | Department | Care Team | Description | +--------+ + + + + | 08/18/ | Hospital | [facility] | | | | 2009 | Encounter | MED CTR XRAY [address] | | | | | | [place] | | | | | | [place] [address] | | | | | | [phone] | | | +--------+ + + + [...] [place] | | | | | | [id number] | | | | | | | | +--------+---------+ + + + documented as of this encounter Visit Diagnoses Not on filedocumented in this encounter"
--- OUTSIDE RECORDS SUMMARY | ~2019-07-17 | XMS | Encounter Summary ---
Demographics + + + | Address | [address] | | | [place] [address] | + + + | Home Phone | | + + + | Preferred Language | Unknown | + + + | Marital Status | | + + + | Pentecostal Affiliation [...] [place] | | | | | [address] | | + + + + + | Beatrice Paulson | ECON | [address] | | | | | [place] | | | | | [address] | | + + + + + Care Team Providers + +------+ + | Care Dock Supervisor Name | Role | Phone | + +------+ + | Parvez Vail MD | PCP | | + +------+ + Reason for Visit + + + | Reason | Comments | + + + | Appointment | 07/20/19 | + + + Encounter Details +--------+ + + + + | Date | Type | Department | Care Team | Description | +--------+ + + + + | 07/14/ | Telephone | [facility] | Pranav Villar, [place] | Appointment (07/20/19) | | 2020 | | VASCULAR SURGERY | [address] | | | | | [address] | [place], [place] | | | | | [place], [place] | [address] | | | | | [address] | | | | | | [phone] | | | +--------+ + + + [...] [place] | | | | | | [address] | | | | | | | | +--------+---------+ + + + documented as of this encounter Visit Diagnoses Not on filedocumented in this encounter"
--- OUTSIDE RECORDS SUMMARY | ~2019-07-17 | XMS | Encounter Summary ---
Demographics + + + | Address | [address] | | | [place] [address] | + + + | Home Phone | | + + + | Preferred Language | Unknown | + + + | Marital Status | | + + + | Yazidi Affiliation | Unknown | + + + | Race | Unknown | + + + | Ethnic Group | Unknown | + + + Author + + + | Author | [facility] | | | and [place] | + + + | Organization | [facility] | | | and [place] | + + + | Address | Unknown | + + + | Phone | Unavailable | + + + Support + + + + + | Name | Relationship | Address | Phone | + + + + + | Veronica Anderson | ECON | [place] | | | | | [address] | | + + + + + | Beatrice Paulson | ECON | [address] | | | | | [place] | | | | | [address] | | + + + + + Care Team Providers + +------+ + | Care Rn Camp Name | Role | Phone | + [...] Description | +--------+---------+ + + + | 05/25/ | Office | [facility] | Pranav Villar, [place] | Pseudoaneurysm | | 2020 | Visit | VASCULAR SURGERY | [address] | following procedure | | | | [address] | [place] | (HCC) (Primary Dx); | | | | [place] | [address] | Groin hematoma, | | | | [address] | | subsequent | | | | [phone] | | encounter; PAD | | | | | | (peripheral artery | | | | | | disease) (HCC) | +--------+---------+ + + + Social [...] + + + | Blood Pressure | 134/71 | 05/26/2019 11:29 AM | | | | | PDT | | + + + + + | Pulse | 70 | 05/26/2019 11:29 AM | | | | | PDT | | + + + + + | Temperature | 36 C (96.8 F) | 05/26/2019 11:29 AM | | | | | PDT | | + + + + + | Respiratory Rate | - | - | | + + + + + | Oxygen Saturation | 91% | 05/26/2019 11:29 AM | | | | | PDT | | + + + + + | Inhaled Oxygen | - | - | | | Concentration | | | | + + + + + | Weight | - | - | | + + + + + | Height | - | - | | + + + + + | Body Mass Index | - | - | | + + + + + documented in this encounter Progress Notes Pranav Villar DNP - 05/26/2019 11:30 AM [facility] [address] [place] [address] DATE OF VISIT: 05/26/2019 PATIENT NAME: Kassie Velasquez Marianela : 1940; AGE: 78 y.o.; Sex:F PHONE NUMBER: ; ; PROVIDER: Pranav Villar DNP PRIMARY CARE / REFERRING PHYSICIAN: No ref. provider found / Parvez Vail MD / [address] / [place] [address] REASON FOR EVALUATION / CHIEF COMPLAINT: Vascular Surgery Postoperative Visit for left groin pseudoaneurysm The patient presents today for a Vascular Surgery Postoperative Visit. The patient develope d left groin pain and pseudoaneurysm s/p atrial fib ablation by Dr. Jamil, she presented to the ED on 04/03/2019. CTA showed pseudoaneurysm from left profunda femoris artery with a l arge hematoma. She underwent the following procedure by Dr. Mullen on 04/04/2019: Left lower extremity arteriogram with catheter in proximal profunda femoral artery Left groin distal external iliac, common femoral, superficial femoral and profunda femoral artery down to 3rd order branches exposure Suture ligation of distal profunda femoral arteriotomy Evacuation of large anterior thigh hematoma with pulse lavage irrigation Right common femoral artery ultrasound guided access Wound vac left groin subcutaneous tissues 22cm x 2cmx 1cm deep Right common femoral artery Mynx closure device The patient's leg symptoms have gradually improved. The patient denies fever, wound draina ge, increasing redness, pus, increasing pain, increasing swelling. She has home health dress ing change three times a week. Her wound is getting smaller and more superficial. She is belem ing coumadin and statin daily. She reports intermittent sharp shooting pain in left thigh ar ea. VITAL SIGNS: BP 134/71 | Pulse 70 | Temp 36 C (96.8 F) (Temporal) | SpO2 91% PHYSICAL EXAM: Constitutional: Well nourished, no signs of distress Cardiovascular: Normal rate, regular rhythm. Pulmonary/Chest: No respiratory distress. No adventitious sounds. Abdominal: Soft. No abdominal distension or tenderness. Musculoskeletal: Normal range of motion. Extremities: No cyanosis or clubbing. Mild swelling in left thigh noted. Neurological: She is alert and oriented. VASCULAR: Palpable femoralpulses were present bilaterally. Left groin and upper thigh wou nds are healing well, no signs of infection noted. Consent for Photo The patient was advised that digital photos will be taken today of Kassie Bear.The pa skyler verbally consented to having these photos taken for purposes of documenting his/her co ndition. The patient understands that the images will be stored in their medical record. 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 W ound care instruction discussed: cleanse with NS, apply Aquacel Ag dressing, cover with dry dressing. Monitor for signs of infection. I've explained to the patient that in the event sh e experiences acute limb ischemia as evidenced by severe pain or coldness or worsening of cu rrent wounds, the patient should contact me immediately to return to my clinic or go to near by emergency room right away. Return to vascular clinic in 3 weeks for wound check. Pranav Villar DNP documented in t his encounter Plan of Treatment +--------+---------+ + + + | Date | Type | Specialty | Care Team | Description | +--------+---------+ + + + | 10/06/ | Office | Cardiology | Elvin Jamil | | 2019 | Visit | | MD Reji [address] | | | | | | [facility] | | | | | | [place] | | | | | | [id number] | | | | | | | | +--------+---------+ + + + documented as of this encounter Visit Diagnoses + + | Diagnosis | + + | Pseudoaneurysm following procedure (HCC) - Primary Vascular complications of other | | vessels | + + | Groin hematoma, subsequent encounter | + + | PAD (peripheral artery disease) ([facility]) Unspecified disorders of arteries and | | arterioles | + + documented in this encounter"
--- OUTSIDE RECORDS SUMMARY | ~2019-07-17 | XMS | Encounter Summary ---
Demographics + + + | Address | [address] | | | [place] [address] | + + + | Home Phone [...] | Beatrice Paulson | ECON | [address] | | | | | [place] | | | | | [address] | | + + + + + Care Team Providers + +------+ + | Care Aws Solution Architect Name | Role | Phone | + +------+ + | Venkata Pettit MD | PCP | | + +------+ + Reason for Visit + + + | Reason | Comments | + + + | Neck Pain | | + + + | Injections | | + + + Encounter Details +--------+ + + + + | Date | Type | Department | Care Team | Description | +--------+ + + + + | 10/31/ | Telephone | [facility] | Olayinka Rothman | Neck Pain; | | 2017 | | PHYSIATRY [address] | [address] | Injections | | | | [address] | [place], [place] | | | | | [place], [place] | [address] | | | | | [address] | | | | | | [phone] | | | +--------+ + + + [...] | | | | | | [facility] | | | | | | [place] | | | | | | [address] | | | | | | | | +--------+---------+ + + + documented as of this encounter Results [place] ADE Cervical Thoracic Interlaminar (12/02/2017 2:36 PM PDT) + + | Specimen | + + | | + + + + + | Narrative | Performed At | + + + | | [facility] | | 12/02/2017CERVICAL INTERLAMINAR EPIDURAL STEROID INJECTION CLINICAL | | [...] of 3 mL of normal saline and 1.5 mL | | | of 6 mg/mL betamethasone was infused. The patient tolerated the | [...] | Diagnosis | + + | Cervical stenosis of spinal canal - Primary Spinal stenosis in cervical region | + + | Neural foraminal stenosis of cervical spine Spinal stenosis in cervical region | + + documented in this encounter"
--- OUTSIDE RECORDS SUMMARY | ~2019-07-17 | XMS | Encounter Summary ---
Demographics + + + | Address | [address] | | | [place] [address] | + + + | Home Phone [...] [place] | | | | | [address] | | + + + + + | Beatrice Paulson | ECON | [address] | | | | | [place] | | | | | [address] | | + + + + + Care Team Providers + +------+ + | Care Electrical Engineering Technician Name | Role | Phone | + +------+ + | Venkata Pettit MD | PCP | | + +------+ + Reason for Visit +--------+ + | Reason | Comments | +--------+ + | Other | Imaging CT and MRI result review | +--------+ + Encounter Details +--------+---------+ + + + | Date | Type | Department | Care Team | Description | +--------+---------+ + + + | 04/07/ | Office | [facility] | Wilton Smith, | Midline low back | | 2015 | Visit | NEUROSURGERY [address] | DO [address] | pain without | | | | [address] | [address] [place], [place] | sciatica (Primary | | | | [place] | [address] | Dx); S/P lumbar | | | | [address] | | fusion | | | | [phone] | | | +--------+---------+ + + + [...] + + + | Blood Pressure | 137/73 | 04/07/2015 10:33 AM | | | | | PST | | + + + + + | Pulse | 63 | 04/07/2015 10:33 AM | | | | | PST | | + + + + + | Temperature | - | - | | + + + + + | Respiratory Rate | 16 | 04/07/2015 10:33 AM | | | | | PST | | + + + + + | Oxygen Saturation | - | - | | + + + + + | Inhaled Oxygen | - | - | | | Concentration | | | | + + + + + | Weight | 122.5 kg (270 lb) | 04/07/2015 10:33 AM | | | | | PST | | + + + + + | Height | 172.7 cm (5' 8") | 04/07/2015 10:33 AM | | | | | PST | | + + + + + | Body Mass Index | 41.05 | 04/07/2015 10:33 AM | | | | | PST | | + + + + + documented in this encounter Patient Instructions Patient Instructions Wilton Smith DO - 04/07/2015 10:57 AM PSTPlease follow-up with Dr. Rothman for bilateral L5-S1 facet blocks. Please follow-up with me as needed.Electronically signed by Wilton Smith DO at 6 10:58 AM PST documented in this encounter Progress Notes Wilton Smith DO - 04/07/2015 10:58 AM PSTFormatting of this note might be different fro m the original. Wilton Smith DO [address] [facility] [place] [place], [address] [place] [address] FAX: NEUROSURGERY FOLLOW-UP CHIEF COMPLAINT: Chief Complaint Patient presents with Other Imaging CT and MRI result review HISTORY OF PRESENT ILLNESS: The patient is [...] nt, but would like these issues addressed. Since her last visit her muscle spasm is significantly improved. She says physical therapy is helping very much. She does complain about inability to stand for more than 15 minutes wi thout supporting herself before she needs to sit down and rest due to low back ache. She wou ld like this addressed. She also mentions new neck and arm symptoms, but is more concerned a bout the low back pain currently. PAST MEDICAL HISTORY: Past Medical History Diagnosis Date Sacroiliitis (HCC) BACK PAIN, LUMBAR Spinal stenosis Trochanteric bursitis Degenerative disc disease Obesity Hypertension Hypercholesterolemia Hx of spinal fusion Myofascial pain syndrome Paresthesia Carpal tunnel syndrome PAST SURGICAL HISTORY: Past Surgical History Procedure Laterality Date Gallbladder surgery 12/18/2001 Lumbar spinal stenosis 05/24/2009 Neck surgery 10/10/[address] Ribera Cataract surgery 10/29/2011(left eye, Right eye 01/07/12 Lumbar fusion 01/13/13 L1-L5 Lumbar Fusion Laser eye surgery Bilateral 04/06/13 Secondary Cataracts Lasered Total knee arthroplasty Left 06/28/[address] 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 Cholecalciferol (VITAMIN D3 PO) Take 4,000 Units by mouth Daily. Magnesium 250 MG TABS Take 250 mg by mouth Daily. NAPROXEN PO Take 220 mg by mouth Daily. pravastatin (PRAVACHOL) 20 [...] Arthritis Mother INTERIM PHYSICAL EXAMINATION: Blood pressure 137/73, pulse 63, resp. rate 16, height 1.727 m (5' 8"), weight 122.471 kg ( 270 lb). Body mass index is 41.06 kg/(m^2). GENERAL: Kassie Bear is in no [...] immediate postoper ative films - improved arthrodesis. MRI of the lumbar spine from 02/09/15 demonstrates postoperative changes L1-5. There is int erval improvement of stenosis in the region. No acute process. CT scan of the lumbar spine from 02/09/15 demonstrates postoperative changes L1-5. There is evidence of arthrodesis L2-5. ASSESSMENT: S/P L1-5 fusion: Encounter Diagnoses Name Primary? Midline low back pain without sciatica Yes S/P lumbar fusion Past Medical History [...] activities as tolerated and as directed. She is doing much better with physical therapy in terms of muscle spasm. I will refer her to Dr. Rothman for bilateral L5-S1 facet injections. She will follow-up with me as needed. We talked about a new MRI and x-rays of the cervical spine in the future if those symptoms worsen. ELECTRONICALLY SIGNED BY: Wilton Smith DO, 04/07/2015 11:06 documented in this encounter Plan of Treatment +--------+---------+ + + + | Date | Type | Specialty | Care Team | Description | +--------+---------+ + + + | 10/06/ | Office | Cardiology | Elvin Jamil | | | 2019 | Visit | | [address] | | | | | | [facility] | | | | | | [place] | | | | | | [address] | | | | | | | | +--------+---------+ + + + documented as of this encounter Visit Diagnoses + + | Diagnosis | + + | Midline low back pain without sciatica - Primary | + + | S/P lumbar fusion Arthrodesis status | + + documented in this encounter
--- OUTSIDE RECORDS SUMMARY | ~2019-07-17 | XMS | Encounter Summary ---
Demographics + + + | Address | [address] | | | [place] [address] | + + + | Home Phone | | + + + | Preferred Language | Unknown | + + + | Marital Status | | + + + | Sabianism Affiliation | Unknown | + + + [...] [place] | | | | | [address] | | + + + + + | Beatrice Paulson | ECON | [address] | | | | | [place] | | | | | [address] | | + + + + + Care Team Providers + +------+ + | Care Alcoholic Counselor Name | Role | Phone | [...] | Specialty | Physical | Diagnoses | | OP ST | | | Services | Therapy | Spinal | Stephan, | RICK | | | Required | | stenosis, | Olayinka Duncan MD | HOSPITAL | | | | | cervical | [address] | [address] | | | | | region S/P | [address] [place] [address] | | | | | cervical | [place], [place] | [place], [place] | | | | | spinal | [address] | [address] | | | | | fusion | Phone: | Phone: | | | | | [place] | [phone] | [phone] | | | | | stenosis of | Fax: | Fax: | | | | | cervical | [phone] | [phone] | | | | | region Pes | | | | | | | ekta | | | | | | | bursitis | | | | | | | Procedures | | | | | | | HIM 06/26 | | | +--------+ + + + + + Reason for Visit + + + | Reason | Comments | + + + | Neck Pain | Worsening neck pain | + + + Encounter Details +--------+---------+ + + + | Date | Type | Department | Care Team | Description | +--------+---------+ + + + | 06/25/ | Office | [facility] | Olayinka Rothman | Chronic neck pain | | 2018 | Visit | PHYSIATRY [address] | TMD [address] | (Primary Dx); Spinal | | | | [address] | [address] [place] [address] | stenosis, cervical | | | | [place] | [address] | region; [place] | | | | [address] | | stenosis of cervical | | | | [phone] | | region; S/P | | | | | | cervical spinal | | | | | | fusion; Myofascial | | | | | | pain syndrome, | | | | | | cervical; Pes | | | | | | anserine | | | | | | bursitis-left | +--------+---------+ + + + Social History [...] + + + | Blood Pressure | 125/62 | 06/25/2017 7:59 AM | | | | | PDT | | + + + + + | Pulse | 56 | 06/25/2017 7:59 AM | | | | | PDT [...] | 126.5 kg (278 lb 14 | 06/25/2017 7:59 AM | | | | oz) | PDT | | + + + + + | Height | 172.7 cm (5' 8") | 06/25/2017 7:59 AM | | | | | PDT | | + + + + + | Body Mass Index | 42.4 | 06/25/2017 7:59 AM | | | | | PDT | | + + + + + documented in this encounter Progress Notes Olayinka Rothman MD - 06/25/2017 8:00 AM PDT CHIEF COMPLAINT: Chief Complaint Patient presents with Neck Pain Worsening neck pain HISTORY OF PRESENT ILLNESS: The patient is a 76 y.o. female being seen today in follow up for complaints chronic neck pain. When she was seen in the office on 01/15/2015 she was mostl y complaining of tingling and an annoying and uncomfortable burning or pins and needles sens ation in the left shoulder/upper arm above the elbow. At that time I offered the patient a t rial of a C7-T1 interlaminar epidural steroid injection left of midline which was performed by me on 03/08/2016. She reports 100% relief of her symptoms for the past 14 months. The sergey ent is here today reporting that her symptoms just started up again, however at this time matthieu christensen is mostly having pain in the neck and into the shoulders, not below the shoulder. The patient has prior history of cervical spine fusion for myelopathy. The patient also rep orts sensitivity to touch throughout her body. The patient has been doing her home exercise program since the last time she was here, reporting that she was taught some stretches that she has been doing everyday. That had been helping until recently. Her symptoms worsen with leaning with her chin jutted forward and her neck extended. She al so states sitting up such as when driving causes pain in her neck. Her symptoms improve when she tucks her chin in towards her body and pulls her head back. S he also reports significant improvement in her symptoms with the cervical injection mentione d above. Since the symptoms began she reports the symptoms have been persistent. She describes the p ain as an aching and tired feeling. She reports no significant ache or severe pain at this t keyonna but reports that the sensation is uncomfortable and annoying. At one point after sittin g with her head bent forward for prolonged period of time she didn't have severe pain that m jim her nauseous. The patient also describes shoulder symptoms that occur on both sides. She denies symptoms below the shoulders. The patient does not describe numbness. She does not report weakness. The patient has a separate complaint of left knee pain just below and medial to the patella which she reports is very tender even to the touch. The patient has had this knee replaced. She has tried PT and NSAIDS. Prior cervical spinal fusion performed by Dr. Justen nichole on 10/10/2009. The patient had one prior C7-T1 ILESI left of midline as mentioned above. The patient continues to do home stretches and well as see her physical therapist periodical ly but not for quite some time. She rates her pain level today as a 4-5 on a pain scale of 0-10. Patient's medications, allergies, past medical, surgical, social [...] PO Take 220 mg by mouth Daily. omeprazole (PRILOSEC) 20 mg capsule Take 20 mg by mouth Daily. pravastatin (PRAVACHOL) 20 [...] her health recently. PHYSICAL EXAMINATION: Blood pressure 125/62, pulse 56, height 1.727 m (5' 8"), weight 126.5 [...] has no apparent deficits with short or alf memory. She has appropriate fund of knowledge Cranial nerves 2-12 appear grossly intact. Sensory exam does not show diminished sensation to light touch in the upper and lower extre mities. REFLEX: RIGHT LEFT BICEPS 2+ 2+ BRACHIORADIALIS 2+ 2+ TRICEPS 2+ 2+ PATELLAR 2+ 2+ ACHILLES 1+ 1+ CUMMINS'S negative negative MUSCULOSKELETAL There is no major palpable deformity of the spine. Range of motion testing of the cervical spine was reduced with rotation as well as lateral flexion. Spurling sign was negative.Shoulder examination shows well preserved range of motio n with external rotation, internal rotation and abduction. Impingement testing was negativ e. There was no tenderness over the bicipital groove or over the AC joint. Speed's test wa s negative. Empty can test was negative. Strength testing, including strength testing of the infraspinatus, supraspinatus and subscapularis, in bilateral upper extremities showed 5/ 5 strength with no focal weakness. Increased muscle tone in the bilateral trapezius and rob ator scapula. RADIOGRAPHIC REVIEW: The patient's imaging was [...] Diagnoses Name Primary? Chronic neck pain Yes Spinal stenosis, cervical region [place] stenosis of cervical region S/P cervical spinal fusion Myofascial pain syndrome, cervical Pes anserine bursitis-left PLAN: 1. The patient had incredible improvement with the prior cervical epidural steroid injecti on. She asked today if I would be willing to consider repeat injections. I advised the patie nt that given the good response to the prior cervical epidural steroid injection a repeat in jection could be considered again in the near future. However, we usually do epidural steroi d injections for arm symptoms which she is not really having at this time. She was advised that because her pain level is still tolerable I would recommend trying to keep the steroids to a minimum and start with other treatment options.. 2. The patient has always had good relief with prior physical therapy sessions. She was ad vised that I would be willing to get her back in physical therapy for the pain in the neck a s well as the new complaint of left knee pain. I did advise her that based her physical exam ination today it appears that she is likely dealing with a pes anserine bursitis. 3. Medications such as gabapentin and Cymbalta were dicussed previously as these can help with myofascial pain and neuropathic pain. The patient would like to avoid medications. She was advised that if PT and injections fail to provide relief medications would be the next step. 4. Trigger point injections were discussed in detail with the patient today. She was advise d that these injections would be targeting the tight muscles in the upper trapezius and scap ular region. She was advised that if she continues to have significant discomfort in these a reas after PT has been completed I would recommend she come back into the office for trigger point injections. The epidural injection would only be repeated if she fails other treatmen ts or develops arm symptoms again. 5. A pes anserine bursa injection may also be considered if PT does not help with that jair n. 6. I would like to have the patient follow-up in the office in approximately 6-8 weeks. I a dvised her that I would likely be having her see my LAVINIA Cutler whom she met today and she was agreeable with that. I, Dr. Olayinka Rothman, personally performed the services described in this documentatio n, as scribed by SHAHBAZ Snider in my presence, and it is both accurate and complete. ELECTRONICALLY EDITED AND SIGNED BY: Olayinka Rothman MD, 06/25/2017 documented in this encounter Plan of Treatment +--------+---------+ + + + | Date | Type | Specialty | Care Team | Description | +--------+---------+ + + + | 10/06/ | Office | Cardiology | Elvin Jamil | | | 2020 | Visit | | [address] | | | | | | [facility] | | | | | | [place] | | | | | | [address] | | | | | | | | +--------+---------+ + + + + + +--------+ + + | Name | Type | Priori | Associated Diagnoses | Order Schedule | | | | ty | | | + + +--------+ + + | External Physical | Outpatient | Routin | Spinal Stenosis, | Ordered: 06/25/2017 | | Therapy - AMB | Referral | e | Cervical Region S/P | | | Referral | | | cervical spinal | | | | | | fusion [place]am[place] | | | | | | stenosis of cervical | | | | | | region Pes | | | | | | ansescobare | | | | | | bursitis-left | | + + +--------+ + + documented as of this encounter Visit Diagnoses + + | Diagnosis | + + | Chronic neck pain - Primary Cervicalgia | + + | Spinal stenosis, cervical region | + + | Foram[place] stenosis of cervical region Spinal stenosis in cervical region | + + | S/P cervical spinal fusion Arthrodesis status | + + | Myofascial pain syndrome, cervical Mylagia and myositis, unspecified | + + | Pes anserine bursitis-left Pes anserinus tendinitis or bursitis | + + documented in this encounter
--- OUTSIDE RECORDS SUMMARY | ~2019-07-17 | XMS | Encounter Summary ---
Demographics + + + | Address | [address] | | | [place] [address] | + + + | Home Phone | | + + + | Preferred Language | Unknown | + + + | Marital Status | | + + + | Protestant Affiliation | Unknown | + + + | Race | Unknown | + + + | Ethnic Group | Unknown | + + + Author + + + | Author | [facility] | | | and [place] | + + + | Organization | [facility] | | | and [place] | + + + | Address | Unknown | + + + | Phone | Unavailable | + + + Support + + + + + | Name | Relationship | Address | Phone | + + + + + | Veronica Anderson | ECON | [place] | | | | | [address] | | + + + + + | Beatrice Paulson | ECON | [address] | | | | | [place] | | | | | [address] | | + + + + + Care Team Providers + +------+ + | Care Salvager Name | Role | Phone | + [...] | | | | | | sm ([facility]) | | | | | | [...] + + | 04/07/ | Anesthesia | [facility] | Mj, | | | 2019 | Event | CENTER CV INTRA OP | DO Ebenezer [address] | | | | | [address] | [address] | | | | | [place], [place] | [place] [address] | | | | | [address] | [phone] | | | | | [phone] | | | +--------+ + + + [...] with 100 ml | Yamilka Elizondo | Daisa Martinez, | | Site | suction evacuator; [...] Barbara Dewey RN | | IV | newd-wmn-cftzwq catheter system; | Tigre Hinton RN | [...] 04/10/19 1100 by | | eral | kocp-aaf-qyrldf catheter system; | Josse Landeros | Val [...] | | | | | | [facility] | | | | | | [place] | | | | | | [address] | | | | | | | [...]
--- OUTSIDE RECORDS SUMMARY | ~2019-07-17 | XMS | Encounter Summary ---
Demographics + + + | Address | [address] | | | [place] [address] | + + + | Home Phone | | + + + | Preferred Language | Unknown | + + + | Marital Status | | + + + | Judaism Affiliation | Unknown | + + + | Race | Unknown | + + + | Ethnic Group | Unknown | + + + Author + + + | Author | [facility] | | | and [place] | + + + | Organization | [facility] | | | and [place] | + + + | Address | Unknown | + + + | Phone | Unavailable | + + + Support + + + + + | Name | Relationship | Address | Phone | + + + + + | Veronica Anderson | ECON | [place] | | | | | [address] | | + + + + + | Beatrice Paulson | ECON | [address] | | | | | [place] | | | | | [address] | | + + + + + Care Team Providers + +------+ + | Care Track Hoe Operator Name | Role | Phone | [...] [address] | [address] [place], [place] | | | | | [place], [place] | [address] | | | | | [address] | | | | | | [phone] | | | +--------+ + + + [...] [address] | | | | | | [facility] | | | | | | [place] | | | | | | [address] | | | | | | | | +--------+---------+ + + + documented as of this encounter Visit Diagnoses Not on filedocumented in this encounter"
--- OUTSIDE RECORDS SUMMARY | ~2019-07-17 | XMS | Encounter Summary ---
Demographics + + + | Address | [address] | | | [place] [address] | + + + | Home Phone | | + + + | Preferred Language | Unknown | + + + | Marital Status | | + + + | Pentecostal Affiliation | Unknown | + + + | Race | Unknown | + + + | Ethnic Group | Unknown | + + + Author + + + | Author | [facility] | | | and [place] | + + + | Organization | [facility] | | | and [place] | + + + | Address | Unknown | + + + | Phone | Unavailable | + + + Support + + + + + | Name | Relationship | Address | Phone | + + + + + | Veronica Anderson | ECON | [place] | | | | | [address] | | + + + + + | Beatrice Paulson | ECON | [address] | | | | | [place] | | | | | [address] | | + + + + + Care Team Providers + +------+ + | Care News Analyst Name | Role | Phone | + +------+ + | Parvez Vail MD | PCP | | + +------+ + Encounter Details +--------+ + + + + | Date | Type | Department | Care Team | Description | +--------+ + + + + | 04/02/ | Orders Only | [facility] | Breana Charles | Persistent atrial | | 2020 | | CARDIOLOGY [place] | [address] | fibrillation (HCC) | | | | [address] | [address] | (Primary Dx) | | | | [place], [place] | [address] [place], [place] | | | | | [address] | [address] | | | | | [phone] | | | +--------+ + + + [...] [place] | | | | | | [address] | | | | | | | | +--------+---------+ + + + documented as of this encounter Visit Diagnoses + + | Diagnosis | + + | Persistent atrial fibrillation (HCC) - Primary Atrial fibrillation | + + documented in this encounter"
--- OUTSIDE RECORDS SUMMARY | ~2019-07-17 | XMS | Encounter Summary ---
Demographics + + + | Address | [address] | | | [place] [address] | + + + | Home Phone | | + + + | Preferred Language | Unknown | + + + | Marital Status | Single | + + + | Lutheran Affiliation | Unknown | + + + | Race | White | + + + | Ethnic Group | Not or | + + + Author + + + | Author | [facility] | + + + | Organization | [facility] | + + + | Address | Unknown | + + + | Phone | Unavailable | + + + Support + + +---------+ + | Name | Relationship | Address | Phone | + + +---------+ + | Beatrice Paulson | ECON | Unknown | | + + +---------+ + Care Team Providers + +------+ + | Care Supervisor Lens Generating Name | Role | Phone | + +------+ + | Venkata Pettit MD | PCP | | + +------+ + Encounter Details +--------+ + + + + | Date | Type | Department | Care Team | Description | +--------+ + + + + | 10/08/ | Abstract | Neurology | Hyacinth Noel | | | 2012 | | [facility] [place] [facility] [address] | | | | | [facility] | [place] [facility], | | | | | and Healing [address] | [place] [address] | | | | | [place] Mailcode: | [phone] | | | | | [address] | | | | | | Health and Healing, | | | | | | [facility] | | | | | | [place], [place] | | | | | | [address] | | | | | | [phone] | | | +--------+ + + + [...]
--- OUTSIDE RECORDS SUMMARY | ~2019-07-17 | XMS | Encounter Summary ---
Demographics + + + | Address | [address] | | | [place] [address] | + + + | Home Phone [...] [place] | | | | | [address] | | + + + + + | Beatrice Paulson | ECON | [address] | | | | | [place] | | | | | [address] | | + + + + + Care Team Providers + +------+ + | Care Trimmer Operator Three Knife Name | Role | Phone | + [...] | | | | | sm ([facility]) | | | | | [...] + + | 04/03/ | Hospital | [facility] | Melvin Breana | Persistent atrial | | 2020 | Encounter | [facility] | A, [address]GS[address] | fibrillation (HCC) | | | | ULTRASOUND [address] | [address] [place] [address] | | | | | [address] | [address] [place], [place] | | | | | [place], [place] | [address] | | | | | [address] | | | | | | [phone] | | | +--------+ + + + [...] | | | | | [facility] | | | | | | [place] | | | | | | [address] | | | | | | | | +--------+---------+ + + + documented as of this encounter Procedures + +--------+ + + + | Procedure Name | Priori | Date/Time | Associated Diagnosis | Comments | | | ty | | | | + +--------+ + + + | VAS LOWER EXTREMITY | STAT | 04/03/2019 | Persistent atrial | Results for this | | ARTERIES LEFT | | 9:02 AM | fibrillation (HCC) | procedure are in the | | | | PST | | results section. | + +--------+ + + + documented in this encounter Results VAS Lower Extremity Arteries Left (04/03/2019 9:02 AM PST) + + | Specimen | + + | | + + + + + | Impressions | Performed At | + + + | 1. Trilobed extensive hemorrhage in the left groin containing a | [facility] | | tubular pseudoaneurysm with a mouth measuring 7 mm at the | | | catheterization site, 1 cm in diameter by 8.1 cm in length, with a | | | bulbous tip measuring 2.3 x 2.7 cm distally. 2. Above findings were | | | discussed with Dr. Jamil over the phone. The patient will be | | | sent to the emergency department. Signed by: Na Blanco, | | | Samir Sign Date/Time: 04/03/2019 9:03 AM | | + + + + + + | Narrative | Performed At | + + + | ULTRASOUND VENOUS DUPLEX, LEFT GROIN CLINICAL INFORMATION: | [facility] | | Heart catheterization 3 days ago. COMPARISON: LOWER EXTREMITY ANY | | | JOINT (03/04/2009); PROCEDURE: Four megahertz curvilinear | | | sonographic grayscale, color flow, spectral Doppler evaluation of the | | | left groin. FINDINGS: There is a trilobed hemorrhage in the left | | | groin measuring 5.2 x 3.1 by 4.4 cm at the catheterization site, | | | bulbous 10.1 by 4.6 x 6.2 cm hemorrhage just distal to this, and a | | | 3rd curvilinear hemorrhage anterior and distal to the above | | | hemorrhages measuring 11.0 x 6.2 x 2.9 cm. At the catheterization | | | site, there is a tubular pseudoaneurysm extending through the 1st 2 | | | lobes of the above hemorrhage, with a neck measuring 7 mm at the | | | groin spanning 8.1 cm in length by 1 cm diameter, with bulbous slow | | | flow is seen at the distal tip measuring 2.3 x 2.7 cm. | | + + + + + | Procedure Note | + + | Bhavin, Rad Results In - 04/03/2019 9:06 AM PST | | ULTRASOUND VENOUS DUPLEX, LEFT GROIN | | | | CLINICAL INFORMATION: | | Heart catheterization 3 days ago. | | | | COMPARISON: | | LOWER EXTREMITY ANY JOINT (03/04/2009); | | | | PROCEDURE: | | Four megahertz curvilinear sonographic grayscale, color flow, spectral | | Doppler evaluation of the left groin. | | | | FINDINGS: | | There is a trilobed hemorrhage in the left groin measuring 5.2 x 3.1 by | | 4.4 cm at the catheterization site, bulbous 10.1 by 4.6 x 6.2 cm | | hemorrhage just distal to this, and a 3rd curvilinear hemorrhage | | anterior and distal to the above hemorrhages measuring 11.0 x 6.2 x 2.9 | | cm. | | | | At the catheterization site, there is a tubular pseudoaneurysm | | extending through the 1st 2 lobes of the above hemorrhage, with a neck | | measuring 7 mm at the groin spanning 8.1 cm in length by 1 cm diameter, | | with bulbous slow flow is seen at the distal tip measuring 2.3 x 2.7 cm. | | | | IMPRESSION: | | 1. Trilobed extensive hemorrhage in the left groin containing a tubular | | pseudoaneurysm with a mouth measuring 7 mm at the catheterization site, | | 1 cm in diameter by 8.1 cm in length, with a bulbous tip measuring 2.3 | | x 2.7 cm distally. | | 2. Above findings were discussed with Dr. Jamil over the phone. The | | patient will be sent to the emergency department. | | | | | | | | Signed by: Na Blanco Shawn | | Sign Date/Time: 04/03/2019 9:03 AM | + + + +---------+ + [...]
--- OUTSIDE RECORDS SUMMARY | ~2019-07-17 | XMS | Encounter Summary ---
Demographics + + + | Address | [address] | | | [place] [address] | + + + | Home Phone | | + + + | Preferred Language | Unknown | + + + | Marital Status | | + + + | Evangelical Affiliation | Unknown | + + + [...] [place] | | | | | [address] | | + + + + + | Beatrice Paulson | ECON | [address] | | | | | [place] | | | | | [address] | | + + + + + Care Team Providers + +------+ + | Care Supply Officer Name | Role | Phone | [...] + + | 03/30/ | Telephone | [facility] | Elvin Jamil | Pre-Op | | 2019 | | CENTER CV INTRA OP | [address] | | | | | [address] | [facility] | | | | | [place], [place] | [place], [place] | | | | | [address] | [address] | | | | | [phone] | | | +--------+ + + + [...] [place] | | | | | | [id number] | | | | | | | | +--------+---------+ + + + documented as of this encounter Visit Diagnoses Not on filedocumented in this encounter"
--- OUTSIDE RECORDS SUMMARY | ~2019-07-17 | XMS | Encounter Summary ---
Demographics + + + | Address | [address] | | | [place] [address] | + + + | Home Phone | | + + + | Preferred Language | Unknown | + + + | Marital Status | | + + + | Moravian Affiliation | Unknown | + + + | Race | Unknown | + + + | Ethnic Group | Unknown | + + + Author + + + | Author | [facility] | | | and [place] | + + + | Organization | [facility] | | | and [place] | + + + | Address | Unknown | + + + | Phone | Unavailable | + + + Support + + + + + | Name | Relationship | Address | Phone | + + + + + | Veronica [place] | ECON | [place] | | | | | [address] | | + + + + + | Beatrice Paulson | ECON | [address] | | | | | [place] | | | | | [address] | | + + + + + Care Team Providers + +------+ + | Care Call Center Support Representative Name | Role | Phone | + +------+ + PCP | Unavailable | + +------+ + Encounter Details +--------+ + + + + | Date | Type | Department | Care Team | Description | +--------+ + + + + | 05/25/ | Hospital | [facility] | Justen Ribera | | | 2010 | Encounter | MED CTR XRAY [address] | [address] | | | | | [address] [place] [address] [place], [place] | | | | | [place] [address] | [address] | | | | | [phone] | | | | | | [...] | | | | [facility] | | | | | | [place] | | | | | | [address] | | | | | | | | +--------+---------+ + + + documented as of this encounter Procedures + +--------+ + + + | Procedure Name | Priori | Date/Time | Associated Diagnosis | Comments | | | ty | | | | + +--------+ + + + | XR LUMBAR SPINE 2 OR | | 05/25/2010 | | Results for this | | 3 VW | | 11:39 AM | | procedure are in the | | | | PDT | | results section. | + +--------+ + + + | XR CERVICAL SPINE 1 | | 05/25/2010 | | Results for this | | VIEW | | 11:39 AM | | procedure are in the | | | | PDT | | results section. | + +--------+ + + + documented in this encounter Results XR Lumbar Spine 2 or 3 Vw (05/25/2010 11:39 AM PDT) + + | Specimen | + + | | + + + + + | Narrative | Performed At | + + + | [facility] | [place] | | [address] [facility] | [facility] | | TWO VIEW LUMBAR SPINE SERIES, | DIAG IMG | | 1145 HOURS, 05/25/2010 CLINICAL HISTORY: STATUS POST LUMBAR | | | SURGERY. COMPARISON: 11/2009 FINDINGS: There is | | | stable alignment of the lumbar bodies status post L3-4 interlaminar | | | decompression and posterior interspinous Lanx plating and fusion. | | | There is stable grade 1 anterolisthesis of L4 over 5. The | | | interspinous fusion plate appears stable. IMPRESSION: 1. | | | STABLE POSTOPERATIVE CHANGES STATUS POST INTERLAMINAR | | | DECOMPRESSION AND INTERSPINOUS LANX PLATING AT L3-4. Dictated | | | Date/Time: 05/25/2010 13:09 Transcribed Date/Time: 05/25/2010 | | | 13:52 Pig Conveyor Operator: <Electronically Signed by Tulio Calderon | | | MD Jerson> 05/25/10 [id number] | | + + + + -+ | Procedure Note | + -+ | Don Delcid Conversion - 03/20/2013 2:42 PM [facility] | | Diagnostic Imaging Department [address] [facility] | | TWO VIEW LUMBAR SPINE SERIES, 1145 HOURS, 05/25/2010 | | CLINICAL HISTORY: STATUS POST LUMBAR SURGERY. COMPARISON: 11/2009 FINDINGS: There | | is stable alignment of the lumbar bodies status post L3-4 interlaminar decompression | | and posterior interspinous Lanx plating and fusion. There is stable grade 1 | | anterolisthesis of L4 over 5. The interspinous fusion plate appears stable. | | IMPRESSION: 1. STABLE POSTOPERATIVE CHANGES STATUS POST INTERLAMINAR DECOMPRESSION AND | | INTERSPINOUS LANX PLATING AT L3-4. Dictated Date/Time: 05/25/2010 13:09 Transcribed | | Date/Time: 05/25/2010 13:52 Pig Conveyor Operator: <Electronically Signed by Tulio | | Knvg Arthur MD> 05/25/10 [id number] | | | |FINDINGS: There is stable alignment of the lumbar bodies status post L3-4 interlaminar | |decompression and posterior interspinous Lanx plating and fusion. There is stable grade 1 | |anterolisthesis of L4 over 5. The interspinous fusion plate appears stable. | | | |IMPRESSION: | |1. STABLE POSTOPERATIVE CHANGES STATUS POST INTERLAMINAR | |DECOMPRESSION AND INTERSPINOUS LANX PLATING AT L3-4. | | | |Dictated Date/Time: 05/25/2010 13:09 | |Transcribed Date/Time: 05/25/2010 13:52 | |Pig Conveyor Operator: | |<Electronically Signed by Tulio Arthur MD> 05/25/10 1736 | + -+ + +---------+ + + | Performing | Address | City/State/Zipcode | Phone Number | | Organization | | | | + +---------+ + + | [facility] | | | | | [facility] | | | | + +---------+ + + XR Cervical Spine 1 Vw (05/25/2010 11:39 AM PDT) + + | Specimen | + + | | + + + + + | Narrative | Performed At | + + + | [facility] | [facility] | | [address] [facility] | [facility] | | TWO VIEW CERVICAL SPINE SERIES | DIAG IMG | | 1150 HOURS 05/25/2010 CLINICAL HISTORY: STATUS POST ACDF. | | | COMPARISON: December 2009. FINDINGS: There is stable | | | appearance of the cervical spine status post ACDF at C5-C6. Ventral | | | plate and screws are in good position. There is complete bony | | | incorporation of the intervertebral bone spacer. Alignment is | | | unremarkable. Adjacent levels are stable. Prevertebral soft tissues | | | are unremarkable. IMPRESSION: 1. ACDF C5-6. | | | Dictated Date/Time: 05/25/2010 13:10 Transcribed Date/Time: | | | 05/25/2010 13:46 Pig Conveyor Operator: <Electronically Signed | | | by Tulio Arthur MD> 05/25/10 1736 | | + + + + + | Procedure Note | + + | Bhavin, Rad Conversion - 03/20/2013 2:42 PM [facility] | | Diagnostic Imaging Department [address] [place] [address] | | TWO VIEW CERVICAL SPINE SERIES 1150 HOURS 05/25/2010 | | CLINICAL HISTORY: STATUS POST ACDF. COMPARISON: December 2009. FINDINGS: There | | is stable appearance of the cervical spine status post ACDF at C5-C6. Ventral plate and | | screws are in good position. There is complete bony incorporation of the | | intervertebral bone spacer. Alignment is unremarkable. Adjacent levels are stable. | | Prevertebral soft tissues are unremarkable. IMPRESSION: 1. ACDF C5-6. Dictated | | Date/Time: 05/25/2010 13:10 Transcribed Date/Time: 05/25/2010 13:46 Pig Conveyor Operator: | | <Electronically Signed by Tulio Arthur MD> 05/25/10 3524 | |COMPARISON: December 2009. | | | |FINDINGS: There is stable appearance of the cervical spine status post ACDF at C5-C6. Tre tral | |plate and screws are in good position. There is complete bony incorporation of the interve rtebral | |bone spacer. Alignment is unremarkable. Adjacent levels are stable. Prevertebral soft tis sues are | |unremarkable. | | | |IMPRESSION: | |1. ACDF C5-6. | | | |Dictated Date/Time: 05/25/2010 13:10 | |Transcribed Date/Time: 05/25/2010 13:46 | |Pig Conveyor Operator: | |<Electronically Signed by Tulio Arthur MD> 05/25/10 1736 | + + + +---------+ + + | Performing | Address | City/State/Zipcode | Phone Number | | Organization | | | | + +---------+ + + | [facility] | | | | | [facility] | | | | + +---------+ + + documented in this encounter Visit Diagnoses Not on filedocumented in this encounter"
--- OUTSIDE RECORDS SUMMARY | ~2019-07-17 | XMS | Encounter Summary ---
Demographics + + + | Address | [address] | | | [place] [address] | + + + | Home Phone [...] [place] | | | | | [address] | | + + + + + | Beatrice Paulson | ECON | [address] | | | | | [place] | | | | | [address] | | + + + + + Care Team Providers + +------+ + | Care Power Builder Developer Name | Role | Phone | [...] Description | +--------+---------+ + + + | 06/15/ | Office | [facility] | Pranav Villar, [place] | Pseudoaneurysm | | 2019 | Visit | VASCULAR SURGERY | [address] | following procedure | | | | [address] | [place] | ([facility]) (Primary Dx); | | | | [place] | [address] | Groin hematoma, | | | | [address] | | subsequent encounter | | | | [phone] | | | +--------+---------+ + + + [...] + + + | Blood Pressure | 152/74 | 06/16/2019 2:17 PM | | | | | PDT | | + + + + + | Pulse | 64 | 06/16/2019 2:17 PM | | | | | PDT | | + + + + + | Temperature | 36.4 C (97.6 F) | 06/16/2019 2:17 PM | | | | | PDT | | + + + + + | Respiratory Rate | - | - | | + + + + + | Oxygen Saturation | 98% | 06/16/2019 2:17 PM | | | [...] encounter Progress Notes Pranav Villar DNP - [facility]16/2019 2:[facility] [address] [place] [address] DATE OF VISIT: 06/16/2019 PATIENT NAME: Kassie Bear : 1940; AGE: 78 y.o.; Sex:F PHONE NUMBER: ; ; PROVIDER: Pranav Villar DNP PRIMARY CARE / REFERRING PHYSICIAN: No ref. provider found / Parvez Vail MD / [address] [facility] / [place] [address] REASON FOR EVALUATION / CHIEF COMPLAINT: Vascular [...] She has home health dress ing change 2 times a week. Her wound is getting smaller and more superficial. She is taking coumadin and statin daily. She reports intermittent sharp shooting pain in left thigh area. She reports swelling in her bilateral thigh, left more than right. VITAL SIGNS: BP 152/74 | Pulse 64 | Temp 36.4 C (97.6 F) (Temporal) | SpO2 98% PHYSICAL EXAM: Constitutional: Well nourished, no signs [...] healing well, no signs of infection noted. 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 P vilma is not ready to be discharged from home health yet, she is not comfortable taking car e of open wound by herself. Wound care instruction discussed: cleanse with NS, apply Aquacel Ag dressing, cover with dry dressing. Monitor for signs of infection. Recommend the patient to elevate her legs when sitting and may apply compression for leg swelling. I've explained to the patient that in the event she experiences acute limb ischemia as evidenced by severe pain or coldness or worsening of current wounds, the patient should contact me immediately to return to my clinic or go to nearby emergency room right away. Return to vascular clinic in 1 month for wound check. Pranav Villar DNP documented in t his encounter Plan of Treatment +--------+---------+ + + + | Date | Type | Specialty | Care Team | Description | +--------+---------+ + + + | 10/06/ | Office | Cardiology | Elvin Jamil | | 2019 | Visit | | MD [address] | | | | | | [facility] | | | | | | [facility] [place] | | | | | | [id number] | | | | | | | | +--------+---------+ + + + documented as of this encounter Visit Diagnoses + + | Diagnosis | + + | Pseudoaneurysm following procedure (HCC) - Primary Vascular complications of other | | vessels | + + | Groin hematoma, subsequent encounter | + + documented in this encounter"
--- OUTSIDE RECORDS SUMMARY | ~2019-07-17 | XMS | Encounter Summary ---
Demographics + + + | Address | [address] | | | [place] [address] | + + + | Home Phone | | + + + | Preferred Language | Unknown | + + + | Marital Status | | + + + | Orthodox Affiliation | Unknown | + + + | Race | Unknown | + + + | Ethnic Group | Unknown | + + + Author + + + | Author | [facility] | | | and [place] | + + + | Organization | [facility] | | | and [place] | + + + | Address | Unknown | + + + | Phone | Unavailable | + + + Support + + + + + | Name | Relationship | Address | Phone | + + + + + | Veronica Anderson | ECON | [place] | | | | | [address] | | + + + + + | Beatrice Paulson | ECON | [address] | | | | | [place] | | | | | [address] | | + + + + + Care Team Providers + +------+ + | Care Brassiere Cup Mold Cutter Name | Role | Phone | + [...] + + | 12/19/ | Telephone | [facility] | Lori Recinos DO | Pre-Op (Called pt | | 2019 | | CENTER INTRA OP | [address] | regarding pre op | | | | [address] | [place] | instructions) | | | | [facility] | [id number] | | | | | [address] | | | | | | [phone] | | | +--------+ + + + [...] [place] | | | | | | [id number] | | | | | | | | +--------+---------+ + + + documented as of this encounter Visit Diagnoses Not on filedocumented in this encounter"
--- OUTSIDE RECORDS SUMMARY | ~2019-07-17 | XMS | Encounter Summary ---
Demographics + + + | Address | [address] | | | [place] [address] | + + + | Home Phone | | + + + | Preferred Language | Unknown | + + + | Marital Status | | + + + | Sabianist Affiliation | Unknown | + + + [...] [place] | | | | | [address] | | + + + + + | Beatrice Paulson | ECON | [address] | | | | | [place] | | | | | [address] | | + + + + + Care Team Providers + +------+ + | Care Electric Appliance Installer Name | Role | Phone | [...] | | | | | sm ([facility]) | | | | | | | Essential | | | | | | | hypertension | | | | | | | Chronic | | | | | | | atrial | | | | | | | fibrillation | | | | | | | ([facility]) | | | | | | | Decreased | | | | | | | hemoglobin | | | | | | | Pseudoaneury | | | | | | | sm following | | | | | | | procedure | | | | | | | ([facility]) | | | | | [...] + + | 04/07/ | Surgery | [facility] | Elvin Jamil | CV EP CARDIOVERSION | | 2019 | | CENTER CV INTRA OP | MD Reji [address] | | | | | [address] | [facility] | | | | | [place], [place] | [place], [place] | | | | | [address] | [address] | | | | | [phone] | | | +--------+---------+ + + + [...] Buchanan MD - 04/10/2019 8:50 AM PST [facility] Service: Hospitalist Discharge Summary Date of Admission: [...] 49* 48* Radiology No results found. Disposition: longterm Condition: Fair Code Status: Full Code Discharge Procedure Orders Ambulatory Referral to [facility] Vascular Surgery Referral Priority: Routine Referral Type: Evaluate & Treat Referral Reason: Specialty Services Required Referred to Provider: BRIDGETTE LOPEZ Requested Specialty: Vascular Surgery Number of Visits Requested: 1 Follow up: Elvin Jamil MD [address] [place] [address] On 05/04/2019 Parvez Vail MD [address] [facility] [address] In 1 week [facility] [address] [facility] [id number] Breana Mullen, DO [address] SOL[place] [address] [place] [address] In 2 weeks Discharge Medications New Medications [...] Colbert MD - 04/09/2019 3:16 PM PST [facility] Service: Hospitalist Discharge Summary Date of Admission: [...] hours. No results for input(s): PHART, PO2ART, HHM7MUD, Z1ZUTXQB, BEART in the last 168 hours. Recent Labs Lab 04/09/19 0418 04/08/19 0421 04/07/19 0534 INR 1.2 1.1 1.1 PTT 33* 49* 48* No results for input(s): TSH in the last 168 hours. Invalid input(s): T3FREE, FREET4 No results for input(s): TROPONINT in the last 168 hours. Invalid input(s): CKTOTAL, TROPONINI, CKMBINDEX Radiology No results found. Disposition: longterm Condition: Fair Code Status: Full Code No discharge procedures on file. Follow up: Elvin Jamil MD [address] [place] [address] On 05/04/2019 Parvez Vail MD [address] [facility] [address] In 1 week [facility] [address] [facility] [id number] Discharge Medications New Medications Details enoxaparin 120 [...] 3:26 PM PSTPatient's discharge was delayed because [facility] did not have an opening today patient will be discharged to [facility] if she is medically stable. Received a call from Dr. Peters who advised to pack RBC transfusion to get a hemoglobin c lose to 9. roctorShekhar [facility] - 04/09/2019 2:45 PM PSTFormatting of this [...] to follow and modify therapy as indicated. Vla Holliday PharmD, BCPS 04/09/19 2:43 PM Iam Bustillo, [facility] - 04/09/2019 7:48 AM PSTFormatting of [...] fib post ablati on s/p DCCV with gnosticism of SR. Patient awake and alert seated [...] with the findings and plan of the [facility] practice provider/house staff with further assessment [...] Dain Colbert MD - 2:17 PM PST [facility] Service: Hospitalist Progress Note Hospital Day: LOS: [...] hours. No results for input(s): PHART, PO2ART, CVS4GID, X1PDLJSM, BEART in the last 168 hours. Recent [...] LEFT (04/03/2019); LOWER EXTREMITY ANY JOINT (03/04/2009); ND OCEDURE: Thin section axial images through the [...] Loya MD 04/08/2019 2:17 PM Iris Leon, [facility] - 04/08/2019 1:07 PM PSTFormatting of this [...] Barragan RN - 04/08/2019 11:55 AM PST [facility] Service: Wound Care NPWT Note Hospital Day: [...] Kumar DO - 04/08/2019 10:27 AM PST [facility] Progress Note Primary Care Physician: Parvez Vail [...] plan to follow up in Vascular [facility] in 2 weeks or sooner if [...] in dextrose 100 units/mL infusion 12 Units/kg/hr ([place]) Intravenous Continuou s Breana Mullen, DO 10.2 [...] mg Oral Daily - Warfarin Hany Nugent [facility] 5 mg a t 04/07/19 1732 warfarin [...] 04/07 with successful and thus far maintained gnosticism of sinus rhythm - converted to oral [...] with the findings and plan of the [facility] practice provider/house staff with further assessment [...] I, DO - 04/07/2019 8:00 PM PST [facility] Progress Note Primary Care Physician: Parvez Vail [...] Patient has been stable on home regimen 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 Thank You, Aubree Rueda PharmD, [facility] 04/07/2019 3:22 PM Dain Elaine MD - 04/07/2019 12:35 PM PSTFormatting of this note might be different from th e original. [facility] Service: Hospitalist Progress Note Hospital Day: LOS: [...] hours. No results for input(s): PHART, PO2ART, YIS2BOD, K4DXLFBP, BEART in the last 168 hours. Recent [...] LEFT (04/03/2019); LOWER EXTREMITY ANY JOINT (03/04/2009); ND OCEDURE: Thin section axial images through the [...] might be different from the ban taylor [facility] Service: Wound Care NPWT Note Hospital Day: [...] MD - 04/06/2019 1:40 PM PST . [facility] Service: Hospitalist Progress Note Hospital Day: LOS: 3 days SUBJECTIVE Patient Summary: Events Overnight: Patient reports left thigh pain. Denies any chest pain shortness of breath nausea vomiting. Overnight went into A. fib. Feels constipated. Scheduled Medications atenolol 50 mg Oral Daily cholecalciferol 4,000 Units Oral Daily cyanocobalamin 500 mcg Oral Daily docusate-senna 2 tablet Oral BID mineral ljt-mirssitv-nfrop (HOG) enema Rectal Once lidocaine 10 mL [...] hours. No results for input(s): PHART, PO2ART, UKK4NQA, M3YWDYOW, BEART in the last 168 hours. Recent [...] LEFT (04/03/2019); LOWER EXTREMITY ANY JOINT (03/04/2009); ND OCEDURE: Thin section axial images through the [...] Code Dain Loya MD 04/06/2019 1:40 PM [facility], [facility] - 04/06/2019 11:41 AM PSTFormatting of this [...] modify therapy as indication. Kizzy Thayer, PharmD, [facility] 04/06/19 11:41 AM Breana Kumar I, - 04/06/2019 11:37 AM PST . [facility] Progress Note Primary Care Physician: Parvez Vail [...] might be different from t dustin original. [facility] Progress Note Primary Care Physician: Parvez Vail [...] follow and modify therapy as indication. HANY NUEGNT RPH 2:17 PM 04/05/2019 Dain Colbert MD - 04/05/2019 12:54 PM PST [facility] Service: Hospitalist Progress Note Hospital Day: LOS: [...] hours. No results for input(s): PHART, PO2ART, JFG0PHT, A7KZCBZR, BEART in the last 168 hours. Recent [...] LEFT (04/03/2019); LOWER EXTREMITY ANY JOINT (03/04/2009); ND OCEDURE: Thin section axial images through the [...] might be different from the or iginal. [facility] Service: Hospitalist Progress Note Hospital Day: LOS: [...] hours. No results for input(s): PHART, PO2ART, YHZ6PVB, R1ZMPKCW, BEART in the last 168 hours. Recent [...] LEFT (04/03/2019); LOWER EXTREMITY ANY JOINT (03/04/2009); ND OCEDURE: Thin section axial images through the [...] monitor. Rosemary Carrero RN roctor, Val Duncan [facility] - 04/03/2019 8:25 PM PSTClinical Pharmacy Note: [...] [address] | | | | | | [facility] | | | | | | [place] | | | | | | [address] | | | | | | | [...] left | Ordered: 04/09/2019 | | to [facility] Vascular | Referral | e | [...] | | | | | performed at [facility] | | | | | | [address];[place], [place] | | | | | | [address] | | | | + + + + + + + + | Specimen | + + | Blood | + + + + + + + | Performing | Address | City/State/Zipcode | Phone Number | | Organization | | | | + + + + + | [facility] | [address] | [place] [address] | [phone] | + + + + + Phosphorus [...] | | | | | [place] [address] | | | | + + + + + + + + | Specimen | + + | Blood | + + + + + + + | Performing | Address | City/State/Zipcode | Phone Number | | Organization | | | | + + + + + | [facility] | [address] | [place] [address] | [phone] | + + + + + Comprehensive [...] | | | | | | MDRD IDND traceable | | | | | | equation.Testing | | | | | | performed at [facility], [address] | | | | | | [facility], | | | | | | [place] [address] | | | | + + + + + + + + | Specimen | + + | Blood | + + + + + + + | Performing | Address | City/State/Zipcode | Phone Number | | Organization | | | | + + + + + | [facility] | [address] | [place] [address] | [phone] | + + + + + CBC [...] 0.02Comment: Testing | 0.00 - 0.10 | [facility] | | | Absolute | performed at [facility], [address] | [address] | LABORATORY | | | | [address], | | | | | | [place] [address] | | | | + + + + + + + + | Specimen | + + | Blood | + + + + + + + | Performing | Address | City/State/Zipcode | Phone Number | | Organization | | | | + + + + + | [facility] | [address] | [place] [address] | [phone] | + + + + + Red [...] BANK | Testing performed at | | [facility] | | | COMMENT | [facility];[address] | | LABORATORY | | | | [address];[place] [address] | | | | + + + + + + + + | Specimen | + + | | + + + + + + + | Performing | Address | City/State/Zipcode | Phone Number | | Organization | | | | + + + + + | [facility] | [address] | [place] [address] | [phone] | + + + + + Type [...] + + + | BB BAND | [id number] | | [facility] | | | | | | LABORATORY | | + + + + + + | BB B[facility] | Testing performed at | | [facility] | | | | [facility];[address] | | LABORATORY | | | | [address];[place] [address] | | | | + + + + + + | UNIT # | [id number] | | [facility] | | | | [...] + + + | UNIT # | [id number] | | [facility] | | | | [...] | + + + + + | [facility] | [address] | [place] [address] | [phone] | + + + + + Protime INR (04/09/2019 4:18 AM PST) + + + + + + | Component | Value | Ref Range | Performed | Pathologist | | | | | At | Signature | + + + + + + | INR | 1.2Comment: REFERENCE | | [facility] | | | | RANGE:0.9 - [...] | | | | | performed at [facility];[address] | | | | | | [address];[place] | | | | | | [address] | | | | + + + + + + + + | Specimen | + + | Blood | + + + + + + + | Performing | Address | City/State/Zipcode | Phone Number | | Organization | | | | + + + + + | [facility] | [address] | [place] [address] | [phone] | + + + + + Phosphorus (04/09/2019 4:18 AM PST) + + + + + + | Component | Value | Ref Range | Performed | Pathologist | | | | | At | Signature | + + + + + + | Phosphorus | 4.0Comment: Testing | 2.3 - 4.8 mg/dL | [facility] | | | | performed at [facility];[address] | | LABORATORY | | | | [address];[place], [place] | | | | | | [address] | | | | + + + + + + + + | Specimen | + + | Blood | + + + + + + + | Performing | Address | City/State/Zipcode | Phone Number | | Organization | | | | + + + + + | [facility] | [address] | [place] [address] | [phone] | + + + + + Comprehensive [...] | | | | | performed at [facility];[address] | | | | | | [address] [facility];[place], [place] | | | | | | [address] | | | | + + + + + + + + | Specimen | + + | Blood | + + + + + + + | Performing | Address | City/State/Zipcode | Phone Number | | Organization | | | | + + + + + | [facility] | [address] [facility] | [place] [address] | [phone] | + + + + + CBC [...] | | | Absolute | performed at [facility];[address] | [address] | LABORATORY | | | | [address];[place] | | | | | | [address] | | | | + + + + + + + + | Specimen | + + | Blood | + + + + + + + | Performing | Address | City/State/Zipcode | Phone Number | | Organization | | | | + + + + + | [facility] | [address] | [place] [address] | [phone] | + + + + + PTT (04/09/2019 4:18 AM PST) + + + + + + | Component | Value | Ref Range | Performed | Pathologist | | | | | At | Signature | + + + + + + | PTT | 33 (H)Comment: Testing | 23 - 32 seconds | [facility] | | | | performed at [facility];[address] | | LABORATORY | | | | [address];[place] | | | | | | [address] | | | | + + + + + + + + | Specimen | + + | Blood | + + + + + + + | Performing | Address | City/State/Zipcode | Phone Number | | Organization | | | | + + + + + | [facility] | [address] | [place] [address] | [phone] | + + + + + Protime [...] | | | | | performed at [facility] | | | | | | [address] [facility];[place], [place] | | | | | | [address] | | | | + + + + + + + + | Specimen | + + | Blood | + + + + + + + | Performing | Address | City/State/Zipcode | Phone Number | | Organization | | | | + + + + + | [facility] | [address] | [place] [address] | [phone] | + + + + + Phosphorus (04/08/2019 4:21 AM PST) + + + + + + | Component | Value | Ref Range | Performed | Pathologist | | | | | At | Signature | + + + + + + | Phosphorus | 3.5Comment: Testing | 2.3 - 4.8 mg/dL | [facility] | | | | performed at [facility];[address] | | LABORATORY | | | | [address];[place], [place] | | | | | | [address] | | | | + + + + + + + + | Specimen | + + | Blood | + + + + + + + | Performing | Address | City/State/Zipcode | Phone Number | | Organization | | | | + + + + + | [facility] | [address] | [place] [address] | [phone] | + + + + + Comprehensive [...] | >60Comment: GFR <60: | >60 | [facility] | | | GFR | CHRONIC [...] | | | | | | MDRD IDND traceable | | | | | | equation.Testing | | | | | | performed at [facility] | | | | | | [employer];[place], [place] | | | | | | [address] | | | | + + + + + + + + | Specimen | + + | Blood | + + + + + + + | Performing | Address | City/State/Zipcode | Phone Number | | Organization | | | | + + + + + | [facility] | [address] | [place] [address] | [phone] | + + + + + CBC [...] | | | Absolute | performed at [facility];[address] | [address] | LABORATORY | | | | [address];[place] | | | | | | [address] | | | | + + + + + + + + | Specimen | + + | Blood | + + + + + + + | Performing | Address | City/State/Zipcode | Phone Number | | Organization | | | | + + + + + | [facility] | [address] | [place] [address] | [phone] | + + + + + PTT (04/08/2019 4:21 AM PST) + + + + + + | Component | Value | Ref Range | Performed | Pathologist | | | | | At | Signature | + + + + + + | PTT | 49 (H)Comment: Testing | 23 - 32 seconds | [facility] | | | | performed at [facility];[address] | | LABORATORY | | | | [address];[place] | | | | | | [address] | | | | + + + + + + + + | Specimen | + + | Blood | + + + + + + + | Performing | Address | City/State/Zipcode | Phone Number | | Organization | | | | + + + + + | [facility] | [address] | [place] [address] | [phone] | + + + + + ECG [...] | | | | | ONLY, -COMPUTER (254), | | | | | | editorial manager Dion Bueno | | | | | [...] Testing | 2.3 - 4.8 mg/dL | [facility] | | | | performed at [facility], [address] | | LABORATORY | | | | [address], | | | | | | [place] [address] | | | | + + + + + + + + | Specimen | + + | Blood | + + + + + + + | Performing | Address | City/State/Zipcode | Phone Number | | Organization | | | | + + + + + | [facility] | [address] | [place] [address] | [phone] | + + + + + Comprehensive [...] | >60Comment: GFR <60: | >60 | [facility] | | | GFR | CHRONIC [...] | | | | | | MDRD [facility] traceable | | | | | | equation.Testing | | | | | | performed at [facility], [address] | | | | | | [facility], | | | | | | [place] [address] | | | | + + + + + + + + | Specimen | + + | Blood | + + + + + + + | Performing | Address | City/State/Zipcode | Phone Number | | Organization | | | | + + + + + | [facility] | [address] | [place] [address] | [phone] | + + + + + Magnesium [...] | | | | | [place] [address] | | | | + + + + + + + + | Specimen | + + | Blood | + + + + + + + | Performing | Address | City/State/Zipcode | Phone Number | | Organization | | | | + + + + + | [facility] | [address] | [place] [address] | [phone] | + + + + + CBC [...] | | | Absolute | performed at [facility], [address] | K/uL | LABORATORY | | | | [address], | | | | | | [place] [address] | | | | + + + + + + + + | Specimen | + + | Blood | + + + + + + + | Performing | Address | City/State/Zipcode | Phone Number | | Organization | | | | + + + + + | [facility] | [address] | [place] [address] | [phone] | + + + + + PTT (04/07/2019 5:34 AM PST) + + + + + + | Component | Value | Ref Range | Performed | Pathologist | | | | | At | Signature | + + + + + + | PTT | 48 (H)Comment: Testing | 23 - 32 seconds | [facility] | | | | performed at [facility];[address] | | LABORATORY | | | | [address];[place] | | | | | | [address] | | | | + + + + + + + + | Specimen | + + | Blood | + + + + + + + | Performing | Address | City/State/Zipcode | Phone Number | | Organization | | | | + + + + + | [facility] | [address] | [place] [address] | [phone] | + + + + + Protime [...] | | | | | performed at [facility] | | | | | | [address];[place], [place] | | | | | | [address] | | | | + + + + + + + + | Specimen | + + | Blood | + + + + + + + | Performing | Address | City/State/Zipcode | Phone Number | | Organization | | | | + + + + + | [facility] | [address] | [place] [address] | [phone] | + + + + + PTT (04/06/2019 9:03 PM PST) + + + + + + | Component | Value | Ref Range | Performed | Pathologist | | | | | At | Signature | + + + + + + | PTT | 48 (H)Comment: Testing | 23 - 32 seconds | [facility] | | | | performed at [facility];[address] | | LABORATORY | | | | [address];[place] | | | | | | [address] | | | | + + + + + + + + | Specimen | + + | Blood | + + + + + + + | Performing | Address | City/State/Zipcode | Phone Number | | Organization | | | | + + + + + | [facility] | [address] | [place] [address] | [phone] | + + + + + PTT (04/06/2019 3:15 PM PST) + + + + + + | Component | Value | Ref Range | Performed | Pathologist | | | | | At | Signature | + + + + + + | PTT | 48 (H)Comment: Testing | 23 - 32 seconds | [facility] | | | | performed at [facility];[address] | | LABORATORY | | | | [address];[place] | | | | | | [address] | | | | + + + + + + + + | Specimen | + + | Blood | + + + + + + + | Performing | Address | City/State/Zipcode | Phone Number | | Organization | | | | + + + + + | [facility] | [address] | [place] [address] | [phone] | + + + + + PTT (04/06/2019 10:25 AM PST) + + + + + + | Component | Value | Ref Range | Performed | Pathologist | | | | | At | Signature | + + + + + + | PTT | 40 (H)Comment: Testing | 23 - 32 seconds | [facility] | | | | performed at [facility];[address] | | LABORATORY | | | | [address];[place] | | | | | | [address] | | | | + + + + + + + + | Specimen | + + | Blood | + + + + + + + | Performing | Address | City/State/Zipcode | Phone Number | | Organization | | | | + + + + + | [facility] | [address] | [place] [address] | [phone] | + + + + + ECG [...] | | | | | ONLY, -COMPUTER (001), | | | | | | editorial manager Destini Moy | | | | | [...] [facility] | | | | performed at [facility];[address] | | LABORATORY | | | | [address];[place] | | | | | | [address] | | | | + + + + + + + + | Specimen | + + | | + + + + + + + | Performing | Address | City/State/Zipcode | Phone Number | | Organization | | | | + + + + + | [facility] | [address] | [place] [address] | [phone] | + + + + + Protime INR (04/06/2019 4:13 AM PST) + + + + + + | Component | Value | Ref Range | Performed | Pathologist | | | | | At | Signature | + + + + + + | INR | 1.0Comment: REFERENCE | | [facility] | | | | RANGE:0.9 - [...] | | | | | performed at [facility];[address] | | | | | [address];[place] | | | | | | [address] | | | | + + + + + + + + | Specimen | + + | Blood | + + + + + + + | Performing | Address | City/State/Zipcode | Phone Number | | Organization | | | | + + + + + | [facility] | [address] | [place] [address] | [phone] | + + + + + Phosphorus (04/06/2019 4:13 AM PST) + + + + + + | Component | Value | Ref Range | Performed | Pathologist | | | | | At | Signature | + + + + + + | Phosphorus | 2.7Comment: Testing | 2.3 - 4.8 mg/dL | [facility] | | | | performed at [facility];[address] | | LABORATORY | | | | [address];[place] | | | | | | [address] | | | | + + + + + + + + | Specimen | + + | Blood | + + + + + + + | Performing | Address | City/State/Zipcode | Phone Number | | Organization | | | | + + + + + | [facility] | [address] | [place] [address] | [phone] | + + + + + Comprehensive [...] | >60Comment: GFR <60: | >60 | [facility] | | | GFR | CHRONIC [...] | | | | | performed at [facility];[address] | | | | | | [address];[place], [place] | | | | | | [address] | | | | + + + + + + + + | Specimen | + + | Blood | + + + + + + + | Performing | Address | City/State/Zipcode | Phone Number | | Organization | | | | + + + + + | [facility] | [address] | [place] [address] | [phone] | + + + + + CBC [...] | | | Absolute | performed at [facility];[address] | [address] | LABORATORY | | | | [employer];[place], [place] | | | | | | [address] | | | | + + + + + + + + | Specimen | + + | Blood | + + + + + + + | Performing | Address | City/State/Zipcode | Phone Number | | Organization | | | | + + + + + | [facility] | [address] | [place] [address] | [phone] | + + + + + Magnesium (04/06/2019 4:13 AM PST) + + + + + + | Component | Value | Ref Range | Performed | Pathologist | | | | | At | Signature | + + + + + + | Magnesium | 1.9Comment: Testing | 1.7 - 2.4 mg/dL | [facility] | | | | [facility] at [facility] [facility] | | LABORATORY | | | | [address];[place] | | | | | | [address] | | | | + + + + + + + + | Specimen | + + | Blood | + + + + + + + | Performing | Address | City/State/Zipcode | Phone Number | | Organization | | | | + + + + + | [facility] | [address] | [place] [address] | [phone] | + + + + + PTT (04/05/2019 10:01 PM PST) + + + + + + | Component | Value | Ref Range | Performed | Pathologist | | | | | At | Signature | + + + + + + | PTT | 41 (H)Comment: Testing | 23 - 32 seconds | [facility] | | | | performed at [facility] | | LABORATORY | | | | [address];[place] | | | | | | [address] | | | | + + + + + + + + | Specimen | + + | Blood | + + + + + + + | Performing | Address | City/State/Zipcode | Phone Number | | Organization | | | | + + + + + | [facility] | [address] | [place] [address] | [phone] | + + + + + PTT (04/05/2019 3:52 PM PST) + + + + + + | Component | Value | Ref Range | Performed | Pathologist | | | | | At | Signature | + + + + + + | PTT | 55 (H)Comment: Testing | 23 - 32 seconds | [facility] | | | | performed at [facility] | | LABORATORY | | | | [address];[place] | | | | | | [address] | | | | + + + + + + + + | Specimen | + + | Blood | + + + + + + + | Performing | Address | City/State/Zipcode | Phone Number | | Organization | | | | + + + + + | [facility] | [address] | [place] [address] | [phone] | + + + + + CBC [...] LABORATORY | | | | performed at [facility], [address] | | | [address], | | | | | | [place] [address] | | | | + + + + + + + + | Specimen | + + | Blood | + + + + + + + | Performing | Address | City/State/Zipcode | Phone Number | | Organization | | | | + + + + + | [facility] | [address] | [place] [address] | [phone] | + + + + + PTT (04/05/2019 8:28 AM PST) + + + + + + | Component | Value | Ref Range | Performed | Pathologist | | | | | At | Signature | + + + + + + | PTT | 66 (H)Comment: Testing | 23 - 32 seconds | [facility] | | | | performed at [facility] | | LABORATORY | | | | [address];[place] | | | | | | [address] | | | | + + + + + + + + | Specimen | + + | Blood | + + + + + + + | Performing | Address | City/State/Zipcode | Phone Number | | Organization | | | | + + + + + | [facility] | [address] | [place] [address] | [phone] | + + + + + CBC [...] | | LABORATORY | | | | [facility], [address] | | | | | | [place] | | | | | | [address] | | | | + + + + + + + + | Specimen | + + | Blood | + + + + + + + | Performing | Address | City/State/Zipcode | Phone Number | | Organization | | | | + + + + + | [facility] | [address] | [place] [address] | [phone] | + + + + + Phosphorus (04/05/2019 2:18 AM PST) + + + + + + | Component | Value | Ref Range | Performed | Pathologist | | | | | At | Signature | + + + + + + | Phosphorus | 3.1Comment: Testing | 2.3 - 4.8 mg/dL | [facility] | | | | performed at [facility] | | LABORATORY | | | | [address];[place], [place] | | | | | | [address] | | | | + + + + + + + + | Specimen | + + | Blood | + + + + + + + | Performing | Address | City/State/Zipcode | Phone Number | | Organization | | | | + + + + + | [facility] | [address] | [place] [address] | [phone] | + + + + + Comprehensive [...] | >60Comment: GFR <60: | >60 | [facility] | | | GFR | CHRONIC [...] | | | | | | MDRD [facility] traceable | | | | | | equation.Testing | | | | | | performed at [facility] | | | | | | [employer];[place], [place] | | | | | | [address] | | | | + + + + + + + + | Specimen | + + | Blood | + + + + + + + | Performing | Address | City/State/Zipcode | Phone Number | | Organization | | | | + + + + + | [facility] | [address] [facility] | [place] [address] | [phone] | + + + + + CBC [...] | | | Absolute | performed at [facility] | K/uL | LABORATORY | | | | [address] [facility];[place], [place] | | | | | | [address] | | | | + + + + + + + + | Specimen | + + | Blood | + + + + + + + | Performing | Address | City/State/Zipcode | Phone Number | | Organization | | | | + + + + + | [facility] | [address] | [place] [address] | [phone] | + + + + + PTT (04/05/2019 2:18 AM PST) + + + + + + | Component | Value | Ref Range | Performed | Pathologist | | | | | At | Signature | + + + + + + | PTT | 45 (H)Comment: Testing | 23 - 32 seconds | [facility] | | | | performed at [facility] | | LABORATORY | | | | [address];[place] | | | | | | [address] | | | | + + + + + + + + | Specimen | + + | Blood | + + + + + + + | Performing | Address | City/State/Zipcode | Phone Number | | Organization | | | | + + + + + | [facility] | [address] | [place] [address] | [phone] | + + + + + Vitamin [...] | | | | | [place] [address] | | | | + + + + + + + + | Specimen | + + | Blood | + + + + + + + | Performing | Address | City/State/Zipcode | Phone Number | | Organization | | | | + + + + + | [facility] | [address] | [place] [address] | [phone] | + + + + + Retic [...] | | | Reticulocyt | performed at [facility] | | LABORATORY | | | e Count | [address];[place] | | | | | | [address] | | | | + + + + + + + + | Specimen | + + | Blood | + + + + + + + | Performing | Address | City/State/Zipcode | Phone Number | | Organization | | | | + + + + + | [facility] | [address] | [place] [address] | [phone] | + + + + + Iron [...] | | | | | [place] [address] | | | | + + + + + + + + | Specimen | + + | Blood | + + + + + + + | Performing | Address | City/State/Zipcode | Phone Number | | Organization | | | | + + + + + | [facility] | [address] | [place] [address] | [phone] | + + + + + Folate (04/05/2019 2:18 AM PST) + + + + + + | Component | Value | Ref Range | Performed | Pathologist | | | | | At | Signature | + + + + + + | FOLATE | 16.6Comment: Testing | >5.4 ng/mL | [facility] | | | | performed at [facility], [address] | | LABORATORY | | | | [address], | | | | | | [place] [address] | | | | + + + + + + + + | Specimen | + + | Blood | + + + + + + + | Performing | Address | City/State/Zipcode | Phone Number | | Organization | | | | + + + + + | [facility] | [address] | [place] [address] | [phone] | + + + + + Ferritin (04/05/2019 2:18 AM PST) + + + + + + | Component | Value | Ref Range | Performed | Pathologist | | | | | At | Signature | + + + + + + | Ferritin | 193 (H)Comment: Testing | 6 - 170 ng/mL | [facility] | | | | performed at [facility], [address] | | LABORATORY | | | | [address], | | | | | | [place] [address] | | | | + + + + + + + + | Specimen | + + | Blood | + + + + + + + | Performing | Address | City/State/Zipcode | Phone Number | | Organization | | | | + + + + + | [facility] | [address] | [place] [address] | [phone] | + + + + + Magnesium (04/05/2019 2:18 AM PST) + + + + + + | Component | Value | Ref Range | Performed | Pathologist | | | | | At | Signature | + + + + + + | Magnesium | 1.7Comment: Testing | 1.7 - 2.4 mg/dL | [facility] | | | | performed at [facility] | | LABORATORY | | | | [address];[place] | | | | | | [address] | | | | + + + + + + + + | Specimen | + + | Blood | + + + + + + + | Performing | Address | City/State/Zipcode | Phone Number | | Organization | | | | + + + + + | [facility] | [address] | [place] [address] | [phone] | + + + + + CBC [...] LABORATORY | | | | performed at [facility] | | | | | | [address];[place] | | | | | | [address] | | | | + + + + + + + + | Specimen | + + | Blood | + + + + + + + | Performing | Address | City/State/Zipcode | Phone Number | | Organization | | | | + + + + + | [facility] | [address] | [place] [address] | [phone] | + + + + + PTT (04/04/2019 6:42 PM PST) + + + + + + | Component | Value | Ref Range | Performed | Pathologist | | | | | At | Signature | + + + + + + | PTT | 33 (H)Comment: Testing | 23 - 32 seconds | [facility] | | | | performed at [facility] | | LABORATORY | | | | [address];[place] | | | | | | [address] | | | | + + + + + + + + | Specimen | + + | Blood | + + + + + + + | Performing | Address | City/State/Zipcode | Phone Number | | Organization | | | | + + + + + | [facility] | [address] | [place] [address] | [phone] | + + + + + CBC [...] LABORATORY | | | | performed at [facility] | | | | | | [address];[place] | | | | | | [address] | | | | + + + + + + + + | Specimen | + + | Blood | + + + + + + + | Performing | Address | City/State/Zipcode | Phone Number | | Organization | | | | + + + + + | [facility] | [address] | [place] [address] | [phone] | + + + + + CBC [...] LABORATORY | | | | performed at [facility] | | | | | | [address];[place], [place] | | | | | | [address] | | | | + + + + + + + + | Specimen | + + | Blood | + + + + + + + | Performing | Address | City/State/Zipcode | Phone Number | | Organization | | | | + + + + + | [facility] | [address] | [place] [address] | [phone] | + + + + + PTT (04/04/2019 12:36 PM PST) + + + + + + | Component | Value | Ref Range | Performed | Pathologist | | | | | At | Signature | + + + + + + | PTT | 54 (H)Comment: Testing | 23 - 32 seconds | [facility] | | | | performed at [facility] | | LABORATORY | | | | [address];[place] | | | | | | [address] | | | | + + + + + + + + | Specimen | + + | Blood | + + + + + + + | Performing | Address | City/State/Zipcode | Phone Number | | Organization | | | | + + + + + | [facility] | [address] | [place] [address] | [phone] | + + + + + Magnesium (04/04/2019 11:52 AM PST) + + + + + + | Component | Value | Ref Range | Performed | Pathologist | | | | | At | Signature | + + + + + + | Magnesium | 1.9Comment: Testing | 1.7 - 2.4 mg/dL | [facility] | | | | performed at [facility] | | LABORATORY | | | | [facility];[place], [place] | | | | | | [address] | | | | + + + + + + + + | Specimen | + + | | + + + + + + + | Performing | Address | City/State/Zipcode | Phone Number | | Organization | | | | + + + + + | [facility] | [address] | [place] [address] | [phone] | + + + + + Comprehensive [...] | | | | | | MDRD [facility] traceable | | | | | | equation.Testing | | | | | | performed at [facility];[address] | | | | | | [employer];[place], [place] | | | | | | [address] | | | | + + + + + + + + | Specimen | + + | | + + + + + + + | Performing | Address | City/State/Zipcode | Phone Number | | Organization | | | | + + + + + | [facility] | [address] [facility] | [place] [address] | [phone] | + + + + + CBC [...] LABORATORY | | | | performed at [facility] | | | | | | [address];[place] | | | | | | [address] | | | | + + + + + + + + | Specimen | + + | Blood | + + + + + + + | Performing | Address | City/State/Zipcode | Phone Number | | Organization | | | | + + + + + | [facility] | [address] | [place] [address] | [phone] | + + + + + Red [...] | [facility] | | | COMMENT | [facility];[address] [facility] | | LABORATORY | | | | Blvd;[place] [address] | | | | + + + + + + + + | Specimen | + + | | + + + + + + + | Performing | Address | City/State/Zipcode | Phone Number | | Organization | | | | + + + + + | [facility] | [address] | [place] [address] | [phone] | + + + + + CBC [...] | 11.0Comment: NO NORMAL | fl | [facility] | | | | RANGE ESTABLISHEDTesting | | LABORATORY | | | | performed at [facility];[address] | | | | | | [address];[place] | | | | | | [address] | | | | + + + + + + + + | Specimen | + + | Blood | + + + + + + + | Performing | Address | City/State/Zipcode | Phone Number | | Organization | | | | + + + + + | [facility] | [address] | [place] [address] | [phone] | + + + + + Protime INR (04/04/2019 6:18 AM PST) + + + + + + | Component | Value | Ref Range | Performed | Pathologist | | | | | At | Signature | + + + + + + | INR | 1.7Comment: REFERENCE | | [facility] | | | | RANGE:0.9 - [...] | | | | | performed at [facility] | | | | | | [address];[place], [place] | | | | | | [address] | | | | + + + + + + + + | Specimen | + + | Blood | + + + + + + + | Performing | Address | City/State/Zipcode | Phone Number | | Organization | | | | + + + + + | [facility] | [address] | [place] [address] | [phone] | + + + + + Iron, Total (04/03/2019 10:45 PM PST) + + + + + + | Component | Value | Ref Range | Performed | Pathologist | | | | | At | Signature | + + + + + + | Iron | 47Comment: Testing | 30 - 180 ug/dL | [facility] | | | | performed at [facility], [address] | | LABORATORY | | | | [address], | | | | | | [place] [address] | | | | + + + + + + + + | Specimen | + + | Blood | + + + + + + + | Performing | Address | City/State/Zipcode | Phone Number | | Organization | | | | + + + + + | [facility] | [address] | [place] [address] | [phone] | + + + + + CBC [...] LABORATORY | | | | performed at [facility];[address] | | | | | | [address];[place] | | | | | | [address] | | | | + + + + + + + + | Specimen | + + | Blood | + + + + + + + | Performing | Address | City/State/Zipcode | Phone Number | | Organization | | | | + + + + + | [facility] | [address] | [place] [address] | [phone] | + + + + + Troponin I (04/03/2019 7:45 PM PST) + + + + + + | Component | Value | Ref Range | Performed | Pathologist | | | | | At | Signature | + + + + + + | Troponin I | 1.186 ()Comment: | 0.00 - 0.04 | [facility] | | | | 0.04 ng/mL or [...] | | | | | performed at [facility];[address] | | | | | | [address];[place] | | | | | | [address] | | | | + + + + + + + + | Specimen | + + | | + + + + + + + | Performing | Address | City/State/Zipcode | Phone Number | | Organization | | | | + + + + + | [facility] | [address] | [place] [address] | [phone] | + + + + + CBC [...] LABORATORY | | | | performed at [facility];[address] | | | | | | [address];[place] | | | | | | [address] | | | | + + + + + + + + | Specimen | + + | Blood | + + + + + + + | Performing | Address | City/State/Zipcode | Phone Number | | Organization | | | | + + + + + | [facility] | [address] | [place] [address] | [phone] | + + + + + ECG [...] | | | | | ONLY, -COMPUTER ([id number]), | | | | | | editorial manager Jocelynn Fry | | | | | [...] | | | | | COMMENT | [facility];[address] [place] [address] | | | | | | Blvd;[place] [address] | | | | + + + + + + + + | Specimen | + + | | + + + + + + + | Performing | Address | City/State/Zipcode | Phone Number | | Organization | | | | + + + + + | [facility] | [address] | [place] [address] | [phone] | + + + + + PRODUCT: [...] + + + | UNIT # | [id number] | | [facility] | | | | [...] + + + | UNIT # | [id number] | | [facility] | | | | [...] | | | Status | performed at [facility];[address] | | LABORATORY | | | | [address];[place], [place] | | | | | | [address] | | | | + + + + + + + + | Specimen | + + | | + + + + + + + | Performing | Address | City/State/Zipcode | Phone Number | | Organization | | | | + + + + + | [facility] | [address] | [place] [address] | [phone] | + + + + + CBC [...] | | | Absolute | performed at [facility];[address] | K/uL | LABORATORY | | | | [address];[place], [place] | | | | | | [address] | | | | + + + + + + + + | Specimen | + + | Blood | + + + + + + + | Performing | Address | City/State/Zipcode | Phone Number | | Organization | | | | + + + + + | [facility] | [address] | [place] [address] | [phone] | + + + + + Type [...] + + + | BB BAND | [id number] | | [facility] | | | | | | LABORATORY | | + + + + + + | UNIT # | [id number] | | [facility] | | | | [...] + + + | UNIT # | [id number] | | [facility] | | | | [...] + + + | UNIT # | [id number] | | [facility] | | | | [...] | | | RESULT | performed at [facility];[address] | | LABORATORY | | | | [address];[place] | | | | | | [address] | | | | + + + + + + | UNIT # | [id number] | | [facility] | | | | [...] [facility] | [address] | [place] [address] | [phone] | + + + + + POC [...] | | | POC | performed at [facility];[address] | | LABORATORY | | | | [address];[place], [place] | | | | | | [address] | | | | + + + + + + + + | Specimen | + + | | + + + + + + + | Performing | Address | City/State/Zipcode | Phone Number | | Organization | | | | + + + + + | [facility] | [address] | [place] [address] | [phone] | + + + + + CT [...] [facility] | | | | performed at [facility], [address] | | LABORATORY | | | | [address], | | | | | | [place] [address] | | | | + + + + + + + + | Specimen | + + | Blood | + + + + + + + | Performing | Address | City/State/Zipcode | Phone Number | | Organization | | | | + + + + + | [facility] | [address] | [place] [address] | [phone] | + + + + + Ferritin (04/03/2019 10:25 AM PST) + + + + + + | Component | Value | Ref Range | Performed | Pathologist | | | | | At | Signature | + + + + + + | Ferritin | 144Comment: Testing | 6 - 170 ng/mL | [facility] | | | | performed at [facility], [address] | | LABORATORY | | | | [address], | | | | | | [place] [address] | | | | + + + + + + + + | Specimen | + + | Blood | + + + + + + + | Performing | Address | City/State/Zipcode | Phone Number | | Organization | | | | + + + + + | [facility] | [address] | [place] [address] | [phone] | + + + + + Protime INR (04/03/2019 10:25 AM PST) + + + + + + | Component | Value | Ref Range | Performed | Pathologist | | | | | At | Signature | + + + + + + | INR | 2.9Comment: REFERENCE | | [facility] | | | | RANGE:0.9 - [...] | | | | | performed at [facility];[address] | | | | | | [address] [facility];[place] | | | | | | [address] | | | | + + + + + + + + | Specimen | + + | | + + + + + + + | Performing | Address | City/State/Zipcode | Phone Number | | Organization | | | | + + + + + | [facility] | [address] [facility] | [place] [address] | [phone] | + + + + + Basic [...] | | | | | performed at [facility];[address] | | | | | | [address];[place], [place] | | | | | | [address] | | | | + + + + + + + + | Specimen | + + | Blood | + + + + + + + | Performing | Address | City/State/Zipcode | Phone Number | | Organization | | | | + + + + + | [facility] | [address] | [place] [address] | [phone] | + + + + + CBC [...] | | | Absolute | performed at [facility];[address] | K/uL | LABORATORY | | | | [address];[place] | | | | | | [address] | | | | + + + + + + + + | Specimen | + + | Blood | + + + + + + + | Performing | Address | City/State/Zipcode | Phone Number | | Organization | | | | + + + + + | [facility] | [address] | [place] [address] | [phone] | + + + + + documented [...]
--- OUTSIDE RECORDS SUMMARY | ~2019-07-17 | XMS | Encounter Summary ---
Demographics + + + | Address | [address] | | | [place] [address] | + + + | Home Phone | | + + + | Preferred Language | Unknown | + + + | Marital Status | | + + + | Taoist Affiliation | Unknown | + + + | Race | Unknown | + + + | Ethnic Group | Unknown | + + + Author + + + | Author | [facility] | | | and [place] | + + + | Organization | [facility] | | | and [place] | + + + | Address | Unknown | + + + | Phone | Unavailable | + + + Support + + + + + | Name | Relationship | Address | Phone | + + + + + | Veronica Anderson | ECON | [place] | | | | | [address] | | + + + + + | Beatrice Paulson | ECON | [address] | | | | | [place] | | | | | [address] | | + + + + + Care Team Providers + +------+ + | Care Form Setter [address] Forms Name | Role | Phone | + [...] [facility] | | | | | Lumbar | Stephan, | [address] | | | | | spondylosis | Olayinka Duncan MD | [place], | | | | | Procedures | [address] | [place] | | | | | ID INJ | [facility] | [address] | | | | | DX/THER AGNT | [facility], [place] | Phone: | | | | | [place] | [address] | [phone] | | | | | FACET JOINT, | Phone: | Fax: | | | | | LUMBAR/SAC, | [phone] | [phone] | | | | | 1ST LEVEL | Fax: | | | | | | HC ID | [phone] | | | | | | TRIAMCINOLON | | | | | | | E ACET INJ | | | | | | | NOS | | | | | | | Bilateral | | | | | | | L5-S1 | | | | | | | Facet-Referr | | | | | | | [address] | | | | | | | Luis | | | +--------+--------+ + + + + Encounter Details +--------+ + + + + | Date | Type | Department | Care Team | Description | +--------+ + + + + | 05/01/ | Hospital | [facility] | Michelle, | 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 | Encounter | MED CTR XRAY [address] | [address] | lumbar region | | | | [place] | [facility] [address] | (Primary Dx); | | | | [place] [address] | [place] [address] | Osteoarthritis of | | | | [phone] | [phone] | lumbar spine, | | | | | | unspecified spinal | | | | | Project Management ProfessionalPaulino | osteoarthritis | | | | | arron pimentel | complication status | +--------+ + + + + Social [...] +---------+ + + | Blood Pressure | 219/122 | 05/02/2015 1:52 PM | | | | | PDT | | + +---------+ + + | Pulse | 58 | 05/02/2015 1:16 PM | | | | | PDT [...] | | | | | | [facility] | | | | | | [place] | | | | | | [address] | | | | | | | | +--------+---------+ + + + documented as of this encounter Procedures + +--------+ + + + | Procedure Name | Priori | Date/Time | Associated Diagnosis | Comments | | | ty | | | | + +--------+ + + + | FL FACET INJECTION | Routin | 05/02/2015 | Osteoarthritis of | Results for this | | LUMBAR SACRAL | e | 1:46 PM | lumbar spine, | procedure are in the | | | | PDT | unspecified spinal | results section. | | | | | osteoarthritis | | | | | | complication status | | + +--------+ + + + documented in this encounter Results FL Facet Injection Lumbar Sacral (05/02/2015 1:46 PM PDT) + + | Specimen | + + | | + + + + + | Narrative | Performed At | + + + | 05/02/2015 Bilateral Lumbar Facet Steroid Injections | [facility] | | Diagnosis: Lumbar Spondylosis ICD-10 Code M47.816 Kassie Eva | [facility] | | Marianela presents to the fluoroscopy suite for [facility] | | fluoroscopically-guided bilateral L5-S1 facet injections as part of | - IMAGING | | conservative management for chronic pain with lumbar spondylosis. | | | Based on the patient's history, physical examination and review of the | | | available imaging the patient has been diagnosed with pain coming | | | primarily from the lumbar facet joints. The patient's pain has been | | | moderate to severe, rated as a 6 usually on a 0-10 scale. The | | | pain is impacting activities of daily living including any prolonged | | | walking or standing. The patient has been dealing with this pain | | | for more than 3 months and has failed conservative treatment with | | | NSAIDs, PT and a home exercise program therefore therapeutic facet | | | injections were ordered today by Dr. Wilton Smith targeting the | | | bilateral L5-S1 facet joints. After informed consent was | | | obtained, the patient laid in the prone position on the fluoroscopy | | | table. The areas were identified under fluoroscopic guidance. The | | | areas were prepped and draped in sterile fashion. A 25-gauge, | | | 1.5-inch needle was inserted into each region and approximately 3 mL | | | of buffered 1% lidocaine was infused. Then, a 22-gauge spinal | | | needle was inserted into the superior portion of each facet under | | | fluoroscopic guidance. Confirmation into the joint spaces was obtained | | | with infusion of approximately 1 mL of Omnipaque contrast which | | | showed outline of the facet joints. Then, a combination of 1 mL of | | | 1% lidocaine and 1 mL of 40 mg/mL Kenalog was infused divided | | | between the 2 joints. The patient tolerated the procedure well | | | without complications. Pre- and post-procedure blood pressures were | | | stable. The patient was given verbal as well as written follow-up | | | instructions. The patient was reexamined after the procedure. | | | She reported good improvement of her symptoms after the procedure. | | | The patient's symptoms were improved even with bending and | | | twisting maneuvers. The patient was instructed to keep a detailed | | | pain diary of the response to treatment and will return the pain | | | diary to our office 2 weeks after the procedure. Prior to the | | | start of the procedure, the following were performed and/or | | | verified, including correct patient identity, correct site/side marked | | | and visible, agreement on the procedure to be done, correct patient | | | positioning and an accurate procedure consent form. Any safety | | | precautions based on clinical history and/or medication use have | | | been addressed. I personally performed the procedure above. | | | Estimated blood loss: Minimal Complications: None Findings: As | | | expected Anesthesia: Local 1% Lidocaine | | + + + + + + + + | Performing | Address | City/State/Zipcode | Phone Number | | Organization | | | | + + + + + | [facility] | [address] | [place] | [phone] | | 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 | + + | Osteoarthritis of lumbar spine, unspecified spinal osteoarthritis complication status | + + documented in this encounter Administered Medications + +--------+ +-------+------+------+ | Medication Order | MAR | Action | Dose | Rate | Site | | | Action | Date | | | | + +--------+ +-------+------+------+ | iohexol (OMNIPAQUE 300) 300 | Given | 05/02/19 | 2 mLs | | | | mg/mL injection 2 mL 2 mL, | | 16 1:49 | | | | | Other, ONCE PRN, Other, Starting | | PM PDT | | | | | 05/02/15 at 1316, For 1 dose, | | | | | | | Radiology | | | | | | + +--------+ +-------+------+------+ +---+---+ | | | +---+---+ + +-------+ +-------+---+---+ | lidocaine 1% injection 2 mL 2 | Given | 05/02/19 | 2 mLs | | | | mL, Other, ONCE, 05/02/15 at | | 16 1:50 | | | | | 1345, For 1 dose, Radiology | | PM PDT | | | | + +-------+ +-------+---+---+ +---+---+ | | | +---+---+ + +-------+ +-------+---+ + | lidocaine buffered 1% injection | Given | 05/02/19 | 6 mLs | | Other | | 6 mL 6 mL, Intradermal, ONCE, | | 16 1:45 | | | (Comment | | 05/02/15 at 1345, For 1 dose, | | PM PDT | | | ) | | Radiology | | | | | | + +-------+ +-------+---+ + +---+---+ | | | +---+---+ + +-------+ +-------+---+---+ | triamcinolone acetonide | Given | 05/02/19 | 40 mg | | | | (KENALOG-40) 40 mg/mL injection | | 16 1:50 | | | | | 40 mg 40 mg, Intra-articular, | | PM PDT | | | | | ONCE, 05/02/15 at 1345, For 1 | | | | | | | dose, Shake well. Not for IV | | | | | | | use., Radiology | | | | | | + +-------+ +-------+---+---+ +---+---+ | | | +---+---+ documented in this encounter"
--- OUTSIDE RECORDS SUMMARY | ~2019-07-17 | XMS | Encounter Summary ---
Demographics + + + | Address | [address] | | | [place] [address] | + + + | Home Phone | | + + + | Preferred Language | Unknown | + + + | Marital Status | | + + + | Hindu Affiliation | Unknown | + + + | Race | Unknown | + + + | Ethnic Group | Unknown | + + + Author + + + | Author | [facility] | | | and [place] | + + + | Organization | [facility] | | | and [place] | + + + | Address | Unknown | + + + | Phone | Unavailable | + + + Support + + + + + | Name | Relationship | Address | Phone | + + + + + | Veronica Anderson | ECON | [place] | | | | | [address] | | + + + + + | Beatrice Paulson | ECON | [address] | | | | | [place] | | | | | [address] | | + + + + + Care Team Providers + +------+ + | Care Parking Attendant Name | Role | Phone | + +------+ + | Parvez Vail MD | PCP | | + +------+ + Encounter Details +--------+ + + + + | Date | Type | Department | Care Team | Description | +--------+ + + + + | 09/10/ | Orders Only | [facility] | Lori Recinos DO | | | 2018 | | CONVERSION [address] | [address] | | | | | [place] | [place], [place] | | | | | [place], [place] | [address] | | | | | [address] | | | | | | [phone] | | | +--------+ + + + [...] [address] | | | | | | [facility] | | | | | | [place] | | | | | | [address] | | | | | | | [...] moderate bi-atrial enlargement. 4. | | | Lucz-oz-lmwfvmby mitral regurgitation is present. | | + [...] moderate bi-atrial enlargement. 4. | | | Opqm-yg-awpmqlua mitral regurgitation is present. FINDINGS | | | -------- ECG rhythm: Atrial fibrillation. Study: A 2-dimensional | | | transthoracic echocardiogram with m-mode, spectral and color flow | | | Doppler was perfomed at [facility]. Study: This was a technically adequate | [...] and calcified. Mitral Valve: | | | Vwpq-pt-jvxsikbj mitral regurgitation is present. Mitral Valve: No [...] | | | RV s': 0.10 m/s Vulcanizing Press Operator: Authenticated by: Lester Harrington | | | [place] Report Date/Time: 09-10-2018 19:15:39 | | + [...] There | | is moderate bi-atrial enlargement.4. Gnsr-uj-mumfefkt mitral regurgitation is present. | | FINDINGS--------ECG rhythm: Atrial fibrillation.Study: A 2-dimensional transthoracic | | echocardiogram with m-mode, spectral and color flow Doppler was perfomed at [facility].Study: | | This was a technically adequate [...] mildly thickened and | | calcified.Mitral Valve: Wqyy-kc-xlysdqzc mitral regurgitation is present.Mitral Valve: | | [...] cmLVPWd: 0.94 cmLVOT | | Area: 3.29 [id number] Diam: 2.05 cm%FS: 23.03 %EF(Teich): 45.82 %ESV(Teich): [...] mlLAESV Index (A-L): 48.04 ml/m2LAAs A2C: 31.64 [id number] A-L A2C: 140.25 | | mlLALs A2C: 6.06 cmLAAs A4C: 24.01 [id number] A-L A4C: 84.57 mlLALs A4C: 5.78 | | cmRAAs: 21.90 [id number] A-L: 62.77 mlRAESV MOD: 60.06 mlRALs: 6.48 cmTAPSE: | | 2.51 cmLVOT maxP.06 mmHgLVOT meanP.68 mmHgLVSI Dopp: 23.82 ml/m2LVSV Dopp: | | 55.28 mlLVOT Vmax: 0.87 m/sLVOT Vmean: 0.60 m/sLVOT VTI: 16.75 cmMV E Doroteo: | | 1.37 m/sMV DecT: 209.33 msRAP: 5 mmHgRVSP: 33.27 mmHgTR maxP.27 mmHgTR | | Vmax: 2.65 m/sRV s': 0.10 m/s Vulcanizing Press Operator: ADMAuthenticated by: Lester Harrington | | [place]Report Date/Time: 09-10-2018 19:15:39 IMPRESSION: 1. Overall left ventricular | | systolic function is normal with an EF between 55 - 60%.2. The right ventricle is normal | | in size and function.3. There is moderate bi-atrial enlargement.4. Ddbs-gn-eojvlfci | | mitral regurgitation is present. | [...] |RV s': 0.10 m/s | | | |Vulcanizing Press Operator: ADM | |Authenticated by: Lester Akins | |Report Date/Time: 09-10-2018 19:15:39 | | | |IMPRESSION: | |1. Overall left ventricular systolic function is normal with an EF between 55 - 60%. | |2. The right ventricle is normal in size and function. | |3. There is moderate bi-atrial enlargement. | |4. Pfzg-qz-xxwjsekl mitral regurgitation is present. | + + documented in this encounter Visit Diagnoses Not on filedocumented in this encounter"
--- OUTSIDE RECORDS SUMMARY | ~2019-07-17 | XMS | Encounter Summary ---
Demographics + + + | Address | [address] | | | [place] [address] | + + + | Home Phone | | + + + | Preferred Language | Unknown | + + + | Marital Status | | + + + | Adventism Affiliation | Unknown | + + + [...] [place] | | | | | [address] | | + + + + + | Beatrice Paulson | ECON | [address] | | | | | [place] | | | | | [address] | | + + + + + Care Team Providers + +------+ + | Care Tab Builder Name | Role | Phone | + +------+ + | Venkata Pettit MD | PCP | | + +------+ + Reason for Visit + + + | Reason | Comments | + + + | Follow-up | 4 week po | + + + Encounter Details +--------+---------+ + + + | Date | Type | Department | Care Team | Description | +--------+---------+ + + + | 02/13/ | Office | [facility] | Wilton Smith, | Status post lumbar | | 2014 | Visit | NEUROSURGERY [address] | DO [address] | spinal fusion | | | | [address] | [address] [place], [place] | (Primary Dx) | | | | [place], [place] | [address] | | | | | [address] | | | | | | [phone] | | | +--------+---------+ + + + [...] + + + | Blood Pressure | 137/68 | 02/13/2013 9:59 AM | | | | | PST | | + + + + + | Pulse | 70 | 02/13/2013 9:59 AM | | | | | PST | | + + + + + | Temperature | - | - | | + + + + + | Respiratory Rate | 18 | 02/13/2013 9:59 AM | | | | | PST [...] Height | 172.7 cm (5' 8") | 02/13/2013 9:59 AM | | | | | PST | | + + + + + | Body Mass Index | - | - | | + + + + + documented in this encounter Patient Instructions Patient Instructions Wilton Smith DO - 02/13/2013 10:38 AM PSTPlease continue home PT. Please start brace weaning and aquatic PT in 2 weeks. Please follow-up in 2 months with new x-rays. documented in this encounter Progress Notes Wilton Smith DO - 02/13/2013 10:39 AM PSTFormatting of this note might be different fro m the original. Wilton Smith, DO [address] [facility], [address] [place], [place] [id number] FAX: NEUROSURGERY SURGICAL FOLLOW-UP CHIEF COMPLAINT: Chief Complaint Patient presents with Follow-up 4 week po HISTORY OF PRESENT ILLNESS: The patient is a 72 y.o. female that had an XLIF L2-3 and L4-5 , TLIF L4-5, and posterolateral fusion L1-2 by me for back pain and leg weakness around 4 w eeks ago. She returns and overall is doing fairly well. Her back pain from before surgery is resolved. Her surgical pain is improving. The patient complains of continued leg weakness which is improving. The patient has been walking as much as possible. She is still taking pain medications at this point. The patient has had no issues with her surgical site. CURRENT MEDICATIONS: Current Outpatient Prescriptions Medication Sig Dispense Refill BABY ASPIRIN PO Take 81 mg by mouth. carvedilol (COREG) 12.5 mg tablet Take 12.5 mg by mouth 2 times daily (with breakfast & dinner). Cholecalciferol (VITAMIN D3 PO) Take 4,000 Units by mouth Daily. GABAPENTIN PO Take by mouth. 900mg qam and 900mg qpm Lactulose 20 GM/30ML SOLN Take 20 g by mouth every 6 hours as needed. 240 mL 1 Magnesium 250 MG TABS Take 250 mg by mouth Daily. NAPROXEN Take 220 mg by mouth 2 times daily. oxyCODONE (ROXICODONE) 5 mg tablet Take 1-2 tablets by mouth every 4 hours as needed. 60 tablet 0 oxyCODONE-acetaminophen (PERCOCET) 5-325 mg per tablet Take 1-2 tablets by mouth every 4 hours as needed for Pain. 60 tablet 0 ALLERGIES: Allergies Allergen Reactions Pregabalin SOCIAL HISTORY: The patient reports that she has never smoked. She has never used smokeless tobacco. She r eports that she drinks alcohol. She reports that she does not use illicit drugs. INTERIM PHYSICAL EXAMINATION: Blood pressure 137/68, pulse 70, resp. rate 18, height 1.727 m (5' 8"). There is no weight on file to calculate BMI. GENERAL: Kassie Cummins is in no acute [...] S/P L1-5 fusion: Encounter Diagnosis Name Primary? Status post lumbar spinal fusion Yes Past Medical History Diagnosis Date Sacroiliitis BACK PAIN, LUMBAR Spinal stenosis Trochanteric bursitis Degenerative disc disease Obesity Hypertension Hypercholesterolemia Hx of spinal fusion Myofascial pain syndrome Paresthesia Carpal tunnel syndrome PLAN: Overall, the patient is doing fairly well. Her back pain is improved and she is progressin g with home physical therapy. I increased the patient s activities slowly now allowing 15 pound lifting and also will b egin the process of brace weaning. I would like the patient to advance slowly with this pro cess and discussed this at length during today's visit. I would also like the patient to co ntinue with postoperative rehabilitation and to advance with therapy as tolerated. I am hoping to see improvement over the coming weeks to months and plan to continue to foll ow this patient. I spent 30 minutes in visit with Kassie Cummins today with the majority of time spent coun selling the patient on her recovery and coordinating her future care. The patient will foll ow-up with me in around 8 weeks for re-evaluation. ELECTRONICALLY SIGNED BY: Wilton Smith DO, 02/13/2013 10:43 I am prescribing the patient a bariatric walker for safety with her ambulation. 02/18/13 1125 documented in this encounter Plan of Treatment +--------+---------+ + + + | Date | Type | Specialty | Care Team | Description | +--------+---------+ + + + | 10/06/ | Office | Cardiology | Elvin Jamil | | | 2020 | Visit | | MD [address] | | | | | | [facility] | | | | | | [place] | | | | | | [address] | | | | | | | | +--------+---------+ + + + documented as of this encounter Results XR Lumbar Spine 2 or 3 Vw (04/15/2013 12:52 PM PST) + + | Specimen | + + | | + + + + + | Narrative | Performed At | + + + | [facility] | [place] | | Department [address], [place] | [facility] | | [ rep ct [address]] [ rep ct [facility] | | st zip] Signed | - IMAGING | | | | | Patient Name: HEMANT CUMMINSYCSaeed Alarcon Physician: | | | SYL. : 1940 Age: 72 Sex: F Unit #: [id number] | | | Exam Date: 04/15/13 Location: [facility] | | | Report #: [id number] Page: | | | %(RAD)RES..mtdd.print.filter("pg") of %(RAD) | | | RES..mtdd.print.filter("tpg") | | | | | | Accession Number: [id number] | | | LUMBAR SPINE LIMITED CLINICAL [...] Transcribed Date/Time: 04/15/2013 13:01 | | | Legal Support Assistant: <<Signature on File>> | | | | | | Mando Yang MD04/15/13 5198 <Electronically signed by Mando Duncan | | | [place]> Mando Yang MD 04/15/13 4852 | | | Legal Support Assistant: Renrendai Xrycvuwhebrhe80/05/14 1301 | | | Wilton Smith, DO | | + + + + + + + + | Performing | Address | City/[facility] | Phone Number | | Organization | | | | + + + + + | [facility] | [address] [facility] | [place], [place] | [phone] | | [facility] | | [address] | | | - IMAGING | | | | + + + + + XR Lumbar Spine 2 or 3 Vw (02/13/2013 10:25 AM PST) + + | Specimen | + + | | + + + + + | Narrative | Performed At | + + + | [facility] | [place] | | Department [address] , [place] | [facility] | | [ rep ct [address]] [ rep ct [facility] | | st zip] Signed | - IMAGING | | | | | Patient Name: KASSIE CUMMINS Physician: | | | SYL. : 1940 Age: 72 Sex: F Unit #: [id number] | | | Exam Date: 02/13/13 Location: [facility] | | | Report #: [id number] Page: | | | %(RAD)RES..mtdd.print.filter("pg") of %(RAD) | | | RES..mtdd.print.filter("tpg") | | | | | | Accession Number: [id number] | | | LUMBAR SPINE, 02/13/2013 CLINICAL HISTORY: FOLLOWUP | | | FUSION. COMPARISON: 01/14/2013. | | | FINDINGS: Posterior pedicle screw and ashwin fixation is present from | | | L1 to L5. Radiopaque markers indicate interbody spacers at L2-3, | | | L3-4 and L4-5. An interspinous plate is also again shown at L3-4. | | | Fixation components are in stable configuration. There is | | | approximately 8 mm of anterolisthesis of L4 on L5. Alignment is | | | otherwise within normal limits. No adjacent soft tissue | | | abnormalities are seen. IMPRESSION: 1. | | | STABLE POSTERIOR PEDICLE SCREW AND ASHWIN FIXATION FROM L1 TO L5. | | | INTERBODY SPACERS ARE PRESENT FROM L2 TO L5. | | | Dictated Date/Time: 02/13/2013 10:25 Transcribed Date/Time: | | | 02/13/2013 10:47 Legal Support Assistant: | | | <<Signature on File>> | | | | | | Michael Lopez MD02/13/13 1442 <Electronically signed by | | | Michael Lopez MD> Michael Lopez MD 02/13/13 | | | 1025 Legal Support Assistant: Renrendai Zquolzplsauzm85/03/14 1047 | | | Wilton Smith DO | | + + + + + + + + | Performing | Address | City/State/Zipcode | Phone Number | | Organization | | | | + + + + + | [facility] | [address] | [place] | [phone] | | [facility] | | [address] | | | - IMAGING | | | | + + + + + documented in this encounter Visit Diagnoses + + | Diagnosis | + + | Status post lumbar spinal fusion - Primary Arthrodesis status | + + documented in this encounter
--- OUTSIDE RECORDS SUMMARY | ~2019-07-17 | XMS | Encounter Summary ---
Demographics + + + | Address | [address] | | | [place] [address] | + + + | Home Phone | | + + + | Preferred Language | Unknown | + + + | Marital Status | | + + + | Caodaism Affiliation | Unknown | + + + | Race | Unknown | + + + | Ethnic Group | Unknown | + + + Author + + + | Author | [facility] | | | and [place] | + + + | Organization | [facility] | | | and [place] | + + + | Address | Unknown | + + + | Phone | Unavailable | + + + Support + + + + + | Name | Relationship | Address | Phone | + + + + + | Veronica Andreson | ECON | [place] | | | | | [address] | | + + + + + | Beatrice Paulson | ECON | [address] | | | | | [place] | | | | | [address] | | + + + + + Care Team Providers + +------+ + | Care Rim Fire Charger Operator Name | Role | Phone | + +------+ + PCP | Unavailable | + +------+ + Encounter Details +--------+ + + + + | Date | Type | Department | Care Team | Description | +--------+ + + + + | 12/22/ | Hospital | [facility] | Justen Ribera | | | 2009 | Encounter | MED CTR XRAY [address] | F, [address] | | | | | [address] [place] | [address] [place], [place] | | | | | [place] [address] | [address] | | | | | [phone] | [phone] | | | | | | | [...] [place] | | | | | | [address] | | | | | | | | +--------+---------+ + + + documented as of this encounter Visit Diagnoses Not on filedocumented in this encounter"
--- OUTSIDE RECORDS SUMMARY | ~2019-07-17 | XMS | Encounter Summary ---
Demographics + + + | Address | [address] | | | [place] [address] | + + + | Home Phone | | + + + | Preferred Language | Unknown | + + + | Marital Status | | + + + | Congregation Affiliation | Unknown | + + + | Race | Unknown | + + + | Ethnic Group | Unknown | + + + Author + + + | Author | [facility] | | | and [place] | + + + | Organization | [facility] | | | and [place] | + + + | Address | Unknown | + + + | Phone | Unavailable | + + + Support + + + + + | Name | Relationship | Address | Phone | + + + + + | Veronica Anderson | ECON | [place] | | | | | [address] | | + + + + + | Beatrice Paulson | ECON | [address] | | | | | [place] | | | | | [address] | | + + + + + Care Team Providers + +------+ + | Care Speech And Hearing Director Name | Role | Phone | + [...] | Wilton Alarcon DO | [address] | | | | | spasticity | [address] | [place], | | | | | Lumbago | [address] | [place] | | | | | Lumbar | [place] | [address] | | | | | spondylosis | [address] | Phone: | | | | | Lumbar | Phone: | [phone] | | | | | canal | [phone] | Fax: | | | | | stenosis | Fax: | [phone] | | | | | Weakness of | [phone] | | | | | | both [...] + + + + | 12/01/ | Hospital | [facility] | | Muscle spasticity; | | 2012 | Encounter | MED CTR XRAY [address] | | Lumbago; Lumbar | | | | [address] [place] | | spondylosis; Lumbar | | | | [place] [address] | | canal stenosis; | | | | [phone] | | Weakness of both | | | | | | legs; | | | | | | 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 | | | | | + + + +---------+ + + | GABAPENTIN PO | Take by mouth. | | 0 | | | | | 900mg qam and 900mg | | | | 5 | | | qpm | | | | | + + + +---------+ + + | NAPROXEN | Take 220 mg by mouth | | 0 | | | | | 2 times daily. | | | | 4 | + + + +---------+ + + documented as of this encounter Plan of Treatment +--------+---------+ + + + | Date | Type | Specialty | Care Team | Description | +--------+---------+ + + + | 10/06/ | Office | Cardiology | Elvin Jamil | | | 2020 | Visit | | [address] | | | | | | [facility] | | | | | | [place] | | | | | | [address] | | | | | | | | +--------+---------+ + + + documented as of this encounter Procedures + +--------+ + + + | Procedure Name | Priori | Date/Time | Associated Diagnosis | Comments | | | ty | | | | + +--------+ + + + | MRI THORACIC SPINE | Routin | 12/01/2012 | Muscle spasticity | Results for this | | WO CONTRAST | e | 4:52 PM | Lumbago Lumbar | procedure are in the | | | | PDT | spondylosis Lumbar | results section. 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 | + +--------+ + + + documented in this encounter Results MRI Thoracic Spine wo Contrast (12/01/2012 4:52 PM PDT) + + | Specimen | + + | | + + + + + | Narrative | Performed At | + + + | [facility] | [place] | | Department [address] [place] [address] | [facility] | | [ rep ct [id number]] [ rep [facility] | | [facility]] Signed | - IMAGING | | | | | Patient Name: KASSIE CUMMINS Physician: | | | CONSUELO : 1940 Age: 72 Sex: F Unit #: [id number] | | | Exam Date: 12/01/12 [place] [facility] [place] | | | Report #: [id number] Page: | | | %(RAD)RES..mtdd.print.filter("pg") of %(RAD) | | | RES..mtdd.print.filter("tpg") | | | | | | Accession Number: [id number] | | | MRI THORACIC SPINE CLINICAL [...] Transcribed | | | Date/Time: 12/01/2012 19:29 Lead Machinist: | | | <<Signature on File>> | | | | | | Michael Lopez MD12/02/12 0727 <Electronically signed by | | | Michael Lopez MD> Michael Lopez MD 12/01/12 | | | 1652 Lead Machinist: KnowRe [id number]/21/13 1929 | | | Wilton Smith DO | | + + + + + + + + | Performing | Address | City/State/Zipcode | Phone Number | | Organization | | | | + + + + + | [facility] | [address] | [place] | [phone] | | [facility] | | [address] | | | - IMAGING | | | | + + + + + MRI Cervical Spine w wo Contrast (12/01/2012 3:45 PM PDT) + + | Specimen | + + | | + + + + + | Narrative | Performed At | + + + | [facility] | [place] | | Department [address] [facility] | [facility] | | [ rep [address]] [ rep [facility] | | st zip] Signed | - IMAGING | | | | | Patient Name: KASSIE CUMMINS Physician: | | | SITZ.20 : 1940 Age: 72 Sex: F Unit #: [id number] | | | Exam Date: 12/01/12 Location[place] [facility] [place] | | | Report #: [id number] Page: | | | %(RAD)RES..mtdd.print.filter("pg") of %(RAD) | | | RES..mtdd.print.filter("tpg") | | | | | | Accession Number: [id number] | | | MRI CERVICAL SPINE WITH AND WITHOUT CONTRAST CLINICAL | | | HISTORY: ANTERIOR CERVICAL DISKECTOMY AND FUSION AT C5-6, 2009. | | | NEW NECK PAIN RADIATING TO LOW BACK AND HIPS. | | | TECHNIQUE: Multiplanar, multisequence imaging of the cervical spine | | | was performed before and after the administration of 10 mL of | | | gadolinium. COMPARISON: Preoperative exam of September | | | 2009. FINDINGS: Posterior fossa contents included | | | on this exam and the cervical cord show normal signal and | | | appearance. No areas of abnormal cord enhancement are present. | | | Anterior compression plate and screws are present at C5-6, | | | with an interbody bone graft. This produces mild metallic artifact | | | anteriorly. The alignment of the cervical spine is normally | | | maintained. Vertebral body heights are normal. No areas of | | | abnormal marrow signal or enhancement are present. No adjacent | | | abnormalities are seen. Level by level analysis of the axial images | | | follows. C2-3: There is a small central disk | | | protrusion, with high signal indicating an accompanying annular | | | tear. This extends posteriorly only 3 mm and it does not produce | | | central canal or foraminal encroachment. C3-4: There | | | is a mild (3 mm) broad-based disk bulge, asymmetric to the left. | | | This produces a mild central canal stenosis (anterior to posterior | | | measurements of the cervical canal of 9 mm) with no foraminal | | | encroachment. Appearances are similar to the preoperative exam. | | | C4-5: There is mild broad-based disk bulge of mild | | | severity (3-4 mm). The central canal is somewhat more narrow at | | | this level, so this results in an anterior to posterior dimension of 9 | | | mm and mild stenosis. Uncinate hypertrophy contributes to mild | | | bilateral foraminal encroachment. Appearances are similar to the | | | patient's prior exam. C5-6: This is the fused level. | | | No residual disk protrusion is present. The interspace appears | | | firmly ankylosed. No significant central canal or foraminal | | | encroachment. C6-7: There is a broad-based disk bulge | | | asymmetric to the left. This produces moderately severe | | | encroachment on the left lateral recess and moderate left foraminal | | | stenosis. This has increased in severity when compared to the | | | prior exam. Overall, there is moderate central canal stenosis. | | | C7-T1: Mild uncinate hypertrophy without other abnormality. | | | IMPRESSION: 1. PRIOR C5-6 ANTERIOR CERVICAL | | | DISKECTOMY AND FUSION WITH NO RESIDUAL OR RECURRENT NEURAL | | | ENCROACHMENT AT THAT LEVEL. 2. INCREASING LEFT-SIDED | | | DISK BULGE AT C6-7. THIS COMBINES WITH UNCINATE HYPERTROPHY TO | | | ENCROACH UPON THE LEFT LATERAL ASPECT OF THE CANAL AND THE LEFT | | | NEURAL FORAMEN. 3. MILDER DEGENERATIVE, SPONDYLITIC | | | CHANGES AT THE OTHER LEVELS, CATALOGED ABOVE. | | | Dictated Date/Time: 12/01/2012 15:45 Transcribed Date/Time: | | | 12/01/2012 18:00 Lead Machinist: | | | <<Signature on File>> | | | | | | Michael Lopez MD12/02/12 0727 <Electronically signed by | | | Michael Lopez MD> Michael Lopez MD 12/01/12 | | | 1545 Lead Machinist: KnowRe Hryjcchalpegl58/21/13 1800 | | | DO Venkata French MD | | + + + + + + + + | Performing | Address | City/State/Zipcode | Phone Number | | Organization | | | | + + + + + | [facility] | [address] | [place] | [phone] | | [facility] | | [address] | | | - IMAGING | | | | + + + + + documented in this encounter Visit Diagnoses + + | Diagnosis | + + | Muscle spasticity Spasm of muscle | + + | [...]
--- OUTSIDE RECORDS SUMMARY | ~2019-07-17 | XMS | Encounter Summary ---
Demographics + + + | Address | [address] | | | [place] [address] | + + + | Home Phone | | + + + | Preferred Language | Unknown | + + + | Marital Status | | + + + | Jainism Affiliation | Unknown | + + + | Race | Unknown | + + + | Ethnic Group | Unknown | + + + Author + + + | Author | [facility] | | | and [place] | + + + | Organization | [facility] | | | and [place] | + + + | Address | Unknown | + + + | Phone | Unavailable | + + + Support + + + + + | Name | Relationship | Address | Phone | + + + + + | Veronica Anderson | ECON | [place] | | | | | [address] | | + + + + + | Beatrice Paulson | ECON | [address] | | | | | [place] | | | | | [address] | | + + + + + Care Team Providers + +------+ + | Care Lead Trainer Name | Role | Phone | + +------+ + | Venkata Pettit MD | PCP | | + +------+ + Encounter Details +--------+ + + + + | Date | Type | Department | Care Team | Description | +--------+ + + + + | 07/17/ | Hospital | [facility] | Felipe Hernandez, | S/P lumbar fusion | | 2013 | Encounter | MED CTR XRAY [address] | PA-C [address] | | | | | [place] | [address] [place], [place] | | | | | [place] [address] | [address] | | | | | [phone] | | | +--------+ + + + [...] | | | | | | Lizzie Radha, [facility] | | | | | | [place] | | | | | | [address] | | | | | | | | +--------+---------+ + + + documented as of this encounter Procedures + +--------+ + + + | Procedure Name | Priori | Date/Time | Associated Diagnosis | Comments | | | ty | | | | + +--------+ + + + | XR LUMBAR SPINE 2 OR | Routin | 07/17/2013 | S/P lumbar fusion | Results for this | | 3 VW | e | 9:57 AM | | procedure are in the [...] + | MISCELLANEOUS LAB | | | [phone] | + +---------+ + + | MISCELANIOUS LAB | | | [phone] | + +---------+ + + documented in this encounter Visit Diagnoses + + | Diagnosis | + + | S/P lumbar fusion Arthrodesis status | + + documented in this encounter"
--- OUTSIDE RECORDS SUMMARY | ~2019-07-17 | XMS | Encounter Summary ---
Demographics + + + | Address | [address] | | | [place] [address] | + + + | Home Phone | | + + + | Preferred Language | Unknown | + + + | Marital Status | | + + + | Anglican Affiliation | Unknown | + + + | Race | Unknown | + + + | Ethnic Group | Unknown | + + + Author + + + | Author | [facility] | | | and [place] | + + + | Organization | [facility] | | | and [place] | + + + | Address | Unknown | + + + | Phone | Unavailable | + + + Support + + + + + | Name | Relationship | Address | Phone | + + + + + | Veronica Anderson | ECON | [place] | | | | | [address] | | + + + + + | Beatrice Paulson | ECON | [address] | | | | | [place] | | | | | [address] | | + + + + + Care Team Providers + +------+ + | Care Accounting Supervisor Name | Role | Phone | [...] W | | | | | | [place] | | | | | | [place] [address] | | | | | | [phone] | | | +--------+ + + + [...] [place] | | | | | | [id number] | | | | | | | | +--------+---------+ + + + documented as of this encounter Visit Diagnoses Not on filedocumented in this encounter"
--- OUTSIDE RECORDS SUMMARY | ~2019-07-17 | XMS | Encounter Summary ---
Demographics + + + | Address | [address] | | | [place] [address] | + + + | Home Phone | | + + + | Preferred Language | Unknown | + + + | Marital Status | Single | + + + | Holiness Affiliation | Unknown | + + + | Race | White | + + + | Ethnic Group | Not or | + + + Author + + + | Author | [facility] | + + + | Organization | [facility] | + + + | Address | Unknown | + + + | Phone | Unavailable | + + + Support + + +---------+ + | Name | Relationship | Address | Phone | + + +---------+ + | Beatrice Paulson | ECON | Unknown | | + + +---------+ + Care Team Providers + +------+ + | Care Structural Steel Shop Supervisor Name | Role | Phone | + +------+ + | Venkata Pettit MD | PCP | | + +------+ + Encounter Details +--------+------+ + + + | Date | Type | Department | Care Team | Description | +--------+------+ + + + | 10/08/ | Lab | Laboratory at [facility] | | Myalgia | | 2012 | | [address] | | | | | | [place], [place] | | | | | | [address] | | | | | | [phone] | | | +--------+------+ + + + Social History + +-------+ [...] | + +--------+ + + + | IMMUNOFIXATION, | Routin | 10/08/2012 | Myalgia | Results for this | | SERUM | e | 11:10 AM | | procedure are in the | | | | PDT | | results section. | + +--------+ + + + | ANTI NUCLEAR AB | Routin | 10/08/2012 | Myalgia | Results for this | | SCREEN, SERUM | e | 11:10 AM | | procedure are in the | | | | PDT | | results section. | + +--------+ + + + | ANTI NEUTROPHIL | Routin | 10/08/2012 | Myalgia | Results for this | | CYTOPLASMIC AB SCN, | e | 11:10 AM | | procedure are in the | | SERUM | | PDT | | results section. | + +--------+ + + + | C-REACTIVE PROTEIN | Routin | 10/08/2012 | Myalgia | Results for this | | | e | 11:10 AM | | procedure are in the | | | | PDT | | results section. | + +--------+ + + + documented in this encounter Results IMMUNOFIXATION, SERUM (NEUROLOGY ONLY) (10/08/2012 11:10 AM [...] | | | | immunofixation | | SURRY | | | | electrophoresis. | | | | + + + + + + + + | Specimen | + + | Blood - Blood | + + + + + + + | Performing | Address | City/State/Zipcode | Phone Number | | Organization | | | | + + + + + | [facility] | [address] | [place] [address] | | | [place] | | | [...] + | [facility] | [address] | [place] [address] | | | [place] | | | [...] by | | | | | | [address] | | | | | | Dipak Rojas, [facility] | | | | | | [address] | | | | | | [phone]. | | | | | | [place] green, | | | | | | Reynaldo [place]. Director | | | | + + + + + + + + | Specimen | + + | Blood - Blood | + + + + + + + | Performing | Address | City/State/Zipcode | Phone Number | | Organization | | | | + + + + + | [facility] | [address] | [place], [place] | | | [facility] | | [address] | | + + + + + [...] - | | | | | | [place] | | + +---------+ + + + + + | Specimen | + + | Blood - Blood | + + + + + + + | Performing | Address | City/State/Zipcode | Phone Number | | Organization | | | | + + + + + | [facility] | [address] | [place] [address] | | | [place] | | | | + + + + + documented in this encounter Visit Diagnoses + + | Diagnosis | + + | Myalgia Mylagia and myositis, unspecified | + + documented in this encounter"
--- OUTSIDE RECORDS SUMMARY | ~2019-07-17 | XMS | Encounter Summary ---
Demographics + + + | Address | [address] | | | [place] [address] | + + + | Home Phone | | + + + | Preferred Language | Unknown | + + + | Marital Status | | + + + | Yazidi Affiliation | Unknown | + + + | Race | Unknown | + + + | Ethnic Group | Unknown | + + + Author + + + | Author | [facility] | | | and [place] | + + + | Organization | [facility] | | | and [place] | + + + | Address | Unknown | + + + | Phone | Unavailable | + + + Support + + + + + | Name | Relationship | Address | Phone | + + + + + | Veronica Anderson | ECON | [place] | | | | | [address] | | + + + + + | Beatrice Paulson | ECON | [address] | | | | | [place] | | | | | [address] | | + + + + + Care Team Providers + +------+ + | Care Cloth Burler Name | Role | Phone | + [...] Description | +--------+---------+ + + + | 06/30/ | Office | [facility] | Tyrel Orellana | Paroxysmal atrial | | 2020 | Visit | [facility] [place] | [address] | fibrillation (HCC) | | | | [address] | [facility] | (Primary Dx); [facility] | | | | [facility] [place] | [place] | apnea, unspecified | | | | [address] | [address] | type | | | | [phone] | | | +--------+---------+ + + + [...] encounter Progress Notes Tyrel Orellana MD - 07/01/2019 1:00 PM PDTFormatting of this note might be dif ferent from the original. Subjective: Referring MD: No ref. provider found Chief Complaint Patient presents with Follow-up HPI: This is a 78 y.o. female who presents today for follow-up of atrial fibrillation. Ms. Bear reports she is been doing well over the past 2 months. She has completed physical therapy and has been able to increase her mobility. She is hoping to [facility] near her home. She has not yet completed her sleep evaluation. She de nies any current chest pain, shortness of breath, dizziness, lightheadedness, palpitations, or recent syncope. She continues on anticoagulation with warfarin. Past Medical History: Diagnosis Date Arthralgia Atrial fibrillation (HCC) Dx 08/29 - AC - amio - CVN 12/30 and 03/02 - s/p cryo PVI/CTI RFA 04/02 - off amio 06/30 BACK PAIN, LUMBAR Carpal tunnel syndrome Chronic [...] ABLATION AF; Surgeon: Tyrel Orellana MD; [place] [facility] [place] Left 04/04/2019 Procedure: ENDARTERECTOMY FEMORAL Will need arteriogram in IR initially under moderate se dation and if not amenable to stenting then will need left groin cut down.; Surgeon: Elizabeth Mullen DO; [place] [facility] [place] CARDIOVERSION N/A 12/22/2018 Procedure: CV EP CARDIOVERSION; Surgeon: Lori Recinos DO; [place] [facility] [place] CARDIOVERSION N/A 02/20/2019 Procedure: CV EP CARDIOVERSION; Surgeon: Tyrel Orellana MD; [place] [facility] [place] CARDIOVERSION N/A 04/07/2019 Procedure: CV EP CARDIOVERSION; Surgeon: Tyrel Orellana MD; [place] [facility] [place] Cataract Surgery [...] 08/25/14 Performed by Rufina Bach NP for Dr. Shah, [place] TOTAL KNEE ARTHROPLASTY Left 06/28/[address] Will at [facility] TOTAL KNEE ARTHROPLASTY TRANSTHORACIC ECHOCARDIOGRAM 08/2018 [...] Current Outpatient Medications Medication Sig Dispense Refill atenolol (TENORMIN) 50 [...] HOW IT MADE HER FEEL. Objective: Vitals: 05/20/20 1255 BP: 134/77 Pulse: 71 Weight: 123.5 kg (272 lb 4.8 oz) Height: 1.727 m (5' 8") Body mass index is 41.4 kg/m. Exam: General: Patient is alert, pleasant, [...] of studies: ECG: Normal sinus rhythm at 71 bpm, first-degree AV block, no significant change from April 2019 Impression/Plan: Kassie was seen today for [...] cardiovers ion performed in December 2018 with restorationism of sinus rhythm. She did note an improveme nt in her symptoms with restorationism of sinus rhythm but unfortunately symptoms returned abou t 2 to 3 days after the cardioversion. Persistent atrial fibrillation has been noted since .She elected to undergo cardioversion after further amiodarone loading and sinus rhythm was restored recently. Unfortunately atrial fibrillation recurred and she continued with s ymptoms. She elected to proceed with pulmonary vein isolation which was performed via cryoa blation in March 2019. Right-sided flutter ablation was done at the time of the procedur e. She was then admitted subsequently for a left groin hematoma which required evacuation a nd drainage. She continues in sinus rhythm on examination today. Now that she is 3 months from her ablation and continues in sinus rhythm she will stop amiodarone. She will continue on atenolol 50 mg daily in addition to anticoagulation with warfarin. Her echocardiogram pe rformed in August 2018 demonstrated normal left ventricular function but moderate biatrial enl argement was noted. 2) Sleep apnea - Shehas multiple risk factors for obstructive sleep apnea. Daisy toledo obtain a sleep evaluation close to her home. She is aware of the associatio n of obstructive sleep apnea with atrial dysrhythmias. I recommended she start CPAP if ind icated. This encounter was dictated with voice recognition software and may contain inadvertent rec ognition errors. documented in this encounter Plan of Treatment +--------+---------+ + + + | Date | Type | Specialty | Care Team | Description | +--------+---------+ + + + | 10/06/ | Office | Cardiology | Tyrel Orellana | | 2019 | Visit | | [address] | | | | | | [facility] | | | | | | [place], [place] | | | | | | [phone] | | | | | | | [...] in this encounter Results ECG 12 lead (07/01/2019 12:52 PM PDT) + + + + + [...] | Please refer to | | CARLOS MUSE | | | ION TEXT | Providers office visit | | | | | | note for Providers | | | | | | Interpretation.Confirmed | | | | | | by TYREL ORELLANA MD | | | | | | ([id number] on 07/01/2019 | | | | | [...]
--- OUTSIDE RECORDS SUMMARY | ~2019-07-17 | XMS | Encounter Summary ---
Demographics + + + | Address | [address] | | | [place] [address] | + + + | Home Phone | | + + + | Preferred Language | Unknown | + + + | Marital Status | | + + + | Jewish Affiliation | Unknown | + + + | Race | Unknown | + + + | Ethnic Group | Unknown | + + + Author + + + | Author | [facility] | | | and [place] | + + + | Organization | [facility] | | | and [place] | + + + | Address | Unknown | + + + | Phone | Unavailable | + + + Support + + + + + | Name | Relationship | Address | Phone | + + + + + | Veronica Anderson | ECON | [place] | | | | | [address] | | + + + + + | Beatrice Paulson | ECON | [address] | | | | | [place] | | | | | [address] | | + + + + + Care Team Providers + +------+ + | Care Carpet Tile Layer Name | Role | Phone | + [...] CLIN[facility] [address] | | | | | ([facility]) | [address] | [address] | | | | | | [place] | WAY | | | | | | [address] | [place] | | | | | | Phone: | [address] | | | | | | [phone] | Phone: | | | | | | Fax: | [phone] | | | | | | [phone] | Fax: | | | | | | | [phone] | +--------+ + + + + + Reason for Visit + + + | Reason | Comments | + + + | Follow-up | 2 month / holter / echo | + + + Encounter Details +--------+---------+ + + + | Date | Type | Department | Care Team | Description | +--------+---------+ + + + | 11/06/ | Office | [facility] | Lori Recinos DO | Persistent atrial | | 2019 | Visit | CARDIOLOGY CHRISTOPHER | [address] | fibrillation (HCC) | | | | [address] | [place], [place] | (Primary Dx); | | | | [address] [place] [address] | [id number] | Persistent atrial | | | | [place] | | fibrillation; | | | | [address] | | Hypercholesterolemia | | | | [phone] | | ; Hypertension, | | | [...] Recinos DO - 11/06/2018 12:40 PM PDT [facility] Cardiology Follow Up Note Reason [...] any recent chest pains. She tried to bulk picker the Eliquis, but was unable to afford [...] 3. There is moderate bi-atrial enlargement. 4. Lakw-oo-zswsbwev mitral regurgitation is present. Last stress test: [...] found to be in atrial fibrillation. Her [id number] is 4. We discussed the need for [...] po daily, she is to establish with [facility] coumadin clinic next week. Once she is [...] [address] | | | | | | [facility] | | | | | | [place] | | | | | | [id number] | | | | | | | [...] atrial | Ordered: 11/06/2018 | | to [facility] | Referral | e | fibrillation (HCC) [...]
--- OUTSIDE RECORDS SUMMARY | ~2019-07-17 | XMS | Encounter Summary ---
Demographics + + + | Address | [address] | | | [place] [address] | + + + | Home Phone | | + + + | Preferred Language | Unknown | + + + | Marital Status | | + + + | Anabaptism Affiliation | Unknown | + + + | Race | Unknown | + + + | Ethnic Group | Unknown | + + + Author + + + | Author | [facility] | | | and [place] | + + + | Organization | [facility] | | | and [place] | + + + | Address | Unknown | + + + | Phone | Unavailable | + + + Support + + + + + | Name | Relationship | Address | Phone | + + + + + | Veronica Anderson | ECON | [place] | | | | | [address] | | + + + + + | Beatrice Paulson | ECON | [address] | | | | | [place] | | | | | [address] | | + + + + + Care Team Providers + +------+ + | Care Rental Manager Name | Role | Phone | [...] | | | | | | sm ([facility]) | | | | | [...] + + + | 03/31/ Anesthesia | [facility] | Carlos Salinas, | | | 2019 | Event | [facility] | STOCK SHEETS CLEANER INSPECTOR [address] | | | | | LAB [address] | [place] [address] | | | | | [place], [place] | [phone] | | | | | [address] | | | | | | [phone] | | | +--------+ + + + [...] +----+---+ + + | | 0 | [place] | | | | 7 | 43-degrees [...] 04/01/19 1127 by | | eral | hktn-uqw-wgeahl catheter system; | Gaby Junior RN | [...] via | Carlos Salinas CRNA | [place] CRNA | | | procedure documentation); Mask [...] [place] | | | | | | [address] | | | | | | | [...]
--- OUTSIDE RECORDS SUMMARY | ~2019-07-17 | XMS | Encounter Summary ---
Demographics + + + | Address | [address] | | | [place] [address] | + + + | Home Phone [...] [place] | | | | | [address] | | + + + + + | Beatrice Paulson | ECON | [address] | | | | | [place] | | | | | [address] | | + + + + + Care Team Providers + +------+ + | Care Medical Physiologist Name | Role | Phone | + [...] | | | | fibrillation | | [place], [place] | | | | | (HCC) | | [address] Phone: | | | | | Procedures | | [phone] | | | | | DE CATH PLMT | | Fax: | | | | | L HRT & | | [phone] | | | | | ARTS W/NJX & | | | | | | | ANGIO IMG | | | | | | | S&I | | | +--------+--------+ + + + + Encounter Details +--------+ + + + + | Date | Type | Department | Care Team | Description | +--------+ + + + + | 12/22/ | Anesthesia | [facility] | Samy Mccartyuel, | | | 2019 | Event | CENTER CV INTRA OP | [address] | | | | | [address] | [place] [address] | | | | | [place], [place] | Carlos Salinas, | | | | | [address] | BOTTLE LABEL INSPECTOR [address] | | | | | [phone] | [place] [address] | | | | | | [phone] | | | | | | | | +--------+ + + + + Anesthesia Record + + + + + | Procedure Name | Responsible | Anesthesia Start | Anesthesia Stop Time | | | Anesthesiologist | Time | | + + + + + | CV EP CARDIOVERSION | George Mccarty MD | 12/22/18 1327 | 12/22/18 1344 | | (N/A ) | | | | + + + + + +----+---+ + + | Da | T | Event | Comment | | te | i | | | | | m | | | | | e | | | +----+---+ + + | 11 | 1 | | | | /1 | 3 | | | | 1/ | 2 | | | | 20 | 1 | | | | 19 | | | | +----+---+ + + | | 1 | First | | | | 3 | Inc/Proc St | | | | 2 | | | | | 5 | | | +----+---+ + + | | 1 | An Start | Reassessment prior to anesthesia induction/procedure. | | | 3 | | | | | 2 | | | | | 7 | | | +----+---+ + + | | 1 | An | | | | 3 | Induction | | | | 3 | | | | | 3 | | | +----+---+ + + | | 1 | an frank now | | | | 3 | | | | | 3 | | | | | 5 | | | +----+---+ + + | | 1 | an stop | | | | 3 | data | | | | 4 | | | | | 1 | | | +----+---+ + + | | 1 | An Stop | Patient handed off to recovery nurse. | | | 4 | | | | | 4 | | | +----+---+ + + +------+ | Meds | +------+ + +--------+ | Name | Total | + +--------+ | propofol | 110 mg | + +--------+ | NS (Infusion) | 150 mL | + +--------+ + + | Name [...] +--------+ + + + | Periph | 12/22/18; 1207; Left; | 12/22/18 1207 by | 12/22/18 1330 by | | eral | Antecubital; culn-ino-jwbmdv | Kandi Alas, | Gaby Junior RN | | IV | catheter system; 20 gauge; | RN | | | | Hematology; site symptomatic; | | | | | 12/22/18; 1330 | | | +--------+ + + + | Periph | 12/22/18; 1330; Left; Anterior | 12/22/18 1330 by | 12/22/18 1520 by | | eral | (palmar); Forearm; | Jace Marc, | Gaby Junior RN | | IV | cmse-smk-anxoga catheter system; | RN | | | | 22 gauge; no longer indicated, | | | | | catheter/device intact; 12/22/18; | | | | | 1520 | | | +--------+ + + + [...] [address] | | | | | | [facility] | | | | | | [place] | | | | | | [address] | | | | | | | | +--------+---------+ + + + documented as of this encounter Visit Diagnoses Not on filedocumented in this encounter Administered Medications + +--------+ +-------+------+------+ | Medication Order | MAR | Action | Dose | Rate | Site | | | Action | Date | | | | + +--------+ +-------+------+------+ | propofol (DIPRIVAN) injection | Given | 12/23/19 | 40 mg | | | | Intravenous, PRN, Starting Mon | | 19 1:35 | | | | | 12/22/18 at 1333, Anesthesia | | PM PST | | | | | Intra-op | | | | | | + +--------+ +-------+------+------+ +-------+ +-------+---+---+ | Given | 12/23/19 | 40 mg | | | | | 19 1:34 | | | | | | PM PST | | | | +-------+ +-------+---+---+ | Given | 12/23/19 | 30 mg | | | | | 19 1:33 | | | | | | PM PST | | | | +-------+ +-------+---+---+ +---+---+ | | | +---+---+ + +---------+ +---+---+---+ | sodium chloride 0.9% (NS) | New Bag | 12/23/19 | | | | | infusion Intravenous, CONTINUOUS | | 19 1:27 | | | | | PRN, Starting 12/22/18 at | | PM PST | | | | | 1327, Anesthesia Intra-op | | | | | | + +---------+ +---+---+---+ +---+---+ | | | +---+---+ documented in this encounter"
--- OUTSIDE RECORDS SUMMARY | ~2019-07-17 | XMS | Encounter Summary ---
Demographics + + + | Address | [address] | | | [place] [address] | + + + | Home Phone | | + + + | Preferred Language | Unknown | + + + | Marital Status | | + + + | Episcopal Affiliation | Unknown | + + + [...] [place] | | | | | [address] | | + + + + + | Beatrice Paulson | ECON | [address] | | | | | [place] | | | | | [address] | | + + + + + Care Team Providers + +------+ + | Care Foot Roentgenologist Name | Role | Phone | + +------+ + | Venkata Pettit MD | PCP | | + +------+ + Encounter Details +--------+ + + + + | Date | Type | Department | Care Team | Description | +--------+ + + + + | 01/13/ | Hospital | [facility] | Wilton Smith, | | | 2012 - | Encounter | MED CTR SURGICAL | DO [address] | | | | | [address] | [place] [address] [place] [address] | | | 01/15/ | | [place] [address] | [id number] | | | 2012 | | [phone] | | | +--------+ + + + [...] + + documented as of this encounter Discharge Summaries Wilton Smith DO - 01/16/2013 2:15 [place] [address] Patient Name: HEMANT CUMMINSMEAGHAN Alarcon Provider: Wilton Smith DO Unit #: [id number] Location: [facility] Unit : 1940 ADMISSION DATE: 01/13/2013 DISCHARGE DATE: 01/15/2013 ADMISSION DIAGNOSES 1. Stenosis L1-L5. 2. Neurogenic claudication. 3. Spondylolisthesis L4-L5. DISCHARGE DIAGNOSES 1. SPINAL STENOSIS L1-L5. 2. NEUROGENIC CLAUDICATION. 3. SPONDYLOLISTHESIS L4-5. SERVICE: Neurosurgery, Dr. Smith attending. PROCEDURE PERFORMED: Lumbar fusion L1-L5, performed 01/13/[address] Smith. HOSPITAL COURSE: The patient was admitted 01/13/2013 to undergo elective lumbar fusion. It was a posterolateral fusion, L1-2 with lateral interbody fusion L2-3 and L3-4 and transfor aminal lumbar interbody fusion L4-L5. The patient tolerated the procedure quite well. Posto peratively, her course was uneventful. She required routine pain management and was ambulat ing with physical therapy. She had some preexisting right leg weakness for which she was de termined to be a good inpatient rehabilitation candidate. She was tolerating her oral intak e and pain was controlled on oral pain medicines. She was therefore transferred to [facility] rehabilitation. DISPOSITION: Transferred to inpatient rehabilitation. CONDITION: Improving. SPECIAL INSTRUCTIONS: The patient is instructed to participate with inpatient rehab. Avoid any extreme bending or twisting of her back. No lifting more than 5 pounds. Follow up with Dr. Smith as directed. She has verbally agreed to comply with these instructions. DISCHARGE MEDICATIONS 1. Tylenol. 2. Doyle. 3. Maalox as needed. 4. Dulcolax as needed. 5. Coreg. 6. Vitamin B complex. 7. Tranxene. 8. Colace. 9. Vasotec. 10. Neurontin. 11. Subcutaneous heparin. 12. Labetalol as needed for blood pressure control. 13. Lactulose. 14. Milk of magnesia. 15. Magnesium oxide. 16. Cepacol lozenges. 17. Robaxin as needed for muscle spasm. 18. Morphine as needed for pain. 19. Zofran as needed for nausea and vomiting. 20. Percocet. 21. GlycoLax. 22. Phenergan as needed for nausea and vomiting. 23. Senna. 24. Enema as needed for constipation. DICTATED BY: Wilton Smith DO Neurosurgery JOB #: [id number] EXT JOB #:[id number] <<Signature on File>> Wilton Smith DO1 03/22/12 0705 < documented in this encounter Medications at Time [...] ASPIRIN PO | Take 81 mg by mouth. | | 0 | | | | | | | | | 4 | + [...] + + + +---------+ + + | diazepam (VALIUM) | Take 1 tablet by | 60 | 0 | 01/07/20 | | | 5 mg | mouth every 6 hours | tablet | | 13 | 4 | | tabletIndications: | as needed (MUSCLE | | | | | | Status post lumbar | SPASMS ). | | | | | | spinal fusion | | | | | | + + + +---------+ + + | GABAPENTIN PO | Take by mouth. | | 0 | | | | | 900mg qam and 900mg | | | | 5 | | | qpm | | | | | + + + +---------+ + + | Lactulose 20 | Take 20 g by mouth | 240 mL | 1 | 01/07/20 | | | GM/30ML | every 6 hours as | | | 13 | 4 | | SOLNIndications: | needed. | | | | | | Status post lumbar | | | | | | | spinal fusion | | | | | | + + + +---------+ + + | NAPROXEN | Take 220 mg by mouth | | 0 | | | | | 2 times daily. | | | | 4 | + + + +---------+ + + | | Take 1-2 tablets by | 60 | 0 | 01/07/20 | | | oxyCODONE-acetaminop | mouth every 4 hours | tablet | | 13 | 4 | | hen (PERCOCET) 5-325 | as needed for Pain. | | | | | | mg per | | | | | | | tabletIndications: | | | | | | | Status post lumbar | | | | | | | spinal fusion | | | | | | + [...] [address] | | | | | | [facility] | | | | | | [place] | | | | | | [address] | | | | | | | | +--------+---------+ + + + documented as of this encounter Procedures + +--------+ + + + | Procedure Name | Priori | Date/Time | Associated Diagnosis | Comments | | | ty | | | | + +--------+ + + + | URINALYSIS, REFLEX | Routin | 01/14/2013 | | Results for this | | MICROSCOPIC AND/OR | e | 7:43 PM | | procedure are in the | | CULTURE | | PST | | results section. | + +--------+ + + + | XR LUMBAR SPINE 2 OR | Routin | 01/14/2013 | | Results for this | | 3 VW | e | 4:02 PM | | procedure are in the | | | | PST | | results section. | + +--------+ + + + | TYPE AND SCREEN | Routin | 01/13/2013 | | Results for this | | | e | 7:15 AM | | procedure are in the | | | | PST | | results section. | + +--------+ + + + documented in this encounter Results Urinalysis, Reflex Microscopic and/or Culture (01/14/2013 7:43 PM PST) + + + + + + | Component | Value | Ref Range | Performed | Pathologist | | | | | At | Signature | + + + + + + | COLLECTION | BRITO | | [facility] | | | [facility] | | | [facility] | | | | | | MEDICAL | | | | | | CENTER - | | | | | | LABORATORY | | + + + + + + | Color, | YELLOW | | [facility] | | | Urine | | | [facility] | | | | | | MEDICAL | | | | | | CENTER - | | | | | | LABORATORY | | + + + + + + | Clarity | CLEAR | | [facility] | | | | | | [facility] | | | | | | MEDICAL | | | | | | CENTER - | | | | | | LABORATORY | | + + + + + + | Glucose, | NEGATIVE | NEGATIVE mg/dL | [facility] | | | Urine | | | [facility] | | | | | | MEDICAL | | | | | | CENTER - | | | | | | LABORATORY | | + + + + + + | Bilirubin, | NEGATIVE | NEGATIVE | [facility] | | | Urine | | | [facility] | | | | | | MEDICAL | | | | | | CENTER - | | | | | | LABORATORY | | + + + + + + | Ketones, | NEGATIVE | NEGATIVE | [facility] | | | Urine | | | [facility] | | | | | | MEDICAL | | | | | | CENTER - | | | | | | LABORATORY | | + + + + + + | Specific | <=1.005 | 1.001 - 1.030 | [facility] | | | [place], | | | [facility] | | | Urine | | | MEDICAL | | | | | | CENTER - | | | | | | LABORATORY | | + + + + + + | Blood, | NEGATIVE | NEGATIVE | [facility] | | | Urine | | | [facility] | | | | | | MEDICAL | | | | | | CENTER - | | | | | | LABORATORY | | + + + + + + | pH, Urine | 6.0 | 5.0 - 8.0 | [facility] | | | | | | [facility] | | | | | | MEDICAL | | | | | | CENTER - | | | | | | LABORATORY | | + + + + + + | Protein, | NEGATIVE | NEGATIVE mg/dL | [facility] | | | Urine | | | [facility] | | | | | | MEDICAL | | | | | | CENTER - | | | | | | LABORATORY | | + + + + + + | Urobilinoge | NORMAL | NORMAL EU/dL | [facility] | | | n, Urine | | | [facility] | | | | | | MEDICAL | | | | | | CENTER - | | | | | | LABORATORY | | + + + + + + | Nitrite, | NEGATIVE | NEGATIVE | [facility] | | | Urine | | | [facility] | | | | | | MEDICAL | | | | | | CENTER - | | | | | | LABORATORY | | + + + + + + | Leukocyte | NEGATIVE | NEGATIVE | [facility] | | | Esterase, | | | [facility] | | | Urine | | | MEDICAL | | | | | | CENTER - | | | | | | LABORATORY | | + + + + + + | MICROSCOPIC | NO | | [facility] | | | ? | | | [facility] | | | | | | MEDICAL | | | | | | CENTER - | | | | | | LABORATORY | | + + + + + + + + | Specimen | + + | | + + + + + + + | Performing | Address | City/State/Zipcode | Phone Number | | Organization | | | | + + + + + | [facility] | [address] | [place], [place] | [phone] | | [facility] | | [address] | | | - LABORATORY | | | | + + + + + | [facility] | [address] | [place], [place] | | | [facility] | | [id number] | | | - LABORATORY | | | | + + + + + XR Lumbar Spine 2 or 3 Vw (01/14/2013 4:02 PM PST) + + | Specimen | + + | | + + + + + | Narrative | Performed At | + + + | [facility] | [place] | | Department [address] [facility] [place] | [facility] | | [ rep [address]] [ rep [facility] | | st zip] Signed | - IMAGING | | | | | Patient Name: KASSIE CUMMINS Physician: | | | SYL. : 1940 Age: 72 Sex: F Unit #: [id number] | | | Exam Date: 01/14/13 Location: [address] [place] [address] | | | Report #: [id number] Page: | | | %(RAD)RES..mtdd.print.filter("pg") of %(RAD) | | | RES..mtdd.print.filter("tpg") | | | | | | Accession Number: [id number] | | | LUMBAR SPINE CLINICAL HISTORY: FOLLOWUP FUSION. | | | COMPARISON: 11/24/2012. FINDINGS: Posterior | | | pedicle screw and ashwin fixation has been performed from L1 to L5. | | | Interbody spacers are present in L2-3, L3-4, and L4-5. The | | | patient's previous interspinous plate is in unchanged position, | | | across the spinous processes of L3-4. There is stable | | | anterolisthesis of L4 on L5 measuring approximately 1 cm. | | | Alignment is otherwise normal. Surgical drain is present | | | posteriorly. Bilateral pedicles screws are present, except at L3, | | | where only a right screw is present. IMPRESSION: 1. | | | POSTERIOR PEDICLE SCREW AND ASHWIN FIXATION FROM L1 TO L5. INTERBODY | | | FUSIONS HAVE ALSO BEEN PERFORMED AT L2-3, L3-4, AND L4-5. THERE | | | IS STABLE ANTEROLISTHESIS OF L4 ON L5. Dictated | | | Date/Time: 01/14/2013 16:02 Transcribed Date/Time: 01/14/2013 | | | 17:16 Hhas: <<Signature | | | on File>> | | | | | | Michael Lopez MD01/15/13 0755 <Electronically signed by | | | Michael Lopez MD> Michael Lopez MD 01/14/13 | | | 1602 Hhas: TuManitas Eazczdmkbkfgm20/04/13 1716 | | | | | + + + + + + + + | Performing | Address | City/State/Zipcode | Phone Number | | Organization | | | | + + + + + | [facility] | [address] | [place] | [phone] | | [facility] | | [address] | | | - IMAGING | | | | + + + + + Type and Screen (01/13/2013 7:15 AM PST) + + + + + + | Component | Value | Ref Range | Performed | Pathologist | | | | | At | Signature | + + + + + + | ABO | OP | | [facility] | | | | | | [facility] | | | | | | MEDICAL | | | | | | CENTER - | | | | | | LABORATORY | | + + + + + + | Antibody | NEGATIVE | | [facility] | | | Screen | | | [facility] | | | | | | MEDICAL | | | | | | CENTER - | | | | | | LABORATORY | | + + + + + + + + | Specimen | + + | | + + + + + + + | Performing | Address | City/State/Zipcode | Phone Number | | Organization | | | | + + + + + | [facility] | [address] | [place] | [phone] | | [facility] | | [address] | | | - LABORATORY | | | | + + + + + | [facility] | [address] | [place] | | | [facility] | | [address] | | | - LABORATORY | | | | + + + + + documented in this encounter Visit Diagnoses Not on filedocumented in this encounter
--- OUTSIDE RECORDS SUMMARY | ~2019-07-17 | XMS | Encounter Summary ---
Demographics + + + | Address | [address] | | | [place] [address] | + + + | Home Phone | | + + + | Preferred Language | Unknown | + + + | Marital Status | | + + + | Bahai Affiliation | Unknown | + + + | Race | Unknown | + + + | Ethnic Group | Unknown | + + + Author + + + | Author | [facility] | | | and [place] | + + + | Organization | [facility] | | | and [place] | + + + | Address | Unknown | + + + | Phone | Unavailable | + + + Support + + + + + | Name | Relationship | Address | Phone | + + + + + | Veronica Anderson | ECON | [place] | | | | | [address] | | + + + + + | Beatrice Paulson | ECON | [address] | | | | | [place] | | | | | [address] | | + + + + + Care Team Providers + +------+ + | Care Pole Tester Name | Role | Phone | + [...] | DriveNathaniel | | | | | ([facility]) | [place], [place] | [facility] | | | | | | [address] | [place] [address] | | | | | | Phone: | Phone: | | | | | | [phone] | [phone] | | | | | | Fax: | Fax: | | | | | | [phone] | [phone] | + + + + + + [...] | Procedures | RICK REICH | DR [address] | | | | | CONSULT | [place], | [place], [place] | | | | | | [place] [address] | [address] Phone: | | | | | | Phone: | [phone] | | | | | | [phone] | Fax: | | | | | | Fax: | [phone] | | | | | | [phone] | | +--------+--------+ + + + + Encounter Details +--------+---------+ + + + | Date | Type | Department | Care Team | Description | +--------+---------+ + + + | 12/31/ | Office | [facility] | Lori Recinos DO | Other persistent | | 2019 | Visit | CARDIOLOGY TERA | [address] | atrial fibrillation | | | | [address] | [place], [place] | (HCC) (Primary Dx); | | | | [address] [place] | [address] | Persistent atrial | | | | [address] | | fibrillation ([facility]); | | | | [phone] | | Hypertension, | | | | [...] Recinos DO - 12/31/2018 3:[address] [facility] Cardiology Cardiology Follow Up Note [...] any recent chest pains. She tried to picker tender helper the Eliquis, but was unable to afford [...] 3. There is moderate bi-atrial enlargement. 4. Kkta-zv-uuklzbsj mitral regurgitation is present. Last stress test: [...] found to be in atrial fibrillation. Her SXBUN4UKTA is 4. She had a recent e [...] [address] | | | | | | [facility] | | | | | | [place] | | | | | | [address] | | | | | | | | +--------+---------+ + + + + + +--------+ + + | Name | Type | Priori | Associated Diagnoses | Order Schedule | | | | ty | | | + + +--------+ + + | Ambulatory referral | Outpatient | Routin | Other persistent | Ordered: 12/31/2018 | | to [facility] Cardiac | Referral | e | atrial [...] | | | | | by [facility] Read Only, | | | | | | [facility] ([id number]), | | | | | | editor farm journal Noe Lozano | | | | | [...]
--- OUTSIDE RECORDS SUMMARY | ~2019-07-17 | XMS | Encounter Summary ---
Demographics + + + | Address | [address] | | | [place] [address] | + + + | Home Phone | | + + + | Preferred Language | Unknown | + + + | Marital Status | | + + + | Mandaen Affiliation | Unknown | + + + | Race | Unknown | + + + | Ethnic Group | Unknown | + + + Author + + + | Author | [facility] | | | and [place] | + + + | Organization | [facility] | | | and [place] | + + + | Address | Unknown | + + + | Phone | Unavailable | + + + Support + + + + + | Name | Relationship | Address | Phone | + + + + + | Veronica Anderson | ECON | [place] | | | | | [address] | | + + + + + | Beatrice Paulson | ECON | [address] | | | | | [place] | | | | | [address] | | + + + + + Care Team Providers + +------+ + | Care Curing Room Supervisor Name | Role | Phone | [...] | +--------+ + + + + | 01/31/ | Telephone | [facility] | Wilton Smith, | Other | | 2014 | | NEUROSURGERY [address] | DO [address] | | | | | [address] | [address] [place], [place] | | | | | [place], [place] | [id number] | | | | | [id number] | | | | | | [phone] | | | +--------+ + + + [...] | | | | | Lizzie Garcia [facility] | | | | | | [place] | | | | | | [address] | | | | | | | | +--------+---------+ + + + documented as of this encounter Visit Diagnoses Not on filedocumented in this encounter"
--- OUTSIDE RECORDS SUMMARY | ~2019-07-17 | XMS | Encounter Summary ---
Demographics + + + | Address | [address] | | | [place] [address] | + + + | Home Phone | | + + + | Preferred Language | Unknown | + + + | Marital Status | | + + + | Mandaen Affiliation | Unknown | + + + | Race | Unknown | + + + | Ethnic Group | Unknown | + + + Author + + + | Author | [facility] | | | and [place] | + + + | Organization | [facility] | | | and [place] | + + + | Address | Unknown | + + + | Phone | Unavailable | + + + Support + + + + + | Name | Relationship | Address | Phone | + + + + + | Veronica Anderson | ECON | [place] | | | | | [address] | | + + + + + | Beatrice Paulson | ECON | [address] | | | | | [place] | | | | | [address] | | + + + + + Care Team Providers + +------+ + | Care Animal Care Assistant Name | Role | Phone | [...] + + | 04/28/ | Office | [facility] | Tyrel Orellana | Paroxysmal atrial | | 2020 | Visit | CARDIOLOGY [place] | MD [address] | fibrillation (HCC) | | | | [address] | Loccit (ML4D)[facility] | (Primary Dx); Sleep | | | | [facility] [place] | [place] | apnea, unspecified | | | | [address] | [address] | type | | | | [phone] | | | +--------+---------+ + + + [...] ABLATION AF; Surgeon: Tyrel Orellana MD; [place] [facility] [place] 04/04/2019 Procedure: ENDARTERECTOMY FEMORAL Will need arteriogram in IR initially under moderate se dation and if not amenable to stenting then will need left groin cut down.; Surgeon: Elizabeth Mullen DO; [place] [facility] [place] N/A 12/22/2018 Procedure: CV EP CARDIOVERSION; Surgeon: Lori Recinos DO; [place] [facility] [place] CARDI[place]ERS[place] N/A 02/20/2019 Procedure: CV EP CARDIOVERSION; Surgeon: Tyrel Orellana MD; [place] [facility] [place]/A 04/07/2019 Procedure: CV EP CARDIOVERSION; Surgeon: Tyrel Orellana MD; [place] [facility] [place] Cataract Surgery 10/29/2011(left eye, Right [...] removed Left 08/25/14 Performed by Rufina Bach, SAFETY REPRESENTATIVE for Dr. Shah, [place] TOTAL KNEE ARTHROPLASTY Left 06/28/[address] Will at [facility] [place] TOTAL KNEE ARTHROPLASTY TRANSTHORACIC ECHOCARDIOGRAM 08/2018 EF [...] cardiovers ion performed in December 2018 with presybeterian of sinus rhythm. She did note an improveme nt in her symptoms with presybeterian of sinus rhythm but unfortunately symptoms returned [...] | | | | | | [facility] | | | | | | [place] | | | | | | [address] | | | | | | | [...] MD | | | | | | ([id number]) on 04/29/2019 | | | | | [...]
--- OUTSIDE RECORDS SUMMARY | ~2019-07-17 | XMS | Encounter Summary ---
Demographics + + + | Address | [address] | | | [place] [address] | + + + | Home Phone [...] [place] | | | | | [address] | | + + + + + | Beatrice Paulson | ECON | [address] | | | | | [place] | | | | | [address] | | + + + + + Care Team Providers + +------+ + | Care Cage Operator Name | Role | Phone | + +------+ + | Parvez Vail MD | PCP | | + +------+ + Reason for Visit +--------+ + | Reason | Comments | +--------+ + | Other | Patient had a fall. | +--------+ + Encounter Details +--------+ + + + + | Date | Type | Department | Care Team | Description | +--------+ + + + + | 01/21/ | Telephone | [facility] | Destini Espinoza | Other (Patient had a | | 2018 | | CARDIOLOGY [place] Rubin, [employer] | leslie. ) | | | | [address] | | | | | | [place], [place] | | | | | | [address] | | | | | | [phone] | | | +--------+ + + + [...] [place] | | | | | | [address] | | | | | | | | +--------+---------+ + + + documented as of this encounter Visit Diagnoses Not on filedocumented in this encounter"
--- OUTSIDE RECORDS SUMMARY | ~2019-07-17 | XMS | Clinical Summary ---
Demographics + + + | Address | [address] | | | [place] [address] | + + + | Home Phone | | + + + | Preferred Language | Unknown | + + + | Marital Status | Single | + + + | Sikhism Affiliation | Unknown | + + + | Race | White | + + + | Ethnic Group | Not or | + + + Author + + + | Author | [facility] | + + + | Organization | [facility] | + + + | Address | Unknown | + + + | Phone | Unavailable | + + + Support + + +---------+ + | Name | Relationship | Address | Phone | + + +---------+ + | Beatrice Paulson | ECON | Unknown | | + + +---------+ + Care Team Providers + +------+ + | Care Rotating Equipment Specialist Name | Role | Phone | + +------+ + | Venkata Pettit MD | PCP | | + +------+ + Source Comments [facility] is fully live on both [facility] and [facility] InPatient.[facility] Allergies No Known Allergies Medications + + + +---------+------+------+-------+ | Medication | Sig | Dispensed | Refills | Star | End | Statu | | | | | | t | Date | s | | | | | | Date | | | + + + +---------+------+------+-------+ | carvedilol 12.5 mg | Take 12.5 mg by | | 0 | | | Activ | | Oral tablet | mouth two times | | | | | e | | | daily. Administer | | | | | | | | with food. | | | | | | + + + +---------+------+------+-------+ | naproxen sodium | Take 220 mg by mouth | | 0 | | | Activ | | 220 mg Oral tablet | two times daily. | | | | | e | + + + +---------+------+------+-------+ | aspirin EC 81 mg | Take 81 mg by mouth | | 0 | | | Activ | | Oral tablet,delayed | once daily. | | | | | e | | release (DR/EC) | | | | | | | + + + +---------+------+------+-------+ | CALCIUM | Take 2,000 Units by | | 0 | | | Activ | | CARBONATE/VITAMIN D3 | mouth once daily. | | | | | e | | (VITAMIN D-3 ORAL) | | | | | | | + + + +---------+------+------+-------+ | Magnesium 250 mg | Take by mouth. | | 0 | | | Activ | | Oral tablet | | | | | | e | + + + +---------+------+------+-------+ | gabapentin 300 mg | Take 1 capsule by | 90 | 6 | 08/2 | | Activ | | Oral | mouth three times | capsule | | 8/20 | | e | | capsuleIndications: | daily. Indications: | | | 13 | | | | neuropathic pain | Neuropathic Pain | | | | | | + + + +---------+------+------+-------+ Active Problems Not on file Social History + +-------+ +--------+------+ | Tobacco [...] + + + + Plan of Treatment + + + + + | Health Maintenance | Due Date | Last Done | Comments | + + + + + | Pneumococcal | | | | | vaccination (1 of 2 | 8 | | | | - PCV13) | | | | + + + + + | Influenza (Flu) | | | | | vaccination (#1) | 9 | | | + + + + + Results Not on filefrom Last 3 Months Insurance + +--------+ +--------+ [...] + +--------+ | MEDICARE | MEDICA | xxxxxxxxxx | 10/13/19 | [phone] | [address] | Med[address] | | | RE A & | | 08-Pre | 1 | [address] | [address] | | | B | | sent | | [place] | | | | | | | | [address] | | + +--------+ +--------+ + +--------+ | MODA MEDICARE | MODA | xxxxxxxxx | 01/31/ | [phone] | [address] | POS | | SUPPLEMENT | MEDICA | | 2015-P | 4 | [id number] | | | | RE | | resent | | [place], | | | | SUPPLE | | | | [place] [address] | | | | MENT | | | | | | + [...] | Self | [birth year] | [address] | | | al/Fam | | 1941 | [phone] | [place] [address] | | | theresa | | | [address] (Home) | | + +--------+ +--------+ + +"
--- OUTSIDE RECORDS SUMMARY | ~2019-07-17 | XMS | Encounter Summary ---
Demographics + + + | Address | [address] | | | [place] [address] | + + + | Home Phone | | + + + | Preferred Language | Unknown | + + + | Marital Status | | + + + | Restoration Affiliation | Unknown | + + + [...] [place] | | | | | [address] | | + + + + + | Beatrice Paulson | ECON | [address] | | | | | [place] | | | | | [address] | | + + + + + Care Team Providers + +------+ + | Care Orthopedic Tech Name | Role | Phone | [...] | | discomfort | MD Reji | Fausto Nuc | | | | | Procedures | [address] | Med 1100 | | | | | NM Nuclear | [place] | [address] | | | | | Stress Test | Nathaniel Garcia | [place], [place] | | | | | (Vasodilator | [facility], | [address] | | | | | ) | [place] [address] | Phone: | | | | | | Phone: | [phone] | | | | | | [phone] | Fax: | | | | | | Fax: | [phone] | | | | | | [phone] | | +--------+--------+ + + + + Diagnostic/Screening (Routine) + +--------+ + + + + | Status | Reason | Specialty | Diagnoses / | Referred By | Referred To | | | | | Procedures | Contact | Contact | + +--------+ + + + + | Pending | | Radiology | Diagnoses | [place], | [facility] | | Review | | | Persistent | Elvin | REGIONAL | | | | | atrial | MD Reji | MEDICAL | | | | | fibrillation | [address] | CENTER [address] | | | | | ([facility]) | [address] | [address] | | | | | Procedures | Drive, Nathaniel F | [place], [place] | | | | | CT Angio Lt | [place], | [address] | | | | | Atrium/Pulmo | [place] [address] | Phone: | | | | | wes [address]offett | Phone: | [phone] | | | | | Cont | [phone] | Fax: | | | | | | Fax: | [phone] | | | | | | [phone] | | + +--------+ + + + + Reason for Visit + + + | Reason | Comments | + + + | Follow-up | | + + + Encounter Details +--------+---------+ + + + | Date | Type | Department | Care Team | Description | +--------+---------+ + + + | 03/06/ | Office | [facility] EP | Elvin Orellana | Persistent atrial | | 2020 | Visit | CARDIOLOGY FAUSTO | MD Reji [address] | fibrillation (HCC) | | | | [address] | 5 examples, [facility] | (Primary Dx); Chest | | | | [place], [place] | F [place], [place] | discomfort; Sleep | | | | [address] | [address] | apnea, unspecified | | | | [phone] | | type | +--------+---------+ + + + Social [...] + + + | Blood Pressure | 120/72 | 03/06/2019 11:17 AM | | | | | PST | | + + + + + | Pulse | 83 | 03/06/2019 11:17 AM | | | | | PST | | + + + + + | Temperature | - | - | | + + + + + | Respiratory Rate | - | - | | + + + + + | Oxygen Saturation | 98% | 03/06/2019 11:17 AM | | | | | PST | | + + + + + | Inhaled Oxygen | - | - | | | Concentration | | | | + + + + + | Weight | 127.6 kg (281 lb 4.8 | 03/06/2019 11:17 AM | | | | oz) | PST | | + + + + + | Height | 172.7 cm (5' 8") | 03/06/2019 11:17 AM | | | | | PST | | + + + + + | Body Mass Index | 42.77 | 03/06/2019 11:17 AM | | | | | PST | | + + + + + documented in this encounter Progress Notes Elvin Orellana MD - 03/06/2019 10:15 AM PSTFormatting of this note might be dif ferent from the original. Subjective: Referring MD: No ref. provider found Chief Complaint Patient presents with Follow-up HPI: This is a 78 y.o. female who presents today for follow-up of atrial fibrillation. Ms. Bear underwent cardioversion with orthodox of sinus rhythm several weeks ago. She be lieves the atrial fibrillation recurred shortly after the procedure. She is interested in c onsidering possible ablation as she continues to believe her fatigue and trouble sleeping is related to her atrial fibrillation. She denies any current shortness of breath, dizziness, lightheadedness, or recent syncope. She has noted some occasional twinges in her left ches t and does not recall if she has had a stress test in the past. She continues on anticoagul ation with warfarin. She is still attempting to schedule a sleep evaluation close to home. Past Medical History: Diagnosis Date Arthralgia Atrial fibrillation (HCC) Dx 08/29 - AC - amio - CVN 12/30 and 03/02 BACK PAIN, LUMBAR Carpal tunnel syndrome Chronic [...] EP CARDIOVERSION; Surgeon: Lori Recinos DO; [place] [facility] CARDIOVERSION N/A 02/20/2019 Procedure: CV EP CARDIOVERSION; Surgeon: Elvin Orellana MD; [place] [facility] Cataract Surgery 10/29/2011(left eye, Right [...] 08/25/14 Performed by Rufina Bach NP for Oc [facility] TOTAL KNEE ARTHROPLASTY Left 06/28/[address] Will at [facility] TOTAL KNEE ARTHROPLASTY TRANSTHORACIC ECHOCARDIOGRAM 08/2018 [...] HOW IT MADE HER FEEL. Objective: Vitals: 03/06/19 1117 BP: 120/72 Pulse: 83 Weight: 127.6 kg (281 lb 4.8 oz) Height: 1.727 m (5' 8") Body mass index is 42.77 kg/m. Exam: General: Patient is alert, pleasant, [...] Atrial fibrillation with ventricular response rate of 68 bpm, compared to the EKG of 2019 sinus rhythm has been replaced with atrial fibrillation Impression/Plan: Kassie was seen today for follow-up. Diagnoses and all orders for this visit: Persistent atrial fibrillation - ECG 12 lead - CT Angio Lt Atrium/Pulmonary Vein w Cont; Future - Case Request - CV/EP LAB: CV EP ABLATION AF Chest discomfort - NM Nuclear Stress Test (Vasodilator); Future Sleep apnea, unspecified type Other orders - Vital signs; Standing - Pulse oximetry, continuous; Standing - Cardiac telemetry; Standing - Diet NPO; strict NPO; Effective Now; Standing - ECG 12 lead; Standing - Void risk control director to OR; Standing - Skin prep; Standing [...] and cardioversion performed in December 2018 with orthodox of sinus rhythm. She did note an improvement in her symptoms with orthodox of sinus rhythm but unfortunately symptoms returned about 2 t o 3 days after the cardioversion. Persistent atrial fibrillation has been noted since. She elected to undergo cardioversion after further amiodarone loading and sinus rhythm was rest ored recently. Unfortunately atrial fibrillation has recurred and she continues with sympto ms. We discussed rate versus rhythm control. She has elected to continue with a rhythm con trol strategy and we discussed pulmonary vein isolation. I reviewed the risks and benefits of the procedure and she would like to proceed in the near future. She will have a CT scan of the chest to assess her pulmonary vein anatomy prior to the procedure. She continues on amiodarone 200 mg daily in addition to atenolol 50 mg daily. She continues on warfarin to m naiain an INR between 2 and 3. Unfortunately, the novel oral anticoagulants are expensive under her current pharmacy plan. Her echocardiogram performed in August 2018 demonstrated nor mal left ventricular function but moderate biatrial enlargement was noted. 2) Chest discomfort - She has noted occasional twinges below her left breast on and off for the past several months. I have recommended a pharmacologic stress test to exclude any per fusion abnormalities prior to general anesthesia with her ablation. 3) Sleep apnea - She has multiple risk factors for obstructive sleep apnea. I again recomm ended she obtain a sleep evaluation close to her home. She is aware of the association of o bstructive sleep apnea with atrial dysrhythmias. I recommended she start CPAP if indicated. This encounter was dictated with voice recognition software and may contain inadvertent rec ognition errors. documented in this encounter Plan of Treatment +--------+---------+ + + + | Date | Type | Specialty | Care Team | Description | +--------+---------+ + + + | 10/06/ | Office | Cardiology | Elvin Orellana | | 2019 | Visit | | MD Reji [address] | | | | | | [facility] | | | | | | [place] | | | | | | [id number] | | | | | | | | +--------+---------+ + + + documented as of this encounter Procedures + +--------+ + + + | Procedure Name | Priori | Date/Time | Associated Diagnosis | Comments | | | ty | | | | + +--------+ + + + | ECG 12 LEAD | Routin | 03/06/2019 | Persistent atrial | Results for this | | | e | 11:22 AM | fibrillation (HCC) | procedure are in the | | | | PST | | results section. | + +--------+ + + + documented in this encounter Results NM Nuclear Stress Test (Vasodilator) (03/19/2019 10:27 AM PST) + +--------+ + + + | Component | Value | Ref Range | Performed | Pathologist | | | | | At | Signature | + +--------+ + + + | BASELINE | 76 | bpm | [facility] | | | HEART RATE | | | | | + +--------+ + + + | BASELINE | 144/97 | mmHg | [facility] | | | BLOOD | | | | | | PRESSURE | | | | | + +--------+ + + + | PEAK HEART | 105 | | [facility] | | | RATE | | | | | + +--------+ + + + | PEAK BLOOD | 159/83 | mmHG | [facility] | | | PRESSURE | | | | | + +--------+ + + + | Target HR | 122 | | [facility] | | + +--------+ + + + | Percent HR | 73 | | [facility] | | + +--------+ + + + | Max | 144 | | [facility] | | | Predicted | | | | | | HR | | | | | + +--------+ + + + | LVEF-SPECT | 66 | % | [facility] | | | NUCLEAR | | | | | | STRESS/VIAB | | | | | | ILITY | | | | | + +--------+ + + + | NM stress | 101 | | [facility] | | | end | | | | | | diastolic | | | | | | volume | | | | | + +--------+ + + + | NM stress | 34 | | [facility] | | | end | | | | | | systolic | | | | | | volume | | | | | + +--------+ + + + | NM rest end | 123 | | [facility] | | | diastolic | | | | | | volume | | | | | + +--------+ + + + | NM rest end | 46 | | [facility] | | | systolic | | | | | | volume | | | | | + +--------+ + + + | TID VALUE | 0.93 | | [facility] | | + +--------+ + + + | ST | 0.0 | mm | [facility] | | | Elevation | | | | | | (mm) | | | | | + +--------+ + + + + + | Specimen | + + | | + + + + + | Narrative | Performed At | + + + | 1. This is a | [facility] | | normal Lexiscan Cardiolite stress test.2. Resting images were | | | limited by breast attenuation artifact, this was improved on stress | | | images.3. There is no evidence of infarct or ischemia. 4. Ejection | | | fraction is 66%5. This is a low risk stress test. | | |5. This is a low risk stress test. | | + + + + + | Procedure Note | + + | Lori Recinos DO - 03/19/2019 10:32 AM PST 1. This is a normal Lexiscan Cardiolite | | stress test.2. Resting images were limited by breast attenuation artifact, this was | | improved on stress images.3. There is no evidence of infarct or ischemia. 4. Ejection | | fraction is 66%5. This is a low risk stress test. | |5. This is a low risk stress test. | + + + +---------+ + + | Performing | Address | City/State/Zipcode | Phone Number | | Organization | | | | + +---------+ + + | [facility] | | | | + +---------+ + + CT Angio Lt Atrium/Pulmonary Vein w Cont (03/12/2019 5:25 PM PST) + + | Specimen | + + | | + + + + + | Impressions | Performed At | + + + | *Normal CT angiogram of the left atrium and pulmonary veins. No | [facility] | | accessory veins identified. Pulmonary vein orifice measurements and | | | distance to first branch points given above. *The posterior wall of | | | the right inferior pulmonary vein abuts the esophagus. *Cardiomegaly | | | with enlarged left ventricle, left atrium and right atrium. | | | *Enlarged pulmonary trunk indicating pulmonary artery hypertension. | | | *Small hiatal hernia. Signed by: Na Pennington, | | | Madhavder Sign Date/Time: 03/16/2019 4:54 PM | | + + + + + + | Narrative | Performed At | + + + | CT HEART/LEFT ATRIUM CLINICAL INFORMATION: Atrial | [facility] | | fibrillation. Pulmonary vein mapping prior to pulmonary vein | | | ablation. COMPARISON: CHEST PA (12/25/2012); CHEST PORTABLE | | | SINGLE VIEW (03/12/2012); FLUORO GUIDNCE/NDLE PLCMNT ETC (12/16/2008); | | | PROCEDURE: Axial images through the heart after the uneventful | | | administration of 100ml Omnipaque 350 intravenous contrast. 3D and | | | multiplanar reconstructions were performed of the heart. At | | | least one of the following CT dose optimization techniques were used: | | | Automated exposure control; Adjustment of mA and/or kV according to | | | patient size; Use of iterative reconstruction technique. FINDINGS: | | | PULMONARY VEINS AND LEFT ATRIUM: There are four pulmonary veins, and | | | no accessory veins are identified. Measurements of the axial and | | | coronal diameter of the pulmonary vein orifices, and distance to | | | first branch points, and distance to esophagus are as follows: | | | Right superior pulmonary vein orifice diameter: 29.4 x 25.2 mm, | | | distance to first branch point: 9.6 mm, distance to esophagus: 6 mm. | | | Right inferior pulmonary vein orifice diameter: 20.8 x 16.8 mm, | | | distance to first branch point: 18.7 mm, distance to esophagus: 1 mm. | | | Left superior pulmonary vein orifice diameter: 20.3 x 15.3 mm, | | | distance to first branch point: 20.2 mm, distance to esophagus: 4.3 | | | mm. Left inferior pulmonary vein orifice diameter: 21.7 x 10 mm, | | | distance to first branch point: 20.8 mm, distance to esophagus: 21.4 | | | mm. CHEST Lungs, Pleura and Airways: No significant pulmonary | | | abnormality. Subsegmental atelectasis/scarring in right middle lobe, | | | lingular segment of left upper lobe and both lower lobes. No airway | | | narrowing or obstruction. No pleural effusion or pneumothorax. | | | Mediastinum: Cardiomegaly with enlarged left ventricle, left atrium | | | and right atrium.. Left-sided aortic arch. Mild aortic | | | atherosclerosis. The study is nondiagnostic for evaluation of | | | coronary arteries. Enlarged pulmonary trunk measuring 34.5 mm. No | | | evidence of pulmonary embolism in central pulmonary arteries. Small | | | hiatal hernia. Lymph Nodes: No enlarged mediastinal lymph nodes. | | | Upper Abdomen: No significant abnormality in the visualized upper | | | abdomen. BODY WALL Soft Tissues: The soft tissues of the chest | | | wall are unremarkable. Bones: No acute fracture or vertebral end | | | plate destruction. No lytic or blastic lesion. Mild thoracic | | | spondylosis. | | + + + + + | Procedure Note | + + | Bhavin, Rad Results In - 03/16/2019 4:58 PM PST | | CT HEART/LEFT ATRIUM | | | | CLINICAL INFORMATION: | | Atrial fibrillation. Pulmonary vein mapping prior to pulmonary vein | | ablation. | | | | COMPARISON: | | CHEST PA (12/25/2012); CHEST PORTABLE SINGLE VIEW (03/12/2012); FLUORO | | GUIDNCE/NDLE PLCMNT ETC (12/16/2008); | | | | PROCEDURE: | | Axial images through the heart after the uneventful administration of | | 100ml Omnipaque 350 intravenous contrast. 3D and multiplanar | | reconstructions were performed of the heart. | | | | At least one of the following CT dose optimization techniques were | | used: Automated exposure control; Adjustment of mA and/or kV according | | to patient size; Use of iterative reconstruction technique. | | | | FINDINGS: | | PULMONARY VEINS AND LEFT ATRIUM: There are four pulmonary veins, and no | | accessory veins are identified. | | | | Measurements of the axial and coronal diameter of the pulmonary vein | | orifices, and distance to first branch points, and distance to | | esophagus are as follows: | | | | Right superior pulmonary vein orifice diameter: 29.4 x 25.2 mm, | | distance to first branch point: 9.6 mm, distance to esophagus: 6 mm. | | | | Right inferior pulmonary vein orifice diameter: 20.8 x 16.8 mm, | | distance to first branch point: 18.7 mm, distance to esophagus: 1 mm. | | | | Left superior pulmonary vein orifice diameter: 20.3 x 15.3 mm, distance | | to first branch point: 20.2 mm, distance to esophagus: 4.3 mm. | | | | Left inferior pulmonary vein orifice diameter: 21.7 x 10 mm, distance | | to first branch point: 20.8 mm, distance to esophagus: 21.4 mm. | | | | CHEST | | Lungs, Pleura and Airways: No significant pulmonary abnormality. | | Subsegmental atelectasis/scarring in right middle lobe, lingular | | segment of left upper lobe and both lower lobes. No airway narrowing | | or obstruction. No pleural effusion or pneumothorax. | | Mediastinum: Cardiomegaly with enlarged left ventricle, left atrium and | | right atrium.. Left-sided aortic arch. Mild aortic atherosclerosis. | | The study is nondiagnostic for evaluation of coronary arteries. | | Enlarged pulmonary trunk measuring 34.5 mm. No evidence of pulmonary | | embolism in central pulmonary arteries. Small hiatal hernia. | | Lymph Nodes: No enlarged mediastinal lymph nodes. | | Upper Abdomen: No significant abnormality in the visualized upper | | abdomen. | | | | BODY WALL | | Soft Tissues: The soft tissues of the chest wall are unremarkable. | | Bones: No acute fracture or vertebral end plate destruction. No lytic | | or blastic lesion. Mild thoracic spondylosis. | | | | IMPRESSION: | | *Normal CT angiogram of the left atrium and pulmonary veins. No | | accessory veins identified. Pulmonary vein orifice measurements and | | distance to first branch points given above. | | *The posterior wall of the right inferior pulmonary vein abuts the | | esophagus. | | *Cardiomegaly with enlarged left ventricle, left atrium and right | | atrium. | | *Enlarged pulmonary trunk indicating pulmonary artery hypertension. | | *Small hiatal hernia. | | | | | | | | | | | | Signed by: Na Pennington, [place] | | Sign Date/Time: 03/16/2019 4:54 PM | + + + +---------+ + + | Performing | Address | City/State/Zipcode | Phone Number | | Organization | | | | + +---------+ + + | [facility] | | | | + +---------+ + + ECG 12 lead (03/06/2019 11:22 AM PST) + + + + + + | Component | Value | Ref Range | Performed | Pathologist | | | | | At | Signature | + + + + + + | VENTRICULAR | 68 | BPM | [facility] | | | RATE EKG | | | | | + + + + + + | ATRIAL RATE | 357 | BPM | [facility] | | [...] + + + | QRS AXIS | 69 | degrees | [facility] | | [...] | | | | | by ELVIN ORELLANA MD | | | | | | ([id number]) on 03/09/2019 | | | | | | 10:38:18 AM | | | | + + [...] Primary Atrial fibrillation | + + | Chest discomfort Other chest pain | + + | Sleep apnea, unspecified type | + + documented in this encounter
--- OUTSIDE RECORDS SUMMARY | ~2019-07-17 | XMS | Encounter Summary ---
Demographics + + + | Address | [address] | | | [place] [address] | + + + | Home Phone [...] [place] | | | | | [address] | | + + + + + | Beatrice Paulson | ECON | [address] | | | | | [place] | | | | | [address] | | + + + + + Care Team Providers + +------+ + | Care Optical Lab Technician Name | Role | Phone | + +------+ + | Parvez Vail MD | PCP | | + +------+ + Reason for Referral Diagnostic/Screening (Routine) + +--------+ + + + + | Status | Reason | Specialty | Diagnoses / | Referred By | Referred To | | | | | Procedures | Contact | Contact | + +--------+ + + + + | Pending | | Radiology | Diagnoses | [place], | [facility] | | Review | | | Persistent | Elvin | REGIONAL | | | | | atrial | MD Reji | MEDICAL | | | | | fibrillation | [address] | [address]ENTER [address] | | | | | (HCC) | [address] | [address] | | | | | Procedures | Drive, [address] | [place], [place] | | | | | CT Angio Lt | [place], | [address] | | | | | Atrium/Pulmo | [place] [address] | Phone: | | | | | [address] | Phone: | [phone] | | | | | Cont | [phone] | Fax: | | | | | | Fax: | [phone] | | | | | | [phone] | | + +--------+ + + + + Reason for Visit Diagnostic/Screening (Routine) + +--------+ + + + + | Status | Reason | Specialty | Diagnoses / | Referred By | Referred To | | | | | Procedures | Contact | Contact | + +--------+ + + + + | Pending | | Radiology | Diagnoses | [place], | [facility] | | Review | | | Persistent | Elvin | REGIONAL | | | | | atrial | MD Reji | MEDICAL | | | | | fibrillation | [address] | [address] | | | | | (HCC) | [address] | [address] | | | | | Procedures | Drive, [address] | [place], [place] | | | | | CT Angio Lt | [place], | [address] | | | | | Atrium/Pulmo | [place] [address] | Phone: | | | | | wes Gillis w | Phone: | [phone] | | | | | Cont | [phone] | Fax: | | | | | | Fax: | [phone] | | | | | | [phone] | | + +--------+ + + + + Encounter Details +--------+ + + + + | Date | Type | Department | Care Team | Description | +--------+ + + + + | 03/12/ | Hospital | [facility] | Elvin Jamil | Persistent atrial | | 2020 | Encounter | [facility] CT | MD Reji [address] | fibrillation (HCC) | | | | [address] | [facility], [facility] | | | | | [place], [place] | [place], [place] | | | | | [address] | [address] | | | | | [phone] | | | +--------+ + + + [...] [address] | | | | | | [facility] | | | | | | [place] | | | | | | [address] | | | | | | | | +--------+---------+ + + + documented as of this encounter Procedures + +--------+ + + + | Procedure Name | Priori | Date/Time | Associated Diagnosis | Comments | | | ty | | | | + +--------+ + + + | CT ANGIOGRAM LEFT | Routin | 03/12/2019 | Persistent atrial | Results for this | | A[facility] PULMONARY | e | 5:25 PM | fibrillation (HCC) | procedure are in the | | VEIN W CONTRAST | | PST | | results section. | + +--------+ + + + documented in this encounter Results CT Angio Lt Atrium/Pulmonary Vein w Cont [...] Signed by: Na Pennington, | | | Felicitaspender Sign Date/Time: 03/16/2019 4:54 PM | | [...] in this encounter Administered Medications + +--------+ +---------+------+------+ | Medication Order | MAR | Action | Dose | Rate | Site | | | Action | Date | | | | + +--------+ +---------+------+------+ | iohexol (OMNIPAQUE 350) 350 | Given | 03/12/19 | 100 mLs | | | | mg/mL injection 100 mL 100 mL, | | 20 5:25 | | | | | Intravenous, ONCE PRN, Other, | | PM PST | | | | | Starting [facility] 03/12/19 at 1725, For | | | | | | | 1 dose, Cat Scanner | | | | | | + +--------+ +---------+------+------+ +---+---+ | | | +---+---+ documented in this encounter"
--- OUTSIDE RECORDS SUMMARY | ~2019-07-17 | XMS | Encounter Summary ---
Demographics + + + | Address | [address] | | | [place] [address] | + + + | Home Phone | | + + + | Preferred Language | Unknown | + + + | Marital Status | | + + + | Protestant Affiliation | Unknown | + + + | Race | Unknown | + + + | Ethnic Group | Unknown | + + + Author + + + | Author | [facility] | | | and [place] | + + + | Organization | [facility] | | | and [place] | + + + | Address | Unknown | + + + | Phone | Unavailable | + + + Support + + + + + | Name | Relationship | Address | Phone | + + + + + | Veronica Anderson | ECON | [place] | | | | | [address] | | + + + + + | Beatrice Paulosn | ECON | [address] | | | | | [place] | | | | | [address] | | + + + + + Care Team Providers + +------+ + | Care Technical Operator Name | Role | Phone | [...] + + | 05/21/ | Telephone | [facility] | Pranav Villar DNP | Other | | 2020 | | VASCULAR SURGERY | [address] | | | | | [address] | [place], [place] | | | | | [place], [place] | [address] | | | | | [address] | | | | | | [phone] | | | +--------+ + + + [...] [place] | | | | | | [address] | | | | | | | | +--------+---------+ + + + documented as of this encounter Visit Diagnoses Not on filedocumented in this encounter"
--- OUTSIDE RECORDS SUMMARY | ~2019-07-17 | XMS | Encounter Summary ---
Demographics + + + | Address | [address] | | | [place] [address] | + + + | Home Phone [...] | Author | [facility] | | | and [place] | + + + | Organization | [facility] | | | and [place] | + + + | Address | Unknown | + + + | Phone | Unavailable | + + + Support + + + + + | Name | Relationship | Address | Phone | + + + + + | Veronica Anderson | ECON | [place] | | | | | [address] | | + + + + + | Beatrice Paulson | ECON | [address] | | | | | [place] | | | | | [address] | | + + + + + Care Team Providers + +------+ + | Care Office Clinician Name | Role | Phone | + +------+ + | Venkata Pettit MD | PCP | | + +------+ + Reason for Visit + + + | Reason | Comments | + + + | Back Pain | Low back pain | + + + Evaluate & Treat (Routine) +--------+ + + + + + | Status | Reason | Specialty | Diagnoses / | Referred By | Referred To | | | | | Procedures | Contact | Contact | +--------+ + + + + + | Closed | Specialty | Physical | Diagnoses | Carmella, | Stephan, | | | Services | Medicine and | Mechanical | Chan Tipton, | Olayinka Duncan MD | | | Required | Rehabilitatio | low back | PA-C [address] | | | n | pain | [address] | [address] | | | | | | [address] | [place] | | | | | | [place], | [address] Phone: | | | | | | [place] [address] | [phone] | | | | | | Phone: | Fax: | | | | | | [phone] | [phone] | | | | | | Fax: | | | | | | | [phone] | | +--------+ + + + + + Encounter Details +--------+---------+ + + + | Date | Type | Department | Care Team | Description | +--------+---------+ + + + | 07/18/ | Office | [facility] | Olayinka Rothman | Chronic bilateral | | 2016 | Visit | PHYSIATRY [address] | [address] | low back pain | | | | [address] | [address] [place], [place] | without sciatica | | | | [place], [place] | [address] | (Primary Dx); S/P | | | | [id number] | | lumbar fusion; DDD | | | | [phone] | | (degenerative disc | | | | | | disease), lumbar; | | | | | | Gait abnormality | +--------+---------+ + + + Social History [...] + + + | Blood Pressure | 136/76 | 07/19/2015 10:28 AM | | | | | PDT | | + + + + + | Pulse | 68 | 07/19/2015 10:28 AM | | | | | PDT [...] Weight | 122.5 kg (270 lb) | 07/19/2015 10:28 AM | | | | | PDT | | + + + + + | Height | 172.7 cm (5' 8") | 07/19/2015 10:28 AM | | | | | PDT | | + + + + + | Body Mass Index | 41.05 | 07/19/2015 10:28 AM | | | | | PDT | | + + + + + documented in this encounter Progress Notes Olayinka Rothman MD - 07/19/2015 10:28 AM PDT Olayinka Rothman MD [address] [facility], [address] [place] [address] FAX: PHYSICAL MEDICINE AND REHABILITATION H&P CHIEF COMPLAINT: Chief Complaint Patient presents with Back Pain Low back pain HISTORY OF PRESENT ILLNESS: The patient is a 74 y.o. female being seen today at the [facility] t of Chan Weir PA-C with the complaint of low back pain that has been going on for yea rs now. The patient has a fairly significant history of low back pain which includes prior l umbar surgery. The patient states that the surgeries were helpful with the radicular pain sh amparo had in the past but has left her with a constant ache in the lower back. The symptoms hav e been unchanged. Most recently when she saw Chan it was recommended that she try bilatera l L5-S1 facet injections and those injections were performed by me on 05/02/2015. The patient reports that after the injections were performed as she was walking out of the hospital she felt significant relief but unfortunately that only lasted for approximately 2 days. The tammie holland is here today to find out if there are any other procedures that can be offered. She rates the pain as mild to moderate. The symptoms are daily. She describes the pain as aching. The patient does report numbness in the toes which has been a chronic issue. She does repo rt weakness in the legs, hips and back and has to walk with a walker. The patient does not report any change in bowel or bladder function or saddle anesthesia re cently. Her symptoms improve with rest, lying down and sitting. Her symptoms worsen with standing and prolonged walking. She has tried PT, medications, injections and surgery. PAST MEDICAL HISTORY: Past Medical History Diagnosis Date Sacroiliitis (HCC) BACK PAIN, LUMBAR Spinal stenosis Trochanteric bursitis Degenerative disc disease Obesity Hypertension Hypercholesterolemia Hx of spinal fusion Myofascial pain syndrome Paresthesia Carpal tunnel syndrome Facet arthritis of lumbar region 05/02/2015 Chronic bilateral low back pain without sciatica 07/20/2015 PAST SURGICAL HISTORY: Past Surgical History Procedure Laterality Date Gallbladder surgery 12/18/2001 Lumbar spinal stenosis 05/24/2009 Neck surgery 10/10/[address] Ribera Cataract surgery 10/29/2011(left eye, Right eye 01/07/12 Lumbar fusion 01/13/13 L1-L5 Lumbar Fusion Laser eye surgery Bilateral 04/06/13 Secondary Cataracts Lasered Total knee arthroplasty Left 06/28/[address] Will at [facility] Squamous cell carcinoma (left jawline) removed [...] of Onset Diabetes Maternal Grandmother Arthritis Mother REVIEW OF SYSTEMS: GENERALLY: No fever, no night sweats, no anemia, no fatigue, no recent profound weight ch anges. EYES: No eye problems, no use of corrective lenses, no eye injury, no double vision, no bl indness. EARS, NOSE, AND THROAT: No changes in taste or smell, no hearing difficulty, no ringing in the ears, no ear drainage, no dizziness, no voice changes, no difficulty swallowing, no sig nificant snoring, no sleep apnea, no sinus problems, no major dental work. NEUROLOGICALLY: Please see the review of systems discussed above in the history of present illness. In addition, the patient has pain in the back. PSYCHIATRIC: No depression, no sleep disorders, no anxiety, no bipolar disorder, no psycho tic episodes. CARDIOVASCULAR: No heart attacks, no heart murmur, no heart fluttering, no chest pain, + a nkle swelling. LUNG DISEASE: No shortness of breath, no cough, no tuberculosis, no bloody cough, no asth ma, no emphysema/COPD. GASTROINTESTINAL: No bowel disease, no nausea or vomiting, no rectal bleeding, no constipa tion, no stool incontinence, no liver disease, no gallbladder disease, no abdominal pain, no ulcers. KIDNEY DISEASE: + urinary frequency, no painful or difficult urination, no incontinence. ENDOCRINE: No diabetes, no thyroid disease, no osteopenia or osteoporosis, no breast drain age. SKIN: No breast lumps, no skin changes, no rashes, no itches. HEMATOLOGIC/LYMPHATIC: No enlarged lymph nodes, no easy or unusual bleeding, no personal h istory of cancer. RHEUMATOLOGIC: + joint arthritis, no rheumatoid arthritis. PHYSICAL EXAMINATION: Blood pressure 136/76, pulse 68, height 1.727 m (5' 8"), weight 122.471 kg (270 lb). Body m ass index is 41.06 kg/(m^2). GENERAL: The patient is well developed and well nourished. She does not appear uncomfortab le when seated. HEENT: HEAD/FACE: EYES: Normocephalic and atraumatic. There are no areas of recent trauma. Normal sclerae without icterus. SKIN Limited skin exam shows no significant rashes or lesions. There are scars in the lumb ar region. CHEST: The patient is in no acute respiratory distress with unlabored respirations. HEART: There is lower extremity edema. ABDOMEN: The patient is overweight. NEUROLOGIC: The patient is awake, alert, and oriented to time, place, person. She follows simple and complex commands. Her speech is fluent. She comprehends speech well. She has no apparent deficits with short or termite treater memory. She has appropriate fund of knowledge Cranial nerves 2-12 appear grossly intact. Sensory exam does show diminished sensation to light touch in the lower extremities. REFLEX: RIGHT LEFT PATELLAR 2-3+ 2-3+ ACHILLES 2+ 2+ PLANTAR Downgoing Downgoing MUSCULOSKELETAL There is no major palpable deformity of the spine. Straight leg raise and slump-sit are negative. Elvin's maneuver and impingement testing were negative for any groin pain. There was no tenderness to palpation over the greater tr ochanters or sacral sulci. The patient localized the majority of the pain to the lower lumb ar region near her surgery. Lumbar facet loading was negative. Strength testing showed 5/5 strength throughout the lower extremities with exception of hip abduction weakness bilatera lly and dorsiflexion weakness, more pronounced on the right. The patient was not able to he el and toe walk without difficulty. There was no redness, effusion, warmth or joint line te nderness in the knees or ankles. Her gait was very abnormal and would best be described as waddling or a bilateral Trendelenburg gait. RADIOGRAPHIC REVIEW: The patient's imaging was reviewed in detail with the patient today during the visit. The MRI from 02/10/16 shows the stable fusion from L1-L5 although there is suggestion of possibl e failure to fuse at L4-L5. Not mentioned in the report but quite obvious on review of the images is severe atrophy and fatty replacement of the paraspinal musculature at the lower harley mbar levels, especially near L5 and S1. There is still some continued foraminal stenosis. IMPRESSION: Encounter Diagnoses Name Primary? Chronic bilateral low back pain without sciatica Yes S/P lumbar fusion DDD (degenerative disc disease), lumbar Gait abnormality PLAN: 1. We discussed that the pain that stays in the low back and worsens with prolonged standin g and then is relieved with sitting is most likely coming from muscle fatigue. This fits wi th the fairly severe atrophy of the paraspinal musculature seen on the most recent MRI. We d id discuss compensatory techniques such as using a walker, crutches or cane and also using a step stool to rest her foot on while standing at a counter or sink and switching back and f orth between feet. This can shift the center of gravity and take a little strain off the mu scles of the low back. 2. The patient also has weakness with hip abduction and dorsiflexion which I informed her i s likely the result of nerve damage also. Using a walker, bilateral canes/walking sticks or crutches can help normalize the gait somewhat. 3. The use of a back brace was discussed. She was advised that this is something that could be used when she knows she is going to be more physically active but if she wears it consta ntly it can lead to additional weakness of the muscles. 4. Physical therapy was discussed in detail. She was advised that continued physical therap y is a good thing and I would encourage her to continue doing this as long as she feels it i s helping. The patient was advised that I would personally call her physical therapist and discuss her case in detail and that has been done. 5. I did not feel that injections were likely to provide much relief and I would not offer additional injections at this time. ELECTRONICALLY EDITED AND SIGNED BY: Olayinka Rothman MD, 07/20/2015 Scribed by: Fanny Sahni MA for Dr. Olayinka Rothman on 07/19/2015 documented in this encounter Plan of Treatment +--------+---------+ + + + | Date | Type | Specialty | Care Team | Description | +--------+---------+ + + + | 10/06/ | Office | Cardiology | Elvin Jamil | | | 2019 | Visit | | MD [address] | | | | | | [facility] | | | | | | [place] | | | | | | [phone] | | | | | | | | +--------+---------+ + + + documented as of this encounter Visit Diagnoses + + | Diagnosis | + + | Chronic bilateral low back pain without sciatica - Primary | + + | S/P lumbar fusion Arthrodesis status | + + | DDD (degenerative disc disease), lumbar Degeneration of lumbar or lumbosacral | | intervertebral disc | + + | Gait abnormality Abnormality of gait | + + documented in this encounter
--- OUTSIDE RECORDS SUMMARY | ~2019-07-17 | XMS | Encounter Summary ---
Demographics + + + | Address | [address] | | | [place] [address] | + + + | Home Phone [...] | Author | [facility] | | | and [place] | + + + | Organization | [facility] | | | and [place] | + + + | Address | Unknown | + + + | Phone | Unavailable | + + + Support + + + + + | Name | Relationship | Address | Phone | + + + + + | Veronica Anderson | ECON | [place] | | | | | [address] | | + + + + + | Beatrice Paulson | ECON | [address] | | | | | [place] | | | | | [address] | | + + + + + Care Team Providers + +------+ + | Care Cognos Bi Administrator Name | Role | Phone | + [...] + + | Closed | Specialty | Vascular | Diagnoses | Shalini, | Kyle Lopez, | | | Services | Surgery | Hematoma of | MD Dain | [address] | | | Required | | left thigh, | [address] | [address] | | | | | subsequent | Bl[address] | [place] [address] | | | | | encounter | [place], [place] | [place] | | | | | | [address] | [address] | | | | | | Phone: | Phone: | | | | | | [phone] | [phone] | | | | | | Fax: | Fax: | | | | | | [phone] | [phone] | +--------+ + + + + + [...] | | | | | | sm ([facility]) | | | | | | | Essential | | | | | | | hypertension | | | | | | | Chronic | | | | | | | atrial | | | | | | | fibrillation | | | | | | | ([facility]) | | | | | | | Decreased | | | | | | | hemoglobin | | | | | | | Pseudoaneury | | | | | | | sm following | | | | | | | procedure | | | | | | | ([facility]) | | | | | [...] + + | 04/03/ | Hospital | [facility] | Reji Coates | Bleeding (Primary | | 2019 - | Encounter | [facility] | MD [address] | Dx); Pseudoaneurysm | | | | [address] | [place], | ([facility]); Decreased | | 04/10/ | | [place], [place] | [place] [address] | hemoglobin; Chronic | | 2019 | | [address] | [phone] | atrial fibrillation | | | | [phone] | | ([facility]); Essential | | | | | Jordan Bhakta MD | hypertension; Acute | | | | | [address] | blood loss anemia; | | | | | [place] [address] | Hematoma of left | | | | | [phone] | thigh, initial | | | | | | encounter; | | | | | Amanda Villatoro MD | Pseudoaneurysm | | | | | [address] | following procedure | | | | | [place] [address] | ([facility]); Paroxysmal | | | | | [phone] | atrial fibrillation | | | | | | ([facility]); Hematoma of | | | | | Dain Loya MD | left thigh, | | | | | [address] | subsequent | | | | | [place] [address] | encounter; | | | | | [phone] | Persistent atrial | | | | | | fibrillation (HCC) | | | | | Richard Buchanan MD | | | | | | [address] | | | | | | [place] [address] | | | | | | [phone] | | | | | | | [...] Buchanan MD - 04/10/2019 8:50 AM PST [facility] Service: Hospitalist Discharge Summary Date of [...] to me appropriately. DATA Recent Labs Lab 04/10/1951804/09/198 04/08/19420 WBC 7.97 7.40 9.76 HGB 9.5* 7.3* 7.3* HCT 30.9* 23.7* 22.9* PLT 301 316 275 MONOPCT 7.80 8.40 9.40 Recent Labs Lab 04/10/1951804/09/198 04/08/19 0421 NA 137 135 137 K 4.3 4.4 [...] 49* 48* Radiology No results found. Disposition: long term Condition: Fair Code Status: Full Code Discharge Procedure Orders Ambulatory Referral to [facility] Vascular Surgery Referral Priority: Routine Referral Type: Evaluate & Treat Referral Reason: Specialty Services Required Referred to Provider: KYLE LOPEZ Requested Specialty: Vascular Surgery Number of Visits Requested: 1 Follow up: Elvin Jamil MD [address] [facility] [id number] On 05/04/2019 Parvez Vail MD [address] [facility] [address] In 1 week [facility] [address] [facility] [address] Breana Mullen DO [address] [facility] [address] In 2 weeks Discharge Medications New Medications [...] Colbert MD - 04/09/2019 3:16 PM PST [facility] Service: Hospitalist Discharge Summary Date of [...] MONOPCT 8.40 9.40 8.90 Recent Labs Lab 04/09/1941704/08/1942004/07/19 0702 NA 135 137 136 K 4.4 4.3 4.0 CL 102 103 104 CO2 32 30 29 BUN 14 16 12 CALCIUM 8.6 8.7 8.1* ALKPHOS 91 84 87 ALT 20 17 22 AST 27 25 29 Phosphorus: Lab Results Component Value Date PHOS 4.0 04/09/2019 No results for input(s): LABALBU in the last 168 hours. Recent Labs Lab 04/07/19 0702 04/06/19 04104/05/19 0218 MG 2.3 1.9 1.7 No results for input(s): AMYLASE in the last 168 hours. No results for input(s): PHART, PO2ART, ACW8NWD, G1CYDLYX, BEART in the last 168 hours. Recent Labs Lab 04/09/1941704/08/1942004/07/19 0534 INR 1.2 1.1 1.1 PTT 33* 49* 48* No results for input(s): TSH in the last 168 hours. Invalid input(s): T3FREE, FREET4 No results for input(s): TROPONINT in the last 168 hours. Invalid input(s): CKTOTAL, TROPONINI, CKMBINDEX Radiology No results found. Disposition: long term Condition: Fair Code Status: Full Code No discharge procedures on file. Follow up: Elvin Jamil MD [address] [place] [phone] On 05/04/2019 Parvez Vail MD [address] [facility] [address] In 1 week [facility] [address] [facility] [address] Discharge Medications New Medications Details enoxaparin 120 [...] 2.5 mg Nebulization Once PRN Breana Mullen, DO amiodarone (PACERONE) tablet 200 mg 200 mg Oral Daily Elvin Jamil MD atenolol (TENORMIN) tablet 50 mg 50 mg Oral Daily Breana Mullen DO 50 mg at 0831 bisacodyl (DULCOLAX) suppository 10 mg 10 mg Rectal Daily PRN Breana Mullen, DO 10 mg at 04/06/19 0049 cholecalciferol (VITAMIN D-3) tablet 4,000 Units 4,000 Units Oral Daily Breana lakhani, DO 4,000 Units at 04/09/19 0831 cyanocobalamin [...] 1 mg/kg Subcutaneous 2 times per d ay Dain Loya MD 120 mg at 04/09/191940 HYDROcodone-acetaminophen (NORCO) 5-325 mg per tablet 1 tablet 1 tablet Oral Q6H PRN Elisa Mullen DO 1 tablet at 04/09/19 194 HYDROmorphone (DILAUDID) injection 0.5-1 mg 0.5-1 mg Intravenous Q2H PRN Breana schaeffer, DO 1 mg at 04/08/19 1058 lidocaine (XYLOCAINE) 4% topical solution 10 mL 10 mL Topical Once per day on Sat Breana Mullen DO 10 mL at 04/06/19 1156 ondansetron (ZOFRAN) injection 4 mg 4 mg Intravenous Once PRN Breana Mullen DO ondansetron (ZOFRAN) injection 4 mg 4 [...] Nightly Breana Mullen, DO 20 mg at 04/09/19 194 warfarin per pharmacy Other Pharmacy Consult Dain [...] ul. Chart check complete. Tatiana El RN Dain Colbert MD - 3:26 PM PSTPatient's discharge was delayed because [facility] did not have [facility] today patient will be discharged to [facility] if she is medically stable. Received a call from Dr. Peters who advised to pack RBC transfusion to get a hemoglobin c lose to 9. roctShekhar ahle, [facility] - 04/09/2019 2:45 PM PSTFormatting of this [...] follow and modify therapy as indicated. Val Holliday, Isael, BCPS 04/09/19 2:43 PM Iam Bustillo ARNP - 04/09/2019 7:48 AM PSTFormatting of this [...] fib post ablati on s/p DCCV with jewish of SR. Patient awake and alert seated [...] 1 mg/kg Subcutaneous 2 times per d ay Dain Loya MD 120 mg at 04/09/19 0830 HYDROcodone-acetaminophen (NORCO) 5-325 mg per tablet 1 tablet 1 tablet Oral Q6H PRN Elisa Mullen DO 1 tablet at 04/08/19 2223 HYDROmorphone (DILAUDID) injection 0.5-1 mg 0.5-1 mg Intravenous Q2H PRN Breana schaeffer, DO 1 mg at 04/08/19 1058 lidocaine (XYLOCAINE) 4% topical solution 10 mL 10 mL Topical Once per day on Sat Breana Mullen DO 10 mL at 04/06/19 1156 ondansetron (ZOFRAN) injection 4 mg 4 mg Intravenous Once PRN Breana Mullen DO ondansetron (ZOFRAN) injection 4 mg 4 [...] Nightly Breana Mullen DO 20 mg at 04/08/19 202 warfarin per pharmacy Other Pharmacy Consult Dain [...] with the findings and plan of the [facility] practice provider/house staff with [...] 7) disposition - pending improvement in medical issuesTatiana El RN - 04/09/2019 5:31 A M PSTVSS throughout shift. Pt rested well throughout shift. Wound vac remains on, pt medic ated for LLE pain X1. Hourly rounding uneventful. Chart check complete. Tatiana El RN Dain Colbert MD - 2:17 PM PST [facility] Service: Hospitalist Progress Note Hospital Day: [...] Grossly Intact DATA Recent Labs Lab 04/08/19 0421 04/07/19 0601 04/06/19 0413 WBC 9.76 12.07* 9.61 [...] hours. No results for input(s): PHART, PO2ART, LNQ7ZUI, I3QGLFPM, BEART in the last 168 hours. Recent [...] LEFT (04/03/2019); LOWER EXTREMITY ANY JOINT (03/04/2009); [place] OCEDURE: Thin section axial images through the [...] Loya MD 04/08/2019 2:17 PM Iris Leon, [facility] - 04/08/2019 1:07 PM PSTFormatting of this [...] modify therapy as indicated. Kizzy Thayer, PharmD, [facility] 04/08/19 1:02 PM Wen Barragan RN - 04/08/2019 11:55 AM PST [facility] Service: Wound Care NPWT Note Hospital [...] Kumar DO - 04/08/2019 10:27 AM PST [facility] Progress Note Primary Care Physician: Parvez [...] Oral BID Breana Mullen DO Stopped at 04/07/192153 heparin in dextrose 100 units/mL infusion 12 Units/kg/hr ([place]) Intravenous Continuou s Breana Mullen DO 10.2 mL/hr at 04/07/192033 16 Units/kg/hr at 04/07/192033 HYDROcodone-acetaminophen (NORCO) 5-325 mg per tablet 1 tablet 1 tablet Oral Q6H PRN Elisa Mullen, DO 1 tablet at 04/08/19 0551 HYDROmorphone [...] Breana Mullen, DO 20 mg at 04/07/19 2035 warfarin (COUMADIN) tablet 5 mg 5 mg Oral Daily - Warfarin Hany Nugent [facility] 5 mg a vida 04/07/19 1732 warfarin per pharmacy Other Pharmacy [...] 04/07 with successful and thus far maintained jewish of sinus rhythm - converted to oral [...] with the findings and plan of the [facility] practice provider/house staff with [...] - pending improvement in medical issuesBreana Mullen DO - 04/07/2019 8:00 PM PST [facility] Progress Note Primary Care Physician: Parvez [...] Patient has been stable on home regimen T[employer] FORMS Heparin infusion: therapeutic aPTT in the past [...] as indicated. Thank You, Aubree Rueda PharmD, BCPS 04/07/2019 3:22 PM Dain Elaine MD - 04/07/2019 12:35 PM PSTFormatting of this note might be different from th amparo original. [facility] Service: Hospitalist Progress Note Hospital Day: [...] Continuous Infusions heparin infusion 16 Units/kg/hr (04/07/19 0705) OBJECTIVE Vital Signs: BP 95/45 | Pulse [...] Lab 04/07/19 0601 04/06/19 0413 04/05/19 1155 04/05/19 0218 WBC 12.07* 9.61 11.92* < > 12.93* HGB 7.7* 7.7* 8.2* < > 7.9* HCT 24.5* 24.1* 25.3* < > 24.3* PLT 264 231 222 < > 221 MONOPCT 8.90 9.50 -- -- 9.40 < > = values in this interval not displayed. Recent Labs Lab 04/07/19 0702 04/06/19 0413 04/05/19 0218 NA 136 139 137 K 4.0 4.0 4.0 CL 104 105 104 CO2 29 28 26 BUN 12 14 17 CALCIUM 8.1* 8.6 8.6 ALKPHOS 87 91 82 ALT 22 15 12 AST 29 37 38 Phosphorus: Lab Results Component Value Date PHOS 2.7 04/07/2019 No results for input(s): LABALBU in the last 168 hours. Recent Labs Lab 04/07/19 0702 04/06/19 0413 04/05/198 MG 2.3 1.9 1.7 No results for input(s): AMYLASE in the last 168 hours. No results for input(s): PHART, PO2ART, KVZ2NFO, D9MLWFZJ, BEART in the last 168 hours. Recent Labs Lab 04/07/19 0534 04/06/19 2103 04/06/19 1515 04/06/19 0413 04/04/19 0618 INR 1.1 [...] LEFT (04/03/2019); LOWER EXTREMITY ANY JOINT (03/04/2009); [place] OCEDURE: Thin section axial images through the [...] note might be different from the ban cabezas. [facility] Service: Wound Care NPWT Note Hospital [...] Rasmussen RN, CWON 04/06/2019 2:10 PM Charly Tay PT, DPT - 04/06/2019 2:00 PM PSTFormatting of this note might be different from the juan newman 04/06/19 1400 PT Visit Summary PT Visit Type Missed Visit (patient unavailable) Next Visit Information 04/06, Vascular surgery PT Visit Summary Wound care tx. in process. Will attempt to return later as able per censu s demands Danilo Colbert MD - 04/06/2019 1:40 PM PST . [facility] Service: Hospitalist Progress Note Hospital Day: LOS: 3 days SUBJECTIVE Patient Summary: Events Overnight: Patient reports left thigh pain. Denies any chest pain shortness of breath nausea vomiting. Overnight went into A. fib. Feels constipated. Scheduled Medications atenolol 50 mg Oral Daily cholecalciferol 4,000 Units Oral Daily cyanocobalamin 500 mcg Oral Daily docusate-senna 2 tablet Oral BID mineral iqp-flfwcbkm-hbubs (HOG) enema Rectal Once lidocaine 10 mL [...] Neuro Grossly Intact DATA Recent Labs Lab 04/06/19 0413 04/05/19 1155 04/05/19 0828 04/05/19 0218 04/03/19 1902 WBC 9.61 11.92* 11.60* 12.93* < > 12.16* HGB 7.7* 8.2* 7.6* 7.9* < > 8.3* HCT 24.1* 25.3* 23.8* 24.3* < > 25.4* PLT 231 222 211 221 < > 232 MONOPCT 9.50 -- -- 9.40 -- 10.40 < > = values in this interval not displayed. Recent Labs Lab 04/06/19 0413 04/05/19 0218 04/04/19 1152 NA 139 137 138 K 4.0 4.0 4.4 CL 105 104 105 CO2 28 26 26 BUN 14 17 19 CALCIUM 8.6 8.6 8.3* ALKPHOS 91 82 86 ALT 15 12 12 AST 37 38 25 Phosphorus: Lab Results Component Value Date PHOS 2.7 04/06/2019 No results for input(s): LABALBU in the last 168 hours. Recent Labs Lab 04/06/19 0413 04/05/198 04/04/19 1152 MG 1.9 1.7 1.9 No results for input(s): AMYLASE in the last 168 hours. No results for input(s): PHART, PO2ART, PXN4AQQ, D2BXMYWX, BEART in the last 168 hours. Recent [...] LEFT (04/03/2019); LOWER EXTREMITY ANY JOINT (03/04/2009); [place] OCEDURE: Thin section axial images through the [...] Code Dain Loya MD 04/06/2019 1:40 PM [facility] - 04/06/2019 11:41 AM PSTFormatting of this note might be different from the origin al. Pharmacy Warfarin Monitoring: Kassie Bear female 78 y.o. Pharmacy consulted to [...] therapy as indication. Kizzy Thayer, PharmD, [facility] 04/06/19 11:41 AM Breana Kumar I, DO - 04/06/2019 11:37 AM PST . [facility] Progress Note Primary Care Physician: Parvez [...] Sukhi Philip RN - 04/05/2019 6:50 PM PSTFoley catheter inserted for recurrent urinary ret ention, [...] this note might be different from t he original. [facility] Progress Note Primary Care Physician: Parvez [...] by: Breana Mullen DO, 04/05/2019 4:18 PM Hany Draper R PH - 04/05/2019 2:27 PM PST Pharmacy Warfarin Monitoring: Kassie Bear female 78 y.o. Pharmacy consulted to [...] Colbert MD - 04/05/2019 12:54 PM PST [facility] Service: Hospitalist Progress Note Hospital Day: [...] hours. No results for input(s): PHART, PO2ART, SHD3POE, A5EGBCMY, BEART in the last 168 hours. Recent [...] LEFT (04/03/2019); LOWER EXTREMITY ANY JOINT (03/04/2009); [place] OCEDURE: Thin section axial images through the [...] Dain Loya MD 04/05/2019 12:54 PM Sammie Petit, [place] - 04/05/2019 1:52 AM PSTPatient was found [...] void. BLE pulses palpable. Josse Hinton RN ain Andrews i, MD - 04/04/2019 3:28 PM PSTFormatting of this note might be different from the or iginal. [facility] Service: Hospitalist Progress Note Hospital Day: [...] hours. No results for input(s): PHART, PO2ART, TWH0FKA, G8EKYWGI, BEART in the last 168 hours. Recent [...] LEFT (04/03/2019); LOWER EXTREMITY ANY JOINT (03/04/2009); [place] OCEDURE: Thin section axial images through the [...] Code Dain Loya MD 04/04/2019 3:29 PM ary Grace Ibarra RN - 04/04/2019 1:10 PM PSTPharmacy spoke [...] 2419 mGy radiation 12.9 min fluoro time osemary Carrero RN - 04/04/2019 2:12 AM PSTPatient admitted [...] Will continue to monitor. Rosemary Carrero RN roctoraVl [facility] - 04/03/2019 8:25 PM PSTClinical Pharmacy Note: [...] [address] | | | | | | [facility] | | | | | | [place] | | | | | | [id number] | | | | | | | [...] left | Ordered: 04/09/2019 | | to [facility] Vascular | Referral | e | thigh, [...] | + +--------+ + + + | ENDARTERECTOMY | | 04/04/2019 | Bleeding | | | FEMORAL | | 7:34 AM | Pseudoaneurysm (HCC) | | | | | PST | Decreased | | | | | | hemoglobin Chronic | | | | | | atrial fibrillation | | | | | | (HCC) Essential | | | | | | hypertension | | + +--------+ + + + [...] | | | | | performed at [facility] | | | | | | [facility], [place] | | | | | | [address] | | | | + + + + + + + + | Specimen | + + | Blood | + + + + + + + | Performing | Address | City/State/Zipcode | Phone Number | | Organization | | | | + + + + + | [facility] | [address] | [place] [address] | [phone] | + + + + + Phosphorus (04/10/2019 5:19 AM PST) + + + + + + | Component | Value | Ref Range | Performed | Pathologist | | | | | At | Signature | + + + + + + | Phosphorus | 3.6Comment: Testing | 2.3 - 4.8 mg/dL | [facility] | | | | performed at [facility], [address] | | LABORATORY | | | | [address], | | | | | | [place] [address] | | | | + + + + + + + + | Specimen | + + | Blood | + + + + + + + | Performing | Address | City/State/Zipcode | Phone Number | | Organization | | | | + + + + + | [facility] | [address] | [place] [address] | [phone] | + + + + + Comprehensive [...] 41 | 10 - 65 U/L | [facility] | | | | | | LABORATORY | | + + + + + + | Estimated | >60Comment: GFR <60: | >60 | [facility] | | | GFR | CHRONIC [...] | | | | | performed at [facility], [address] | | | | | | [facility], | | | | | | [place] [address] | | | | + + + + + + + + | Specimen | + + | Blood | + + + + + + + | Performing | Address | City/State/Zipcode | Phone Number | | Organization | | | | + + + + + | [facility] | [address] | [place] [address] | [phone] | + + + + + CBC with Differential (04/10/2019 5:19 AM PST) + + + + + + | Component | Value | Ref Range | Performed | Pathologist | | | | | At | Signature | + + + + + + | WBC | 7.97 | 3.80 - 11.00 | [facility] | [...] 0.02Comment: Testing | 0.00 - 0.10 | [facility] | | | Absolute | performed at [facility], [address] | [address] | LABORATORY | | | | [address] [place], | | | | | | [place] [address] | | | | + + + + + + + + | Specimen | + + | Blood | + + + + + + + | Performing | Address | City/State/Zipcode | Phone Number | | Organization | | | | + + + + + | [facility] | [address] | [place] [address] | [phone] | + + + + + Red [...] BANK | Testing performed at | | [facility] | | | COMMENT | [facility];[address] | | LABORATORY | | | | [place] [address] | | | | + + + + + + + + | Specimen | + + | | + + + + + + + | Performing | Address | City/State/Zipcode | Phone Number | | Organization | | | | + + + + + | [facility] | [address] | [place] [address] | [phone] | + + + + + Type [...] + + + | BB BAND | [id number] | | [facility] | | | | | | LABORATORY | | + + + + + + | BB BAND | Testing performed at | | [facility] | | | | [place];[address] | | LABORATORY | | | | [address];[place] [address] | | | | + + + + + + | UNIT # | [id number] | | [facility] | | | | [...] + + + | UNIT # | [id number] | | [facility] | | | | [...] + + + + + | [facility] | [address] | [place] [address] | [phone] | + + + + + Protime INR (04/09/2019 4:18 AM PST) + + + + + + | Component | Value | Ref Range | Performed | Pathologist | | | | | At | Signature | + + + + + + | INR | 1.2Comment: REFERENCE | | [facility] | | | | RANGE:0.9 - [...] | | | | | performed at [facility];[address] | | | | | | [facility];[place] | | | | | | [address] | | | | + + + + + + + + | Specimen | + + | Blood | + + + + + + + | Performing | Address | City/State/Zipcode | Phone Number | | Organization | | | | + + + + + | [facility] | [address] | [place] [address] | [phone] | + + + + + Phosphorus (04/09/2019 4:18 AM PST) + + + + + + | Component | Value | Ref Range | Performed | Pathologist | | | | | At | Signature | + + + + + + | Phosphorus | 4.0Comment: Testing | 2.3 - 4.8 mg/dL | [facility] | | | | performed at [facility];[address] | | LABORATORY | | | | [address];[place] | | | | | | [address] | | | | + + + + + + + + | Specimen | + + | Blood | + + + + + + + | Performing | Address | City/State/Zipcode | Phone Number | | Organization | | | | + + + + + | [facility] | [address] | [place] [address] | [phone] | + + + + + Comprehensive [...] | | | | | performed at [facility];[address] | | | | | | [address];[place] | | | | | | [address] | | | | + + + + + + + + | Specimen | + + | Blood | + + + + + + + | Performing | Address | City/State/Zipcode | Phone Number | | Organization | | | | + + + + + | [facility] | [address] | [place] [address] | [phone] | + + + + + CBC [...] | | | Absolute | performed at [facility];[address] | [address] | LABORATORY | | | | [address];[place] | | | | | | [address] | | | | + + + + + + + + | Specimen | + + | Blood | + + + + + + + | Performing | Address | City/State/Zipcode | Phone Number | | Organization | | | | + + + + + | [facility] | [address] | [place] [address] | [phone] | + + + + + PTT (04/09/2019 4:18 AM PST) + + + + + + | Component | Value | Ref Range | Performed | Pathologist | | | | | At | Signature | + + + + + + | PTT | 33 (H)Comment: Testing | 23 - 32 seconds | [facility] | | | | performed at [facility];[address] | | LABORATORY | | | | [address];[place], [place] | | | | | | [address] | | | | + + + + + + + + | Specimen | + + | Blood | + + + + + + + | Performing | Address | City/State/Zipcode | Phone Number | | Organization | | | | + + + + + | [facility] | [address] | [place] [address] | [phone] | + + + + + Protime [...] | | | | | performed at [facility] | | | | | | [address];[place], [place] | | | | | | [address] | | | | + + + + + + + + | Specimen | + + | Blood | + + + + + + + | Performing | Address | City/State/Zipcode | Phone Number | | Organization | | | | + + + + + | [facility] | [address] | [place] [address] | [phone] | + + + + + Phosphorus (04/08/2019 4:21 AM PST) + + + + + + | Component | Value | Ref Range | Performed | Pathologist | | | | | At | Signature | + + + + + + | Phosphorus | 3.5Comment: Testing | 2.3 - 4.8 mg/dL | [facility] | | | | performed at [facility];[address] | | LABORATORY | | | | [address];[place] | | | | | | [address] | | | | + + + + + + + + | Specimen | + + | Blood | + + + + + + + | Performing | Address | City/State/Zipcode | Phone Number | | Organization | | | | + + + + + | [facility] | [address] | [place] [address] | [phone] | + + + + + Comprehensive [...] 17 | 10 - 65 U/L | [facility] | | | | | | LABORATORY | | + + + + + + | Estimated | >60Comment: GFR <60: | >60 | [facility] | | | GFR | CHRONIC KIDNEY [...] | | | | | performed at [facility];[address] | | | | | | [facility];[place], [place] | | | | | | [address] | | | | + + + + + + + + | Specimen | + + | Blood | + + + + + + + | Performing | Address | City/State/Zipcode | Phone Number | | Organization | | | | + + + + + | [facility] | [address] | [place] [address] | [phone] | + + + + + CBC [...] | | | Absolute | performed at [facility];[address] | [address] | LABORATORY | | | | [address];[place] | | | | | | [address] | | | | + + + + + + + + | Specimen | + + | Blood | + + + + + + + | Performing | Address | City/State/Zipcode | Phone Number | | Organization | | | | + + + + + | [facility] | [address] | [place] [address] | [phone] | + + + + + PTT (04/08/2019 4:21 AM PST) + + + + + + | Component | Value | Ref Range | Performed | Pathologist | | | | | At | Signature | + + + + + + | PTT | 49 (H)Comment: Testing | 23 - 32 seconds | [facility] | | | | performed at [facility];[address] | | LABORATORY | | | | [address];[place] | | | | | | [address] | | | | + + + + + + + + | Specimen | + + | Blood | + + + + + + + | Performing | Address | City/State/Zipcode | Phone Number | | Organization | | | | + + + + + | [facility] | [address] | [place] [address] | [phone] | + + + + + ECG [...] | | | | | ONLY, -COMPUTER (500), | | | | | | assignment editor Dion Bueno | | | | [...] Testing | 2.3 - 4.8 mg/dL | [facility] | | | | performed at [facility], [address] | | LABORATORY | | | | [address], | | | | | | [place] [address] | | | | + + + + + + + + | Specimen | + + | Blood | + + + + + + + | Performing | Address | City/State/Zipcode | Phone Number | | Organization | | | | + + + + + | [facility] | [address] | [place] [address] | [phone] | + + + + + Comprehensive [...] >60Comment: GFR <60: | >60 | [facility] | | | GFR | CHRONIC [...] | | | | | performed at [facility], [address] | | | | | | [facility], | | | | | | [place] [address] | | | | + + + + + + + + | Specimen | + + | Blood | + + + + + + + | Performing | Address | City/State/Zipcode | Phone Number | | Organization | | | | + + + + + | [facility] | [address] | [place] [address] | [phone] | + + + + + Magnesium (04/07/2019 7:02 AM PST) + + + + + + | Component | Value | Ref Range | Performed | Pathologist | | | | | At | Signature | + + + + + + | Magnesium | 2.3Comment: Testing | 1.7 - 2.4 mg/dL | [facility] | | | | performed at [facility], [address] | | LABORATORY | | | | [address], | | | | | | [place] [address] | | | | + + + + + + + + | Specimen | + + | Blood | + + + + + + + | Performing | Address | City/State/Zipcode | Phone Number | | Organization | | | | + + + + + | [facility] | [address] | [place] [address] | [phone] | + + + + + CBC [...] | | | Absolute | performed at [facility], [address] | K/uL | LABORATORY | | | | [facility], | | | | | | [place] [address] | | | | + + + + + + + + | Specimen | + + | Blood | + + + + + + + | Performing | Address | City/State/Zipcode | Phone Number | | Organization | | | | + + + + + | [facility] | [address] | [place] [address] | [phone] | + + + + + PTT (04/07/2019 5:34 AM PST) + + + + + + | Component | Value | Ref Range | Performed | Pathologist | | | | | At | Signature | + + + + + + | PTT | 48 (H)Comment: Testing | 23 - 32 seconds | [facility] | | | | performed at [facility];[address] | | LABORATORY | | | | [address];[place] | | | | | | [address] | | | | + + + + + + + + | Specimen | + + | Blood | + + + + + + + | Performing | Address | City/State/Zipcode | Phone Number | | Organization | | | | + + + + + | [facility] | [address] | [place] [address] | [phone] | + + + + + Protime [...] | | | | | performed at [facility];[address] | | | | | | [facility];[place], [place] | | | | | | [address] | | | | + + + + + + + + | Specimen | + + | Blood | + + + + + + + | Performing | Address | City/State/Zipcode | Phone Number | | Organization | | | | + + + + + | [facility] | [address] | [place] [address] | [phone] | + + + + + PTT (04/06/2019 9:03 PM PST) + + + + + + | Component | Value | Ref Range | Performed | Pathologist | | | | | At | Signature | + + + + + + | PTT | 48 (H)Comment: Testing | 23 - 32 seconds | [facility] | | | | performed at [facility];[address] | | LABORATORY | | | | [address];[place] | | | | | | [address] | | | | + + + + + + + + | Specimen | + + | Blood | + + + + + + + | Performing | Address | City/State/Zipcode | Phone Number | | Organization | | | | + + + + + | [facility] | [address] | [place] [address] | [phone] | + + + + + PTT (04/06/2019 3:15 PM PST) + + + + + + | Component | Value | Ref Range | Performed | Pathologist | | | | | At | Signature | + + + + + + | PTT | 48 (H)Comment: Testing | 23 - 32 seconds | [facility] | | | | performed at [facility];[address] | | LABORATORY | | | | [address];[place], [place] | | | | | | [address] | | | | + + + + + + + + | Specimen | + + | Blood | + + + + + + + | Performing | Address | City/State/Zipcode | Phone Number | | Organization | | | | + + + + + | [facility] | [address] | [place] [address] | [phone] | + + + + + PTT (04/06/2019 10:25 AM PST) + + + + + + | Component | Value | Ref Range | Performed | Pathologist | | | | | At | Signature | + + + + + + | PTT | 40 (H)Comment: Testing | 23 - 32 seconds | [facility] | | | | performed at [facility];[address] | | LABORATORY | | | | [address];[place], [place] | | | | | | [address] | | | | + + + + + + + + | Specimen | + + | Blood | + + + + + + + | Performing | Address | City/State/Zipcode | Phone Number | | Organization | | | | + + + + + | [facility] | [address] | [place] [address] | [phone] | + + + + + ECG [...] | | | | | ONLY, -COMPUTER (500), | | | | | | assignment editor Destini Moy | | | | [...] [facility] | | | | performed at [facility];[address] | | LABORATORY | | | | [address];[place] | | | | | | [address] | | | | + + + + + + + + | Specimen | + + | | + + + + + + + | Performing | Address | City/State/Zipcode | Phone Number | | Organization | | | | + + + + + | [facility] | [address] | [place] [address] | [phone] | + + + + + Protime INR (04/06/2019 4:13 AM PST) + + + + + + | Component | Value | Ref Range | Performed | Pathologist | | | | | At | Signature | + + + + + + | INR | 1.0Comment: REFERENCE | | [facility] | | | [...] | | | | | performed at [facility];[address] | | | | | | [address] [facility];[place], [place] | | | | | | [address] | | | | + + + + + + + + | Specimen | + + | Blood | + + + + + + + | Performing | Address | City/State/Zipcode | Phone Number | | Organization | | | | + + + + + | [facility] | [address] | [place] [address] | [phone] | + + + + + Phosphorus (04/06/2019 4:13 AM PST) + + + + + + | Component | Value | Ref Range | Performed | Pathologist | | | | | At | Signature | + + + + + + | Phosphorus | 2.7Comment: Testing | 2.3 - 4.8 mg/dL | [facility] | | | | performed at [facility];[address] | | LABORATORY | | | | [address];[place] | | | | | | [address] | | | | + + + + + + + + | Specimen | + + | Blood | + + + + + + + | Performing | Address | City/State/Zipcode | Phone Number | | Organization | | | | + + + + + | [facility] | [address] | [place] [address] | [phone] | + + + + + Comprehensive [...] >60Comment: GFR <60: | >60 | [facility] | | | GFR | CHRONIC [...] | | | | | performed at [facility] | | | | | | [facility];[place], [place] | | | | | | [address] | | | | + + + + + + + + | Specimen | + + | Blood | + + + + + + + | Performing | Address | City/State/Zipcode | Phone Number | | Organization | | | | + + + + + | [facility] | [address] | [place] [address] | [phone] | + + + + + CBC [...] | | | Absolute | performed at [facility];[address] | K/uL | LABORATORY | | | | [address];[place], [place] | | | | | | [address] | | | | + + + + + + + + | Specimen | + + | Blood | + + + + + + + | Performing | Address | City/State/Zipcode | Phone Number | | Organization | | | | + + + + + | [facility] | [address] | [place] [address] | [phone] | + + + + + Magnesium (04/06/2019 4:13 AM PST) + + + + + + | Component | Value | Ref Range | Performed | Pathologist | | | | | At | Signature | + + + + + + | Magnesium | 1.9Comment: Testing | 1.7 - 2.4 mg/dL | [facility] | | | | performed at [facility];[address] | | LABORATORY | | | | [address];[place] | | | | | | [address] | | | | + + + + + + + + | Specimen | + + | Blood | + + + + + + + | Performing | Address | City/State/Zipcode | Phone Number | | Organization | | | | + + + + + | [facility] | [address] | [place] [address] | [phone] | + + + + + PTT (04/05/2019 10:01 PM PST) + + + + + + | Component | Value | Ref Range | Performed | Pathologist | | | | | At | Signature | + + + + + + | PTT | 41 (H)Comment: Testing | 23 - 32 seconds | [facility] | | | | performed at [facility];[address] | | LABORATORY | | | | [address];[place], [place] | | | | | | [address] | | | | + + + + + + + + | Specimen | + + | Blood | + + + + + + + | Performing | Address | City/State/Zipcode | Phone Number | | Organization | | | | + + + + + | [facility] | [address] | [place] [address] | [phone] | + + + + + PTT (04/05/2019 3:52 PM PST) + + + + + + | Component | Value | Ref Range | Performed | Pathologist | | | | | At | Signature | + + + + + + | PTT | 55 (H)Comment: Testing | 23 - 32 seconds | [facility] | | | | performed at [facility];[address] | | LABORATORY | | | | [facility];[place], [place] | | | | | | [address] | | | | + + + + + + + + | Specimen | + + | Blood | + + + + + + + | Performing | Address | City/State/Zipcode | Phone Number | | Organization | | | | + + + + + | [facility] | [address] | [place] [address] | [phone] | + + + + + CBC [...] | 11.6Comment: NO NORMAL | fl | [facility] | | | | RANGE ESTABLISHEDTesting | | LABORATORY | | | | performed at [facility], [address] | | | [address] | [address], | | | | | | [place] [address] | | | | + + + + + + + + | Specimen | + + | Blood | + + + + + + + | Performing | Address | City/State/Zipcode | Phone Number | | Organization | | | | + + + + + | [facility] | [address] | [place] [address] | [phone] | + + + + + PTT (04/05/2019 8:28 AM PST) + + + + + + | Component | Value | Ref Range | Performed | Pathologist | | | | | At | Signature | + + + + + + | PTT | 66 (H)Comment: Testing | 23 - 32 seconds | [facility] | | | | performed at [facility];[address] | | LABORATORY | | | | [address];[place], [place] | | | | | | [address] | | | | + + + + + + + + | Specimen | + + | Blood | + + + + + + + | Performing | Address | City/State/Zipcode | Phone Number | | Organization | | | | + + + + + | [facility] | [address] | [place] [address] | [phone] | + + + + + CBC no Differential (04/05/2019 8:28 AM PST) + + + + + + | Component | Value | Ref Range | Performed | Pathologist | | | | | At | Signature | + + + + + + | WBC | 11.60 (H) | 3.80 - 11.00 | [facility] [...] | | LABORATORY | | | | [facility], [address] | | | | | | [place] | | | | | | [address] | | | | + + + + + + + + | Specimen | + + | Blood | + + + + + + + | Performing | Address | City/State/Zipcode | Phone Number | | Organization | | | | + + + + + | [facility] | [address] | [place] [address] | [phone] | + + + + + Phosphorus (04/05/2019 2:18 AM PST) + + + + + + | Component | Value | Ref Range | Performed | Pathologist | | | | | At | Signature | + + + + + + | Phosphorus | 3.1Comment: Testing | 2.3 - 4.8 mg/dL | [facility] | | | | performed at [facility];[address] | | LABORATORY | | | | [address];[place], [place] | | | | | | [address] | | | | + + + + + + + + | Specimen | + + | Blood | + + + + + + + | Performing | Address | City/State/Zipcode | Phone Number | | Organization | | | | + + + + + | [facility] | [address] | [place] [address] | [phone] | + + + + + Comprehensive [...] | | | | | performed at [facility];[address] | | | | | | [facility];[place], [place] | | | | | | [address] | | | | + + + + + + + + | Specimen | + + | Blood | + + + + + + + | Performing | Address | City/State/Zipcode | Phone Number | | Organization | | | | + + + + + | [facility] | [address] [facility] | [place] [address] | [phone] | + + + + + CBC [...] | | | Absolute | performed at [facility];[address] | K/u[address] | LABORATORY | | | | [address];[place], [place] | | | | | | [address] | | | | + + + + + + + + | Specimen | + + | Blood | + + + + + + + | Performing | Address | City/State/Zipcode | Phone Number | | Organization | | | | + + + + + | [facility] | [address] | [place] [address] | [phone] | + + + + + PTT (04/05/2019 2:18 AM PST) + + + + + + | Component | Value | Ref Range | Performed | Pathologist | | | | | At | Signature | + + + + + + | PTT | 45 (H)Comment: Testing | 23 - 32 seconds | [facility] | | | | performed at [facility];[address] | | LABORATORY | | | | [address];[place] | | | | | | [address] | | | | + + + + + + + + | Specimen | + + | Blood | + + + + + + + | Performing | Address | City/State/Zipcode | Phone Number | | Organization | | | | + + + + + | [facility] | [address] | [place] [address] | [phone] | + + + + + Vitamin B-12 (04/05/2019 2:18 AM PST) + + + + + + | Component | Value | Ref Range | Performed | Pathologist | | | | | At | Signature | + + + + + + | VITAMIN | 747Comment: Testing | 254 - 1,320 | [facility] | | | B-12 | performed at [facility], [address] | pg/mL | LABORATORY | | | | [address], | | | | | | [place] [address] | | | | + + + + + + + + | Specimen | + + | Blood | + + + + + + + | Performing | Address | City/State/Zipcode | Phone Number | | Organization | | | | + + + + + | [facility] | [address] | [place] [address] | [phone] | + + + + + Retic [...] | | | Reticulocyt | performed at [facility];[address] | | LABORATORY | | | e Count | [address];[place] | | | | | | [address] | | | | + + + + + + + + | Specimen | + + | Blood | + + + + + + + | Performing | Address | City/State/Zipcode | Phone Number | | Organization | | | | + + + + + | [facility] | [address] | [place] [address] | [phone] | + + + + + Iron [...] | | | | | [place] [address] | | | | + + + + + + + + | Specimen | + + | Blood | + + + + + + + | Performing | Address | City/State/Zipcode | Phone Number | | Organization | | | | + + + + + | [facility] | [address] | [place] [address] | [phone] | + + + + + Folate (04/05/2019 2:18 AM PST) + + + + + + | Component | Value | Ref Range | Performed | Pathologist | | | | | At | Signature | + + + + + + | FOLATE | 16.6Comment: Testing | >5.4 ng/mL | [facility] | | | | performed at [facility], [address] | | LABORATORY | | | | [address], | | | | | | [place] [address] | | | | + + + + + + + + | Specimen | + + | Blood | + + + + + + + | Performing | Address | City/State/Zipcode | Phone Number | | Organization | | | | + + + + + | [facility] | [address] | [place] [address] | [phone] | + + + + + Ferritin (04/05/2019 2:18 AM PST) + + + + + + | Component | Value | Ref Range | Performed | Pathologist | | | | | At | Signature | + + + + + + | Ferritin | 193 (H)Comment: Testing | 6 - 170 ng/mL | [facility] | | | | performed at [facility], [address] | | LABORATORY | | | | [address], | | | | | | [place] [address] | | | | + + + + + + + + | Specimen | + + | Blood | + + + + + + + | Performing | Address | City/State/Zipcode | Phone Number | | Organization | | | | + + + + + | [facility] | [address] | [place] [address] | [phone] | + + + + + Magnesium (04/05/2019 2:18 AM PST) + + + + + + | Component | Value | Ref Range | Performed | Pathologist | | | | | At | Signature | + + + + + + | Magnesium | 1.7Comment: Testing | 1.7 - 2.4 mg/dL | [facility] | | | | performed at [facility];[address] | | LABORATORY | | | | [address];[place] | | | | | | [address] | | | | + + + + + + + + | Specimen | + + | Blood | + + + + + + + | Performing | Address | City/State/Zipcode | Phone Number | | Organization | | | | + + + + + | [facility] | [address] | [place] [address] | [phone] | + + + + + CBC [...] LABORATORY | | | | performed at [facility];[address] | | | | | | [address];[place], [place] | | | | | | [address] | | | | + + + + + + + + | Specimen | + + | Blood | + + + + + + + | Performing | Address | City/State/Zipcode | Phone Number | | Organization | | | | + + + + + | [facility] | [address] | [place] [address] | [phone] | + + + + + PTT (04/04/2019 6:42 PM PST) + + + + + + | Component | Value | Ref Range | Performed | Pathologist | | | | | At | Signature | + + + + + + | PTT | 33 (H)Comment: Testing | 23 - 32 seconds | [facility] | | | | performed at [facility];[address] | | LABORATORY | | | | [address];[place] | | | | | | [address] | | | | + + + + + + + + | Specimen | + + | Blood | + + + + + + + | Performing | Address | City/State/Zipcode | Phone Number | | Organization | | | | + + + + + | [facility] | [address] | [place] [address] | [phone] | + + + + + CBC [...] | 10.7Comment: NO NORMAL | fl | [facility] | | | | RANGE ESTABLISHEDTesting | | LABORATORY | | | | performed at [facility];[address] | | | | | | [address];[place] | | | | | | [address] | | | | + + + + + + + + | Specimen | + + | Blood | + + + + + + + | Performing | Address | City/State/Zipcode | Phone Number | | Organization | | | | + + + + + | [facility] | [address] | [place] [address] | [phone] | + + + + + CBC [...] LABORATORY | | | | performed at [facility];[address] | | | | | | [address];[place] | | | | | | [address] | | | | + + + + + + + + | Specimen | + + | Blood | + + + + + + + | Performing | Address | City/State/Zipcode | Phone Number | | Organization | | | | + + + + + | [facility] | [address] | [place] [address] | [phone] | + + + + + PTT (04/04/2019 12:36 PM PST) + + + + + + | Component | Value | Ref Range | Performed | Pathologist | | | | | At | Signature | + + + + + + | PTT | 54 (H)Comment: Testing | 23 - 32 seconds | [facility] | | | | performed at [facility];[address] | | LABORATORY | | | | [address];[place] | | | | | | [address] | | | | + + + + + + + + | Specimen | + + | Blood | + + + + + + + | Performing | Address | City/State/Zipcode | Phone Number | | Organization | | | | + + + + + | [facility] | [address] [facility] | [place] [address] | [phone] | + + + + + Magnesium (04/04/2019 11:52 AM PST) + + + + + + | Component | Value | Ref Range | Performed | Pathologist | | | | | At | Signature | + + + + + + | Magnesium | 1.9Comment: Testing | 1.7 - 2.4 mg/dL | [facility] | | | | performed at [facility];[address] | | LABORATORY | | | | [address];[place], [place] | | | | | | [address] | | | | + + + + + + + + | Specimen | + + | | + + + + + + + | Performing | Address | City/State/Zipcode | Phone Number | | Organization | | | | + + + + + | [facility] | [address] | [place] [address] | [phone] | + + + + + Comprehensive [...] | | | | | performed at [facility];[address] | | | | | | [address] [facility];[place], [place] | | | | | | [address] | | | | + + + + + + + + | Specimen | + + | | + + + + + + + | Performing | Address | City/State/Zipcode | Phone Number | | Organization | | | | + + + + + | [facility] | [address] [facility] | [place] [address] | [phone] | + + + + + CBC [...] LABORATORY | | | | performed at [facility] | | | | | | [address] [facility];[place], [place] | | | | | | [address] | | | | + + + + + + + + | Specimen | + + | Blood | + + + + + + + | Performing | Address | City/State/Zipcode | Phone Number | | Organization | | | | + + + + + | [facility] | [address] | [place] [address] | [phone] | + + + + + Red [...] BANK | Testing performed at | | [facility] | | | COMMENT | [facility];[address] [facility] | | LABORATORY | | | | [address];[place] [address] | | | | + + + + + + + + | Specimen | + + | | + + + + + + + | Performing | Address | City/State/Zipcode | Phone Number | | Organization | | | | + + + + + | [facility] | [address] | [place] [address] | [phone] | + + + + + CBC no Differential (04/04/2019 6:18 AM PST) + + + + + + | Component | Value | Ref Range | Performed | Pathologist | | | | | At | Signature | + + + + + + | WBC | 11.23 (H) | 3.80 - 11.00 | [facility] | [...] LABORATORY | | | | performed at [facility];[address] | | | | | | [address];[place] | | | | | | [address] | | | | + + + + + + + + | Specimen | + + | Blood | + + + + + + + | Performing | Address | City/State/Zipcode | Phone Number | | Organization | | | | + + + + + | [facility] | [address] [address] [facility] | [place] [address] | [phone] | + + + + + Marthaime INR (04/04/2019 6:18 AM PST) + + + + + + | Component | Value | Ref Range | Performed | Pathologist | | | | | At | Signature | + + + + + + | INR | 1.7Comment: REFERENCE | | [facility] | | | [...] | | | | | performed at [facility];[address] | | | | | | [address];[place], [place] | | | | | | [address] | | | | + + + + + + + + | Specimen | + + | Blood | + + + + + + + | Performing | Address | City/State/Zipcode | Phone Number | | Organization | | | | + + + + + | [facility] | [address] | [place] [address] | [phone] | + + + + + Iron, Total (04/03/2019 10:45 PM PST) + + + + + + | Component | Value | Ref Range | Performed | Pathologist | | | | | At | Signature | + + + + + + | Iron | 47Comment: Testing | 30 - 180 ug/dL | [facility] | | | | performed at [facility], [address] | | LABORATORY | | | | [address], | | | | | | [place] [address] | | | | + + + + + + + + | Specimen | + + | Blood | + + + + + + + | Performing | Address | City/State/Zipcode | Phone Number | | Organization | | | | + + + + + | [facility] | [address] | [place] [address] | [phone] | + + + + + CBC [...] LABORATORY | | | | performed at [facility];[address] | | | | | | [address];[place], [place] | | | | | | [address] | | | | + + + + + + + + | Specimen | + + | Blood | + + + + + + + | Performing | Address | City/State/Zipcode | Phone Number | | Organization | | | | + + + + + | [facility] | [address] | [place] [address] | [phone] | + + + + + Troponin I (04/03/2019 7:45 PM PST) + + + + + + | Component | Value | Ref Range | Performed | Pathologist | | | | | At | Signature | + + + + + + | Troponin I | 1.186 ()Comment: | 0.00 - 0.04 | [facility] | | | | 0.04 ng/mL [...] | | | | | performed at [facility] [facility];[address] | | | | | | [address] [facility];[place], [place] | | | | | | [address] | | | | + + + + + + + + | Specimen | + + | | + + + + + + + | Performing | Address | City/State/Zipcode | Phone Number | | Organization | | | | + + + + + | [facility] | [address] | [place] [address] | [phone] | + + + + + CBC [...] LABORATORY | | | | performed at [facility];[address] | | | | | | [address];[place] | | | | | | [address] | | | | + + + + + + + + | Specimen | + + | Blood | + + + + + + + | Performing | Address | City/State/Zipcode | Phone Number | | Organization | | | | + + + + + | [facility] | [address] | [place] [address] | [phone] | + + + + + ECG [...] | | | | | ONLY, -COMPUTER ([id number]), | | | | | | assignment editor Jocelynn Fry | | | | | | (12) on 04/06/2019 | | | | | [...] | | | | | COMMENT | [facility];[address] [place] [address] | | | | | | [place] [address] | | | | + + + + + + + + | Specimen | + + | | + + + + + + + | Performing | Address | City/State/Zipcode | Phone Number | | Organization | | | | + + + + + | [facility] | [address] | [place] [address] | [phone] | + + + + + PRODUCT: Plasma (04/03/2019 7:13 PM PST) + + + + + + | Component | Value | Ref Range | Performed | Pathologist | | | | | At | Signature | + + + + + + | BLOOD BANK | ORDER RECEIVED IN BLOOD | | [facility] | | | COMMENT | BANK. | | LABORATORY | | + + + + + + | UNIT # | [id number] | | [facility] | | | | | | LABORATORY [...] + + + | UNIT # | [id number] | | [facility] | | | | [...] | | | Status | performed at [facility];[address] | | LABORATORY | | | | [address];[place] | | | | | | [address] | | | | + + + + + + + + | Specimen | + + | | + + + + + + + | Performing | Address | City/State/Zipcode | Phone Number | | Organization | | | | + + + + + | [facility] | [address] | [place] [address] | [phone] | + + + + + CBC [...] | | | Absolute | performed at [facility];[address] | K/uL | LABORATORY | | | | [address];[place] | | | | | | [address] | | | | + + + + + + + + | Specimen | + + | Blood | + + + + + + + | Performing | Address | City/State/Zipcode | Phone Number | | Organization | | | | + + + + + | [facility] | [address] | [place] [address] | [phone] | + + + + + Type [...] + + + | BB BAND | [id number] | | [facility] | | | | | | LABORATORY | | + + + + + + | UNIT # | [id number] | | [facility] | | | | [...] + + + | UNIT # | [id number] | | [facility] | | | | [...] + + + | UNIT # | [id number] | | [facility] | | | | [...] | | | RESULT | performed at [facility];[address] | | LABORATORY | | | | [address];[place] | | | | | | [address] | | | | + + + + + + | UNIT # | [id number] | | [facility] | | | | [...] + | [facility] | [address] | [place] [address] | [phone] | + + + + + POC Glucose (04/03/2019 6:57 PM PST) + + + + + + | Component | Value | Ref Range | Performed | Pathologist | | | | | At | Signature | + + + + + + | Glucose, | 147 (H)Comment: Testing | 65 - 99 mg/dL | [facility] | | | POC | performed at [facility];[address] | | LABORATORY | | | | [address];[place], [place] | | | | | | [address] | | | | + + + + + + + + | Specimen | + + | | + + + + + + + | Performing | Address | City/State/Zipcode | Phone Number | | Organization | | | | + + + + + | [facility] | [address] | [place] [address] | [phone] | + + + + + CT [...] | Bhavin, Rad Results In - 04/03/2019 2:29 PM PST | | CT [...] | | | | | Signed by: [place], Hemant Monzon | | Sign Date/Time: 04/03/2019 2:26 PM [...] [facility] | | | | performed at [facility], [address] | | LABORATORY | | | | [address], | | | | | | [place] [address] | | | | + + + + + + + + | Specimen | + + | Blood | + + + + + + + | Performing | Address | City/State/Zipcode | Phone Number | | Organization | | | | + + + + + | [facility] | [address] | [place] [address] | [phone] | + + + + + Ferritin (04/03/2019 10:25 AM PST) + + + + + + | Component | Value | Ref Range | Performed | Pathologist | | | | | At | Signature | + + + + + + | Ferritin | 144Comment: Testing | 6 - 170 ng/mL | [facility] | | | | performed at [facility], [address] | | LABORATORY | | | | [address], | | | | | | [place] [address] | | | | + + + + + + + + | Specimen | + + | Blood | + + + + + + + | Performing | Address | City/State/Zipcode | Phone Number | | Organization | | | | + + + + + | [facility] | [address] | [place] [address] | [phone] | + + + + + Protime INR (04/03/2019 10:25 AM PST) + + + + + + | Component | Value | Ref Range | Performed | Pathologist | | | | | At | Signature | + + + + + + | INR | 2.9Comment: REFERENCE | | [facility] | | | [...] | | | | | performed at [facility];[address] | | | | | | [address];[place], [place] | | | | | | [address] | | | | + + + + + + + + | Specimen | + + | | + + + + + + + | Performing | Address | City/State/Zipcode | Phone Number | | Organization | | | | + + + + + | [facility] | [address] [facility] | [place] [address] | [phone] | + + + + + Basic [...] | | | | | performed at [facility];[address] | | | | | | [address];[place], [place] | | | | | | [address] | | | | + + + + + + + + | Specimen | + + | Blood | + + + + + + + | Performing | Address | City/State/Zipcode | Phone Number | | Organization | | | | + + + + + | [facility] | [address] | [place] [address] | [phone] | + + + + + CBC [...] | | | Absolute | performed at [facility];[address] | [address] | LABORATORY | | | | [address];[place] | | | | | | [address] | | | | + + + + + + + + | Specimen | + + | Blood | + + + + + + + | Performing | Address | City/State/Zipcode | Phone Number | | Organization | | | | + + + + + | [facility] | [address] | [place] [address] | [phone] | + + + + + documented in this encounter Visit Diagnoses + + | Diagnosis | + + | Bleeding Hemorrhage, unspecified | + + | Pseudoaneurysm (HCC) Aneurysm of unspecified site | + + | Decreased hemoglobin Anemia, unspecified | + + | Chronic atrial fibrillation (HCC) Atrial fibrillation | + + | Essential hypertension Unspecified essential hypertension | + + | Acute blood loss anemia Acute posthemorrhagic anemia | + + | Hematoma of left thigh, initial encounter | + + | Pseudoaneurysm following procedure (HCC) Vascular complications of other vessels | + + | Paroxysmal atrial fibrillation (HCC) Atrial fibrillation | + + | Hematoma of left thigh, subsequent encounter | + + | Persistent atrial fibrillation (HCC) Atrial fibrillation | + + | Acute pain Other acute pain | + + | Symptomatic anemia | + + | Hypertension Unspecified essential hypertension | + + | Atrial fibrillation, chronic (HCC) Atrial fibrillation | + + | Elevated troponin Other abnormal blood chemistry | + + documented in this encounter [...] | amiodarone (PACERONE) tablet | Given | 04/05/19 | 200 mg | | | | 200 mg 200 mg, Oral, DAILY, | | 20 9:11 | | | | | First dose on 04/04/19 at 0900 | | AM PST | | | | + +-------+ +--------+---+---+ +-------+ +--------+---+---+ | Given | 04/04/19 | 200 mg | | | | | 20 1:55 | | | | | | PM PST | | | | +-------+ +--------+---+---+ [...] | amiodarone (PACERONE) tablet | Given | 04/09/19 | 400 mg | | | | 400 mg 400 mg, Oral, 2 TIMES | | 20 7:41 | | | | | DAILY, First dose on Sat04/07/19 | | PM PST | | | | | at 0900, Reduce to 200 mg once | | | | | | | daily at time of discharge from | | | | | | | hospital, | | | | | | + +-------+ +--------+---+---+ +-------+ +--------+---+---+ | Given | 04/09/19 | 400 mg | | | | | 20 8:31 | | | | | | AM PST | | | | +-------+ +--------+---+---+ | Given | 04/08/19 | 400 mg | | | | | 20 8:22 | | | | | | PM PST | | | | +-------+ +--------+---+---+ +---+---+ | | | +---+---+ + +---------+ + +-------+---+ | amiodarone in dextrose | New Bag | 04/06/19 | 1 mg/min | 33.3 | | | (NEXTERONE) 1.8 mg/mL infusion 1 | | 20 10:23 | | mL/hr | | | mg/min (33.3333 mL/hr, rounded | | AM PST | | | | | to 33.3 mL/hr), at 33.3 mL/hr, | | | | | | | Intravenous, CONTINUOUS, Starting | | | | | | | 04/06/19 at 0815, For 6 | | | | | | | hours, Use 0.2 micron filter for | | | | | | | administration., | | | | | | + +---------+ + +-------+---+ +---+---+ | | | +---+---+ + +---------+ +--------+-------+---+ | amiodarone in dextrose | New Bag | 04/07/19 | 0.5 | 16.7 | | | (NEXTERONE) 1.8 mg/mL infusion | | 20 3:22 | mg/min | mL/hr | | | 0.5 mg/min (16.6667 mL/hr, | | AM PST | | | | | rounded to 16.7 mL/hr), at 16.7 | | | | | | | mL/hr, Intravenous, CONTINUOUS, | | | | | | | Starting 04/06/19 at 1415, Use | | | | | | | 0.2 micron filter for | | | | | | | administration., | | | | | | + +---------+ +--------+-------+---+ +---------+ +--------+-------+---+ | New Bag | 04/06/19 | 0.5 | 16.7 | | | | 20 5:36 | mg/min | mL/hr | | | | PM PST | | | | +---------+ +--------+-------+---+ | New Bag | 04/06/19 | 0.5 | 16.7 | | | | 20 2:57 | mg/min | mL/hr | | | | PM PST | | | | +---------+ +--------+-------+---+ +---+---+ | | | +---+---+ + +---------+ +--------+-------+---+ | amiodarone in dextrose | New Bag | 04/06/19 | 150 mg | 600 | | | (NEXTERONE) 150 mg/100 mL bolus | | 20 9:54 | | mL/hr | | | 150 mg 150 mg, Intravenous, | | AM PST | | | | | Administer over 10 Minutes, ONCE, | | | | | | | 04/06/19 at 0815, For 1 dose, | | | | | | | 150 mg in 100 mL D5W over 10 min | | | | | | | (15 mg/min) Use 0.2 micron | | | | | | | filter for administration., | | | | | | + +---------+ +--------+-------+---+ +---+---+ | | | +---+---+ + +-------+ +-------+---+---+ | atenolol (TENORMIN) tablet 50 | Given | 04/10/19 | 50 mg | | | | mg 50 mg, Oral, DAILY, First | | 20 8:01 | | | | | dose on 04/04/19 at 0900 | | AM PST | [...] fentaNYL (PF) injection 25-50 | Given | 04/04/19 | 25 mcg | | | | mcg 25-50 mcg, Intravenous, | | 20 1:25 | | | | | EVERY 5 MIN PRN, Pain, Initial | | PM PST | | | | | postop medication for URGENT PAIN | | | | | | | OR ESCALATING PAIN, Starting Sat | | | | | | | 04/04/19 at 1031, For 4 doses, | | | | | | | First dose must be lowest dose. | | | | | | | Use Pasero Sedation Scale. | | | | | | | [Opioid tolerant = One week or | | | | | | | longer, [id number] use of | | | | | [...] +-------+ +--------+---+---+ +-------+ +--------+---+---+ | Given | 04/04/19 | 25 mcg | | | | | 20 12:55 | | | | | | PM PST | | | | +-------+ +--------+---+---+ | Given | 04/04/19 | 25 mcg | | | | | 20 12:25 | | | | | | PM PST | | | | +-------+ +--------+---+---+ +---+---+ | | | +---+---+ + +-------+ +-------+---+---+ | furosemide (LASIX) injection 20 | Given | 04/09/19 | 20 mg | | | | mg 20 mg, Intravenous, ONCE, | | 20 4:04 | | | | | Dilcia 04/09/19 at 1600, For 1 dose, | | PM PST | | | | | Between 2 prbc, | | | | | | + +-------+ +-------+---+---+ +---+---+ | | | +---+---+ + +-------+ +---+---+---+ | glycerin 125 mL, mineral oil | Given | 04/06/19 | | | | | 125 mL in sterile water for | | 20 3:02 | | | | | irrigation 250 mL enema Rectal, | | PM PST | | | | | ONCE, 04/06/19 at 1200, For 1 | | | | | | | dose | | | | | | + +-------+ +---+---+---+ +---+---+ | | | +---+---+ + +---------+ + +-------+---+ | heparin in dextrose 100 | New Bag | 04/07/19 | 16 | 10.2 | | | units/mL infusion 12 Units/kg/hr | | 20 8:34 | Units/kg | mL/hr | | | | | PM PST | /hr | | | | 63.9 kg [place] weight (7.668 | | | | | | | mL/hr, rounded to 7.7 mL/hr), at | | | | | | | 7.7 mL/hr, Intravenous, | | | | | | | CONTINUOUS, Starting 04/04/19 | | | | | | | at 1230, CARDIAC DOSE HEPARIN | | | | | | | PROTOCOL STARTING heparin | | | | | | | infusion dose 12 units/kg/hr, | | | | | | | initial rate max 1,000 units/hr. | | | | | | | Draw APTT from an IV site other | | | | | | | than heparin IV site 6 hours | | | | | | | after starting a heparin | | | | | | | infusion. APTT Nomogram for | | | | | | | ADJUSTING heparin APTT < 20 | | | | | | | seconds: Bolus 5,000 units and | | | | | | | Increase rate by 3 units/kg/hr | | | | | | | Repeat aPTT 6 hr after change | | | | | | | APTT 20-29 seconds: Bolus 2,500 | | | | | | | units and Increase rate by 2 | | | | | | | units/kg/hr Repeat aPTT 6 hr | | | | | | | after change APTT 30-45 seconds | | | | | | | Increase rate by 2 units/kg/hr | | | | | | | Repeat aPTT 6 hr after change | | | | | | | APTT 46-56 seconds: (GOAL | | | | | | | RANGE): Cardiac dose | | | | | | | therapeutic range No change | | | | | | | APTT 57-75 seconds: Decrease | | | | | | | rate by 2 units/kg/hr Repeat | | | | | | | aPTT 6 hr after change IF aPTT > | | | | | | | 75 seconds: Decrease rate by 3 | | | | | | | units/kg/hr Do not hold | | | | | | | infusion Repeat aPTT 6 hr after | | | | | | | change, | | | | | | + +---------+ + +-------+---+ + + + +-------+---+ | Rate/Dose Verify-Dual Sign | 04/07/19 | 16 | 10.2 | | | | 20 7:03 | Units/kg | mL/hr | | | | PM PST | /hr | | | + + + +-------+---+ | Rate/Dose Verify-Dual Sign | 04/07/19 | 16 | 10.2 | | | | 20 7:05 | Units/kg | mL/hr | | | | AM PST | /hr | | | + + + +-------+---+ [...] | | | | | | Starting Sat04/03/19 at 2230 | | | | | [...] | | +---+---+ + +-------+ +---------+---+---+ | iohexol (OMNIPAQUE 350) 350 | Given | 04/03/19 | 100 mLs | | | | mg/mL injection 100 mL 100 mL, | | 20 1:07 | | | | | Intravenous, ONCE PRN, Other, | | PM PST | | | | | Starting Sat04/03/19 at 1307, For | | | | | | | 1 dose, Cat Scanner | | | | | | + +-------+ +---------+---+---+ +---+---+ | | | +---+---+ + +---------+ +--------+--------+---+ | iron sucrose (VENOFER) 300 mg | New Bag | 04/05/19 | 300 mg | 176.7 | | | in sodium chloride 0.9% 250 mL | | 20 5:39 | | mL/hr | | | IVPB 300 mg, Intravenous, | | AM PST | | | | | Administer over 90 Minutes, ONCE, | | | | | | | 04/05/19 at 0600, For 1 dose | | | | | | + +---------+ +--------+--------+---+ +---+---+ | | | +---+---+ + +-------+ [...] + +-------+ +-------+---+---+ | lidocaine 1% injection PRN, | Given | 04/04/19 | 5 mLs | | | | Starting 04/04/19 at 0806 | | 20 8:06 | | | | | | | AM PST | | | | + +-------+ +-------+---+---+ +---+---+ | | | +---+---+ + +-------+ +---------+---+---+ | magnesium citrate liquid 296 mL | Given | 04/06/19 | 296 mLs | | | | 296 mL, Oral, ONCE, Sat04/06/19 | | 20 11:35 | | | | | at 1100, For 1 dose | | AM PST | | | | + +-------+ +---------+---+---+ +---+---+ | | | +---+---+ + +-------+ +------+---+---+ | morphine injection 4 mg 4 mg, | Given | 04/04/19 | 4 mg | | | | Intravenous, EVERY 30 MIN PRN, | | 20 9:01 | | | | | Pain, Starting 04/03/19 at | | PM PST | | | | | 1005, For 5 doses | | | | | | + +-------+ +------+---+---+ +-------+ +------+---+---+ | Given | 04/04/19 | 4 mg | | | | | 20 6:16 | | | | | | AM PST | | | | +-------+ +------+---+---+ | Given | 04/03/19 | 4 mg | | | | | 20 10:08 | | | | | | PM PST | | | | +-------+ +------+---+---+ +---+---+ | | | +---+---+ + +-------+ +------+---+---+ | ondansetron (ZOFRAN ODT) | Given | 04/03/19 | 8 mg | | | | disintegrating tablet 8 mg 8 mg, | | 20 10:23 | | | | | Oral, ONCE, Sat04/03/19 at 1010, | | AM PST | | | | | For [...] | | | + +---+ + +-------+ +-------+---+ + | phytonadione (VITAMIN K) 10 | Given | 04/03/19 | 10 mg | | Arm-Left | | mg/mL injection 10 mg 10 mg, | | 20 8:01 | | | Upper | | Subcutaneous, ONCE, 04/03/19 | | PM PST | | | | | at 1940, For 1 dose | | | | | | + +-------+ +-------+---+ + +---+---+ | | | +---+---+ + +-------+ +------+---+---+ | polyethylene glycol (MIRALAX) | Given | 04/03/19 | 17 g | | | | powder 17 g 17 g, Oral, DAILY, | | 20 12:22 | | | | | First dose on Sat04/03/19 at | | PM PST | | | | | 1115, Mix with 8 oz. water., | | | | | | + +-------+ +------+---+---+ +---+---+ | | | +---+---+ + +-------+ +------+---+---+ | polyethylene glycol (MIRALAX) | Given | 04/06/19 | 17 g | | | | powder 17 g 17 g, Oral, DAILY, | | 20 9:48 | | | | | First dose on Sat04/04/19 at | | AM PST | | [...] | | +---+---+ + +-------+ +--------+---+---+ | potassium chloride (KLOR-CON) | Given | 04/09/19 | 40 mEq | | | | ER tablet 40 mEq 40 mEq, Oral, | | 20 10:10 | | | | | ONCE, [facility] 04/09/19 at 1030, For 1 | | AM PST | | | | | dose, May take with food to | | | | | | | decrease GI upset. May take with | | | | | | | food to decrease GI upset., | | | | | | + [...] | | +---+---+ + +-------+ +------+---+---+ | warfarin (COUMADIN) tablet 5 mg | Given | 04/07/19 | 5 mg | | | | 5 mg, Oral, Daily - Warfarin, | | 20 5:32 | | | | | First dose on Sat04/05/19 at | | PM PST | | | | | 1800, Reproductive Risk: Use | | | | | | | appropriate handling precautions. | | | | | | | Drug education required., | | | | | | + +-------+ +------+---+---+ +-------+ +------+---+---+ | Given | 04/06/19 | 5 mg | | | | | 20 5:53 | | | | | | PM PST | | | | +-------+ +------+---+---+ | Given | 04/05/19 | 5 mg | | | | | 20 6:07 | | | | | | PM PST | | | | +-------+ +------+---+---+ +---+---+ | | | +---+---+ + +-------+ +--------+---+---+ | warfarin (COUMADIN) tablet 7.5 | Given | 04/08/19 | 7.5 mg | | | | mg 7.5 mg, Oral, Once - | | 20 5:42 | | | | | Warfarin, First dose on Sat | | PM PST | | | | | 04/08/19 at 1800, For 1 dose, | | | | | | | Reproductive Risk: Use | | | | | | | appropriate handling precautions. | | | | | | | Drug education required., | | | | | | + +-------+ +--------+---+---+ +---+---+ | | | +---+---+ + +-------+ +--------+---+---+ | warfarin (COUMADIN) tablet 7.5 | Given | 04/09/19 | 7.5 mg | | | | mg 7.5 mg, Oral, Once - | | 20 5:34 | | | | | Warfarin, First dose (after last | | PM PST | | | | | reorder) on [facility] 04/09/19 at 1800, | | | | | | | For 1 dose, Reproductive Risk: | | | | | | | Use appropriate handling | | | | | | | precautions. Drug education | | | | | | | required., | | | | | | + +-------+ +--------+---+---+ + +---+ | | | + +---+ | warfarin per pharmacy PHARMACY | | | CONSULT, Starting 04/05/19 at | | | 1050, What is the goal INR range | | | for this patient? 2-3 | | + +---+ | | | + +---+ documented in this encounter
--- OUTSIDE RECORDS SUMMARY | ~2019-07-17 | XMS | Encounter Summary ---
Demographics + + + | Address | [address] | | | [place] [address] | + + + | Home Phone | | + + + | Preferred Language | Unknown | + + + | Marital Status | Single | + + + | Jehovah'S Witness Affiliation | Unknown | + + + | Race | White | + + + | Ethnic Group | Not or | + + + Author + + + | Author | [facility] | + + + | Organization | [facility] | + + + | Address | Unknown | + + + | Phone | Unavailable | + + + Support + + +---------+ + | Name | Relationship | Address | Phone | + + +---------+ + | Beatrice Paulson | ECON | Unknown | | + + +---------+ + Care Team Providers + +------+ + | Care Lining Presser Name | Role | Phone | + [...] Closed | | Clinical | Diagnoses | [place], | [facility] | | | | Neurophysiolo | Myalgia | Hyacinth Alarcon, | [facility] [address] | | | | gy | Procedures | ,[facility] [address] | | | | | AUTONOMIC | [address] | Mailcode: | | | | | REFLEX | [facility], | [address] | | | | | TESTING,[place] | [place] | for Health | | | | | T - | [phone] | and Healing, | | | | | NEUROLOGY | Phone: | [address], | | | | | | [phone] | [address]th Floor | | | | | | Fax: | [place], [place] | | | | | | [phone] | [address] | | | | | | | Phone: | | | | | | | [phone] | | | | | | | Fax: | | | | | | | [phone] | +--------+--------+ + + + + Diagnostic [...] | | | | | CONDUCTION | [facility], | [address] | | | | | STUDIES,[place] | [place] | for Health | | | | | T - | [address] | and Healing, | | | | | NEUROLOGY | Phone: | [address], | | | | | | [phone] | [address]th Floor | | | | | | Fax: | [place], [place] | | | | | | [phone] | [address] | | | | | | | Phone: | | | | | | | [phone] | | | | | | | Fax: | | | | | | | [phone] | +--------+--------+ + + + + Reason [...] | | myositis, | MD Mike | [facility] [address] | | | | | unspecified | [address] | | | | | | INTERNAL | Mailcode: | | | | | | MEDICINE | [facility] | | | | | | [facility] | for Health | | | | | | [place] | and Healing, | | | | | | [address] | [address], | | | | | | [place], | [address]th Floor | | | | | | [place] [address] | [place], [place] | | | | | | Phone: | [address] | | | | | | [phone] | Phone: | | | | | | Fax: | [phone] | | | | | | [phone] | Fax: | | | | | | | [phone] | +--------+--------+ + + + + Encounter Details +--------+---------+ + + + | Date | Type | Department | Care Team | Description | +--------+---------+ + + + | 10/07/ | Office | Neurology | Hyacinth Corona | Myalgia (Primary Dx) | | 2012 | Visit | Neuromuscular Clinic | MD Dorian,[facility] [address] | | | | | at [place] for | [address] [facility], | | | | | Health & Healing | [place] [address] | | | | | [address] | [phone] | | | | | Mailcode: [facility] | | | | | | [facility] | | | | | | and Healing, | | | | | | [address], | | | | | | Floor [place], [place] | | | | | | [address] | | | | | | [phone] | | | +--------+---------+ + + + [...] PSTMailed result to pt [facility] signed by Jammie Pinedo MA at 01/20/2013 4:09 PM PSTTeressa Triplett MD - 10/15/2012 4: 09 PM PDTI reviewed the patient's history, examination findings and diagnostic test results with Dr. Corona. I personally repeated pertinent parts of the history and examination. I di scussed the diagnosis and management with Dr. Corona and agree with her documentation. Teressa Triplett MD Mop Machine Operator Department of Neurology yacinth Corona MD, MPH [...] 1 year. She is r eferred to [facility] Neurom[facility] by her PCP Dr. [...] and underwent an MRI lumbar spine at [facility] in [place] at 01/2012. Her surgeon told her that [...] note, patient has had 2 EMGs in [place]: 12/2009 (Dr. Rogers) and 07/2011 (Dr. Mihaela ley) - none in the past year after her new sx started. 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 In February 2012, Patient saw Neurologist Dr. Muhammad in [place], [place], after an episode of slurred speech [...] Patient was started on Carvedilol by a senior electronics design engineer around that time. She was also tried [...] 5 years ago. 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 S ocial drinking, minimal. No illicits. Family [...] Triplett, attending physician, who agrees with the [facility] assessment and plan. HYACINTH CORONA MD,MPH Neurology [...] + | [facility] - | [address] | [place] [address] | | | [place] | | | [...] + | [facility] - | [address] | [place] [address] | | | [place] | | | [...] by | | | | | | [address] | | | | | | [address], [facility],[place] | | | | | | [address] | | | | | | [phone] | | | | | | Uche [...] [facility] | [address] | [place], [place] | | | [facility] | | [address] | | + + + + + [...] - | | | | | | [facility] | | + +---------+ + + + + + | Specimen | + + | Blood - Blood | + + + + + + + | Performing | Address | City/State/Zipcode | Phone Number | | Organization | | | | + + + + + | [facility] - | [id number] | [place] [address] | | | [facility] | | | | + + + [...]
--- OUTSIDE RECORDS SUMMARY | ~2019-07-17 | XMS | Encounter Summary ---
Demographics + + + | Address | [address] | | | [place] [address] | + + + | Home Phone | | + + + | Preferred Language | Unknown | + + + | Marital Status | | + + + | Buddhism Affiliation | Unknown | + + + [...] [place] | | | | | [address] | | + + + + + | Beatrice Paulson | ECON | [address] | | | | | [place] | | | | | [address] | | + + + + + Care Team Providers + +------+ + | Care Cartridge Maker Name | Role | Phone | + +------+ + PCP | Unavailable | + +------+ + Encounter Details +--------+ + + + + | Date | Type | Department | Care Team | Description | +--------+ + + + + | 10/24/ | Abstract | [facility] | DATA MIGRATION KATIE | | | 2011 | | Conversion Location | SR | | | | | [address] | | | | | | [place], [place] | | | | | | [address] | | | | | | [phone] | | | +--------+ + + + [...] + + + | Blood Pressure | - | - | | + + + + + | Pulse | - | - | | + [...] + + + + | Weight | 117 kg (258 lb) | 06/28/2011 12:00 AM | | | | | PDT | | + + + + + | Height | 172.7 cm (5' 8") | 02/28/2009 12:00 AM | | | | | PST | | + + + + + | Body Mass Index | 39.23 | 02/28/2009 12:00 AM | | | | | PST | | + + + + + documented in this encounter Plan of Treatment +--------+---------+ + + + | Date | Type | Specialty | Care Team | Description | +--------+---------+ + + + | 10/06/ | Office | Cardiology | Elvin Jamil | | | 2019 | Visit | | MD [address] | | | | | | [place], [place] | | | | | | [place] | | | | | | [address] | | | | | | | | +--------+---------+ + + + documented as of this encounter Procedures + +--------+ + + + | Procedure Name | Priori | Date/Time | Associated Diagnosis | Comments | | | ty | | | | + +--------+ + + + | PAP SMEAR | Routin | 05/29/2011 | | Results for this | | | e | 12:00 AM | | procedure are in the | | | | PDT | | results section. | + +--------+ + + + | CAT SCREENING | Routin | 04/10/2011 | | Results for this | | BILATERAL | e | 12:00 AM | | procedure are in the | | | | PST | | results section. | + +--------+ + + + | ENDOSCOPY, COLON, | Routin | 01/27/2004 | | Results for this | | DIAGNOSTIC | e | 12:00 AM | | procedure are in the | | | | PST | | results section. | + +--------+ + + + documented in this encounter Results Pap Smear (05/29/2011 12:00 AM PDT) + + | Specimen | + + | | + + + + + | Narrative | Performed At | + + + | | | + + + CAT Screening Bilateral (04/10/2011 12:00 AM PST) + + | Specimen | + + | | + + + + + | Narrative | Performed At | + + + | | | + + + ENDOSCOPY, COLON, DIAGNOSTIC (01/27/2004 12:00 AM PST) + + | Specimen | + + | | + + + + + | Narrative | Performed At | + + + | | | + + + documented in this encounter Visit Diagnoses Not on filedocumented in this encounter
--- OUTSIDE RECORDS SUMMARY | ~2019-07-17 | XMS | Encounter Summary ---
Demographics + + + | Address | [address] | | | [place] [address] | + + + | Home Phone | | + + + | Preferred Language | Unknown | + + + | Marital Status | | + + + | Yazidi Affiliation | Unknown | + + + | Race | Unknown | + + + | Ethnic Group | Unknown | + + + Author + + + | Author | [facility] | | | and [place] | + + + | Organization | [facility] | | | and [place] | + + + | Address | Unknown | + + + | Phone | Unavailable | + + + Support + + + + + | Name | Relationship | Address | Phone | + + + + + | Veronica Anderson | ECON | [place] | | | | | [address] | | + + + + + | Beatrice Paulson | ECON | [address] | | | | | [place] | | | | | [address] | | + + + + + Care Team Providers + +------+ + | Care Male Infertility Specialist Name | Role | Phone | [...] lumbar | MD [address] | | | | | spinal | [address] | [address] [place] | | | | | fusion | [place], | [place], [place] | | | | | Bilateral | [place] [address] | [address] | | | | | leg weakness | Phone: | Phone: | | | | | Procedures | [phone] | [phone] | | | | | MRI Lumbar | [phone] Fax: | Fax: | | | | | Spine w wo | | [phone] | | | | | Contrast | [phone] | | +--------+--------+ + + + + Encounter Details +--------+ + + + + | Date | Type | Department | Care Team | Description | +--------+ + + + + | 01/21/ | Orders Only | [facility] | Justen Ribera | Status post lumbar | | 2011 | | NEUROSURGERY [address] | F, MD [address] | spinal fusion; | | | | [address] | St [place], [place] | Bilateral leg | | | | [place] | [address] | weakness | | | | [address] | [phone] | | | | | [phone] | | | +--------+ + + + [...] | | | | | | [place] | | | | | | [address] | | | | | | | | +--------+---------+ + + + documented as of this encounter Results MRI Lumbar Spine w wo Contrast (01/31/2012 2:33 PM PST) + + | Specimen | + + | | + + + + + | Narrative | Performed At | + + + | [facility] | [place] | | Department [address] | [facility] | | [ rep ct [address]] [ rep ct [facility] | | st zip] Signed | - IMAGING | | | | | Patient Name: KASSIE BEAR Physician: | | | JOSI.01 : 1940 Age: 71 Sex: F Unit #: [id number] | | | Exam Date: 01/31/12 [place] [facility] [place] | | | Report #: [id number] Page: | | | %(RAD)RES..mtdd.print.filter("pg") of %(RAD) | | | RES..mtdd.print.filter("tpg") | | | | | | Accession Number: [id number] | | | LUMBAR SPINE MRI WITH [...] | | | Transcribed Date/Time: 01/31/2012 15:16 Executive Assistant: | | | <<Signature on File>> | | | Mando | | | Perla Yang MD01/31/12 1711 <Electronically signed by Mando Duncan | | | Celia [place]> Mando Yang MD 01/31/12 4927 | | | Executive Assistant: [email or web address][employer] [id number]/20/12 1516 | | | Justen Ribera MD | | + + + + + + + + | Performing | Address | City/State/Zipcode | Phone Number | | Organization | | | | + + + + + | [facility] | [address] | [place] | [phone] | | [facility] | | [address] | | | - IMAGING | | | | + + + + + documented in this encounter Visit Diagnoses + + | Diagnosis | + + | Status post lumbar spinal fusion Arthrodesis status | + + | Bilateral leg weakness Other musculoskeletal symptoms referable to limbs | + + documented in this encounter
--- OUTSIDE RECORDS SUMMARY | ~2019-07-17 | XMS | Encounter Summary ---
Demographics + + + | Address | [address] | | | [place] [address] | + + + | Home Phone | | + + + | Preferred Language | Unknown | + + + | Marital Status | | + + + | Adventism Affiliation | Unknown | + + + | Race | Unknown | + + + | Ethnic Group | Unknown | + + + Author + + + | Author | [facility] | | | and [place] | + + + | Organization | [facility] | | | and [place] | + + + | Address | Unknown | + + + | Phone | Unavailable | + + + Support + + + + + | Name | Relationship | Address | Phone | + + + + + | Veronica Anderson | ECON | [place] | | | | | [address] | | + + + + + | Beatrice Paulson | ECON | [address] | | | | | [place] | | | | | [address] | | + + + + + Care Team Providers + +------+ + | Care Houseperson Name | Role | Phone | + [...] + + | 06/30/ | Office | [facility] | Tyrel Orellana | Paroxysmal atrial | | 2020 | Visit | CARDIOLOGY TATUMS | MD [address] | fibrillation (HCC) | | | | [address] | [facility] | (Primary Dx); Sleep | | | | [facility] | F TATUMS MD | apnea, unspecified | | | | [address] | [address] | type | | | | [phone] | | | +--------+---------+ + + + [...] She is hoping to enroll in another [facility] therapy program near her home. She [...] ABLATION AF; Surgeon: Tyrel Orellana MD; [place] [facility] [place] ART[place] Left 04/04/2019 Procedure: ENDARTERECTOMY FEMORAL Will need arteriogram in IR initially under moderate se dation and if not amenable to stenting then will need left groin cut down.; Surgeon: Elizabeth Mullen DO; [place] [facility] [place] CARDI[place] N/A 12/22/2018 Procedure: CV EP CARDIOVERSION; Surgeon: Lori Recinos DO; [place] [facility] [place]ARDI[place]ERSION N/A 02/20/2019 Procedure: CV EP CARDIOVERSION; Surgeon: Tyrel Orellana MD; [place] [facility] [place]ARDI[place] N/A 04/07/2019 Procedure: CV EP CARDIOVERSION; Surgeon: Tyrel Orellana MD; [place] [facility] [place] Cataract Surgery 10/29/2011(left eye, Right [...] by Rufina Bach NP for Dr. Shah, [place] TOTAL KNEE ARTHROPLASTY Left 06/28/[address] 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 She did note an improveme nt in her symptoms with zoroastrianism of sinus rhythm but unfortunately symptoms returned [...] | | | | | | [place], [place] | | | | | | [id number] | | | | | | | [...] MD | | | | | | ([id number]) on 07/01/2019 | | | | | [...]
--- OUTSIDE RECORDS SUMMARY | ~2019-07-17 | XMS | Encounter Summary ---
Demographics + + + | Address | [address] | | | [place] [address] | + + + | Home Phone [...] [place] | | | | | [address] | | + + + + + | Beatrice Paulson | ECON | [address] | | | | | [place] | | | | | [address] | | + + + + + Care Team Providers + +------+ + | Care Forest Products Teacher Name | Role | Phone | + +------+ + | Parvez Vail MD | PCP | | + +------+ + Reason for Visit +--------+ + | Reason | Comments | +--------+ + | Other | Patient is not doing well today. | +--------+ + Encounter Details +--------+ + + + + | Date | Type | Department | Care Team | Description | +--------+ + + + + | 12/25/ | Telephone | 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 ) | | | | [place] | | | | | | [address] | | | | | | [phone] | | | +--------+ + + + [...] [place] | | | | | | [address] | | | | | | | | +--------+---------+ + + + documented as of this encounter Visit Diagnoses Not on filedocumented in this encounter"
--- OUTSIDE RECORDS SUMMARY | ~2019-07-17 | XMS | Encounter Summary ---
Demographics + + + | Address | [address] | | | [place] [address] | + + + | Home Phone | | + + + | Preferred Language | Unknown | + + + | Marital Status | | + + + | Islam Affiliation | Unknown | + + + | Race | Unknown | + + + | Ethnic Group | Unknown | + + + Author + + + | Author | [facility] | | | and [place] | + + + | Organization | [facility] | | | and [place] | + + + | Address | Unknown | + + + | Phone | Unavailable | + + + Support + + + + + | Name | Relationship | Address | Phone | + + + + + | Veronica Anderson | ECON | [place] | | | | | [address] | | + + + + + | Beatrice Paulson | ECON | [address] | | | | | [place] | | | | | [address] | | + + + + + Care Team Providers + +------+ + | Care Clerk Travel Reservations Name | Role | Phone | + [...] | Cervical | Stephan, | [address] | | | | | radiculopath | Olayinka Duncan MD | [place], | | | | | y | [address] | [place] | | | | | Procedures | [place] | [address] | | | | | [place] | [place], [place] | Phone: | | | | | DX/THER SBST | [address] | [phone] | | | | | INTRLMNR | Phone: | Fax: | | | | | CRV/THRC | [phone] | [phone] | | | | | W/IMG GDN | Fax: | | | | | | [place] | [phone] | | | | | | TRIAMCINOLON | | | | | | | E ACET INJ | | | | | | | NOS, 10 MG | | | | | | | LVMx1 C7-T1 | | | | | | | ILESI | | | | | | | *Schedule | | | | | | | JANIE | | | +--------+--------+ + + + + Encounter Details +--------+ + + + + | Date | Type | Department | Care Team | Description | +--------+ + + + + | 12/02/ | Hospital | [facility] | Alex Cutler, | Cervical stenosis of | | 2018 | Encounter | MED CTR XRAY [address] | PA-C [address] | spinal canal; | | | | [address] [place] | [address] [place] | Neural foraminal | | | | [place] [address] | [place] [address] | stenosis of cervical | | | | [phone] | spine | | | | | | | | | | | Security NursePaulino | | | | | | [place] [...] +---------+ + + | Blood Pressure | 163/86 | 12/02/2017 3:02 PM | | | | | PDT | | + +---------+ + + | Pulse | 101 | 12/02/2017 3:02 PM | | | | | PDT [...] [address] | | | | | | [facility] | | | | | | [place] | | | | | | [address] | | | | | | | | +--------+---------+ + + + documented as of this encounter Procedures + +--------+ + + + | Procedure Name | Priori | Date/Time | Associated Diagnosis | Comments | | | ty | | | | + +--------+ + + + | FL EPIDURAL STEROID | Routin | 12/02/2017 | Cervical stenosis | Results for this | | INJ CERVICAL | e | 2:36 PM | of spinal canal | procedure are in the | | THORACIC | | PDT | Neural foraminal | results section. | | INTERLAMINAR | | | stenosis of cervical | | | | | | spine | | + +--------+ + + + [...] | HISTORY: ICD-10 CODE M54.12 CERVICAL RADICULOPATHY Kassieamparo Bear | | | presents to the [...] + | Cervical stenosis of spinal canal Spinal stenosis in cervical region | + [...] +------+------+------+ | betamethasone (CELESTONE | Given | 12/03/19 | 9 mg | | | | SOLUSPAN) injection 9 mg 9 mg, | | 18 2:46 | | | | | Other, ONCE, Sat12/02/17 at | | PM PDT | | | | | 1500, For 1 dose, Shake well. Not | | | | | | | for IV use., | | | | | | + +--------+ +------+------+------+ +---+---+ | | | +---+---+ + +-------+ +-------+---+---+ | iohexol (OMNIPAQUE 300) 300 | Given | 12/03/19 | 4 mLs | | | | mg/mL injection 4 mL 4 mL, | | 18 2:44 | | | | | Other, ONCE, Sat12/02/17 at | | PM PDT | | | | | 1500, For 1 dose | | | | | | + +-------+ +-------+---+---+ +---+---+ | | | +---+---+ + +-------+ +-------+---+ + | lidocaine buffered 1.3% | Given | 12/03/19 | 6 mLs | | Other | | injection 6 mL 6 mL, | | 18 2:42 | | | (Comment | | Intradermal, ONCE, 12/02/17 | | PM PDT | | | ) | | at 1500, For 1 dose | | | | | | + +-------+ +-------+---+ + +---+---+ | | | +---+---+ documented in this encounter"
--- OUTSIDE RECORDS SUMMARY | ~2019-07-17 | XMS | Encounter Summary ---
Demographics + + + | Address | [address] | | | [place] [address] | + + + | Home Phone | | + + + | Preferred Language | Unknown | + + + | Marital Status | | + + + | Yarsanism Affiliation | Unknown | + + + | Race | Unknown | + + + | Ethnic Group | Unknown | + + + Author + + + | Author | [facility] | | | and [place] | + + + | Organization | [facility] | | | and [place] | + + + | Address | Unknown | + + + | Phone | Unavailable | + + + Support + + + + + | Name | Relationship | Address | Phone | + + + + + | Veronica Anderson | ECON | [place] | | | | | [address] | | + + + + + | Beatrice Paulson | ECON | [address] | | | | | [place] | | | | | [address] | | + + + + + Care Team Providers + +------+ + | Care Sales Correspondent Name | Role | Phone | + [...] | | | n | Lumbar | [address] | [address] [place] | | | | | spinal | [place], | [place], [place] | | | | | stenosis | [place] [address] | [address] Phone: | | | | | Spondylolist | Phone: | [phone] | | | | | hesis of | [phone] | Fax: | | | | | lumbar | [phone] Fax: | [phone] | | | | | region | | | | | | | Foraminal | [phone] | | | | | | stenosis [...] | | | [place], [place] | [address] | (HCC); S/P lumbar | | | | [address] | | fusion; S/P cervical | | | | [phone] | | spinal fusion; | | | [...] - 04/22/2012 11:27 AM [facility] your scheduled procedure to [...] our off ice. Please also provide a belly dump driver to take you home on the [...] and stomach. She was told by her film projector operator that Naproxen is a good choice with regard to the heart issues. I recommended that Meloxicam or Celebrex may also be good options as they are easier on the stomach, but I am not sure what their relativ e risk to the heart is. She will discuss those meds with her PCP and film projector operator. 2. The patient was very interested in [...] [address] | | | | | | [facility] | | | | | | [place], [place] | | | | | | [address] | | | | | | | [...]
--- OUTSIDE RECORDS SUMMARY | ~2019-07-17 | XMS | Encounter Summary ---
Demographics + + + | Address | [address] | | | [place] [address] | + + + | Home Phone [...] [place] | | | | | [address] | | + + + + + | Beatrice Paulson | ECON | [address] | | | | | [place] | | | | | [address] | | + + + + + Care Team Providers + +------+ + | Care Lead Nurse Name | Role | Phone | + [...] | | | | [place], | [address] Phone: | | | | | | [place] [address] | [phone] | | | | | | Phone: | Fax: | | | | | | [phone] | [phone] | | | | | | Fax: | | | | | | | [phone] | | +--------+ + + + + + Encounter Details +--------+---------+ + + + | Date | Type | Department | Care Team | Description | +--------+---------+ + + + | 07/18/ | Office | [facility] | Olayinka Rothman | 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 female being seen today at the [facility] t of Chan Weir PA-C with [...] Left 06/28/[address] Will at [facility] Squamous cell carcinoma (left jawline) removed [...] short or watcher automat long goods memory. She has appropriate fund of knowledge [...] [address] | | | | | | [facility] | | | | | | [place] | | | | | | [id number] | | | | | | | [...]
--- OUTSIDE RECORDS SUMMARY | ~2019-07-17 | XMS | Encounter Summary ---
Demographics + + + | Address | [address] | | | [place] [address] | + + + | Home Phone [...] [place] | | | | | [address] | | + + + + + | Beatrice Paulson | ECON | [address] | | | | | [place] | | | | | [address] | | + + + + + Care Team Providers + +------+ + | Care Scouring Machine Operator Name | Role | Phone | + +------+ + PCP | Unavailable | + +------+ + Encounter Details +--------+ + + + + | Date | Type | Department | Care Team | Description | +--------+ + + + + | 07/26/ | Hospital | [facility] | Justen Ribera | | | 2011 | Encounter | MED CTR XRAY [address] | [address], [address] | | | | | [address] [place] | [address] [place], [place] | | | | | [place] [address] | [id number] | | | | | [phone] | [phone] | | | | | | [...] | | | | | [facility] | | | | | | [place] | | | | | | [address] | | | | | | | | +--------+---------+ + + + documented as of this encounter Procedures + +--------+ + + + | Procedure Name | Priori | Date/Time | Associated Diagnosis | Comments | | | ty | | | | + +--------+ + + + | XR LUMBAR SPINE 4 + | | 07/27/2011 | | Results for this | | VW | | 11:53 AM | | procedure are in the | | | | PDT | | results section. | + +--------+ + + + | XR CERVICAL SPINE 1 | | 07/27/2011 | | Results for this | | VIEW | | 11:53 AM | | procedure are in the | | | | PDT | | results section. | + +--------+ + + + documented in this encounter Results XR Lumbar Spine 4 + Vw (07/27/2011 11:53 AM PDT) + + | Specimen | + + | | + + + + + | Narrative | Performed At | + + + | [facility] | [facility] | | [address] [facility] | [facility] | | LUMBAR SPINE: 07/27/2011 | DIAG IMG | | CLINICAL HISTORY: POSTOP L3-4 INTERSPINOUS FUSION. BACK PAIN. | | | FINDINGS: AP, lateral and lateral flexion and extension views of | | | the lumbar spine reviewed. Interspinous fusion plate is seen | | | across the spinous processes of L3 and L4. There is | | | anterolisthesis of L4 on L5, measuring approximately 9 mm. This | | | represents a stable position when compared to an May 2010 study. | | | Alignment is otherwise normal. Disk interspaces are normal except | | | for mild narrowing at L4-5. In both flexion and extension, no | | | significant change in alignment occurs. IMPRESSION: PRIOR | | | L3-4 INTERSPINOUS FUSION. 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 Dictated | | | Date/Time: 07/27/2011 15:14 Transcribed Date/Time: 07/27/2011 | | | 15:25 Apron Cleaner: <Electronically Signed by Mando Duncan | | | MD Celia> 08/02/11 [id number] | | + + + + + | Procedure Note | + + | Bhavin, Rad Conversion - 03/20/2013 5:32 PM [facility] | | Diagnostic Imaging Department | | [address] [facility] | | | | | | | | LUMBAR SPINE: 07/27/2011 | | | | CLINICAL HISTORY: POSTOP L3-4 INTERSPINOUS FUSION. BACK PAIN. | | | | FINDINGS: AP, lateral and lateral flexion and extension views of the lumbar | | spine reviewed. Interspinous fusion plate is seen across the spinous processes | | of L3 and L4. There is anterolisthesis of L4 on L5, measuring approximately 9 | | mm. This represents a stable position when compared to an May 2010 study. | | Alignment is otherwise normal. Disk interspaces are normal except for mild | | narrowing at L4-5. In both flexion and extension, no significant change in | | alignment occurs. | | | | IMPRESSION: PRIOR L3-4 INTERSPINOUS FUSION. STABLE DEGENERATIVE | | SPONDYLOLISTHESIS AT L4-5, WITH NO RADIOGRAPHIC DEMONSTRATION OF INSTABILITY. | | | | Dictated Date/Time: 07/27/2011 15:14 | | Transcribed Date/Time: 07/27/2011 15:25 | | Apron Cleaner: | | <Electronically Signed by Mando Yang MD> 08/02/11 [id number] | + + + +---------+ + + | Performing | Address | City/State/Zipcode | Phone Number | | Organization | | | | + +---------+ + + | [facility] | | | | | [facility] | | | | + +---------+ + + XR Cervical Spine 1 Vw (07/27/2011 11:53 AM PDT) + + | Specimen | + + | | + + + + + | Narrative | Performed At | + + + | [facility] | [facility] | | [address] [facility] | [facility] | | AP AND LATERAL VIEWS OF THE | DIAG IMG | | CERVICAL SPINE CLINICAL HISTORY: FOLLOW UP FUSION. | | | COMPARISON: 05/25/2010 FINDINGS: Anterior compression plate | | | and screws are present across C5-6. Interbody bone graft appea rs | | | entirely incorporated, with firm fusion across the disk interspace. | | | Alignment through the fused s egment and above is normal. At the | | | segment below, C6-7, there is disk space narrowing and endplate s | | | clerotic change similar to prior. Alignment at that level also | | | remains normal. No other adjacent ab normalities are seen. | | | IMPRESSION: 1. PRIOR ANTERIOR CERVICAL DISKECTOMY AND FUSION | | | THROUGH C5-6. DEGENERATIVE CHANGES AT THE LEVEL BE LOW, WITHOUT | | | OTHER ADJACENT ABNORMALITY. Dictated Date/Time: 07/27/2011 | | | 15:14 Transcribed Date/Time: 07/27/2011 15:26 Apron Cleaner: | | | <Electronically Signed by Mando Yang MD> 08/02/11 [id number] | | + + + + + | Procedure Note | + + | Bhavin, Rad Conversion - 03/20/2013 5:32 PM [facility] | | Diagnostic Imaging Department [address] [place] [address] | | AP AND LATERAL VIEWS OF THE CERVICAL SPINE CLINICAL | | HISTORY: FOLLOW UP FUSION. COMPARISON: 05/25/2010 FINDINGS: Anterior compression | | plate and screws are present across C5-6. Interbody bone graft appears entirely | | incorporated, with firm fusion across the disk interspace. Alignment through the fused | | segment and above is normal. At the segment below, C6-7, there is disk space narrowing | | and endplate sclerotic change similar to prior. Alignment at that level also remains | | normal. No other adjacent abnormalities are seen. IMPRESSION: 1. PRIOR ANTERIOR | | CERVICAL DISKECTOMY AND FUSION THROUGH C5-6. DEGENERATIVE CHANGES AT THE LEVEL BELOW, | | WITHOUT OTHER ADJACENT ABNORMALITY. Dictated Date/Time: 07/27/2011 15:14Transcribed | | Date/Time: 07/27/2011 15:26Transcriptionist: <Electronically Signed by Mando Duncan | | MD Celia> 08/02/11 [id number] | |rs entirely incorporated, with firm fusion across the disk interspace. Alignment through t he fused s | |egment and above is normal. At the segment below, C6-7, there is disk space narrowing and endplate s | |clerotic change similar to prior. Alignment at that level also remains normal. No other a djacent ab | |normalities are seen. | | | |IMPRESSION: | |1. PRIOR ANTERIOR CERVICAL DISKECTOMY AND FUSION THROUGH C5-6. DEGENERATIVE CHANGES AT TH E LEVEL BE | |LOW, WITHOUT OTHER ADJACENT ABNORMALITY. | | | |Dictated Date/Time: 07/27/2011 15:14 | |Transcribed Date/Time: 07/27/2011 15:26 | |Apron Cleaner: | |<Electronically Signed by Mando Yang MD> 08/02/11 1652 | + + + +---------+ + + | Performing | Address | City/State/Zipcode | Phone Number | | Organization | | | | + +---------+ + + | [facility] | | | | | [facility] | | | | + +---------+ + + documented in this encounter Visit Diagnoses Not on filedocumented in this encounter"
--- OUTSIDE RECORDS SUMMARY | ~2019-07-17 | XMS | Encounter Summary ---
Demographics + + + | Address | [address] | | | [place] [address] | + + + | Home Phone | | + + + | Preferred Language | Unknown | + + + | Marital Status | | + + + | Mormon Affiliation | Unknown | + + + | Race | Unknown | + + + | Ethnic Group | Unknown | + + + Author + + + | Author | [facility] | | | and [place] | + + + | Organization | [facility] | | | and [place] | + + + | Address | Unknown | + + + | Phone | Unavailable | + + + Support + + + + + | Name | Relationship | Address | Phone | + + + + + | Veronica Anderson | ECON | [place] | | | | | [address] | | + + + + + | Beatrice Paulson | ECON | [address] | | | | | [place] | | | | | [address] | | + + + + + Care Team Providers + +------+ + | Care Airline Managerial Supervisor Name | Role | Phone | + +------+ + | Venkata Pettit MD | PCP | | + +------+ + Reason for Visit +--------+ + | Reason | Comments | +--------+ + | Other | HIP PAIN | +--------+ + Encounter Details +--------+ + + + + | Date | Type | Department | Care Team | Description | +--------+ + + + + | 02/17/ | Telephone | [facility] | Wilton Smith, | Other (HIP PAIN ) | | 2013 | | NEUROSURGERY [address] | DO [address] | | | | | [address] [facility] [address] | [address], [place] | | | | | [place], [place] | [phone] | | | | | [address] | | | | | | [phone] | | | +--------+ + + + [...] | | | | | [facility] | | | | | | [place] | | | | | | [address] | | | | | | | | +--------+---------+ + + + documented as of this encounter Visit Diagnoses Not on filedocumented in this encounter"
--- OUTSIDE RECORDS SUMMARY | ~2019-07-17 | XMS | Encounter Summary ---
Demographics + + + | Address | [address] | | | [place] [address] | + + + | Home Phone [...] [place] | | | | | [address] | | + + + + + | Beatrice Paulson | ECON | [address] | | | | | [place] | | | | | [address] | | + + + + + Care Team Providers + +------+ + | Care J2Ee Android Developer Name | Role | Phone | [...] | | | | | encounter | [place] | [place] | | | | | | [address] | [address] | | | | | | Phone: | Phone: | | | | | | [phone] | [phone] | | | | | | Fax: | Fax: | | | | | | [phone] | [phone] | +--------+ + + + + + [...] | | | | | sm ([facility]) | | | | | | | Essential | | | | | | | hypertension | | | | | | | Chronic | | | | | | | atrial | | | | | | | fibrillation | | | | | | | ([facility]) | | | | | | | Decreased | | | | | | | hemoglobin | | | | | | | Pseudoaneury | | | | | | | sm following | | | | | | | procedure | | | | | | | ([facility]) | | | | | | | [...] + + | 04/03/ | Hospital | [facility] | Reji Coates | Bleeding (Primary | | 2019 - | Encounter | [facility] | MD [address] | Dx); Pseudoaneurysm | | | | [address] | [place], | ([facility]); Decreased | | 04/10/ | | [place] | [place] [address] | hemoglobin; Chronic | | 2019 | | [address] | [phone] | atrial fibrillation | | | | [phone] | | ([facility]); Essential | | | | | Jordan Bhakta MD | hypertension; Acute | | | | | [address] | blood loss anemia; | | | | | [place] [address] | Hematoma of left | | | | | [phone] | thigh, initial | | | | | | encounter; | | | | | Amanda Villatoro MD | Pseudoaneurysm | | | | | [address] | following procedure | | | | | [place] [address] | ([facility]); Paroxysmal | | | | | [phone] | atrial fibrillation | | | | | | ([facility]); Hematoma of | | | | | Dain Loya MD | left thigh, | | | | | [address] | subsequent | | | | | [place] [address] | encounter; | | | | | [phone] | Persistent atrial | | | | | | fibrillation (HCC) | | | | | Richard Buchanan MD | | | | | | [address] | | | | | | [place] [address] | | | | | | [phone] | | | | | | | [...] Buchanan MD - 04/10/2019 8:50 AM PST [facility] Service: Hospitalist Discharge Summary Date of Admission: [...] 49* 48* Radiology No results found. Disposition: fci Condition: Fair Code Status: Full Code Discharge Procedure Orders Ambulatory Referral to [facility] Surgery Referral Priority: Routine Referral Type: Evaluate & Treat Referral Reason: Specialty Services Required Referred to Provider: KYLE LOPEZ Requested Specialty: Vascular Surgery Number of Visits Requested: 1 Follow up: Elvin Jamil MD [address] [facility] [id number] On 05/04/2019 Parvez Vail MD [address] [facility] [address] In 1 week [facility] [address] [facility] [address] Breana Mullen DO [address] [id number] In 2 weeks Discharge Medications New Medications [...] Colbert MD - 04/09/2019 3:16 PM PST [facility] Service: Hospitalist Discharge Summary Date of Admission: [...] hours. No results for input(s): PHART, PO2ART, PFC6EHU, Y7STSUWZ, BEART in the last 168 hours. Recent Labs Lab 04/09/1941704/08/1942004/07/19 0534 INR 1.2 1.1 1.1 PTT 33* 49* 48* No results for input(s): TSH in the last 168 hours. Invalid input(s): T3FREE, FREET4 No results for input(s): TROPONINT in the last 168 hours. Invalid input(s): CKTOTAL, TROPONINI, CKMBINDEX Radiology No results found. Disposition: fci Condition: Fair Code Status: Full Code No discharge procedures on file. Follow up: Elvin Jamil MD [address] [place] [id number] On 05/04/2019 Parvez Vail MD [address] [facility] [address] In 1 week [facility] [address] [facility] [address] Discharge Medications New Medications Details [...] 3:26 PM PSTPatient's discharge was delayed because [facility] did not have an opening today patient will be discharged to [facility] if she is medically stable. Received a call from Dr. Peters who advised to pack RBC transfusion to get a hemoglobin c lose to 9. roctShekhar hale, [facility] - 04/09/2019 2:45 PM PSTFormatting of this [...] fib post ablati on s/p DCCV with faith of SR. Patient awake and alert seated [...] with the findings and plan of the [facility] practice provider/house staff with further assessment and [...] Dain Colbert MD - 2:17 PM PST [facility]: Hospitalist Progress Note Hospital Day: LOS: [...] hours. No results for input(s): PHART, PO2ART, AXN8HKK, [id number], BEART in the last 168 hours. Recent [...] LEFT (04/03/2019); LOWER EXTREMITY ANY JOINT (03/04/2009); [place] OCEDURE: Thin section axial images through the [...] Loya MD 04/08/2019 2:17 PM Iris Leon, [facility] - 04/08/2019 1:07 PM PSTFormatting of this [...] modify therapy as indicated. Kizzy Thayer, PharmD, [facility] 04/08/19 1:02 PM Wen Barragan RN - 04/08/2019 11:55 AM PST [facility] Service: Wound Care NPWT Note Hospital Day: [...] Kumar DO - 04/08/2019 10:27 AM PST [facility] Progress Note Primary Care Physician: Parvez [...] plan to follow up in [facility] in 2 weeks or sooner [...] in dextrose 100 units/mL infusion 12 Units/kg/hr ([place]) Intravenous Continuou s Breana Mullen DO 10.2 [...] mg Oral Daily - Warfarin Hany Nugent [facility] 5 mg a vida 04/07/19 1732 warfarin [...] 04/07 with successful and thus far maintained faith of sinus rhythm - converted to oral [...] with the findings and plan of the [facility] practice provider/house staff with further assessment and [...] Mullen DO - 04/07/2019 8:00 PM PST [facility] Progress Note Primary Care Physician: Parvez [...] Patient has been stable on home regimen 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 [facility] Service: Hospitalist Progress Note Hospital Day: LOS: [...] hours. No results for input(s): PHART, PO2ART, YTJ4FBX, K1IXFHVK, BEART in the last 168 hours. Recent [...] LEFT (04/03/2019); LOWER EXTREMITY ANY JOINT (03/04/2009); [place] OCEDURE: Thin section axial images through the [...] might be different from the ban cabezas. [facility]: Wound Care NPWT Note Hospital Day: [...] MD - 04/06/2019 1:40 PM PST . [facility]: Hospitalist Progress Note Hospital Day: LOS: 3 days SUBJECTIVE Patient Summary: Events Overnight: Patient reports left thigh pain. Denies any chest pain shortness of breath nausea vomiting. Overnight went into A. fib. Feels constipated. Scheduled Medications atenolol 50 mg Oral Daily cholecalciferol 4,000 Units Oral Daily cyanocobalamin 500 mcg Oral Daily docusate-senna 2 tablet Oral BID mineral rth-jqrfggeh-bpznq (HOG) enema Rectal Once lidocaine 10 mL [...] hours. No results for input(s): PHART, PO2ART, BUD7EBA, S4JNMAPG, BEART in the last 168 hours. Recent [...] LEFT (04/03/2019); LOWER EXTREMITY ANY JOINT (03/04/2009); [place] OCEDURE: Thin section axial images through the [...] Code Dain Loya MD 04/06/2019 1:40 PM [facility], [facility] - 04/06/2019 11:41 AM PSTFormatting of this [...] HOSPITAL 04/06/19 11:41 AM Breana Kumar I, DO - 04/06/2019 11:37 AM PST . [facility] Progress Note Primary Care Physician: Parvez [...] might be different from t he original. [facility] Progress Note Primary Care Physician: Parvez [...] Colbert MD - 04/05/2019 12:54 PM PST [facility]: Hospitalist Progress Note Hospital Day: LOS: [...] hours. No results for input(s): PHART, PO2ART, NHQ0KGJ, L9BVZUBP, BEART in the last 168 hours. Recent [...] LEFT (04/03/2019); LOWER EXTREMITY ANY JOINT (03/04/2009); [place] OCEDURE: Thin section axial images through the [...] might be different from the or iginal. [facility]: Hospitalist Progress Note Hospital Day: LOS: [...] hours. No results for input(s): PHART, PO2ART, YWH9VST, E9SCCKFF, BEART in the last 168 hours. Recent [...] LEFT (04/03/2019); LOWER EXTREMITY ANY JOINT (03/04/2009); [place] OCEDURE: Thin section axial images through the [...] Will continue to monitor. Rosemary Carrero RN roctorVal [facility] - 04/03/2019 8:25 PM PSTClinical Pharmacy Note: [...] [address] | | | | | | [facility] | | | | | | [place] | | | | | | [address] | | | | | | | [...] left | Ordered: 04/09/2019 | | to [facility] | Referral | e | thigh, [...] | | | | | performed at [facility] | | | | | | [address];[place], [place] | | | | | | [address] | | | | + + + + + + + + | Specimen | + + | Blood | + + + + + + + | Performing | Address | City/State/Zipcode | Phone Number | | Organization | | | | + + + + + | [facility] | [address] | [place] [address] | [phone] | + + + + + Phosphorus (04/10/2019 5:19 AM PST) + + + + + + | Component | Value | Ref Range | Performed | Pathologist | | | | | At | Signature | + + + + + + | Phosphorus | 3.6Comment: Testing | 2.3 - 4.8 mg/dL | [facility] | | | | performed at [facility], [address] | | LABORATORY | | | | [address], | | | | | | [place] [address] | | | | + + + + + + + + | Specimen | + + | Blood | + + + + + + + | Performing | Address | City/State/Zipcode | Phone Number | | Organization | | | | + + + + + | [facility] | [address] | [place] [address] | [phone] | + + + + + Comprehensive [...] | >60Comment: GFR <60: | >60 | [facility] | | | GFR | CHRONIC KIDNEY [...] | | | | | | MDRD IDMD traceable | | | | | | equation.Testing | | | | | | performed at [facility], [address] | | | | | | [facility], | | | | | | [place] [address] | | | | + + + + + + + + | Specimen | + + | Blood | + + + + + + + | Performing | Address | City/State/Zipcode | Phone Number | | Organization | | | | + + + + + | [facility] | [address] | [place] [address] | [phone] | + + + + + CBC [...] 0.02Comment: Testing | 0.00 - 0.10 | [facility] | | | Absolute | performed at [facility], [address] | K[address] | LABORATORY | | | | [address], | | | | | | [place] [address] | | | | + + + + + + + + | Specimen | + + | Blood | + + + + + + + | Performing | Address | City/State/Zipcode | Phone Number | | Organization | | | | + + + + + | [facility] | [address] | [place] [address] | [phone] | + + + + + Red [...] BANK | Testing performed at | | [facility] | | | COMMENT | [facility];[address] | | LABORATORY | | | | [place] [address] | | | | + + + + + + + + | Specimen | + + | | + + + + + + + | Performing | Address | City/State/Zipcode | Phone Number | | Organization | | | | + + + + + | [facility] | [address] | [place] [address] | [phone] | + + + + + Type [...] + + + | BB [facility] | [id number] | | [facility] | | | | | | LABORATORY | | + + + + + + | BB BAND | Testing performed at | | [facility] | | | | [place];[address] | LABORATORY | | | | [address];[place] [address] | | | | + + + + + + | UNIT # | [id number] | | [facility] | | | | [...] + + + | UNIT # | [id number] | | [facility] | | | | [...] | + + + + + | [facility] | [address] | [place] [address] | [phone] | + + + + + Protime INR (04/09/2019 4:18 AM PST) + + + + + + | Component | Value | Ref Range | Performed | Pathologist | | | | | At | Signature | + + + + + + | INR | 1.2Comment: REFERENCE | | [facility] | | | | RANGE:0.9 - 1.2 [...] | | | | | performed at [facility];[address] | | | | | | [address];[place] | | | | | | [address] | | | | + + + + + + + + | Specimen | + + | Blood | + + + + + + + | Performing | Address | City/State/Zipcode | Phone Number | | Organization | | | | + + + + + | [facility] | [address] | [place] [address] | [phone] | + + + + + Phosphorus (04/09/2019 4:18 AM PST) + + + + + + | Component | Value | Ref Range | Performed | Pathologist | | | | | At | Signature | + + + + + + | Phosphorus | 4.0Comment: Testing | 2.3 - 4.8 mg/dL | [facility] | | | | performed at [facility];[address] | | LABORATORY | | | | [address];[place] | | | | | | [address] | | | | + + + + + + + + | Specimen | + + | Blood | + + + + + + + | Performing | Address | City/State/Zipcode | Phone Number | | Organization | | | | + + + + + | [facility] | [address] | [place] [address] | [phone] | + + + + + Comprehensive [...] | | | | | performed at [facility];[address] | | | | | | [address];[place] | | | | | | [address] | | | | + + + + + + + + | Specimen | + + | Blood | + + + + + + + | Performing | Address | City/State/Zipcode | Phone Number | | Organization | | | | + + + + + | [facility] | [address] | [place] [address] | [phone] | + + + + + CBC [...] | | | Absolute | performed at [facility];[address] | [address] | LABORATORY | | | | [address];[place] | | | | | | [address] | | | | + + + + + + + + | Specimen | + + | Blood | + + + + + + + | Performing | Address | City/State/Zipcode | Phone Number | | Organization | | | | + + + + + | [facility] | [address] | [place] [address] | [phone] | + + + + + PTT (04/09/2019 4:18 AM PST) + + + + + + | Component | Value | Ref Range | Performed | Pathologist | | | | | At | Signature | + + + + + + | PTT | 33 (H)Comment: Testing | 23 - 32 seconds | [facility] | | | | performed at [facility];[address] | | LABORATORY | | | | [address];[place], [place] | | | | | | [address] | | | | + + + + + + + + | Specimen | + + | Blood | + + + + + + + | Performing | Address | City/State/Zipcode | Phone Number | | Organization | | | | + + + + + | [facility] | [address] | [place] [address] | [phone] | + + + + + Protime [...] | | | | | performed at [facility] | | | | | | [address];[place], [place] | | | | | | [address] | | | | + + + + + + + + | Specimen | + + | Blood | + + + + + + + | Performing | Address | City/State/Zipcode | Phone Number | | Organization | | | | + + + + + | [facility] | [address] | [place] [address] | [phone] | + + + + + Phosphorus (04/08/2019 4:21 AM PST) + + + + + + | Component | Value | Ref Range | Performed | Pathologist | | | | | At | Signature | + + + + + + | Phosphorus | 3.5Comment: Testing | 2.3 - 4.8 mg/dL | [facility] | | | | performed at [facility];[address] | | LABORATORY | | | | [address];[place] | | | | | | [address] | | | | + + + + + + + + | Specimen | + + | Blood | + + + + + + + | Performing | Address | City/State/Zipcode | Phone Number | | Organization | | | | + + + + + | [facility] | [address] | [place] [address] | [phone] | + + + + + Comprehensive [...] 17 | 10 - 65 U/L | [facility] | | | | | | LABORATORY [...] | | | | | performed at [facility];[address] | | | | | | [facility];[place], [place] | | | | | | [address] | | | | + + + + + + + + | Specimen | + + | Blood | + + + + + + + | Performing | Address | City/State/Zipcode | Phone Number | | Organization | | | | + + + + + | [facility] | [address] | [place] [address] | [phone] | + + + + + CBC [...] | | | Absolute | performed at [facility];[address] | [address] | LABORATORY | | | | [address];[place] | | | | | | [address] | | | | + + + + + + + + | Specimen | + + | Blood | + + + + + + + | Performing | Address | City/State/Zipcode | Phone Number | | Organization | | | | + + + + + | [facility] | [address] | [place] [address] | [phone] | + + + + + PTT (04/08/2019 4:21 AM PST) + + + + + + | Component | Value | Ref Range | Performed | Pathologist | | | | | At | Signature | + + + + + + | PTT | 49 (H)Comment: Testing | 23 - 32 seconds | [facility] | | | | performed at [facility];[address] | | LABORATORY | | | | [address];[place] | | | | | | [address] | | | | + + + + + + + + | Specimen | + + | Blood | + + + + + + + | Performing | Address | City/State/Zipcode | Phone Number | | Organization | | | | + + + + + | [facility] | [address] | [place] [address] | [phone] | + + + + + ECG [...] (500), | | | | | | pictures editor Dion Bueno | | | | [...] Testing | 2.3 - 4.8 mg/dL | [facility] | | | | performed at [facility], [address] | | LABORATORY | | | | [address], | | | | | | [place] [address] | | | | + + + + + + + + | Specimen | + + | Blood | + + + + + + + | Performing | Address | City/State/Zipcode | Phone Number | | Organization | | | | + + + + + | [facility] | [address] | [place] [address] | [phone] | + + + + + Comprehensive [...] | >60Comment: GFR <60: | >60 | [facility] | | | GFR | CHRONIC KIDNEY [...] | | | | | | MDRD IDMD traceable | | | | | | equation.Testing | | | | | | performed at [facility], [address] | | | | | | [facility], | | | | | | [place] [address] | | | | + + + + + + + + | Specimen | + + | Blood | + + + + + + + | Performing | Address | City/State/Zipcode | Phone Number | | Organization | | | | + + + + + | [facility] | [address] | [place] [address] | [phone] | + + + + + Magnesium (04/07/2019 7:02 AM PST) + + + + + + | Component | Value | Ref Range | Performed | Pathologist | | | | | At | Signature | + + + + + + | Magnesium | 2.3Comment: Testing | 1.7 - 2.4 mg/dL | [facility] | | | | performed at [facility], [address] | | LABORATORY | | | | [address], | | | | | | [place] [address] | | | | + + + + + + + + | Specimen | + + | Blood | + + + + + + + | Performing | Address | City/State/Zipcode | Phone Number | | Organization | | | | + + + + + | [facility] | [address] | [place] [address] | [phone] | + + + + + CBC [...] | | | Absolute | performed at [facility], [address] | K/uL | LABORATORY | | | | [facility], | | | | | | [place] [address] | | | | + + + + + + + + | Specimen | + + | Blood | + + + + + + + | Performing | Address | City/State/Zipcode | Phone Number | | Organization | | | | + + + + + | [facility] | [address] | [place] [address] | [phone] | + + + + + PTT (04/07/2019 5:34 AM PST) + + + + + + | Component | Value | Ref Range | Performed | Pathologist | | | | | At | Signature | + + + + + + | PTT | 48 (H)Comment: Testing | 23 - 32 seconds | [facility] | | | | performed at [facility];[address] | | LABORATORY | | | | [address];[place] | | | | | | [address] | | | | + + + + + + + + | Specimen | + + | Blood | + + + + + + + | Performing | Address | City/State/Zipcode | Phone Number | | Organization | | | | + + + + + | [facility] | [address] | [place] [address] | [phone] | + + + + + Protime [...] | | | | | performed at [facility];[address] | | | | | | [facility];[place], [place] | | | | | | [address] | | | | + + + + + + + + | Specimen | + + | Blood | + + + + + + + | Performing | Address | City/State/Zipcode | Phone Number | | Organization | | | | + + + + + | [facility] | [address] | [place] [address] | [phone] | + + + + + PTT (04/06/2019 9:03 PM PST) + + + + + + | Component | Value | Ref Range | Performed | Pathologist | | | | | At | Signature | + + + + + + | PTT | 48 (H)Comment: Testing | 23 - 32 seconds | [facility] | | | | performed at [facility];[address] | | LABORATORY | | | | [address];[place] | | | | | | [address] | | | | + + + + + + + + | Specimen | + + | Blood | + + + + + + + | Performing | Address | City/State/Zipcode | Phone Number | | Organization | | | | + + + + + | [facility] | [address] | [place] [address] | [phone] | + + + + + PTT (04/06/2019 3:15 PM PST) + + + + + + | Component | Value | Ref Range | Performed | Pathologist | | | | | At | Signature | + + + + + + | PTT | 48 (H)Comment: Testing | 23 - 32 seconds | [facility] | | | | performed at [facility];[address] | | LABORATORY | | | | [address];[place], [place] | | | | | | [address] | | | | + + + + + + + + | Specimen | + + | Blood | + + + + + + + | Performing | Address | City/State/Zipcode | Phone Number | | Organization | | | | + + + + + | [facility] | [address] | [place] [address] | [phone] | + + + + + PTT (04/06/2019 10:25 AM PST) + + + + + + | Component | Value | Ref Range | Performed | Pathologist | | | | | At | Signature | + + + + + + | PTT | 40 (H)Comment: Testing | 23 - 32 seconds | [facility] | | | | performed at [facility];[address] | | LABORATORY | | | | [address];[place], [place] | | | | | | [address] | | | | + + + + + + + + | Specimen | + + | Blood | + + + + + + + | Performing | Address | City/State/Zipcode | Phone Number | | Organization | | | | + + + + + | [facility] | [address] | [place] [address] | [phone] | + + + + + ECG [...] (500), | | | | | | pictures editor Destini Moy | | | | [...] [facility] | | | | performed at [facility];[address] | | LABORATORY | | | | [address];[place] | | | | | | [address] | | | | + + + + + + + + | Specimen | + + | | + + + + + + + | Performing | Address | City/State/Zipcode | Phone Number | | Organization | | | | + + + + + | [facility] | [address] | [place] [address] | [phone] | + + + + + Protime [...] | | | | | performed at [facility];[address] | | | | | | [address] [facility];[place], [place] | | | | | | [address] | | | | + + + + + + + + | Specimen | + + | Blood | + + + + + + + | Performing | Address | City/State/Zipcode | Phone Number | | Organization | | | | + + + + + | [facility] | [address] | [place] [address] | [phone] | + + + + + Phosphorus (04/06/2019 4:13 AM PST) + + + + + + | Component | Value | Ref Range | Performed | Pathologist | | | | | At | Signature | + + + + + + | Phosphorus | 2.7Comment: Testing | 2.3 - 4.8 mg/dL | [facility] | | | | performed at [facility];[address] | | LABORATORY | | | | [address];[place] | | | | | | [address] | | | | + + + + + + + + | Specimen | + + | Blood | + + + + + + + | Performing | Address | City/State/Zipcode | Phone Number | | Organization | | | | + + + + + | [facility] | [address] | [place] [address] | [phone] | + + + + + Comprehensive [...] | >60Comment: GFR <60: | >60 | [facility] | | | GFR | CHRONIC KIDNEY [...] | | | | | performed at [facility] | | | | | | [facility];[place], [place] | | | | | | [address] | | | | + + + + + + + + | Specimen | + + | Blood | + + + + + + + | Performing | Address | City/State/Zipcode | Phone Number | | Organization | | | | + + + + + | [facility] | [address] | [place] [address] | [phone] | + + + + + CBC [...] | | | Absolute | performed at [facility];[address] | K/uL | LABORATORY | | | | [address];[place], [place] | | | | | | [address] | | | | + + + + + + + + | Specimen | + + | Blood | + + + + + + + | Performing | Address | City/State/Zipcode | Phone Number | | Organization | | | | + + + + + | [facility] | [address] | [place] [address] | [phone] | + + + + + Magnesium (04/06/2019 4:13 AM PST) + + + + + + | Component | Value | Ref Range | Performed | Pathologist | | | | | At | Signature | + + + + + + | Magnesium | 1.9Comment: Testing | 1.7 - 2.4 mg/dL | [facility] | | | | performed at [facility];[address] | | LABORATORY | | | | [address];[place] | | | | | | [address] | | | | + + + + + + + + | Specimen | + + | Blood | + + + + + + + | Performing | Address | City/State/Zipcode | Phone Number | | Organization | | | | + + + + + | [facility] | [address] | [place] [address] | [phone] | + + + + + PTT (04/05/2019 10:01 PM PST) + + + + + + | Component | Value | Ref Range | Performed | Pathologist | | | | | At | Signature | + + + + + + | PTT | 41 (H)Comment: Testing | 23 - 32 seconds | [facility] | | | | performed at [facility];[address] | | LABORATORY | | | | [address];[place], [place] | | | | | | [address] | | | | + + + + + + + + | Specimen | + + | Blood | + + + + + + + | Performing | Address | City/State/Zipcode | Phone Number | | Organization | | | | + + + + + | [facility] | [address] | [place] [address] | [phone] | + + + + + PTT (04/05/2019 3:52 PM PST) + + + + + + | Component | Value | Ref Range | Performed | Pathologist | | | | | At | Signature | + + + + + + | PTT | 55 (H)Comment: Testing | 23 - 32 seconds | [facility] | | | | performed at [facility];[address] | | LABORATORY | | | | [address];[place], [place] | | | | | | [address] | | | | + + + + + + + + | Specimen | + + | Blood | + + + + + + + | Performing | Address | City/State/Zipcode | Phone Number | | Organization | | | | + + + + + | [facility] | [address] | [place] [address] | [phone] | + + + + + CBC [...] | 11.6Comment: NO NORMAL | fl | [facility] | | | | RANGE ESTABLISHEDTesting | | LABORATORY | | | | performed at [facility], [address] | | | [address] | [address], | | | | | | [place] [address] | | | | + + + + + + + + | Specimen | + + | Blood | + + + + + + + | Performing | Address | City/State/Zipcode | Phone Number | | Organization | | | | + + + + + | [facility] | [address] | [place] [address] | [phone] | + + + + + PTT (04/05/2019 8:28 AM PST) + + + + + + | Component | Value | Ref Range | Performed | Pathologist | | | | | At | Signature | + + + + + + | PTT | 66 (H)Comment: Testing | 23 - 32 seconds | [facility] | | | | performed at [facility];8 | | LABORATORY | | | | [address];[place], [place] | | | | | | [address] | | | | + + + + + + + + | Specimen | + + | Blood | + + + + + + + | Performing | Address | City/State/Zipcode | Phone Number | | Organization | | | | + + + + + | [facility] | [address] | [place] [address] | [phone] | + + + + + CBC [...] | | LABORATORY | | | | [facility], [address] | | | | | | [place] | | | | | | [address] | | | | + + + + + + + + | Specimen | + + | Blood | + + + + + + + | Performing | Address | City/State/Zipcode | Phone Number | | Organization | | | | + + + + + | [facility] | [address] | [place] [address] | [phone] | + + + + + Phosphorus (04/05/2019 2:18 AM PST) + + + + + + | Component | Value | Ref Range | Performed | Pathologist | | | | | At | Signature | + + + + + + | Phosphorus | 3.1Comment: Testing | 2.3 - 4.8 mg/dL | [facility] | | | | performed at [facility];[address] | | LABORATORY | | | | [address];[place], [place] | | | | | | [address] | | | | + + + + + + + + | Specimen | + + | Blood | + + + + + + + | Performing | Address | City/State/Zipcode | Phone Number | | Organization | | | | + + + + + | [facility] | [address] | [place] [address] | [phone] | + + + + + Comprehensive [...] | | | | | performed at [facility];[address] | | | | | | [facility];[place], [place] | | | | | | [address] | | | | + + + + + + + + | Specimen | + + | Blood | + + + + + + + | Performing | Address | City/State/Zipcode | Phone Number | | Organization | | | | + + + + + | [facility] | [address] [facility] | [place] [address] | [phone] | + + + + + CBC [...] | | | Absolute | performed at [facility];[address] | K/uL | LABORATORY | | | | [address];[place], [place] | | | | | | [address] | | | | + + + + + + + + | Specimen | + + | Blood | + + + + + + + | Performing | Address | City/State/Zipcode | Phone Number | | Organization | | | | + + + + + | [facility] | [address] | [place] [address] | [phone] | + + + + + PTT (04/05/2019 2:18 AM PST) + + + + + + | Component | Value | Ref Range | Performed | Pathologist | | | | | At | Signature | + + + + + + | PTT | 45 (H)Comment: Testing | 23 - 32 seconds | [facility] | | | | performed at [facility];[address] | | LABORATORY | | | | [address];[place] | | | | | | [address] | | | | + + + + + + + + | Specimen | + + | Blood | + + + + + + + | Performing | Address | City/State/Zipcode | Phone Number | | Organization | | | | + + + + + | [facility] | [address] | [place] [address] | [phone] | + + + + + Vitamin B-12 (04/05/2019 2:18 AM PST) + + + + + + | Component | Value | Ref Range | Performed | Pathologist | | | | | At | Signature | + + + + + + | VITAMIN | 747Comment: Testing | 254 - 1,320 | [facility] | | | B-12 | performed at [facility], [address] | pg/mL | LABORATORY | | | | [address], | | | | | | [place] [address] | | | | + + + + + + + + | Specimen | + + | Blood | + + + + + + + | Performing | Address | City/State/Zipcode | Phone Number | | Organization | | | | + + + + + | [facility] | [address] | [place] [address] | [phone] | + + + + + Retic [...] | | | Reticulocyt | performed at [facility];[address] | | LABORATORY | | | e Count | [address];[place] | | | | | | [address] | | | | + + + + + + + + | Specimen | + + | Blood | + + + + + + + | Performing | Address | City/State/Zipcode | Phone Number | | Organization | | | | + + + + + | [facility] | [address] | [place] [address] | [phone] | + + + + + Iron [...] | | | | | [place] [address] | | | | + + + + + + + + | Specimen | + + | Blood | + + + + + + + | Performing | Address | City/State/Zipcode | Phone Number | | Organization | | | | + + + + + | [facility] | [address] | [place] [address] | [phone] | + + + + + Folate (04/05/2019 2:18 AM PST) + + + + + + | Component | Value | Ref Range | Performed | Pathologist | | | | | At | Signature | + + + + + + | FOLATE | 16.6Comment: Testing | >5.4 ng/mL | [facility] | | | | performed at [facility], [address] | | LABORATORY | | | | [address], | | | | | | [place] [address] | | | | + + + + + + + + | Specimen | + + | Blood | + + + + + + + | Performing | Address | City/State/Zipcode | Phone Number | | Organization | | | | + + + + + | [facility] | [address] | [place] [address] | [phone] | + + + + + Ferritin (04/05/2019 2:18 AM PST) + + + + + + | Component | Value | Ref Range | Performed | Pathologist | | | | | At | Signature | + + + + + + | Ferritin | 193 (H)Comment: Testing | 6 - 170 ng/mL | [facility] | | | | performed at [facility], [address] | | LABORATORY | | | | [address], | | | | | | [place] [address] | | | | + + + + + + + + | Specimen | + + | Blood | + + + + + + + | Performing | Address | City/State/Zipcode | Phone Number | | Organization | | | | + + + + + | [facility] | [address] | [place] [address] | [phone] | + + + + + Magnesium (04/05/2019 2:18 AM PST) + + + + + + | Component | Value | Ref Range | Performed | Pathologist | | | | | At | Signature | + + + + + + | Magnesium | 1.7Comment: Testing | 1.7 - 2.4 mg/dL | [facility] | | | | performed at [facility];[address] | | LABORATORY | | | | [address];[place] | | | | | | [address] | | | | + + + + + + + + | Specimen | + + | Blood | + + + + + + + | Performing | Address | City/State/Zipcode | Phone Number | | Organization | | | | + + + + + | [facility] | [address] | [place] [address] | [phone] | + + + + + CBC [...] LABORATORY | | | | performed at [facility];[address] | | | | | | [address];[place], [place] | | | | | | [address] | | | | + + + + + + + + | Specimen | + + | Blood | + + + + + + + | Performing | Address | City/State/Zipcode | Phone Number | | Organization | | | | + + + + + | [facility] | [address] | [place] [address] | [phone] | + + + + + PTT (04/04/2019 6:42 PM PST) + + + + + + | Component | Value | Ref Range | Performed | Pathologist | | | | | At | Signature | + + + + + + | PTT | 33 (H)Comment: Testing | 23 - 32 seconds | [facility] | | | | performed at [facility];[address] | | LABORATORY | | | | [address];[place] | | | | | | [address] | | | | + + + + + + + + | Specimen | + + | Blood | + + + + + + + | Performing | Address | City/State/Zipcode | Phone Number | | Organization | | | | + + + + + | [facility] | [address] | [place] [address] | [phone] | + + + + + CBC [...] LABORATORY | | | | performed at [facility];[address] | | | | | | [address];[place] | | | | | | [address] | | | | + + + + + + + + | Specimen | + + | Blood | + + + + + + + | Performing | Address | City/State/Zipcode | Phone Number | | Organization | | | | + + + + + | [facility] | [address] | [place] [address] | [phone] | + + + + + CBC [...] LABORATORY | | | | performed at [facility];[address] | | | | | | [address];[place] | | | | | | [address] | | | | + + + + + + + + | Specimen | + + | Blood | + + + + + + + | Performing | Address | City/State/Zipcode | Phone Number | | Organization | | | | + + + + + | [facility] | [address] | [place] [address] | [phone] | + + + + + PTT (04/04/2019 12:36 PM PST) + + + + + + | Component | Value | Ref Range | Performed | Pathologist | | | | | At | Signature | + + + + + + | PTT | 54 (H)Comment: Testing | 23 - 32 seconds | [facility] | | | | performed at [facility];[address] | | LABORATORY | | | | [address];[place] | | | | | | [address] | | | | + + + + + + + + | Specimen | + + | Blood | + + + + + + + | Performing | Address | City/State/Zipcode | Phone Number | | Organization | | | | + + + + + | [facility] | [address] [facility] | [place] [address] | [phone] | + + + + + Magnesium (04/04/2019 11:52 AM PST) + + + + + + | Component | Value | Ref Range | Performed | Pathologist | | | | | At | Signature | + + + + + + | Magnesium | 1.9Comment: Testing | 1.7 - 2.4 mg/dL | [facility] | | | | performed at [facility];[address] | | LABORATORY | | | | [address];[place], [place] | | | | | | [address] | | | | + + + + + + + + | Specimen | + + | | + + + + + + + | Performing | Address | City/State/Zipcode | Phone Number | | Organization | | | | + + + + + | [facility] | [address] | [place] [address] | [phone] | + + + + + Comprehensive [...] | | | | | performed at [facility];[address] | | | | | | [address] [facility];[place], [place] | | | | | | [address] | | | | + + + + + + + + | Specimen | + + | | + + + + + + + | Performing | Address | City/State/Zipcode | Phone Number | | Organization | | | | + + + + + | [facility] | [address] [facility] | [place] [address] | [phone] | + + + + + CBC [...] LABORATORY | | | | performed at [facility] | | | | | | [address] [facility];[place], [place] | | | | | | [address] | | | | + + + + + + + + | Specimen | + + | Blood | + + + + + + + | Performing | Address | City/State/Zipcode | Phone Number | | Organization | | | | + + + + + | [facility] | [address] | [place] [address] | [phone] | + + + + + Red [...] | [facility] | | | COMMENT | [facility];[address] [facility] | | LABORATORY | | | | [address];[place] [address] | | | | + + + + + + + + | Specimen | + + | | + + + + + + + | Performing | Address | City/State/Zipcode | Phone Number | | Organization | | | | + + + + + | [facility] | [address] | [place] [address] | [phone] | + + + + + CBC [...] LABORATORY | | | | performed at [facility];[address] | | | | | | [address];[place] | | | | | | [address] | | | | + + + + + + + + | Specimen | + + | Blood | + + + + + + + | Performing | Address | City/State/Zipcode | Phone Number | | Organization | | | | + + + + + | [facility] | [address] | [place] [address] | [phone] | + + + + + Marthaime [...] | | | | | performed at [facility];[address] | | | | | | [address];[place], [place] | | | | | | [address] | | | | + + + + + + + + | Specimen | + + | Blood | + + + + + + + | Performing | Address | City/State/Zipcode | Phone Number | | Organization | | | | + + + + + | [facility] | [address] | [place] [address] | [phone] | + + + + + Iron, Total (04/03/2019 10:45 PM PST) + + + + + + | Component | Value | Ref Range | Performed | Pathologist | | | | | At | Signature | + + + + + + | Iron | 47Comment: Testing | 30 - 180 ug/dL | [facility] | | | | performed at [facility], [address] | | LABORATORY | | | | [address], | | | | | | [place] [address] | | | | + + + + + + + + | Specimen | + + | Blood | + + + + + + + | Performing | Address | City/State/Zipcode | Phone Number | | Organization | | | | + + + + + | [facility] | [address] | [place] [address] | [phone] | + + + + + CBC [...] LABORATORY | | | | performed at [facility];[address] | | | | | | [address];[place], [place] | | | | | | [address] | | | | + + + + + + + + | Specimen | + + | Blood | + + + + + + + | Performing | Address | City/State/Zipcode | Phone Number | | Organization | | | | + + + + + | [facility] | [address] | [place] [address] | [phone] | + + + + + Troponin I (04/03/2019 7:45 PM PST) + + + + + + | Component | Value | Ref Range | Performed | Pathologist | | | | | At | Signature | + + + + + + | Troponin I | 1.186 ()Comment: | 0.00 - 0.04 | [facility] | | | | 0.04 ng/mL or [...] | | | | | performed at [facility];[address] | | | | | | [address] [facility];[place], [place] | | | | | | [address] | | | | + + + + + + + + | Specimen | + + | | + + + + + + + | Performing | Address | City/State/Zipcode | Phone Number | | Organization | | | | + + + + + | [facility] | [address] | [place] [address] | [phone] | + + + + + CBC [...] LABORATORY | | | | performed at [facility];[address] | | | | | | [address];[place] | | | | | | [address] | | | | + + + + + + + + | Specimen | + + | Blood | + + + + + + + | Performing | Address | City/State/Zipcode | Phone Number | | Organization | | | | + + + + + | [facility] | [address] | [place] [address] | [phone] | + + + + + ECG [...] | | | | | ONLY, -COMPUTER (648), | | | | | | pictures editor Jocelynn Fry | | | | | | (75) on 04/06/2019 | | | | | [...] | | | | | COMMENT | [facility];[address] [place] [address] | | | | | | [address];[place] [address] | | | | + + + + + + + + | Specimen | + + | | + + + + + + + | Performing | Address | City/State/Zipcode | Phone Number | | Organization | | | | + + + + + | [facility] | [address] | [place] [address] | [phone] | + + + + + PRODUCT: [...] + + + | UNIT # | [id number] | | [facility] | | | | [...] + + + | UNIT # | [id number] | | [facility] | | | | [...] | | | Status | performed at [facility];[address] | | LABORATORY | | | | [address];[place] | | | | | | [address] | | | | + + + + + + + + | Specimen | + + | | + + + + + + + | Performing | Address | City/State/Zipcode | Phone Number | | Organization | | | | + + + + + | [facility] | [address] | [place] [address] | [phone] | + + + + + CBC [...] | | | Absolute | performed at [facility];[address] | [address]/uL | LABORATORY | | | | [address];[place] | | | | | | [address] | | | | + + + + + + + + | Specimen | + + | Blood | + + + + + + + | Performing | Address | City/State/Zipcode | Phone Number | | Organization | | | | + + + + + | [facility] | [address] | [place] [address] | [phone] | + + + + + Type [...] + + + | BB BAND | [id number] | | [facility] | | | | | | LABORATORY | | + + + + + + | UNIT # | [id number] | | [facility] | | | | [...] + + + | UNIT # | [id number] | | [facility] | | | | [...] + + + | UNIT # | [id number] | | [facility] | | | | [...] | | | RESULT | performed at [facility];[address] | | LABORATORY | | | | [address];[place] | | | | | | [address] | | | | + + + + + + | UNIT # | [id number] | | [facility] | | | | [...] [facility] | [address] | [place] [address] | [phone] | + + + + + POC [...] | | | POC | performed at [facility];[address] | | LABORATORY | | | | [address];[place], [place] | | | | | | [address] | | | | + + + + + + + + | Specimen | + + | | + + + + + + + | Performing | Address | City/State/Zipcode | Phone Number | | Organization | | | | + + + + + | [facility] | [address] | [place] [address] | [phone] | + + + + + CT [...] | | | | | Signed by: Fiatt, Hemant Monzon | | Sign Date/Time: 04/03/2019 [...] [facility] | | | | performed at [facility], [address] | | LABORATORY | | | | [address], | | | | | | [place] [address] | | | | + + + + + + + + | Specimen | + + | Blood | + + + + + + + | Performing | Address | City/State/Zipcode | Phone Number | | Organization | | | | + + + + + | [facility] | [address] | [place] [address] | [phone] | + + + + + Ferritin (04/03/2019 10:25 AM PST) + + + + + + | Component | Value | Ref Range | Performed | Pathologist | | | | | At | Signature | + + + + + + | Ferritin | 144Comment: Testing | 6 - 170 ng/mL | [facility] | | | | performed at [facility], [address] | | LABORATORY | | | | [address], | | | | | | [place] [address] | | | | + + + + + + + + | Specimen | + + | Blood | + + + + + + + | Performing | Address | City/State/Zipcode | Phone Number | | Organization | | | | + + + + + | [facility] | [address] | [place] [address] | [phone] | + + + + + Protime [...] | | | | | performed at [facility];[address] | | | | | | [address];[place], [place] | | | | | | [address] | | | | + + + + + + + + | Specimen | + + | | + + + + + + + | Performing | Address | City/State/Zipcode | Phone Number | | Organization | | | | + + + + + | [facility] | [address] | [place] [address] | [phone] | + + + + + Basic [...] | | | | | performed at [facility];[address] | | | | | | [address];[place], [place] | | | | | | [address] | | | | + + + + + + + + | Specimen | + + | Blood | + + + + + + + | Performing | Address | City/State/Zipcode | Phone Number | | Organization | | | | + + + + + | [facility] | [address] | [place] [address] | [phone] | + + + + + CBC [...] | | | Absolute | performed at [facility];[address] | [address] | LABORATORY | | | | [address];[place] | | | | | | [address] | | | | + + + + + + + + | Specimen | + + | Blood | + + + + + + + | Performing | Address | City/State/Zipcode | Phone Number | | Organization | | | | + + + + + | [facility] | [address] | [place] [address] | [phone] | + + + + + documented [...] | | | | | | longer, dlcenv-iql-iwnmk use of | | | | | [...] /hr | | | | 63.9 kg [place] weight (7.668 | | | | | [...] 10:10 | | | | | ONCE, [facility] 04/09/19 at 1030, For 1 | [...] | | | | | reorder) on [facility] 04/09/19 at 1800, | | | [...]
--- OUTSIDE RECORDS SUMMARY | ~2019-07-17 | XMS | Encounter Summary ---
Demographics + + + | Address | [address] | | | [place] [address] | + + + | Home Phone [...] [place] | | | | | [address] | | + + + + + | Beatrice Paulson | ECON | [address] | | | | | [place] | | | | | [address] | | + + + + + Care Team Providers + +------+ + | Care Nuclear Fuel Enrichment Technician Name | Role | Phone | [...] + + | 01/16/ | Telephone | [facility] | Justen Ribera | Other (Having pain) | | 2011 | | NEUROSURGERY [address] | [facility] [address] | | | | | [address] | [address] [place] | | | | | [place] | [address] | | | | | [address] | [phone] | | | | | [phone] | | | +--------+ + + + [...] [address] | | | | | | [facility] | | | | | | [place] | | | | | | [address] | | | | | | | | +--------+---------+ + + + documented as of this encounter Visit Diagnoses Not on filedocumented in this encounter"
--- OUTSIDE RECORDS SUMMARY | ~2019-07-17 | XMS | Encounter Summary ---
Demographics + + + | Address | [address] | | | [place] [address] | + + + | Home Phone | | + + + | Preferred Language | Unknown | + + + | Marital Status | | + + + | Sabianist Affiliation | Unknown | + + + | Race | Unknown | + + + | Ethnic Group | Unknown | + + + Author + + + | Author | [facility] | | | and [place] | + + + | Organization | [facility] | | | and [place] | + + + | Address | Unknown | + + + | Phone | Unavailable | + + + Support + + + + + | Name | Relationship | Address | Phone | + + + + + | Veronica Anderson | ECON | [place] | | | | | [address] | | + + + + + | Beatrice Paulson | ECON | [address] | | | | | [place] | | | | | [address] | | + + + + + Care Team Providers + +------+ + | Care Set Up Inspector Name | Role | Phone | + +------+ + | Venkata Pettit MD | PCP | | + +------+ + Encounter Details +--------+ + + + + | Date | Type | Department | Care Team | Description | +--------+ + + + + | 04/15/ | Hospital | [facility] | Wilton Smith, | Status post lumbar | | 2013 | Encounter | MED CTR XRAY [address] | DO [address] | spinal fusion | | | | [place] | [address] [place], [place] | | | | | [place] [address] | [id number] | | | | | [phone] | | | +--------+ + + + [...] | | | | [facility]ie [facility] | | | | | | [place] | | | | | | [address] | | | | | | | [...] Performed At | + + + | [facility] | [place] | | Department [address] [facility] [place] | [facility] | | [ rep ct [address]] [ rep [facility] | | st zip] Signed | - IMAGING | | | | | Patient Name: KASSIE BEAR Physician: | | | SYL. : 1940 Age: 72 Sex: F Unit #: [id number] | | | Exam Date: 04/15/13 [place] [facility] [place] | | Report #: [id number] Page: | | | %(RAD)RES..mtdd.print.filter("pg") of %(RAD) | | | RES..mtdd.print.filter("tpg") | | | | | | Accession Number: [id number] | | | LUMBAR SPINE LIMITED CLINICAL [...] Transcribed Date/Time: 04/15/2013 13:01 | | | Clay Temperer: <<Signature on File>> | | | | | | Mando Yang MD04/15/13 2996 <Electronically signed by Mando Duncan | | | Celia [place]> Mando Yang MD 04/15/13 8560 | | | Clay Temperer: [employer] Tdoeuquvpoili37/05/14 4202 | | | Wilton Smith DO | | + + + + + + + + | Performing | Address | City/State/Zipcode | Phone Number | | Organization | | | | + + + + + | [facility] | [address] | [place] | [phone] | | [facility] | | [address] | | | - IMAGING | | | | + + + + + documented in this encounter Visit Diagnoses + + | Diagnosis | + + | Status post lumbar spinal fusion Arthrodesis status | + + documented in this encounter
--- OUTSIDE RECORDS SUMMARY | ~2019-07-17 | XMS | Encounter Summary ---
Demographics + + + | Address | [address] | | | [place] [address] | + + + | Home Phone | | + + + | Preferred Language | Unknown | + + + | Marital Status | | + + + | Sikhism Affiliation [...] [place] | | | | | [address] | | + + + + + | Beatrice Paulson | ECON | [address] | | | | | [place] | | | | | [address] | | + + + + + Care Team Providers + +------+ + | Care Tetryl Dissolver Operator Name | Role | Phone | + +------+ + | Parvez Vail MD | PCP | | + +------+ + Encounter Details +--------+ + + + + | Date | Type | Department | Care Team | Description | +--------+ + + + + | 07/12/ | Orders Only | [facility] | Elvin Jamil | | | 2019 | | [place] | MD Re[address] | | | | | [address] | [facility] | | | | | [place], [place] | [place], [place] | | | | | [address] | [address] | | | | | [phone] | | | +--------+ + + + [...] [place] | | | | | | [address] | | | | | | | | +--------+---------+ + + + documented as of this encounter Visit Diagnoses Not on filedocumented in this encounter"
--- OUTSIDE RECORDS SUMMARY | ~2019-07-17 | XMS | Encounter Summary ---
Demographics + + + | Address | [address] | | | [place] [address] | + + + | Home Phone | | + + + | Preferred Language | Unknown | + + + | Marital Status | | + + + | Episcopalian Affiliation | Unknown | + + + [...] [place] | | | | | [address] | | + + + + + | Beatrice Paulson | ECON | [address] | | | | | [place] | | | | | [address] | | + + + + + Care Team Providers + +------+ + | Care Technical Support Consultant Name | Role | Phone | + +------+ + PCP | Unavailable | + +------+ + Encounter Details +--------+ + + + + | Date | Type | Department | Care Team | Description | +--------+ + + + + | 03/03/ | Hospital | [facility] | Olayinka Rothman | | | 2009 | Encounter | MED CTR XRAY [address] | T, [address] | | | | | [place] | ST [place], [place] | | | | | [place] [address] | [address] | | | | | [phone] | | | +--------+ + + + [...] Center | | | | | | [place] | | | | | | [address] | | | | | | | | +--------+---------+ + + + documented as of this encounter Visit Diagnoses Not on filedocumented in this encounter"
--- OUTSIDE RECORDS SUMMARY | ~2019-07-17 | XMS | Encounter Summary ---
Demographics + + + | Address | [address] | | | [place] [address] | + + + | Home Phone | | + + + | Preferred Language | Unknown | + + + | Marital Status | | + + + | Samaritan Affiliation | Unknown | + + + | Race | Unknown | + + + | Ethnic Group | Unknown | + + + Author + + + | Author | [facility] | | | and [place] | + + + | Organization | [facility] | | | and [place] | + + + | Address | Unknown | + + + | Phone | Unavailable | + + + Support + + + + + | Name | Relationship | Address | Phone | + + + + + | Veronica Anderson | ECON | [place] | | | | | [address] | | + + + + + | Beatrice Paulson | ECON | [address] | | | | | [place] | | | | | [address] | | + + + + + Care Team Providers + +------+ + | Care Fender Mechanic Name | Role | Phone | [...] | | | | fibrillation | | [place], [place] | | | | | (HCC) | | [address] Phone: | | | | | Procedures | | [phone] | | | | | SD CATH PLMT | | Fax: | | | | | L HRT & | | [phone] | | | | | ARTS W/NJX & | | | | | | | ANGIO IMG | | | | | | | S&I | | | +--------+--------+ + + + + Encounter Details +--------+ + + + + | Date | Type | Department | Care Team | Description | +--------+ + + + + | 12/22/ | Hospital | [facility] | Lori Recinos DO | Other persistent | | 2019 | Encounter | CENTER CV INTRA OP | [address] | atrial fibrillation | | | | [address] | [place], [place] | (HCC); Other | | | | [place], [place] | [address] | persistent atrial | | | | [address] | | fibrillation (HCC) | | | | [phone] | | | +--------+ + + + [...] issues from blood-thinning medicines Date Last Reviewed: 04/11/201619995692-3643 [employer] [place] [address], [place] [address]. All righ ts reserved. This information is [...] [address] | | | | | | [facility] | | | | | | F [place], [place] | | | | | | [address] | | | | | | | [...] the | | | | PST | ([facility]) | results section. | + +--------+ [...] | INR | 2.2Comment: REFERENCE | | [facility] | | | | RANGE:0.9 - [...] | | | | | performed at [facility] | | | | | | [facility];[place], [place] | | | | | | [address] | | | | + + + + + + + + | Specimen | + + | Blood | + + + + + + + | Performing | Address | City/State/Zipcode | Phone Number | | Organization | | | | + + + + + | [facility] | [address] | [place] [address] | [phone] | + + + + + Comprehensive [...] | | | | | performed at [facility];[address] | | | | | | [address];[place] | | | | | | [address] | | | | + + + + + + + + | Specimen | + + | Blood | + + + + + + + | Performing | Address | City/State/Zipcode | Phone Number | | Organization | | | | + + + + + | [facility] | [address] | [place] [address] | [phone] | + + + + + CBC [...] | | | Absolute | performed at [facility];[address] | K/uL | LABORATORY | | | | [address];[place], [place] | | | | | | [address] | | | | + + + + + + + + | Specimen | + + | Blood | + + + + + + + | Performing | Address | City/State/Zipcode | Phone Number | | Organization | | | | + + + + + | [facility] | [address] | [place] [address] | [phone] | + + + + + ECG [...]
--- OUTSIDE RECORDS SUMMARY | ~2019-07-17 | XMS | Encounter Summary ---
Demographics + + + | Address | [address] | | | [place] [address] | + + + | Home Phone [...] [place] | | | | | [address] | | + + + + + | Beatrice Paulson | ECON | [address] | | | | | [place] | | | | | [address] | | + + + + + Care Team Providers + +------+ + | Care Database Marketing Specialist Name | Role | Phone | [...] + + | 12/23/ | Refill | [facility] | Destini Espinoza | Medication Refill | | 2019 | | CARDIOLOGY FAUSTO Rubin Fibrous Plasterer | | | | | [address] | | | | | | [place], [place] | | | | | | [address] | | | | | | [phone] | | | +--------+--------+ + + + [...] [place] | | | | | | [address] | | | | | | | | +--------+---------+ + + + documented as of this encounter Visit Diagnoses Not on filedocumented in this encounter"
--- OUTSIDE RECORDS SUMMARY | ~2019-07-17 | XMS | Encounter Summary ---
Demographics + + + | Address | [address] | | | [place] [address] | + + + | Home Phone [...] [place] | | | | | [address] | | + + + + + | Beatrice Paulson | ECON | [address] | | | | | [place] | | | | | [address] | | + + + + + Care Team Providers + +------+ + | Care Comparison Shopper Name | Role | Phone | + +------+ + PCP | Unavailable | + +------+ + Encounter Details +--------+ + + + + | Date | Type | Department | Care Team | Description | +--------+ + + + + | 11/23/ | Hospital | [facility] | Justen Ribera | | | 2009 | Encounter | MED CTR XRAY [address] | F, [address] | | | | | [place] | [place], [place] | | | | | [place] [address] | [address] | | | | | [phone] | [phone] | | | | | | | [...] [place] | | | | | | [address] | | | | | | | | +--------+---------+ + + + documented as of this encounter Visit Diagnoses Not on filedocumented in this encounter"
--- OUTSIDE RECORDS SUMMARY | ~2019-07-17 | XMS | Encounter Summary ---
Demographics + + + | Address | [address] | | | [place] [address] | + + + | Home Phone | | + + + | Preferred Language | Unknown | + + + | Marital Status | | + + + | Anglican Affiliation | Unknown | + + + | Race | Unknown | + + + | Ethnic Group | Unknown | + + + Author + + + | Author | [facility] | | | and [place] | + + + | Organization | [facility] | | | and [place] | + + + | Address | Unknown | + + + | Phone | Unavailable | + + + Support + + + + + | Name | Relationship | Address | Phone | + + + + + | Veronica Anderson | ECON | [place] | | | | | [address] | | + + + + + | Beatrice Paulson | ECON | [address] | | | | | [place] | | | | | [address] | | + + + + + Care Team Providers + +------+ + | Care Skip Hoist Operator Name | Role | Phone | + +------+ + | Parvez Vail MD | PCP | | + +------+ + Encounter Details +--------+ + + + + | Date | Type | Department | Care Team | Description | +--------+ + + + + | 12/18/ | Orders Only | [facility] | Lori Recinos DO | Other persistent | | 2019 | | CARDIOLOGY QUILCENE | [address] | atrial fibrillation | | | | [address] | [place], [place] | ([facility]) (Primary Dx) | | | | [place], [place] | [address] | | | | | [address] | | | | | | [phone] | | | +--------+ + + + [...] [place] | | | | | | [address] | | | | | | | | +--------+---------+ + + + documented as of this encounter Visit Diagnoses + + | Diagnosis | + + | Other persistent atrial fibrillation (HCC) - Primary | + + documented in this encounter"
--- OUTSIDE RECORDS SUMMARY | ~2019-07-17 | XMS | Encounter Summary ---
Demographics + + + | Address | [address] | | | [place] [address] | + + + | Home Phone [...] [place] | | | | | [address] | | + + + + + | Beatrice Paulson | ECON | [address] | | | | | [place] | | | | | [address] | | + + + + + Care Team Providers + +------+ + | Care Application Programmer Analyst Name | Role | Phone | [...] + + | 01/21/ | Telephone | [facility] | Destini Espinoza | Other (Patient had a | | 2018 | | CARDIOLOGY FAUSTO Rubin, Geodetic Technician | leslie. ) | | | | [address] | | | | | | [place], [place] | | | | | | [address] | | | | | | [phone] | | | +--------+ + + + [...] [place] | | | | | | [address] | | | | | | | | +--------+---------+ + + + documented as of this encounter Visit Diagnoses Not on filedocumented in this encounter"
--- OUTSIDE RECORDS SUMMARY | ~2019-07-17 | XMS | Encounter Summary ---
Demographics + + + | Address | [address] | | | [place] [address] | + + + | Home Phone [...] [place] | | | | | [address] | | + + + + + | Beatrice Paulson | ECON | [address] | | | | | [place] | | | | | [address] | | + + + + + Care Team Providers + +------+ + | Care Marble Cleaner Name | Role | Phone | [...] lumbar | MD [address] | [address] | | | | | spinal | [address] | [address] [place] | | | | | fusion | [place], | [place], [place] | | | | | Bilateral | [place] [address] | [address] | | | | | leg weakness | Phone: | Phone: | | | | | Procedures | [phone] | [phone] | | | | | MRI Lumbar | [phone] Fax: | Fax: | | | | | Spine w wo | | [phone] | | | | | Contrast | [phone] | | +--------+--------+ + + + + Encounter Details +--------+ + + + + | Date | Type | Department | Care Team | Description | +--------+ + + + + | 01/30/ | Hospital | [facility] | Justen Ribera | Status post lumbar | | 2011 - | Encounter | MED CTR XRAY [address] | F, [address] | spinal fusion; | | | | [address] [place] | [place] | Bilateral leg | | 02/01/ | | [place] [address] | [address] | weakness | | 2011 | | [phone] | | | | | | | [...] + + + +---------+ + + | Savannah-3 Fatty | 1200 mg daily | | [...] | | | | | | [facility] | | | | | | [place] | | | | | | [address] | | | | | | | [...] Performed At | + + + | [facility] | TOWNER | | Department [address] [facility] | [facility] | | [ rep ct [address]] [ rep [facility] | | st [facility]] Signed | - IMAGING | | | | | Patient Name: KASSIE BEAR Physician: | | | JOSI. : 1940 Age: 71 Sex: F Unit #: [id number] | | | Exam Date: 01/31/12 Location: [facility] | | | Report #: [id number] Page: | | | %(RAD)RES..mtdd.print.filter("pg") of %(RAD) | | | RES..mtdd.print.filter("tpg") | | | | | | Accession Number: [id number] | | | LUMBAR SPINE MRI WITH [...] | | | Transcribed Date/Time: 01/31/2012 15:16 Sewing Machine Attachment Tester: | | | <<Signature on File>> | | | Mando | | | Perla Yang MD01/31/12 1735 <Electronically signed by Mando Duncan | | Yary Yang MD> Mando Yang MD 01/31/12 5983 | | | Sewing Machine Attachment Tester: Vericept Kobatkfvibqrx19/20/12 1516 | | | Justen Ribera MD | | + + + + + + + + | Performing | Address | City/State/Zipcode | Phone Number | | Organization | | | | + + + + + | [facility] | [address] | [place] | [phone] | | [facility] | | [address] | | | - IMAGING | | | | + + + + + documented in this encounter Visit Diagnoses + + | Diagnosis | + + | Status post lumbar spinal fusion Arthrodesis status | + + | Bilateral leg weakness Other musculoskeletal symptoms referable to limbs | + + documented in this encounter
--- OUTSIDE RECORDS SUMMARY | ~2019-07-17 | XMS | Encounter Summary ---
Demographics + + + | Address | [address] | | | [place] [address] | + + + | Home Phone | | + + + | Preferred Language | Unknown | + + + | Marital Status | | + + + | Denominational Affiliation | Unknown | + + + | Race | Unknown | + + + | Ethnic Group | Unknown | + + + Author + + + | Author | [facility] | | | and [place] | + + + | Organization | [facility] | | | and [place] | + + + | Address | Unknown | + + + | Phone | Unavailable | + + + Support + + + + + | Name | Relationship | Address | Phone | + + + + + | Veronica Anderson | ECON | [place] | | | | | [address] | | + + + + + | Beatrice Paulson | ECON | [address] | | | | | [place] | | | | | [address] | | + + + + + Care Team Providers + +------+ + | Care Air Compressor Operator Name | Role | Phone | + +------+ + | Venkata Pettit MD | PCP | | + +------+ + Encounter Details +--------+ + + + + | Date | Type | Department | Care Team | Description | +--------+ + + + + | 04/12/ | Orders Only | [facility] | Olayinka Rothman | Osteoarthritis of | | 2016 | | PHYSIATRY [address] | TMD [address] | lumbar spine, | | | | [address] | [address] [place] | unspecified spinal | | | | [place] | [address] | osteoarthritis | | | | [address] | | complication status | | | | [phone] | | (Primary Dx) | +--------+ + + + + Social [...] [address] | | | | | | [facility] | | | | | | [place] | | | | | | [address] | | | | | | | | +--------+---------+ + + + documented as of this encounter Results [place] Facet Injection Lumbar Sacral (05/02/2015 1:46 PM PDT) + + | Specimen | + + | | + + + + + | Narrative | Performed At | + + + | 05/02/2015 Bilateral Lumbar Facet Steroid Injections | [facility] | | Diagnosis: Lumbar Spondylosis ICD-10 Code M47.816 Kassie Velasquez | [facility] | | Marianela presents to the fluoroscopy suite for [facility] | | fluoroscopically-guided bilateral L5-S1 facet injections [...] | + + + + + | [facility] | [address] | [place] | [phone] | | [facility] | | [address] | | | - IMAGING | | | | + + + + + documented in this encounter Visit Diagnoses + + | Diagnosis | + + | Osteoarthritis of lumbar spine, unspecified spinal osteoarthritis complication status | | - Primary | + + documented in this encounter"
--- OUTSIDE RECORDS SUMMARY | ~2019-07-17 | XMS | Encounter Summary ---
Demographics + + + | Address | [address] | | | [place] [address] | + + + | Home Phone [...] [place] | | | | | [address] | | + + + + + | Beatrice Paulson | ECON | [address] | | | | | [place] | | | | | [address] | | + + + + + Care Team Providers + +------+ + | Care Surgical Coordinator Name | Role | Phone | [...] | | | | | | sm ([facility]) | | | | | | [...] + + | 04/03/ | Hospital | [facility] | Melvin [place] | Persistent atrial | | 2020 | Encounter | [facility] | A, [address] | fibrillation (HCC) | | | | ULTRASOUND [address] | [address] | | | | | [address] | [address] [place], [place] | | | | | [place], [place] | [address] | | | | | [address] | | | | | | [phone] | | | +--------+ + + + [...] | | | | | Lizzie Garcia [facility] | | | | | | [place] | | | | | | [address] | | | | | | | [...] | | | | Signed by: Na Balnco Shawn | | Sign Date/Time: 04/03/2019 9:03 [...]
--- OUTSIDE RECORDS SUMMARY | ~2019-07-17 | XMS | Encounter Summary ---
Demographics + + + | Address | [address] | | | [place] [address] | + + + | Home Phone | | + + + | Preferred Language | Unknown | + + + | Marital Status | | + + + | Mormonism Affiliation | Unknown | + + + [...] [place] | | | | | [address] | | + + + + + | Beatrice Paulson | ECON | [address] | | | | | [place] | | | | | [address] | | + + + + + Care Team Providers + +------+ + | Care Movie Shot Cameraman Name | Role | Phone | + [...] | | | | | Cervical | Setphan, | [address] | | | | | radiculopath | Olayinka Duncan MD | [place], | | | | | y | [address] | [place] | | | | | Procedures | [place] | [address] | | | | | [place] | [place], [place] | Phone: | | | | | DX/THER SBST | [address] | [phone] | | | | | INTRLMNR | Phone: | Fax: | | | | | CRV/THRC | [phone] | [phone] | | | | | W/IMG GDN | Fax: | | | | | | [place] | [phone] | | | | | | TRIAMCINOLON [...] + + | 12/02/ | Hospital | [facility] | Alex Cutler, | Cervical stenosis of | | 2018 | Encounter | MED CTR XRAY [address] | PA-C [address] | spinal canal; | | | | [address] [place] | [address] [place] | Neural foraminal | | | | [place] [address] | [place] [address] | stenosis of cervical | | | | [phone] | spine | | | | | | | | | | | Mold BlowerPaulino | | | | | | [place] [...] [address] | | | | | | [facility] | | | | | | [place] | | | | | | [address] | | | | | | | [...]
--- OUTSIDE RECORDS SUMMARY | ~2019-07-17 | XMS | Encounter Summary ---
Demographics + + + | Address | [address] | | | [place] [address] | + + + | Home Phone | | + + + | Preferred Language | Unknown | + + + | Marital Status | | + + + | Congregational Affiliation | Unknown | + + + | Race | Unknown | + + + | Ethnic Group | Unknown | + + + Author + + + | Author | [facility] | | | and [place] | + + + | Organization | [facility] | [...] [place] | | | | | [address] | | + + + + + | eBatrice Paulson | ECON | [address] | | | | | [place] | | | | | [address] | | + + + + + Care Team Providers + +------+ + | Care Licensed Certified Orthotist Name | Role | Phone | + [...] | | | | | Lumbar | [address] | | | | | | spinal | [place], | | | | | | stenosis | [place] [address] | | | | | | Spondylolist | Phone: | | | | | | hesis of | [phone] | | | | | | lumbar | [phone] Fax: | | | | | | region | | | | | | | Foraminal | [phone] | | | | | | stenosis [...] | | | n | Lumbar | [address] | [address] [place] | | | | | spinal | [place], | [place], [place] | | | | | stenosis | [place] [address] | [address] Phone: | | | | | Spondylolist | Phone: | [phone] | | | | | hesis of | [phone] | Fax: | | | | | lumbar | [phone] Fax: | [phone] | | | | | region | | | | | | | Foraminal | [phone] | | | | | | stenosis [...] | | | | | | ([facility]) | | | +--------+ + + + [...] + + | 02/28/ | Office | [facility] | Justen Ribera | S/P lumbar fusion | | 2012 | Visit | NEUROSURGERY [address] | [address] | (Primary Dx); Lumbar | | | | [address] | [address] [place] | spinal stenosis; | | | | [place] | [address] | Spondylolisthesis of | | | | [address] | [phone] | lumbar region; | | | | [phone] | | Foraminal stenosis | | | [...] from the original. Justen Ribera MD [address] [facility], [address] [place], [place] [address] FAX: NEUROSURGERY FOLLOW-UP CHIEF COMPLAINT: Chief Complaint [...] would recommend co ntinuing to use a principal trainer. I spent 30 minutes in visit with [...] | | | | | | [facility] | | | | | | [place] | | | | | | [address] | | | | | | | [...] Sacroiliitis | | | | | | ([facility]) | | + + +--------+ + + [...]
--- OUTSIDE RECORDS SUMMARY | ~2019-07-17 | XMS | Encounter Summary ---
Demographics + + + | Address | [address] | | | [place] [address] | + + + | Home Phone | | + + + | Preferred Language | Unknown | + + + | Marital Status | | + + + | Hoahaoism Affiliation | Unknown | + + + | Race | Unknown | + + + | Ethnic Group | Unknown | + + + Author + + + | Author | [facility] | | | and [place] | + + + | Organization | [facility] | | | and [place] | + + + | Address | Unknown | + + + | Phone | Unavailable | + + + Support + + + + + | Name | Relationship | Address | Phone | + + + + + | Veronica Anderson | ECON | [place] | | | | | [address] | | + + + + + | Beatrice Paulson | ECON | [address] | | | | | [place] | | | | | [address] | | + + + + + Care Team Providers + +------+ + | Care Senior Project Accountant Name | Role | Phone | + +------+ + | Venkata Pettit MD | PCP | | + +------+ + Encounter Details +--------+ + + + + | Date | Type | Department | Care Team | Description | +--------+ + + + + | 02/13/ | Hospital | [facility] | Wilton Smith, | Status post lumbar | | 2013 | Encounter | MED CTR XRAY [address] | DO [address] | spinal fusion | | | | [place] | [address] [place], [place] | | | | | [place] [address] | [phone] | | | | | [phone] | | | +--------+ + + + [...] + + +---------+ + + | | | | 0 | 01/28/20 | | | HYDROcodone-acetamin | | | | 13 | 4 | | ophen (NORCO) 10-325 | | | | | | | mg per tablet | | | | | | [...] + + + +---------+ + + | methocarbamol | TAKE ONE OR TWO | 60 | 4 | 02/12/19 | | | (ROBAXIN) 750 mg | TABLETS BY MOUTH | tablet | | 14 | 4 | | tablet | FOUR TIMES DAILY | | | | | | | NEEDED FOR | | | | | | | MUSCLESPASM | | | | | + + + +---------+ + + | NAPROXEN | Take 220 mg by mouth | | 0 | | | | | 2 times daily. | | | | 4 | + + + +---------+ + + | oxyCODONE | Take 1-2 tablets by | 60 | 0 | 02/13/19 | | | (ROXICODONE) 5 mg | mouth every 4 hours | tablet | | 14 | 4 | | tablet | as needed. | | | | | + + [...] [address] | | | | | | [facility] | | | | | | [place] | | | | | | [address] | | | | | | | | +--------+---------+ + + + documented as of this encounter Procedures + +--------+ + + + | Procedure Name | Priori | Date/Time | Associated Diagnosis | Comments | | | ty | | | | + +--------+ + + + | XR LUMBAR SPINE 2 OR | Routin | 02/13/2013 | Status post lumbar | Results for this | | 3 VW | e | 10:25 AM | spinal fusion | procedure are in the | | | | PST | | results section. | + +--------+ + + + documented in this encounter Results XR Lumbar Spine 2 or 3 Vw (02/13/2013 10:25 AM PST) + + | Specimen | + + | | + + + + + | Narrative | Performed At | + + + | [facility] | [place] | | Department [address] [place] | [facility] | | [ rep ct [address]] [ rep ct [facility] | | st zip] Signed | - IMAGING | | | | | Patient Name: MARIA GKASSIE Alarcon Physician: | | | SYL. : 1940 Age: 72 Sex: F Unit #: [id number] | | | Exam Date: 02/13/13 Location: [facility] | | | Report #: [id number] Page: | | | %(RAD)RES..mtdd.print.filter("pg") of %(RAD) | | | RES..mtdd.print.filter("tpg") | | | | | | Accession Number: [id number] | | | LUMBAR SPINE, 02/13/2013 CLINICAL [...] Transcribed Date/Time: | | | 02/13/2013 10:47 History Instructor: | | | <<Signature on File>> | | | | | | Michael Lopez MD02/13/13 1442 <Electronically signed by | | | Michael Lopez MD> Michael Lopez MD 02/13/13 | | | 1025 History Instructor: [employer] Smqyzeclegraa96/03/14 1047 | | | Wilton Smith DO | | + + + + + + + + | Performing | Address | City/State/Zipcode | Phone Number | | Organization | | | | + + + + + | [facility] | [address] | [place] | [phone] | | [facility] | | [address] | | | - IMAGING | | | | + + + + + documented in this encounter Visit Diagnoses + + | Diagnosis | + + | Status post lumbar spinal fusion Arthrodesis status | + + documented in this encounter
--- OUTSIDE RECORDS SUMMARY | ~2019-07-17 | XMS | Encounter Summary ---
Demographics + + + | Address | [address] | | | [place] [address] | + + + | Home Phone [...] [place] | | | | | [address] | | + + + + + | Beatrice Paulson | ECON | [address] | | | | | [place] | | | | | [address] | | + + + + + Care Team Providers + +------+ + | Care Night Stocker Name | Role | Phone | + [...] + + | 04/07/ | Office | [facility] | Wilton Smith, | Midline low back | | 2015 | Visit | NEUROSURGERY [address] | DO [address] | pain without | | | | [address] | [address] [place], [place] | sciatica (Primary | | | | [place] | [address] | Dx); S/P lumbar | | | | [address] | | fusion | | | | [phone] | | | +--------+---------+ + + + [...] m the original. Wilton Smith DO [address] [facility] [address] [place] [address] FAX: NEUROSURGERY FOLLOW-UP CHIEF COMPLAINT: Chief Complaint [...] Left 06/28/[address] Will at [facility] Squamous cell carcinoma (left jawline) removed [...] [address] | | | | | | [facility] | | | | | | [place] | | | | | | [address] | | | | | | | | +--------+---------+ + + + documented as of this encounter Visit Diagnoses + + | Diagnosis | + + | Midline low back pain without sciatica - Primary | + + | S/P lumbar fusion Arthrodesis status | + + documented in this encounter
--- OUTSIDE RECORDS SUMMARY | ~2019-07-17 | XMS | Encounter Summary ---
Demographics + + + | Address | [address] | | | [place] [address] | + + + | Home Phone [...] [place] | | | | | [address] | | + + + + + | Beatrice Paulson | ECON | [address] | | | | | [place] | | | | | [address] | | + + + + + Care Team Providers + +------+ + | Care Varnish Finisher Name | Role | Phone | + [...] | | | | | | sm ([facility]) | | | | | | | Essential | | | | | | | hypertension | | | | | | | Chronic | | | | | | | atrial | | | | | | | fibrillation | | | | | | | ([facility]) | | | | | | | Decreased | | | | | | | hemoglobin | | | | | | | Pseudoaneury | | | | | | | sm following | | | | | | | procedure | | | | | | | ([facility]) | | | | | [...] Description | +--------+---------+ + + + | 04/04/ | Surgery | [facility] | Breana Mullen | ENDARTERECTOMY | | 2019 | | [facility] | I, DO [address] | FEMORAL Will need | | | | [address]PER[address] | [address] | arteriogram in IR | | | | [address] | [place] [address] | initially under | | | | [place], [place] | [phone] | moderate sedation | | | | [address] | | and if not amenable | | | | [phone] | | to stenting then | | | | | | will need left groin | | | | | | cut down. | +--------+---------+ + + + Social History [...] Buchanan MD - 04/10/2019 8:50 AM PST [facility] Service: Hospitalist Discharge Summary Date of [...] me appropriately. DATA Recent Labs Lab 04/10/19 0504/09/198 04/08/19420 WBC 7.97 7.40 9.76 HGB 9.5* [...] 49* 48* Radiology No results found. Disposition: senior care Condition: Fair Code Status: Full Code Discharge Procedure Orders Ambulatory Referral to [facility] Vascular Surgery Referral Priority: Routine Referral Type: Evaluate & Treat Referral Reason: Specialty Services Required Referred to Provider: BRIDGETTE LOPEZ Requested Specialty: Vascular Surgery Number of Visits Requested: 1 Follow up: Elvin Jamil MD [address] [place] [address] On 05/04/2019 Parvez Vail MD [address] [facility] [address] In 1 week [facility] [address] [facility] [phone] Breana Mullen DO [address] [place] [address] In 2 weeks Discharge Medications New Medications [...] Colbert MD - 04/09/2019 3:16 PM PST [facility] Service: Hospitalist Discharge Summary Date of [...] vac in place DATA Recent Labs Lab 04/09/1941704/08/19 04204/07/19 0601 WBC 7.40 9.76 12.07* HGB 7.3* [...] hours. No results for input(s): PHART, PO2ART, PJX5CWB, R8BIFUQV, BEART in the last 168 hours. Recent Labs Lab 04/09/19 0418 04/08/19 0421 04/07/19 0534 INR 1.2 1.1 1.1 PTT 33* 49* 48* No results for input(s): TSH in the last 168 hours. Invalid input(s): T3FREE, FREET4 No results for input(s): TROPONINT in the last 168 hours. Invalid input(s): CKTOTAL, TROPONINI, CKMBINDEX Radiology No results found. Disposition: senior care Condition: Fair Code Status: Full Code No discharge procedures on file. Follow up: Elvin Jamil MD [address] [place] [address] On 05/04/2019 Parvez Vail MD [address] [facility] [address] In 1 week [facility] [address] [facility] [id number] Discharge Medications New Medications Details enoxaparin 120 [...] accounted for. IVs D/C'd. Patient D/C via betina davidson. Val Webb RN Thai Zambrano MD - [...] PRN Breana Mullen DO amiodarone (PACERONE) tablet 200 mg 200 [...] BID Breana Mullen DO Stopped at 04/07/192153 enoxaparin (LOVENOX) 120 mg/0.8 mL injection 120 [...] Breana Mullen, DO 20 mg at 04/09/19 1941 warfarin [...] rounding uneventf ul. Chart check complete. Tatiana El, RN Dain Colbert MD - 3:26 PM PSTPatient's discharge was delayed because [facility] did not have an opening today patient will be discharged to [facility] if she is medically stable. Received a call from Dr. Peters who advised to pack RBC transfusion to get a hemoglobin c lose to 9. roctor, Shekhar Duncan [facility] - 04/09/2019 2:45 PM PSTFormatting of this [...] and modify therapy as indicated. Val Holliday, PharmD, BCPS 04/09/19 2:43 PM Iam Bustillo, [facility] - 04/09/2019 7:48 AM PSTFormatting of [...] fib post ablati on s/p DCCV with anglican of SR. Patient awake and alert seated [...] Once PRN Breana Mullen, amiodarone (PACERONE) tablet 400 mg 400 mg [...] 500 mcg 500 mcg Oral Daily Breana Muleln DO 500 mcg at 04/09/19 0832 dextrose [...] mL Topical Once per day on Sat Breanaevon Mullen, DO 10 mL at 04/06/19 1156 ondansetron (ZOFRAN) injection 4 mg 4 mg Intravenous Once PRN Breana Man Mullen, DO ondansetron (ZOFRAN) injection 4 mg [...] with the findings and plan of the [facility] practice provider/house staff with further assessment and [...] Dain Colbert MD - 2:17 PM PST [facility] Service: Hospitalist Progress Note Hospital Day: [...] hours. No results for input(s): PHART, PO2ART, ASB1JKO, H3FVZISW, BEART in the last 168 hours. Recent [...] LEFT (04/03/2019); LOWER EXTREMITY ANY JOINT (03/04/2009); AK OCEDURE: Thin section axial images through the [...] Code Dain Loya MD 04/08/2019 2:17 PM ris Thayer, [facility] - 04/08/2019 1:07 PM PSTFormatting of this [...] modify therapy as indicated. Kizzy Thayer, PharmD, [facility] 04/08/19 1:02 PM Wen Barragan RN - 04/08/2019 11:55 AM PST [facility] Service: Wound Care NPWT Note Hospital [...] Kumar DO - 04/08/2019 10:27 AM PST [facility] Progress Note Primary Care Physician: Parvez [...] 04/07/19 0702 04/07/19 0601 04/07/19 0534 04/06/19 21004/06/19 0413 WBC 9.76 -- 12.07* -- -- [...] able, plan to follow up in [facility] clinic in 2 weeks or sooner if [...] Daily Breana Mullen DO 50 mg at 08 bisacodyl (DULCOLAX) suppository 10 mg 10 mg Rectal Daily PRN Breana Mullen DO 10 mg at 04/06/19 0049 cholecalciferol (VITAMIN D-3) tablet 4,000 Units 4,000 Units Oral Daily Breana lakhani DO 4,000 Units at 04/08/19 0807 cyanocobalamin (VITAMIN B-12) tablet 500 mcg 500 mcg Oral Daily Breana Mullen, DO 500 mcg at 04/08/19 0807 dextrose 50% injection 12.5-25 g 12.5-25 g Intravenous Q15 Min PRN Breana Mullen, DO docusate-senna (SENOKOT-S) 50-8.6 mg per tablet 2 tablet 2 tablet Oral BID Breana Mullen, DO Stopped at 04/07/192153 heparin in dextrose 100 units/mL infusion 12 Units/kg/hr (Barnum) Intravenous Continuou s Breana Mullen, DO 10.2 [...] Nightly Breana Mullen, DO 20 mg at 04/07/192034 warfarin (COUMADIN) tablet 5 mg 5 mg Oral Daily - Warfarin Hany Alarcon Raffi, [facility] 5 mg a t 04/07/191731 warfarin per pharmacy Other Pharmacy Consult Dain [...] 04/07 with successful and thus far maintained anglican of sinus rhythm - converted to oral [...] with the findings and plan of the [facility] practice provider/house staff with further assessment and [...] - pending improvement in medical issuesBreana Mullen I DO - 04/07/2019 8:00 PM PST [facility] Progress Note Primary Care Physician: Parvez [...] Patient has been stable on home regimen ADMINISTRATIVE ASSISTANT DATA ENTRY Heparin infusion: therapeutic aPTT in the past [...] might be different from th e original. [facility] Service: Hospitalist Progress Note Hospital Day: [...] not displayed. Recent Labs Lab 04/07/19 0702 04/06/1941204/05/19217 NA 136 139 137 K 4.0 4.0 4.0 CL 104 105 104 CO2 29 28 26 BUN 12 14 17 CALCIUM 8.1* 8.6 8.6 ALKPHOS 87 91 82 ALT 22 15 12 AST 29 37 38 Phosphorus: Lab Results Component Value Date PHOS 2.7 04/07/2019 No results for input(s): LABALBU in the last 168 hours. Recent Labs Lab 04/07/19 0702 04/06/19 0413 04/05/19 021 MG 2.3 1.9 1.7 No results for input(s): AMYLASE in the last 168 hours. No results for input(s): PHART, PO2ART, QIQ0DHK, E7QNGVFG, BEART in the last 168 hours. Recent [...] LEFT (04/03/2019); LOWER EXTREMITY ANY JOINT (03/04/2009); AK OCEDURE: Thin section axial images through the [...] Code Dain Loya MD 04/07/2019 12:35 PM Josse Philip, FRANC[facility] - 04/06/2019 6:16 PM PSTPatient remains in [...] note might be different from the o raulito. [facility] Service: Wound Care NPWT Note Hospital [...] MD - 04/06/2019 1:40 PM PST . [facility] Service: Hospitalist Progress Note Hospital Day: LOS: 3 days SUBJECTIVE Patient Summary: Events Overnight: Patient reports left thigh pain. Denies any chest pain shortness of breath nausea vomiting. Overnight went into A. fib. Feels constipated. Scheduled Medications atenolol 50 mg Oral Daily cholecalciferol 4,000 Units Oral Daily cyanocobalamin 500 mcg Oral Daily docusate-senna 2 tablet Oral BID mineral ovc-ewsnlcrv-uimcy (HOG) enema Rectal Once lidocaine 10 mL [...] hours. No results for input(s): PHART, PO2ART, FTL5HII, R0YHPNKZ, BEART in the last 168 hours. Recent [...] LEFT (04/03/2019); LOWER EXTREMITY ANY JOINT (03/04/2009); AK OCEDURE: Thin section axial images through the [...] Code Dain Loya MD 04/06/2019 1:40 PM ris Thayer, [facility] - 04/06/2019 11:41 AM PSTFormatting of this note might be different from the origin al. Pharmacy Warfarin Monitoring: Kassieamparo Bear female 78 y.o. Pharmacy consulted to [...] to follow and modify therapy as indication. Geoffrey VelezD, [facility] 04/06/19 11:41 AM Breana Kumar DO - 04/06/2019 11:37 AM PST . [facility] Progress Note Primary Care Physician: Parvez [...] until closed -Constipated-bowel regimen Electronically signed by: Braena Mullen DO, 04/06/2019 11:37 AM Sukhi Philip [...] might be different from t dustin original. [facility] Progress Note Primary Care Physician: Parvez [...] Colbert MD - 04/05/2019 12:54 PM PST [facility] Service: Hospitalist Progress Note Hospital Day: [...] hours. No results for input(s): PHART, PO2ART, ZOQ9XZS, G0ZXGAAI, BEART in the last 168 hours. Recent [...] LEFT (04/03/2019); LOWER EXTREMITY ANY JOINT (03/04/2009); AK OCEDURE: Thin section axial images through the [...] might be different from the or iginal. [facility] Service: Hospitalist Progress Note Hospital Day: [...] hours. No results for input(s): PHART, PO2ART, MLU7MXK, X7DCEWSN, BEART in the last 168 hours. Recent [...] LEFT (04/03/2019); LOWER EXTREMITY ANY JOINT (03/04/2009); AK OCEDURE: Thin section axial images through the [...] Heparin started at 7 .7 ml/hr per order. Breana Kumar DO - 04/04/2019 12:10 [...] monitor. Rosemary Carrero RN roctor, Val Duncan RPH - 04/03/2019 8:25 PM PSTClinical Pharmacy Note: [...] [place] | | | | | | [address] | | | | | | | [...] left | Ordered: 04/09/2019 | | to [facility] Vascular | Referral | e | thigh, [...] + + | ECG 12 LEAD | JANEI | 04/07/2019 | | Results for this [...] | | | performed at [facility] | | | | | | [address];[place], [place] | | | | | | [address] | | | | + + + + + + + + | Specimen | + + | Blood | + + + + + + + | Performing | Address | City/State/Zipcode | Phone Number | | Organization | | | | + + + + + | [facility] | [address] | [place] [address] | [phone] | + + + + + Phosphorus (04/10/2019 5:19 AM PST) + + + + + + | Component | Value | Ref Range | Performed | Pathologist | | | | | At | Signature | + + + + + + | Phosphorus | 3.6Comment: Testing | 2.3 - 4.8 mg/dL | [facility] | | | | performed at [facility], [address] | | LABORATORY | | | | [address], | | | | | | [place] [address] | | | | + + + + + + + + | Specimen | + + | Blood | + + + + + + + | Performing | Address | City/State/Zipcode | Phone Number | | Organization | | | | + + + + + | [facility] | [address] | [place] [address] | [phone] | + + + + + Comprehensive [...] | | | | | performed at [facility], [address] | | | | | | [facility], | | | | | | [place] [address] | | | | + + + + + + + + | Specimen | + + | Blood | + + + + + + + | Performing | Address | City/State/Zipcode | Phone Number | | Organization | | | | + + + + + | [facility] | [address] | [place] [address] | [phone] | + + + + + CBC [...] | | | Absolute | performed at [facility], [address] | [address] | LABORATORY | | | | [address], | | | | | | [place] [address] | | | | + + + + + + + + | Specimen | + + | Blood | + + + + + + + | Performing | Address | City/State/Zipcode | Phone Number | | Organization | | | | + + + + + | [facility] | [address] | [place] [address] | [phone] | + + + + + Red [...] | [facility] | | | COMMENT | [facility];[address] | | LABORATORY | | | | [address];[place] [address] | | | | + + + + + + + + | Specimen | + + | | + + + + + + + | Performing | Address | City/State/Zipcode | Phone Number | | Organization | | | | + + + + + | [facility] | [address] | [place] [address] | [phone] | + + + + + Type [...] + + + | BB BAND | [id number] | | [facility] | | | | | | LABORATORY | | + + + + + + | BB BAND | Testing performed at | | [facility] | | | | [facility];[address] | LABORATORY | | | | [address];[place] [address] | | | | + + + + + + | UNIT # | [id number] | | [facility] | | | | [...] + + + | UNIT # | [id number] | | [facility] | | | | [...] | + + + + + | [facility] | [address] | [place] [address] | [phone] | + + + + + Rosalind DIAZ (04/09/2019 4:18 AM PST) + + + + + + | Component | Value | Ref Range | Performed | Pathologist | | | | | At | Signature | + + + + + + | INR | 1.2Comment: REFERENCE | | KR | | | | RANGE:0.9 - 1.2 [...] | | | performed at [facility] | | | | | | [address] [facility];[place], [place] | | | | | | [address] | | | | + + + + + + + + | Specimen | + + | Blood | + + + + + + + | Performing | Address | City/State/Zipcode | Phone Number | | Organization | | | | + + + + + | [facility] | [address] | [place] [address] | [phone] | + + + + + Phosphorus (04/09/2019 4:18 AM PST) + + + + + + | Component | Value | Ref Range | Performed | Pathologist | | | | | At | Signature | + + + + + + | Phosphorus | 4.0Comment: Testing | 2.3 - 4.8 mg/dL | [facility] | | | | performed at [facility];[address] | | LABORATORY | | | | [address];[place] | | | | | | [address] | | | | + + + + + + + + | Specimen | + + | Blood | + + + + + + + | Performing | Address | City/State/Zipcode | Phone Number | | Organization | | | | + + + + + | [facility] | [address] | [place] [address] | [phone] | + + + + + Comprehensive [...] 20 | 10 - 65 U/L | KR [...] | | | | | | MDRD IDMI traceable | | | | | | equation.Testing | | | | | | performed at [facility] | | | | | | [facility];[place], [place] | | | | | | [address] | | | | + + + + + + + + | Specimen | + + | Blood | + + + + + + + | Performing | Address | City/State/Zipcode | Phone Number | | Organization | | | | + + + + + | [facility] | [address] | [place] [address] | [phone] | + + + + + CBC with Differential (04/09/2019 4:18 AM PST) + + + + + + | Component | Value | Ref Range | Performed | Pathologist | | | | | At | Signature | + + + + + + | WBC | 7.40 | 3.80 - 11.00 | KR | [...] 0.02Comment: Testing | 0.00 - 0.10 | [facility] | | | Absolute | performed at [facility];[address] | [address] | LABORATORY | | | | [address];[place], [place] | | | | | | [address] | | | | + + + + + + + + | Specimen | + + | Blood | + + + + + + + | Performing | Address | City/State/Zipcode | Phone Number | | Organization | | | | + + + + + | [facility] | [address] | [place] [address] | [phone] | + + + + + PTT (04/09/2019 4:18 AM PST) + + + + + + | Component | Value | Ref Range | Performed | Pathologist | | | | | At | Signature | + + + + + + | PTT | 33 (H)Comment: Testing | 23 - 32 seconds | [facility] | | | | performed at [facility];[address] | | LABORATORY | | | | [address];[place], [place] | | | | | | [address] | | | | + + + + + + + + | Specimen | + + | Blood | + + + + + + + | Performing | Address | City/State/Zipcode | Phone Number | | Organization | | | | + + + + + | [facility] | [address] | [place] [address] | [phone] | + + + + + Protime INR (04/08/2019 4:21 AM PST) + + + + + + | Component | Value | Ref Range | Performed | Pathologist | | | | | At | Signature | + + + + + + | INR | 1.1Comment: REFERENCE | | [facility] | | | | RANGE:0.9 - 1.2 [...] | | | performed at [facility];[address] | | | | | | [address];[place], [place] | | | | | | [address] | | | | + + + + + + + + | Specimen | + + | Blood | + + + + + + + | Performing | Address | City/State/Zipcode | Phone Number | | Organization | | | | + + + + + | [facility] | [address] | [place] [address] | [phone] | + + + + + Phosphorus (04/08/2019 4:21 AM PST) + + + + + + | Component | Value | Ref Range | Performed | Pathologist | | | | | At | Signature | + + + + + + | Phosphorus | 3.5Comment: Testing | 2.3 - 4.8 mg/dL | [facility] | | | | performed at [facility] | | LABORATORY | | | | [address];[place], [place] | | | | | | [address] | | | | + + + + + + + + | Specimen | + + | Blood | + + + + + + + | Performing | Address | City/State/Zipcode | Phone Number | | Organization | | | | + + + + + | [facility] | [address] | [place] [address] | [phone] | + + + + + Comprehensive [...] 17 | 10 - 65 U/L | [facility] [...] | | | performed at [facility];[address] | | | | | | [address];[place], [place] | | | | | | [address] | | | | + + + + + + + + | Specimen | + + | Blood | + + + + + + + | Performing | Address | City/State/Zipcode | Phone Number | | Organization | | | | + + + + + | [facility] | [address] | [place] [address] | [phone] | + + + + + CBC [...] | Absolute | performed at [facility];[address] | [address] | LABORATORY | | | | [address];[place] | | | | | | [address] | | | | + + + + + + + + | Specimen | + + | Blood | + + + + + + + | Performing | Address | City/State/Zipcode | Phone Number | | Organization | | | | + + + + + | [facility] | [address] | [place] [address] | [phone] | + + + + + PTT (04/08/2019 4:21 AM PST) + + + + + + | Component | Value | Ref Range | Performed | Pathologist | | | | | At | Signature | + + + + + + | PTT | 49 (H)Comment: Testing | 23 - 32 seconds | [facility] | | | | performed at [facility];[address] | | LABORATORY | | | | [address];[place] | | | | | | [address] | | | | + + + + + + + + | Specimen | + + | Blood | + + + + + + + | Performing | Address | City/State/Zipcode | Phone Number | | Organization | | | | + + + + + | [facility] | [address] | [place] [address] | [phone] | + + + + + ECG [...] (500), | | | | | | fondant puff maker Dion Bueno | | | | | [...] Testing | 2.3 - 4.8 mg/dL | [facility] | | | | performed at [facility], [address] | | LABORATORY | | | | [address], | | | | | | [place] [address] | | | | + + + + + + + + | Specimen | + + | Blood | + + + + + + + | Performing | Address | City/State/Zipcode | Phone Number | | Organization | | | | + + + + + | [facility] | [address] | [place] [address] | [phone] | + + + + + Comprehensive [...] | | | | | performed at [facility], [address] | | | | | | [facility], | | | | | | [place] [address] | | | | + + + + + + + + | Specimen | + + | Blood | + + + + + + + | Performing | Address | City/State/Zipcode | Phone Number | | Organization | | | | + + + + + | [facility] | [address] | [place] [address] | [phone] | + + + + + Magnesium (04/07/2019 7:02 AM PST) + + + + + + | Component | Value | Ref Range | Performed | Pathologist | | | | | At | Signature | + + + + + + | Magnesium | 2.3Comment: Testing | 1.7 - 2.4 mg/dL | [facility] | | | | performed at [facility], [address] | | LABORATORY | | | | [address], | | | | | | [place] [address] | | | | + + + + + + + + | Specimen | + + | Blood | + + + + + + + | Performing | Address | City/State/Zipcode | Phone Number | | Organization | | | | + + + + + | [facility] | [address] | [place] [address] | [phone] | + + + + + CBC [...] | | | Absolute | performed at [facility], [address] | [address] | LABORATORY | | | | [facility] | | | | | | [place] [address] | | | | + + + + + + + + | Specimen | + + | Blood | + + + + + + + | Performing | Address | City/State/Zipcode | Phone Number | | Organization | | | | + + + + + | [facility] | [address] | [place] [address] | [phone] | + + + + + PTT (04/07/2019 5:34 AM PST) + + + + + + | Component | Value | Ref Range | Performed | Pathologist | | | | | At | Signature | + + + + + + | PTT | 48 (H)Comment: Testing | 23 - 32 seconds | [facility] | | | | performed at [facility];[address] | | LABORATORY | | | | [address];[place], [place] | | | | | | [address] | | | | + + + + + + + + | Specimen | + + | Blood | + + + + + + + | Performing | Address | City/State/Zipcode | Phone Number | | Organization | | | | + + + + + | [facility] | [address] | [place] [address] | [phone] | + + + + + Protime INR (04/07/2019 5:34 AM PST) + + + + + + | Component | Value | Ref Range | Performed | Pathologist | | | | | At | Signature | + + + + + + | INR | 1.1Comment: REFERENCE | | [facility] | | | | RANGE:0.9 - 1.2 [...] | | | performed at [facility];[address] | | | | | [address];[place] | | | | | | [address] | | | | + + + + + + + + | Specimen | + + | Blood | + + + + + + + | Performing | Address | City/State/Zipcode | Phone Number | | Organization | | | | + + + + + | [facility] | [address] | [place] [address] | [phone] | + + + + + PTT (04/06/2019 9:03 PM PST) + + + + + + | Component | Value | Ref Range | Performed | Pathologist | | | | | At | Signature | + + + + + + | PTT | 48 (H)Comment: Testing | 23 - 32 seconds | [facility] | | | | performed at [facility];[address] | | LABORATORY | | | | [address];[place] | | | | | | [address] | | | | + + + + + + + + | Specimen | + + | Blood | + + + + + + + | Performing | Address | City/State/Zipcode | Phone Number | | Organization | | | | + + + + + | [facility] | [address] | [place] [address] | [phone] | + + + + + PTT (04/06/2019 3:15 PM PST) + + + + + + | Component | Value | Ref Range | Performed | Pathologist | | | | | At | Signature | + + + + + + | PTT | 48 (H)Comment: Testing | 23 - 32 seconds | [facility] | | | | performed at [facility];[address] | | LABORATORY | | | | [address];[place], [place] | | | | | | [address] | | | | + + + + + + + + | Specimen | + + | Blood | + + + + + + + | Performing | Address | City/State/Zipcode | Phone Number | | Organization | | | | + + + + + | [facility] | [address] | [place] [address] | [phone] | + + + + + PTT (04/06/2019 10:25 AM PST) + + + + + + | Component | Value | Ref Range | Performed | Pathologist | | | | | At | Signature | + + + + + + | PTT | 40 (H)Comment: Testing | 23 - 32 seconds | [facility] | | | | performed at [facility];[address] | | LABORATORY | | | | [address];[place] | | | | | | [address] | | | | + + + + + + + + | Specimen | + + | Blood | + + + + + + + | Performing | Address | City/State/Zipcode | Phone Number | | Organization | | | | + + + + + | [facility] | [address] | [place] [address] | [phone] | + + + + + ECG [...] | | | | | ONLY, -COMPUTER (126), | | | | | | fondant puff maker Destini Moy | | | | | | 20 on 04/06/2019 | | | | | [...] [facility] | | | | performed at [facility];[address] | | LABORATORY | | | | [address];[place] | | | | | | [address] | | | | + + + + + + + + | Specimen | + + | | + + + + + + + | Performing | Address | City/State/Zipcode | Phone Number | | Organization | | | | + + + + + | [facility] | [address] | [place] [address] | [phone] | + + + + + Protime JOE (04/06/2019 4:13 AM PST) + + + + + + | Component | Value | Ref Range | Performed | Pathologist | | | | | At | Signature | + + + + + + | INR | 1.0Comment: REFERENCE | | [facility] | | | | RANGE:0.9 - 1.2 [...] | | | performed at [facility];[address] | | | | | | [address];[place] | | | | | | [address] | | | | + + + + + + + + | Specimen | + + | Blood | + + + + + + + | Performing | Address | City/State/Zipcode | Phone Number | | Organization | | | | + + + + + | [facility] | [address] | [place] [address] | [phone] | + + + + + Phosphorus (04/06/2019 4:13 AM PST) + + + + + + | Component | Value | Ref Range | Performed | Pathologist | | | | | At | Signature | + + + + + + | Phosphorus | 2.7Comment: Testing | 2.3 - 4.8 mg/dL | [facility] | | | | performed at [facility];[address] | | LABORATORY | | | | [address];[place], [place] | | | | | | [address] | | | | + + + + + + + + | Specimen | + + | Blood | + + + + + + + | Performing | Address | City/State/Zipcode | Phone Number | | Organization | | | | + + + + + | [facility] | [address] | [place] [address] | [phone] | + + + + + Comprehensive [...] | >60Comment: GFR <60: | >60 | [facility] | | | GFR | CHRONIC KIDNEY [...] | | | | | | MDRD IDMI traceable | | | | | | equation.Testing | | | | | | performed at [facility] | | | | | | [facility];[place], [place] | | | | | | [address] | | | | + + + + + + + + | Specimen | + + | Blood | + + + + + + + | Performing | Address | City/State/Zipcode | Phone Number | | Organization | | | | + + + + + | [facility] | [address] | [place] [address] | [phone] | + + + + + CBC [...] | Absolute | performed at [facility];[address] | K/uL | LABORATORY | | | | [address];[place], [place] | | | | | | [address] | | | | + + + + + + + + | Specimen | + + | Blood | + + + + + + + | Performing | Address | City/State/Zipcode | Phone Number | | Organization | | | | + + + + + | [facility] | [address] [facility] | [place] [address] | [phone] | + + + + + Magnesium (04/06/2019 4:13 AM PST) + + + + + + | Component | Value | Ref Range | Performed | Pathologist | | | | | At | Signature | + + + + + + | Magnesium | 1.9Comment: Testing | 1.7 - 2.4 mg/dL | [facility] | | | | performed at [facility];[address] | | LABORATORY | | | | [address];[place], [place] | | | | | | [address] | | | | + + + + + + + + | Specimen | + + | Blood | + + + + + + + | Performing | Address | City/State/Zipcode | Phone Number | | Organization | | | | + + + + + | [facility] | [address] | [place] [address] | [phone] | + + + + + PTT (04/05/2019 10:01 PM PST) + + + + + + | Component | Value | Ref Range | Performed | Pathologist | | | | | At | Signature | + + + + + + | PTT | 41 (H)Comment: Testing | 23 - 32 seconds | [facility] | | | | performed at [facility];[address] | | LABORATORY | | | | [address];[place] | | | | | | [address] | | | | + + + + + + + + | Specimen | + + | Blood | + + + + + + + | Performing | Address | City/State/Zipcode | Phone Number | | Organization | | | | + + + + + | [facility] | [address] | [place] [address] | [phone] | + + + + + PTT (04/05/2019 3:52 PM PST) + + + + + + | Component | Value | Ref Range | Performed | Pathologist | | | | | At | Signature | + + + + + + | PTT | 55 (H)Comment: Testing | 23 - 32 seconds | [facility] | | | | performed at [facility];[address] | | LABORATORY | | | | [address];[place] | | | | | | [address] | | | | + + + + + + + + | Specimen | + + | Blood | + + + + + + + | Performing | Address | City/State/Zipcode | Phone Number | | Organization | | | | + + + + + | [facility] | [address] | [place] [address] | [phone] | + + + + + CBC [...] | 11.6Comment: NO NORMAL | fl | [facility] | | | | RANGE ESTABLISHEDTesting | | LABORATORY | | | | performed at [facility], [address] | | | | | [address], | | | | | | [place] [address] | | | | + + + + + + + + | Specimen | + + | Blood | + + + + + + + | Performing | Address | City/State/Zipcode | Phone Number | | Organization | | | | + + + + + | [facility] | [address] | [place] [address] | [phone] | + + + + + PTT (04/05/2019 8:28 AM PST) + + + + + + | Component | Value | Ref Range | Performed | Pathologist | | | | | At | Signature | + + + + + + | PTT | 66 (H)Comment: Testing | 23 - 32 seconds | [facility] | | | | performed at [facility];[address] | | LABORATORY | | | | [address];[place] | | | | | | [address] | | | | + + + + + + + + | Specimen | + + | Blood | + + + + + + + | Performing | Address | City/State/Zipcode | Phone Number | | Organization | | | | + + + + + | [facility] | [address] | [place] [address] | [phone] | + + + + + CBC [...] | Diff Type | AUTOMATEDComment: | | [facility] | | | | Testing performed at | | LABORATORY | | | | [facility], [address] | | | | | | [place], [place] | | | | | | [address] | | | | + + + + + + + + | Specimen | + + | Blood | + + + + + + + | Performing | Address | City/State/Zipcode | Phone Number | | Organization | | | | + + + + + | [facility] | [address] | [place] [address] | [phone] | + + + + + Phosphorus (04/05/2019 2:18 AM PST) + + + + + + | Component | Value | Ref Range | Performed | Pathologist | | | | | At | Signature | + + + + + + | Phosphorus | 3.1Comment: Testing | 2.3 - 4.8 mg/dL | [facility] | | | | performed at [facility];[address] | | LABORATORY | | | | [address];[place] | | | | | | [address] | | | | + + + + + + + + | Specimen | + + | Blood | + + + + + + + | Performing | Address | City/State/Zipcode | Phone Number | | Organization | | | | + + + + + | [facility] | [address] | [place] [address] | [phone] | + + + + + Comprehensive [...] 12 | 10 - 65 U/L | [facility] | | | | | | LABORATORY | | + + + + + + | Estimated | >60Comment: GFR <60: | >60 | [facility] | | | GFR | CHRONIC KIDNEY [...] | | | | | | MDRD IDMI traceable | | | | | | equation.Testing | | | | | | performed at [facility] | | | | | | [facility];[place], [place] | | | | | | [address] | | | | + + + + + + + + | Specimen | + + | Blood | + + + + + + + | Performing | Address | City/State/Zipcode | Phone Number | | Organization | | | | + + + + + | [facility] | [address] | [place] [address] | [phone] | + + + + + CBC [...] | Absolute | performed at [facility];[address] | K/uL | LABORATORY | | | | [address];[place], [place] | | | | | | [address] | | | | + + + + + + + + | Specimen | + + | Blood | + + + + + + + | Performing | Address | City/State/Zipcode | Phone Number | | Organization | | | | + + + + + | [facility] | [address] | [place] [address] | [phone] | + + + + + PTT (04/05/2019 2:18 AM PST) + + + + + + | Component | Value | Ref Range | Performed | Pathologist | | | | | At | Signature | + + + + + + | PTT | 45 (H)Comment: Testing | 23 - 32 seconds | [facility] | | | | performed at [facility];[address] | | LABORATORY | | | | [address];[place] | | | | | | [address] | | | | + + + + + + + + | Specimen | + + | Blood | + + + + + + + | Performing | Address | City/State/Zipcode | Phone Number | | Organization | | | | + + + + + | [facility] | [address] | [place] [address] | [phone] | + + + + + Vitamin B-12 04/05/2019 2:18 AM PST) + + + + + + | Component | Value | Ref Range | Performed | Pathologist | | | | | At | Signature | + + + + + + | VITAMIN | 747Comment: Testing | 254 - 1,320 | [facility] | | | B-12 | performed at [facility], [address] | pg/mL | LABORATORY | | | | [address], | | | | | | [place] [address] | | | | + + + + + + + + | Specimen | + + | Blood | + + + + + + + | Performing | Address | City/State/Zipcode | Phone Number | | Organization | | | | + + + + + | [facility] | [address] | [place] [address] | [phone] | + + + + + Retic [...] | | | Reticulocyt | performed at [facility] | | LABORATORY | | | e Count | [address] [facility];[place], [place] | | | | | | [address] | | | | + + + + + + + + | Specimen | + + | Blood | + + + + + + + | Performing | Address | City/State/Zipcode | Phone Number | | Organization | | | | + + + + + | [facility] | [address] | [place] [address] | [phone] | + + + + + Iron [...] | | | | | [place] [address] | | | | + + + + + + + + | Specimen | + + | Blood | + + + + + + + | Performing | Address | City/State/Zipcode | Phone Number | | Organization | | | | + + + + + | [facility] | [address] | [place] [address] | [phone] | + + + + + Folate (04/05/2019 2:18 AM PST) + + + + + + | Component | Value | Ref Range | Performed | Pathologist | | | | | At | Signature | + + + + + + | FOLATE | 16.6Comment: Testing | >5.4 ng/mL | [facility] | | | | performed at [facility], [address] | | LABORATORY | | | | [address], | | | | | | [place] [address] | | | | + + + + + + + + | Specimen | + + | Blood | + + + + + + + | Performing | Address | City/State/Zipcode | Phone Number | | Organization | | | | + + + + + | [facility] | [address] | [place] [address] | [phone] | + + + + + Ferritin (04/05/2019 2:18 AM PST) + + + + + + | Component | Value | Ref Range | Performed | Pathologist | | | | | At | Signature | + + + + + + | Ferritin | 193 (H)Comment: Testing | 6 - 170 ng/mL | [facility] | | | | performed at [facility], [address] | | LABORATORY | | | | [address], | | | | | | [place] [address] | | | | + + + + + + + + | Specimen | + + | Blood | + + + + + + + | Performing | Address | City/State/Zipcode | Phone Number | | Organization | | | | + + + + + | [facility] | [address] | [place] [address] | [phone] | + + + + + Magnesium (04/05/2019 2:18 AM PST) + + + + + + | Component | Value | Ref Range | Performed | Pathologist | | | | | At | Signature | + + + + + + | Magnesium | 1.7Comment: Testing | 1.7 - 2.4 mg/dL | [facility] | | | | performed at [facility];[address] | | LABORATORY | | | | [address];[place], [place] | | | | | | [address] | | | | + + + + + + + + | Specimen | + + | Blood | + + + + + + + | Performing | Address | City/State/Zipcode | Phone Number | | Organization | | | | + + + + + | [facility] | [address] | [place] [address] | [phone] | + + + + + CBC [...] LABORATORY | | | | performed at [facility] | | | | | | [address];[place] | | | | | | [address] | | | | + + + + + + + + | Specimen | + + | Blood | + + + + + + + | Performing | Address | City/State/Zipcode | Phone Number | | Organization | | | | + + + + + | [facility] | [address] | [place] [address] | [phone] | + + + + + PTT (04/04/2019 6:42 PM PST) + + + + + + | Component | Value | Ref Range | Performed | Pathologist | | | | | At | Signature | + + + + + + | PTT | 33 (H)Comment: Testing | 23 - 32 seconds | [facility] | | | | performed at [facility];[address] | | LABORATORY | | | | [address];[place] | | | | | | [address] | | | | + + + + + + + + | Specimen | + + | Blood | + + + + + + + | Performing | Address | City/State/Zipcode | Phone Number | | Organization | | | | + + + + + | [facility] | [address] | [place] [address] | [phone] | + + + + + CBC [...] LABORATORY | | | | performed at [facility] | | | | | | [address];[place], [place] | | | | | | [address] | | | | + + + + + + + + | Specimen | + + | Blood | + + + + + + + | Performing | Address | City/State/Zipcode | Phone Number | | Organization | | | | + + + + + | [facility] | [address] | [place] [address] | [phone] | + + + + + CBC [...] | 10.9Comment: NO NORMAL | fl | [facility] | | | | RANGE ESTABLISHEDTesting | | LABORATORY | | | | performed at [facility];[address] | | | | | | [address];[place] | | | | | | [address] | | | | + + + + + + + + | Specimen | + + | Blood | + + + + + + + | Performing | Address | City/State/Zipcode | Phone Number | | Organization | | | | + + + + + | [facility] | [address] | [place] [address] | [phone] | + + + + + PTT (04/04/2019 12:36 PM PST) + + + + + + | Component | Value | Ref Range | Performed | Pathologist | | | | | At | Signature | + + + + + + | PTT | 54 (H)Comment: Testing | 23 - 32 seconds | [facility] | | | | performed at [facility];[address] | | LABORATORY | | | | [address];[place], [place] | | | | | | [address] | | | | + + + + + + + + | Specimen | + + | Blood | + + + + + + + | Performing | Address | City/State/Zipcode | Phone Number | | Organization | | | | + + + + + | [facility] | [address] | [place] [address] | [phone] | + + + + + Magnesium (04/04/2019 11:52 AM PST) + + + + + + | Component | Value | Ref Range | Performed | Pathologist | | | | | At | Signature | + + + + + + | Magnesium | 1.9Comment: Testing | 1.7 - 2.4 mg/dL | [facility] | | | | performed at [facility];[address] | | LABORATORY | | | | [address];[place] | | | | | | [address] | | | | + + + + + + + + | Specimen | + + | | + + + + + + + | Performing | Address | City/State/Zipcode | Phone Number | | Organization | | | | + + + + + | [facility] | [address] | [place] [address] | [phone] | + + + + + Comprehensive [...] 12 | 10 - 65 U/L | [facility] | | | | | | LABORATORY | | + + + + + + | Estimated | >60Comment: GFR <60: | >60 | [facility] | | | GFR | CHRONIC KIDNEY [...] | | | performed at [facility];[address] | | | | | | [facility];[place], [place] | | | | | | [address] | | | | + + + + + + + + | Specimen | + + | | + + + + + + + | Performing | Address | City/State/Zipcode | Phone Number | | Organization | | | | + + + + + | [facility] | [address] | [place] [address] | [phone] | + + + + + CBC [...] | 11.1Comment: NO NORMAL | fl | [facility] | | | | RANGE ESTABLISHEDTesting | | LABORATORY | | | | performed at [facility];[address] | | | | | | [address];[place] | | | | | | [address] | | | | + + + + + + + + | Specimen | + + | Blood | + + + + + + + | Performing | Address | City/State/Zipcode | Phone Number | | Organization | | | | + + + + + | [facility] | [address] | [place] [address] | [phone] | + + + + + Red [...] BANK | Testing performed at | | [facility] | | | COMMENT | [facility];[address] | | LABORATORY | | | | [address];[place] [address] | | | | + + + + + + + + | Specimen | + + | | + + + + + + + | Performing | Address | City/State/Zipcode | Phone Number | | Organization | | | | + + + + + | [facility] | [address] | [place] [address] | [phone] | + + + + + CBC [...] LABORATORY | | | | performed at [facility];[address] | | | | | [address];[place], [place] | | | | | | [address] | | | | + + + + + + + + | Specimen | + + | Blood | + + + + + + + | Performing | Address | City/State/Zipcode | Phone Number | | Organization | | | | + + + + + | [facility] | [address] | [place] [address] | [phone] | + + + + + Protime INR (04/04/2019 6:18 AM PST) + + + + + + | Component | Value | Ref Range | Performed | Pathologist | | | | | At | Signature | + + + + + + | INR | 1.7Comment: REFERENCE | | [facility] | | | | RANGE:0.9 - 1.2 [...] | | | performed at [facility];[address] | | | | | | [address];[place] | | | | | | [address] | | | | + + + + + + + + | Specimen | + + | Blood | + + + + + + + | Performing | Address | City/State/Zipcode | Phone Number | | Organization | | | | + + + + + | [facility] | [address] | [place] [address] | [phone] | + + + + + Iron, Total (04/03/2019 10:45 PM PST) + + + + + + | Component | Value | Ref Range | Performed | Pathologist | | | | | At | Signature | + + + + + + | Iron | 47Comment: Testing | 30 - 180 ug/dL | [facility] | | | | performed at [facility], [address] | | LABORATORY | | | | [address], | | | | | | [place] [address] | | | | + + + + + + + + | Specimen | + + | Blood | + + + + + + + | Performing | Address | City/State/Zipcode | Phone Number | | Organization | | | | + + + + + | [facility] | [address] | [place] [address] | [phone] | + + + + + CBC [...] LABORATORY | | | | performed at [facility];[address] | | | | | | [address];[place] | | | | | | [address] | | | | + + + + + + + + | Specimen | + + | Blood | + + + + + + + | Performing | Address | City/State/Zipcode | Phone Number | | Organization | | | | + + + + + | [facility] | [address] | [place] [address] | [phone] | + + + + + Troponin I (04/03/2019 7:45 PM PST) + + + + + + | Component | Value | Ref Range | Performed | Pathologist | | | | | At | Signature | + + + + + + | Troponin I | 1.186 ()Comment: | 0.00 - 0.04 | [facility] | | | | 0.04 ng/mL or [...] | | | performed at [facility] | | | | | | [facility];[place], [place] | | | | | | [address] | | | | + + + + + + + + | Specimen | + + | | + + + + + + + | Performing | Address | City/State/Zipcode | Phone Number | | Organization | | | | + + + + + | [facility] | [address] | [place] [address] | [phone] | + + + + + CBC [...] | 11.2Comment: NO NORMAL | fl | [facility] | | | | RANGE ESTABLISHEDTesting | | LABORATORY | | | | performed at [facility];[address] | | | | | [address];[place], [place] | | | | | | [address] | | | | + + + + + + + + | Specimen | + + | Blood | + + + + + + + | Performing | Address | City/State/Zipcode | Phone Number | | Organization | | | | + + + + + | [facility] | [address] | [place] [address] | [phone] | + + + + + ECG [...] (500), | | | | | | fondant puff maker [address]oc[address] [place] | | | | | [...] | | | | | COMMENT | [address] | | | | | | [address];[place] [address] | | | | + + + + + + + + | Specimen | + + | | + + + + + + + | Performing | Address | City/State/Zipcode | Phone Number | | Organization | | | | + + + + + | [facility] | [address] | [place] [address] | [phone] | + + + + + PRODUCT: [...] + + + | UNIT # | [id number] | | [facility] | | | | [...] + + + | UNIT # | [id number] | | [facility] | | | | [...] | | | Status | performed at [facility];[address] | | LABORATORY | | | | [address];[place] | | | | | | [address] | | | | + + + + + + + + | Specimen | + + | | + + + + + + + | Performing | Address | City/State/Zipcode | Phone Number | | Organization | | | | + + + + + | [facility] | [address] | [place] [address] | [phone] | + + + + + CBC [...] | Absolute | performed at [facility];[address] | [address] | LABORATORY | | | | [address];[place], [place] | | | | | | [address] | | | | + + + + + + + + | Specimen | + + | Blood | + + + + + + + | Performing | Address | City/State/Zipcode | Phone Number | | Organization | | | | + + + + + | [facility] | [address] | [place] [address] | [phone] | + + + + + Type [...] + + + | BB BAND | [id number] | | [facility] | | | | | | LABORATORY | | + + + + + + | UNIT # | [id number] | | [facility] | | | | [...] + + + | UNIT # | [id number] | | [facility] | | | | [...] + + + | UNIT # | [id number] | | [facility] | | | | [...] | | | RESULT | performed at [facility] | | LABORATORY | | | | Fatimah Baptiste;[place], [place] | | | | | | [address] | | | | + + + + + + | UNIT # | [id number] | | [facility] | | | | [...] | + + + + + | [facility] | [address] | [place] [address] | [phone] | + + + + + POC Glucose (04/03/2019 6:57 PM PST) + + + + + + | Component | Value | Ref Range | Performed | Pathologist | | | | | At | Signature | + + + + + + | Glucose, | 147 (H)Comment: Testing | 65 - 99 mg/dL | [facility] | | | POC | performed at [facility];[address] | | LABORATORY | | | [address];[place] | | | | | | [address] | | | | + + + + + + + + | Specimen | + + | | + + + + + + + | Performing | Address | City/State/Zipcode | Phone Number | | Organization | | | | + + + + + | [facility] | [address] | [place] [address] | [phone] | + + + + + CT [...] [facility] | | | | performed at [facility], [address] | | LABORATORY | | | | [address], | | | | | | [place] [address] | | | | + + + + + + + + | Specimen | + + | Blood | + + + + + + + | Performing | Address | City/State/Zipcode | Phone Number | | Organization | | | | + + + + + | [facility] | [address] | [place] [address] | [phone] | + + + + + Ferritin (04/03/2019 10:25 AM PST) + + + + + + | Component | Value | Ref Range | Performed | Pathologist | | | | | At | Signature | + + + + + + | Ferritin | 144Comment: Testing | 6 - 170 ng/mL | ANTHONY | | | | performed at [facility], [address] | LABORATORY | | | | [address], | | | | | | [place] [address] | | | | + + + + + + + + | Specimen | + + | Blood | + + + + + + + | Performing | Address | City/State/Zipcode | Phone Number | | Organization | | | | + + + + + | [facility] | [address] | [place] [address] | [phone] | + + + + + Protime [...] | | | performed at [facility] | | | | | | [facility];[place], [place] | | | | | | [address] | | | | + + + + + + + + | Specimen | + + | | + + + + + + + | Performing | Address | City/State/Zipcode | Phone Number | | Organization | | | | + + + + + | [facility] | [address] | [place] [address] | [phone] | + + + + + Basic [...] | 8.9 | 8.5 - 10.5 | [facility] | | | | | mg/dL | LABORATORY | | + + + + + + | Estimated | >60Comment: GFR <60: | >60 | [facility] | | | GFR | CHRONIC KIDNEY [...] | | | | | | MDRD [facility] traceable | | | | | | equation.Testing | | | | | | performed at [facility] | | | | | | [facility];[place], [place] | | | | | | [address] | | | | + + + + + + + + | Specimen | + + | Blood | + + + + + + + | Performing | Address | City/State/Zipcode | Phone Number | | Organization | | | | + + + + + | [facility] | [address] | [place] [address] | [phone] | + + + + + CBC with Differential (04/03/2019 10:25 AM PST) + + + + + + | Component | Value | Ref Range | Performed | Pathologist | | | | | At | Signature | + + + + + + | WBC | 12.36 (H) | 3.80 - 11.00 | [facility] | | | | | K/uL | [...] 0.03Comment: Testing | 0.00 - 0.10 | [facility] | | | Absolute | performed at [facility];[address] | K/uL | LABORATORY | | | | [address];[place], [place] | | | | | | [address] | | | | + + + + + + + + | Specimen | + + | Blood | + + + + + + + | Performing | Address | City/State/Zipcode | Phone Number | | Organization | | | | + + + + + | [facility] | [address] | [place] [address] | [phone] | + + + + + documented [...] +-------+ +---------+---+---+ +-------+ +---------+---+---+ | Given | 02/27/20 | 500 mcg | | | | [...] | + +---+ + +-------+ +---------+---+---+ | docusate-vickey (SENOKOT-S) | Given | 04/06/19 | 2 [...]
--- OUTSIDE RECORDS SUMMARY | ~2019-07-17 | XMS | Encounter Summary ---
Demographics + + + | Address | [address] | | | [place] [address] | + + + | Home Phone | | + + + | Preferred Language | Unknown | + + + | Marital Status | | + + + | Restorationist Affiliation | Unknown | + + + | Race | Unknown | + + + | Ethnic Group | Unknown | + + + Author + + + | Author | [facility] | | | and [place] | + + + | Organization | [facility] | | | and [place] | + + + | Address | Unknown | + + + | Phone | Unavailable | + + + Support + + + + + | Name | Relationship | Address | Phone | + + + + + | Veronica Anderson | ECON | [place] | | | | | [address] | | + + + + + | Beatrice Paulson | ECON | [address] | | | | | [place] | | | | | [address] | | + + + + + Care Team Providers + +------+ + | Care Milk Deliverer Name | Role | Phone | + [...] | Cervical | Stephan, | [address] | | | | | radiculopath | Olayinka Duncan MD | [place], | | | | | y | [address] | [place] | | | | | Procedures | [address] | [address] | | | | | AR NJX | [place], [place] | Phone: | | | | | DX/THER SBST | [address] | [phone] | | | | | | Phone: | Fax: | | | | | EPIDURAL/SUB | [phone] | [phone] | | | | | CHRISTIANO | Fax: | | | | | | CERV/THORACI | [phone] | | | | | | C AR | | | | | | | TRIAMCINOLON | | | | | | | E ACET INJ | | | | | | | NOS, 10 MG | | | | | | | AR NJX | | | | | | [...] + + | 03/08/ | Hospital | [facility] | Olayinka Rothman | Cervical | | 2017 | Encounter | MED CTR XRAY [address] | T, [address] | radiculopathy | | | | [place] | [place], [place] | | | | | [place] [address] | [id number] | | | | | [phone] | | | | | | | Pull Socket AssemblerPaulino | | | | | | margarito [...] [address] | | | | | | [facility] | | | | | | [place] | | | | | | [address] | | | | | | | [...] ICD-10 CODE M54.12 CERVICAL RADICULOPATHY Kassie | [facility] | | Eva Bear presents to the fluoroscopy suite for [facility] | | fluoroscopically-guided C7-T1 interlaminar epidural [...] + + | Performing | Address | City/State/[facility] | Phone Number | | Organization | | | | + + + + + | [facility] [facility] | [address] | [place] | [phone] | | [facility] | | [address] | | | - IMAGING | | [...] | | | | | Other, ONCE, [facility] 03/08/16 at 1330, | | PM PST | | | | | For 1 dose | | | | | | + +-------+ +-------+---+---+ +---+---+ | | | +---+---+ + +-------+ +-------+---+---+ | lidocaine 1% injection 4 mL 4 | Given | 03/08/19 | 4 mLs | | | | mL, Other, ONCE, [facility] 03/08/16 at | | 17 1:11 | [...] | | | | | Infiltration, ONCE, [facility] 03/08/16 | | PM PST | | | | | at 1315, For 1 dose | | | | | | + +-------+ +-------+---+---+ +---+---+ | | | +---+---+ documented in this encounter"
--- OUTSIDE RECORDS SUMMARY | ~2019-07-17 | XMS | Encounter Summary ---
Demographics + + + | Address | [address] | | | [place] [address] | + + + | Home Phone [...] [place] | | | | | [address] | | + + + + + | Beatrice Paulson | ECON | [address] | | | | | [place] | | | | | [address] | | + + + + + Care Team Providers + +------+ + | Care Milk Runner Name | Role | Phone | + [...] + + | 04/30/ | Telephone | [facility] | Priscilla Fuentes, | Follow-up | | 2019 | | VASCULAR SURGERY | RN | | | | | [address] | | | | | | [place] | | | | | | [address] | | | | | | [phone] | | | +--------+ + + + [...] | | | | | [facility] | | | | | | [place] | | | | | | [address] | | | | | | | | +--------+---------+ + + + documented as of this encounter Visit Diagnoses Not on filedocumented in this encounter"
--- OUTSIDE RECORDS SUMMARY | ~2019-07-17 | XMS | Encounter Summary ---
Demographics + + + | Address | [address] | | | [place] [address] | + + + | Home Phone [...] [place] | | | | | [address] | | + + + + + | Beatrice Paulson | ECON | [address] | | | | | [place] | | | | | [address] | | + + + + + Care Team Providers + +------+ + | Care Bench Machine Operator Name | Role | Phone | + +------+ + | Parvez Vail MD | PCP | | + +------+ + Reason for Visit + + + | Reason | Comments | + + + | Procedure | Procedure Questions | + + + Encounter Details +--------+ + + + + | Date | Type | Department | Care Team | Description | +--------+ + + + + | 03/26/ | Telephone | [facility] | Elvin Jamil | Procedure (Procedure | | 2020 | | [facility] | MD [address] | Questions ) | | | | [address] | [facility] | | | | | [place], [place] | [place], [place] | | | | | [address] | [address] | | | | | [phone] | | | +--------+ + + + [...] [place] | | | | | | [address] | | | | | | | | +--------+---------+ + + + documented as of this encounter Visit Diagnoses Not on filedocumented in this encounter"
--- OUTSIDE RECORDS SUMMARY | ~2019-07-17 | XMS | Encounter Summary ---
Demographics + + + | Address | [address] | | | [place] [address] | + + + | Home Phone [...] [place] | | | | | [address] | | + + + + + | Beatrice Paulosn | ECON | [address] | | | | | [place] | | | | | [address] | | + + + + + Care Team Providers + +------+ + | Care Iron Caster Name | Role | Phone | + [...] | | | | | spinal | [address] | [address] | | | | | fusion | Phone: | Phone: | | | | | [place] | [phone] | [phone] | | | | | stenosis of | Fax: | Fax: | | | | | cervical | [phone] | [phone] | | | | | region Pes [...] + + | 06/25/ | Office | [facility] | Olayinka Rothman | Chronic neck pain | | 2018 | Visit | PHYSIATRY [address] | T[address] | (Primary Dx); Spinal | | | | [address] | [address] [place] [place]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 She has appropriate fund of knowledge [...] [address] | | | | | | [facility] | | | | | | [place] | | | | | | [address] | | | | | | | [...]
--- OUTSIDE RECORDS SUMMARY | ~2019-07-17 | XMS | Encounter Summary ---
Demographics + + + | Address | [address] | | | [place] [address] | + + + | Home Phone [...] [facility] | | | and [place] | + [...] [place] | | | | | [address] | | + + + + + | Beatrice Paulson | ECON | [address] | | | | | [place] | | | | | [address] | | + + + + + Care Team Providers + +------+ + | Care Global Analytics Head Name | Role | Phone | + +------+ + | Venkata Pettit MD | PCP | | + +------+ + Encounter Details +--------+ + + + + | Date | Type | Department | Care Team | Description | +--------+ + + + + | 07/17/ | Hospital | [facility] | Felipe Hernandez, | S/P lumbar fusion | | 2013 | Encounter | MED CTR XRAY [address] | PA-C [address] | | | | | [place] | [place], [place] | | | | | [place] [address] | [address] | | | | | [phone] | | | +--------+ + + + [...] | | | | Lizzie Radha, [facility] | | | | | | [place] | | | | | | [address] | | | | | | | [...] + | MISCELLANEOUS LAB | | | [phone] | + +---------+ + + | MISCELANIOUS LAB | | | [phone] | + +---------+ + + documented in this encounter Visit Diagnoses + + | Diagnosis | + + | S/P lumbar fusion Arthrodesis status | + + documented in this encounter"
--- OUTSIDE RECORDS SUMMARY | ~2019-07-17 | XMS | Encounter Summary ---
Demographics + + + | Address | [address] | | | [place] [address] | + + + | Home Phone | | + + + | Preferred Language | Unknown | + + + | Marital Status | Single | + + + | Synagogue Affiliation | Unknown | + + + | Race | White | + + + | Ethnic Group | Not or | + + + Author + + + | Author | [facility] | + + + | Organization | [facility] | + + + | Address | Unknown | + + + | Phone | Unavailable | + + + Support + + +---------+ + | Name | Relationship | Address | Phone | + + +---------+ + | Beatrice Paulson | ECON | Unknown | | + + +---------+ + Care Team Providers + +------+ + | Care Ecologist Technician Name | Role | Phone | [...] Closed | | Clinical | Diagnoses | [place], | Cnl Emg | | | | Neurophysiolo | Myalgia | Hyacinth Alarcon, | [address] | | | | gy | Procedures | ,[facility] [address] | | | | | EMG/NERVE | [address] | Mailcode: | | | | | CONDUCTION | [place], | [address] | | | | | STUDIES,[place]UL | [place] | for Health | | | | | T - | [address] | and Healing, | | | | | NEUROLOGY | Phone: | Building [address], | | | | | | [phone] | 8th Floor | | | | | | Fax: | [place], [place] | | | | | | [phone] | [address] | | | | | | | Phone: | | | | | | | [phone] | | | | | | | Fax: | | | | | | | [phone] | +--------+--------+ + + + + Encounter Details +--------+ + + + + | Date | Type | Department | Care Team | Description | +--------+ + + + + | 10/08/ | Hospital | Neurophysiology | Teressa Triplett MD | | | 2012 | Encounter | EMG at [facility] [address] | [address] | | | | | [place] Mailcode: | [place] [address] | | | | | [facility] | [phone] | | | | | Health and Healing, | | | | | | | [address] | | | | | Floor [place], [place] | [address] | | | | | [address] | [place], | | | | | [phone] | [place] [address] | | | | | | [address] | | | | | | [place], [place] | | | | | | [address] | | | | | | [phone] | | +--------+ + + + + [...]
--- OUTSIDE RECORDS SUMMARY | ~2019-07-17 | XMS | Encounter Summary ---
Demographics + + + | Address | [address] | | | [place] [address] | + + + | Home Phone | | + + + | Preferred Language | Unknown | + + + | Marital Status | | + + + | Episcopal Affiliation | Unknown | + + + | Race | Unknown | + + + | Ethnic Group | Unknown | + + + Author + + + | Author | [facility] | | | and [place] | + + + | Organization | [facility] | | | and [place] | + + + | Address | Unknown | + + + | Phone | Unavailable | + + + Support + + + + + | Name | Relationship | Address | Phone | + + + + + | Veronica Anderson | ECON | [place] | | | | | [address] | | + + + + + | Beatrice Paulson | ECON | [address] | | | | | [place] | | | | | [address] | | + + + + + Care Team Providers + +------+ + | Care Securities Underwriter Name | Role | Phone | + +------+ + PCP | Unavailable | + +------+ + Encounter Details +--------+ + + + + | Date | Type | Department | Care Team | Description | +--------+ + + + + | 01/10/ | Hospital | [facility] | Olayinka Rothman | | | 2009 | Encounter | MED CTR LABORATORY | MD Perla [address] | | | | | [address] [place] | [place], [place] | | | | | [place], [place] | [address] | | | | | [address] | | | | | | [phone] | | | +--------+ + + + [...] 10/06/ | Office | Cardiology | Elvin Jmail | | | 2019 | Visit | | [address] | | | | | | [place] | | | | | | [place] | | | | | | [address] | | | | | | | | +--------+---------+ + + + documented as of this encounter Visit Diagnoses Not on filedocumented in this encounter"
--- OUTSIDE RECORDS SUMMARY | ~2019-07-17 | XMS | Encounter Summary ---
Demographics + + + | Address | [address] | | | [place] [address] | + + + | Home Phone [...] [place] | | | | | [address] | | + + + + + | Beatrice Paulson | ECON | [address] | | | | | [place] | | | | | [address] | | + + + + + Care Team Providers + +------+ + | Care Air Support Control Officer Name | Role | Phone | [...] | | | | | | sm ([facility]) | | | | | | [...] + + | 03/31/ | Hospital | [facility] | Elvin Jamil | Persistent atrial | | 2019 - | Encounter | [facility] | [address] | fibrillation (HCC) | | | | [address] | [facility] | | | 04/01/ | | [place], [place] | [place], [place] | | | 2019 | | [address] | [address] | | | | | [phone] | | | +--------+ + + + [...] - OK to shower with dressings in [facility] ce the day you get home. [...] follow gravity, so it s common for ywzya-gwi-nnbx quezada to move down the l eg. [...] cardiovers ion performed in December 2018 with [facility]. She did note an improveme nt in her symptoms with [facility] but unfortunately symptoms returned [...] novel oral anticoagulants are expensive under her [facility] plan. Her echocardiogram performed [...] with the findings and plan of the [facility] practice provider/house staff with further [...] ethnicity. Closure device: Manual Hemostasis: 1045 ace Macr RN - 03/31/2019 10:10 AM PSTR venous [...] [address] | | | | | | [facility] | | | | | | [place] | | | | | | [address] | | | | | | | [...] MD | | | | | | (2560) on 03/31/2019 | | | | | [...] | | | Clotting | performed at [facility];888 | seconds | LABORATORY | | | Time, POC | [address] [place];[place] | | | | | | [address] | | | | + + + + + + + + | Specimen | + + | | + + + + + + + | Performing | Address | City/State/Zipcode | Phone Number | | Organization | | | | + + + + + | [facility] | [address] | [place] [address] | [phone] | + + + + + Activated [...] | | | Clotting | performed at [facility];[address] | seconds | LABORATORY | | | Time, POC | [address];[place] | | | | | | [address] | | | | + + + + + + + + | Specimen | + + | | + + + + + + + | Performing | Address | City/State/Zipcode | Phone Number | | Organization | | | | + + + + + | [facility] | [address] | [place] [address] | [phone] | + + + + + Activated [...] | | | Clotting | performed at [facility];888 | seconds | LABORATORY | | | Time, POC | [address] [place];[place] | | | | | | [address] | | | | + + + + + + + + | Specimen | + + | | + + + + + + + | Performing | Address | City/State/Zipcode | Phone Number | | Organization | | | | + + + + + | [facility] | [address] | [place] [address] | [phone] | + + + + + Protime INR (03/31/2019 7:11 AM PST) + + + + + + | Component | Value | Ref Range | Performed | Pathologist | | | | | At | Signature | + + + + + + | INR | 2.9Comment: REFERENCE | | [facility] | | | | RANGE:0.9 - 1.2 [...] | | | | | performed at [facility];888 | | | | | | [address];[place] | | | | | | [address] | | | | + + + + + + + + | Specimen | + + | Blood | + + + + + + + | Performing | Address | City/State/Zipcode | Phone Number | | Organization | | | | + + + + + | [facility] | [address] | [place] [address] | [phone] | + + + + + CBC [...] | | | Absolute | performed at [facility];888 | K/uL | LABORATORY | | | | [address];[place], [place] | | | | | | [address] | | | | + + + + + + + + | Specimen | + + | Blood | + + + + + + + | Performing | Address | City/State/Zipcode | Phone Number | | Organization | | | | + + + + + | [facility] | [address] | [place] [address] | [phone] | + + + + + Basic [...] | >60Comment: GFR <60: | >60 | [facility] | | | GFR | CHRONIC KIDNEY [...] | | | | | | MDRD [facility] traceable | | | | | | equation.Testing | | | | | | performed at [facility];88 | | | | | | [facility];[place], [place] | | | | | | [address] | | | | + + + + + + + + | Specimen | + + | Blood | + + + + + + + | Performing | Address | City/State/Zipcode | Phone Number | | Organization | | | | + + + + + | [facility] | [address] | [place] [address] | [phone] | + + + + + CV [...] | | | | | | longer, ypmqjr-ygh-gthqj use of | | | | | [...] | | | | | | | urgpxh-arz-karjx use of at least | | | [...]
--- OUTSIDE RECORDS SUMMARY | ~2019-07-17 | XMS | Encounter Summary ---
Demographics + + + | Address | [address] | | | [place] [address] | + + + | Home Phone [...] [place] | | | | | [address] | | + + + + + | Beatrice Paulson | ECON | [address] | | | | | [place] | | | | | [address] | | + + + + + Care Team Providers + +------+ + | Care Photonics Technician Name | Role | Phone | [...] Description | +--------+--------+ + + + | 02/12/ | Refill | [facility] | Venkata Colin | Medication Refill | | 2013 | | MED CTR IRF [address] | [address] | | | | | [place], | [place] | | | | | [place] [address] | [place] [address] | | | | | [phone] | [phone] | | | | | | | [...] [place] | | | | | | [address] | | | | | | | | +--------+---------+ + + + documented as of this encounter Visit Diagnoses Not on filedocumented in this encounter"
--- OUTSIDE RECORDS SUMMARY | ~2019-07-17 | XMS | Encounter Summary ---
Demographics + + + | Address | [address] | | | [place] [address] | + + + | Home Phone | | + + + | Preferred Language | Unknown | + + + | Marital Status | | + + + | Latter-Day Affiliation | Unknown | + + + [...] [place] | | | | | [address] | | + + + + + | Beatrice Paulson | ECON | [address] | | | | | [place] | | | | | [address] | | + + + + + Care Team Providers + +------+ + | Care Retail Pharmacy Manager Name | Role | Phone | + +------+ + | Parvez Vail MD | PCP | | + +------+ + Encounter Details +--------+ + + + + | Date | Type | Department | Care Team | Description | +--------+ + + + + | 07/12/ | Orders Only | [facility] | Elvin Jamil | | | 2019 | | [place] | [address] | | | | | [address] | [facility] | | | | | [place], [place] | [place], [place] | | | | | [address] | [address] | | | | | [phone] | | | +--------+ + + + [...] [place] | | | | | | [address] | | | | | | | | +--------+---------+ + + + documented as of this encounter Visit Diagnoses Not on filedocumented in this encounter"
--- OUTSIDE RECORDS SUMMARY | ~2019-07-17 | XMS | Encounter Summary ---
Demographics + + + | Address | [address] | | | [place] [address] | + + + | Home Phone [...] [place] | | | | | [address] | | + + + + + | Beatrice Paulson | ECON | [address] | | | | | [place] | | | | | [address] | | + + + + + Care Team Providers + +------+ + | Care Lockstitch Zipper Setter Name | Role | Phone | + [...] + + | 10/31/ | Telephone | [facility] | Olayinka Rothman | Neck Pain; | | 2017 | | PHYSIATRY [address] | [address] | Injections | | | | [address] | [place], [place] | | | | | [place], [place] | [address] | | | | | [address] | | | | | | [phone] | | | +--------+ + + + [...] | | | | | | [facility] | | | | | | [place] | | | | | | [address] | | | | | | | [...]
--- OUTSIDE RECORDS SUMMARY | ~2019-07-17 | XMS | Encounter Summary ---
Demographics + + + | Address | [address] | | | [place] [address] | + + + | Home Phone [...] [place] | | | | | [address] | | + + + + + | Beatrice Paulson | ECON | [address] | | | | | [place] | | | | | [address] | | + + + + + Care Team Providers + +------+ + | Care Liner Worker Name | Role | Phone | + +------+ + PCP | Unavailable | + +------+ + Encounter Details +--------+ + + + + | Date | Type | Department | Care Team | Description | +--------+ + + + + | 03/03/ | Hospital | [facility] | Olayinka Rothman | | | 2009 | Encounter | MED CTR XRAY [address] | T, [address] | | | | | [place] | [address] [place], [place] | | | | | [place] [address] | [address] | | | | | [phone] | | | +--------+ + + + [...] Hospital | | | | | | [place] | | | | | | [address] | | | | | | | | +--------+---------+ + + + documented as of this encounter Visit Diagnoses Not on filedocumented in this encounter"
--- OUTSIDE RECORDS SUMMARY | ~2019-07-17 | XMS | Encounter Summary ---
Demographics + + + | Address | [address] | | | [place] [address] | + + + | Home Phone | | + + + | Preferred Language | Unknown | + + + | Marital Status | | + + + | Yazidism Affiliation | Unknown | + + + [...] [place] | | | | | [address] | | + + + + + | Beatrice Paulson | ECON | [address] | | | | | [place] | | | | | [address] | | + + + + + Care Team Providers + +------+ + | Care Underlay Stitcher Name | Role | Phone | + +------+ + | Venkata Pettit MD | PCP | | + +------+ + Encounter Details +--------+ + + + + | Date | Type | Department | Care Team | Description | +--------+ + + + + | 01/15/ | Hospital | [facility] | DixieVenkata jacinto | | | 2013 - | Encounter | MED CTR IRF [address] | [address] | | | | | [place], | [place] | | | 01/27/ | | [place] [address] | [place] [address] | | | 2012 | | [phone] | [phone] | | | | | | | [...] documented as of this encounter Discharge Summaries Venkata Colin MD - 01/27/2013 11:37 [place] [address] Patient Name: CUMMINSKASSIE Provider: Alphonse Colin MD Unit #: [id number] Location : [address] [place], [place] [address]t #: [id number] : 1940 ADMISSION DATE: 01/15/2013 DISCHARGE DATE: 01/27/2013 DISCHARGE DIAGNOSES 1. LUMBAR STENOSIS, STATUS POST DECOMPRESSION AND FUSION, WITH RIGHT GREATER THAN LEFT LEG WEAKNESS. 2. EFAEM-CK-CEDWWDQ PAIN SYNDROME. 3. IDIOPATHIC PERIPHERAL NEUROPATHY. 4. HYPONATREMIA. 5. ILEUS. 6. MORBID OBESITY. 7. HYPOXIA. 8. URINARY RETENTION. HISTORY: This 72-year-old woman had progressive back and leg pain with right greater than left weakness. She had previously had an L3-L4 decompression, but the problem returned and thus on 2012 Dr. Smith did an L1 through L5 decompression with arthrodesis and fusi on with excellent benefit. Postoperatively, she is needing 2 people to get in and out of bed, was dizzy when out of b ed at times and walking only 5 feet and needing moderate assistance in and out of bed. Thus , she was admitted to [facility] for further loraine abilitation, since she lives alone in [place] and could not be discharged home safely. PERTINENT POSITIVES ON PHYSICAL EXAMINATION ON ADMISSION: Right hip strength 2, knee 4-, a nkle 4-, left hip 3, knee 4, ankle 4. She had tingling in her feet consistent with her ileana pheral neuropathy. HOSPITAL COURSE: Overall, the patient did well and was able to be discharged home alone. S hortly before discharge, right hip strength 4-, knee 4+, ankle 4, left hip 4. Knee and ankl e 4+. She had an acute on chronic pain syndrome and was on Neurontin prior to this becaus e of pain. Thus, I increased her Neurontin and that helped quite a bit. We were able to wea n her off her morphine and had her only on p.o. [place] by discharge, and so will continue th e Neurontin after discharge, and the [place]. Her main problem at rehab was initially she had an ileus with colon up to 8.5 cm by x-ray, and had some bowel constipation issues that were severe. With her aggressive bowel program and mobilizing her she was able to resolve that and have regular bowel movements. She was continent of both bowel and bladder by discharge. She had morbid obesity with BMI greater than 40, this did slow rehab somewhat, but overall she did well. She was having some hypoxia issues and was weaned off oxygen by discharge. O2 saturation w as 94% on room air. Blood pressure 149/59 and heart rate 87 on the day of discharge. Last P VR 191 mL, so the urinary retention she had also resolved. She had some that were as high a s in the 300-400 range postoperatively. LABORATORIES: Hemoglobin 11.8, sodium 136, potassium 3.7, BUN 9, creatinine 0.44. Sodium w as 131 on admission, but that normalized to 136 on followup. Blood sugars initially 164, bu t down to 109 and normal by discharge. Urinalysis on admission showed some RBCs, WBCs and b lood, and a culture was obtained, but it did not show any growth. THERAPIES: By discharge she was modified independent in bed mobility, transfers, front-whe el walker gait. She has her own front-wheel walker. She was also modified independent. Inde pendent in and out of bed, toileting, toilet transfers, and even lower and upper body dress ing. She also did light homemaking and meal preparation and was successful with that. DISCHARGE MEDICATIONS 1. Coreg 12.5 mg twice a day. 2. Vitamin D3 4000 units daily. 3. Gabapentin 900 mg twice a day. 4. Magnesium gluconate 250 mg daily. 5. Colace 100 mg twice a day. 6. GlycoLax 17 gram packet with fluid daily until bowels normalized. 7. Tylenol 650 mg q.4h. p.r.n. 8. [place] 10/325, 1 to 2 tablets q.4h. p.r.n. with a prescription for that. 8. Robaxin 7 50 mg 1-2 tablets q.i.d. p.r.n., and a prescription was given for that. FOLLOWUP APPOINTMENT: Dr. Pettit in about 2 weeks to make sure she is doing okay at home mark ne with respect to both her back and bladder function. She will see Dr. Smith, the neurosurgeon, in February. This was a previously scheduled martinez ointment. DICTATED BY: Alphonse Colin MD, PHD Physiatry JOB #: [id number] EXT JOB #:[id number] cc: Alphonse Pettit MD <<Signature on File>> Alhponse Colin MD01/30/13 0910 < documented in this encounter Medications at [...] | | | | | Lizzie Garcia, [facility] | | | | | | [place] | | | | | | [id number] | | | | | | | | +--------+---------+ + + + documented as of this encounter Procedures + +--------+ + + + | Procedure Name | Priori | Date/Time | Associated Diagnosis | Comments | | | ty | | | | + +--------+ + + + | BASIC METABOLIC | Routin | 01/19/2013 | | Results for this | | PANEL | e | 7:02 AM | | procedure are in the | | | | PST | | results section. | + +--------+ + + + | XR ABDOMEN AP | Routin | 01/16/2013 | | Results for this | | | e | 8:59 AM | | procedure are in the | | | | PST | | results section. | + +--------+ + + + | CBC WITH | Routin | 01/16/2013 | | Results for this | | DIFFERENTIAL | e | 6:40 AM | | procedure are in the | | | | PST | | results section. | + +--------+ + + + | BASIC METABOLIC | Routin | 01/16/2013 | | Results for this | | PANEL | e | 6:40 AM | | procedure are in the | | | | PST | | results section. | + +--------+ + + + | UA, MICROSCOPIC, | Routin | 01/15/2013 | | Results for this | | REFLEX | e | 6:41 PM | | procedure are in the | | | | PST | | results section. | + +--------+ + + + | URINALYSIS, REFLEX | Routin | 01/15/2013 | | Results for this | | MICROSCOPIC AND/OR | e | 6:41 PM | | procedure are in the | | CULTURE | | PST | | results section. | + +--------+ + + + documented in this encounter Results Basic Metabolic Panel (01/19/2013 7:02 AM PST) + + + + + + | Component | Value | Ref Range | Performed | Pathologist | | | | | At | Signature | + + + + + + | Glucose | 109 | 70 - 109 mg/dL | [facility] | | | | | [facility] | | [facility] | | [facility] | | | | | | [facility] - | | | | | | LABORATORY | | + + + + + + | Calcium | 8.1 (L) | 8.3 - 10.5 | [facility] | | | | | mg/dL | [facility] | | | | | | [facility] | | | | | | CENTER - | | | | | | LABORATORY | | + + + + + + | BUN | 9 | 7 - 18 mg/dL | [facility] | | | [facility] | [facility] | | | | | | [facility] - | | | | | | LABORATORY | | + + + + + + | Creatinine | 0.44 (L) | 0.60 - 1.30 | [facility] | | | | | mg/dL | [facility] | | | | | | [facility] | | | | | | CENTER - | | | | | | LABORATORY | | + + + + + + | Estimated | >60Comment: For | >60 mL/min/A | [facility] | | | GFR | -Americans, | | [facility] | | | | please multiply the | | MEDICAL | | | | result by 1.210 | | CENTER - | | | | This is an estimated | | LABORATORY | | | | GFR and is based on a | | | | | | standard adult | | | | | | body mass (A=1.73m2) and | | | | | | serum creatinine | | | | + + + + + + | BUN/Creatin | 20.5 (H) | 12 - 20 | [facility] | | | ine Ratio | | | [facility] | | | | | | MEDICAL | | | | | | CENTER - | | | | | | LABORATORY | | + + + + + + | Na | 136 | 136 - 149 mEq/L | [facility] | | | | | | [facility] | | | | | | [facility]ICAL | | | | | | CENTER - | | | | | | LABORATORY | | + + + + + + | K | 3.7 | 3.5 - 5.1 mEq/l | [facility] | | | | | | [facility] | | | | | | MEDICAL | | | | | | CENTER - | | | | | | LABORATORY | | + + + + + + | Cl | 101 | 98 - 109 mEq/l | [facility] | | | | | | [facility] | | | | | | MEDICAL | | | | | | CENTER - | | | | | | LABORATORY | | + + + + + + | CO2 | 29 | 24 - 31 mEq/L | [facility] | | | | | | [facility] | | | | | | MEDICAL | | | | | | CENTER - | | | | | | LABORATORY | | + + + + + + | Anion Gap | 9.7 | 6.0 - 17.0 | [facility] | | | | | [...] + | [facility] | [address] | [place], [place] | [phone] | | [facility] | | [address] | | | - LABORATORY | | | | + + + + + | [facility] | [address] | [place], [place] | | | [facility] | | [address] | | | - LABORATORY | | | | + + + + + XR Abdomen AP (01/16/2013 8:59 AM PST) + + | Specimen | + + | | + + + + + | Narrative | Performed At | + + + | [facility] | [facility] | | Department [address] [facility] [place] | [facility] | | [ rep ct street[address]] [ rep ct [facility] | | st zip] Signed | - IMAGING | | | | | Patient Name: KASSIE CUMMINS Physician: | | | JIM.[id number] : 1940 Age: 72 Sex: F Unit #: [id number] | | | Exam Date: 01/16/13 Location: [address] [place] [address] | | | Report #: [id number] Page: | | | %(RAD)RES..mtdd.print.filter("pg") of %(RAD) | | | RES..mtdd.print.filter("tpg") | | | | | | Accession Number: [id number] | | | ABDOMEN ONE VIEW X-RAY CLINICAL HISTORY: SUSPICION OF | | | ILEUS. FINDINGS: Pedicle screws and vertical rods and | | | spinous process plating is again seen, without evidence of hardware | | | complication. Interbody disk spacers are seen at several levels in | | | the lumbar spine. Surgical clips are seen in the right upper | | | quadrant, compatible with prior cholecystectomy. There is gaseous | | | distention of the large bowel up to 8.5 cm in diameter. Given degree | | | of gas within the abdomen, gaseous filling of the small bowel loops | | | cannot be excluded. There is no evidence of free intraperitoneal | | | air; however, portable supine x-rays are not particularly sensitive | | | for this finding. Gas is seen extending to the level of the | | | rectum. No acute osseous or soft tissue abnormalities are seen. | | | IMPRESSION: GASEOUS FILLING OF THE BOWEL LOOPS, | | | EXTENDING TO THE RECTUM, SUGGESTIVE OF ILEUS. Dictated | | | Date/Time: 01/16/2013 08:59 Transcribed Date/Time: | | | 01/16/2013 09:03 Cash Control Specialist: | | | <<Signature on File>> | | | Charly | | | Saeed Vale MD01/16/13 0924 <Electronically signed by Charly Tipton | | | Akanksha GILBERT> Charly Vale MD 01/16/13 0859 | | | Cash Control Specialist: Bee Ware Gyeliybrxclem77/06/13 0903 | | | | | + + + + + + + + | Performing | Address | City/State/Zipcode | Phone Number | | Organization | | | | + + + + + | [facility] | [address] | [place] | [phone] | | [facility] | | [address] | | | - IMAGING | | | | + + + + + CBC with Differential (01/16/2013 6:40 AM PST) + + + + + + | Component | Value | Ref Range | Performed | Pathologist | | | | | At | Signature | + + + + + + | MANUAL | NO | | [facility] | | | DIFFERENTIA | | | [facility] | | | L ? | | | MEDICAL | | | | | | CENTER - | | | | | | LABORATORY | | + + + + + + | WBC | 11.4 (H) | 4.0 - 11.0 K/uL | [facility] | | | | | | [facility] | | | | | | MEDICAL | | | | | | CENTER - | | | | | | LABORATORY | | + + + + + + | RBC | 3.73 | 3.70 - 5.20 | [facility] | | | | | M/uL | [facility] | | | | | | MEDICAL | | | | | | CENTER - | | | | | | LABORATORY | | + + + + + + | Hemoglobin | 11.8 | 11.5 - 16.0 | [facility] | | | | | gm/dL | [facility] | | | | | | MEDICAL | | | | | | CENTER - | | | | | | LABORATORY | | + + + + + + | Hematocrit | 33.7 (L) | 34.0 - 47.0 % | [facility] | | | | | | [facility] | | | | | | MEDICAL | | | | | | CENTER - | | | | | | LABORATORY | | + + + + + + | MCV | 90.2 | 83.0 - 101.0 fL | [facility] | | | | | | [facility] | | | | | | MEDICAL | | | | | | CENTER - | | | | | | LABORATORY | | + + + + + + | MCH | 31.7 | 28.0 - 35.0 pg | [facility] | | | | | | [facility] | | | | | | MEDICAL | | | | | | CENTER - | | | | | | LABORATORY | | + + + + + + | MCHC | 35.1 | 32.0 - 36.0 | [facility] | | | | | g/dL | [facility] | | | | | | MEDICAL | | | | | | CENTER - | | | | | | LABORATORY | | + + + + + + | RDW-CV | 12.8 | <15.0 % | [facility] | | | | | | [facility] | | | | | | MEDICAL | | | | | | CENTER - | | | | | | LABORATORY | | + + + + + + | Platelet | 235 | 140 - 440 K/uL | [facility] | | | Count | | | [facility] | | | | | | MEDICAL | | | | | | CENTER - | | | | | | LABORATORY | | + + + + + + | % | 86.6 (H) | 45 - 75 % | [facility] | | | Neutrophils | | | [facility] | | | | | | MEDICAL | | | | | | CENTER - | | | | | | LABORATORY | | + + + + + + | % | 5.7 (L) | 20 - 45 % | [facility] | | | Lymphocytes | | | [facility] | | | | | | MEDICAL | | | | | | CENTER - | | | | | | LABORATORY | | + + + + + + | % Monocytes | 6.5 | 4 - 12 % | [facility] | | | | | | [facility] | | | | | | MEDICAL | | | | | | CENTER - | | | | | | LABORATORY | | + + + + + + | % | 0.5 | 0 - 5 % | [facility] | | | Eosinophils | | | [facility] | | | | | | MEDICAL | | | | | | CENTER - | | | | | | LABORATORY | | + + + + + + | % Basophils | 0.7 | 0 - 1 % | [facility] | | | | | | [facility] | | | | | | MEDICAL | | | | | | CENTER - | | | | | | LABORATORY | | + + + + + + | Absolute | 9.9 (H) | 1.5 - 6.6 K/uL | [facility] | | | Neutrophils | | | [facility] | | | | | | MEDICAL | | | | | | CENTER - | | | | | | LABORATORY | | + + + + + + | Absolute | 0.7 | 0.6 - 3.2 K/uL | [facility] | | | Lymphocytes | | | [facility] | | | | | | MEDICAL | | | | | | CENTER - | | | | | | LABORATORY | | + + + + + + | Absolute | 0.7 | 0.0 - 1.0 K/uL | [facility] | | | Monocytes | | | [facility] | | | | | | MEDICAL | | | | | | CENTER - | | | | | | LABORATORY | | + + + + + + | Absolute | 0.1 | 0.0 - 0.4 K/uL | [facility] | | | Eosinophils | | | [facility] | | | | | | MEDICAL | | | | | | CENTER - | | | | | | LABORATORY | | + + + + + + | Absolute | 0.1 | 0.0 - 0.1 K/uL | [facility] | | | Basophils | | | [facility] | | [...] + | [facility] | [address] | [place], [place] | [phone] | | [facility] | | [address] | | | - LABORATORY | | | | + + + + + | [facility] | [address] | [place], [place] | | | [facility] | | [address], [facility] | | | - LABORATORY | | | | + + + + + Basic Metabolic Panel (01/16/2013 6:40 AM PST) + + + + + + | Component | Value | Ref Range | Performed | Pathologist | | | | | At | Signature | + + + + + + | Glucose | 164 (H) | 70 - 109 mg/dL | [facility] | | | | | | [facility] | | | | | | MEDICAL | | | | | | CENTER - | | | | | | LABORATORY | | + + + + + + | Calcium | 8.5 | 8.3 - 10.5 | [facility] | | | | | mg/dL | [facility] | | | | | | MEDICAL | | | | | | CENTER - | | | | | | LABORATORY | | + + + + + + | BUN | 18 | 7 - 18 mg/dL | [facility] | | | | | | [facility] | | | | | | MEDICAL | | | | | | CENTER - | | | | | | LABORATORY | | + + + + + + | Creatinine | 0.58 (L) | 0.60 - 1.30 | [facility] | | | | | mg/dL | [facility] | | | | | | MEDICAL | | | | | | CENTER - | | | | | | LABORATORY | | + + + + + + | Estimated | >60Comment: For | >60 mL/min/A | [facility] | | | GFR | -Americans, | | [facility] | | | | please multiply the | | MEDICAL | | | | result by 1.210 | | CENTER - | | | | This is an estimated | | LABORATORY | | | | GFR and is based on a | | | | | | standard adult | | | | | | body mass (A=1.73m2) and | | | | | | serum creatinine | | | | + + + + + + | BUN/Creatin | 31.0 (H) | 12 - 20 | [facility] | | | ine Ratio | | | [facility] | | | | | | MEDICAL | | | | | | CENTER - | | | | | | LABORATORY | | + + + + + + | Na | 131 (L) | 136 - 149 mEq/L | [facility] | | | | | | [facility] | | | | | | MEDICAL | | | | | | CENTER - | | | | | | LABORATORY | | + + + + + + | K | 3.8 | 3.5 - 5.1 mEq/l | [facility] | | | | | | [facility] | | | | | | MEDICAL | | | | | | CENTER - | | | | | | LABORATORY | | + + + + + + | Cl | 91 (L) | 98 - 109 mEq/l | [facility] | | | | | | [facility] | | | | | | MEDICAL | | | | | | CENTER - | | | | | | LABORATORY | | + + + + + + | CO2 | 31 | 24 - 31 mEq/L | [facility] | | | | | | [facility] | | | | | | MEDICAL | | | | | | CENTER - | | | | | | LABORATORY | | + + + + + + | Anion Gap | 12.8 | 6.0 - 17.0 | [facility] | | | | | [...] + | [facility] | [address] | [place] | [phone] | | [facility] | | [address] | | | - LABORATORY | | | | + + + + + | [facility] | [address] | [place], [place] | | | [facility] | | [address] | | | - LABORATORY | | | | + + + + + UA, Microscopic, Reflex (01/15/2013 6:41 PM PST) + + + + + + | Component | Value | Ref Range | Performed | Pathologist | | | | | At | Signature | + + + + + + | White Blood | 0-5 | 0 - 5 /hpf | [facility] | | | Cells, | | | [facility] | | | Urine | | | MEDICAL | | | | | | CENTER - | | | | | | LABORATORY | | + + + + + + | Red Blood | 50-100 (H) | 0 - 3 /hpf | [facility] | | | Cells, | | | [facility] | | | Urine | | | MEDICAL | | | | | | CENTER - | | | | | | LABORATORY | | + + + + + + | Squamous | RARE | FEW /hpf | [facility] | | | Epithelial | | | [facility] | | | Cells, | | | MEDICAL | | | Urine | | | CENTER - | | | | | | LABORATORY | | + + + + + + | Bacteria, | RARE | NONE /hpf | [facility] | | | Urine | | | [facility] | | | | | | MEDICAL | | | | | | CENTER - | | | | | | LABORATORY | | + + + + + + | Culture | YESComment: REFLEXED TO | | [facility] | | | Indicated | URINE CULTURE. | | [facility] | | | [...] | [facility] | [address] | [place] | [phone] | | [facility] | | [address] | | | - LABORATORY | | | | + + + + + | [facility] | [address] | [place] | | | [facility] | | [id number] | | | - LABORATORY | | | | + + + + + Urinalysis, Reflex Microscopic and/or Culture (01/15/2013 6:41 PM PST) + + + + + + | Component | Value | Ref Range | Performed | Pathologist | | | | | At | Signature | + + + + + + | COLLECTION | VOID | | [facility] | | | [facility] | | | [facility] | | | | | | MEDICAL | | | | | | CENTER - | | | | | | LABORATORY | | + + + + + + | Color, | YELLOW | | [facility] | | | Urine | | | [facility] | | | | | | MEDICAL | | | | | | CENTER - | | | | | | LABORATORY | | + + + + + + | Clarity | CLOUDY | | [facility] | | | | [...] + + + + | Bilirubin, | SMALL | NEGATIVE | [facility] | | | Urine | | | [facility] | | | | | | MEDICAL | | | | | | CENTER - | | | | | | LABORATORY | | + + + + + + | Ketones, | TRACE | NEGATIVE | [facility] | | | Urine | | | [facility] | | | | | | MEDICAL | | | | | | CENTER - | | | | | | LABORATORY | | + + + + + + | Specific | >=1.030 | 1.001 - 1.030 | [facility] | | | [place], | | | [facility] | | | Urine | | | MEDICAL | | | | | | CENTER - | | | | | | LABORATORY | | + + + + + + | Blood, | LARGE | NEGATIVE | [facility] | | | [...] + + + + | Protein, | 100 | NEGATIVE mg/dL | [facility] | | [...] + + + + | MICROSCOPIC | YES | | [facility] | | | ? [...] + | [facility] | [address] | [place], [place] | [phone] | | [facility] | | [address] | | | - LABORATORY | | | | + + + + + | [facility] | [address] | [place], [place] | | | [facility] | | [address] [place] [address] | | | - LABORATORY | | | | + + + + + documented in this encounter Visit Diagnoses Not on filedocumented in this encounter
--- OUTSIDE RECORDS SUMMARY | ~2019-07-17 | XMS | Encounter Summary ---
Demographics + + + | Address | [address] | | | [place] [address] | + + + | Home Phone | | + + + | Preferred Language | Unknown | + + + | Marital Status | | + + + | Jain Affiliation | Unknown | + + + | Race | Unknown | + + + | Ethnic Group | Unknown | + + + Author + + + | Author | [facility] | | | and [place] | + + + | Organization | [facility] | | | and [place] | + + + | Address | Unknown | + + + | Phone | Unavailable | + + + Support + + + + + | Name | Relationship | Address | Phone | + + + + + | Veronica Anderson | ECON | [place] | | | | | [address] | | + + + + + | Beatrice Paulson | ECON | [address] | | | | | [place] | | | | | [address] | | + + + + + Care Team Providers + +------+ + | Care Curtain Cleaner Name | Role | Phone | + +------+ + | Parvez Vail MD | PCP | | + +------+ + Encounter Details +--------+ + + + + | Date | Type | Department | Care Team | Description | +--------+ + + + + | 04/19/ | Hospital | [facility] | | No Show | | 2020 | Encounter | VASCULAR SURGERY | | | | | | ULTRASOUND [address] | | | | | | [address] | | | | | | [place] | | | | | | [address] | | | | | | [phone] | | | +--------+ + + + [...] | | | | | Lizzie Garcia [facility] | | | | | | [place] | | | | | | [address] | | | | | | | | +--------+---------+ + + + documented as of this encounter Visit Diagnoses Not on filedocumented in this encounter"
--- OUTSIDE RECORDS SUMMARY | ~2019-07-17 | XMS | Encounter Summary ---
Demographics + + + | Address | [address] | | | [place] [address] | + + + | Home Phone | | + + + | Preferred Language | Unknown | + + + | Marital Status | | + + + | Mu-Ism Affiliation | Unknown | + + + | Race | Unknown | + + + | Ethnic Group | Unknown | + + + Author + + + | Author | [facility] | | | and [place] | + + + | Organization | [facility] | | | and [place] | + + + | Address | Unknown | + + + | Phone | Unavailable | + + + Support + + + + + | Name | Relationship | Address | Phone | + + + + + | Veronica Anderson | ECON | [place] | | | | | [address] | | + + + + + | Beatrice Paulson | ECON | [address] | | | | | [place] | | | | | [address] | | + + + + + Care Team Providers + +------+ + | Care District Adviser Name | Role | Phone | + +------+ + | Parvez Vail MD | PCP | | + +------+ + Encounter Details +--------+ + + + + | Date | Type | Department | Care Team | Description | +--------+ + + + + | 04/02/ | Telephone | [facility] | Nery Rivero | | | 2019 | | CARDIOLOGY FAUSTO Franklin RN | | | | | [address] | | | | | | [place] | | | | | | [address] | | | | | | [phone] | | | +--------+ + + + [...] [address] | | | | | | [facility] | | | | | | [place] | | | | | | [address] | | | | | | | | +--------+---------+ + + + documented as of this encounter Visit Diagnoses Not on filedocumented in this encounter"
--- OUTSIDE RECORDS SUMMARY | ~2019-07-17 | XMS | Encounter Summary ---
Demographics + + + | Address | [address] | | | [place] [address] | + + + | Home Phone [...] [place] | | | | | [address] | | + + + + + | Beatrice Paulson | ECON | [address] | | | | | [place] | | | | | [address] | | + + + + + Care Team Providers + +------+ + | Care Gas Meter Repair Supervisor Name | Role | Phone | [...] + + | 02/17/ | Telephone | [facility] | Wilton Smith, | Other (HIP PAIN ) | | 2013 | | NEUROSURGERY [address] | DO [address] | | | | | [address] [facility] [address] | [address] [place], [place] | | | | | [place], [place] | [id number] | | | | | [address] | | | | | | [phone] | | | +--------+ + + + [...] [place] | | | | | | [address] | | | | | | | | +--------+---------+ + + + documented as of this encounter Visit Diagnoses Not on filedocumented in this encounter"
--- OUTSIDE RECORDS SUMMARY | ~2019-07-17 | XMS | Encounter Summary ---
Demographics + + + | Address | [address] | | | [place] [address] | + + + | Home Phone [...] [place] | | | | | [address] | | + + + + + | Beatrice Paulson | ECON | [address] | | | | | [place] | | | | | [address] | | + + + + + Care Team Providers + +------+ + | Care Director Of Player Personnel Name | Role | Phone | + +------+ + PCP | Unavailable | + +------+ + Encounter Details +--------+ + + + + | Date | Type | Department | Care Team | Description | +--------+ + + + + | 07/26/ | Hospital | [facility] | Justen Ribera | | | 2011 | Encounter | MED CTR XRAY [address] | F, [address] | | | | [place] | [address] [place], [place] | | | | | [place] [address] | [address] | | | | | [phone] | [phone] | | | | | | | [...] | | | | | [address] | | | | | | [place] | | | | | | [address] | | | | | | | [...] Performed At | + + + | [facility] Diagnostic Imaging Department | [facility] | | [address] | [facility] | | LUMBAR SPINE: 07/27/2011 | DIAG [...] Transcribed Date/Time: 07/27/2011 | | | 15:25 Hopper Feeder: <Electronically Signed by Mando Duncan | | | MD Celia> 08/02/11 0515 | | + + + + + | Procedure Note | + + | Bhavin, Rad Conversion - 03/20/2013 5:32 PM [facility] | | Diagnostic Imaging Department | | [address] | | | | | | | [...] | Transcribed Date/Time: 07/27/2011 15:25 | | Hopper Feeder: | | <Electronically Signed by Mando Yang MD> 08/02/11 0492 | + + + +---------+ + + [...] Performed At | + + + | [facility] Diagnostic Imaging Department | [facility] | | [address] | [facility] | | AP AND LATERAL VIEWS OF [...] | | 15:14 Transcribed Date/Time: 07/27/2011 15:26 Hopper Feeder: | | | <Electronically Signed by Mando Yang MD> 08/02/11 7706 | | + + + + + | Procedure Note | + + | Bhavin, Rad Conversion - 03/20/2013 5:32 PM [facility] | | Diagnostic Imaging Department [address] [place] [address] | | AP AND LATERAL VIEWS OF [...] 15:14 | |Transcribed Date/Time: 07/27/2011 15:26 | |Hopper Feeder: | |<Electronically Signed by Mando Yang MD> [...]
--- OUTSIDE RECORDS SUMMARY | ~2019-07-17 | XMS | Encounter Summary ---
Demographics + + + | Address | [address] | | | [place] [address] | + + + | Home Phone | | + + + | Preferred Language | Unknown | + + + | Marital Status | Single | + + + | Episcopalian Affiliation [...] Team Providers + +------+ + | Care Superintendent Pipelines Name | Role | Phone | + [...] [address] | | | | | [facility] | Yuri [place], | | | | | and Healing [address] | [place] [address] | | | | | Y[place] Mailcode: | [phone] | | | | | [address] | | | | | | Health and Healing, | | | | | | [facility] , [address]th | | | | | | [place], [place] | | | | | | [address] | | | | | | [phone] | | | +--------+ + + + [...]
--- OUTSIDE RECORDS SUMMARY | ~2019-07-17 | XMS | Encounter Summary ---
Demographics + + + | Address | [address] | | | [place] [address] | + + + | Home Phone | | + + + | Preferred Language | Unknown | + + + | Marital Status | | + + + | Scientologist Affiliation | Unknown | + + + | Race | Unknown | + + + | Ethnic Group | Unknown | + + + Author + + + | Author | [facility] | | | and [place] | + + + | Organization | [facility] | | | and [place] | + + + | Address | Unknown | + + + | Phone | Unavailable | + + + Support + + + + + | Name | Relationship | Address | Phone | + + + + + | Veronica Anderson | ECON | [place] | | | | | [address] | | + + + + + | Beatrice Paulson | ECON | [address] | | | | | [place] | | | | | [address] | | + + + + + Care Team Providers + +------+ + | Care Keyboard Specialist Name | Role | Phone | [...] + + | 05/25/ | Office | [facility] | Pranav Villar, [place] | Pseudoaneurysm | | 2020 | Visit | VASCULAR SURGERY | [address] | following procedure | | | | [address] | [place] | (HCC) (Primary Dx); | | | | [place] | [address] | Groin hematoma, | | | | [address] | | subsequent | | | | [phone] | | encounter; PAD | | | [...] Pranav Villar DNP - 05/26/2019 11:30 AM [facility] [address] [place] [place] [address] DATE OF VISIT: 05/26/2019 PATIENT NAME: Kassie Velasquez Marianela : 1940; AGE: 78 y.o.; Sex:F PHONE NUMBER: ; ; PROVIDER: Pranav Villar DNP PRIMARY CARE / REFERRING PHYSICIAN: No ref. provider found / Parvez Vail MD / [address] / [place] [address] REASON FOR EVALUATION / CHIEF COMPLAINT: Vascular [...] [address] | | | | | | [facility] | | | | | | [place] | | | | | | [address] | | | | | | | | +--------+---------+ + + + documented as of this encounter Visit Diagnoses + + | Diagnosis | + + | Pseudoaneurysm following procedure (HCC) - Primary Vascular complications of other | | vessels | + + | Groin hematoma, subsequent encounter | + + | PAD (peripheral artery disease) ([facility]) Unspecified disorders of arteries and | | arterioles | + + documented in this encounter"
--- OUTSIDE RECORDS SUMMARY | ~2019-07-17 | XMS | Encounter Summary ---
Demographics + + + | Address | [address] | | | [place] [address] | + + + | Home Phone | | + + + | Preferred Language | Unknown | + + + | Marital Status | | + + + | Moravian Affiliation | Unknown | + + + | Race | Unknown | + + + | Ethnic Group | Unknown | + + + Author + + + | Author | [facility] | | | and [place] | + + + | Organization | [facility] | | | and [place] | + + + | Address | Unknown | + + + | Phone | Unavailable | + + + Support + + + + + | Name | Relationship | Address | Phone | + + + + + | Veronica Anderson | ECON | [place] | | | | | [address] | | + + + + + | Beatrice Paulson | ECON | [address] | | | | | [place] | | | | | [address] | | + + + + + Care Team Providers + +------+ + | Care Any Commodity Buyer Name | Role | Phone | + +------+ + | Venkata Pettit MD | PCP | | + +------+ + Reason for Visit + + + | Reason | Comments | + + + | New Medication | | | Request | | + + + Encounter Details +--------+ + + + + | Date | Type | Department | Care Team | Description | +--------+ + + + + | 03/09/ | Telephone | [facility] | Wilton Smith, | New Medication | | 2016 | | NEUROSURGERY [address] | DO [address] | Request | | | | [address] | [address] [place], [place] | | | | | [place], [place] | [address] | | | | | [address] | | | | | | [phone] | | | +--------+ + + + [...] [place] | | | | | | [address] | | | | | | | | +--------+---------+ + + + documented as of this encounter Visit Diagnoses Not on filedocumented in this encounter"
--- OUTSIDE RECORDS SUMMARY | ~2019-07-17 | XMS | Encounter Summary ---
Demographics + + + | Address | [address] | | | [place] [address] | + + + | Home Phone [...] [place] | | | | | [address] | | + + + + + | Beatrice Paulson | ECON | [address] | | | | | [place] | | | | | [address] | | + + + + + Care Team Providers + +------+ + | Care Contract Associate Manager Name | Role | Phone | [...] | Stress Test | Nathaniel Garcia | [place], [place] | | | | | (Vasodilator | [facility], | [address] | | | | | ) | [place] [address] | Phone: | | | | | | Phone: | [phone] | | | | | | [phone] | Fax: | | | | | | Fax: | [phone] | | | | | | [phone] | | +--------+--------+ + + + + [...] | | NM Nuclear | [address] | [address] | | | | | Stress Test | Nathaniel Garcia F | [place], [place] | | | | | (Vasodilator | [place], | [address] | | | | | ) | [place] [address] | Phone: | | | | | | Phone: | [phone] | | | | | | [phone] | Fax: | | | | | | Fax: | [phone] | | | | | | [phone] | | +--------+--------+ + + + + Encounter Details +--------+ + + + + | Date | Type | Department | Care Team | Description | +--------+ + + + + | 03/16/ | Hospital | [facility] | Elvin Jamil | Chest discomfort | | 2020 | Encounter | CARDIOLOGY [place] | MD [address] | | | | | NUC MED [address] | [address] | | | | | [address] | [place], [place] | | | | | [place], [place] | [address] | | | | | [address] | | | | | | [phone] | | | +--------+ + + + [...] 1100 | | | | | | [facility] | | | | | | [place] | | | | | | [address] | | | | | | | [...] + | Diagnosis | + + | Chest discomfort Other chest pain | + + documented in this encounter Administered Medications + +--------+ +--------+------+------+ | Medication Order | MAR | Action | Dose | Rate | Site | | | Action | Date | | | | + +--------+ +--------+------+------+ | regadenoson (LEXISCAN) | Given | 03/16/19 | 0.4 mg | | | | injection 0.4 mg 0.4 mg, | | 20 3:15 | | | | | Intravenous, ONCE, 03/16/19 at | | PM PST | | | | | 1515, For 1 dose, Give IV push | | | | | | | over 10 seconds, then follow | | | | | | | immediately with 5 mL saline | | | | | | | flush., Nuclear Medicine | | | | | | + +--------+ +--------+------+------+ +---+---+ | | | +---+---+ + +-------+ + +---+---+ | technetium TC-99M sestamibi | Given | 03/16/19 | 34.6 | | | | (CARDIOLITE) injection 34.6 | | 20 3:15 | millicur | | | | millicurie 34.6 millicurie, | | PM PST | ies | | | | Intravenous, ONCE, Sat03/16/19 at | | | | | | | 1515, For 1 dose, Nuclear | | | | | | | Medicine | | | | | | + +-------+ + +---+---+ +---+---+ | | | +---+---+ documented in this encounter"
--- OUTSIDE RECORDS SUMMARY | ~2019-07-17 | XMS | Encounter Summary ---
Demographics + + + | Address | [address] | | | [place] [address] | + + + | Home Phone [...] [place] | | | | | [address] | | + + + + + | Beatrice Paulson | ECON | [address] | | | | | [place] | | | | | [address] | | + + + + + Care Team Providers + +------+ + | Care Diversional Therapist Name | Role | Phone | + [...] | Lumbar | Stephan, | [address] | | | | | spondylosis | Olayinka Duncan MD | [place], | | | | | Procedures | [address] | [place] | | | | | PA INJ | [facility] | [address] | | | | | DX/THER AGNT | [facility], [place] | Phone: | | | | | [place] | [address] | [phone] | | | | | FACET JOINT, | Phone: | Fax: | | | | | LUMBAR/SAC, | [phone] | [phone] | | | | | 1ST LEVEL | Fax: | | | | | | HC PA | [phone] | | | | | | TRIAMCINOLON [...] + + | 05/01/ | Hospital | [facility] | Michelle, | 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 | Encounter | MED CTR XRAY [address] | [address] | lumbar region | | | | [place] | [facility] [address] | (Primary Dx); | | | | [place] [address] | [place] [address] | 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 | [address] | [place] | [phone] | | [facility] | | [address] | | | - IMAGING | | [...]
--- OUTSIDE RECORDS SUMMARY | ~2019-07-17 | XMS | Encounter Summary ---
Demographics + + + | Address | [address] | | | [place] [address] | + + + | Home Phone | | + + + | Preferred Language | Unknown | + + + | Marital Status | Single | + + + | Moravian Affiliation | Unknown | + + + | Race | White | + + + | Ethnic Group | Not or | + + + Author + + + | Author | [facility] | + + + | Organization | [facility] | + + + | Address | Unknown | + + + | Phone | Unavailable | + + + Support + + +---------+ + | Name | Relationship | Address | Phone | + + +---------+ + | Beatrice Paulson | ECON | Unknown | | + + +---------+ + Care Team Providers + +------+ + | Care Grocery Specialist Name | Role | Phone | + +------+ + | Venkata Pettit MD | PCP | | + +------+ + Encounter Details +--------+------+ + + + | Date | Type | Department | Care Team | Description | +--------+------+ + + + | 10/08/ | Lab | Laboratory at [facility] | | Myalgia | | 2012 | | [address] | | | | | | [place], [place] | | | | | | [address] | | | | | | [phone] | | | +--------+------+ + + + [...] | | | | immunofixation | | [place] | | | | electrophoresis. | | | | + + + + + + + + | Specimen | + + | Blood - Blood | + + + + + + + | Performing | Address | City/State/Zipcode | Phone Number | | Organization | | | | + + + + + | [facility] | [address] | [place] [address] | | | [place] | | | [...] + | [facility] | [address] | [place] [address] | | | [place] | | | [...] by | | | | | | [employer],[address] | | | | | | Dipak Rojas, [facility] | | | | | | [address] | | | | | | [phone].Nema Labsl[employer]. | | | | | | Uche [...] [facility] | [address] | [place], [place] | | | [facility] | | [address] | | + + + + + [...] + | [facility] | [address] | [place] [address] | | | [place] | | | | + + + + + documented in this encounter Visit Diagnoses + + | Diagnosis | + + | Myalgia Mylagia and myositis, unspecified | + + documented in this encounter"
--- OUTSIDE RECORDS SUMMARY | ~2019-07-17 | XMS | Encounter Summary ---
Demographics + + + | Address | [address] | | | [place] [address] | + + + | Home Phone | | + + + | Preferred Language | Unknown | + + + | Marital Status | | + + + | Cheondoism Affiliation | Unknown | + + + [...] [place] | | | | | [address] | | + + + + + | Beatrice Paulson | ECON | [address] | | | | | [place] | | | | | [address] | | + + + + + Care Team Providers + +------+ + | Care Tripe Finisher Name | Role | Phone | [...] | Stress Test | Nathaniel Garcia | [place], [place] | | | | | (Vasodilator | [facility], | [address] | | | | | ) | [place] [address] | Phone: | | | | | | Phone: | [phone] | | | | | | [phone] | Fax: | | | | | | Fax: | [phone] | | | | | | [phone] | | +--------+--------+ + + + + [...] | | NM Nuclear | [address] | [address] | | | | | Stress Test | Nathaniel Garcia F | [place], [place] | | | | | (Vasodilator | [place], | [address] | | | | | ) | [place] [address] | Phone: | | | | | | Phone: | [phone] | | | | | | [phone] | Fax: | | | | | | Fax: | [phone] | | | | | | [phone] | | +--------+--------+ + + + + Encounter Details +--------+ + + + + | Date | Type | Department | Care Team | Description | +--------+ + + + + | 03/16/ | Hospital | [facility] | Elvin Jamil | Chest discomfort | | 2020 | Encounter | CARDIOLOGY [place] | MD [address] | | | | | NUC MED [address] | RejiethalNathaniel Steiner | | | | | [address] | [place], [place] | | | | | [place], [place] | [address] | | | | | [address] | | | | | | [phone] | | | +--------+ + + + [...] 1100 | | | | | | [facility] | | | | | | [place] | | | | | | [address] | | | | | | | [...]
--- OUTSIDE RECORDS SUMMARY | ~2019-07-17 | XMS | Encounter Summary ---
Demographics + + + | Address | [address] | | | [place] [address] | + + + | Home Phone [...] [place] | | | | | [address] | | + + + + + | Beatrice Paulson | ECON | [address] | | | | | [place] | | | | | [address] | | + + + + + Care Team Providers + +------+ + | Care Diesel Service Apprentice Name | Role | Phone | [...] | | | | | disease) | [place], [place] | | | | | | (HCC) | [address] | | | | | | Procedures | Phone: | | | | | | VAS Lwr Ext | [phone] | | | | | | Art Lt w CHRIS | Fax: | | | | | | Multi Lvl | [phone] | | +--------+--------+ + + + + Encounter Details +--------+ + + + + | Date | Type | Department | Care Team | Description | +--------+ + + + + | 04/26/ | Hospital | [facility] | | PAD (peripheral | | 2020 | Encounter | VASCULAR SURGERY | | artery disease) | | | | ULTRASOUND [address] | | [facility] | | | | [address] | | | | | | [place], [place] | | | | | | [address] | | | | | | [phone] | | | +--------+ + + + [...] [place] | | | | | | [address] | | | | | | | [...] | MULTI LEVEL | | PDT | ([facility]) | results section. | + +--------+ + + + documented in this encounter Results VAS Lwr Ext Art [...] | | | [place] Signed by: Na Blanco Shawn Sign Date/Time: [...] | | | analysis: Left lower extremity: BRUSH WASHER prox: 196, triphasic DFA | | | prox: 141, triphasic SFA prox: 152, triphasic SFA Mid: 99, triphasic | | | SFA dist: 96, triphasic Pop mid: 114, triphasic CARLOS prox: 106, | | | triphasic CARLOS dist: 97, triphasic ANATOMIC PATHOLOGY ASSISTANT prox: 101, triphasic ANATOMIC PATHOLOGY ASSISTANT | | | dist: 53, triphasic Peroneal [...] | | Left lower extremity: | | BRUSH WASHER prox: 196, triphasic | | DFA prox: 141, triphasic | | SFA prox: 152, triphasic | | SFA Mid: 99, triphasic | | SFA dist: 96, triphasic | | Pop mid: 114, triphasic | | CARLOS prox: 106, triphasic | | CARLOS dist: 97, triphasic | | ANATOMIC PATHOLOGY ASSISTANT prox: 101, triphasic | | ANATOMIC PATHOLOGY ASSISTANT dist: 53, triphasic | | Peroneal prox: [...] + | PAD (peripheral artery disease) (HCC) Unspecified disorders of arteries and | | arterioles | + + documented in this encounter"
--- OUTSIDE RECORDS SUMMARY | ~2019-07-17 | XMS | Encounter Summary ---
Demographics + + + | Address | [address] | | | [place] [address] | + + + | Home Phone [...] [place] | | | | | [address] | | + + + + + | Beatrice Paulson | ECON | [address] | | | | | [place] | | | | | [address] | | + + + + + Care Team Providers + +------+ + | Care Warehouse Engineer Name | Role | Phone | + +------+ + | Venkata Pettit MD | PCP | | + +------+ + Encounter Details +--------+ + + + + | Date | Type | Department | Care Team | Description | +--------+ + + + + | 01/20/ | Hospital | [facility] | Wilton Smith, | Status post lumbar | | 2015 | Encounter | MED CTR XRAY [address] | DO [address] | spinal fusion; Back | | | | [place] | [address] [place], [place] | pain, unspecified | | | | [place] [address] | [id number] | back pain | | | | [phone] | | laterality, | | | | | | unspecified location | +--------+ + + + + Social [...] | | | | | | [facility] | | | | | | [place] | | | | | | [address] | | | | | | | | +--------+---------+ + + + documented as of this encounter Procedures + +--------+ + + + | Procedure Name | Priori | Date/Time | Associated Diagnosis | Comments | | | ty | | | | + +--------+ + + + | XR LUMBAR SPINE 4 + | Routin | 01/20/2015 | Status post lumbar | Results for this | | VW | e | 2:48 PM | spinal fusion Back | procedure are in the | | | | PST | pain, unspecified | results section. | | | | | back pain | | | | | | laterality, | | | | | | unspecified location | | + +--------+ + + + documented in this encounter Results XR Lumbar Spine 4 + Vw (01/20/2015 2:48 PM PST) + + | Specimen | + + | | + + + + + | Narrative | Performed At | + + + | EXAM: XR LUMBAR SPINE 4 + VW dated 01/20/2015 2:19 PM | [facility] | | HISTORY:back pain; history of lumbar fusion COMPARISON: Lumbar | [facility] | | spine radiographs dating to February 13, 2013. FINDINGS:4 views of | [facility] | | the lumbar spine. Posterior and [...] | + + + + + | [facility] | [address] | [place] | [phone] | | [facility] | | [address] | | | - IMAGING | | | | + + + + + documented in this encounter Visit Diagnoses + + | Diagnosis | + + | Status post lumbar spinal fusion Arthrodesis status | + + | Back pain, unspecified back pain laterality, unspecified location | + + documented in this encounter"
--- OUTSIDE RECORDS SUMMARY | ~2019-07-17 | XMS | Encounter Summary ---
Demographics + + + | Address | [address] | | | [place] [address] | + + + | Home Phone | | + + + | Preferred Language | Unknown | + + + | Marital Status | | + + + | Druze Affiliation | Unknown | + + + [...] [place] | | | | | [address] | | + + + + + | Beatrice Paulson | ECON | [address] | | | | | [place] | | | | | [address] | | + + + + + Care Team Providers + +------+ + | Care Nicker And Breaker Name | Role | Phone | + +------+ + | Venkata Pettit MD | PCP | | + +------+ + Encounter Details +--------+ + + + + | Date | Type | Department | Care Team | Description | +--------+ + + + + | 05/08/ | Hospital | [facility] | Stephan Olayinka | | | 2012 - | Encounter | MED CTR XRAY [address] | T, [address] | | | | | [place] | [place] | | | 05/10/ | | [place] [address] | [address] | | | 2012 | | [phone] | | | +--------+ + + + [...] [place] | | | | | | [address] | | | | | | | [...] At | + + + | [facility] Diagnostic Imaging | [facility] | | Department [address] [place] [address] | [facility] | | [ rep [address]] [ rep [facility] | | [facility]] Signed | - IMAGING | | | | | Patient Name: KASSIE BEAR Physician: | | | DOC : 1940 Age: 71 Sex: F Unit #: [id number] | | | Exam Date: 05/08/12 Location: [facility] | | | Report #: [id number] Page: | | | %(RAD)RES..mtdd.print.filter("pg") of %(RAD) | | | RES..mtdd.print.filter("tpg") | | | | | | Accession Number: [id number] | | | [facility] JOINT INJECTION CLINICAL [...] Transcribed Date/Time: 05/08/2012 | | | 22:11 Airplane Navigator: <<Signature | | | on File>> | | | Olayinka Duncan | | | MD Stephan05/09/12 0025 <Electronically signed by Olayinka Duncan | | | [place]> Olayinka Rothman MD 05/08/12 1749 | | | Airplane Navigator: Sujatha Xnrwfyfnhsefn64/28/13 2211 | | | | | + + + + + + + + | Performing | Address | City/State/Zipcode | Phone Number | | Organization | | | | + + + + + | [facility] | [address] | [place] | [phone] | | [facility] | | [address] | | | - IMAGING | | | | + + + + + documented in this encounter Visit Diagnoses Not on filedocumented in this encounter
--- OUTSIDE RECORDS SUMMARY | ~2019-07-17 | XMS | Encounter Summary ---
Demographics + + + | Address | [address] | | | [place] [address] | + + + | Home Phone [...] [place] | | | | | [address] | | + + + + + | Beatrice Paulson | ECON | [address] | | | | | [place] | | | | | [address] | | + + + + + Care Team Providers + +------+ + | Care Director Of Assessment Name | Role | Phone | + [...] + + | 02/13/ | [facility] | Wilton Smith, | Status post lumbar | | 2014 | Visit | NEUROSURGERY [address] | DO [address] | spinal fusion | | | | [address] | [address] [place], [place] | (Primary Dx) | | | | [place], [place] | [address] | | | | | [address] | | | | | | [phone] | | | +--------+---------+ + + + [...] m the original. Wilton Smith, DO [address] [facility], [address] [place], [place] [id number] FAX: NEUROSURGERY SURGICAL FOLLOW-UP CHIEF COMPLAINT: Chief [...] | | | | | | [facility] | | | | | | [place] | | | | | | [address] | | | | | | | | +--------+---------+ + + + documented as of this encounter Results XR Lumbar Spine 2 or 3 Vw (04/15/2013 12:52 PM PST) + + | Specimen | + + | | + + + + + | Narrative | Performed At | + + + | [facility] | [facility] | | Department [address], [place] | [place] | | [ rep [address]] [ rep ct [facility] | | st zip] Signed | - IMAGING | | | | | Patient Name: HEMANT CUMMINSYCSaeed Alarcon Physician: | | | SYL. : 1940 Age: 72 Sex: F Unit #: [id number] | | | Exam Date: 04/15/13 [place] [facility] [place] | | Report #: [id number] Page: | | | %(RAD)RES..mtdd.print.filter("pg") of %(RAD) | | | RES..mtdd.print.filter("tpg") | | | | | | Accession Number: [id number] | | | LUMBAR SPINE LIMITED CLINICAL [...] Transcribed Date/Time: 04/15/2013 13:01 | | | Plisse Machine Operator: <<Signature on File>> | | | | | | Mando Yang MD04/15/13 2568 <Electronically signed by Mando Duncan | | | Celia [place]> Mando Yang MD 04/15/13 6962 | | | Plisse Machine Operator: Vuclip [id number]/05/14 1301 | | | Wilton Smith, DO | | + + + + + + + + | Performing | Address | City[facility] | Phone Number | | Organization | | | | + + + + + | [facility] | [address] [facility]. | [place], [place] | [phone] | | [facility] | | [address] | | | - IMAGING | | | | + + + + + XR Lumbar Spine 2 or 3 Vw (02/13/2013 10:25 AM PST) + + | Specimen | + + | | + + + + + | Narrative | Performed At | + + + | [facility] | [place] | | Department [address] , [place] | [place] | | [ rep [address]] [ rep ct [facility] | | st zip] Signed | - IMAGING | | | | | Patient Name: KASSIE CUMMINS Physician: | | | SYL. : 1940 Age: 72 Sex: F Unit #: [id number] | | | Exam Date: 02/13/13 [place] [facility] [place] | | | Report #: [id number] Page: | | | %(RAD)RES..mtdd.print.filter("pg") of %(RAD) | | | RES..mtdd.print.filter("tpg") | | | | | | Accession Number: [id number] | | | LUMBAR SPINE, 02/13/2013 CLINICAL [...] Transcribed Date/Time: | | | 02/13/2013 10:47 Plisse Machine Operator: | | | <<Signature on File>> | | | | | | Michael Lopez MD02/13/13 1442 <Electronically signed by | | | Michael Lopez MD> Michael Lopez MD 02/13/13 | | | 1025 Plisse Machine Operator: Vuclip [id number]/03/14 1047 | | | Wilton Smith DO | | + + + + + + + + | Performing | Address | City/State/Zipcode | Phone Number | | Organization | | | | + + + + + | [facility] | [address] | [place] | [phone] | | [facility] | | [address] | | | - IMAGING | | | | + + + + + documented in this encounter Visit Diagnoses + + | Diagnosis | + + | Status post lumbar spinal fusion - Primary Arthrodesis status | + + documented in this encounter
--- OUTSIDE RECORDS SUMMARY | ~2019-07-17 | XMS | Encounter Summary ---
Demographics + + + | Address | [address] | | | [place] [address] | + + + | Home Phone | | + + + | Preferred Language | Unknown | + + + | Marital Status | | + + + | Pentecostal Affiliation | Unknown | + + + | Race | Unknown | + + + | Ethnic Group | Unknown | + + + Author + + + | Author | [facility] | | | and [place] | + + + | Organization | [facility] | [...] [place] | | | | | [address] | | + + + + + | Beatrice Paulson | ECON | [address] | | | | | [place] | | | | | [address] | | + + + + + Care Team Providers + +------+ + | Care Fitness Plan Coordinator Name | Role | Phone | + +------+ + PCP | Unavailable | + +------+ + Encounter Details +--------+ + + + + | Date | Type | Department | Care Team | Description | +--------+ + + + + | 05/19/ | Hospital | [facility] | Justen Ribera | | | 2009 | Encounter | [facility] | MD Kamla [address] | | | | | [address] [place] | [address] [place], [place] | | | | | [place], [place] | [address] | | | | | [address] | [phone] | | | | [phone] | | | +--------+ + + + [...] [place] | | | | | | [address] | | | | | | | | +--------+---------+ + + + documented as of this encounter Visit Diagnoses Not on filedocumented in this encounter"
--- OUTSIDE RECORDS SUMMARY | ~2019-07-17 | XMS | Encounter Summary ---
Demographics + + + | Address | [address] | | | [place] [address] | + + + | Home Phone | | + + + | Preferred Language | Unknown | + + + | Marital Status | | + + + | Zoroastrian Affiliation [...] [place] | | | | | [address] | | + + + + + | Beatrice Paulson | ECON | [address] | | | | | [place] | | | | | [address] | | + + + + + Care Team Providers + +------+ + | Care Electronic Pagination System Operator Name | Role | Phone | [...] + + | 07/14/ | Telephone | [facility] | Pranav Villar, [place] | Appointment (07/20/19) | | 2020 | | VASCULAR SURGERY | [address] | | | | | [address] | [place], [place] | | | | | [place], [place] | [address] | | | | | [address] | | | | | | [phone] | | | +--------+ + + + [...] [place] | | | | | | [address] | | | | | | | | +--------+---------+ + + + documented as of this encounter Visit Diagnoses Not on filedocumented in this encounter"
--- OUTSIDE RECORDS SUMMARY | ~2019-07-17 | XMS | Encounter Summary ---
Demographics + + + | Address | [address] | | | [place] [address] | + + + | Home Phone | | + + + | Preferred Language | Unknown | + + + | Marital Status | | + + + | Mu-Ism Affiliation | Unknown | + + + | Race | Unknown | + + + | Ethnic Group | Unknown | + + + Author + + + | Author | [facility] | | | and [place] | + + + | Organization | [facility] | | | and [place] | + + + | Address | Unknown | + + + | Phone | Unavailable | + + + Support + + + + + | Name | Relationship | Address | Phone | + + + + + | Veronica Anderson | ECON | [place] | | | | | [address] | | + + + + + | Beatrice Paulson | ECON | [address] | | | | | [place] | | | | | [address] | | + + + + + Care Team Providers + +------+ + | Care Locker Room Manager Name | Role | Phone | + +------+ + | Venkata Pettit MD | PCP | | + +------+ + Reason for Visit + + + | Reason | Comments | + + + | Follow-up | Pre-Op | + + + Encounter Details +--------+---------+ + + + | Date | Type | Department | Care Team | Description | +--------+---------+ + + + | 12/31/ | [facility] | Felipe Hernandez, | Lumbar spine | | 2012 | Visit | NEUROSURGERY [address] | PA-C [address] | instability (Primary | | | | [address] | [place], [place] | Dx); | | | | [place], [place] | [address] | Spondylolisthesis of | | | | [address] | | lumbar region; DDD | | | | [phone] | | (degenerative disc | | | | | | disease), lumbar; | | | | | | Lumbar stenosis | +--------+---------+ + + + Social History [...] + + + | Blood Pressure | 131/70 | 12/31/2012 10:08 AM | | | | | PST | | + + + + + | Pulse | 62 | 12/31/2012 10:08 AM | | | | | PST | | + + + + + | Temperature | - | - | | + + + + + | Respiratory Rate | 18 | 12/31/2012 10:08 AM | | | | | PST | | + + + + + | Oxygen Saturation | - | - | | + + + + + | Inhaled Oxygen | - | - | | | Concentration | | | | + + + + + | Weight | 123.8 kg (273 lb) | 12/31/2012 10:08 AM | | | | | PST | | + + + + + | Height | 172.7 cm (5' 8") | 12/31/2012 10:08 AM | | | | | PST | | + + + + + | Body Mass Index | 41.51 | 12/31/2012 10:08 AM | | | | | PST | | + + + + + documented in this encounter Patient Instructions Patient Instructions Felipe Hernandez PA-C - 12/31/2012 10:12 AM PSTYou are scheduled to have a lumbar fusion from L1-L5. No aspirin or antiinflammatories 5-7 days before surgery. documented in this encounter Progress Notes Felipe Hernandez PA-C - 12/31/2012 10:10 AM PST Felipe Hernandez PA-C [address] [facility], [address] [place] [address] FAX: NEUROSURGERY HISTORY AND PHYSICAL EXAMINATION CHIEF COMPLAINT: Chief Complaint Patient presents with Follow-up Pre-Op HISTORY OF PRESENT ILLNESS: The patient is a 72 y.o. female who is here today for her preo perative visit for her scheduled lumbar fusion from L1-L5. She continues to have the compla int of back that began about 4 years ago. The symptoms began insidiously. Since that time the patient feel her pain has been worsening. She rates the pain as 8 on scale of 1-10. Sh e describes the pain as a aching feeling. [...] been doing physical therapy, but the therapist erin els like she is not making any more progress. She noticed that this started after bending ov er to pick something up. She is noticing that it is progressively harder to walk up stairs. She did have an L3-[address] Ribera last year. It helped the symptoms for a while, but they returned a few months after. She has been cleared for surgery by her PCP, Dr. Pettit. Her symptoms improve with rest. Her symptoms [...] Prescriptions on File Prior to Visit Medication Sig Dispense Refill carvedilol (COREG) 12.5 mg tablet Take 12.5 mg by mouth 2 times daily (with breakfast & dinner). Cholecalciferol (VITAMIN D3 PO) Take 4,000 Units by mouth Daily. GABAPENTIN PO Take by mouth. Taking 600mg in qam and 900mg in qpm. Magnesium 250 MG TABS Take 250 mg by mouth Daily. NAPROXEN Take 220 mg by mouth 2 times daily. ALLERGIES: Allergies Allergen Reactions Pregabalin SOCIAL HISTORY: [...] joint arthritis, no rheumatoid arthritis. PHYSICAL EXAMINATION: Height 1.727 m (5' 8"), weight 123.832 kg (273 lb). Body mass index is 41.51 kg/(m^2). GENERAL: Kassie Cummins is in no [...] has no apparent deficits with short or intermodal dispatcher memory. CRANIAL NERVES: II: Acuity is intact. 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 I am more concerned about her lower extremity weakn ess and spasticity that has been present for [...] and then plan for TLIF L1-L5. She has been cleared for surgery by Dr. Pettit. She understands the nature of the surgery and that it will likely be a long recovery. She is prepared for this and would like to continue with her surgical planning. All her questio ns were answered at today's visit. She states that she becomes extremely nauseous after surgery and would like the anesthesiol ogist to be aware of this. I spent 1 hour in visit with Kassie Cummins today with the majority of time spent counsell ing the patient on her diagnosis, options for her care, and coordinating her care. ELECTRONICALLY SIGNED BY: Felipe Hernandez PA-C, 12/31/2012 10:10 documented in this encounter Plan of Treatment +--------+---------+ + + + | Date | Type | Specialty | Care Team | Description | +--------+---------+ + + + | 10/06/ | Office | Cardiology | Elvin Jamil | | | 2019 | Visit | | MD [address] | | | | | | [facility] | | | | | | [place], [place] | | | | | | [address] | | | | | | | | +--------+---------+ + + + documented as of this encounter Visit Diagnoses + + | Diagnosis | + + | Lumbar spine instability - Primary | + + | Spondylolisthesis of lumbar region Acquired spondylolisthesis | + + | DDD (degenerative disc disease), lumbar Degeneration of lumbar or lumbosacral | | intervertebral disc | + + | Lumbar stenosis Spinal stenosis, lumbar region, without neurogenic claudication | + + documented in this encounter
--- OUTSIDE RECORDS SUMMARY | ~2019-07-17 | XMS | Encounter Summary ---
Demographics + + + | Address | [address] | | | [place] [address] | + + + | Home Phone [...] [place] | | | | | [address] | | + + + + + | Beatrice Paulson | ECON | [address] | | | | | [place] | | | | | [address] | | + + + + + Care Team Providers + +------+ + | Care Family Living Educator Name | Role | Phone | + [...] | | | | sm ([facility]) | | | | | | | Essential | | | | | | | hypertension | | | | | | | Chronic | | | | | | | atrial | | | | | | | fibrillation | | | | | | | ([facility]) | | | | | | | Decreased | | | | | | | hemoglobin | | | | | | | Pseudoaneury | | | | | | | sm following | | | | | | | procedure | | | | | | | ([facility]) | | | | | | | [...] + + | 04/04/ | Surgery | [facility] | Breana Mullen | ENDARTERECTOMY | | 2019 | | [facility] | I, DO [address] | FEMORAL Will need | | | | OPERATING ROOM [address] | [address] | arteriogram in IR | | | | [address] | [place] [address] | initially under | | | | [place], [place] | [phone] | moderate sedation | | | | [address] | | and if not amenable | | | | [phone] | | to stenting then | | [...] MD - 04/10/2019 8:50 AM PST [facility]: Hospitalist Discharge Summary Date of Admission: [...] 49* 48* Radiology No results found. Disposition: correction Condition: Fair Code Status: Full Code Discharge Procedure Orders Ambulatory Referral to [facility] Vascular Surgery Referral Priority: Routine Referral Type: Evaluate & Treat Referral Reason: Specialty Services Required Referred to Provider: BRIDGETTE LOPEZ Requested Specialty: Vascular Surgery Number of Visits Requested: 1 Follow up: Elvin Jamil MD [address] [place] [address] On 05/04/2019 Parvez Vail MD [address] [facility] [id number] In 1 week [facility] [address] [facility] [id number] Breana Mullen DO [address] [place] [id number] In 2 weeks Discharge Medications New Medications [...] MD - 04/09/2019 3:16 PM PST [facility]: Hospitalist Discharge Summary Date of Admission: [...] hours. No results for input(s): PHART, PO2ART, VKJ9QCR, [id number], BEART in the last 168 hours. Recent Labs Lab 04/09/19 0418 04/08/19 0421 04/07/19 0534 INR 1.2 1.1 1.1 PTT 33* 49* 48* No results for input(s): TSH in the last 168 hours. Invalid input(s): T3FREE, FREET4 No results for input(s): TROPONINT in the last 168 hours. Invalid input(s): CKTOTAL, TROPONINI, CKMBINDEX Radiology No results found. Disposition: correction Condition: Fair Code Status: Full Code No discharge procedures on file. Follow up: Elvin Jamil MD [address] [place] [address] On 05/04/2019 Parvez Vail MD [address] [facility] [address] In 1 week [facility] [address] [facility] [id number] Discharge Medications New Medications Details enoxaparin 120 [...] 3:26 PM PSTPatient's discharge was delayed because [facility] did not have an opening today patient will be discharged to [facility] if she is medically stable. Received a call from Dr. Peters who advised to pack RBC transfusion to get a hemoglobin c lose to 9. roctor, Shekhar Duncan [facility] - 04/09/2019 2:45 PM PSTFormatting of this [...] PharmD, BCPS 04/09/19 2:43 PM Iam Bustillo, [facility] - 04/09/2019 7:48 AM PSTFormatting of this [...] fib post ablati on s/p DCCV with mandaeism of SR. Patient awake and alert seated [...] with the findings and plan of the [facility] practice provider/house staff with [...] Colbert MD - 2:17 PM PST [facility]: Hospitalist Progress Note Hospital Day: LOS: [...] hours. No results for input(s): PHART, PO2ART, VOW9SYL, Y8TUMKFM, BEART in the last 168 hours. Recent [...] 04/08/2019 2:17 PM ris Thayer, [facility] - 04/08/2019 1:07 PM PSTFormatting of this [...] modify therapy as indicated. Kizzy Thayer, PharmD, [facility] 04/08/19 1:02 PM Wen Barragan RN - 04/08/2019 11:55 AM PST [facility]: Wound Care NPWT Note Hospital Day: [...] able, plan to follow up in Vascular [facility] clinic in 2 weeks or sooner if [...] in dextrose 100 units/mL infusion 12 Units/kg/hr ([place]) Intravenous Continuou s Breana Mullen, DO 10.2 [...] - Warfarin Hany Alarcon Raffi, [facility] 5 mg a t 04/07/191731 warfarin per [...] 04/07 with successful and thus far maintained mandaeism of sinus rhythm - converted to oral [...] with the findings and plan of the [facility] practice provider/house staff with [...] I DO - 04/07/2019 8:00 PM PST [place] [...] Patient has been stable on home regimen [employer] Heparin infusion: therapeutic aPTT in the past [...] be different from th e original. [facility]: Hospitalist Progress Note Hospital Day: LOS: [...] hours. No results for input(s): PHART, PO2ART, OOL4YNJ, G6XRXQOB, BEART in the last 168 hours. Recent [...] might be different from the o raulito. [facility]: Wound Care NPWT Note Hospital Day: [...] - 04/06/2019 1:40 PM PST . [facility]: Hospitalist Progress Note Hospital Day: LOS: 3 days SUBJECTIVE Patient Summary: Events Overnight: Patient reports left thigh pain. Denies any chest pain shortness of breath nausea vomiting. Overnight went into A. fib. Feels constipated. Scheduled Medications atenolol 50 mg Oral Daily cholecalciferol 4,000 Units Oral Daily cyanocobalamin 500 mcg Oral Daily docusate-senna 2 tablet Oral BID mineral lpv-odsxtpwg-mlhvj (HOG) enema Rectal Once lidocaine 10 mL [...] hours. No results for input(s): PHART, PO2ART, VDF2ONX, Z6KWTVRY, BEART in the last 168 hours. Recent [...] 04/06/2019 1:40 PM ris Thayer, [facility] - 04/06/2019 11:41 AM PSTFormatting of this [...] and modify therapy as indication. Geoffrey VelezD, [facility] 04/06/19 11:41 AM Breana Kumar DO [...] might be different from t dustin original. [facility] Progress Note Primary [...] 04/05/2019 2:27 PM PST Pharmacy Warfarin Monitoring: aKssie Bear female 78 y.o. Pharmacy consulted to [...] MD - 04/05/2019 12:54 PM PST [facility]: Hospitalist Progress Note Hospital Day: LOS: [...] hours. No results for input(s): PHART, PO2ART, XCV6BPO, A5RTDVLP, BEART in the last 168 hours. Recent [...] be different from the or iginal. [facility]: Hospitalist Progress Note Hospital Day: LOS: [...] hours. No results for input(s): PHART, PO2ART, BGM4BCN, N1NPKDTM, BEART in the last 168 hours. Recent [...] [place] | | | | | | [address] | | | | | | | | +--------+---------+ + + + + + +--------+ + + | Name | Type | Priori | Associated Diagnoses | Date/Time | | | | ty | | | + + +--------+ + + | IR Angiogram Lower | Imaging | AJNIE | | 04/04/2019 10:42 AM | | [...] left | Ordered: 04/09/2019 | | to [facility] Vascular | Referral | e | [...] | | | | | performed at [facility] | | | | | | [address];[place], [place] | | | | | | [address] | | | | + + + + + + + + | Specimen | + + | Blood | + + + + + + + | Performing | Address | City/State/Zipcode | Phone Number | | Organization | | | | + + + + + | [facility] | [address] | [place] [address] | [phone] | + + + + + Phosphorus (04/10/2019 5:19 AM PST) + + + + + + | Component | Value | Ref Range | Performed | Pathologist | | | | | At | Signature | + + + + + + | Phosphorus | 3.6Comment: Testing | 2.3 - 4.8 mg/dL | [facility] | | | | performed at [facility], [address] | | LABORATORY | | | | [address], | | | | | | [place] [address] | | | | + + + + + + + + | Specimen | + + | Blood | + + + + + + + | Performing | Address | City/State/Zipcode | Phone Number | | Organization | | | | + + + + + | [facility] | [address] | [place] [address] | [phone] | + + + + + Comprehensive [...] | | | | | performed at [facility], [address] | | | | | | [facility], | | | | | | [place] [address] | | | | + + + + + + + + | Specimen | + + | Blood | + + + + + + + | Performing | Address | City/State/Zipcode | Phone Number | | Organization | | | | + + + + + | [facility] | [address] | [place] [address] | [phone] | + + + + + CBC [...] | | | Absolute | performed at [facility], [address] | [address] | LABORATORY | | | | [address], | | | | | | [place] [address] | | | | + + + + + + + + | Specimen | + + | Blood | + + + + + + + | Performing | Address | City/State/Zipcode | Phone Number | | Organization | | | | + + + + + | [facility] | [address] | [place] [address] | [phone] | + + + + + Red [...] | [facility] | | | COMMENT | [facility];[address] | | LABORATORY | | | | [address];[place] [address] | | | | + + + + + + + + | Specimen | + + | | + + + + + + + | Performing | Address | City/State/Zipcode | Phone Number | | Organization | | | | + + + + + | [facility] | [address] | [place] [address] | [phone] | + + + + + Type [...] + + + | BB BAND | [id number] | | [facility] | | | | | | LABORATORY | | + + + + + + | BB BAND | Testing performed at | | [facility] | | | | [facility];[address] | LABORATORY | | | | [address];[place] [address] | | | | + + + + + + | UNIT # | [id number] | | [facility] | | | | [...] + + + | UNIT # | [id number] | | [facility] | | | | [...] | + + + + + | [facility] | [address] | [place] [address] | [phone] | + + + + + Rosalind [...] | | | | | performed at [facility] | | | | | | [address] [facility];[place], [place] | | | | | | [address] | | | | + + + + + + + + | Specimen | + + | Blood | + + + + + + + | Performing | Address | City/State/Zipcode | Phone Number | | Organization | | | | + + + + + | [facility] | [address] | [place] [address] | [phone] | + + + + + Phosphorus (04/09/2019 4:18 AM PST) + + + + + + | Component | Value | Ref Range | Performed | Pathologist | | | | | At | Signature | + + + + + + | Phosphorus | 4.0Comment: Testing | 2.3 - 4.8 mg/dL | [facility] | | | | performed at [facility];[address] | | LABORATORY | | | | [address];[place] | | | | | | [address] | | | | + + + + + + + + | Specimen | + + | Blood | + + + + + + + | Performing | Address | City/State/Zipcode | Phone Number | | Organization | | | | + + + + + | [facility] | [address] | [place] [address] | [phone] | + + + + + Comprehensive [...] | | | | | | MDRD IDRI traceable | | | | | | equation.Testing | | | | | | performed at [facility] | | | | | | [facility];[place], [place] | | | | | | [address] | | | | + + + + + + + + | Specimen | + + | Blood | + + + + + + + | Performing | Address | City/State/Zipcode | Phone Number | | Organization | | | | + + + + + | [facility] | [address] | [place] [address] | [phone] | + + + + + CBC [...] 0.02Comment: Testing | 0.00 - 0.10 | [facility] | | | Absolute | performed at [facility];[address] | [address] | LABORATORY | | | | [address];[place], [place] | | | | | | [address] | | | | + + + + + + + + | Specimen | + + | Blood | + + + + + + + | Performing | Address | City/State/Zipcode | Phone Number | | Organization | | | | + + + + + | [facility] | [address] | [place] [address] | [phone] | + + + + + PTT (04/09/2019 4:18 AM PST) + + + + + + | Component | Value | Ref Range | Performed | Pathologist | | | | | At | Signature | + + + + + + | PTT | 33 (H)Comment: Testing | 23 - 32 seconds | [facility] | | | | performed at [facility];[address] | | LABORATORY | | | | [address];[place], [place] | | | | | | [address] | | | | + + + + + + + + | Specimen | + + | Blood | + + + + + + + | Performing | Address | City/State/Zipcode | Phone Number | | Organization | | | | + + + + + | [facility] | [address] | [place] [address] | [phone] | + + + + + Protime INR (04/08/2019 4:21 AM PST) + + + + + + | Component | Value | Ref Range | Performed | Pathologist | | | | | At | Signature | + + + + + + | INR | 1.1Comment: REFERENCE | | [facility] | | | | RANGE:0.9 [...] | | | | | performed at [facility];[address] | | | | | | [address];[place], [place] | | | | | | [address] | | | | + + + + + + + + | Specimen | + + | Blood | + + + + + + + | Performing | Address | City/State/Zipcode | Phone Number | | Organization | | | | + + + + + | [facility] | [address] | [place] [address] | [phone] | + + + + + Phosphorus (04/08/2019 4:21 AM PST) + + + + + + | Component | Value | Ref Range | Performed | Pathologist | | | | | At | Signature | + + + + + + | Phosphorus | 3.5Comment: Testing | 2.3 - 4.8 mg/dL | [facility] | | | | performed at [facility] | | LABORATORY | | | | [address];[place], [place] | | | | | | [address] | | | | + + + + + + + + | Specimen | + + | Blood | + + + + + + + | Performing | Address | City/State/Zipcode | Phone Number | | Organization | | | | + + + + + | [facility] | [address] | [place] [address] | [phone] | + + + + + Comprehensive [...] | | | | | performed at [facility];[address] | | | | | | [address];[place], [place] | | | | | | [address] | | | | + + + + + + + + | Specimen | + + | Blood | + + + + + + + | Performing | Address | City/State/Zipcode | Phone Number | | Organization | | | | + + + + + | [facility] | [address] | [place] [address] | [phone] | + + + + + CBC [...] | | | Absolute | performed at [facility];[address] | [address] | LABORATORY | | | | [address];[place] | | | | | | [address] | | | | + + + + + + + + | Specimen | + + | Blood | + + + + + + + | Performing | Address | City/State/Zipcode | Phone Number | | Organization | | | | + + + + + | [facility] | [address] | [place] [address] | [phone] | + + + + + PTT (04/08/2019 4:21 AM PST) + + + + + + | Component | Value | Ref Range | Performed | Pathologist | | | | | At | Signature | + + + + + + | PTT | 49 (H)Comment: Testing | 23 - 32 seconds | [facility] | | | | performed at [facility];[address] | | LABORATORY | | | | [address];[place] | | | | | | [address] | | | | + + + + + + + + | Specimen | + + | Blood | + + + + + + + | Performing | Address | City/State/Zipcode | Phone Number | | Organization | | | | + + + + + | [facility] | [address] | [place] [address] | [phone] | + + + + + ECG [...] (500), | | | | | | film editor Dion Bueno | | | | [...] Testing | 2.3 - 4.8 mg/dL | [facility] | | | | performed at [facility], [address] | | LABORATORY | | | | [address], | | | | | | [place] [address] | | | | + + + + + + + + | Specimen | + + | Blood | + + + + + + + | Performing | Address | City/State/Zipcode | Phone Number | | Organization | | | | + + + + + | [facility] | [address] | [place] [address] | [phone] | + + + + + Comprehensive [...] W | | | | | | [facility], | | | | | | [place] [address] | | | | + + + + + + + + | Specimen | + + | Blood | + + + + + + + | Performing | Address | City/State/Zipcode | Phone Number | | Organization | | | | + + + + + | [facility] | [address] | [place] [address] | [phone] | + + + + + Magnesium (04/07/2019 7:02 AM PST) + + + + + + | Component | Value | Ref Range | Performed | Pathologist | | | | | At | Signature | + + + + + + | Magnesium | 2.3Comment: Testing | 1.7 - 2.4 mg/dL | [facility] | | | | performed at [facility], [address] | | LABORATORY | | | | [address], | | | | | | [place] [address] | | | | + + + + + + + + | Specimen | + + | Blood | + + + + + + + | Performing | Address | City/State/Zipcode | Phone Number | | Organization | | | | + + + + + | [facility] | [address] | [place] [address] | [phone] | + + + + + CBC [...] K/uL | LABORATORY | | | | [facility], | | | | | | [place] [address] | | | | + + + + + + + + | Specimen | + + | Blood | + + + + + + + | Performing | Address | City/State/Zipcode | Phone Number | | Organization | | | | + + + + + | [facility] | [address] | [place] [address] | [phone] | + + + + + PTT (04/07/2019 5:34 AM PST) + + + + + + | Component | Value | Ref Range | Performed | Pathologist | | | | | At | Signature | + + + + + + | PTT | 48 (H)Comment: Testing | 23 - 32 seconds | [facility] | | | | performed at [facility];[address] | | LABORATORY | | | | [address];[place], [place] | | | | | | [address] | | | | + + + + + + + + | Specimen | + + | Blood | + + + + + + + | Performing | Address | City/State/Zipcode | Phone Number | | Organization | | | | + + + + + | [facility] | [address] | [place] [address] | [phone] | + + + + + Protime INR (04/07/2019 5:34 AM PST) + + + + + + | Component | Value | Ref Range | Performed | Pathologist | | | | | At | Signature | + + + + + + | INR | 1.1Comment: REFERENCE | | [facility] | | | | RANGE:0.9 [...] | | | | | performed at [facility];[address] | | | | | [address];[place] | | | | | | [address] | | | | + + + + + + + + | Specimen | + + | Blood | + + + + + + + | Performing | Address | City/State/Zipcode | Phone Number | | Organization | | | | + + + + + | [facility] | [address] | [place] [address] | [phone] | + + + + + PTT (04/06/2019 9:03 PM PST) + + + + + + | Component | Value | Ref Range | Performed | Pathologist | | | | | At | Signature | + + + + + + | PTT | 48 (H)Comment: Testing | 23 - 32 seconds | [facility] | | | | performed at [facility];[address] | | LABORATORY | | | | [address];[place] | | | | | | [address] | | | | + + + + + + + + | Specimen | + + | Blood | + + + + + + + | Performing | Address | City/State/Zipcode | Phone Number | | Organization | | | | + + + + + | [facility] | [address] | [place] [address] | [phone] | + + + + + PTT (04/06/2019 3:15 PM PST) + + + + + + | Component | Value | Ref Range | Performed | Pathologist | | | | | At | Signature | + + + + + + | PTT | 48 (H)Comment: Testing | 23 - 32 seconds | [facility] | | | | performed at [facility];[address] | | LABORATORY | | | | [address];[place], [place] | | | | | | [address] | | | | + + + + + + + + | Specimen | + + | Blood | + + + + + + + | Performing | Address | City/State/Zipcode | Phone Number | | Organization | | | | + + + + + | [facility] | [address] | [place] [address] | [phone] | + + + + + PTT (04/06/2019 10:25 AM PST) + + + + + + | Component | Value | Ref Range | Performed | Pathologist | | | | | At | Signature | + + + + + + | PTT | 40 (H)Comment: Testing | 23 - 32 seconds | [facility] | | | | performed at [facility];[address] | | LABORATORY | | | | [address];[place] | | | | | | [address] | | | | + + + + + + + + | Specimen | + + | Blood | + + + + + + + | Performing | Address | City/State/Zipcode | Phone Number | | Organization | | | | + + + + + | [facility] | [address] | [place] [address] | [phone] | + + + + + ECG [...] | | | | | ONLY, -COMPUTER (237), | | | | | | film editor Destini Moy | | | | [...] [facility] | | | | performed at [facility];[address] | | LABORATORY | | | | [address];[place] | | | | | | [address] | | | | + + + + + + + + | Specimen | + + | | + + + + + + + | Performing | Address | City/State/Zipcode | Phone Number | | Organization | | | | + + + + + | [facility] | [address] | [place] [address] | [phone] | + + + + + Protime JOE (04/06/2019 4:13 AM PST) + + + + + + | Component | Value | Ref Range | Performed | Pathologist | | | | | At | Signature | + + + + + + | INR | 1.0Comment: REFERENCE | | [facility] | | | | RANGE:0.9 [...] | | | | | performed at [facility];[address] | | | | | | [address];[place] | | | | | | [address] | | | | + + + + + + + + | Specimen | + + | Blood | + + + + + + + | Performing | Address | City/State/Zipcode | Phone Number | | Organization | | | | + + + + + | [facility] | [address] [facility] | [place] [address] | [phone] | + + + + + Phosphorus (04/06/2019 4:13 AM PST) + + + + + + | Component | Value | Ref Range | Performed | Pathologist | | | | | At | Signature | + + + + + + | Phosphorus | 2.7Comment: Testing | 2.3 - 4.8 mg/dL | [facility] | | | | performed at [facility];[address] | | LABORATORY | | | | [address];[place], [place] | | | | | | [address] | | | | + + + + + + + + | Specimen | + + | Blood | + + + + + + + | Performing | Address | City/State/Zipcode | Phone Number | | Organization | | | | + + + + + | [facility] | [address] | [place] [address] | [phone] | + + + + + Comprehensive [...] | >60Comment: GFR <60: | >60 | [facility] | | | GFR | [...] | | | | | | MDRD IDRI traceable | | | | | | equation.Testing | | | | | | performed at [facility] | | | | | | [facility];[place], [place] | | | | | | [address] | | | | + + + + + + + + | Specimen | + + | Blood | + + + + + + + | Performing | Address | City/State/Zipcode | Phone Number | | Organization | | | | + + + + + | [facility] | [address] | [place] [address] | [phone] | + + + + + CBC [...] | | | Absolute | performed at [facility];[address] | [address] | LABORATORY | | | | [address];[place], [place] | | | | | | [address] | | | | + + + + + + + + | Specimen | + + | Blood | + + + + + + + | Performing | Address | City/State/Zipcode | Phone Number | | Organization | | | | + + + + + | [facility] | [address] [facility] | [place] [address] | [phone] | + + + + + Magnesium (04/06/2019 4:13 AM PST) + + + + + + | Component | Value | Ref Range | Performed | Pathologist | | | | | At | Signature | + + + + + + | Magnesium | 1.9Comment: Testing | 1.7 - 2.4 mg/dL | [facility] | | | | performed at [facility];[address] | | LABORATORY | | | | [address];[place], [place] | | | | | | [address] | | | | + + + + + + + + | Specimen | + + | Blood | + + + + + + + | Performing | Address | City/State/Zipcode | Phone Number | | Organization | | | | + + + + + | [facility] | [address] | [place] [address] | [phone] | + + + + + PTT (04/05/2019 10:01 PM PST) + + + + + + | Component | Value | Ref Range | Performed | Pathologist | | | | | At | Signature | + + + + + + | PTT | 41 (H)Comment: Testing | 23 - 32 seconds | [facility] | | | | performed at [facility];[address] | | LABORATORY | | | | [address];[place] | | | | | | [address] | | | | + + + + + + + + | Specimen | + + | Blood | + + + + + + + | Performing | Address | City/State/Zipcode | Phone Number | | Organization | | | | + + + + + | [facility] | [address] | [place] [address] | [phone] | + + + + + PTT (04/05/2019 3:52 PM PST) + + + + + + | Component | Value | Ref Range | Performed | Pathologist | | | | | At | Signature | + + + + + + | PTT | 55 (H)Comment: Testing | 23 - 32 seconds | [facility] | | | | performed at [facility];[address] | | LABORATORY | | | | [address];[place] | | | | | | [address] | | | | + + + + + + + + | Specimen | + + | Blood | + + + + + + + | Performing | Address | City/State/Zipcode | Phone Number | | Organization | | | | + + + + + | [facility] | [address] | [place] [address] | [phone] | + + + + + CBC [...] LABORATORY | | | | performed at [facility], [address] | | | | | [address], | | | | | | [place] [address] | | | | + + + + + + + + | Specimen | + + | Blood | + + + + + + + | Performing | Address | City/State/Zipcode | Phone Number | | Organization | | | | + + + + + | [facility] | [address] | [place] [address] | [phone] | + + + + + PTT (04/05/2019 8:28 AM PST) + + + + + + | Component | Value | Ref Range | Performed | Pathologist | | | | | At | Signature | + + + + + + | PTT | 66 (H)Comment: Testing | 23 - 32 seconds | [facility] | | | | performed at [facility];[address] | | LABORATORY | | | | [address];[place] | | | | | | [address] | | | | + + + + + + + + | Specimen | + + | Blood | + + + + + + + | Performing | Address | City/State/Zipcode | Phone Number | | Organization | | | | + + + + + | [facility] | [address] | [place] [address] | [phone] | + + + + + CBC [...] | | | | [facility], [address] | | | | | | [place], [place] | | | | | | [address] | | | | + + + + + + + + | Specimen | + + | Blood | + + + + + + + | Performing | Address | City/State/Zipcode | Phone Number | | Organization | | | | + + + + + | [facility] | [address] | [place] [address] | [phone] | + + + + + Phosphorus (04/05/2019 2:18 AM PST) + + + + + + | Component | Value | Ref Range | Performed | Pathologist | | | | | At | Signature | + + + + + + | Phosphorus | 3.1Comment: Testing | 2.3 - 4.8 mg/dL | [facility] | | | | performed at [facility];[address] | | LABORATORY | | | | [address];[place] | | | | | | [address] | | | | + + + + + + + + | Specimen | + + | Blood | + + + + + + + | Performing | Address | City/State/Zipcode | Phone Number | | Organization | | | | + + + + + | [facility] | [address] | [place] [address] | [phone] | + + + + + Comprehensive [...] 12 | 10 - 65 U/L | [facility] | | | | | | LABORATORY | | + + + + + + | Estimated | >60Comment: GFR <60: | >60 | [facility] | | | GFR | [...] | | | | | | MDRD IDRI traceable | | | | | | equation.Testing | | | | | | performed at [facility] | | | | | | [facility];[place], [place] | | | | | | [address] | | | | + + + + + + + + | Specimen | + + | Blood | + + + + + + + | Performing | Address | City/State/Zipcode | Phone Number | | Organization | | | | + + + + + | [facility] | [address] | [place] [address] | [phone] | + + + + + CBC [...] | | | Absolute | performed at [facility];[address] | K/uL | LABORATORY | | | | [address];[place], [place] | | | | | | [address] | | | | + + + + + + + + | Specimen | + + | Blood | + + + + + + + | Performing | Address | City/State/Zipcode | Phone Number | | Organization | | | | + + + + + | [facility] | [address] | [place] [address] | [phone] | + + + + + PTT (04/05/2019 2:18 AM PST) + + + + + + | Component | Value | Ref Range | Performed | Pathologist | | | | | At | Signature | + + + + + + | PTT | 45 (H)Comment: Testing | 23 - 32 seconds | [facility] | | | | performed at [facility];[address] | | LABORATORY | | | | [address];[place] | | | | | | [address] | | | | + + + + + + + + | Specimen | + + | Blood | + + + + + + + | Performing | Address | City/State/Zipcode | Phone Number | | Organization | | | | + + + + + | [facility] | [address] | [place] [address] | [phone] | + + + + + Vitamin B-12 04/05/2019 2:18 AM PST) + + + + + + | Component | Value | Ref Range | Performed | Pathologist | | | | | At | Signature | + + + + + + | VITAMIN | 747Comment: Testing | 254 - 1,320 | [facility] | | | B-12 | performed at [facility], [address] | pg/mL | LABORATORY | | | | [address], | | | | | | [place] [address] | | | | + + + + + + + + | Specimen | + + | Blood | + + + + + + + | Performing | Address | City/State/Zipcode | Phone Number | | Organization | | | | + + + + + | [facility] | [address] | [place] [address] | [phone] | + + + + + Retic [...] | | | Reticulocyt | performed at [facility] | | LABORATORY | | | e Count | [address] [facility];[place], [place] | | | | | | [address] | | | | + + + + + + + + | Specimen | + + | Blood | + + + + + + + | Performing | Address | City/State/Zipcode | Phone Number | | Organization | | | | + + + + + | [facility] | [address] | [place] [address] | [phone] | + + + + + Iron [...] | | | | | [place] [address] | | | | + + + + + + + + | Specimen | + + | Blood | + + + + + + + | Performing | Address | City/State/Zipcode | Phone Number | | Organization | | | | + + + + + | [facility] | [address] | [place] [address] | [phone] | + + + + + Folate (04/05/2019 2:18 AM PST) + + + + + + | Component | Value | Ref Range | Performed | Pathologist | | | | | At | Signature | + + + + + + | FOLATE | 16.6Comment: Testing | >5.4 ng/mL | [facility] | | | | performed at [facility], [address] | | LABORATORY | | | | [address], | | | | | | [place] [address] | | | | + + + + + + + + | Specimen | + + | Blood | + + + + + + + | Performing | Address | City/State/Zipcode | Phone Number | | Organization | | | | + + + + + | [facility] | [address] | [place] [address] | [phone] | + + + + + Ferritin [...] | | | | | [place] [address] | | | | + + + + + + + + | Specimen | + + | Blood | + + + + + + + | Performing | Address | City/State/Zipcode | Phone Number | | Organization | | | | + + + + + | [facility] | [address] | [place] [address] | [phone] | + + + + + Magnesium (04/05/2019 2:18 AM PST) + + + + + + | Component | Value | Ref Range | Performed | Pathologist | | | | | At | Signature | + + + + + + | Magnesium | 1.7Comment: Testing | 1.7 - 2.4 mg/dL | [facility] | | | | performed at [facility];[address] | | LABORATORY | | | | [address];[place], [place] | | | | | | [address] | | | | + + + + + + + + | Specimen | + + | Blood | + + + + + + + | Performing | Address | City/State/Zipcode | Phone Number | | Organization | | | | + + + + + | [facility] | [address] | [place] [address] | [phone] | + + + + + CBC [...] LABORATORY | | | | performed at [facility] | | | | | | [address];[place] | | | | | | [address] | | | | + + + + + + + + | Specimen | + + | Blood | + + + + + + + | Performing | Address | City/State/Zipcode | Phone Number | | Organization | | | | + + + + + | [facility] | [address] | [place] [address] | [phone] | + + + + + PTT (04/04/2019 6:42 PM PST) + + + + + + | Component | Value | Ref Range | Performed | Pathologist | | | | | At | Signature | + + + + + + | PTT | 33 (H)Comment: Testing | 23 - 32 seconds | [facility] | | | | performed at [facility];[address] | | LABORATORY | | | | [address];[place] | | | | | | [address] | | | | + + + + + + + + | Specimen | + + | Blood | + + + + + + + | Performing | Address | City/State/Zipcode | Phone Number | | Organization | | | | + + + + + | [facility] | [address] | [place] [address] | [phone] | + + + + + CBC [...] LABORATORY | | | | performed at [facility] | | | | | | [address];[place], [place] | | | | | | [address] | | | | + + + + + + + + | Specimen | + + | Blood | + + + + + + + | Performing | Address | City/State/Zipcode | Phone Number | | Organization | | | | + + + + + | [facility] | [address] | [place] [address] | [phone] | + + + + + CBC [...] LABORATORY | | | | performed at [facility];[address] | | | | | | [address];[place] | | | | | | [address] | | | | + + + + + + + + | Specimen | + + | Blood | + + + + + + + | Performing | Address | City/State/Zipcode | Phone Number | | Organization | | | | + + + + + | [facility] | [address] | [place] [address] | [phone] | + + + + + PTT (04/04/2019 12:36 PM PST) + + + + + + | Component | Value | Ref Range | Performed | Pathologist | | | | | At | Signature | + + + + + + | PTT | 54 (H)Comment: Testing | 23 - 32 seconds | [facility] | | | | performed at [facility];[address] | | LABORATORY | | | | [address];[place], [place] | | | | | | [address] | | | | + + + + + + + + | Specimen | + + | Blood | + + + + + + + | Performing | Address | City/State/Zipcode | Phone Number | | Organization | | | | + + + + + | [facility] | [address] | [place] [address] | [phone] | + + + + + Magnesium (04/04/2019 11:52 AM PST) + + + + + + | Component | Value | Ref Range | Performed | Pathologist | | | | | At | Signature | + + + + + + | Magnesium | 1.9Comment: Testing | 1.7 - 2.4 mg/dL | [facility] | | | | performed at [facility];[address] | | LABORATORY | | | | [address];[place] | | | | | | [address] | | | | + + + + + + + + | Specimen | + + | | + + + + + + + | Performing | Address | City/State/Zipcode | Phone Number | | Organization | | | | + + + + + | [facility] | [address] | [place] [address] | [phone] | + + + + + Comprehensive [...] 12 | 10 - 65 U/L | [facility] | | | | | | LABORATORY | | + + + + + + | Estimated | >60Comment: GFR <60: | >60 | [facility] | | | GFR | [...] | | | | | performed at [facility];[address] | | | | | | [facility];[place], [place] | | | | | | [address] | | | | + + + + + + + + | Specimen | + + | | + + + + + + + | Performing | Address | City/State/Zipcode | Phone Number | | Organization | | | | + + + + + | [facility] | [address] | [place] [address] | [phone] | + + + + + CBC [...] | 11.1Comment: NO NORMAL | fl | [facility] | | | | RANGE ESTABLISHEDTesting | | LABORATORY | | | | performed at [facility];[address] | | | | | | [address];[place] | | | | | | [address] | | | | + + + + + + + + | Specimen | + + | Blood | + + + + + + + | Performing | Address | City/State/Zipcode | Phone Number | | Organization | | | | + + + + + | [facility] | [address] | [place] [address] | [phone] | + + + + + Red [...] BANK | Testing performed at | | [facility] | | | COMMENT | [facility];[address] | | LABORATORY | | | | [address];[place] [address] | | | | + + + + + + + + | Specimen | + + | | + + + + + + + | Performing | Address | City/State/Zipcode | Phone Number | | Organization | | | | + + + + + | [facility] | [address] | [place] [address] | [phone] | + + + + + CBC [...] LABORATORY | | | | performed at [facility];[address] | | | | | | [address];[place], [place] | | | | | | [address] | | | | + + + + + + + + | Specimen | + + | Blood | + + + + + + + | Performing | Address | City/State/Zipcode | Phone Number | | Organization | | | | + + + + + | [facility] | [address] | [place] [address] | [phone] | + + + + + Protime INR (04/04/2019 6:18 AM PST) + + + + + + | Component | Value | Ref Range | Performed | Pathologist | | | | | At | Signature | + + + + + + | INR | 1.7Comment: REFERENCE | | [facility] | | | | RANGE:0.9 [...] | | | | | performed at [facility];[address] | | | | | | [address];[place] | | | | | | [address] | | | | + + + + + + + + | Specimen | + + | Blood | + + + + + + + | Performing | Address | City/State/Zipcode | Phone Number | | Organization | | | | + + + + + | [facility] | [address] | [place] [address] | [phone] | + + + + + Iron, [...] | | | | | [place] [address] | | | | + + + + + + + + | Specimen | + + | Blood | + + + + + + + | Performing | Address | City/State/Zipcode | Phone Number | | Organization | | | | + + + + + | [facility] | [address] | [place] [address] | [phone] | + + + + + CBC [...] LABORATORY | | | | performed at [facility];[address] | | | | | | [address];[place] | | | | | | [address] | | | | + + + + + + + + | Specimen | + + | Blood | + + + + + + + | Performing | Address | City/State/Zipcode | Phone Number | | Organization | | | | + + + + + | [facility] | [address] | [place] [address] | [phone] | + + + + + Troponin I (04/03/2019 7:45 PM PST) + + + + + + | Component | Value | Ref Range | Performed | Pathologist | | | | | At | Signature | + + + + + + | Troponin I | 1.186 ()Comment: | 0.00 - 0.04 | [facility] | | | | 0.04 ng/mL or [...] | | | | | performed at [facility] | | | | | | [facility];[place], [place] | | | | | | [address] | | | | + + + + + + + + | Specimen | + + | | + + + + + + + | Performing | Address | City/State/Zipcode | Phone Number | | Organization | | | | + + + + + | [facility] | [address] | [place] [address] | [phone] | + + + + + CBC [...] LABORATORY | | | | performed at [facility];[address] | | | | | | [address];[place], [place] | | | | | | [address] | | | | + + + + + + + + | Specimen | + + | Blood | + + + + + + + | Performing | Address | City/State/Zipcode | Phone Number | | Organization | | | | + + + + + | [facility] | [address] | [place] [address] | [phone] | + + + + + ECG [...] (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), | | | | | | 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 [address] | | | | [...] | | | | | [address];[place] [address] | | | | + + + + + + + + | Specimen | + + | | + + + + + + + | Performing | Address | City/State/Zipcode | Phone Number | | Organization | | | | + + + + + | [facility] | [address] | [place] [address] | [phone] | + + + + + PRODUCT: [...] + + + | UNIT # | [id number] | | [facility] | | | | [...] + + + | UNIT # | [id number] | | [facility] | | | | [...] | | | Status | performed at [facility];[address] | | LABORATORY | | | | [address];[place] | | | | | | [address] | | | | + + + + + + + + | Specimen | + + | | + + + + + + + | Performing | Address | City/State/Zipcode | Phone Number | | Organization | | | | + + + + + | [facility] | [address] | [place] [address] | [phone] | + + + + + CBC [...] | | | Absolute | performed at [facility];[address] | K/uL | LABORATORY | | | | [address];[place], [place] | | | | | | [address] | | | | + + + + + + + + | Specimen | + + | Blood | + + + + + + + | Performing | Address | City/State/Zipcode | Phone Number | | Organization | | | | + + + + + | [facility] | [address] | [place] [address] | [phone] | + + + + + Type [...] + + + | BB BAND | [id number] | | [facility] | | | | | | LABORATORY | | + + + + + + | UNIT # | [id number] | | [facility] | | | | [...] + + + | UNIT # | [id number] | | [facility] | | | | [...] + + + | UNIT # | [id number] | | [facility] | | | | [...] | | | RESULT | performed at [facility] | | LABORATORY | | | | [address];[place], [place] | | | | | | [address] | | | | + + + + + + | UNIT # | [id number] | | [facility] | | | | [...] | + + + + + | [facility] | [address] | [place] [address] | [phone] | + + + + + POC Glucose (04/03/2019 6:57 PM PST) + + + + + + | Component | Value | Ref Range | Performed | Pathologist | | | | | At | Signature | + + + + + + | Glucose, | 147 (H)Comment: Testing | 65 - 99 mg/dL | [facility] | | | POC | performed at [facility];[address] | | LABORATORY | | | | [address];[place] | | | | | | [address] | | | | + + + + + + + + | Specimen | + + | | + + + + + + + | Performing | Address | City/State/Zipcode | Phone Number | | Organization | | | | + + + + + | [facility] | [address] | [place] [address] | [phone] | + + + + + CT [...] [facility] | | | | performed at [facility], [address] | | LABORATORY | | | | [address], | | | | | | [place] [address] | | | | + + + + + + + + | Specimen | + + | Blood | + + + + + + + | Performing | Address | City/State/Zipcode | Phone Number | | Organization | | | | + + + + + | [facility] | [address] | [place] [address] | [phone] | + + + + + Ferritin (04/03/2019 10:25 AM PST) + + + + + + | Component | Value | Ref Range | Performed | Pathologist | | | | | At | Signature | + + + + + + | Ferritin | 144Comment: Testing | 6 - 170 ng/mL | [facility] | | | | performed at [facility], [address] | | LABORATORY | | | | [address], | | | | | | [place] [address] | | | | + + + + + + + + | Specimen | + + | Blood | + + + + + + + | Performing | Address | City/State/Zipcode | Phone Number | | Organization | | | | + + + + + | [facility] | [address] | [place] [address] | [phone] | + + + + + Protime [...] | | | | | performed at [facility] | | | | | | [address] [facility];[place], [place] | | | | | | [address] | | | | + + + + + + + + | Specimen | + + | | + + + + + + + | Performing | Address | City/State/Zipcode | Phone Number | | Organization | | | | + + + + + | [facility] | [address] | [place] [address] | [phone] | + + + + + Basic [...] | 8.9 | 8.5 - 10.5 | [facility] | | | | | mg/dL | LABORATORY | | + + + + + + | Estimated | >60Comment: GFR <60: | >60 | [facility] | | | GFR | [...] | | | | | performed at [facility] | | | | | | [facility] [facility];[place], [place] | | | | | | [address] | | | | + + + + + + + + | Specimen | + + | Blood | + + + + + + + | Performing | Address | City/State/Zipcode | Phone Number | | Organization | | | | + + + + + | [facility] | [address] | [place] [address] | [phone] | + + + + + CBC with Differential (04/03/2019 10:25 AM PST) + + + + + + | Component | Value | Ref Range | Performed | Pathologist | | | | | At | Signature | + + + + + + | WBC | 12.36 (H) | 3.80 - 11.00 | [facility] | | | | | K/uL | [...] 0.03Comment: Testing | 0.00 - 0.10 | [facility] | | | Absolute | performed at [facility];[address] | K/uL | LABORATORY | | | | [address];[place], [place] | | | | | | [address] | | | | + + + + + + + + | Specimen | + + | Blood | + + + + + + + | Performing | Address | City/State/Zipcode | Phone Number | | Organization | | | | + + + + + | [facility] | [address] | [place] [address] | [phone] | + + + + + documented [...]
--- OUTSIDE RECORDS SUMMARY | ~2019-07-17 | XMS | Encounter Summary ---
Demographics + + + | Address | [address] | | | [place] [address] | + + + | Home Phone [...] [place] | | | | | [address] | | + + + + + | Beatrice Paulson | ECON | [address] | | | | | [place] | | | | | [address] | | + + + + + Care Team Providers + +------+ + | Care Knit Tubing Dyer Name | Role | Phone | + +------+ + PCP | Unavailable | + +------+ + Encounter Details +--------+ + + + + | Date | Type | Department | Care Team | Description | +--------+ + + + + | 01/10/ | Hospital | [facility] | Olayinka Rothman | | | 2009 | Encounter | [facility] | MD Perla [address] | | | | | [address] [place] | [address] [place], [place] | | | | | [place], [place] | [address] | | | | | [address] | | | | | | [phone] | | | +--------+ + + + [...] [place] | | | | | | [address] | | | | | | | | +--------+---------+ + + + documented as of this encounter Visit Diagnoses Not on filedocumented in this encounter"
--- OUTSIDE RECORDS SUMMARY | ~2019-07-17 | XMS | Encounter Summary ---
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 | [address] | [place] | [phone] | | [facility] | | [address] | | | - IMAGING | | | | + + + + + documented in this encounter Visit Diagnoses + + | Diagnosis | + + | Osteoarthritis of lumbar spine, unspecified spinal osteoarthritis complication status | | - Primary | + + documented in this encounter"
--- OUTSIDE RECORDS SUMMARY | ~2019-07-17 | XMS | Encounter Summary ---
Demographics + + + | Address | [address] | | | [place] [address] | + + + | Home Phone | | + + + | Preferred Language | Unknown | + + + | Marital Status | | + + + | Faith Affiliation | Unknown | + + + | Race | Unknown | + + + | Ethnic Group | Unknown | + + + Author + + + | Author | [facility] | | | and [place] | + + + | Organization | [facility] | | | and [place] | + + + | Address | Unknown | + + + | Phone | Unavailable | + + + Support + + + + + | Name | Relationship | Address | Phone | + + + + + | Veronica Anderson | ECON | [place] | | | | | [address] | | + + + + + | Beatrice Paulson | ECON | [address] | | | | | [place] | | | | | [address] | | + + + + + Care Team Providers + +------+ + | Care Health Care Attorney Name | Role | Phone | + +------+ + | Venkata Pettit MD | PCP | | + +------+ + Reason for Visit + + + | Reason | Comments | + + + | Shoulder Pain | Left arm pain with tingling that starts at shoulder | + + + Evaluate & Treat (Routine) +--------+--------+ + + + + | Status | Reason | Specialty | Diagnoses / | Referred By | Referred To | | | | | Procedures | Contact | Contact | +--------+--------+ + + + + | Closed | | Physical | Diagnoses | Suman, | Stephan, | | | | Medicine and | Cervical | Michael Joshua, | Olayinka Duncan MD | | | | Rehabilitatio | spondylosis | [address] | [address] | | | | n | Cervical | [address] | [address] | | | | | radiculopath | Javed, | [place] | | | | | y | [place] | [address] Phone: | | | | | | [address] | [phone] | | | | | | Phone: | Fax: | | | | | | [phone] | [phone] | | | | | | Fax: | | | | | | | [phone] | | +--------+--------+ + + + + Encounter Details +--------+---------+ + + + | Date | Type | Department | Care Team | Description | +--------+---------+ + + + | 01/15/ | Office | [facility] | Olayinka Rothman | Cervical | | 2016 | Visit | PHYSIATRY [address] | [address], [address] | radiculopathy | | | | [address] | [address] [place] | (Primary Dx); S/P | | | | [place] | [address] | cervical spinal | | | | [address] | | fusion; Foraminal | | | | [phone] | | stenosis of cervical | | | | | | region | +--------+---------+ + + + Social [...] + + + | Blood Pressure | 161/77 | 01/16/2016 9:40 AM | | | | | PST | | + + + + + | Pulse | 60 | 01/16/2016 9:40 AM | | | | | PST [...] | Weight | 126.5 kg (278 lb | 01/16/2016 9:40 AM | | | | 14.4 oz) | PST | | + + + + + | Height | 172.7 cm (5' 8") | 01/16/2016 9:40 AM | | | | | PST | | + + + + + | Body Mass Index | 42.41 | 01/16/2016 9:40 AM | | | | | PST | | + + + + + documented in this encounter Patient Instructions Patient Instructions Ashley Jorge, Printing Pressman - 01/16/2016 10:03 AM PST1.Stefania Whitman about home cervical traction unit, too see if he would thinks it would be benefici al. 2. Cervical Injection at levels C7-T1 ILESI will be performed in the near future. 3. Medication such as Gabapentin and Cymbalta may need to be considered in the near future if the cervical injections do not help. Follow-up at the hospital thirty minutes before your scheduled procedure to allow for time to check in. You may eat and drink as usual on the day of the procedure. If you are scheduled for an epidural injection do not take any blood thinning medications f or at least 5-7 days prior to your procedure unless you have been instructed by another phys ician not to discontinue blood thinning medications. If you are having a procedure other than an epidural injection (i.e. facet injection, media l branch block, SI joint injection or other joint injection) it is not absolutely necessary to discontinue blood thinning medications but doing so will decrease the risk of bruising or bleeding. If you have had a prior stroke, DVT or PE or if you are taking blood thinning medication be cause you have atrial fibrillation, a prosthetic cardiac valve replacement or heart stenting do not stop taking your blood thinning medications unless you have permission from your car diologist or primary care provider. All other medications should be taken as usual on the day of the procedure. Common blood thinning medications include: Aspirin (a baby aspirin is o.k.) Ibuprofen (Advil or Motrin) Naproxen (Aleve) Nabumetone (Relafen) Clopidogrel (Plavix) Dipyridamole/ASA (Aggrenox) Warfarin (Coumadin) Dabigatran (Pradaxa) Rivaroxaban (Xarelto) There are many others. If you have questions about your medications and whether or not you should stop any medications please contact our office. If you are having an epidural injection or if you take any medication for relaxation/sedati on on the day of the procedure you must provide a certified driver examiner to take you home. For all procedur es it is recommended that someone else drive you home. documented in this encounter Progress Notes Olayinka Rothman MD - 01/16/2016 9:45 AM PST CHIEF COMPLAINT: Chief Complaint Patient presents with Shoulder Pain Left arm pain with tingling that starts at shoulder HISTORY OF PRESENT ILLNESS: The patient is a 75 y.o. female being seen today at the [facility] t of Dr. Michael Will for complaints of tingling and an annoying and uncomfortable burning or pins and needles sensation in the left shoulder/upper arm above the elbow. The patient hogan s prior history of cervical spine fusion for myelopathy. The patient also reports sensitivit y to touch throughout her body. The patient states that physical therapy has been helping c onsiderably with her neck pain but did not help with the arm symptoms except she was taught a chin tuck maneuver which she states does help. Her symptoms worsen with leaning with her chin jutted forward and her neck extended. She al so states sitting up such as when driving causes pain in her neck. Her symptoms improve when she tucks her chin in towards her body and pulls her head back. Since the symptoms began she reports the symptoms have been persistent. She describes the p ain as a burning, pins and needles, tingling feeling. She reports no significant ache or sev ere pain at this time but reports that the sensation is uncomfortable and annoying. The patient also describes arm symptoms that occur on left side. The arm symptoms account for 100% of her symptoms. The arm symptoms are constant and the symptoms travels from the l eft shoulder to mid upper arm. The patient does not describe numbness. She does not report weakness. She has tried PT and NSAIDS. She reports that manual traction was performed in physical t herapy but she never tried . Patient's medications, allergies, past medical, surgical, social and family histories were reviewed and updated as appropriate. PAST MEDICAL HISTORY: Past Medical History Diagnosis Date Sacroiliitis (HCC) BACK PAIN, LUMBAR Spinal stenosis Trochanteric bursitis Degenerative disc disease Obesity Hypertension Hypercholesterolemia Hx of spinal fusion Myofascial pain syndrome Paresthesia Carpal tunnel syndrome Facet arthritis of lumbar region (HCC) 05/02/2015 Chronic bilateral low back pain without sciatica 07/20/2015 PAST SURGICAL HISTORY: Past Surgical History Procedure Laterality Date Gallbladder surgery 12/18/2001 Lumbar spinal stenosis 05/24/2009 Neck surgery 10/10/[address] Ribera Cataract surgery 10/29/2011(left eye, Right eye 01/07/12 Lumbar fusion 01/13/13 L1-L5 Lumbar Fusion Laser eye surgery Bilateral 04/06/13 Secondary Cataracts Lasered Total knee arthroplasty Left 06/28/[address] 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 Shah [place] CURRENT MEDICATIONS: Current Outpatient Prescriptions Medication Sig [...] Maternal Grandmother Arthritis Mother REVIEW OF SYSTEMS: The patient reported no recent illnesses, no falls, no balance or coordination difficulty. She also denies stomach pain, bowel and bladder dysfunction, headaches, dizziness or any ot her major changes in her health recently. PHYSICAL EXAMINATION: Blood pressure 161/77, pulse 60, height 1.727 m (5' 8"), weight 126.508 kg (278 lb 14.4 oz) . Body mass index is 42.42 kg/(m^2). GENERAL: The patient is well developed [...] has no apparent deficits with short or usp memory. She has appropriate fund of knowledge Cranial nerves 2-12 appear grossly intact. Sensory exam does not show diminished sensation to light touch in the upper and lower extre mities. REFLEX: RIGHT LEFT BICEPS 2+ 2+ BRACHIORADIALIS 2+ 2+ TRICEPS 2+ 2+ PATELLAR 2+ 2+ ACHILLES 2+ 2+ CUMMINS'S Slightly positive Slightly positive Clonus Negative Negative MUSCULOSKELETAL There is no major palpable deformity of the spine. Range of motion testing of the cervical spine was unremarkable. Spurling sign was negative. Shoulder examination shows well preserved range of motion with external rotation, internal r otation and abduction. Impingement testing was negative. There was no tenderness over the bicipital groove or over the AC joint. Speed's test was negative. Empty can test was negat elizabeth. Strength testing, including strength testing of the infraspinatus, supraspinatus and subscapularis, in bilateral upper extremities showed 5/5 strength with no focal weakness. RADIOGRAPHIC REVIEW: The patient's imaging was reviewed in detail with the patient today during the visit. The images show the prior cervical fusion at C5-C6. There is also DDD at other levels resulting in various degrees of central canal and foraminal stenosis range up to moderately severe, p rimarily on the left, including at the prior operative level, C5-C6. ASSESSMENT: Encounter Diagnoses Name Primary? Cervical radiculopathy Yes S/P cervical spinal fusion Foraminal stenosis of cervical region PLAN: 1. The patient has had significant PT without much benefit. She isn't really excited abou t medications and asked if injections may help. Injections were discussed and she was advis ed that injections are not usually performed if there is not significant pain. Initially it sounded like her pain was minimal. She clarified that it is not a usual kind of pain but i t is quite an uncomfortable and annoying sensation. In the end I did agree to try a C7-T1 I LESI left of midline. 2. We discussed that a traction unit may be worth trying. She could not recall if manual traction done in PT had hurt or helped or if anyone in PT had recommended a home traction un it. I recommend that she talke to her physical therapist about a home cervical traction uni t and specifically ask if there is some reason they did not pursue that. I don't feel that it would be contraindicated and if the therapist has no reservations about trying that I wou ld recommend we pursue the use of a home traction unit. 3. Medications such as gabapentin and Cymbalta were dicussed today as these can help with myofascial pain and neuropathic pain. The patient would like to avoid medications at this t keyonna. She was advised that if injections fail to provide relief medications would be the next step. ELECTRONICALLY EDITED AND SIGNED BY: Olayinka Rothman MD, 01/18/2016 I Ashley Trevino am personally taking down the notes in presence of Dr. Olayinka carpio 01/16/2016 documented in this encounter Plan of Treatment +--------+---------+ + + + | Date | Type | Specialty | Care Team | Description | +--------+---------+ + + + | 10/06/ | Office | Cardiology | Elvin Jamil | | | 2019 | Visit | | [address] | | | | | | [facility] | | | | | | [place], [place] | | | | | | [id number] | | | | | | | | +--------+---------+ + + + documented as of this encounter Results FL ADE Cervical Thoracic Interlaminar (03/08/2016 1:05 PM PST) + + | Specimen | + + | | + + + + + | Narrative | Performed At | + + + | 03/08/2016 CERVICAL INTERLAMINAR EPIDURAL STEROID INJECTION | [facility] | | CLINICAL HISTORY: ICD-10 CODE M54.12 CERVICAL RADICULOPATHY [place] | [facility] | | Eva Cummins presents to the fluoroscopy suite for a [facility] | | fluoroscopically-guided C7-T1 interlaminar epidural steroid [...] + + | Performing | Address | City/State/Inscription [facility] Cent[facility] | Phone Number | | Organization | | | | + + + + + | [address] | [address] | [place] | [phone] | | [facility] | | [address] | | | - IMAGING | | | | + + + + + documented in this encounter Visit Diagnoses + + | Diagnosis | + + | Cervical radiculopathy - Primary Brachial neuritis or radiculitis nos | + + | S/P cervical spinal fusion Arthrodesis status | + + | Foraminal stenosis of cervical region Spinal stenosis in cervical region | + + documented in this encounter
--- OUTSIDE RECORDS SUMMARY | ~2019-07-17 | XMS | Encounter Summary ---
Demographics + + + | Address | [address] | | | [place] [address] | + + + | Home Phone [...] [place] | | | | | [address] | | + + + + + | Beatrice Paulson | ECON | [address] | | | | | [place] | | | | | [address] | | + + + + + Care Team Providers + +------+ + | Care Dump Grader Name | Role | Phone | + +------+ + PCP | Unavailable | + +------+ + Encounter Details +--------+ + + + + | Date | Type | Department | Care Team | Description | +--------+ + + + + | 05/24/ | Hospital | [facility] | Justen Ribera | | | 2009 - | Encounter | MED CTR GENERIC IP | F, [address] | | | | | CONV DEPT [address] [place], [place] | | | 05/25/ | | [place], | [address] | | | 2009 | | [place] [address] | [phone] | | | | | [phone] | | | +--------+ + + + [...] [place] | | | | | | [address] | | | | | | | | +--------+---------+ + + + documented as of this encounter Visit Diagnoses Not on filedocumented in this encounter"
--- OUTSIDE RECORDS SUMMARY | ~2019-07-17 | XMS | Encounter Summary ---
Demographics + + + | Address | [address] | | | [place] [address] | + + + | Home Phone [...] [place] | | | | | [address] | | + + + + + | Beatrice Paulson | ECON | [address] | | | | | [place] | | | | | [address] | | + + + + + Care Team Providers + +------+ + | Care Perfume And Toilet Water Maker Name | Role | Phone | + +------+ + PCP | Unavailable | + +------+ + Encounter Details +--------+ + + + + | Date | Type | Department | Care Team | Description | +--------+ + + + + | 09/20/ | Hospital | [facility] | Olayinka Rothman | | | 2009 | Encounter | MED CTR XRAY [address] | [address], [address] | | | | | [place] | [facility] [place] | | | | | [place] [address] | [address] | | | | | [phone] | | | +--------+ + + + [...] [place] | | | | | | [address] | | | | | | | | +--------+---------+ + + + documented as of this encounter Visit Diagnoses Not on filedocumented in this encounter"
--- OUTSIDE RECORDS SUMMARY | ~2019-07-17 | XMS | Encounter Summary ---
Demographics + + + | Address | [address] | | | [place] [address] | + + + | Home Phone [...] | + + + + + | Veroniac Anderson | ECON | [place] | | | | | [address] | | + + + + + | Beatrice Paulson | ECON | [address] | | | | | [place] | | | | | [address] | | + + + + + Care Team Providers + +------+ + | Care Lunch Truck Driver Name | Role | Phone | + +------+ + | Parvez Vail MD | PCP | | + +------+ + Encounter Details +--------+ + + + + | Date | Type | Department | Care Team | Description | +--------+ + + + + | 04/30/ | Orders Only | [facility] | Pranav Villar DNP | | | 2019 | | VASCULAR SURGERY | [address] | | | | | [address] | [place], [place] | | | | | [place], [place] | [address] | | | | | [address] | | | | | | [phone] | | | +--------+ + + + [...] [address] | | | | | | [facility] | | | | | | [place] | | | | | | [address] | | | | | | | | +--------+---------+ + + + documented as of this encounter Visit Diagnoses Not on filedocumented in this encounter"
--- OUTSIDE RECORDS SUMMARY | ~2019-07-17 | XMS | Encounter Summary ---
Demographics + + + | Address | [address] | | | [place] [address] | + + + | Home Phone [...] [place] | | | | | [address] | | + + + + + | Beatrice Paulson | ECON | [address] | | | | | [place] | | | | | [address] | | + + + + + Care Team Providers + +------+ + | Care Union Carpenter Name | Role | Phone | + +------+ + | Parvez Vail MD | PCP | | + +------+ + Reason for Visit +--------+ + | Reason | Comments | +--------+ + | Other | Patient david. | +--------+ + Encounter Details +--------+ + + + + | Date | Type | Department | Care Team | Description | +--------+ + + + + | 01/19/ | Telephone | [facility] | Destini Espinoza | Other (Patient david. | | 2018 | | CARDIOLOGY FAUSTO Rubin, Developing Machine Operator | ) | | | | [address] | | | | | | [place], [place] | | | | | | [address] | | | | | | [phone] | | | +--------+ + + + [...] [place] | | | | | | [address] | | | | | | | | +--------+---------+ + + + documented as of this encounter Visit Diagnoses Not on filedocumented in this encounter"
--- OUTSIDE RECORDS SUMMARY | ~2019-07-17 | XMS | Encounter Summary ---
Demographics + + + | Address | [address] | | | [place] [address] | + + + | Home Phone | | + + + | Preferred Language | Unknown | + + + | Marital Status | | + + + | Adventist Affiliation | Unknown | + + + [...] [place] | | | | | [address] | | + + + + + | Beatrice Paulson | ECON | [address] | | | | | [place] | | | | | [address] | | + + + + + Care Team Providers + +------+ + | Care Consulting Practice Director Name | Role | Phone | [...] + + | 01/31/ | Telephone | [facility] | Wilton Smith, | Other | | 2014 | | NEUROSURGERY [address] | DO [address] | | | | | [address] | [address] [place], [place] | | | | | [place], [place] | [id number] | | | | | [address] | | | | | | [phone] | | | +--------+ + + + [...] | | | | | Lizzie Garcia [facility] | | | | | | [place] | | | | | | [address] | | | | | | | | +--------+---------+ + + + documented as of this encounter Visit Diagnoses Not on filedocumented in this encounter"
--- OUTSIDE RECORDS SUMMARY | ~2019-07-17 | XMS | Encounter Summary ---
Demographics + + + | Address | [address] | | | [place] [address] | + + + | Home Phone | | + + + | Preferred Language | Unknown | + + + | Marital Status | | + + + | Taoist Affiliation | Unknown | + + + | Race | Unknown | + + + | Ethnic Group | Unknown | + + + Author + + + | Author | [facility] | | | and [place] | + + + | Organization | [facility] | | | and [place] | + + + | Address | Unknown | + + + | Phone | Unavailable | + + + Support + + + + + | Name | Relationship | Address | Phone | + + + + + | Veronica Anderson | ECON | [place] | | | | | [address] | | + + + + + | Beatrice Paulson | ECON | [address] | | | | | [place] | | | | | [address] | | + + + + + Care Team Providers + +------+ + | Care Financial Foundations Associate Name | Role | Phone | + [...] | Radiology | Diagnoses | [place], | [facility] | | Review | | | Persistent | Elvin | REGIONAL | | | | | atrial | MD Reji | MEDICAL | | | | | fibrillation | [address] | [address] | | | | | (HCC) | [employer]als | [address] | | | | | Procedures | Drive, [address] | [place], [place] | | | | | [address] | [place], | [address] | | | | | [place] | [place] [address] | Phone: | | | | | wes moffett | Phone: | [phone] | | | | | Cont | [phone] | Fax: | | | | | | Fax: | [phone] | | | | | | [phone] | | + +--------+ + + + [...] | Procedures | Drive, [address] | [place], [place] | | | | | [address] | [place], | [address] | | | | | [place] | [place] [address] | Phone: | | | | | wes Gillis w | Phone: | [phone] | | | | | Cont | [phone] | Fax: | | | | | | Fax: | [phone] | | | | | | [phone] | | + +--------+ + + + + Encounter Details +--------+ + + + + | Date | Type | Department | Care Team | Description | +--------+ + + + + | 03/12/ | Hospital | [facility] | Elvin Jamil | Persistent atrial | | 2020 | Encounter | [facility] | MD [address] | fibrillation (HCC) | | | | [address] | [employer], [facility] [[email or web address]] | | | | | [place], [place] | [place], [place] | | | | | [address] | [address] | | | | | [phone] | | | +--------+ + + + [...] [address] | | | | | | [facility] | | | | | | [place] | | | | | | [address] | | | | | | | [...] | | | | | Signed by: aN Pennington, [place] | | Sign Date/Time: 03/16/2019 [...] PST | | | | | Starting [facility] 03/12/19 at 1725, For | | | | | | | 1 dose, Cat Scanner | | | | | | + +--------+ +---------+------+------+ +---+---+ | | | +---+---+ documented in this encounter"
--- OUTSIDE RECORDS SUMMARY | ~2019-07-17 | XMS | Encounter Summary ---
Demographics + + + | Address | [address] | | | [place] [address] | + + + | Home Phone | | + + + | Preferred Language | Unknown | + + + | Marital Status | | + + + | Worship Affiliation | Unknown | + + + | Race | Unknown | + + + | Ethnic Group | Unknown | + + + Author + + + | Author | [facility] | | | and [place] | + + + | Organization | [facility] | | | and [place] | + + + | Address | Unknown | + + + | Phone | Unavailable | + + + Support + + + + + | Name | Relationship | Address | Phone | + + + + + | Veronica Anderson | ECON | [place] | | | | | [address] | | + + + + + | Beatrice Paulson | ECON | [address] | | | | | [place] | | | | | [address] | | + + + + + Care Team Providers + +------+ + | Care Residential Worker Name | Role | Phone | [...] + + | 04/30/ | Telephone | [facility] | Priscilla Fuentes, | Follow-up | | 2019 | | VASCULAR SURGERY | RN | | | | | [address] | | | | | | [place] | | | | | | [address] | | | | | | [phone] | | | +--------+ + + + [...] | | | | | Lizzie Garcia [facility] | | | | | | [place] | | | | | | [address] | | | | | | | | +--------+---------+ + + + documented as of this encounter Visit Diagnoses Not on filedocumented in this encounter"
--- OUTSIDE RECORDS SUMMARY | ~2019-07-17 | XMS | Encounter Summary ---
Demographics + + + | Address | [address] | | | [place] [address] | + + + | Home Phone [...] [place] | | | | | [address] | | + + + + + | Beatrice Paulson | ECON | [address] | | | | | [place] | | | | | [address] | | + + + + + Care Team Providers + +------+ + | Care Supervisor Cell Efficiency Name | Role | Phone | + +------+ + | Parvez Vail MD | PCP | | + +------+ + Encounter Details +--------+ + + + + | Date | Type | Department | Care Team | Description | +--------+ + + + + | 12/18/ | Orders Only | [facility] | Lori Recinos DO | Other persistent | | 2019 | | CARDIOLOGY [place] | [address] | atrial fibrillation | | | | [address] | [place], [place] | ([facility]) (Primary Dx) | | | | [place], [place] | [address] | | | | | [address] | | | | | | [phone] | | | +--------+ + + + [...] [place] | | | | | | [address] | | | | | | | | +--------+---------+ + + + documented as of this encounter Visit Diagnoses + + | Diagnosis | + + | Other persistent atrial fibrillation (HCC) - Primary | + + documented in this encounter"
--- OUTSIDE RECORDS SUMMARY | ~2019-07-17 | XMS | Encounter Summary ---
Demographics + + + | Address | [address] | | | [place] [address] | + + + | Home Phone | | + + + | Preferred Language | Unknown | + + + | Marital Status | | + + + | Yarsanism Affiliation | Unknown | + + + | Race | Unknown | + + + | Ethnic Group | Unknown | + + + Author + + + | Author | [facility] | | | and [place] | + + + | Organization | [facility] | | | and [place] | + + + | Address | Unknown | + + + | Phone | Unavailable | + + + Support + + + + + | Name | Relationship | Address | Phone | + + + + + | Veronica Anderson | ECON | [place] | | | | | [address] | | + + + + + | Beatrice Paulson | ECON | [address] | | | | | [place] | | | | | [address] | | + + + + + Care Team Providers + +------+ + | Care Hose Turner Name | Role | Phone | + [...] [address] | | | | | | [place], [place] | | | | | | [address] | | | | | | [phone] | | | +--------+ + + + [...] [place] | | | | | | [address] | | | | | | | [...]
--- OUTSIDE RECORDS SUMMARY | ~2019-07-17 | XMS | Encounter Summary ---
Demographics + + + | Address | [address] | | | [place] [address] | + + + | Home Phone | | + + + | Preferred Language | Unknown | + + + | Marital Status | | + + + | Buddhist Affiliation | Unknown | + + + | Race | Unknown | + + + | Ethnic Group | Unknown | + + + Author + + + | Author | [facility] | | | and [place] | + + + | Organization | [facility] | | | and [place] | + + + | Address | Unknown | + + + | Phone | Unavailable | + + + Support + + + + + | Name | Relationship | Address | Phone | + + + + + | Veronica Anderson | ECON | [place] | | | | | [address] | | + + + + + | Beatrice Paulson | ECON | [address] | | | | | [place] | | | | | [address] | | + + + + + Care Team Providers + +------+ + | Care Thermal Engineer Name | Role | Phone | [...] | | | Rehabilitatio | spondylosis | [address] | [address] | | | | n | Cervical | [address] | [address] [place] | | | | | radiculopath | [place], | [place] | | | | | y | [place] | [address] Phone: | | | | | | [address] | [phone] | | | | | | Phone: | Fax: | | | | | | [phone] | [phone] | | | | | | Fax: | | | | | | | [phone] | | +--------+--------+ + + + + Encounter Details +--------+---------+ + + + | Date | Type | Department | Care Team | Description | +--------+---------+ + + + | 01/15/ | Office | [facility] | Olayinka Rothman | Cervical | | 2016 | Visit | PHYSIATRY [address] | [address], [address] | radiculopathy | | | | [address] | [address] [place] | (Primary Dx); S/P | | | | [place] | [address] | cervical spinal | | | | [address] | | fusion; Foraminal | | | | [phone] | | stenosis of cervical | | [...] encounter Patient Instructions Patient Instructions Ashley Jorge, Theatrical Dresser - 01/16/2016 10:03 AM PST1.Stefania [place] about [...] of the procedure you must provide a regional company flatbed truck driver to take you home. For all procedur [...] y.o. female being seen today at the [facility] t of Dr. Michael Will for complaints [...] Left 06/28/[address] Will at [facility] Squamous cell carcinoma (left jawline) removed Left 08/25/14 Performed by Rufina Bach NP for Dr. Shah Amorita CURRENT MEDICATIONS: Current Outpatient Prescriptions Medication Sig [...] has no apparent deficits with short or [facility] memory. She has appropriate fund of knowledge [...] [address] | | | | | | [facility] | | | | | | [place], [place] | | | | | | [id number] | | | | | | | [...] CLINICAL HISTORY: ICD-10 CODE M54.12 CERVICAL RADICULOPATHY [place] | [facility] | | Eva Cummins presents to the fluoroscopy suite for a [facility] | | fluoroscopically-guided C7-T1 interlaminar epidural steroid [...] + + | Performing | Address | City[facility] | Phone Number | | Organization | | | | + + + + + | [address] | [address] | [place] | [phone] | | [facility] | | [address] | | | - IMAGING | | [...]
--- OUTSIDE RECORDS SUMMARY | ~2019-07-17 | XMS | Encounter Summary ---
Demographics + + + | Address | [address] | | | [place] [address] | + + + | Home Phone [...] [place] | | | | | [address] | | + + + + + | Beatrice Paulson | ECON | [address] | | | | | [place] | | | | | [address] | | + + + + + Care Team Providers + +------+ + | Care Language Tutor Name | Role | Phone | + [...] | | | | | disease) | [place], [place] | | | | | | (HCC) | [address] | | | | | | Procedures | Phone: | | | | | | VAS Lwr Ext | [phone] | | | | | | Art Lt w CHRIS | Fax: | | | | | | Multi Lvl | [phone] | | +--------+--------+ + + + + Encounter Details +--------+ + + + + | Date | Type | Department | Care Team | Description | +--------+ + + + + | 04/26/ | Hospital | [facility] | | PAD (peripheral | | 2020 | Encounter | VASCULAR SURGERY | | artery disease) | | | | ULTRASOUND [address] | | ([facility]) | | | | [address] | | | | | | [place], [place] | | | | | | [address] | | | | | | [phone] | | | +--------+ + + + [...] | | | | | Lizzie Garcia [facility] | | | | | | [place] | | | | | | [address] | | | | | | | [...] | MULTI LEVEL | | PDT | ([facility]) | results section. | + +--------+ [...] | | | analysis: Left lower extremity: WIRELESS ENGINEER prox: 196, triphasic DFA | | | prox: 141, triphasic SFA prox: 152, triphasic SFA Mid: 99, triphasic | | | SFA dist: 96, triphasic Pop mid: 114, triphasic CARLOS prox: 106, | | | triphasic CARLOS dist: 97, triphasic STORAGE BATTERY CHARGER prox: 101, triphasic STORAGE BATTERY CHARGER | | | dist: 53, triphasic Peroneal [...] | | Left lower extremity: | | WIRELESS ENGINEER prox: 196, triphasic | | DFA prox: 141, triphasic | | SFA prox: 152, triphasic | | SFA Mid: 99, triphasic | | SFA dist: 96, triphasic | | Pop mid: 114, triphasic | | CARLOS prox: 106, triphasic | | CARLOS dist: 97, triphasic | | STORAGE BATTERY CHARGER prox: 101, triphasic | | STORAGE BATTERY CHARGER dist: 53, triphasic | | Peroneal prox: [...]
--- OUTSIDE RECORDS SUMMARY | ~2019-07-17 | XMS | Encounter Summary ---
Demographics + + + | Address | [address] | | | [place] [address] | + + + | Home Phone [...] [place] | | | | | [address] | | + + + + + | Beatrice Paulson | ECON | [address] | | | | | [place] | | | | | [address] | | + + + + + Care Team Providers + +------+ + | Care Ap Processor Name | Role | Phone | + +------+ + PCP | Unavailable | + +------+ + Encounter Details +--------+ + + + + | Date | Type | Department | Care Team | Description | +--------+ + + + + | 05/25/ | Hospital | [facility] | Justen Ribera | | | 2010 | Encounter | MED CTR XRAY [address] | F, [address] | | | | | [address] [place] | [place], [place] | | | | | [place] [address] | [address] | | | | | [phone] | [phone] | | | | | | | [...] | | | | | Lizzie Garcia [facility] | | | | | | [place] | | | | | | [address] | | | | | | | [...] At | + + + | [facility] Diagnostic Imaging Department | [place] | | [address] [facility] | [facility] | | TWO VIEW LUMBAR SPINE SERIES, [...] Transcribed Date/Time: 05/25/2010 | | | 13:52 Gas Distribution Supervisor: <Electronically Signed by Tulio Calderon | | | MD Jerson> 05/25/10 6616 | | + + + + -+ | Procedure Note | + -+ | Don Delcid Conversion - 03/20/2013 2:42 PM [facility] | | Diagnostic Imaging Department [address] [facility] | | TWO VIEW LUMBAR SPINE SERIES, [...] 13:09 Transcribed | | Date/Time: 05/25/2010 13:52 Gas Distribution Supervisor: <Electronically Signed by Tulio | | Kvng Arthur MD> 05/25/10 0714 | | | |FINDINGS: There is stable [...] 13:09 | |Transcribed Date/Time: 05/25/2010 13:52 | |Gas Distribution Supervisor: | |<Electronically Signed by Tulio Arthur MD> [...] At | + + + | [facility] Diagnostic Imaging Department | [facility] | | [address] [facility] | [facility] | | TWO VIEW CERVICAL SPINE SERIES [...] Transcribed Date/Time: | | | 05/25/2010 13:46 Gas Distribution Supervisor: <Electronically Signed | | | by Tulio Arthur MD> 05/25/10 1736 | | + + + + + | Procedure Note | + + | Bhavin, Rad Conversion - 03/20/2013 2:42 PM [facility] | | Diagnostic Imaging Department [address] [place] [address] | | TWO VIEW CERVICAL SPINE SERIES [...] Date/Time: 05/25/2010 13:10 Transcribed Date/Time: 05/25/2010 13:46 Gas Distribution Supervisor: | | <Electronically Signed by Tulio Arthur MD> 05/25/10 8751 | |COMPARISON: December 2009. | | | [...] 13:10 | |Transcribed Date/Time: 05/25/2010 13:46 | |Gas Distribution Supervisor: | |<Electronically Signed by Tulio Arthur MD> [...]
--- OUTSIDE RECORDS SUMMARY | ~2019-07-17 | XMS | Encounter Summary ---
Demographics + + + | Address | [address] | | | [place] [address] | + + + | Home Phone | | + + + | Preferred Language | Unknown | + + + | Marital Status | Single | + + + | Sabianism Affiliation | Unknown | + + + | Race | White | + + + | Ethnic Group | Not or | + + + Author + + + | Author | [facility] | + + + | Organization | [facility] | + + + | Address | Unknown | + + + | Phone | Unavailable | + + + Support + + +---------+ + | Name | Relationship | Address | Phone | + + +---------+ + | Beatrice Paulson | ECON | Unknown | | + + +---------+ + Care Team Providers + +------+ + | Care Project Management Analyst Name | Role | Phone | + +------+ + | Venkata Pettit MD | PCP | | + +------+ + Reason for Visit +--------+ + | Reason | Comments | +--------+ + | Other | upload outside OV | +--------+ + Encounter Details +--------+ + + + + | Date | Type | Department | Care Team | Description | +--------+ + + + + | 11/27/ | Abstract | Neurology | Teressa Triplett MD | Other (upload | | 2012 | | [facility] | [address] | outside [place]) | | | | at [facility] | [place] [address] | | | | | Health & Healing | [phone] | | | | | [address] | | | | | | Mailcode: CH8C | | | | | | [facility] | | | | | | and Healing, | | | | | | Building | | | | | | Floor [place], [place] | | | | | | [address] | | | | | | [phone] | | | +--------+ + + + [...]
--- OUTSIDE RECORDS SUMMARY | ~2019-07-17 | XMS | Encounter Summary ---
Demographics + + + | Address | [address] | | | [place] [address] | + + + | Home Phone | | + + + | Preferred Language | Unknown | + + + | Marital Status | Single | + + + | Jew Affiliation | Unknown | + + + | Race | White | + + + | Ethnic Group | Not or | + + + Author + + + | Author | [facility] | + + + | Organization | [facility] | + + + | Address | Unknown | + + + | Phone | Unavailable | + + + Support + + +---------+ + | Name | Relationship | Address | Phone | + + +---------+ + | Beatrice Paulson | ECON | Unknown | | + + +---------+ + Care Team Providers + +------+ + | Care Analytics Associate Name | Role | Phone | [...] Closed | | Clinical | Diagnoses | [place], | Cnl Emg | | | | Neurophysiolo | Myalgia | Hyacinth Alarcon, | [address] [address] | | | | gy | Procedures | ,[facility] [address] | | | | | AUTONOMIC | [address] | Mailcode: | | | | | REFLEX | [place], | [address] | | | | | TESTING,ADUL | [place] | for Health | | | | | T - | [address] | and Healing, | | | | | NEUROLOGY | Phone: | Building 1, | | | | | | [phone] | 8th Floor | | | | | | Fax: | [place], [place] | | | | | | [phone] | [address] | | | | | | | Phone: | | | | | | | [phone] | | | | | | | Fax: | | | | | | | [phone] | +--------+--------+ + + + + Encounter Details +--------+ + + + + | Date | Type | Department | Care Team | Description | +--------+ + + + + | 11/07/ | Hospital | Neurophysiology | Marian Robert, | | | 2012 | Encounter | EMG at [facility] [address] | ,PhD K[place], | | | | | [address] | [address] | | | | | [facility] | [address] | | | | | [place], 10th Floor | [place], [place] | | | | | [place] | [address] [place] | | | | | [address] | [place], | | | | | [phone] | [place] [address] | | | | | | [phone] | | +--------+ + + + + [...]
--- OUTSIDE RECORDS SUMMARY | ~2019-07-17 | XMS | Encounter Summary ---
Demographics + + + | Address | [address] | | | [place] [address] | + + + | Home Phone [...] [place] | | | | | [address] | | + + + + + | Beatrice Paulson | ECON | [address] | | | | | [place] | | | | | [address] | | + + + + + Care Team Providers + +------+ + | Care Medical Claims Processor Name | Role | Phone | + +------+ + | Venkata Pettit MD | PCP | | + +------+ + Encounter Details +--------+ + + + + | Date | Type | Department | Care Team | Description | +--------+ + + + + | 11/17/ | Hospital | [facility] | | | | 2012 | Encounter | MED CTR XRAY [address] | | | | | | [place] [address] | | | | | | [place] [address] | | | | | | [phone] | | | +--------+ + + + [...] [address] | | | | | | [facility] | | | | | | [place] | | | | | | [address] | | | | | | | | +--------+---------+ + + + documented as of this encounter Procedures + +--------+ + + + | Procedure Name | Priori | Date/Time | Associated Diagnosis | Comments | | | ty | | | | + +--------+ + + + | MRI LUMBAR SPINE W | Routin | 11/17/2012 | | Results for this | | WO CONTRAST | e | 2:28 PM | | procedure are in the | | | | PDT | | results section. | + +--------+ + + + documented in this encounter Results MRI Lumbar Spine w wo Contrast (11/17/2012 2:28 PM PDT) + + | Specimen | + + | | + + + + + | Narrative | Performed At | + + + | [facility] Diagnostic Imaging | [place] | | Department [address] [facility] | [facility] | | [ rep [address]] [ rep [facility] | | [facility]] Signed | - IMAGING | | | | | Patient Name: KASSIE BEAR Physician: | | | [birth year] : 1940 Age: 72 Sex: F Unit #: [id number] | | | Exam Date: 11/17/12 Location: [facility] | | | Report #: [id number] Page: | | | %(RAD)RES..mtdd.print.filter("pg") of %(RAD) | | | RES..mtdd.print.filter("tpg") | | | | | | Accession Number: [id number] | | | MRI OF THE LUMBAR SPINE CLINICAL HISTORY: 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 COMPARISON: MRI of the lumbar | | | spine dated 01/31/2012, 11/17/2008, lumbar spine x-ray dated | | | 07/25/2011. PROTOCOL: Sagittal T2, sagittal T1, axial T2, | | | axial T1, sagittal STIR, coronal T2, sagittal T1 fat- saturated | | | postgadolinium, coronal T1 fat-saturated postgadolinium, axial T1 | | | fat-saturated postgadolinium. The patient was administered 10 mL | | | Gadavist. FINDINGS: Again visualized is hardware for | | | posterior fusion of the spinous processes at level L3 through L4. | | | Vertebral body heights are preserved with no evidence for compression | | | fractures. Partially imaged is a round structure of high T2 and T1 | | | signal in the T11 vertebral body anteriorly with some small areas of | | | focal low signal that is most consistent with hemangioma. This has | | | remained stable compared to prior studies. Small to moderate-sized | | | anterior osteophytes are noted at multiple levels of the lumbar | | | spine. There is mild grade I anterolisthesis of L4 over L5. Modic | | | type-1 changes are observed involving the inferior endplates of L1 | | | and L2. There is disk desiccation involving the lower | | | thoracic spine and lumbar spine. Mild disk height loss is present at | | | L1-2 through L3-4. 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 The visualized spinal cord and | | | cauda equina demonstrate normal signal with no evidence for | | | myelomalacia or mass lesions. The conus medullaris terminates at level | | | L2, normal. There is some stable thickening of the posterior | | | longitudinal ligament at level T12-L1 with some edema. | | | Limited evaluation of the soft tissue structures demonstrate no acute | | | findings. L1-2: Four mm biforaminal disk bulges are seen | | | along with mild facet and ligamentum flavum hypertrophy. There is no | | | significant central canal stenosis. Mild right and moderate left | | | neural foraminal canal stenoses are seen. L2-3: Posterior | | | disk bulging is present that measures 4 mm in the right neural | | | foramen, 4 mm centrally , and 5 mm in the left neural foramen. There | | | is moderate facet hypertrophy and ligamentum flavum hypertrophy. | | | Overall, there is moderate central canal stenosis. The AP dimension is | | | 8 mm. Moderate right and moderate to severe left neural foraminal | | | canal stenoses are noted. L3-4: A 2 mm posterior disk bulge | | | is present along with mild facet hypertrophy. There is mild central | | | canal stenosis. The AP dimension is 10 mm. There is encroachment upon | | | the bilateral L3 nerve roots. Moderate bilateral neural foraminal | | | canal stenoses are seen. L4-5: Posterior disk bulging is | | | present that measures 2 mm in the right neural foramen, 2 mm centrally | | | , and 7 mm in the left neural foramen. Moderate facet hypertrophy | | | and ligamentum flavum hypertrophy are observed. There is mild grade | | | I anterolisthesis of L4 over L5. Overall, there is moderate to | | | severe central canal stenosis. The AP dimension is 7 mm. Moderate | | | right and moderate to severe left neural foraminal canal stenoses | | | are observed. There is encroachment upon the bilateral L4 nerve roots. | | | L5-S1: A 1 mm posterior disk bulge is present with no | | | significant central canal stenosis. This leads to mild bilateral | | | neural foraminal canal stenoses. Overall degenerative | | | changes have remained grossly stable. IMPRESSION: 1. | | | AT LEVEL L4-5, A POSTERIOR DISK BULGE IS SEEN THAT MEASURES 2 MM IN | | | THE RIGHT NEURAL FORAMEN, 2 MM CENTRALLY, AND 7 MM IN THE LEFT | | | NEURAL FORAMEN. THERE IS GRADE I ANTEROLISTHESIS OF L4 OVER L5. FACET | | | AND LIGAMENTUM FLAVUM HYPERTROPHY ARE PRESENT WELL. OVERALL, | | | THERE IS MODERATE TO SEVERE CENTRAL CANAL STENOSIS, MODERATE RIGHT | | | NEURAL FORAMINAL CANAL STENOSIS, AND MODERATE TO SEVERE LEFT NEURAL | | | FORAMINAL CANAL STENOSIS. THERE IS ENCROACHMENT UPON THE BILATERAL L4 | | | NERVE ROOTS. 2. AT LEVEL L2-3, POSTERIOR DISK BULGING IS | | | SEEN THAT MEASURES 4 MM IN THE RIGHT NEURAL FORAMEN, 4 MM CENTRALLY, | | | AND 5 MM IN THE LEFT NEURAL FORAMEN. THERE IS ALSO FACET AND | | | LIGAMENTUM FLAVUM HYPERTROPHY. OVERALL, THERE IS MODERATE CENTRAL | | | CANAL STENOSIS. MODERATE RIGHT AND MODERATE TO SEVERE LEFT NEURAL | | | FORAMINAL CANAL STENOSES ARE ALSO SEEN. 3. AT L3-4, A 2 MM | | | POSTERIOR DISK BULGE IS PRESENT ALONG WITH MILD FACET HYPERTROPHY. | | | THERE IS MILD CENTRAL CANAL STENOSIS. MODERATE BILATERAL NEURAL | | | FORAMINAL CANAL STENOSES ARE PRESENT WITH ENCROACHMENT UPON THE | | | BILATERAL L3 NERVE ROOTS. 4. LESSER DEGENERATIVE CHANGES AT | | | THE OTHER LEVELS DESCRIBED ABOVE. 5. STABLE POSTERIOR | | | FUSION OF THE SPINOUS PROCESSES FROM L3 THROUGH L4. | | | Dictated Date/Time: 11/17/2012 14:28 Transcribed Date/Time: | | | 11/17/2012 18:02 Commercial Cleaner: | | | <<Signature on File>> | | | Domingo | | | MD [id number] <Electronically signed by Domingo Ovalles MD> | | | Domingo Ovalles MD 11/17/12 1428 Commercial Cleaner: Sujatha | | | [email or web address]/07/13 1802 Venkata Pettit MD | | + + + + + + + + | Performing | Address | City/State/Zipcode | Phone Number | | Organization | | | | + + + + + | [facility] | [address] | [place] | [phone] | | [facility] | | [address] | | | - IMAGING | | | | + + + + + documented in this encounter Visit Diagnoses Not on filedocumented in this encounter
--- OUTSIDE RECORDS SUMMARY | ~2019-07-17 | XMS | Encounter Summary ---
Demographics + + + | Address | [address] | | | [place] [address] | + + + | Home Phone [...] [place] | | | | | [address] | | + + + + + | Beatrice Paulson | ECON | [address] | | | | | [place] | | | | | [address] | | + + + + + Care Team Providers + +------+ + | Care Lead Software Test Engineer Name | Role | Phone | [...] + + | 03/28/ | Telephone | [facility] | Michelle, | Follow-up(Procedure) | | 2017 | | PHYSIATRY [address] | [place] [address] | (pain log follow | | | | [address] | [address] | up) | | | | [place], [place] | [place] [address] | | | | | [address] | [phone] | | | | | [phone] | | | +--------+ + + + [...] [place] | | | | | | [address] | | | | | | | | +--------+---------+ + + + documented as of this encounter Visit Diagnoses Not on filedocumented in this encounter"
--- OUTSIDE RECORDS SUMMARY | ~2019-07-17 | XMS | Encounter Summary ---
Demographics + + + | Address | [address] | | | [place] [address] | + + + | Home Phone [...] [place] | | | | | [address] | | + + + + + | Beatrice Paulson | ECON | [address] | | | | | [place] | | | | | [address] | | + + + + + Care Team Providers + +------+ + | Care Buoy Tender Name | Role | Phone | [...] | | | Osteoarthrit | [address] [place] [address] | | | | | is of spine | [address] | [address] | | | | | with | [place] | AVE | | | | | radiculopath | [address] | [place] | | | | | y, lumbar | Phone: | [phone] | | | | | region S/P | [phone] | Phone: | | | | | lumbar | Fax: | [phone] | | | | | fusion | [phone] | Fax: | | | | | Procedures | | [phone] | | | | | MRI Lumbar [...] | | | Osteoarthrit | [address] [place] [address] | | | | | is of spine | [address] | [address] | | | | | with | [place], [place] | AVE | | | | | radiculopath | [address] | [place], [place] | | | | | y, lumbar | Phone: | [phone] | | | | | region S/P | [phone] | Phone: | | | | | lumbar | Fax: | [phone] | | | | | fusion | [phone] | Fax: | | | | | Procedures | | [phone] | | | | | CT Lumbar [...] Required | | Osteoarthrit | [address] [place] [address] | | | | | is of spine | [address] | [address] | | | | | with | [place] | AVE | | | | | radiculopath | [address] | [place] | | | | | y, lumbar | Phone: | [phone] | | | | | region S/P | [phone] | Phone: | | | | | lumbar | Fax: | [phone] | | | | | fusion | [phone] | Fax: | | | | | | | [phone] | +--------+ + + + + + Reason for Visit + + + | Reason | Comments | + + + | Follow-up | Back pain | + + + Encounter Details +--------+---------+ + + + | Date | Type | Department | Care Team | Description | +--------+---------+ + + + | 01/20/ | Office | [facility] | Wilton Smith, | 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
--- OUTSIDE RECORDS SUMMARY | ~2019-07-17 | XMS | Encounter Summary ---
Demographics + + + | Address | [address] | | | [place] [address] | + + + | Home Phone [...] [place] | | | | | [address] | | + + + + + | Beatrice Paulson | ECON | [address] | | | | | [place] | | | | | [address] | | + + + + + Care Team Providers + +------+ + | Care Vehicle Operator Name | Role | Phone | + +------+ + | Parvez Vail MD | PCP | | + +------+ + Reason for Visit + + + | Reason | Comments | + + + | Device Check | | + + + Encounter Details +--------+ + + + + | Date | Type | Department | Care Team | Description | +--------+ + + + + | 03/04/ | Telephone | [facility] | Elvin Jamil | Device Check | | 2019 | | CARDIOLOGY [place] | MD [address] | | | | | [address] | [facility] | | | | | [place], [place] | [place], [place] | | | | | [address] | [id number] | | | | | [phone] | | | +--------+ + + + [...] 1100 | | | | | | Natahniel Alfaro | | | | | | [place] | | | | | | [address] | | | | | | | | +--------+---------+ + + + documented as of this encounter Visit Diagnoses Not on filedocumented in this encounter"
--- OUTSIDE RECORDS SUMMARY | ~2019-07-17 | XMS | Encounter Summary ---
Demographics + + + | Address | [address] | | | [place] [address] | + + + | Home Phone [...] [place] | | | | | [address] | | + + + + + | Beatrice Paulson | ECON | [address] | | | | | [place] | | | | | [address] | | + + + + + Care Team Providers + +------+ + | Care Tank Bottom Assembler Name | Role | Phone | + [...] + + | 03/09/ | Telephone | [facility] | Wilton Smith, | New Medication | | 2016 | | NEUROSURGERY [address] | DO [address] | Request | | | | [address] | [address] [place], [place] | | | | | [place], [place] | [address] | | | | | [address] | | | | | | [phone] | | | +--------+ + + + [...] [place] | | | | | | [address] | | | | | | | | +--------+---------+ + + + documented as of this encounter Visit Diagnoses Not on filedocumented in this encounter"
--- OUTSIDE RECORDS SUMMARY | ~2019-07-17 | XMS | Encounter Summary ---
Demographics + + + | Address | [address] | | | [place] [address] | + + + | Home Phone | | + + + | Preferred Language | Unknown | + + + | Marital Status | | + + + | Tenriism Affiliation | Unknown | + + + [...] [place] | | | | | [address] | | + + + + + | Beatrice Paulson | ECON | [address] | | | | | [place] | | | | | [address] | | + + + + + Care Team Providers + +------+ + | Care Photogrammetric Surveyor Name | Role | Phone | + [...] | pain | [address] | [address] [place] | | | | | | [address] | [place], [place] | | | | | | [place], | [address] Phone: | | | | | | [place] [address] | [phone] | | | | | | Phone: | Fax: | | | | | | [phone] | [phone] | | | | | | Fax: | | | | | | | [phone] | | +--------+ + + + + + Reason for Visit +--------+ + | Reason | Comments | +--------+ + | Pain | | +--------+ + Encounter Details +--------+ + + + + | Date | Type | Department | Care Team | Description | +--------+ + + + + | 06/12/ | Telephone | [facility] | Wilton Smiht, | Pain | | 2016 | | NEUROSURGERY [address] | DO [address] | | | | | [address] [facility] | [address] [place], [place] | | | | | [place], [place] | [id number] | | | | | [address] | | | | | | [phone] | | | +--------+ + + + [...] | | | | | | [facility] | | | | | | [place] | | | | | | [address] | | | | | | | | +--------+---------+ + + + + + +--------+ + + | Name | Type | Priori | Associated Diagnoses | Order Schedule | | | | ty | | | + + +--------+ + + | Ambulatory referral | Outpatient | Routin | Mechanical low | Ordered: 06/21/2015 | | to Physical Medicine | Referral | e | back pain | | | Rehab | | | | | + + +--------+ + + documented as of this encounter Visit Diagnoses + + | Diagnosis | + + | Mechanical low back pain - Primary Lumbago | + + documented in this encounter"
--- OUTSIDE RECORDS SUMMARY | ~2019-07-17 | XMS | Encounter Summary ---
Demographics + + + | Address | [address] | | | [place] [address] | + + + | Home Phone | | + + + | Preferred Language | Unknown | + + + | Marital Status | | + + + | Cheondoism Affiliation | Unknown | + + + | Race | Unknown | + + + | Ethnic Group | Unknown | + + + Author + + + | Author | [facility] | | | and [place] | + + + | Organization | [facility] [...] [place] | | | | | [address] | | + + + + + | Beatrice Paulson | ECON | [address] | | | | | [place] | | | | | [address] | | + + + + + Care Team Providers + +------+ + | Care Vegetable Loader Name | Role | Phone | + +------+ + | Venkata Pettit MD | PCP | | + +------+ + Encounter Details +--------+ + + + + | Date | Type | Department | Care Team | Description | +--------+ + + + + | 01/13/ | Hospital | [facility] | Wilton Smith, | | | 2012 - | Encounter | MED CTR SURGICAL | DO [address] | | | | | [address] | [address] [place] [address] | | | 01/15/ | | [place] [address] | [id number] | | | 2012 | | [phone] | | | +--------+ + + + [...] Wilton Smith DO - 01/16/2013 2:15 [place] [address] Patient Name: HEMANT CUMMINSMEAGHAN Alarcon Provider: Wilton Smith DO Unit #: [id number] Location: [facility] : 1940 ADMISSION DATE: 01/13/2013 DISCHARGE DATE: [...] pain medicines. [facility] DISPOSITION: Transferred to inpatient rehabilitation. CONDITION: Improving. SPECIAL INSTRUCTIONS: The patient is instructed to participate with inpatient rehab. Avoid any extreme bending or twisting of her back. No lifting more than 5 pounds. Follow up with Dr. Smith as directed. She has verbally agreed to comply with these instructions. DISCHARGE MEDICATIONS 1. Tylenol. 2. [place]. 3. Maalox as needed. 4. Dulcolax as [...] BY: Wilton Smith DO Neurosurgery JOB #: [id number] EXT JOB #:[id number] <<Signature on File>> Wilton Smith DO1 03/22/12 [...] 1100 | | | | | | [facility] | | | | | | [place] | | | | | | [address] | | | | | | | [...] - 1.030 | [facility] | | | [place], | | | [facility] | | [...] + | [facility] | [address] | [place], [place] | [phone] | | [facility] | | [address] | | | - LABORATORY | | | | + + + + + | [facility] | [address] | [place], [place] | | | [facility] | | [address] | | | - LABORATORY | | | | + + + + + XR Lumbar Spine 2 or 3 Vw (01/14/2013 4:02 PM PST) + + | Specimen | + + | | + + + + + | Narrative | Performed At | + + + | [facility] Diagnostic Imaging | [place] | | Department [address] [facility], [place] | [facility] | | [ rep ct street[address]] [ rep [facility] | | st zip] Signed | - IMAGING | | | | | Patient Name: KASSIE CUMMINS Physician: | | | SYL. : 1940 Age: 72 Sex: F Unit #: [id number] | | | Exam Date: 01/14/13 Location: [address] [place] [address] | | | Report #: [id number] Page: | | | %(RAD)RES..mtdd.print.filter("pg") of %(RAD) | | | RES..mtdd.print.filter("tpg") | | | | | | Accession Number: [id number] | | | LUMBAR SPINE CLINICAL HISTORY: [...] Transcribed Date/Time: 01/14/2013 | | | 17:16 English As A Second Language Teacher: <<Signature | | | on File>> | | | | | | Michael Lopez MD01/15/13 0755 <Electronically signed by | | | Michael Lopez MD> Michael Lopez MD 01/14/13 | | | 1602 English As A Second Language Teacher: [email or web address] Qwpkmkygzotir52/04/13 1716 | | | | | + + + + + + + + | Performing | Address | City/State/Zipcode | Phone Number | | Organization | | | | + + + + + | [facility] | [address] | [place] | [phone] | | [facility] | | [address] | | | - IMAGING | | [...] [address] | [place] | [phone] | | [facility] | | [address] | | | - LABORATORY | | | | + + + + + | [facility]. | [address] | [place] | | | [facility] | | [address] | | | - LABORATORY | | | | + + + + + documented in this encounter Visit Diagnoses Not on filedocumented in this encounter
--- OUTSIDE RECORDS SUMMARY | ~2019-07-17 | XMS | Encounter Summary ---
Demographics + + + | Address | [address] | | | [place] [address] | + + + | Home Phone [...] [place] | | | | | [address] | | + + + + + | Beatrice Paulson | ECON | [address] | | | | | [place] | | | | | [address] | | + + + + + Care Team Providers + +------+ + | Care Independent Living Advisor Name | Role | Phone | + +------+ + | Parvez Vail MD | PCP | | + +------+ + Encounter Details +--------+ + + + + | Date | Type | Department | Care Team | Description | +--------+ + + + + | 04/19/ | Hospital | [facility] | | No Show | | 2020 | Encounter | VASCULAR SURGERY | | | | | | ULTRASOUND [address] | | | | | | [address] | | | | | | [place] | | | | | | [address] | | | | | | [phone] | | | +--------+ + + + [...] | | | Lizzie Garcia [facility] | | | | | | [place] | | | | | | [address] | | | | | | | | +--------+---------+ + + + documented as of this encounter Visit Diagnoses Not on filedocumented in this encounter"
--- OUTSIDE RECORDS SUMMARY | ~2019-07-17 | XMS | Clinical Summary ---
Demographics + + + | Address | [address] | | | [place] [address] | + + + | Home Phone [...] Team Providers + +------+ + | Care Rehabilitation Tech Name | Role | Phone | + +------+ + | Venkata Pettit MD | PCP | | + +------+ + Source Comments AMIRA is fully live on both [facility] Ambulatory and [facility] InPatient.[facility] Allergies No Known Allergies Medications + + [...] | | | | | | | [address] | | + +--------+ +--------+ + +--------+ | MODA MEDICARE | MODA | xxxxxxxxx | 01/31/ | [phone] | [address] | [address] | | SUPPLEMENT | MEDICA | | 2015-P | 4 | [phone] | | | | RE | | resent | | [place], | | | | SUPPLE | | | | [place] [address] | | | | MENT | | [...] | | al/Fam | | 1941 | [phone] | [place] [address] | | | theresa | | | 8 (Home) | | + +--------+ +--------+ + +"
--- OUTSIDE RECORDS SUMMARY | ~2019-07-17 | XMS | Encounter Summary ---
Demographics + + + | Address | [address] | | | [place] [address] | + + + | Home Phone [...] [place] | | | | | [address] | | + + + + + | Beatrice Paulson | ECON | [address] | | | | | [place] | | | | | [address] | | + + + + + Care Team Providers + +------+ + | Care Wind Turbine Electrical Engineer Name | Role | Phone | [...] | Stress Test | Nathaniel Garcia | [place], [place] | | | | | (Vasodilator | [facility], | [address] | | | | | ) | [place] [address] | Phone: | | | | | | Phone: | [phone] | | | | | | [phone] | Fax: | | | | | | Fax: | [phone] | | | | | | [phone] | | +--------+--------+ + + + + Diagnostic/Screening (Routine) + +--------+ + + + + | Status | Reason | Specialty | Diagnoses / | Referred By | Referred To | | | | | Procedures | Contact | Contact | + +--------+ + + + + | Pending | | Radiology | Diagnoses | [place], | [facility] | | Review | | | Persistent | Elvin | REGIONAL | | | | | atrial | MD Reji | MEDICAL | | | | | fibrillation | [address] | CENTER [address] | | | | | ([facility]) | Goethals | [address] | | | | | Procedures | Drive, Nathaniel F | [place], [place] | | | | | CT Angio Lt | [place], | [address] | | | | | Atrium/Pulmo | [place] [address] | Phone: | | | | | wes moffett | Phone: | [phone] | | | | | Cont | [phone] | Fax: | | | | | | Fax: | [phone] | | | | | | [phone] | | + +--------+ + + + + Reason for Visit + + + | Reason | Comments | + + + | Follow-up | | + + + Encounter Details +--------+---------+ + + + | Date | Type | Department | Care Team | Description | +--------+---------+ + + + | 03/06/ | Office | [facility] EP | Elvin Orellana | Persistent atrial | | 2020 | Visit | CARDIOLOGY [place] | MD Reji [address] | fibrillation (HCC) | | | | [address] | [place] | (Primary Dx); Chest | | | | [place], [place] | [place], [place] | discomfort; Sleep | | | | [address] | [address] | apnea, unspecified | | | | [phone] | | type | +--------+---------+ + + [...] atrial fibrillation. Ms. Bear underwent cardioversion with christianity of sinus rhythm several weeks ago. She [...] Surgeon: Lori Recinos DO; [place] [facility] [place] [facility] [place] 02/20/2019 Procedure: CV EP CARDIOVERSION; Surgeon: Elvin Orellana MD; [place] [facility] [place] [facility] Cataract Surgery 10/29/2011(left eye, Right [...] Left 06/28/[address] Will at [facility] TOTAL KNEE ARTHROPLASTY TRANSTHORACIC ECHOCARDIOGRAM 08/2018 [...] - ECG 12 lead; Standing - Void computer operations technician to OR; Standing - Skin prep; Standing [...] and cardioversion performed in December 2018 with christianity of sinus rhythm. She did note an improvement in her symptoms with christianity of sinus rhythm but unfortunately symptoms returned [...] 1100 | | | | | | [facility], [facility] | | | | | | [place] | | | | | | [phone] | | | | | | | [...] MD | | | | | | ([phone]) on 03/09/2019 | | | | | [...]
--- OUTSIDE RECORDS SUMMARY | ~2019-07-17 | XMS | Encounter Summary ---
Demographics + + + | Address | [address] | | | [place] [address] | + + + | Home Phone [...] [place] | | | | | [address] | | + + + + + | Beatrice Paulson | ECON | [address] | | | | | [place] | | | | | [address] | | + + + + + Care Team Providers + +------+ + | Care Marketing Technologist Name | Role | Phone | + +------+ + PCP | Unavailable | + +------+ + Encounter Details +--------+ + + + + | Date | Type | Department | Care Team | Description | +--------+ + + + + | 09/20/ | Hospital | [facility] | Olayinka Rothman | | | 2009 | Encounter | MED CTR XRAY [address] | T, [address] | | | | | [place] | [facility] [place] | | | | | [place] [address] | [address] | | | | | [phone] | | | +--------+ + + + [...] [place] | | | | | | [address] | | | | | | | | +--------+---------+ + + + documented as of this encounter Visit Diagnoses Not on filedocumented in this encounter"
--- OUTSIDE RECORDS SUMMARY | ~2019-07-17 | XMS | Encounter Summary ---
Demographics + + + | Address | [address] | | | [place] [address] | + + + | Home Phone | | + + + | Preferred Language | Unknown | + + + | Marital Status | | + + + | Orthodoxy Affiliation | Unknown | + + + [...] [place] | | | | | [address] | | + + + + + | Beatrice Paulson | ECON | [address] | | | | | [place] | | | | | [address] | | + + + + + Care Team Providers + +------+ + | Care Corrosion Control Engineer Name | Role | Phone | [...] + + | 04/02/ | Telephone | [facility] EP | Nery Rivero | Follow-up (Plan of | | 2019 | | CARDIOLOGY [place] RN | care) | | | | [address] | | | | | | [place] | | | | | | [address] | | | | | | [phone] | | | +--------+ + + + [...] [place] | | | | | | [address] | | | | | | | | +--------+---------+ + + + documented as of this encounter Visit Diagnoses Not on filedocumented in this encounter"
--- OUTSIDE RECORDS SUMMARY | ~2019-07-17 | XMS | Encounter Summary ---
Demographics + + + | Address | [address] | | | [place] [address] | + + + | Home Phone | | + + + | Preferred Language | Unknown | + + + | Marital Status | | + + + | Faith Affiliation | Unknown | + + + | Race | Unknown | + + + | Ethnic Group | Unknown | + + + Author + + + | Author | [facility] | | | and [place] | + + + | Organization | [facility] | | | and [place] | + + + | Address | Unknown | + + + | Phone | Unavailable | + + + Support + + + + + | Name | Relationship | Address | Phone | + + + + + | Veronica Anderson | ECON | [place] | | | | | [address] | | + + + + + | Beatrice Paulson | ECON | [address] | | | | | [place] | | | | | [address] | | + + + + + Care Team Providers + +------+ + | Care Sql Database Developer Name | Role | Phone | [...] | Wilton Alarcon DO | [address] | | | | | spasticity | [address] | [place], | | | | | Lumbago | [address] | [place] | | | | | Lumbar | [place] | [address] | | | | | spondylosis | [address] | Phone: | | | | | Lumbar | Phone: | [phone] | | | | | canal | [phone] | Fax: | | | | | stenosis | Fax: | [phone] | | | | | Weakness of | [phone] | | | | | | both [...] + + | 12/01/ | Hospital | [facility] | | Muscle spasticity; | | 2012 | Encounter | MED CTR XRAY [address] | | Lumbago; Lumbar | | | | [place] | | spondylosis; 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 | | [ rep ct clio1+2] [ rep [facility] | | [facility]] Signed | - IMAGING | | | | | Patient Name: KASSIE CUMMINS Physician: | | | CONSUELO : 1940 Age: 72 Sex: F Unit #: [id number] | | | Exam Date: 12/01/12 [place] [facility] | | | Report #: [id number] Page: | | | %(RAD)RES..mtdd.print.filter("pg") of %(RAD) | | | RES..mtdd.print.filter("tpg") | | | | | | Accession Number: [id number] | | | MRI THORACIC SPINE CLINICAL [...] Transcribed | | | Date/Time: 12/01/2012 19:29 Shell Coremaker: | | | <<Signature on File>> | | | | | | Michael Lopez MD12/02/12 0727 <Electronically signed by | | | Michael Lopez MD> Michael Lopez MD 12/01/12 | | | 1652 Shell Coremaker: [employer] Ujbalqdczgdma13/21/13 1929 | | | Wilton Smith DO | | + + + + + + + + | Performing | Address | City/State/Zipcode | Phone Number | | Organization | | | | + + + + + | [facility] | [address] | [place] | [phone] | | [facility] | | [address] | | | - IMAGING | | | | + + + + + MRI Cervical Spine w wo Contrast (12/01/2012 3:45 PM PDT) + + | Specimen | + + | | + + + + + | Narrative | Performed At | + + + | [facility] | [place] | | Department [address] [facility] | [facility] | | [ rep ct street1+2] [ rep [facility] | | st zip] Signed | - IMAGING | | | | | Patient Name: KASSIE CUMMINS Physician: | | | SITZ.20 : 1940 Age: 72 Sex: F Unit #: [id number] | | | Exam Date: 12/01/12 [place] [facility] | | | Report #: [id number] Page: | | | %(RAD)RES..mtdd.print.filter("pg") of %(RAD) | | | RES..mtdd.print.filter("tpg") | | | | | | Accession Number: [id number] | | | MRI CERVICAL SPINE WITH [...] Transcribed Date/Time: | | | 12/01/2012 18:00 Shell Coremaker: | | | <<Signature on File>> | | | | | | Michael Lopez MD12/02/12 0727 <Electronically signed by | | | Michael Lopez MD> Michael Lopez MD 12/01/12 | | | 1545 Shell Coremaker: [employer] Mkksfemylpjmy18/21/13 1800 | | | DO Venkata French MD | | + + + + + + + + | Performing | Address | City/State/Zipcode | Phone Number | | Organization | | | | + + + + + | [facility] | [address] | [place] | [phone] | | [facility] | | [address] | | | - IMAGING | | [...]
--- OUTSIDE RECORDS SUMMARY | ~2019-07-17 | XMS | Encounter Summary ---
Demographics + + + | Address | [address] | | | [place] [address] | + + + | Home Phone [...] [place] | | | | | [address] | | + + + + + | Beatrice Paulson | ECON | [address] | | | | | [place] | | | | | [address] | | + + + + + Care Team Providers + +------+ + | Care Shot Blaster Name | Role | Phone | + +------+ + PCP | Unavailable | + +------+ + Encounter Details +--------+ + + + + | Date | Type | Department | Care Team | Description | +--------+ + + + + | 12/15/ | Hospital | [facility] | Justen Ribera | | | 2008 | Encounter | MED CTR XRAY [address] | F, [address] | | | | | [place] | [place], [place] | | | | | [place] [address] | [address] | | | | | [phone] | [phone] | | | | | | | [...] [place] | | | | | | [address] | | | | | | | | +--------+---------+ + + + documented as of this encounter Visit Diagnoses Not on filedocumented in this encounter"
--- OUTSIDE RECORDS SUMMARY | ~2019-07-17 | XMS | Encounter Summary ---
Demographics + + + | Address | [address] | | | [place] [address] | + + + | Home Phone | | + + + | Preferred Language | Unknown | + + + | Marital Status | | + + + | Worship Affiliation | Unknown | + + + | Race | Unknown | + + + | Ethnic Group | Unknown | + + + Author + + + | Author | [facility] | | | and [place] | + + + | Organization | [facility] | | | and [place] | + + + | Address | Unknown | + + + | Phone | Unavailable | + + + Support + + + + + | Name | Relationship | Address | Phone | + + + + + | Veronica Anderson | ECON | [place] | | | | | [address] | | + + + + + | Beatrice Paulson | ECON | [address] | | | | | [place] | | | | | [address] | | + + + + + Care Team Providers + +------+ + | Care Warehouse Packer Name | Role | Phone | + +------+ + | Venkata Pettit MD | PCP | | + +------+ + Encounter Details +--------+ + + + + | Date | Type | Department | Care Team | Description | +--------+ + + + + | 02/13/ | Hospital | [facility] | Wilton Smith, | Status post lumbar | | 2013 | Encounter | MED CTR XRAY [address] | DO [address] | spinal fusion | | | | [place] | [address] [place], [place] | | | | | [place] [address] | [phone] | | | | | [phone] | | | +--------+ + + + [...] Cardiology | Elvin Jmail | | | 2020 | Visit | | MD [address] | | | | | | [facility] | | | | | | [place] | | | | | | [address] | | | | | | | [...] At | + + + | [facility] Diagnostic Imaging | [place] | | Department [address] [facility] [place] | [facility] | | [ rep ct street[address]] [ rep ct [facility] | | st zip] Signed | - IMAGING | | | | | Patient Name: MARIA GKASSIE Alarcon Physician: | | | SYL. : 1940 Age: 72 Sex: F Unit #: [id number] | | | Exam Date: 02/13/13 [place] [facility] [place] | | Report #: [id number] Page: | | | %(RAD)RES..mtdd.print.filter("pg") of %(RAD) | | | RES..mtdd.print.filter("tpg") | | | | | | Accession Number: [id number] | | | LUMBAR SPINE, 02/13/2013 CLINICAL [...] Transcribed Date/Time: | | | 02/13/2013 10:47 Loan Clerk: | | | <<Signature on File>> | | | | | | Michael Lopez MD02/13/13 1442 <Electronically signed by | | | Michael Lopez MD> Michael Lopez MD 02/13/13 | | | 1025 Loan Clerk: Streyner Nqlldpmqwqpeb21/03/14 1047 | | | Wilton Smith DO | | + + + + + + + + | Performing | Address | City/State/Zipcode | Phone Number | | Organization | | | | + + + + + | [facility] | [address] | [place] | [phone] | | [facility] | | [address] | | | - IMAGING | | | | + + + + + documented in this encounter Visit Diagnoses + + | Diagnosis | + + | Status post lumbar spinal fusion Arthrodesis status | + + documented in this encounter
--- OUTSIDE RECORDS SUMMARY | ~2019-07-17 | XMS | Encounter Summary ---
Demographics + + + | Address | [address] | | | [place] [address] | + + + | Home Phone | | + + + | Preferred Language | Unknown | + + + | Marital Status | | + + + | Gnosticism Affiliation | Unknown | + + + [...] [place] | | | | | [address] | | + + + + + | Beatrice Paulson | ECON | [address] | | | | | [place] | | | | | [address] | | + + + + + Care Team Providers + +------+ + | Care Associate Java Developer Name | Role | Phone | [...] + + | 03/04/ | Telephone | [facility] | Elvin Jamil | Device Check | | 2019 | | CARDIOLOGY DECORAH | MD [address] | | | | | [address] | [facility] | | | | | [place], [place] | [place], [place] | | | | | [address] | [id number] | | | | | [phone] | | | +--------+ + + + [...] [place] | | | | | | [address] | | | | | | | | +--------+---------+ + + + documented as of this encounter Visit Diagnoses Not on filedocumented in this encounter"
--- OUTSIDE RECORDS SUMMARY | ~2019-07-17 | XMS | Encounter Summary ---
Demographics + + + | Address | [address] | | | [place] [address] | + + + | Home Phone [...] [place] | | | | | [address] | | + + + + + | Beatrice Paulson | ECON | [address] | | | | | [place] | | | | | [address] | | + + + + + Care Team Providers + +------+ + | Care Plastic Duplicator Name | Role | Phone | + +------+ + | Venkata Pettit MD | PCP | | + +------+ + Reason for Visit +---------+ + | Reason | Comments | +---------+ + | Results | | +---------+ + Encounter Details +--------+ + + + + | Date | Type | Department | Care Team | Description | +--------+ + + + + | 02/22/ | Telephone | [facility] | Wilton Smith, | Results | | 2015 | | NEUROSURGERY [address] | DO [address] | | | | | [facility] | [address] [place], [place] | | | | | [place], [place] | [id number] | | | | | [address] | | | | | | [phone] | | | +--------+ + + + [...] [place] | | | | | | [address] | | | | | | | | +--------+---------+ + + + documented as of this encounter Visit Diagnoses Not on filedocumented in this encounter"
--- OUTSIDE RECORDS SUMMARY | ~2019-07-17 | XMS | Encounter Summary ---
Demographics + + + | Address | [address] | | | [place] [address] | + + + | Home Phone [...] [place] | | | | | [address] | | + + + + + | Beatrice Paulson | ECON | [address] | | | | | [place] | | | | | [address] | | + + + + + Care Team Providers + +------+ + | Care Superintendent Plant Protection Name | Role | Phone | + +------+ + | Parvez Vail MD | PCP | | + +------+ + Reason for Visit +--------+ + | Reason | Comments | +--------+ + | Other | Talked to patient about walk in EKG. | +--------+ + Encounter Details +--------+ + + + + | Date | Type | Department | Care Team | Description | +--------+ + + + + | 12/26/ | Telephone | [facility] | Destini Espinoza | Other (Talked to | | 2018 | | CARDIOLOGY [place] Rubin, Heavy Machinery Operator | patient about walk | | | | [address] | | in EKG. ) | | | | [place] | | | | | | [address] | | | | | | [phone] | | | +--------+ + + + [...] [place] | | | | | | [address] | | | | | | | | +--------+---------+ + + + documented as of this encounter Visit Diagnoses Not on filedocumented in this encounter"
--- OUTSIDE RECORDS SUMMARY | ~2019-07-17 | XMS | Encounter Summary ---
Demographics + + + | Address | [address] | | | [place] [address] | + + + | Home Phone [...] [place] | | | | | [address] | | + + + + + | Beatrice Paulson | ECON | [address] | | | | | [place] | | | | | [address] | | + + + + + Care Team Providers + +------+ + | Care Director Enterprise Sales Name | Role | Phone | + [...] | | | | [place], | [address] Phone: | | | | | | [place] [address] | [phone] | | | | | | Phone: | Fax: | | | | | | [phone] | [phone] | | | | | | Fax: | | | | | | | [phone] | | +--------+ + + + + + Reason for Visit +--------+ + | Reason | Comments | +--------+ + | Pain | | +--------+ + Encounter Details +--------+ + + + + | Date | Type | Department | Care Team | Description | +--------+ + + + + | 06/12/ | Telephone | [facility] | [place] Smith, | Pain | | 2016 | | NEUROSURGERY [address] | DO [address] | | | | | [facility] | [address] [place], [place] | | | | | [place], [place] | [id number] | | | | | [address] | | | | | | [phone] | | | +--------+ + + + [...] | | | | | | [facility] | | | | | | [place] | | | | | | [address] | | | | | | | [...]
--- OUTSIDE RECORDS SUMMARY | ~2019-07-17 | XMS | Encounter Summary ---
Demographics + + + | Address | [address] | | | [place] [address] | + + + | Home Phone [...] [place] | | | | | [address] | | + + + + + | Beatrice Paulson | ECON | [address] | | | | | [place] | | | | | [address] | | + + + + + Care Team Providers + +------+ + | Care Mattress And Boxsprings Supervisor Name | Role | Phone | + +------+ + | Parvez Vail MD | PCP | | + +------+ + Encounter Details +--------+ + + + + | Date | Type | Department | Care Team | Description | +--------+ + + + + | 05/07/ | Hospital | [facility] | Olayinka Rothman | Cervical | | 2019 | Encounter | MED CTR XRAY [address] | T, [address] | radiculopathy | | | | [place] | [place] | | | | | [place] [address] | [address] | | | | | [phone] | | | | | | | Loss Prevention Associate, [facility] | | | | | | [...] [place] | | | | | | [address] | | | | | | | [...] 5:30 | | | | | ONCE, [facility] 05/07/18 at 1715, For 1 | [...] | | | | | Other, ONCE, [facility] 05/07/18 at 1715, | | PM [...]
--- OUTSIDE RECORDS SUMMARY | ~2019-07-17 | XMS | Encounter Summary ---
Demographics + + + | Address | [address] | | | [place] [address] | + + + | Home Phone | | + + + | Preferred Language | Unknown | + + + | Marital Status | | + + + | Sabianist Affiliation | Unknown | + + + | Race | Unknown | + + + | Ethnic Group | Unknown | + + + Author + + + | Author | [facility] | | | and [place] | + + + | Organization | [facility] | | | and [place] | + + + | Address | Unknown | + + + | Phone | Unavailable | + + + Support + + + + + | Name | Relationship | Address | Phone | + + + + + | Veronica Anderson | ECON | [place] | | | | | [address] | | + + + + + | Beatrice Paulson | ECON | [address] | | | | | [place] | | | | | [address] | | + + + + + Care Team Providers + +------+ + | Care Saw Feeder Name | Role | Phone | + [...] | | | | | | sm ([facility]) | | | | | | | [...] + + | 03/31/ | Surgery | [facility] | Elvin Jamil | BLAYNE EP ABLATION AF | | 2019 | | [facility] | MD [address] | | | | | LAB [address] | [facility] | | | | | [place], [place] | [place], [place] | | | | | [address] | [address] | | | | | [phone] | | | +--------+---------+ + + + [...] - OK to shower with dressings in [facility] ce the day you get home. Avoid [...] follow gravity, so it s common for mtfsn-mxq-jhox quezada to move down the l eg. [...] documented as of this encounter Progress Notes Rivak Brand RN - 04/01/2019 11:27 AM PSTPatient [...] cardiovers ion performed in December 2018 with catholic of sinus rhythm. She did note an improveme nt in her symptoms with catholic of sinus [...] novel oral anticoagulants are expensive under her [facility] plan. Her echocardiogram performed in August [...] with the findings and plan of the critical access hospital practice provider/house staff with further assessment [...] [address] | | | | | | [facility] | | | | | | [place] | | | | | | [address] | | | | | | | [...] | | | Clotting | performed at [facility];888 | seconds | LABORATORY | | | Time, POC | Fatimah Baptiste;[place] | | | | | | [address] | | | | + + + + + + + + | Specimen | + + | | + + + + + + + | Performing | Address | City/State/Zipcode | Phone Number | | Organization | | | | + + + + + | [facility] | [address] | [place] [address] | [phone] | + + + + + Activated [...] | | | Clotting | performed at [facility];888 | seconds | LABORATORY | | | Time, POC | Fatimah Baptiste;[place] | | | | | | [address] | | | | + + + + + + + + | Specimen | + + | | + + + + + + + | Performing | Address | City/State/Zipcode | Phone Number | | Organization | | | | + + + + + | [facility] | [address] | [place] [address] | [phone] | + + + + + Activated [...] | | | Clotting | performed at [facility];888 | seconds | LABORATORY | | | Time, POC | Fatimah Baptiste;[place], [place] | | | | | | [address] | | | | + + + + + + + + | Specimen | + + | | + + + + + + + | Performing | Address | City/State/Zipcode | Phone Number | | Organization | | | | + + + + + | [facility] | [address] | [place] [address] | [phone] | + + + + + Protime INR (03/31/2019 7:11 AM PST) + + + + + + | Component | Value | Ref Range | Performed | Pathologist | | | | | At | Signature | + + + + + + | INR | 2.9Comment: REFERENCE | | [facility] | | | | RANGE:0.9 - [...] | | | | | performed at [facility];888 | | | | | | Fatimah Baptiste;[place] | | | | | | [address] | | | | + + + + + + + + | Specimen | + + | Blood | + + + + + + + | Performing | Address | City/State/Zipcode | Phone Number | | Organization | | | | + + + + + | [facility] | [address] | [place] [address] | [phone] | + + + + + CBC [...] | | | Absolute | performed at [facility];888 | K/uL | LABORATORY | | | | [facility];[place], [place] | | | | | | [address] | | | | + + + + + + + + | Specimen | + + | Blood | + + + + + + + | Performing | Address | City/State/Zipcode | Phone Number | | Organization | | | | + + + + + | [facility] | [address] | [place] [address] | [phone] | + + + + + Basic [...] | >60Comment: GFR <60: | >60 | [facility] | | | GFR | CHRONIC [...] | | | | | | MDRD IDTX traceable | | | | | | equation.Testing | | | | | | performed at [facility] | | | | | | [facility];[place], [place] | | | | | | [address] | | | | + + + + + + + + | Specimen | + + | Blood | + + + + + + + | Performing | Address | City/State/Zipcode | Phone Number | | Organization | | | | + + + + + | [facility] | [address] | [place] [address] | [phone] | + + + + + CV [...] | | | | | | longer, jaykou-tph-xuxhu use of | | | | | [...] | | | | | | | mpocll-fmq-edxns use of at least | | | [...]
--- OUTSIDE RECORDS SUMMARY | ~2019-07-17 | XMS | Encounter Summary ---
Demographics + + + | Address | [address] | | | [place] [address] | + + + | Home Phone [...] [place] | | | | | [address] | | + + + + + | Beatrice Paulson | ECON | [address] | | | | | [place] | | | | | [address] | | + + + + + Care Team Providers + +------+ + | Care Visitor Services Information Assistant Name | Role | Phone | [...] + + | 12/26/ | Telephone | [facility] | Destini Espnioza | Other (Talked to | | 2018 | | CARDIOLOGY [place] Rubin, Crusher Supervisor | patient about walk | | | | [address] | | in EKG. ) | | | | [place] | | | | | | [address] | | | | | | [phone] | | | +--------+ + + + [...] [place] | | | | | | [address] | | | | | | | | +--------+---------+ + + + documented as of this encounter Visit Diagnoses Not on filedocumented in this encounter"
--- OUTSIDE RECORDS SUMMARY | ~2019-07-17 | XMS | Encounter Summary ---
Demographics + + + | Address | [address] | | | [place] [address] | + + + | Home Phone [...] [place] | | | | | [address] | | + + + + + | Beatrice Paulson | ECON | [address] | | | | | [place] | | | | | [address] | | + + + + + Care Team Providers + +------+ + | Care Engine Maintenance Mechanic Name | Role | Phone | + +------+ + PCP | Unavailable | + +------+ + Encounter Details +--------+ + + + + | Date | Type | Department | Care Team | Description | +--------+ + + + + | 10/10/ | Hospital | [facility] | Justen Ribera | | | 2009 - | Encounter | MED CTR GENERIC IP | F, [address] | | | | | CONV DEPT [address] | [address] [place], [place] | | | 10/11/ | | [place], | [address] | | | 2009 | | [place] [address] | [phone] | | | | | [phone] | | | +--------+ + + + [...] [place] | | | | | | [address] | | | | | | | | +--------+---------+ + + + documented as of this encounter Visit Diagnoses Not on filedocumented in this encounter"
--- OUTSIDE RECORDS SUMMARY | ~2019-07-17 | XMS | Encounter Summary ---
Demographics + + + | Address | [address] | | | [place] [address] | + + + | Home Phone [...] [place] | | | | | [address] | | + + + + + | Beatrice Paulson | ECON | [address] | | | | | [place] | | | | | [address] | | + + + + + Care Team Providers + +------+ + | Care Pantograph Engraver Name | Role | Phone | + +------+ + | Venkata Pettit MD | PCP | | + +------+ + Encounter Details +--------+ + + + + | Date | Type | Department | Care Team | Description | +--------+ + + + + | 01/20/ | Hospital | [facility] | Wil[place] Smith, | Status post lumbar | | 2015 | Encounter | MED CTR XRAY [address] | DO [address] | spinal fusion; Back | | | | [place] | [address] [place], [place] | pain, unspecified | | | | [place] [address] | [id number] | back pain | | | | [phone] | | laterality, | | | | [...] | | | | | | [facility] | | | | | | [place] | | | | | | [address] | | | | | | | [...] history of lumbar fusion COMPARISON: Lumbar | [facility] | | spine radiographs dating to February 13, 2013. FINDINGS:4 views of | [facility] | | the lumbar spine. Posterior and [...] [address] | [place] | [phone] | | [facility] | | [address] | | | - IMAGING | | | | + + + + + documented in this encounter Visit Diagnoses + + | Diagnosis | + + | Status post lumbar spinal fusion Arthrodesis status | + + | Back pain, unspecified back pain laterality, unspecified location | + + documented in this encounter"
--- OUTSIDE RECORDS SUMMARY | ~2019-07-17 | XMS | Encounter Summary ---
Demographics + + + | Address | [address] | | | [place] [address] | + + + | Home Phone | | + + + | Preferred Language | Unknown | + + + | Marital Status | | + + + | Jainism Affiliation | Unknown | + + + | Race | Unknown | + + + | Ethnic Group | Unknown | + + + Author + + + | Author | [facility] | | | and [place] | + + + | Organization | [facility] | | | and [place] | + + + | Address | Unknown | + + + | Phone | Unavailable | + + + Support + + + + + | Name | Relationship | Address | Phone | + + + + + | Veronica Anderson | ECON | [place] | | | | | [address] | | + + + + + | Beatrice Paulson | ECON | [address] | | | | | [place] | | | | | [address] | | + + + + + Care Team Providers + +------+ + | Care Awning Spreader Name | Role | Phone | + [...] | | | | . | | [place] [address] | | | | | | | Phone: | | | | | | | [phone] | | | | | | | Fax: | | | | | | | [phone] | +--------+--------+ + + + + Encounter Details +--------+ + + + + | Date | Type | Department | Care Team | Description | +--------+ + + + + | 02/20/ | Hospital | [facility] | Loulou Elvin | Persistent atrial | | 2020 | Encounter | CENTER CV INTRA OP | MD [address] | fibrillation (HCC) | | | | [address] | [employer] | | | | | [facility] [place] | [place] | | | | | [address] | [address] | | | | | [phone] | | | +--------+ + + + [...] 9:31 AM PSTDischarge instructions went over with rpudence mcpherson and friend all questions answered no [...] [place] | | | | | | [id number] | | | | | | | [...] | | | | | performed at [facility];888 | | | | | | [address]imah Bapt[address];[place] | | | | | | [address] | | | | + + + + + + + + | Specimen | + + | Blood | + + + + + + + | Performing | Address | City/State/Zipcode | Phone Number | | Organization | | | | + + + + + | [facility] | [address] | [place] [address] | [phone] | + + + + + CBC [...] | | | Absolute | performed at [facility];[address] | K/uL | LABORATORY | | | | [place], [place] | | | | | | [address] | | | | + + + + + + + + | Specimen | + + | Blood | + + + + + + + | Performing | Address | City/State/Zipcode | Phone Number | | Organization | | | | + + + + + | [facility] | [address] | [place] [address] | [phone] | + + + + + Basic [...] | | | | | performed at [facility];88 | | | | | | [facility];[place], [place] | | | | | | [address] | | | | + + + + + + + + | Specimen | + + | Blood | + + + + + + + | Performing | Address | City/State/Zipcode | Phone Number | | Organization | | | | + + + + + | [facility] | [address] | [place] [address] | [phone] | + + + + + ECG [...]
--- OUTSIDE RECORDS SUMMARY | ~2019-07-17 | XMS | Encounter Summary ---
Demographics + + + | Address | [address] | | | [place] [address] | + + + | Home Phone [...] [place] | | | | | [address] | | + + + + + | Beatrice Paulson | ECON | [address] | | | | | [place] | | | | | [address] | | + + + + + Care Team Providers + +------+ + | Care Team Leader/Research Psychologist Name | Role | Phone | + +------+ + | Venkata Pettit MD | PCP | | + +------+ + Encounter Details +--------+ + + + + | Date | Type | Department | Care Team | Description | +--------+ + + + + | 01/15/ | Hospital | [facility] | DixieVenkata jacinto | | | 2013 - | Encounter | MED CTR IRF [address] | MD [address] | | | | | [place], | [place] | | | 01/27/ | | [place] [address] | [place] [address] | | | 2012 | | [phone] | [phone] | | | | | | | [...] Venkata Colin MD - 01/27/2013 11:37 [place] [address] Patient Name: CUMMINSKASSIE Provider: Alphonse Colin MD Unit #: [id number] Location : [address] [place], [place] [address]t #: [id number] : 1940 ADMISSION DATE: 01/15/2013 DISCHARGE DATE: 01/27/2013 DISCHARGE DIAGNOSES 1. LUMBAR STENOSIS, STATUS POST DECOMPRESSION AND FUSION, WITH RIGHT GREATER THAN LEFT LEG WEAKNESS. 2. XSUFS-MM-NVPVMBC PAIN SYNDROME. 3. IDIOPATHIC PERIPHERAL NEUROPATHY. 4. [...] bed. Thus , she was [facility] for further loraine abilitation, since she lives alone in [place] and could not be discharged home safely. [...] morphine and had her only on p.o. [place] by discharge, and so will continue th e Neurontin after discharge, and the [place]. Her main problem at rehab was initially [...] 7. Tylenol 650 mg q.4h. p.r.n. 8. [place] 10/325, 1 to 2 tablets q.4h. p.r.n. [...] Alphonse Colin MD, PHD Physiatry JOB #: [id number] EXT JOB #:[id number] cc: Alphonse Pettit MD <<Signature on File>> Alphonse Colin MD01/30/13 0910 < documented in this [...] | | | | | Lizzie Garcia, [facility] | | | | | | [place] | | | | | | [address] | | | | | | | [...] 9 | 7 - 18 mg/dL | [facility] | | | | | | [facility] | | | | | | [facility]ICAL | | | | | | [facility] - | | | | | | LABORATORY | | + + + + + + | Creatinine | 0.44 (L) | 0.60 - 1.30 | [facility] | | | | | mg/dL | [...] + | [facility] [facility] | [address] | [place], [place] | [phone] | | [facility] | | [address] | | | - LABORATORY | | | | + + + + + | [facility] | [address] | [place], [place] | | | [facility] | | [address] | | | - LABORATORY | | | | + + + + + XR Abdomen AP (01/16/2013 8:59 AM PST) + + | Specimen | + + | | + + + + + | Narrative | Performed At | + + + | [facility] | [facility] [address] | | Department [address] [facility] [place] | [facility] | | [ rep ct street1+2] [ rep ct [facility] | | st zip] Signed | - IMAGING | | | | | Patient Name: KASSIE CUMMINS Physician: | | | JIM.01 : 1940 Age: 72 Sex: F Unit #: [id number] | | | Exam Date: 01/16/13 Location: [address] [place] [address] | | | Report #: [id number] Page: | | | %(RAD)RES..mtdd.print.filter("pg") of %(RAD) | | | RES..mtdd.print.filter("tpg") | | | | | | Accession Number: [id number] | | | ABDOMEN ONE VIEW X-RAY [...] Transcribed Date/Time: | | | 01/16/2013 09:03 Fire Lieutenant Marine: | | | <<Signature on File>> | | | Charly | | | Saeed Vale MD01/16/13 0924 <Electronically signed by Charly Tipton | | | Akanksha [place]> Charly Vale MD 01/16/13 0859 | | | Fire Lieutenant Marine: [facility] Mostjtcsvpqci27/06/13 0903 | | | | | + + + + + + + + | Performing | Address | City/State/Zipcode | Phone Number | | Organization | | | | + + + + + | [facility] | [address] | [place] | [phone] | | [facility] | | [address] | | | - IMAGING | | [...] + | [facility] | [address] | [place], [place] | [phone] | | [facility] | | [address] | | | - LABORATORY | | | | + + + + + | [facility] | [address] | [place], [place] | | | [facility] | | [address], [facility] | | | - LABORATORY [...] + | [facility] | [address] | [place] | [phone] | | [facility] | | [address] | | | - LABORATORY | | | | + + + + + | [facility] | [address] | [place], [place] | | | [facility] | | [address] | | | - LABORATORY | | [...] [address] | [place] | [phone] | | [facility] | | [address] | | | - LABORATORY | | | | + + + + + | [facility] | [address] | [place] | | | [facility] | | [address] | | | - LABORATORY | | [...] - 1.030 | [facility] | | | [place], | | | [facility] | | [...] + | [facility] | [address] | [place], [place] | [phone] | | [facility] | | [address] | | | - LABORATORY | | | | + + + + + | [facility] | [address] | [place], [place] | | | [facility] | | [address] [place] [address] | | | - LABORATORY | | | | + + + + + documented in this encounter Visit Diagnoses Not on filedocumented in this encounter
--- OUTSIDE RECORDS SUMMARY | ~2019-07-17 | XMS | Encounter Summary ---
Demographics + + + | Address | [address] | | | [place] [address] | + + + | Home Phone | | + + + | Preferred Language | Unknown | + + + | Marital Status | | + + + | Alevism Affiliation | Unknown | + + + | Race | Unknown | + + + | Ethnic Group | Unknown | + + + Author + + + | Author | [facility] | | | and [place] | + + + | Organization | [facility] | | | and [place] | + + + | Address | Unknown | + + + | Phone | Unavailable | + + + Support + + + + + | Name | Relationship | Address | Phone | + + + + + | Veronica Anderson | ECON | [place] | | | | | [address] | | + + + + + | Beatrice Paulson | ECON | [address] | | | | | [place] | | | | | [address] | | + + + + + Care Team Providers + +------+ + | Care Punch Hand Name | Role | Phone | [...] + + | 03/26/ | Telephone | [facility] | Elvin Jamil | Procedure (Procedure | | 2020 | | [facility] | MD [address] | Questions ) | | | | [address] | [facility] | | | | | [place], [place] | [place], [place] | | | | | [address] | [address] | | | | | [phone] | | | +--------+ + + + [...] [place] | | | | | | [address] | | | | | | | | +--------+---------+ + + + documented as of this encounter Visit Diagnoses Not on filedocumented in this encounter"
--- OUTSIDE RECORDS SUMMARY | ~2019-07-17 | XMS | Encounter Summary ---
Demographics + + + | Address | [address] | | | [place] [address] | + + + | Home Phone [...] [place] | | | | | [address] | | + + + + + | Beatrice Paulson | ECON | [address] | | | | | [place] | | | | | [address] | | + + + + + Care Team Providers + +------+ + | Care Materials Tech Name | Role | Phone | [...] | | | | fibrillation | | [place], [place] | | | | | (HCC) | | [address] Phone: | | | | | Procedures | | [phone] | | | | | CO CATH PLMT | | Fax: | | | | | L HRT & | | [phone] | | | | | ARTS W/NJX & | | | | | | | ANGIO IMG | | | | | | | S&I | | | +--------+--------+ + + + + Encounter Details +--------+ + + + + | Date | Type | Department | Care Team | Description | +--------+ + + + + | 12/22/ | Anesthesia | [facility] | Samy Mccartyuel, | | | 2019 | Event | CENTER CV INTRA OP | [address] | | | | | [address] | [place] [address] | | | | | [place], [place] | Carlos Salinas, | | | | | [address] | PROFESSIONAL PROGRAMMER ANALYST [address] | | | | | [phone] | [place] [address] | | | | | | [phone] | | | | | | | [...] 1330 by | | eral | Antecubital; [id number] | Kandi Alas, | Gaby Junior RN [...] Gaby Junior RN | | IV | [id number] catheter system; | RN | | | [...] [place] | | | | | | [address] | | | | | | | [...]
--- OUTSIDE RECORDS SUMMARY | ~2019-07-17 | XMS | Encounter Summary ---
Demographics + + + | Address | [address] | | | [place] [address] | + + + | Home Phone | | + + + | Preferred Language | Unknown | + + + | Marital Status | | + + + | Hindu Affiliation | Unknown | + + + | Race | Unknown | + + + | Ethnic Group | Unknown | + + + Author + + + | Author | [facility] | | | and [place] | + + + | Organization | [facility] | | | and [place] | + + + | Address | Unknown | + + + | Phone | Unavailable | + + + Support + + + + + | Name | Relationship | Address | Phone | + + + + + | Veronica Anderson | ECON | [place] | | | | | [address] | | + + + + + | Beatrice Paulson | ECON | [address] | | | | | [place] | | | | | [address] | | + + + + + Care Team Providers + +------+ + | Care Frontend Engineer Name | Role | Phone | + +------+ + | Parvez Vail MD | PCP | | + +------+ + Encounter Details +--------+ + + + + | Date | Type | Department | Care Team | Description | +--------+ + + + + | 11/06/ | Abstract | [facility] | AlexisAnniaDestini | | | 2018 | | CARDIOLOGY [place] Rubin Ui Programmer | | | | | [address] | | | | | | [address] | | | | | | [place] | | | | | | [address] | | | | | | [phone] | | | +--------+ + + + [...] 1100 | | | | | | [facility] | | | | | | [place] | | | | | | [address] | | | | | | | | +--------+---------+ + + + documented as of this encounter Visit Diagnoses Not on filedocumented in this encounter"
--- OUTSIDE RECORDS SUMMARY | ~2019-07-17 | XMS | Encounter Summary ---
Demographics + + + | Address | [address] | | | [place] [address] | + + + | Home Phone [...] [place] | | | | | [address] | | + + + + + | Beatrice Paulson | ECON | [address] | | | | | [place] | | | | | [address] | | + + + + + Care Team Providers + +------+ + | Care Asphalt Roller Person Name | Role | Phone | + [...] Description | +--------+---------+ + + + | 04/26/ | Office | [facility] | Pranav Villar, [place] | Pseudoaneurysm | | 2020 | Visit | VASCULAR SURGERY | [address] | following procedure | | | | [address] | [place] | ([facility]) (Primary Dx); | | | | [place] | [address] | Groin hematoma, | | | | [address] | | subsequent encounter | | | | [phone] | | | +--------+---------+ + + + [...] +---------+ + + | Blood Pressure | 147/70 | 04/27/2019 10:07 AM | | | | | PDT | | + +---------+ + + | Pulse | 68 | 04/27/2019 10:07 AM | | | | | PDT | | + +---------+ + + | Temperature | - | - | | + +---------+ + + | Respiratory Rate | - | - | | + +---------+ + + | Oxygen Saturation | 100% | 04/27/2019 10:07 AM | | | | | PDT [...] +---------+ + + documented in this encounter Progress Notes Pranav Villar DNP - 04/27/2019 9:30 AM [facility] [address] [place] [address] DATE OF VISIT: 04/27/2019 PATIENT NAME: Kassie Bear : 1940; AGE: 78 y.o.; Sex:F PHONE NUMBER: ; ; PROVIDER: Pranav Villar DNP PRIMARY CARE / REFERRING PHYSICIAN: No ref. provider found / Parvez Vail MD / [address] / [place] [address] REASON FOR EVALUATION / CHIEF COMPLAINT: Vascular [...] pus, increasing pain, increasing swelling. She has been staying at s wing bed in [facility] and has wound vac dressing change twice a week on Saturday an d . Her wound is getting smaller based on photos. She is taking coumadin and statin daily. VITAL SIGNS: BP 147/70 | Pulse 68 | SpO2 100% PHYSICAL EXAM: Constitutional: Well nourished, no signs of distress Cardiovascular: Normal rate, regular rhythm. Pulmonary/Chest: No respiratory distress. No adventitious sounds. Abdominal: Soft. No abdominal distension or tenderness. Musculoskeletal: Normal range of motion. Extremities: No edema, cyanosis or clubbing. Neurological: She is alert and oriented. VASCULAR: Palpable femoralpulses were present bilaterally. Wound vac in left groin, no si gns of infection noted. IMAGING: Vas Lwr Ext Art Lt W Machelle Multi Lvl Result Date: 04/27/2019 VASCULAR LOWER EXTREMITY ARTERIAL LEFT W MACHELLE MULTI LEVEL CLINICAL INFORMATION: Status post left angio on 04/04 COMPARISON: CT ANGIOGRAM LOWER EXTREMITY LEFT W CONTRAST (04/03/2019); VAS LOWER EXTREMITY ARTERIES LEFT (04/03/2019); LOWER EXTREMITY ANY JOINT (03/04/2009); PROCEDURE : Dorsalis pedis and posterior tibial arteries used for MACHELLE calculation. Ankle-brachial kike marlena, segmental pressures, doppler waveforms and pulse volume waveforms were obtained bilater ally. FINDINGS: Vessel, peak systolic velocity, waveform analysis: Left lower extremity: FAMILY LAW LEGAL ASSISTANT prox: 196, triphasic DFA prox: 141, triphasic SFA prox: 152, triphasic SFA Mid: 99, triphas ic SFA dist: 96, triphasic Pop mid: 114, triphasic CARLOS prox: 106, triphasic CARLOS dist: 97, tr iphasic MENTALLY IMPAIRED TEACHER prox: 101, triphasic MENTALLY IMPAIRED TEACHER dist: 53, triphasic Peroneal prox: 23, triphasic Perone al dist: 27, triphasic Right brachial systolic blood pressure: 137 mmHg Left brachial systol ic blood pressure: 132 mmHg Right posterior tibial: 171, MACHELLE 1.25 Right dorsalis pedis: 154, MACHELLE 1.12 Right great toe: 94, TBI 0.69 Triphasic right ankle waveforms, with preserved digi tristan waveform. Left posterior tibial: 168, MACHELLE 1.23 Left dorsalis pedis: 156, MACHELLE 1.14 Left g reat toe: 90, TBI 0.66 Preserved triphasic ankle waveforms, with blunted digital waveform. 1. No hemodynamically significant stenosis of the left lower extremity arterial tree. 2. Tr iphasic waveforms throughout. 3. Three-vessel runoff. 4. Avascular anechoic hematoma versus seroma in the proximal thigh adjacent to the wound VAC measuring 8.6 x 2.5 cm. 1. Triphasic waveforms at all ankle sites. 2. ABIs and TBIs within normal limits. Criteria 0.97 to 1.25 N o significant PAD 0.75 to 0.96 Mild 0.50 to 0.74 Moderate <0.50 Severe <0.30 Critical (Nonin vasive Vascular Diagnosis, [employer]onna [employer], 2002, [place] Signed by: Na Blanco S hawn Sign Date/Time: 04/27/2019 10:41 AM Assessment & Plan: Left groin pseudoaneurysm s/p repair and wound vac placement - The patient is doing well. C ontinue wound vac dressing change twice a week, may change to wet to dry dressing change if wound becomes too superficial for wound vac placement. Monitor for signs of infection. Ultra sound reviewed with patient. I've explained to the patient that in the event she experiences acute limb ischemia as evidenced by severe pain or coldness or new lower leg wounds, the pa tient should contact me immediately to return to my clinic or go to nearby emergency room ri ght away. Return to vascular clinic in 1 month for wound check. Pranav Villar DNP documented in this encounte r Plan of Treatment +--------+---------+ + + + | Date | Type | Specialty | Care Team | Description | +--------+---------+ + + + | 10/06/ | Office | Cardiology | Elvin Jamil | | | 2020 | Visit | | MD [address] | | | | | | [facility] | | | | | | [place] | | | | | | [address] | | | | | | | | +--------+---------+ + + + documented as of this encounter Visit Diagnoses + + | Diagnosis | + + | Pseudoaneurysm following procedure (HCC) - Primary Vascular complications of other | | vessels | + + | Groin hematoma, subsequent encounter | + + documented in this encounter"
--- OUTSIDE RECORDS SUMMARY | ~2019-07-17 | XMS | Encounter Summary ---
Demographics + + + | Address | [address] | | | [place] [address] | + + + | Home Phone | | + + + | Preferred Language | Unknown | + + + | Marital Status | | + + + | Mu-Ism Affiliation | Unknown | + + + | Race | Unknown | + + + | Ethnic Group | Unknown | + + + Author + + + | Author | [facility] | | | and [place] | + + + | Organization | [facility] | | | and [place] | + + + | Address | Unknown | + + + | Phone | Unavailable | + + + Support + + + + + | Name | Relationship | Address | Phone | + + + + + | Veronica Anderson | ECON | [place] | | | | | [address] | | + + + + + | Beatrice Paulson | ECON | [address] | | | | | [place] | | | | | [address] | | + + + + + Care Team Providers + +------+ + | Care Hiv Cts Specialist Name | Role | Phone | + +------+ + PCP | Unavailable | + +------+ + Encounter Details +--------+ + + + + | Date | Type | Department | Care Team | Description | +--------+ + + + + | 10/10/ | Hospital | [facility] | Justen Ribera | | | 2009 - | Encounter | MED CTR GENERIC IP | F, [address] | | | | | CONV DEPT [address] [place], [place] | | | 10/11/ | | [place], | [address] | | | 2009 | | [place] [address] | [phone] | | | | | [phone] | | | +--------+ + + + [...] [place] | | | | | | [address] | | | | | | | | +--------+---------+ + + + documented as of this encounter Visit Diagnoses Not on filedocumented in this encounter"
--- OUTSIDE RECORDS SUMMARY | ~2019-07-17 | XMS | Encounter Summary ---
Demographics + + + | Address | [address] | | | [place] [address] | + + + | Home Phone [...] [place] | | | | | [address] | | + + + + + | Beatrice Paulson | ECON | [address] | | | | | [place] | | | | | [address] | | + + + + + Care Team Providers + +------+ + | Care Fiber Locking Supervisor Name | Role | Phone | [...] + + | 12/31/ | Office | [facility] | Felipe Hernandez, | Lumbar spine | | 2012 | Visit | NEUROSURGERY [address] | PA-C [address] | instability (Primary | | | | [address] | [place], [place] | Dx); | | | | [place], [place] | [address] | Spondylolisthesis of | | | | [address] | | lumbar region; DDD | | | | [phone] | | (degenerative disc | | | [...] 10:10 AM PST Felipe Hernandez PA-C [address] [facility], [address] [place] [address] FAX: NEUROSURGERY HISTORY AND PHYSICAL EXAMINATION CHIEF [...] has no apparent deficits with short or building drafting officer memory. CRANIAL NERVES: II: Acuity is intact. [...] Intrinsics 5 5 Ulnar Intrinsics 5 5 Scratch Brusher Strength 5 5 Hip Flexion 4 4 [...] | | | | | | [place], [place] | | | | | | [address] | | | | | | | [...]
--- OUTSIDE RECORDS SUMMARY | ~2019-07-17 | XMS | Encounter Summary ---
Demographics + + + | Address | [address] | | | [place] [address] | + + + | Home Phone [...] [place] | | | | | [address] | | + + + + + | Beatrice Paulson | ECON | [address] | | | | | [place] | | | | | [address] | | + + + + + Care Team Providers + +------+ + | Care Scrap Crane Operator Name | Role | Phone | [...] + + | 07/17/ | Office | [facility] | Felipe Hernandez, | Spondylolisthesis of | | 2013 | Visit | NEUROSURGERY [address] | PA-C [address] | lumbar region | | | | [address] | [place], [place] | (Primary Dx); S/P | | | | [place], [place] | [address] | lumbar fusion | | | | [address] | | | | | | [phone] | | | +--------+---------+ + + + [...] 10:51 AM PDT Felipe Hernandez PA-C [address] [facility], [address] [place] [address] FAX: NEUROSURGERY SURGICAL FOLLOW-UP CHIEF COMPLAINT: Chief [...] [place] | | | | | | [address] | | | | | | | | +--------+---------+ + + + documented as of this encounter Visit Diagnoses + + | Diagnosis | + + | Spondylolisthesis of lumbar region - Primary Acquired spondylolisthesis | + + | S/P lumbar fusion Arthrodesis status | + + documented in this encounter
--- OUTSIDE RECORDS SUMMARY | ~2019-07-17 | XMS | Encounter Summary ---
Demographics + + + | Address | [address] | | | [place] [address] | + + + | Home Phone [...] [place] | | | | | [address] | | + + + + + | Beatrice Paulson | ECON | [address] | | | | | [place] | | | | | [address] | | + + + + + Care Team Providers + +------+ + | Care Fuel Agent Name | Role | Phone | [...] + + | 01/19/ | Telephone | [facility] | Destini Espinoza | Other (Patient david. | | 2018 | | CARDIOLOGY FAUSTO Rubin, Nurse Examiner | ) | | | | [address] | | | | | | [place], [place] | | | | | | [address] | | | | | | [phone] | | | +--------+ + + + [...] [place] | | | | | | [address] | | | | | | | | +--------+---------+ + + + documented as of this encounter Visit Diagnoses Not on filedocumented in this encounter"
--- OUTSIDE RECORDS SUMMARY | ~2019-07-17 | XMS | Encounter Summary ---
Demographics + + + | Address | [address] | | | [place] [address] | + + + | Home Phone [...] [place] | | | | | [address] | | + + + + + | Beatrice Paulson | ECON | [address] | | | | | [place] | | | | | [address] | | + + + + + Care Team Providers + +------+ + | Care Services Advisor Name | Role | Phone | [...] + + | 12/25/ | Telephone | [facility] | Destini Espinoza | Other (Patient is | | 2019 | | CARDIOLOGY FAUSTO | Caryn, Property Management Specialist | not doing well | | | | [address] | | today. ) | | | | [place] | | | | | | [address] | | | | | | [phone] | | | +--------+ + + + [...] [place] | | | | | | [address] | | | | | | | | +--------+---------+ + + + documented as of this encounter Visit Diagnoses Not on filedocumented in this encounter"
--- OUTSIDE RECORDS SUMMARY | ~2019-07-17 | XMS | Encounter Summary ---
Demographics + + + | Address | [address] | | | [place] [address] | + + + | Home Phone | | + + + | Preferred Language | Unknown | + + + | Marital Status | | + + + | Nondenominational Affiliation | Unknown | + + + | Race | Unknown | + + + | Ethnic Group | Unknown | + + + Author + + + | Author | [facility] | | | and [place] | + + + | Organization | [facility] | | | and [place] | + + + | Address | Unknown | + + + | Phone | Unavailable | + + + Support + + + + + | Name | Relationship | Address | Phone | + + + + + | Veronica Anderson | ECON | [place] | | | | | [address] | | + + + + + | Beatrice Paulson | ECON | [address] | | | | | [place] | | | | | [address] | | + + + + + Care Team Providers + +------+ + | Care Clinical Research Specialist Name | Role | Phone | [...] + + | 06/29/ | Telephone | [facility] | Elvin Jamil | Screening For | | 2020 | | CARDIOLOGY [place] | MD [address] | Communicable Disease | | | | [address] | [facility] | | | | | [place], [place] | [place], [place] | | | | | [address] | [address] | | | | | [phone] | | | +--------+ + + + [...] [place] | | | | | | [address] | | | | | | | | +--------+---------+ + + + documented as of this encounter Visit Diagnoses Not on filedocumented in this encounter"
--- OUTSIDE RECORDS SUMMARY | ~2019-07-17 | XMS | Encounter Summary ---
Demographics + + + | Address | [address] | | | [place] [address] | + + + | Home Phone [...] [place] | | | | | [address] | | + + + + + | Beatrice Paulson | ECON | [address] | | | | | [place] | | | | | [address] | | + + + + + Care Team Providers + +------+ + | Care Sterile Technician Name | Role | Phone | [...] + + | 04/15/ | Office | [facility] | Felipe Hernandez, | S/P lumbar fusion | | 2013 | Visit | NEUROSURGERY [address] | PA-C [address] | (Primary Dx) | | | | [address] | [place], [place] | | | | | [place], [place] | [address] | | | | | [address] | | | | | | [phone] | | | +--------+---------+ + + + [...] Hernandez PA-C - 04/15/2013 11:36 AM PST eFlipe Hernandez PA-C [address] [facility], [address] [place] [address] FAX: NEUROSURGERY SURGICAL FOLLOW-UP CHIEF COMPLAINT: Chief [...] | 2019 | Visit | | MD [address] | | | | | | [facility] | | | | | | [place] | | | | | | [address] | | | | | | | [...] + | MISCELLANEOUS LAB | | | [phone] | + +---------+ + + | MISCELANIOUS LAB | | | [phone] | + +---------+ + + documented in this encounter Visit Diagnoses + + | Diagnosis | + + | S/P lumbar fusion - Primary Arthrodesis status | + + documented in this encounter
--- OUTSIDE RECORDS SUMMARY | ~2019-07-17 | XMS | Encounter Summary ---
Demographics + + + | Address | [address] | | | [place] [address] | + + + | Home Phone | | + + + | Preferred Language | Unknown | + + + | Marital Status | Single | + + + | Denominational Affiliation | Unknown | + + + | Race | White | + + + | Ethnic Group | Not or | + + + Author + + + | Author | [facility] | + + + | Organization | [facility] | + + + | Address | Unknown | + + + | Phone | Unavailable | + + + Support + + +---------+ + | Name | Relationship | Address | Phone | + + +---------+ + | Beatrice Paulson | ECON | Unknown | | + + +---------+ + Care Team Providers + +------+ + | Care Die Cutter Operator Name | Role | Phone | [...] | 2012 | | [facility] | [address] | outside [place]) | | | | at [facility] | [place] [address] | | | | | Health & Healing | [phone] | | | | | [address] | | | | | | Mailcode: CH8C | | | | | | [facility] | | | | | | and Healing, | | | | | | Building | | | | | | Floor [place], [place] | | | | | | [address] | | | | | | [phone] | | | +--------+ + + + [...]
--- OUTSIDE RECORDS SUMMARY | ~2019-07-17 | XMS | Encounter Summary ---
Demographics + + + | Address | [address] | | | [place] [address] | + + + | Home Phone [...] [place] | | | | | [address] | | + + + + + | Beatrice Paulson | ECON | [address] | | | | | [place] | | | | | [address] | | + + + + + Care Team Providers + +------+ + | Care Senior Staff Specialized Employment Name | Role | Phone | + [...] + + | 09/09/ | Office | [facility] | Alex Cutler, | Chronic neck pain | | 2018 | Visit | PHYSIATRY [address] | PA-C [address] | (Primary Dx); S/P | | | | [address] | [address] [place] | cervical spinal | | | | [place], [place] | [place] [address] | fusion | | | | [address] | [phone] | | | | | [phone] | | | +--------+---------+ + + + [...] to bend and move. Date Last Reviewed: 11/28/201419999273-6167 [employer] [address]. [address] [place] [address]. All righ ts reserved. This information is [...] has no apparent deficits with short or long term care social worker memory. She has appropriate fund of knowledge [...] PT (multiple sessions over the years) and palliative care specialist. Unfortunately Kassie Bear continues to have significant [...] | | | | | | [facility] | | | | | | [place] | | | | | | [address] | | | | | | | | +--------+---------+ + + + documented as of this encounter Visit Diagnoses + + | Diagnosis | + + | Chronic neck pain - Primary Cervicalgia | + + | S/P cervical spinal fusion Arthrodesis status | + + documented in this encounter
--- OUTSIDE RECORDS SUMMARY | ~2019-07-17 | XMS | Encounter Summary ---
Demographics + + + | Address | [address] | | | [place] [address] | + + + | Home Phone [...] [place] | | | | | [address] | | + + + + + | Beatrice Paulson | ECON | [address] | | | | | [place] | | | | | [address] | | + + + + + Care Team Providers + +------+ + | Care Senior Catering Sales Manager Name | Role | Phone | [...] + + | 06/15/ | Office | [facility] | Pranav Villar, [place] | Pseudoaneurysm | | 2019 | Visit | VASCULAR SURGERY | [address] | following procedure | | | | [address] | [place] | ([facility]) (Primary Dx); | | | | [place] | [address] | Groin hematoma, | | | | [address] | | subsequent encounter | | | | [phone] | | | +--------+---------+ + + + [...] Pranav Villar DNP - [facility] [address] [place] [address] DATE OF VISIT: 06/16/2019 PATIENT NAME: Kassie Bear : 1940; AGE: 78 y.o.; Sex:F PHONE NUMBER: ; ; PROVIDER: rPanav Villar DNP PRIMARY CARE / REFERRING PHYSICIAN: No ref. provider found / Parvez Vail MD / [address] [facility] / [place] [address] REASON FOR EVALUATION / CHIEF COMPLAINT: Vascular [...] | | | | | | [facility] [place] | | | | | | [id number] | | | | | | | | +--------+---------+ + + + documented as of this encounter Visit Diagnoses + + | Diagnosis | + + | Pseudoaneurysm following procedure (HCC) - Primary Vascular complications of other | | vessels | + + | Groin hematoma, subsequent encounter | + + documented in this encounter"
--- OUTSIDE RECORDS SUMMARY | ~2019-07-17 | XMS | Encounter Summary ---
Demographics + + + | Address | [address] | | | [place] [address] | + + + | Home Phone [...] [place] | | | | | [address] | | + + + + + | Beatrice Paulson | ECON | [address] | | | | | [place] | | | | | [address] | | + + + + + Care Team Providers + +------+ + | Care Patch Washer Name | Role | Phone | + [...] + + | 03/05/ | Telephone | [facility] | Olayinka Rothman | Appointment | | 2012 | | PHYSIATRY [address] | TMD [address] | | | | | [address] | [place], [place] | | | | | [place], [place] | [address] | | | | | [address] | | | | | | [phone] | | | +--------+ + + + [...] [place] | | | | | | [address] | | | | | | | | +--------+---------+ + + + documented as of this encounter Visit Diagnoses Not on filedocumented in this encounter"
--- OUTSIDE RECORDS SUMMARY | ~2019-07-17 | XMS | Encounter Summary ---
Demographics + + + | Address | [address] | | | [place] [address] | + + + | Home Phone [...] [place] | | | | | [address] | | + + + + + | Beatrice Paulson | ECON | [address] | | | | | [place] | | | | | [address] | | + + + + + Care Team Providers + +------+ + | Care Grout Machine Operator Name | Role | Phone | + +------+ + PCP | Unavailable | + +------+ + Encounter Details +--------+ + + + + | Date | Type | Department | Care Team | Description | +--------+ + + + + | 05/19/ | Hospital | [facility] | Justen Ribera | | | 2009 | Encounter | MED CTR LABORATORY | MD Kamla [address] | | | | | [address] [place] | [address] [place], [place] | | | | | [place], [place] | [address] | | | | | [address] | [phone] | | | | [phone] | | | +--------+ + + + [...] [place] | | | | | | [address] | | | | | | | | +--------+---------+ + + + documented as of this encounter Visit Diagnoses Not on filedocumented in this encounter"
--- OUTSIDE RECORDS SUMMARY | ~2019-07-17 | XMS | Encounter Summary ---
Demographics + + + | Address | [address] | | | [place] [address] | + + + | Home Phone [...] [place] | | | | | [address] | | + + + + + | Beatrice Paulson | ECON | [address] | | | | | [place] | | | | | [address] | | + + + + + Care Team Providers + +------+ + | Care Quality Assurance Coordinator Name | Role | Phone | [...] + + | 04/26/ | Office | [facility] | Pranav Villar, [place] | Pseudoaneurysm | | 2020 | Visit | VASCULAR SURGERY | [address] | following procedure | | | | [address] | [place] | ([facility]) (Primary Dx); | | | | [place] | [address] | Groin hematoma, | | | | [address] | | subsequent encounter | | | | [phone] | | | +--------+---------+ + + + [...] Pranav Villar DNP - 04/27/2019 9:30 AM [facility] [address] [place] [address] DATE OF VISIT: 04/27/2019 PATIENT NAME: Kassie Bear : 1940; AGE: 78 y.o.; Sex:F PHONE NUMBER: ; ; PROVIDER: Pranav Villar DNP PRIMARY CARE / REFERRING PHYSICIAN: No ref. provider found / Parvez Vail MD / [address] / [place] [address] REASON FOR EVALUATION / CHIEF COMPLAINT: Vascular [...] been staying at s wing bed in [facility] and has wound vac dressing change twice [...] systolic velocity, waveform analysis: Left lower extremity: AWNING INSTALLER prox: 196, triphasic DFA prox: 141, triphasic SFA prox: 152, triphasic SFA Mid: 99, triphas ic SFA dist: 96, triphasic Pop mid: 114, triphasic CARLOS prox: 106, triphasic CARLOS dist: 97, tr iphasic CARBURETOR EXPERT prox: 101, triphasic CARBURETOR EXPERT dist: 53, triphasic Peroneal prox: 23, triphasic [...] | | | | | [facility] [facility] | | | | | | [place] | | | | | | [address] | | | | | | | | +--------+---------+ + + + documented as of this encounter Visit Diagnoses + + | Diagnosis | + + | Pseudoaneurysm following procedure (HCC) - Primary Vascular complications of other | | vessels | + + | Groin hematoma, subsequent encounter | + + documented in this encounter"
--- OUTSIDE RECORDS SUMMARY | ~2019-07-17 | XMS | Encounter Summary ---
Demographics + + + | Address | [address] | | | [place] [address] | + + + | Home Phone [...] [place] | | | | | [address] | | + + + + + | Beatrice Paulson | ECON | [address] | | | | | [place] | | | | | [address] | | + + + + + Care Team Providers + +------+ + | Care Ux Research Associate Name | Role | Phone | [...] Nathaniel F | | | | | ([facility]) | [place], [place] | [place], | | | | | | [address] | [place] [address] | | | | | | Phone: | Phone: | | | | | | [phone] | [phone] | | | | | | Fax: | Fax: | | | | | | [phone] | [phone] | + + + + + + + Encounter Details +--------+---------+ + + + | Date | Type | Department | Care Team | Description | +--------+---------+ + + + | 02/18/ | Office | [facility] EP | Elvin Jamil | Persistent atrial | | 2020 | Visit | CARDIOLOGY [place] | MD [address] | fibrillation (HCC) | | | | [address] | [email or web address], [facility] | (Primary Dx); Sleep | | | | [place] | [place] | apnea, unspecified | | | | [address] | [address] | type | | | | [phone] | | | +--------+---------+ + + + [...] was then performed in December 2018 with caodaism of sinus rhythm. She noted impr ovement [...] EP CARDIOVERSION; Surgeon: Lori Recinos DO; [place] [facility] [place] Cataract Surgery 10/29/2011(left eye, Right [...] removed Left 08/25/14 Performed by Rufina Bach STEMHOLE BORER AND TOPPER for Dr. Shah, [place] TOTAL KNEE ARTHROPLASTY Left 06/28/[address] Will at [facility] TOTAL KNEE ARTHROPLASTY TRANSTHORACIC ECHOCARDIOGRAM 08/2018 [...] - ECG 12 lead; Standing - Void sergeant of corrections to OR; Standing - Skin prep; Standing [...] and cardioversion performed in December 2018 with caodaism of sinus rhythm. She did note an improvement in her symptoms with caodaism of sinus rhythm but unfortunately symptoms returned [...] [place] | | | | | | [address] | | | | | | | [...] | | | | | by [facility] [place] Read Only, | | | | | | [facility] [place] ([id number]), | | | | | | editor city Noe Lozano | | | | | | ([id number]) on 02/18/2019 | | | | | [...]
--- OUTSIDE RECORDS SUMMARY | ~2019-07-17 | XMS | Encounter Summary ---
Demographics + + + | Address | [address] | | | [place] [address] | + + + | Home Phone | | + + + | Preferred Language | Unknown | + + + | Marital Status | Single | + + + | Muslim Affiliation | Unknown | + + + | Race | White | + + + | Ethnic Group | Not or | + + + Author + + + | Author | [facility] | + + + | Organization | [facility] | + + + | Address | Unknown | + + + | Phone | Unavailable | + + + Support + + +---------+ + | Name | Relationship | Address | Phone | + + +---------+ + | Beatrice Paulson | ECON | Unknown | | + + +---------+ + Care Team Providers + +------+ + | Care Trip Motor Operator Name | Role | Phone | [...] [address] | | | | | [facility] | Yuri [place], | | | | | and Healing [address] | [place] [address] | | | | | [place] Mailcode: | [phone] | | | | | [address] | | | | | | Health and Healing, | | | | | | [facility] | | | | | | [place], [place] | | | | | | [address] | | | | | | [phone] | | | +--------+ + + + [...]
--- OUTSIDE RECORDS SUMMARY | ~2019-07-17 | XMS | Encounter Summary ---
Demographics + + + | Address | [address] | | | [place] [address] | + + + | Home Phone [...] [place] | | | | | [address] | | + + + + + | Beatrice Paulson | ECON | [address] | | | | | [place] | | | | | [address] | | + + + + + Care Team Providers + +------+ + | Care Research Advisor Name | Role | Phone | [...] + | 02/22/ | Telephone | [facility] | Wilton Smith, | Results | | 2015 | | NEUROSURGERY [address] | DO [address] | | | | | [address] [facility] [address] | [address] [place], [place] | | | | | [place], [place] | [id number] | | | | | [address] | | | | | | [phone] | | | +--------+ + + + [...] [place] | | | | | | [address] | | | | | | | | +--------+---------+ + + + documented as of this encounter Visit Diagnoses Not on filedocumented in this encounter"
--- OUTSIDE RECORDS SUMMARY | ~2019-07-17 | XMS | Encounter Summary ---
Demographics + + + | Address | [address] | | | [place] [address] | + + + | Home Phone [...] [place] | | | | | [address] | | + + + + + | Beatrice Paulson | ECON | [address] | | | | | [place] | | | | | [address] | | + + + + + Care Team Providers + +------+ + | Care Paper Roller Name | Role | Phone | + [...] | | | | | disease) | [place], [place] | | | | | | (HCC) | [address] | | | | | | Procedures | Phone: | | | | | | VAS Lwr Ext | [phone] | | | | | | Art Lt w CHRIS | Fax: | | | | | | Multi Lvl | [phone] | | +--------+--------+ + + + + Reason for Visit + + + | Reason | Comments | + + + | Follow-up | | + + + Encounter Details +--------+ + + + + | Date | Type | Department | Care Team | Description | +--------+ + + + + | 04/12/ | Telephone | [facility] | Courtney Hines, | Follow-up | | 2019 | | VASCULAR SURGERY | Combination Man | | | | | [address] | | | | | | [place] | | | | | | [address] | | | | | | [phone] | | | +--------+ + + + [...] [address] | | | | | | [facility] | | | | | | [place] | | | | | | [address] | | | | | | | [...] | | | analysis: Left lower extremity: PRODUCTION DESIGNER prox: 196, triphasic DFA | | | prox: 141, triphasic SFA prox: 152, triphasic SFA Mid: 99, triphasic | | | SFA dist: 96, triphasic Pop mid: 114, triphasic CARLOS prox: 106, | | | triphasic CARLOS dist: 97, triphasic FIELD CHECKER prox: 101, triphasic FIELD CHECKER | | | dist: 53, triphasic Peroneal [...] | | Left lower extremity: | | PRODUCTION DESIGNER prox: 196, triphasic | | DFA prox: 141, triphasic | | SFA prox: 152, triphasic | | SFA Mid: 99, triphasic | | SFA dist: 96, triphasic | | Pop mid: 114, triphasic | | CARLOS prox: 106, triphasic | | CARLOS dist: 97, triphasic | | FIELD CHECKER prox: 101, triphasic | | FIELD CHECKER dist: 53, triphasic | | Peroneal prox: [...]
--- OUTSIDE RECORDS SUMMARY | ~2019-07-17 | XMS | Encounter Summary ---
Demographics + + + | Address | [address] | | | [place] [address] | + + + | Home Phone [...] [place] | | | | | [address] | | + + + + + | Beatrice Paulson | ECON | [address] | | | | | [place] | | | | | [address] | | + + + + + Care Team Providers + +------+ + | Care Regulatory Law Specialist Name | Role | Phone | [...] + + | 02/12/ | Refill | [facility] | Venkata Colin | Medication Refill | | 2013 | | MED CTR IRF [address] | [address] | | | | | [place], | [place] | | | | | [place] [address] | [place] [address] | | | | | [phone] | [phone] | | | | | | | [...] [place] | | | | | | [address] | | | | | | | | +--------+---------+ + + + documented as of this encounter Visit Diagnoses Not on filedocumented in this encounter"
--- OUTSIDE RECORDS SUMMARY | ~2019-07-17 | XMS | Encounter Summary ---
Demographics + + + | Address | [address] | | | [place] [address] | + + + | Home Phone | | + + + | Preferred Language | Unknown | + + + | Marital Status | | + + + | Samaritan Affiliation | Unknown | + + + | Race | Unknown | + + + | Ethnic Group | Unknown | + + + Author + + + | Author | [facility] | | | and [place] | + + + | Organization | [facility] | | | and [place] | + + + | Address | Unknown | + + + | Phone | Unavailable | + + + Support + + + + + | Name | Relationship | Address | Phone | + + + + + | Veronica Anderson | ECON | [place] | | | | | [address] | | + + + + + | Beatrice Paulson | ECON | [address] | | | | | [place] | | | | | [address] | | + + + + + Care Team Providers + +------+ + | Care Refrigeration Engine Operator Name | Role | Phone | [...] | Wilton Alarcon DO | [address] | | | | | spasticity | [address] | [place], | | | | | Lumbago | [address] | [place] | | | | | Lumbar | [place] | [address] | | | | | spondylosis | [address] | Phone: | | | | | Lumbar | Phone: | [phone] | | | | | canal | [phone] | Fax: | | | | | stenosis | Fax: | [phone] | | | | | Weakness of | [phone] | | | | | | both [...] | | | | | Lumbar | [place] | [place] | | | | | stenosis | [address] | [address] Phone: | | | | | Procedures | [place], | [phone] | | | | | [place] OFFICE | [place] | Fax: | | | | | CONSULTATION | [address] | [phone] | | | | | NEW/ESTAB | Phone: | | | | | | PATIENT 60 | [phone] | | | | | | MIN | Fax: | | | | | | | [phone] | | +--------+--------+ + + + + Encounter Details +--------+---------+ + + + | Date | Type | Department | Care Team | Description | +--------+---------+ + + + | 12/01/ | Office | [facility] | Wilton Smith, | Muscle spasticity | | 2012 | Visit | NEUROSURGERY [address] | DO [address] | (Primary Dx); | | | | [address] | [address] [place], [place] | Lumbago; Lumbar | | | | [place], [place] | [id number] | spondylosis; 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 Wilton Smith DO [address] [facility], [address] [place], [place] [address] FAX: NEUROSURGERY HISTORY AND PHYSICAL EXAMINATION CHIEF [...] doing physical therapy, but the therapist erin robbins like she is not making any [...] no apparent deficits with short or terminal clerk memory. CRANIAL NERVES: II: Acuity is intact. [...] Intrinsics 5 5 Ulnar Intrinsics 5 5 Transit Specialist Strength 5 5 Hip Flexion 4 [...] plan for TLIF L1-L5. She will follow-up [facility] Dr. Pettit for preoperative clearance and optimization [...] | | | | | | [place], [place] | | | | | | [address] | | | | | | | | +--------+---------+ + + + documented as of this encounter Results MRI Thoracic Spine wo Contrast (12/01/2012 4:52 PM PDT) + + | Specimen | + + | | + + + + + | Narrative | Performed At | + + + | [facility] | [place] | | Department [address] [place] [address] | [facility] | | [ rep ct street[address]] [ rep [facility] | | st zip] Signed | - IMAGING | | | | | Patient Name: HEMANT CUMMINSYCSaeed Alarcon Physician: | | | : 1940 Age: 72 Sex: F Unit #: [id number] | | | Exam Date: 12/01/12 Location: [facility] [place] | | | Report #: [id number] Page: | | | %(RAD)RES..mtdd.print.filter("pg") of %(RAD) | | | RES..mtdd.print.filter("tpg") | | | | | | Accession Number: [id number] | | | MRI THORACIC SPINE CLINICAL [...] Transcribed | | | Date/Time: 12/01/2012 19:29 [employer]: | | | <<Signature on File>> | | | | | | Michael Lopez MD12/02/12 0727 <Electronically signed by | | | Michael Lopez MD> Michael Lopez MD 12/01/12 | | | 3362 [employer]: Campus Diaries [id number] | | | Wilton Smith DO | | + + + + + + + + | Performing | Address | City/State/Zipcode | Phone Number | | Organization | | | | + + + + + | [facility] | [address] | [place] | [phone] | | [facility] | | [address] | | | - IMAGING | | [...]
--- OUTSIDE RECORDS SUMMARY | ~2019-07-17 | XMS | Encounter Summary ---
Demographics + + + | Address | [address] | | | [place] [address] | + + + | Home Phone [...] [place] | | | | | [address] | | + + + + + | Beatrice Paulson | ECON | [address] | | | | | [place] | | | | | [address] | | + + + + + Care Team Providers + +------+ + | Care Stucco Laborer Name | Role | Phone | + [...] Specialty | Physical | Diagnoses | Luis, | | | | Services | Therapy | Lumbar | Wilton Alarcon DO | | | | Required | | spondylosis | [address] | | | | | | Lumbar | [address] | | | | | | stenosis | [place] | | | | | | Lumbar | [address] | | | | | | radicular | Phone: | | | | | | pain | [phone] | | | | | | Lumbago | Fax: | | | | | | | [phone] | | +--------+ + + + + [...] [address] | [address] [place], [place] | stenosis; Lumbar | | | | [place] | [address] | radicular pain; | | | | [address] | | Lumbago | | | | [phone] | | | +--------+ + + + [...] [address] | | | | | | [facility] | | | | | | [place] | | | | | | [address] | | | | | | | [...]
--- OUTSIDE RECORDS SUMMARY | ~2019-07-17 | XMS | Encounter Summary ---
Demographics + + + | Address | [address] | | | [place] [address] | + + + | Home Phone [...] [place] | | | | | [address] | | + + + + + | Beatrice Paulson | ECON | [address] | | | | | [place] | | | | | [address] | | + + + + + Care Team Providers + +------+ + | Care Maintenance Mechanic Millwright Name | Role | Phone | + +------+ + | Venkata Pettit MD | PCP | | + +------+ + Encounter Details +--------+ + + + + | Date | Type | Department | Care Team | Description | +--------+ + + + + | 11/17/ | Hospital | [facility] | | | | 2012 | Encounter | MED CTR XRAY [address] | | | | | | [place] | | | | | | [place] [address] | | | | | | [phone] | | | +--------+ + + + [...] [address] | | | | | | [facility] | | | | | | [place] | | | | | | [address] | | | | | | | [...] Performed At | + + + | [facility] | [place] | | Department [address] [facility] | [facility] | | [ rep ct street1[address]] [ rep [facility] | | st [facility]] Signed | - IMAGING | | | | | Patient Name: KASSIE BEAR Physician: | | | 20 : 1940 Age: 72 Sex: F Unit #: [id number] | | | Exam Date: 11/17/12 Location: [facility] | | | Report #: [id number] Page: | | | %(RAD)RES..mtdd.print.filter("pg") of %(RAD) | | | RES..mtdd.print.filter("tpg") | | | | | | Accession Number: [id number] | | | MRI OF THE LUMBAR [...] Transcribed Date/Time: | | | 11/17/2012 18:02 Service Loss Control Consultant: | | | <<Signature on File>> | | | Domingo | | | MD [id number] <Electronically signed by Domingo Ovalles MD> | | | Domingo Ovalles MD 11/17/12 1428 Service Loss Control Consultant: Sujatha | | | [id number]/07/13 1802 Venkata Pettit MD | | + + + + + + + + | Performing | Address | City/State/Zipcode | Phone Number | | Organization | | | | + + + + + | [facility] | [address] | [place] | [phone] | | [facility] | | [address] | | | - IMAGING | | | | + + + + + documented in this encounter Visit Diagnoses Not on filedocumented in this encounter
--- OUTSIDE RECORDS SUMMARY | ~2019-07-17 | XMS | Encounter Summary ---
Demographics + + + | Address | [address] | | | [place] [address] | + + + | Home Phone [...] [place] | | | | | [address] | | + + + + + | Beatrice Paulson | ECON | [address] | | | | | [place] | | | | | [address] | | + + + + + Care Team Providers + +------+ + | Care Surface Grinder Tender Name | Role | Phone | [...] | | | | fibrillation | | [place], [place] | | | | | (HCC) | | [address] Phone: | | | | | Procedures | | [phone] | | | | | CA CATH PLMT | | Fax: | | | | | L HRT & | | [phone] | | | | | ARTS W/NJX & | | | | | | | ANGIO IMG | | | | | | | S&I | | | +--------+--------+ + + + + Encounter Details +--------+ + + + + | Date | Type | Department | Care Team | Description | +--------+ + + + + | 12/22/ | Hospital | [facility] | Lori Recinos DO | 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 [address] [place] [address], [place] [address]. All righ ts reserved. This information is [...] [address] | | | | | | [facility] | | | | | | F [place], [place] | | | | | | [address] | | | | | | | [...] the | | | | PST | ([facility]) | results section. | + [...] | INR | 2.2Comment: REFERENCE | | [facility] | | | | RANGE:0.9 [...] | | | | | performed at [facility] | | | | | | [facility];[place], [place] | | | | | | [address] | | | | + + + + + + + + | Specimen | + + | Blood | + + + + + + + | Performing | Address | City/State/Zipcode | Phone Number | | Organization | | | | + + + + + | [facility] | [address] | [place] [address] | [phone] | + + + + + Comprehensive [...] | | | | | performed at [facility];[address] | | | | | | [address];[place] | | | | | | [address] | | | | + + + + + + + + | Specimen | + + | Blood | + + + + + + + | Performing | Address | City/State/Zipcode | Phone Number | | Organization | | | | + + + + + | [facility] | [address] | [place] [address] | [phone] | + + + + + CBC [...] | | | Absolute | performed at [facility];[address] | K/uL | LABORATORY | | | | [address];[place], [place] | | | | | | [address] | | | | + + + + + + + + | Specimen | + + | Blood | + + + + + + + | Performing | Address | City/State/Zipcode | Phone Number | | Organization | | | | + + + + + | [facility] | [address] | [place] [address] | [phone] | + + + + + ECG [...]
[~2019-07-17 03:59] MED LIST changes: +DOK PLUS TABLE1 EACH PO; +NYSTATIN1 EAC2 TOP; +POLYETHYLENE GL17 GM PO; +VITAMIN B-121000 MCG PO
[2019-07-17] MEDS ORDERED: NORCO 5-325 TA1 EACH PO (05:53)
[2019-07-17] MEDS ORDERED: CYCLOBENZAPRINE10 MG PO (05:53)
== END 2019-07-17 10:15 | disposition home or self-care (01) ==
LOC: ED 03:59
DX: M62.830 Muscle spasm of back (principal); Z88.8 Allergy status to other drugs, medicaments and biological substances; Z79.899 Other long term (current) drug therapy
CPT/HCPCS: 72100; 96374; 96375; 97116; 97161; 99283-25; J1170; J1885; J2405; J2930; J3360

== ENCOUNTER 2022-09-22 00:18 | Inpatient (IN) | payer MEDICARE, OTHER ==
[~2022-09-22] VITALS: Ht 172.7 cm; Wt 127.6 kg
--- OUTSIDE RECORDS SUMMARY | ~2022-09-22 | XMS | Continuity of Care Document ---
Demographics + + + | Address | [address] | | | [place] [address] | + + + | Preferred Language | Unknown | + + + | Marital Status | | + + + | Anabaptism Affiliation | Unknown | + + + | Race | White | + + + | Ethnic Group | Unknown | + + + Author + + + | Author | [facility] | + + + | Organization | [facility] | + + + | Address | [address] | | | [place] [address] | + + + | Phone | | + + + Care Team Providers + + + + | Care Machine Made Shoe Unit Worker Name | Role | Phone | + + + + Unavailable | Unavailable | + + + + Allergies and Intolerances + + + + + + | date | description | facility | reaction | severity | + + + + + + | (no date) | No Known Drug | [facility] | (no reaction) | (no severity) | | | Allergies | | | | + + + + + + | (no date) | simvastatin | [facility] | (no reaction) | (no severity) | + + + + + + | (no date) | pregabalin | [facility] | (no reaction) | (no severity) | + + + + + + Encounters No information. Functional Status No information. Immunizations No information. Medications No information. Problems + + + + | date | description | facility | + + + + | 2022-02-27 14:45 | OTHER PERSISTENT ATRIAL | [facility] | | | FIBRILLATION | | + + + + | 2022-02-27 14:45 | ENCOUNTER FOR THERAPEUTIC | [facility] | | | DRUG LEVEL MONITORING | | + + + + | 2022-02-27 14:45 | DETENTION (CURRENT) USE OF | [facility] | | | ANTICOAGULANTS | | + + + + | 2022-03-20 10:12 | AGE-RELATED OSTEOPOROSIS | [facility] | | | W/O CURRENT PATHOLOGICAL | | | | FRACTURE | | + + + + | 2022-03-20 10:12 | OTH DISRD OF BONE DENSITY | [facility] | | | AND STRUCTURE, MULTIPLE | | + + + + | 2022-04-18 14:50 | CERVICALGIA | [facility] | + + + + | 2022-04-24 14:45 | OTHER PERSISTENT ATRIAL | [facility] | | | FIB[facility]LL[facility] | | + + + + | 2022-04-24 14:45 | ENCOUNTER FOR THERAPEUTIC | [facility] | | | DRUG LEVEL MONITORING | | + + + + | 2022-04-24 14:45 | DIRECTOR OF OCCUPATIONAL THERAPY (CURRENT) USE OF | [facility] | | | ANTICOAGULANTS | | + + + + | 2022-05-14 15:41 | CERVICALGIA | [facility] | + + + + | 2022-06-12 08:08 | CERVICALGIA | [facility] | + + + + | 2022-06-14 16:56 | CERVICALGIA | [facility] | + + + + | 2022-06-15 14:24 | ENCNTR SCREEN MAMMOGRAM | [facility] | | | FOR MALIGNANT NEOPLASM OF | | | | BREAST | | + + + + | 2022-06-19 14:45 | PURE HYPERCHOLESTEROLEMIA, | [facility] | | | UNSPECIFIED | | + + + + | 2022-06-19 14:45 | Essential (primary) | [facility] | | | hypertension | | + + + + | 2022-06-19 14:45 | OTHER PERSISTENT ATRIAL | [facility] | | | FIB[facility]LLATION | | + + + + | 2022-06-19 14:45 | ANEURYSM OF UNSPECIFIED | [facility] | | | SITE | | + + + + | 2022-06-19 14:45 | ENCOUNTER FOR THERAPEUTIC | [facility] | | | DRUG LEVEL MONITORING | | + + + + | 2022-06-19 14:45 | DETENTION (CURRENT) USE OF | [facility] | | | ANTICOAGULANTS | | + + + + | 2022-07-12 07:13 | LOW BACK PAIN, UNSPECIFIED | [facility] | | | | | + + + + | 2022-08-21 14:25 | UNSPECIFIED ATRIAL | [facility] | | | FIB[facility]LLATION | | + + + + Procedures No information. Results/Labs No information. Social History No information. Vital Signs No information."
--- OUTSIDE RECORDS SUMMARY | ~2022-09-22 | XMS | Continuity of Care Document ---
Demographics + + + | Address | [address] | | | [place] [address] | + + + | Preferred Language | Unknown | + + + | Marital Status | | + + + | Roman Catholic Affiliation | Unknown | + + + | Race | White | + + + | Ethnic Group | Unknown | + + + Author + + + | Author | [facility] | + + + | Organization | [facility] | + + + | Address | [address] | | | [place] [address] | + + + | Phone | | + + + Care Team Providers + + + + | Care Player Services Representative Name | Role | Phone | [...] + + + | 2022-02-27 14:45 | JAIL (CURRENT) USE OF | [facility] | | [...] + + + | 2022-04-24 14:45 | CESSATION SYSTEMS OUTREACH SPECIALIST (CURRENT) USE OF | [facility] | | [...] + + + | 2022-06-19 14:45 | JAIL (CURRENT) USE OF | [facility] | | [...]
--- OUTSIDE RECORDS SUMMARY | ~2022-09-22 | XMS | Continuity of Care Document ---
Demographics + + + | Address | [address] | | | [place] [address] | + + + | Preferred Language | Unknown | + + + | Marital Status | | + + + | Taoism Affiliation | Unknown | + + + | Race | White | + + + | Ethnic Group | Unknown | + + + Author + + + | Author | [facility] | + + + | Organization | [facility] | + + + | Address | [address] | | | [place] [address] | + + + | Phone | | + + + Care Team Providers + + + + | Care Medicare Sales Representative Name | Role | Phone | [...] + + + | 2022-02-27 14:45 | [facility] (CURRENT) USE OF | [facility] | | [...] + + + | 2022-04-24 14:45 | CLOTH STOCK SORTER (CURRENT) USE OF | [facility] | | [...] + + + | 2022-06-19 14:45 | [facility] (CURRENT) USE OF | [facility] | | [...]
[~2022-09-22 00:18] MED LIST changes: +AVAPRO75 MG PO; +CALCIUM500 M1 PO; -COUMADIN5 MG PO; +CYCLOBENZAPRINE10 MG PO; +DULOXETINE HCL20 MG PO; +FOSAMAX70 MG PO; +NORCO 5-325 TA1 EACH PO; +PROLIA60 MG/1 ML SUB-Q; +WARFARIN SODIUM5 MG PO
[2022-09-22 00:52] LABS: BASOPHILS 0.3 % (0-2); EOSINOPHILS 0.1 % (0-6); HEMATOCRIT 43.2 % (35.0-50.0); HEMOGLOBIN 14.3 g/dL (12.0-18.0); LYMPHOCYTES 3.5 % (24-44); MCH 30.2 (27-36); MCV 91.6 fl (81-99); NEUTROPHILS 92.1 % (39-80); PLATELET COUNT 235 K/uL (140-440); RBC 4.72 M/ul (4.3-5.7); RDW 13.5 (10.5-15.0)
[2022-09-22 01:03] LABS: INR 4.08 (0.80-1.30); PROTIME 38.4 Sec (11.2-14.2)
[2022-09-22 01:08] LABS: BILIRUBIN, URINE POSITIVE (negative); BLOOD/HGB, URINE LARGE (Negative); KETONE, URINE SMALL (Negative); LEUK ESTERASE, URINE TRACE (negative); NITRITE, URINE NEGATIVE (negative)
[2022-09-22 01:12] LABS: ALBUMIN 3.8 g/dL (3.4-5.0); ALBUMIN/GLOBULIN RATIO 0.95 (1.1-2.4); ANION GAP 13.4 (7-21); BILIRUBIN, TOTAL 0.4 ng/dL (0.2-1.0); CALCIUM 9.1 mg/dL (8.5-10.1); CREATININE, SERUM 1.05 mg/dL (0.55-1.02); POTASSIUM 4.4 mmol/L (3.5-5.1); PROTEIN, TOTAL 7.8 g/dL (6.4-8.2)
[2022-09-22 01:13] LABS: EPITHELIAL CELLS, URINE 0 /lpf (0-1+); RED BLOOD CELLS, URINE >50 /hpf (0-5); REFLEX CULTURE, URINE No (No)
[2022-09-22] MEDS ORDERED: PROLIA60 MG/1 ML SUB-Q (01:31)
[2022-09-22] MEDS ORDERED: TYLENOL EXTRA500 MG PO (01:32)
[2022-09-22] MEDS ORDERED: CEPHALEXIN500 M1 PO (02:51)
[2022-09-22] MEDS ORDERED: ONDANSETRON ODT4 MG PO (03:03)
[2022-09-22] MEDS ORDERED: PYRIDIUM100 MG PO (03:03)
[2022-09-22 03:29] LABS: LACTIC ACID, BLOOD 2.9 mmol/L (0.4-2.0)
[2022-09-22 04:21] VITALS: BP 155/66
--- NOTE | 2022-09-22 06:23 | NUR ---
UPON ASSESSMENT, PT URINATED EBENEZER RED BLOOD WITH SOME BLOOD CLOTS IN TOILET. PT IN NO ACUTE DISTRESS AND VS WNL. DR. SALGADO NOTIFIED OF PT'S URINE. NO NEW ORDERS AT THIS TIME. CALL LIGHT WITHIN REACH.
--- NOTE | 2022-09-22 07:16 | NUR ---
REPORT RECEIVED FROM SOLAR SALES SPECIALIST RN, ALL QUESTIONS ANSWERED. PT RESTING IN BED WITH EYES CLSED, RESPIRATIONS EVEN AND UNLABORED. CALL LIGHT IN REACH.
--- NOTE | 2022-09-22 09:10 | NUR ---
CHURN DRILL OPERATOR WENT TO REMOVE TELE, FOUND PT HAD AMBULATED TO BATHROOM, INCONTINENT OF URINE. CHURN DRILL OPERATOR ASSISTED PT TO CHANGE GOWN AND SOCKS. IV ACCIDENTALLY PULLED WHEN AMBULATING TO BATHROOM. BEDDING CHANGED. PT ASSISTED BACK TO BED. PT ORIENTED X4, INSTRUCTED TO CALL FOR ASSISTANCE TO BATHROOM TO PREVENT FALLS OR IV BEING PULLED, BED ALARM PLACED.
--- NOTE | 2022-09-22 09:39 | NUR ---
PT EATING BREAKFAST, ALLOWED TO EAT BEFORE NEW IV PLACEMENT. PT DENIES OTHER NEEDS AT THIS TIME.
[2022-09-22 10:12] VITALS: BP 114/47
--- NOTE | 2022-09-22 11:20 | NUR ---
MORNING ASSESSMENT COMPLETE. PT SITTING UP AWAKE IN BED, ALERT AND ORIENTED. PT DENIES PAIN AT THIS TIME. CALL LIGHT IN REACH. PT DENIES FURTHER NEEDS AT THIS TIME.
--- NOTE | 2022-09-22 14:18 | NUR ---
MED REC COMPLETE
[2022-09-22 15:07] VITALS: BP 127/95
--- NOTE | 2022-09-22 15:39 | NUR ---
PT UP TO RESTROOM WITH THIS RN AND FWW. STEADY ON FEET. DENIES PAIN AT THIS TIME. AFTERNOON ASSESSMENT COMPLETE. PT DOES C/O URGENCY WITH URINATION. PT ASSISTED BACK TO BED, DENIES FURTHER NEEDS AT THIS TIME. CALL LIGHT IN REACH.
[2022-09-22 17:57] VITALS: BP 118/63
--- NOTE | 2022-09-22 19:28 | NUR ---
REPORT RECEIVED FROM DAY SHIFT RN. PT LYING IN BED ALERT AND ORIENTED. DENIES NEEDS. WHITE BOARD UPDATED. CALL LIGHT IN REACH.
[2022-09-22 20:09] VITALS: BP 133/94
--- NOTE | 2022-09-22 20:37 | NUR ---
PT UP TO BR WITH FWW AND SIDING MECHANIC ASSIST. INCONTINENT SMALL AMOUNT OF URINE. NO BLOOD NOTED. CLEAN SALAZAR PAD PROVIDED. BACK TO BED, ZENA WELL. VS AND I&O OBTAINED. EVENING ASSESSMENT COMPLETE. SCHEDULED MEDS ADMIN PER EMAR. PT REPORTS CHRONIC BACK PAIN, WOULD LIKE TO WAIT FOR PRN FOR PAIN UNTIL CLOSER TO BED TIME. PT DENIES QUESTIONS OR CONCERNS. CALL LIGHT IN REACH. BED ALARM FOR SAFETY.
--- NOTE | 2022-09-22 23:15 | NUR ---
BED ALARM SOUNDING. PT TRYING TO REPOSITION SELF FOR COMFORT. C/O BACK PAIN. PRN FOR PAIN ADMIN PER EMAR. NO FURTHER NEEDS. BED ALARM IN PLACE. CALL LIGHT IN REACH.
--- NOTE | 2022-09-23 00:39 | NUR ---
BED ALARM SOUNDING. PT UP TO BR WITH FWW AND SBA TO VOID ORANGE URINE WITH BLOOD NOTED. PT DENIES PAIN WITH URINATION. BACK TO BED, ZENA WELL. BED ALARM FOR SAFETY. CALL LIGHT IN REACH.
--- NOTE | 2022-09-23 01:36 | NUR ---
BED ALARM SOUNDING. PT UP TO BR WITH FWW AND SBA TO VOID AN UNMEASURED AMOUNT OF ORANGE/RED URINE. BACK TO BED, ZENA WELL. NO FURTHER NEEDS. BED ALARM FOR SAFETY.
[2022-09-23 01:59] VITALS: BP 121/54
--- NOTE | 2022-09-23 02:37 | NUR ---
PT UP TO BR WITH SENIOR HYDROGEOLOGIST ASSIST. BACK TO BED, ZENA WELL. PRN FOR URINARY IRRITATION ADMIN PER EMAR. URINE REMAINS RED/ORANGE IN COLOR. ASSESSMENT UNCHANGED. NO FURTHER NEEDS. BED ALARM ON. CALL LIGHT IN REACH.
--- NOTE | 2022-09-23 04:31 | NUR ---
PT UP TO BR WITH SBA AND FWW. BACK TO BED, ZENA WELL. BED ALARM IN PLACE. CALL LIGHT IN REACH.
[2022-09-23 06:03] LABS: BASOPHILS 0.5 % (0-2); EOSINOPHILS 2.1 % (0-6); HEMATOCRIT 38.3 % (35.0-50.0); HEMOGLOBIN 12.2 g/dL (12.0-18.0); LYMPHOCYTES 10.8 % (24-44); MCH 29.5 (27-36); MCHC 31.9 g/dl (30-36); MCV 92.6 fl (81-99); MONOCYTES 8.8 % (0-12); NEUTROPHILS 77.8 % (39-80); PLATELET COUNT 181 K/uL (140-440); RBC 4.14 M/ul (4.3-5.7); RDW 13.6 (10.5-15.0)
[2022-09-23 06:13] LABS: ANION GAP 13.2 (7-21); BUN/CREATININE RATIO 17.82 (6.0-28.6); CREATININE, SERUM 1.01 mg/dL (0.55-1.02); POTASSIUM 4.2 mmol/L (3.5-5.1)
[2022-09-23 06:23] LABS: INR 2.89 (0.80-1.30); PROTIME 29.4 Sec (11.2-14.2)
[2022-09-23 06:26] LABS: PARTIAL THROMBOPLASTIN TIME 52.5 Sec (22.9-41.3)
[2022-09-23 06:42] VITALS: BP 122/74
--- NOTE | 2022-09-23 06:48 | NUR ---
PT UP TO BR TO VOID WITH LINEN ROOM ATTENDANT ASSIST. VS AND I&O COMPLETE. NO FURTHER NEEDS. BED ALARM ON. CALL LIGHT IN REACH.
--- NOTE | 2022-09-23 08:10 | NUR ---
PT ASSISTED TO RESTROOM 1 PERSON ASSIST WITH FWW. BRIEF AND SALAZAR CARE PROVIDED. PT TO RECLINER FOR BREAKFAST. RE EDUCATED METAL PATTERNMAKER LIGHT USE, WITHIN REACH. CHAIR ALARM IN PLACE AND ON. PT DENIES FURTHER NEEDS AT THIS TIME.
[2022-09-23 09:12] VITALS: BP 120/51
--- NOTE | 2022-09-23 09:30 | NUR ---
MORNING ASSESSMENT COMPLETE. PT SITTING UP IN RECLINER. DENIES PAIN, ABD PAIN OR PAIN WITH URINATION. URINE CLEAR ORANGE AT THIS TIME. PT APPEARS FORGETFUL. CHAIR ALARMS PLACED. PT DENIES FURTHER NEEDS AT THIS TIME, CALL LIGHT IN REACH AND CHAIR ALARM ON.
--- NOTE | 2022-09-23 10:13 | NUR ---
PATIENT UP TO BATHROOM TO VOID, BACK TO CHAIR AND CHAIR ALARM IS ON.
[2022-09-23 13:30] VITALS: BP 101/48
--- NOTE | 2022-09-23 16:45 | NUR ---
PT UP TO RESTROOM, 50ML GROSS HEMATURIA NOTED, DR TEE AWARE AND IN ROOM. WILL CONTINUE TO MONITOR URINE OUTPUT.
[2022-09-23 18:15] VITALS: BP 114/55
--- NOTE | 2022-09-23 18:23 | NUR ---
PATIENT IN BED AFTER USING BATHROOM. VITALS AND I/O'S COMPLETED. PT HAS NO OTHER REQUESTS AT THIS TIME. ICE WATER GIVEN. BED ALARM ON, CALL LIGHT WITHIN REACH.
--- NOTE | 2022-09-23 18:32 | NUR ---
PT UP TO RESTROOM, 100ML BLOODY URINE NOTED. PT TO BED. ALARMS ON. DENIES FURTHER NEEDS AT THIS TIME. CALL LIGHT AND BELONGINGS IN REACH.
--- NOTE | 2022-09-23 19:46 | NUR ---
REPORT RECEIVED FROM DAY SHIFT RN. PT LYING IN BED ALERT AND ORIENTED. DENIES NEEDS. WHITE BOARD UPDATED. CALL LIGHT IN REACH. BED ALARM FOR SAFETY.
[2022-09-23 20:00] VITALS: BP 116/52
--- NOTE | 2022-09-23 20:22 | NUR ---
EVENING ASSESSMENT COMPLETE. SCHEDULED MEDS ADMIN PER EMAR. PT DENIES PAIN OR NAUSEA. UP TO BR WITH FWW AND SBA TO VOID 150 ML RED URINE. PT DENIES PAIN WITH URINATION. GAIT STEADY. BACK TO BED, ZENA WELL. IV ABX INFUSING PER ORDER. VS AND I&O OBTAINED. PT DENIES QUESTIONS OR CONCERNS. CALL LIGHT IN REACH. BED ALARM FOR SAFETY.
--- NOTE | 2022-09-23 23:13 | NUR ---
PATIENT CALLED TO USE THE BATHROOM. SBA. PATIENT VOIDED DARK BLOODY URINE. PATIENT IS BACK IN BED. ICE WATER REFRESHED. BED ALARM ON FOR SAFETY.
--- NOTE | 2022-09-24 00:38 | NUR ---
PT UP TO BR WITH MANAGER CHANNEL ASSIST. URINE DARK RED. NO CLOTS NOTED. PRN FOR 3/10 CHRONIC BACK PAIN ADMIN PER EMAR. NO FURTHER NEEDS.
--- NOTE | 2022-09-24 00:49 | NUR ---
SBA TO BATHROOM. PATIENT PROVIDED WITH FRESH PULL UP AND SALAZAR PAD. PATIENT BRUSHED HER TEETH AND WASHED HER FACE. CHANGED GOWN. PATIENT IS BACK IN BED. CALL LIGHT WITHIN REACH. BED ALARM ON FOR SAFETY.
--- NOTE | 2022-09-24 02:00 | NUR ---
PT UP TO BR WITH CHEMICAL EQUIPMENT REPAIRER ASSIST. BACK TO BED, ZENA WELL. ASSESSMENT UNCHANGED. NO NEEDS AT THIS TIME. BED ALARM ON. CALL LIGHT IN REACH.
--- NOTE | 2022-09-24 04:34 | NUR ---
PT RESTING IN BED WITH EYES CLOSED. RESPIRATIONS EVEN. CALL LIGHT IN REACH.
[2022-09-24 05:30] LABS: BASOPHILS 1.2 % (0-2); EOSINOPHILS 4.4 % (0-6); HEMATOCRIT 34.9 % (35.0-50.0); HEMOGLOBIN 11.3 g/dL (12.0-18.0); LYMPHOCYTES 12.4 % (24-44); MCH 29.8 (27-36); MCHC 32.4 g/dl (30-36); MCV 91.9 fl (81-99); MONOCYTES 9.2 % (0-12); NEUTROPHILS 72.8 % (39-80); PLATELET COUNT 184 K/uL (140-440); RBC 3.79 M/ul (4.3-5.7); RDW 13.6 (10.5-15.0)
[2022-09-24 05:37] VITALS: BP 132/71
--- NOTE | 2022-09-24 05:37 | NUR ---
PT UP TO BR WITH SADDLE CUTTER ASSIST. BACK TO BED, ZENA WELL. REPORTS BACK PAIN 08/20. PRN FOR PAIN ADMIN PER EMAR. NO FURTHER NEEDS.
[2022-09-24 05:42] LABS: ANION GAP 10.9 (7-21); BUN/CREATININE RATIO 23.43 (6.0-28.6); CALCIUM 8.5 mg/dL (8.5-10.1); CREATININE, SERUM 0.64 mg/dL (0.55-1.02); POTASSIUM 3.9 mmol/L (3.5-5.1)
--- NOTE | 2022-09-24 07:49 | NUR ---
PT RESTING EYES CLOSED AT TIME OF SHIFT REPORT, LEFT UNDISTURBED. AWAKE NOW DENIES OFFER TO GET UP TO THE CHAIR, STATES SHE WILL LATER. FRESH H20 TO BEDSIDE CALL LIGHT IN REACH.
--- NOTE | 2022-09-24 09:23 | NUR ---
SPOKE TO PATIENT ABOUT THE DISCHARGE PLAN. PATIENT PLANS TO GO HOME WHEN DISCHARGED. PATIENT DOES NOT WANT PLACEMENT. PATIENT HAS MANY FRIENDS TO HELP. PATIENT'S DEMOGRAPHICS ARE CORRECT IN THE MEDICAL RECORD. PATIENT CAN DO HER OWN ADLS. PATIENT HAS DME, WALKERS,CANE AND GRAB BARS. PATIENT HAS A 3 STORY HOUSE BUT AND IS ABLE TO DO THE STAIRS WITHOUT DIFFICULTY.PATIENT CAN DRIVE HER OWN CAR NEEDED. PATIENT CAN AFFORD HOUSING AND FOOD. PATIENT WILL CONTACT THE EXPLOSIVE OPERATOR SUPERVISOR IF THE DISCHARGE PLAN CHANGES.
--- NOTE | 2022-09-24 10:27 | NUR ---
PT CONTINUES UP IN THE CHAIR VERBALIZES UNDERSTANDING OF NEED TO CALL FOR GETTING UP. SIGN POSTED IN DIRECT VIEW AND CHAIR ALARM IS SET. PT DENIES NEEDS OF AT THIS TIME WAITING TO SEE DR SALGADO
[2022-09-24 11:31] LABS: INR 2.12 (0.80-1.30)
--- NOTE | 2022-09-24 12:57 | NUR ---
ATTEMPTED TO VISIT. PT WAS NOT IN ROOM. CONNECTED WITH FRIEND ABIGAIL. TALKED OF SHARED CONNECTIONS AND PRAYER SUPPORT. PRAYED FOR HEALING.
--- NOTE | 2022-09-24 13:29 | NUR ---
PT DOWN TO C/T RETURNS TO CHAIR, SITTING WITH A FRIEND. IV HOOKED BACK UP PT C/O PAIN. SITE IS RED AND PUFFY, FLUIDS STOPPED NEW IV SITE TO BE ESTABLISHED.
[2022-09-24 13:57] VITALS: BP 111/64
--- NOTE | 2022-09-24 15:33 | NUR ---
PT RETURNS TO REST IN BED AFTER NEW IV SITE ESTABLISHED AND FRIEND HAS GONE. SHE DENIES DISCOMFORTS OR NEEDS OF. URINE IS CLEARING UP RETURNING TO A MORE NORMAL COLOR.
--- NOTE | 2022-09-24 19:28 | NUR ---
REPORT RECEIVED FROM DAY SHIFT RN. PT SITTING IN RECLINER ALERT AND ORIENTED. DENIES NEEDS. WHITE BOARD UPDATED. CALL LIGHT IN REACH.
[2022-09-24 20:05] VITALS: BP 137/99
--- NOTE | 2022-09-24 20:19 | NUR ---
pt BACK IN BED FROM RESTROOM, SBA WITH FWW. ASSISTED TO REMOVE SHOES AND SOCKS. VS COMPLETE, STABLE. pt HAD FLUSHED VOID, VOID MISSED HAT REPORTS "ALMOST BACK TO NORMAL COLOR". RESTING IN BED WITH CALL LIGHT AND PERSONAL SUPPLIES IN REACH.
--- NOTE | 2022-09-24 21:00 | NUR ---
ANSWERED CALL LIGHT. SBA. PATIENT USED THE BATHROOM AND VOIDED 100ML DARK RED/BLOODY URINE. PATIENT IS BACK IN BED. NO OTHER NEEDS AT THIS TIME. BED ALARM ON FOR SAFETY.
--- NOTE | 2022-09-24 22:30 | NUR ---
SBA TO BATHROOM AND BACK TO BED. PATIENT VOIDED 125ML DARK RED/BLOODY URINE. PRIMARY RN WAS IN THE ROOM WITH PATIENT.
--- NOTE | 2022-09-24 22:54 | NUR ---
EVENING ASSESSMENT COMPLETE. SCHEDULED MEDS ADMIN PER EMAR. PT REPORTS BACK PAIN 5/10. PRN FOR PAIN ADMIN PER EMAR. PT UP TO BR TO VOID DARK RED URINE. NO CLOTS NOTED. BACK TO BED, ZENA WELL. PT DENIES QUESTIONS OR CONCERNS. CALL LIGHT IN REACH. BED ALARM FOR SAFETY.
--- NOTE | 2022-09-25 00:26 | NUR ---
CALL LIGHT ANSWERED. IV PUMP ALARMING. ISSUE RESOLVED. 1PA WITH FWW TO VOID 100 ML RED TINGED URINE. URINE APPEARS ELEVATOR ATTENDANT THIS TIME THAN LAST. BACK TO BED, ZENA WELL. NO FURTHER NEEDS.
--- NOTE | 2022-09-25 00:50 | NUR ---
BED ALARMING. PATIENT GOT UP AND WANTS TO USE THE BATHROOM. PATIENT C/O THE GOWN SHE WAS WEARING IS HEAVY AND HOT AND SHE CAN NOT GET SLEEP. BROUGHT 3 KINDS OF GOWN THAT SHE CAN CHOOSE FROM. SHE IS NOW WEARING THE OLD LARGE GOWN. BED ALARM ON FOR SAFETY.
--- NOTE | 2022-09-25 02:03 | NUR ---
MD TO FLOOR. VERBAL ORDER RECEIVED TO DC IVF. VERIFIED WITH READBACK METHOD. PT UP TO BR WITH AMMUNITION AND EXPLOSIVES HANDLER. BACK TO BED. IV SL. NO FURTHER NEEDS. BED ALARM FOR SAFETY.
--- NOTE | 2022-09-25 03:12 | NUR ---
PATIENT CALLED TO USE THE RESTROOM. SBA. VOIDED 200ML LIGHT RED. PATIENT IS BACK IN BED. ALARM ON FOR SAFETY.
--- NOTE | 2022-09-25 04:15 | NUR ---
CALL LIGHT ANSWERED. PT UP TO BR WITH FWW AND MINIMAL SBA TO VOID 300 ML LIGHT RED URINE. BACK TO BED, ZENA WELL. ASSESSMENT UNCHANGED. BED ALARM IN PLACE. NO FURTHER NEEDS.
[2022-09-25 06:21] VITALS: BP 139/72
--- NOTE | 2022-09-25 06:43 | NUR ---
PT UP TO BR WITH EXAMINER RATING CLERK ASSIST TO VOID PINK COLORED URINE. BACK TO BED, ZENA WELL. VS AND I&O OBTAINED. NO FURTHER NEEDS.
--- NOTE | 2022-09-25 07:33 | NUR ---
PT RESTING EYES CLOSED AT TIME OF SHIFT REPORT. UP NOW TO TOILET SBA WITH FWW APPEARS STEADY ON HER FEET. SHE REPORTS DR SALGADO WAS IN TO SEE HER EARLIER. PT TO RECLINER FOR MORNING MEAL CALL LIGHT AND NEEDED ITEMS IN REACH.
--- NOTE | 2022-09-25 08:15 | NUR ---
PT UP IN CHAIR FOR BREAKFAST. PT ASKED MOULDER OPERATOR TO TELL RN GAUTAM SHE WOULD LIKE TO SEE HIM TODAY. NURSE NOTIFIED. NO OTHER NEEDS AT THIS TIME. CALL LIGHT IN REACH.
[2022-09-25] MEDS ORDERED: CEPHALEXIN500 MG PO (09:11)
[2022-09-25 09:47] VITALS: BP 131/66
--- NOTE | 2022-09-25 10:20 | NUR ---
PT UP TO THE CHAIR AND EATS MORNING MEAL. DENIES DISCOMFORTS AND AGREES SHE IS READY FOR DC TODAY. ANTICIPATES SEEING UROLOGIST REFERRED. DR SALGADO IN TO SEE HER DC COMPLETE
== END 2022-09-25 10:25 | disposition home or self-care (01) | DRG 690 ==
LOC: ED 00:18 → MS 00:20
PROVIDERS: Internal Medicine; ADMIT Family Medicine; ATTEND Family Medicine
DX: N12 Tubulo-interstitial nephritis, not specified as acute or chronic (principal); R31.0 Gross hematuria; I48.91 Unspecified atrial fibrillation; I10 Essential (primary) hypertension; E78.5 Hyperlipidemia, unspecified; M54.9 Dorsalgia, unspecified; G89.29 Other chronic pain; Z90.49 Acquired absence of other specified parts of digestive tract; Z98.1 Arthrodesis status; Z98.890 Other specified postprocedural states; Z98.49 Cataract extraction status, unspecified eye; Z88.8 Allergy status to other drugs, medicaments and biological substances; Z79.01 Long term (current) use of anticoagulants; Z79.899 Other long term (current) drug therapy; Z79.2 Long term (current) use of antibiotics
CPT/HCPCS: 36415; 74177; 74178; 80048; 80053; 81001; 83605; 83690; 85025; 85610; 85730; 87088; 96361; 96366; 96375; 99285-25; A9270; G0378; J0696; J2405; J7121

== ENCOUNTER 2023-10-03 15:40 | Emergency (ER) | payer OTHER, MEDICARE ==
[~2023-10-03 15:40] MED LIST changes: +CEPHALEXIN500 M1 PO; +CEPHALEXIN500 MG PO; +FLECAINIDE ACE100 MG PO; +METOPROLOL SUC100 MG PO; +ONDANSETRON ODT4 MG PO; +PYRIDIUM100 MG PO; +TYLENOL EXTRA500 MG PO; -VITAMIN D-32000 UNI1 PO; +VITAMIN D250 MCG PO
[2023-10-03 15:59] LABS: BASOPHILS 0.5 % (0-2); EOSINOPHILS 1.7 % (0-6); HEMATOCRIT 45.1 % (35.0-50.0); HEMOGLOBIN 15.2 g/dL (12.0-18.0); LYMPHOCYTES 14.4 % (24-44); MCH 30.5 (27-36); MCHC 33.6 g/dl (30-36); MCV 90.8 fl (81-99); MONOCYTES 7.3 % (0-12); NEUTROPHILS 76.1 % (39-80); PLATELET COUNT 231 K/uL (140-440); RBC 4.97 M/ul (4.3-5.7); RDW 14.3 (10.5-15.0)
[2023-10-03 16:55] LABS: ALBUMIN 3.4 g/dL (3.4-5.0); ALBUMIN/GLOBULIN RATIO 1.13 (1.1-2.4); ALCOHOL, MEDICAL <3 ng/dL (<3); ALKALINE PHOSPHATASE 101 U/L (46-116); ALT (SGPT) 19 U/L (14-59); ANION GAP 16.4 (7-21); AST (SGOT) 22 U/L (15-37); BILIRUBIN, TOTAL 0.7 ng/dL (0.2-1.0); BUN/CREATININE RATIO 19.17 (6.0-28.6); CARBON DIOXIDE 25 mmol/L (21-32); CHLORIDE 101 mmol/L (98-107); CREATININE, SERUM 0.73 mg/dL (0.55-1.02); GLOMERULAR FILTRATION RATE,EST 83 mL/min (>60); POTASSIUM 4.4 mmol/L (3.5-5.1); PROTEIN, TOTAL 6.4 g/dL (6.4-8.2); UREA NITROGEN 14 mg/dL (7-18)
[2023-10-03 17:09] LABS: ABO O; ANTIBODY SCREEN NEGATIVE; RH POSITIVE
[2023-10-03] MEDS ORDERED: ACETAMINOPHEN 500 MG TAB PO ONE (17:15)
[2023-10-03 17:20] VITALS: BP 173/86
== END 2023-10-03 17:20 | disposition home or self-care (01) ==
LOC: ED 15:40
PROVIDERS: Emergency Medicine
DX: S40.012A Contusion of left shoulder, initial encounter (principal); S09.90XA Unspecified injury of head, initial encounter; W01.0XXA Fall on same level from slipping, tripping and stumbling without subsequent striking against object, initial encounter; Z79.899 Other long term (current) drug therapy; Z88.8 Allergy status to other drugs, medicaments and biological substances
CPT/HCPCS: 36415; 70450; 71045; 72170; 73030; 80053; 80307; 85025; 86850; 86900; 86901; 99284-25; A9270; G0480

== ENCOUNTER 2023-12-26 22:38 | Emergency (ER) | payer OTHER, MEDICARE ==
[~2023-12-26] VITALS: Ht 172.7 cm; Wt 122.0 kg
[2023-12-26 22:55] LABS: BASOPHILS 0.6 % (0-2); EOSINOPHILS 2.6 % (0-6); HEMATOCRIT 41.2 % (35.0-50.0); HEMOGLOBIN 13.7 g/dL (12.0-18.0); LYMPHOCYTES 16.9 % (24-44); MCH 30.6 (27-36); MCHC 33.3 g/dl (30-36); MCV 91.9 fl (81-99); MONOCYTES 11.2 % (0-12); NEUTROPHILS 68.7 % (39-80); PLATELET COUNT 233 K/uL (140-440); RBC 4.48 M/ul (4.3-5.7); RDW 14.1 (10.5-15.0)
[2023-12-26 23:04] LABS: INR 2.23 (0.80-1.30); PROTIME 23.7 Sec (11.2-14.2)
[2023-12-26 23:09] LABS: ALBUMIN 3.3 g/dL (3.4-5.0); ALBUMIN/GLOBULIN RATIO 0.92 (1.1-2.4); ALCOHOL, MEDICAL <3 ng/dL (<3); ALKALINE PHOSPHATASE 100 U/L (46-116); ALT (SGPT) 17 U/L (14-59); ANION GAP 14.9 (7-21); AST (SGOT) 15 U/L (15-37); BILIRUBIN, TOTAL 0.7 ng/dL (0.2-1.0); BUN/CREATININE RATIO 19.51 (6.0-28.6); CALCIUM 8.6 mg/dL (8.5-10.1); CARBON DIOXIDE 25 mmol/L (21-32); CHLORIDE 107 mmol/L (98-107); CREATININE, SERUM 0.82 mg/dL (0.55-1.02); GLOMERULAR FILTRATION RATE,EST 72 mL/min (>60); POTASSIUM 3.9 mmol/L (3.5-5.1); PROTEIN, TOTAL 6.9 g/dL (6.4-8.2); UREA NITROGEN 16 mg/dL (7-18)
[2023-12-27 00:17] LABS: BILIRUBIN, URINE POSITIVE (negative); BLOOD/HGB, URINE NEGATIVE (Negative); KETONE, URINE TRACE (Negative); LEUK ESTERASE, URINE NEGATIVE (negative); NITRITE, URINE NEGATIVE (negative)
[2023-12-27 00:31] LABS: AMPHETAMINES, URINE NEGATIVE (NEGATIVE); BARBITURATES, URINE NEGATIVE (NEGATIVE); BENZODIAZEPINE, URINE NEGATIVE (NEGATIVE); BUPRENORPHINE, URINE NEGATIVE (NEGATIVE); CANNABINOID, URINE NEGATIVE (NEGATIVE); COCAINE, URINE NEGATIVE (NEGATIVE); ECSTASY, URINE NEGATIVE (NEGATIVE); FENTANYL, URINE NEGATIVE (NEGATIVE); METHADONE, URINE NEGATIVE (NEGATIVE); OPIATES, URINE NEGATIVE (NEGATIVE); OXYCODONE, URINE NEGATIVE (NEGATIVE); PHENCYCLIDINE, URINE NEGATIVE (NEGATIVE)
[2023-12-27 00:40] VITALS: BP 123/91
== END 2023-12-27 00:40 | disposition home or self-care (01) ==
LOC: ED 22:38
PROVIDERS: Family Medicine
DX: S16.1XXA Strain of muscle, fascia and tendon at neck level, initial encounter (principal); S09.90XA Unspecified injury of head, initial encounter; Z91.81 History of falling; Z88.8 Allergy status to other drugs, medicaments and biological substances; Z79.01 Long term (current) use of anticoagulants; Z79.899 Other long term (current) drug therapy; W18.30XA Fall on same level, unspecified, initial encounter; Y93.01 Activity, walking, marching and hiking
CPT/HCPCS: 36415; 70450; 72125; 80053; 80307; 81003; 85025; 85610; 99284-25; G0480

== ENCOUNTER 2024-01-04 16:24 | Inpatient (IN) | payer MEDICARE, OTHER ==
[~2024-01-04] VITALS: Ht 172.7 cm; Wt 115.3 kg
[~2024-01-04 16:24] MED LIST changes: -PRAVACHOL20 MG PO; +PRAVASTATIN SOD20 MG PO
--- OUTSIDE RECORDS SUMMARY | 2024-01-04 16:26 | XMS ---
PreManage Notification: HEYDI CUMMINS [facility] Activities Coordinator Events No recent Security Events currently on file CRITERIA MET - [facility] - 2 Visits in 30 Days CARE PROVIDERS LINDA NOLAN Internal Medicine Current PHONE: [phone] [place] [facility] Current PHONE: Unknown Tawana has no Care Guidelines for this patient. [facility] VISIT COUNT (12 MO.) [address] [place] [address] TOTAL 3 NOTE: Visits indicate total known visits. 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 [place] TYPE: Emergency COMPLAINT: - TRAUMA DIAGNOSES: - Allergy status to other drugs, medicaments and biological substances - Contusion of left shoulder, initial encounter - Fall on same level from slipping, tripping and stumbling without subsequent striking against object, initial encounter - Other intermediate manager (current) drug therapy - Pain in left shoulder - Unspecified injury of head, initial encounter INPATIENT VISIT TRACKING (12 MO.) No inpatient visits to display in this time frame [email or web address]
[2024-01-04] MEDS ORDERED: SODIUM CHLORIDE 0.9% 1,000 ML IV ONE (16:45)
[2024-01-04 16:51] LABS: BASOPHILS 0.4 % (0-2); EOSINOPHILS 0.5 % (0-6); HEMATOCRIT 43.5 % (35.0-50.0); HEMOGLOBIN 14.9 g/dL (12.0-18.0); LYMPHOCYTES 4.2 % (24-44); MCH 31.2 (27-36); MCHC 34.3 g/dl (30-36); MONOCYTES 6.3 % (0-12); NEUTROPHILS 88.6 % (39-80); PLATELET COUNT 228 K/uL (140-440); RBC 4.78 M/ul (4.3-5.7)
[2024-01-04 17:15] LABS: ALBUMIN 3.6 g/dL (3.4-5.0); ALCOHOL, MEDICAL <3 ng/dL (<3); ALKALINE PHOSPHATASE 92 U/L (46-116); ALT (SGPT) 24 U/L (14-59); ANION GAP 17.5 (7-21); AST (SGOT) 32 U/L (15-37); BILIRUBIN, TOTAL 1.7 ng/dL (0.2-1.0); BUN/CREATININE RATIO 15.49 (6.0-28.6); CALCIUM 8.6 mg/dL (8.5-10.1); CARBON DIOXIDE 24 mmol/L (21-32); CHLORIDE 104 mmol/L (98-107); CREATINE KINASE 685 U/L (26-192); CREATININE, SERUM 0.71 mg/dL (0.55-1.02); GLOMERULAR FILTRATION RATE,EST 85 mL/min (>60); POTASSIUM 3.5 mmol/L (3.5-5.1); PROTEIN, TOTAL 7.2 g/dL (6.4-8.2); UREA NITROGEN 11 mg/dL (7-18)
[2024-01-04 18:00] LABS: BILIRUBIN, URINE POSITIVE (negative); BLOOD/HGB, URINE TRACE-L (Negative); KETONE, URINE SMALL (Negative); LEUK ESTERASE, URINE NEGATIVE (negative); NITRITE, URINE NEGATIVE (negative)
[2024-01-04 18:06] LABS: EPITHELIAL CELLS, URINE SQUAMOUS 1+ /lpf (0-1+)
[2024-01-04 18:08] LABS: CRYSTALS, URINE NONE SEEN (0-1+); WHITE BLOOD CELLS, URINE 41-50 /HPF (0-5)
[2024-01-04 18:09] LABS: BACTERIA, URINE 1+ /hpf (negative); CASTS, URINE NONE SEEN \\lpf; COLLECTION TYPE, URINE CATH; REFLEX CULTURE, URINE Yes (No)
[2024-01-04 18:15] LABS: AMPHETAMINES, URINE NEGATIVE (NEGATIVE); BARBITURATES, URINE NEGATIVE (NEGATIVE); BENZODIAZEPINE, URINE NEGATIVE (NEGATIVE); BUPRENORPHINE, URINE NEGATIVE (NEGATIVE); CANNABINOID, URINE NEGATIVE (NEGATIVE); COCAINE, URINE NEGATIVE (NEGATIVE); ECSTASY, URINE NEGATIVE (NEGATIVE); FENTANYL, URINE NEGATIVE (NEGATIVE); METHADONE, URINE NEGATIVE (NEGATIVE); OPIATES, URINE NEGATIVE (NEGATIVE); OXYCODONE, URINE NEGATIVE (NEGATIVE); PHENCYCLIDINE, URINE NEGATIVE (NEGATIVE)
[2024-01-04] MEDS ORDERED: CEFTRIAXONE/SODIUM CHLORIDE 2 GM/100 ML PIGGYBACK IV ONE (19:00)
[2024-01-04] MEDS ORDERED: ACETAMINOPHEN 325 MG TAB PO PRN (19:45)
[2024-01-04] MEDS ORDERED: ondansetron HCL 4 MG/2 ML VIAL IV PRN (19:45)
[2024-01-04] MEDS ORDERED: SODIUM CHLORIDE 0.9% 1,000 ML IV SCH (19:45)
[2024-01-04 19:50] LABS: INR 1.14 (0.80-1.30); PROTIME 13.9 Sec (11.2-14.2)
--- NOTE | 2024-01-04 20:45 | NUR ---
PT ADMITTED TO ROOM 120 VIA STRETCHER FROM ER. PT REPORTS NOT FEELING STRONG ENOUGH TO GET OFF STRETCHER AND AMBULATE TO BED SO HOVER MAT USED FOR SAFETY. PT HAS FRIEND AT BEDSIDE. PT IS PLEASANTLY CONFUSED, USING HUMOR TO DEFLECT. ORIENTED X SELF AND FRIEND, DATE. DENIES PAIN BUT IS VERY SENSITIVE TO TOUCH ON MOST OF BODY AND YELLS OUT FREQUENTLY W/ CARES. LSC. HRR W/ MURMUR. 1+ EDEMA TO BLE. BLE COOL AND SLOWED CAP REFILL. PUREWICK PLACED FOR URINARY INC-UO YOSI AND ODOROUS. PT UNSURE OF LBM. RAC IV WNL-ORDER FOR NS INFUSION. SMALL ABRASIONS TO LEFT ANKLE AND RIGHT FOOT.
[2024-01-04 20:49] VITALS: BP 152/65
--- NOTE | 2024-01-04 20:50 | NUR ---
Assisted RN with transferring Pt onto bed via Hovermat and checked admission vitals; placed purewick. No other needs expressed by Pt. Call light left in reach. Bed alarms on. Gave Pt fresh ice water and checked DW.
[2024-01-04 21:49] VITALS: BP 152/65
--- NOTE | 2024-01-04 22:43 | NUR ---
PT AWAKE, PLEASANTLY CONFUSED. BED ALARM IN PLACE FOR SAFETY. RAC IV DRSG CLEANSED AND REINFORCED. CALL LIGHT WITHIN REACH.
[2024-01-05] VITALS (10 sets, daily range): BP systolic 110–147; BP diastolic 53–81
--- NOTE | 2024-01-05 01:13 | NUR ---
PT AWAKE, CONTINUES TO BE CONFUSED NEEDING FREQUENT REORIENTATION TO TIME AND SITUATION. TELE PLACED. IVF INFUSING. BED ALARM IN PLACE FOR SAFETY.
--- NOTE | 2024-01-05 03:14 | NUR ---
PT STILL AWAKE, REPORTS DIFFICULTY SLEEPING. ASSISTED TO LAY ON LEFT SIDE, SUPPORTED BY PILLOWS. REORIENTED TO TIME OF DAY AND ENC LIGHTS OUT TO HELP W/ SLEEP. CALL LIGHT WITHIN REACH.
--- NOTE | 2024-01-05 04:07 | NUR ---
PT RESTING IN BED, EYES CLOSED. BED ALARM IN PLACE FOR SAFETY. CALL LIGHT WITHIN REACH.
--- NOTE | 2024-01-05 04:58 | NUR ---
PT AWAKE, CONFUSED. ORIENTED X SELF, DATE. DOES NOT KNOW SITUATION OR SURROUNDINGS. ASSISTED TO SIT EOB. BED ALARM IN PLACE FOR SAFETY. CALL LIGHT WITHIN REACH.
[2024-01-05 05:35] LABS: BASOPHILS 0.5 % (0-2); EOSINOPHILS 2.8 % (0-6); HEMATOCRIT 40.9 % (35.0-50.0); HEMOGLOBIN 13.7 g/dL (12.0-18.0); LYMPHOCYTES 7.8 % (24-44); MCH 30.6 (27-36); MCHC 33.6 g/dl (30-36); MCV 91.1 fl (81-99); NEUTROPHILS 81.9 % (39-80); PLATELET COUNT 222 K/uL (140-440); RBC 4.49 M/ul (4.3-5.7); RDW 14.1 (10.5-15.0)
[2024-01-05 05:45] LABS: INR 1.21 (0.80-1.30); PROTIME 14.6 Sec (11.2-14.2)
[2024-01-05 05:52] LABS: ALBUMIN 3.1 g/dL (3.4-5.0); ALBUMIN/GLOBULIN RATIO 0.91 (1.1-2.4); ANION GAP 16.1 (7-21); BILIRUBIN, TOTAL 1.5 ng/dL (0.2-1.0); BUN/CREATININE RATIO 14.7 (6.0-28.6); CREATININE, SERUM 0.68 mg/dL (0.55-1.02); MAGNESIUM 1.7 mg/dL (1.8-2.4); PHOSPHORUS, INORGANIC 2.2 mg/dL (2.5-4.9); POTASSIUM 3.1 mmol/L (3.5-5.1); PROTEIN, TOTAL 6.5 g/dL (6.4-8.2)
--- NOTE | 2024-01-05 06:51 | NUR ---
PT RESTING W/ EYES CLOSED. BED ALARM IN PLACE FOR SAFETY.
--- NOTE | 2024-01-05 07:41 | NUR ---
PT RESTING QUIET ALERT AT TIME OF SHIFT REPORT. DENIES NEEDS, FRESH H20 TO BEDSIDE CALL LIGHT AND NEEDED ITEMS IN REACH. CHART REVIEWED BOARD UPDATED.
[2024-01-05] MEDS ORDERED: POTASSIUM PHOSPHATE 30 MMOL in DEXTROSE 5% 500 ML IV ONE (08:00)
[2024-01-05] MEDS ORDERED: SODIUM CHLORIDE 0.9% 1,000 ML IV SCH (08:00)
[2024-01-05] MEDS ORDERED: MAGNESIUM CHLORIDE 64 MG TABCR PO ONE (08:00)
--- NOTE | 2024-01-05 09:49 | NUR ---
PT VISITING WITH A GUEST DENIES NEEDS OF ANYTHING. BREAKFAST COMPLETE
--- NOTE | 2024-01-05 11:03 | NUR ---
P/T IN TO WORK WITH PT SHE IS ABLE TO STAND ON HER OWN AND TRANSFER TO THE CHAIR. PT IS WEAK AND UNSTEADY BUT TRANSFERRED WITHOUT DIRECT ASSIST. CONTINUES WITH P/T AT THIS TIME
--- NOTE | 2024-01-05 11:46 | NUR ---
PT REMAINS UP IN THE CHAIR AT THIS TIME USING HER TABLET DENIES NEED OF ANYTHING. SHE IS ABLE TO DEMONSTRATE USE OF HER CALL LIGHT WHEN QUESTIONED WHAT TO DO IF SHE NEEDS ASSIST.
[2024-01-05] MEDS ORDERED: PHARMACY RENAL DOSE ADJUSTMENT 1 DOSE MISC PO SCH (12:00)
--- NOTE | 2024-01-05 12:46 | NUR ---
PT UP TO THE BEDSIDE COMMODE ABLE TO VOID THEN RETURNS TO RECLINER. VISITOR IS PRESENT PT DRINKING A MILKSHAKE CALL LIGHT IN LAP
--- NOTE | 2024-01-05 13:50 | NUR ---
PT TO THE BSC AGAIN BUT UNABLE TO MOVE HER BOWELS. DENIES DISCOMFORT STATES SHE JUST FEELS THE URGE TO GO. SHE RETURNS TO THE CHAIR AGREES TO CALL IF SHE NEEDS TO GO AGAIN
--- NOTE | 2024-01-05 15:24 | NUR ---
PT SITTING UP IN THE CHAIR VISITING WITH GUESTS X3 DENIES NEEDS OF
[2024-01-05] MEDS ORDERED: WARFARIN PER PHARMACY PROTOCOL PO SCH (16:00)
[2024-01-05] MEDS ORDERED: WARFARIN SOD 5 MG TAB PO SCH (16:00)
[2024-01-05] MEDS ORDERED: CEFTRIAXONE/SODIUM CHLORIDE 2 GM/100 ML PIGGYBACK IV SCH (18:00)
--- NOTE | 2024-01-05 18:30 | NUR ---
PT UP TO THE TOILET THEN TO REST IN BED. TV ADJUSTED TO [place] PER REQUEST FRESH H20 AND NEEDED ITEMS AT BEDSIDE. PT AGREES SHE IS COMFORTABLE DENIES FURTHER NEEDS
--- NOTE | 2024-01-05 20:09 | NUR ---
PT AWAKE, ALRMS GOING OFF, TRYING TO GET OUT OF BED. REDIRECTED, ALERT TO SELD, PLACE BUT NOT DATE. COOPERATIVE. IVF INFUSING LAC, PATENT, C/O DISCOMOFRT L HIP. PURE WICK IN PLACE, PATENT, DRAINING MDARK YELLOW URINE. TEACHING DONE. BRUISING l MID TOENAIL, SCAB r HIP. EDEMA 2+ MID LOWER CALF AND FEET, PULSES PALBABLE. TELE#[address], DENIES CP. MURMUR PRESENT. WATCHING TV. LE ELEVEATED
[2024-01-05] MEDS ORDERED: POLYETHYLENE GLYCOL 3350 1 PACKET PO SCH (21:00)
--- NOTE | 2024-01-05 23:59 | NUR ---
AWAKEN EASILY, NO FURTHER C/O PAIN, ORIENTED, RESTSLESS AT TIMES, REDIRECTABLE. IVF INFUSING. PURE WICK IN PLACE, DRAINING DARK COLORED URINE. EDEMAT O LE/FEET, LE ELEVATED
[2024-01-06] VITALS (12 sets, daily range): BP systolic 112–167; BP diastolic 57–96
--- NOTE | 2024-01-06 01:33 | NUR ---
Awakens easily, no s/s xditress or c/o pain. on room air, ivf infusing. helped with reposwitioning after several cues. edema to le still no changes, elevated. pure wick patent draining dark colored urine, changed. procedure explained, pt cooperative. Tele#[address], afib rhythm
--- NOTE | 2024-01-06 04:09 | NUR ---
2 new IV sites started by Cathie MAYA on RA, procedures explained to pt, tolerated well. WAs incontinent of urine, skin care done, pure wick in place. patent now. helped with turning and repositioning. cooperative, tele#[address] afib, denies CP. IVF infusing. c/o hip neck and back pain when turning, denies need for pain med
[2024-01-06 05:33] LABS: BASOPHILS 0.7 % (0-2); EOSINOPHILS 6.6 % (0-6); HEMATOCRIT 36.4 % (35.0-50.0); HEMOGLOBIN 12.4 g/dL (12.0-18.0); LYMPHOCYTES 13.1 % (24-44); MCHC 34.1 g/dl (30-36); MCV 90.9 fl (81-99); MONOCYTES 8.3 % (0-12); NEUTROPHILS 71.3 % (39-80); PLATELET COUNT 197 K/uL (140-440); RDW 14.1 (10.5-15.0)
--- NOTE | 2024-01-06 05:33 | NUR ---
AWAKE MOST OF THIS SHIFT, ALERT TO SELF AND PLACE BUT NOT SITUATION OR DATE. PLEASANT AND COOPERATIVE. IVF INFUSING. BRUISING AND TENDERNESS OF L AND RIGHT HIPS. EDEMA TO ANKLES AND FEET. BRUISEING R ANKLE AND BACK IMPROVING. DENIES NEED OFR PAIN MED. PURE WICK IN PLACE, WAS INCONTINENT OF URINE X1, PERICARE DONE. REQUIRES MULTIPLE VUES DURING CARE. BED ALARM IN PLACE.
[2024-01-06 06:16] LABS: INR 1.3 (0.80-1.30); PROTIME 15.4 Sec (11.2-14.2)
[2024-01-06 06:31] LABS: ALBUMIN 2.7 g/dL (3.4-5.0); ALBUMIN/GLOBULIN RATIO 0.87 (1.1-2.4); ANION GAP 15.4 (7-21); BILIRUBIN, TOTAL 0.9 ng/dL (0.2-1.0); BUN/CREATININE RATIO 16.94 (6.0-28.6); CREATININE, SERUM 0.59 mg/dL (0.55-1.02); MAGNESIUM 1.7 mg/dL (1.8-2.4); PHOSPHORUS, INORGANIC 2.6 mg/dL (2.5-4.9); POTASSIUM 3.4 mmol/L (3.5-5.1); PROTEIN, TOTAL 5.8 g/dL (6.4-8.2)
--- NOTE | 2024-01-06 07:55 | NUR ---
PT RESTING IN BED EYES CLOSED AT TIME OF SHIFT REPORT, LEFT UNDISTURBED. AWAKE NOW OBVIOUSLY CONFUSED. PT STATES SHE IS IN [place] TO SEE HER BROTHER, REORIENTED TO FACT THAT SHE IS IN HOSPITAL, SHE STATES SHE PROBABLY WILL BE SOON. YESTERDAY SHE WAS ORIENTED TO PLACE. FRESH H20 TO BEDSIDE ALARM ON BED IS SET
--- NOTE | 2024-01-06 08:15 | NUR ---
CHANGE IN PT MEDTATION REPORTED TO DR YUN. BREAKFAST IS SERVED PT IS SELF FEEDING AFTER BEING REPOSITIONED UP IN BED
--- NOTE | 2024-01-06 08:41 | NUR ---
Patient is awake and extremely confused. Continues to try and get out of bed. Visitor in room, seems to keep her calm.
--- NOTE | 2024-01-06 08:53 | NUR ---
PT SELF FEEDS MORNING MEAL SITTING UP IN BED SPEAKING WITH A GUEST. AGREES HER BACK FEELS A LITTLE BETTER. SHE HAD C/O BACK PAIN THIS MORNING TYLENOL ADMINISTERED
--- NOTE | 2024-01-06 09:28 | NUR ---
P/T AND O/T IN TO WORK WITH PT.
[2024-01-06] MEDS ORDERED: POTASSIUM CHLORIDE 10 MEQ TABCR PO ONE (09:30)
[2024-01-06] MEDS ORDERED: MAGNESIUM CHLORIDE 64 MG TABCR PO ONE (09:30)
--- NOTE | 2024-01-06 10:35 | NUR ---
PT IS IN RECLINER REMAINS CONFUSED PICKING AT BLANKETS TRYING TO GET UP UNABLE TO ANSWER WHERE SHE IS. CHAIR ALARM IS ON FEET ARE ELEVATED. PT AGREES SHE IS COMFORTABLE. DEMONSTRATES USE OF CALL LIGHT WITH VERBAL INSTRUCTION. VISITOR PRESENT IN THE ROOM
--- NOTE | 2024-01-06 11:00 | NUR ---
Spoke with Kassie. She states, I know you. She cannot remember who I am. Discussed I was nurse and visited her spouse and also have seen her when she has been hospitalized. She is upset with friends who were in earlier and repeated asking her if she knows where she is and telling her she cannot ambulate. We discussed its hospital policy for her to call for assistance to walk to the bathroom. I asked her to please use her call light. She lives alone in a 3 story home. She feels she is doing ok. Per friend who went to pick her up night before last, she took an hour to answer the door and was confused. When I brought this up she denies. We then discussed having a UTI causes confusion she was more accepting of this. I let her know, PT is recommending a SNF for therapy. She states she has been having issues with her legs and having difficulty getting around. We discussed SNFs and she refuses [facility]. She asks for the next closes place. I let her know this would be or [facility] in [place]. She states she needs to discuss this with J Carlos Gauth[facility]. I let her know I will call him. I also let her know I will send her chart and see which facility has a bed open. [facility] faxed to [facility] and [facility]. [facility] replied they do not have beds open until Jan.12. [facility] does have a bed. They will review the chart.
--- NOTE | 2024-01-06 11:32 | NUR ---
UR CLINICAL REVIEW: 2 MN FOR VERSALUS-MEETS INPT CRITERIA FOR DELIRIUM/UTI MEDICARE INPT 01/04/24 @ 1941 ORDER MATCHES REG NO AUTH REQUIRED PER MEDICARE GUIDELINES DISCHARGE PENDING FURTHER EVALUATION OF NEEDS
--- NOTE | 2024-01-06 11:43 | NUR ---
Patient is sitting upright in chair. Requested to get back in bed. FRANCESCO Gaona was asked and decided they could return to bed after lunch. Trashcan was set under footrest to discourage attempts to get up.
--- NOTE | 2024-01-06 12:02 | NUR ---
PT CONTINUES UP IN THE RECLINER AT THIS TIME DENIES DISCOMFORTS OR NEEDS
--- NOTE | 2024-01-06 12:29 | NUR ---
DC NETWORKING ENGINEER IN TO MEET WITH PT
--- NOTE | 2024-01-06 12:58 | NUR ---
PT SITTING UP IN THE CHAIR SELF FEEDING NOON MEAL. DENIES NEEDS
--- NOTE | 2024-01-06 13:28 | NUR ---
PT IS UP TO BSC HAS BEEN UP AND DOWN TRYING TO MOVE HER BOWELS SINCE YESTERDAY. MIRALAX WAS STARTED YESTERDAY. PT DENIES PAIN STATES SHE JUST FEELS LIKE SHE "NEEDS TO POOP" FRIEND HAS BEEN HERE MUCH OF THE MORNING PT HAS REMAINED UP IN THE CHAIR CHEERFUL AND COOPERATED PLEASANTLY CONFUSED
--- NOTE | 2024-01-06 13:50 | NUR ---
I called J Carlos from [facility] and left a message asking if he can speak with Kassie about placement. He called and left a message and he attempted to call Kassie. She did not recall any of our conversation, but was agreeable to placement. [facility] a bed open. We will see tomorrow when and if they can and if they can accept this pt.
--- NOTE | 2024-01-06 14:05 | NUR ---
PT NOT AVAILABLE FOR VISIT. PROVIDED PRAYER.
[2024-01-06] MEDS ORDERED: SENNOSIDES/DOCUSATE 1 EA TAB PO SCH ×2 (14:26→21:00)
--- NOTE | 2024-01-06 14:38 | NUR ---
medications reconciled
--- NOTE | 2024-01-06 15:11 | NUR ---
SENNA ORDERED FOR CONTINUED CONSTIPATION. PT MOVES TO BED TO REST. C/O NECK ACHE WARM PACK APPLIED
[2024-01-06] MEDS ORDERED: WARFARIN SOD 7.5 MG TAB PO SCH (16:00)
--- NOTE | 2024-01-06 16:35 | NUR ---
PT SITTING UP IN BED VISITING WITH SEVERAL FRIENDS SHE IS UPBEAT AND PARTICAPTORY.
--- NOTE | 2024-01-06 16:44 | NUR ---
Patient was assisted to BSC. Returned to bed once done.
--- NOTE | 2024-01-06 17:52 | NUR ---
PT ASSISTED UP FROM BED BEFORE EVENING MEAL SHE IS FINALLY ABLE TO MOVE HER BOWELS. TO THE RECLINER SELF FEEDING [employer] PROVIDED BY A FRIEND. TV IS SET TO HER PREFERRED CHANNEL CHAIR ALARM IS ON.
--- NOTE | 2024-01-06 18:20 | NUR ---
PT IS UP IN THE CHAIR REQUESTS MOVE TO BED. TV TURNED ON PT ENCOURAGED TO STAY UP FOR A BIT LONGER BECAUSE IT IS SO EARLY
--- NOTE | 2024-01-06 18:37 | NUR ---
Patient is sitting up in chair. Pulled out their IV, RN already in room and did not need to be notified.
--- NOTE | 2024-01-06 20:32 | NUR ---
Pt awakens easily, alert to self but not to place or situation. cooperative. IVF infusing RFA, pure wick was changed and pt pulled out and was incontinent of large amount roman tea colored urine. skin care and whole bed changes. up to edge of bed with 2PA/FWW. required several cues, back to bed, c/o tendernedd lower back and hips area. bruised back healing. edema to le improving, 1+ mid calf down and 1+ ankles and feet, both pitting edema. elevated. pt tolerating liquids well, fall precautions in place, Bed alrm. On room air, clear lungs, tele#[address], afib, denies SOB. tolerated all cares well
--- NOTE | 2024-01-06 22:40 | NUR ---
pt pleasantly confused, pulled iv out, was cooperative when asked if we could restart iv site. new iv placed LFA by Destini craft RN. was incontinent of large amount of urine even with pure wick in place, skin care done clean attends in place. c/o hip and lower body pain with touch and turning. medicated with Tylenol by charge nurse Leigh MAYA. calm now. bed alrm in place, LE elevated, edema no changes. COntinues to explain all cares prior, reassure safety and reinforce teachinf/safety/fall precautions. stated understanding but forgets easily.
[2024-01-07] VITALS (11 sets, daily range): BP systolic 131–157; BP diastolic 64–98
--- NOTE | 2024-01-07 00:37 | NUR ---
awake most of this shift, closes eyes intermitently, no distress. IVF infusing, pure wick in place, Bed alarm. was restless earlier, trying to get out of bed, reoriented
--- NOTE | 2024-01-07 02:20 | NUR ---
RESTLESS, REDIRECTABLE, ON ROOM AIR, LUNGS DIM AT BASES, NO COUGH, IVF INFUSING W/O PROBLEMS. HAS LEFT THIS IV SITE INTACT. LAC. PURE WICK IN PLACE, PATENT. EDEMA TO LE IMPROVED, ELEVATED. ALLEVYN TO R HIP IN PLACE. CONFUSED, ALERT TO SELF, COOPERATIVE.
--- NOTE | 2024-01-07 02:55 | NUR ---
PT AWAKE, HAS NOT SLEPT THIS SHIFT. AUDIBLE WHEEXING HEARD, LUNGS DIM AT BASES, ON ROOM AIR. IVF INFUSING. TOOK DRESSING OFF, BUT DID NOT PULLED AT IV SITE. PATENT. RESTLESS, TRYING TO GET OUT OF BED, REPOSITIONED, REQUIRING SEVERAL CUES. REDIRECTABLE, PLEASANTLY CONFUSED, USED CALL LIGTH AT TIMES, RAILS UP, BED ALRM IN PLACE, FALL PRECAUTIONS. PURE WICK IN PLACE, DRAINING LIGHT YELLOW URINE.
--- NOTE | 2024-01-07 03:02 | NUR ---
PT HAS MADE MANY ATTEMPS TO GET OUT OF BED FOR A VARIETY OF REASONS. STAFF HAVE RESPONDED TO THE BED ALARM MANY TIMES. PT NEEDS REDIRECTION TO STAY IN BED.
--- NOTE | 2024-01-07 03:12 | NUR ---
DR YUN NOTIFIED OF PTS NO SLEEP AND INCREASED RESLTESSNESS AND AGITATION, TRYING TO GET OUT OF BED AND PULLING IV TUBING AND TELE OFF. NEW ORDERS TO STOP TELE AND IVF. TO GIVE SEROQUEL 12.5MG PO NOW AND IF STILL AGITATED/RESTLESS WITHIN 1-2 HRS TO GIVE ANOTHER 12.5MG PO DOSE ONCE.
[2024-01-07] MEDS ORDERED: QUETIAPINE FUMARATE 25 MG TAB PO ONE (03:15)
[2024-01-07] MEDS ORDERED: QUETIAPINE FUMARATE 25 MG TAB PO SCH (03:15)
[2024-01-07] MEDS ORDERED: QUETIAPINE FUMARATE 25 MG TAB PO PRN (04:00)
--- NOTE | 2024-01-07 04:04 | NUR ---
SEROQUEL GIVEN, PT FEET EXTREMELY COLD, LEGS COLD, BUT PT STATES SHE IS WARM. 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 WITH ASSISTANCE RAILWAY SWITCHMAN, PT REPOSITIONED. COMPLAINS OF LEFT ANKLE PAIN, NOTED TO BE SWOLLEN, PRIMARY RN DEMETRI STATES THAT SWELLING HAS DECREASED SINCE ADMISSION. SECOND TOENAIL DISCOLORED PT STATED SHE HIT HER FOOT WHEN SHE FELL. EMCOURAGED PT TO TRY TO SLEEP. ASKED TO BE COVERED WITH LIGHT SHEET. PUREWICK IN PLACE, ATTENDS DRY. BED ALARM IN PLACE; LIGHTS OUT
--- NOTE | 2024-01-07 04:13 | NUR ---
Received seroquel 12.5mg po. opens eyes easily, calmer, IVF and tele stopped earlier as per orders. legs edema improved, elevated. Bed alrms in place
--- NOTE | 2024-01-07 04:30 | NUR ---
pt still restless, took gown of and threw her pillows to the floor, feet hanging off bed. pleasant and redirectable
--- NOTE | 2024-01-07 04:59 | NUR ---
pt took gown off again. restless, fidgetty in bed, LE hanging off. edema more noticiable, cold, carin colored toes. Repositioned in bed, painful when transgerring. medicated with Tylenol 650mg po and second dose of seroquel 12.5mg po. Bed alrms in place
--- NOTE | 2024-01-07 05:10 | NUR ---
pt still restless, drowsy, trying to get out of bed, semireceptive to instructions. cont to reinforce teachaing. bed alarms in place
--- NOTE | 2024-01-07 05:26 | NUR ---
drowsy, pulled pure wick off, replaced, took gown off again, moving legs in bed, all cares explained, responding in a sarcastic tone of voice, redirectable
[2024-01-07 05:58] LABS: BASOPHILS 0.4 % (0-2); EOSINOPHILS 4.1 % (0-6); HEMATOCRIT 39.5 % (35.0-50.0); HEMOGLOBIN 13.3 g/dL (12.0-18.0); LYMPHOCYTES 7.5 % (24-44); MCH 30.6 (27-36); MCHC 33.6 g/dl (30-36); MCV 91.3 fl (81-99); MONOCYTES 7.5 % (0-12); NEUTROPHILS 80.5 % (39-80); PLATELET COUNT 208 K/uL (140-440); RBC 4.33 M/ul (4.3-5.7); RDW 13.9 (10.5-15.0)
--- NOTE | 2024-01-07 06:08 | NUR ---
NOTED PT HAD LEGS OVER SIDE RAIL, COVERS, AND GOWN OFF. PT SAYING SHE WAS GETTING UP, BUT SHOULD SLELEP. HOB WAS ELEVATED, LOWERED HEAD BED, HAD PUT LEGS ON BED. ATTEMPTED TO COVER HER UP, SHE SAID "I DON'T KNOW WHY YOU ARE WORRIED ABOUT MY BREASTS". SHE CLOSES HER EYES, THEN SUDDENLY OPENS, AND SAYS SHE HAS TO GO. BED ALARM ON.
[2024-01-07 06:13] LABS: ALBUMIN/GLOBULIN RATIO 0.88 (1.1-2.4); ANION GAP 13.7 (7-21); BILIRUBIN, TOTAL 0.9 ng/dL (0.2-1.0); BUN/CREATININE RATIO 9.67 (6.0-28.6); CALCIUM 8.5 mg/dL (8.5-10.1); CREATININE, SERUM 0.62 mg/dL (0.55-1.02); POTASSIUM 3.7 mmol/L (3.5-5.1); PROTEIN, TOTAL 6.4 g/dL (6.4-8.2)
[2024-01-07 06:20] LABS: INR 1.45 (0.80-1.30); PROTIME 16.8 Sec (11.2-14.2)
--- NOTE | 2024-01-07 06:44 | NUR ---
PT WAS LAYING QUIETLY, WITH EYES CLOSED, NEARLY NAKED. TRIED TO PUT COVER ON HER BUT SHE WOKE.
--- NOTE | 2024-01-07 06:58 | NUR ---
Pt continues to take gown, attends, pure wick and bed linen off. Increased irritable, angry, loud tone of voice. Trying to get out of bed and not listening to instructions. Seroquel x2 not effective. WIll notify Dr Lopez.
--- NOTE | 2024-01-07 07:07 | NUR ---
dr munoz notified of pts increaed behavior via phone, no new orders
--- NOTE | 2024-01-07 08:08 | NUR ---
Patient removed their purewick. Bed was soaked, linens changed. Patient is sitting in their chair with the chair alarm on.
--- NOTE | 2024-01-07 08:11 | NUR ---
Patient awake sitting up in chair. Patient is pleasantly confused, she does not reorient to situation/place. Patient has two visitors at this time. Encouraged pt and friends to call if there is any needs.
--- NOTE | 2024-01-07 08:50 | NUR ---
Texted Yoly at [facility] asking if they can accept this pt.
--- NOTE | 2024-01-07 08:59 | NUR ---
Patient is resting in bed, eyes closed, respirations non labored. Patient has no notable distress. Patient is on 2L oxygen per nc, respirations non labored. Close to RN station. No needs at this time, personal supplies and call light within reach.
--- NOTE | 2024-01-07 09:22 | NUR ---
In to see Kassie this morning who is setting up in her chair at the bedside, feet elevated. She is finishing her breakfast food. IMM letter explained, after our conversation Kassie agrees that she is ready to discharge when the doctor feels she is ready for discharge. Stating "I am o.k. with that." IMM letter signed and a copy of the signed letter is given to the patient. There are no family members in the room at this time.
--- NOTE | 2024-01-07 09:35 | NUR ---
Patient sitting up in chair resting, eyes closed, respirations even and non labored. Call light within reach.
--- NOTE | 2024-01-07 10:30 | NUR ---
Received a text from Yoly they have concerns about dc. Will pt have a safe dc. Let her know pt has multiple friends and they are working with pts brother, eLo, from [facility]. Friends plans are for pt to go to an retirement on dc if pt agrees. Pt does have very close friends who are all willing to assist. Yoly would like brothers number and I will call J Carlos from [facility]. Yoly then texted they can accept this pt tomorrow.
--- NOTE | 2024-01-07 11:00 | NUR ---
Called Yoly and we discussed a time for dc and admit. They would like the pt there by 11:00 tomorrow. I update pt and friends are in the room. Friend states she will be able to drive Kassie when she discharges.
--- NOTE | 2024-01-07 11:29 | NUR ---
Patient sitting up in their chair sleeping.
--- NOTE | 2024-01-07 11:48 | NUR ---
Patient in chair resting, eyes closed, respirations even and non labored. Patient has no notable distress. Personal supplies and call light within reach.
--- NOTE | 2024-01-07 12:54 | NUR ---
Patient confused, she removed her gown and says she needs to leave. Patient reoriented to room and situation, pt unable to stay on task with direction. Patient assisted to bed for a nap. Bed alarm intact, fall mats in place, close to RN station.
--- NOTE | 2024-01-07 13:30 | NUR ---
As I was seeing other pts on the floor, I noticed Kassie is lying sideways in bed. Spoke with RN and she states pt is confused and having behaviors.She is very restless and they gave her seroquel. I texted Yoly and updated this pt may not be able to dc tomorrow. Pt placement was tenatively moved to Saturday. They already have 4 admits for Saturday, if any fall through they can admit Kassie. If not, they will look at admiting on Saturday. I spoke with Dr. Lopez and he feels this is a better plan. I spoke with Kassie and she denies having a POA. She states Niiva, J Carlos, and Leo are friends and family, but do not speak for her. I will check with pt tomorrow to see if she wants to name a medical rep. if she is mentally clearer. I called J Carlos and was able to get Henrique phone number [phone]. Admitting notified to update contacts.
--- NOTE | 2024-01-07 14:45 | NUR ---
Patient continues to be extremely confused. They were able to get up and used the BSC. They are back in bed with a purewick applied. Continues to pull off gown and blankets. Patient healthcare applications analyst keeping watch from nurses station.
--- NOTE | 2024-01-07 15:52 | NUR ---
PATIENT RESTING IN BED, EYES CLOSED, RESPIRATIONS EVEN AND NON LABORED.
[2024-01-07] MEDS ORDERED: WARFARIN SOD 5 MG TAB PO SCH (16:00)
[2024-01-07] MEDS ORDERED: SODIUM CHLORIDE 0.9% 1,000 ML IV SCH (16:15)
--- NOTE | 2024-01-07 17:44 | NUR ---
Pts friend, Nivia is here. UPdated to possible admit on Frid or Sat now depending on how pt is doing. She states she is available to drive Kassie any day. We also discussed different facilities and their levels of care. Let her know I have a list if she needs. She states pts brother was here last week and pt will listen to him.
--- NOTE | 2024-01-07 18:11 | NUR ---
Patient is resting and asleep in bed. Charge nurse and FRANCESCO Jones were consulted about evening vitals and they instructed to hold off and let the patient sleep.
--- NOTE | 2024-01-07 18:20 | NUR ---
Patient in bed resting, eyes closed, respirations even and non labored. Patient has no notable distress. Personal supplies and call light within reach. bed alarm intact, call light within reach.
--- NOTE | 2024-01-07 19:22 | NUR ---
RECEIVED REPORT FORM FRANCESCO OVERTON. PT APPEARS TO BE ASLEEP. BED ALARM AND FALL MATS IN PLACE. CALL LIGHT WITHIN REACH.
[2024-01-07] MEDS ORDERED: DULOXETINE HCL 20 MG CAP PO SCH (21:00)
--- NOTE | 2024-01-07 21:15 | NUR ---
Drowsy, hob elevated, was incontinent of urine, skin care and clean attends in place. pure wick placed in. semicooperative with turning and repositioning. Bed alrms on. took sips of water. Primary nurse in room
--- NOTE | 2024-01-07 21:30 | NUR ---
PT RESTING, SOMEWHAT RESTLESS. VSS. ORIENTED X SELF, HOSP. DENIES PAIN BUT MOANS/GROANS W/ ACTIVITY AND TOUCH. ATTEMPTED TO GET PT OOB TO BSC BUT PT TOO DROWSY. NEEDED FREQUENT CUEING TO TAKE MEDS AND SWALLOW. PT EASILY AGITATED W/ CONTINUOUS PRODDING. LSC DIM. HRIR W/ MURMUR. BTA. INC URINE X 1-PUREWICK PLACED FOR HS, URINE ODOR NOTED. RIGHT KNEE DRSG CHANGED-FOAM APPLIED. LARGE BRUISE TO BACK. SMALL ABRASIONS TO BILAT FEET. LAC W/ IVF INFUSING. BED ALARM AND FALL MATS IN PLACE. CALL LIGHT WITHIN REACH.
--- NOTE | 2024-01-07 22:58 | NUR ---
PT APPEARS ASLEEP, SOME FIDGETING. BED ALARM IN PLACE. CALL LIGHT WITHIN REACH.
--- NOTE | 2024-01-08 00:33 | NUR ---
PT AWAKE, PLEASANT AND CONFUSED. PT STRAIGHTENED OUT IN BED AND REPOSITIONED. HEAT PACK APPLIED TO NECK FOR C/O PAIN. BED ALARM AND FALL MATS IN PLACE. NEW IVF BAG HUNG.
--- NOTE | 2024-01-08 03:26 | NUR ---
Pt waving, "I just made a mess, I peed all over". purwick in place, had absorved dark yellow urine QS earlier. pt pulled purwick off. Up to edge of bed for bed changing. reqquired multiple cuing, "my feet are tangled, dont work", able to walk sideways after many cuing. back to bed, tolerated fair, c/o R neck and hips/legs pain, unable to state pain number. Aware of self and place. Purewick changed, attends in place, and gown back on. IVF infusing LAC. took sips of fluids, edema to LE still present.
--- NOTE | 2024-01-08 03:34 | NUR ---
medicated with tylenol 650mg 6/10 R neck, back, hips and legs pain. repositioned self in bed towards left side
--- NOTE | 2024-01-08 04:09 | NUR ---
PT AWAKE, PLEASANTLY CONFUSED. REORIENTED. LAC IV INFUSING NS. BED ALARM IN PLACE.
--- NOTE | 2024-01-08 05:35 | NUR ---
AWAKE, PLEASANTLY CONFUSED. BED ALARM IN PLACE. VSS, B/P SLIGHTLY ELEVATED. LAB IN TO DRAW BLOOD.
[2024-01-08 05:45] LABS: BASOPHILS 0.8 % (0-2); HEMATOCRIT 40.4 % (35.0-50.0); HEMOGLOBIN 13.4 g/dL (12.0-18.0); LYMPHOCYTES 11.8 % (24-44); MCH 30.5 (27-36); MCHC 33.1 g/dl (30-36); MCV 92.3 fl (81-99); MONOCYTES 8.9 % (0-12); NEUTROPHILS 72.5 % (39-80); PLATELET COUNT 214 K/uL (140-440); RBC 4.37 M/ul (4.3-5.7); RDW 14.1 (10.5-15.0)
[2024-01-08 06:01] LABS: ALBUMIN 2.8 g/dL (3.4-5.0); ALBUMIN/GLOBULIN RATIO 0.8 (1.1-2.4); ANION GAP 12.9 (7-21); BILIRUBIN, TOTAL 0.8 ng/dL (0.2-1.0); BUN/CREATININE RATIO 11.11 (6.0-28.6); CALCIUM 8.3 mg/dL (8.5-10.1); CREATININE, SERUM 0.63 mg/dL (0.55-1.02); POTASSIUM 3.9 mmol/L (3.5-5.1); PROTEIN, TOTAL 6.3 g/dL (6.4-8.2)
[2024-01-08 06:15] LABS: INR 1.71 (0.80-1.30); PROTIME 19.2 Sec (11.2-14.2)
[2024-01-08 06:48] VITALS: BP 160/90
[2024-01-08 06:49] VITALS: BP 160/90
[2024-01-08] MEDS ORDERED: SODIUM CHLORIDE 0.9% 500 ML IV SCH (07:45)
--- NOTE | 2024-01-08 08:00 | NUR ---
In and spoke with pt. She is much more clear in her thoughts today. Pt wants to dc to [facility] and feels she needs therapy. Updated Dr. Lopez.
--- NOTE | 2024-01-08 08:15 | NUR ---
PT UP TO CHAIR. LINENS CHANGED, GOWN CHANGED. AM CARE COMPLETE.
--- NOTE | 2024-01-08 09:30 | NUR ---
Patient up to restroom with PT/OT, appeared to tolerate well using FWW/2PA. Patient in pleasant mood, she reports she slept well. Patient back to chair, eating breakfast. No current needs, personal supplies and call light within reach.
--- NOTE | 2024-01-08 09:40 | NUR ---
Notified by Dr. Carlos he feels pt is ready for dc also. I contact Yoly at [facility] and they will accept this pt today. They wouldlike her there around 1130. Dr. Carlos notified and working on orders. I called Veronica and she will be here near 10:30. She has already gathered pts clothing for a SNF.
[2024-01-08 10:00] VITALS: BP 132/63
--- NOTE | 2024-01-08 10:00 | NUR ---
Orders, RX, and PASRR faxed. All other papers placed in envelope and given to recharger for transport.
[2024-01-08] MEDS ORDERED: CEFDINIR300 MG PO (10:19)
[2024-01-08 10:29] VITALS: BP 132/63
--- NOTE | 2024-01-08 10:40 | NUR ---
Report called to FRANCESCO Mcneill at [facility]. All questions answered.
[2024-01-08] MEDS ORDERED: DULOXETINE HCL 20 MG CAP PO SCH (16:00)
== END 2024-01-08 10:50 | DRG 689 ==
LOC: ED 16:24 → MS 19:41
PROVIDERS: Emergency Medicine; ADMIT Family Medicine; ATTEND Family Medicine
DX: N39.0 Urinary tract infection, site not specified (principal); G92.8 Other toxic encephalopathy; M62.82 Rhabdomyolysis; I48.21 Permanent atrial fibrillation; T43.595A Adverse effect of other antipsychotics and neuroleptics, initial encounter; E87.6 Hypokalemia; E83.42 Hypomagnesemia; M54.50 Low back pain, unspecified; F03.90 Unspecified dementia, unspecified severity, without behavioral disturbance, psychotic disturbance, mood disturbance, and anxiety; Z88.8 Allergy status to other drugs, medicaments and biological substances; Z79.899 Other long term (current) drug therapy; Z79.01 Long term (current) use of anticoagulants; Z98.890 Other specified postprocedural states
CPT/HCPCS: 36415; 70450; 71045; 73502; 80053; 80307; 81001; 82140; 82553; 83735; 84100; 85025; 85610; 87088; 97162; 97165; 97530; 97535; A9270; G0480; J0696; J7030; J7060

== ENCOUNTER 2024-03-05 07:57 | Emergency (ER) | payer MEDICARE, OTHER ==
[~2024-03-05] VITALS: Ht 172.7 cm; Wt 116.6 kg
[~2024-03-05 07:57] MED LIST changes: +CEFDINIR300 MG PO
[2024-03-05 08:16] LABS: BASOPHILS 0.5 % (0-2); EOSINOPHILS 2.2 % (0-6); HEMATOCRIT 43.2 % (35.0-50.0); HEMOGLOBIN 14.6 g/dL (12.0-18.0); LYMPHOCYTES 14.3 % (24-44); MCH 30.5 (27-36); MCHC 33.7 g/dl (30-36); MCV 90.4 fl (81-99); MONOCYTES 8.3 % (0-12); NEUTROPHILS 74.7 % (39-80); PLATELET COUNT 252 K/uL (140-440); RBC 4.78 M/ul (4.3-5.7); RDW 14.9 (10.5-15.0)
[2024-03-05 08:24] LABS: INR 1.91 (0.80-1.30); PROTIME 21.9 Sec (11.2-14.2)
[2024-03-05 08:29] LABS: ALBUMIN 3.5 g/dL (3.4-5.0); ALBUMIN/GLOBULIN RATIO 0.92 (1.1-2.4); ALCOHOL, MEDICAL <3 ng/dL (<3); ALKALINE PHOSPHATASE 123 U/L (46-116); ALT (SGPT) 18 U/L (14-59); ANION GAP 10.5 (7-21); AST (SGOT) 22 U/L (15-37); BILIRUBIN, TOTAL 0.7 ng/dL (0.2-1.0); BUN/CREATININE RATIO 23.33 (6.0-28.6); CALCIUM 9.2 mg/dL (8.5-10.1); CARBON DIOXIDE 30 mmol/L (21-32); CHLORIDE 102 mmol/L (98-107); GLOMERULAR FILTRATION RATE,EST 64 mL/min (>60); POTASSIUM 4.5 mmol/L (3.5-5.1); PROTEIN, TOTAL 7.3 g/dL (6.4-8.2); UREA NITROGEN 21 mg/dL (7-18)
[2024-03-05] MEDS ORDERED: HYDROmorphone HCL 1 MG/ML SYR IV ONE (08:30)
[2024-03-05] MEDS ORDERED: HYDROmorphone HCL 1 MG/ML SYR IV PRN (09:15)
[2024-03-05 12:57] VITALS: BP 132/64
== END 2024-03-05 12:57 | disposition home or self-care (01) ==
LOC: ED 07:57
PROVIDERS: Emergency Medicine
DX: M54.6 Pain in thoracic spine (principal); M54.50 Low back pain, unspecified; S09.93XA Unspecified injury of face, initial encounter; M54.2 Cervicalgia; I48.91 Unspecified atrial fibrillation; Z98.1 Arthrodesis status; Z88.8 Allergy status to other drugs, medicaments and biological substances; Z79.01 Long term (current) use of anticoagulants; Z79.899 Other long term (current) drug therapy; W06.XXXA Fall from bed, initial encounter
CPT/HCPCS: 36415; 70450; 72125; 72128; 72131; 80053; 85025; 85610; 96374; 96376; 99284-25; G0480; J1171